=== PATIENT | male | born 1950 | race Caucasian/White ===

== ENCOUNTER 2017-11-16 21:04 | Inpatient (IN) | payer OTHER, SELFPAY ==
[2017-11-16] VITALS (8 sets, daily range): BP systolic 172–222; BP diastolic 93–111; PULSE 51–92; RESP 15–19; TEMP 35.8–36.4; O2SAT 95–97; BMI 50.1
--- NOTE | 2017-11-16 21:12 | RAD_ITS ---
STUDY: X-RAY CHEST REASON FOR EXAM: Male, 66 years old. Cough TECHNIQUE: Single frontal view COMPARISON: None. FINDINGS: The lungs are not fully expanded. There is no demonstrated pleural abnormality. Cardiomegaly. Normal mediastinum and deandre. Normal visualized pulmonary arteries. Normal visualized aortic arch and descending thoracic aorta. Normal visualized thoracic spine. Normal visualized ribs, clavicles, and shoulders. There is no demonstrated abnormality of the visualized soft tissue structures of the upper abdomen. RAD/Chest 1 View IMPRESSION: Cardiomegaly. Electronically Signed: Jagdish Benito DO at 22:34 EDT Tel [phone], Service support ,
--- NOTE | 2017-11-16 21:12 | EKG12_ITS ---
Test Reason : NEURO Blood Pressure : / mmHG Vent. Rate : 054 BPM Atrial Rate : 054 BPM P-R Int : 176 ms QRS Dur : 098 ms QT Int : 424 ms P-R-T Axes : 083 -37 -12 degrees QTc Int : 402 ms Sinus bradycardia Left axis deviation Abnormal ECG Confirmed by CATRACHITO CARVAJAL ([id number]), news editor LESTER EMERSON ([id number] on 11/20/2017 1:40:43 PM Referred By: MR Confirmed By:CATRACHITO CARVAJAL
--- NOTE | 2017-11-16 21:12 | CT_ITS ---
STUDY: CT BRAIN WITHOUT CONTRAST REASON FOR EXAM: Male, 66 years old. Right-sided facial droop with numbness RADIATION DOSAGE (If Supplied By Facility): CTDIvol = ( 44.99 ) mGy, DLP = ( 796.11 ) mGycm TECHNIQUE: Transaxial CT imaging of the brain was performed without administration of intravenous contrast material. Individualized dose optimization techniques were used for this CT. COMPARISON: Previous report of 07/05/2010 FINDINGS: Normal soft tissue structures. Normal calvarium. There is mild cerebral atrophy with widening of the extra-axial spaces and ventricular dilatation. There are areas of decreased attenuation within the white matter tracts of the supratentorial brain, consistent with microvascular disease changes. Normal basal ganglia and thalami. Normal brainstem. There is mild cerebellar atrophy. There is no intracranial hemorrhage. There are no findings of an acute ischemic infarction. There is a polypoid defect of the posterolateral left maxillary sinus consistent with a mucoid retention cyst. CT/Brain/Head without Contrast IMPRESSION: Chronic involutional changes of the brain. Small polypoid defect of the posterior left maxillary sinus consistent with a mucoid retention cyst. If acute infarct is clinically suspected, MRI may be helpful for further evaluation at this time. Electronically Signed: Jeffry Conti MD at 22:34 EDT , Service support ,
[2017-11-16 21:16] LABS: Bedside Glucose 118 mg/dL (70-110)
[2017-11-16 21:41] LABS: Absolute Lymphocyte Count 2.22 X10^3/ul (0.83-4.51); Absolute Neutrophil Count 3.6 X10^3/uL (2.0-7.7); Basophil# 0.01 X10^3/uL; Basophil% 0.1 % (0-1); Eosinophil# 0.36 X10^3/uL; Eosinophils% 5.3 % (0-5); Hematocrit 43.5 % (40-54); Hemoglobin 14.6 g/dl (13.0-16.5); Lymphocyte # 2.22 X10^3/ul (4.0); Lymphocyte % 32.6 % (19-41); Mean Corp Hgb Conc 33.6 g/gl (32-36); Mean Corpuscular Hgb 29.6 pg (27.0-32.0); Mean Corpuscular Volume 88.2 fL (80-94); Mean Platelet Vol. 11.1 fl (6.2-12.0); Monocyte# 0.62 X10^3/uL; Monocyte% 9.1 % (0-10); Neutrophil % 52.8 % (47-70); Platelet Count 133 K/mm3 (150-450); RBC Distribution Width CV 13.5 % (11.6-14.6); RBC Distribution Width SD 43.7 fl (35.1-43.9); Red Blood Count 4.93 M/mm3 (4.6-6.2); White Blood Count 6.8 K/mm3 (4.4-11.0)
[2017-11-16 21:42] LABS: POSITIVE COUNT NO; POSITIVE DIFFERENTIAL NO; POSITIVE MORPHOLOGY NO
[2017-11-16 21:45] LABS: Partial Thromboplast Time 34.5 Seconds (24.1-36.2); Prothrombin Time (Protime)PT. 12.9 SECONDS (11.7-14.9)
[2017-11-16 21:48] LABS: Anion Gap 6 (5-15); BUN 23 mg/dL (7-18); BUN/Creat Ratio 15.1 RATIO (10-20); Calcium,Total 8.7 mg/dL (8.5-10.1); Chloride 105 mmol/L (98-107); Creatinine, Serum 1.52 mg/dL (0.70-1.30); EST Glomerular Filtration Rate 49 mL/min (>60); Est Glom Filt Rate - Afr Amer 59 mL/min (>60); Estimated Creatinine Clearance 48.45 ml/min; Glucose 112 mg/dL (74-106); Potassium 4.6 mmol/L (3.5-5.1); Sodium Level 141 mmol/L (136-145)
--- NOTE | 2017-11-16 21:49 | HP.PCM_ITS ---
Problem List (1) Chronic pain syndrome Status: Chronic (2) HTN (hypertension) Status: Chronic Qualifiers: Hypertension type: essential hypertension Qualified Code(s): I10 - Essential (primary) hypertension (3) GERD (gastroesophageal reflux disease) Status: Chronic Qualifiers: Esophagitis presence: esophagitis presence not specified Qualified Code(s) : K21.9 - Gastro-esophageal reflux disease without esophagitis (4) Morbid obesity Status: Chronic (5) S/P kidney transplant Status: Chronic (6) Osteoarthritis Status: Chronic Qualifiers: Osteoarthritis location: unspecified site Osteoarthritis type: unspecified Qualified Code(s): M19.90 - Unspecified osteoarthritis, unspecified site (7) End stage renal failure on dialysis Status: Chronic (8) Cirrhosis of liver Status: Chronic Qualifiers: Hepatic cirrhosis type: unspecified hepatic cirrhosis Ascites presence: unspecified Qualified Code(s): K74.60 - Unspecified cirrhosis of liver (9) Chronic nonalcoholic liver disease Status: Chronic (10) Obstructive sleep apnea Status: Chronic (11) Anemia Status: Chronic Qualifiers: Anemia type: due to chronic kidney disease (12) S/P liver transplant Status: Chronic (13) TIA (transient ischemic attack) Status: Acute Qualifiers: Transient cerebral ischemia type: unspecified Qualified Code(s): G45.9 - Transient cerebral ischemic attack, unspecified (14) Hypertensive emergency Status: Acute History of Present Illness Date of Admission: 11/16/17 Chief Complaint: R sided paresthesias, Facial Droop, transient The patient is a 66 y/o M w/ PMHx: Hx Dooley's Palsy, Morbid Obesity, HTN, HLD, OA , ESRD prior on HD s/p Renal Transplant, NALD w/ Cirrhosis s/p Liver Transplant , PAUL, AOCD who presents to the [facility] ED on 11/16/17 with history of onset right sided facial droop, slurred speech and associated R facial paresthesias as well as RUE paresthesias, witnessed and confirmed per spouse, lasted 20-30 minutes and resolved. He notes that he has had similar episodes of R sided, both upper and lower extremity paresthesias prior to this as well that were transient. The patient and family note that he was supposed to have renal artery stenting but was unable to tolerate the procedure. He has been only following with [facility] he notes and family interested in local option as well given ongoing HTN. He notes he has been having SBP 200-210 frequently toward the evening time and upon awakening but following his AM BP regimen it will transiently improve. In the ED work-up included T 96.4, HR 50s, BP 222/111-->193 /111, RR 15, 96% on RA, unremarkable CBC, normal coags, BMP w/ BUN/Cr 23/1.52, glucose 112, trop < 0.02, EKG with SB, CXR unremarkable, CT head with small polypoid defect posterior L maxillary sinus consistent with mucoid retention cyst. In the ED patient administered hydralazine in the ED prior to admission. Past Medical History Past Medical History (Chronic Problems): Chronic Problems Chronic pain syndrome (Chronic) HTN (hypertension) (Chronic) GERD (gastroesophageal reflux disease) (Chronic) Morbid obesity (Chronic) S/P kidney transplant (Chronic) S/P liver transplant (Chronic) Osteoarthritis (Chronic) Obesity (Chronic) Hyponatremia (Chronic) Hypokalemia (Chronic) Hydronephrosis (Chronic) End stage renal failure on dialysis (Chronic) Cirrhosis of liver (Chronic) Chronic nonalcoholic liver disease (Chronic) Obstructive sleep apnea (Chronic) Hepatic encephalopathy (Chronic) Anasarca (Chronic) Superficial thrombophlebitis (Chronic) Partial small bowel obstruction (Chronic) Anemia (Chronic) Allergies morphine Allergy (Intermediate, Verified 12/02/16 13:22) Unknown DID NOT WORK, GOT WORSE metformin Allergy (Verified 12/02/16 13:22) Other pregabalin [From Lyrica] Allergy (Verified 12/02/16 13:22) Other TREMORS Home Medications: Ambulatory Orders Medication Instructions Recorded Amlodipine [Norvasc] 5 mg PO DAILY 01/14/15 Carvedilol [Coreg] 25 mg PO BID 01/14/15 Docusate 100 mg PO PRN PRN 01/14/15 Losartan Potassium [Cozaar] 25 mg PO BID 01/14/15 Magnesium Oxide [Mag-Ox 400] 1,600 mg PO DAILY 01/14/15 Mycophenolate Mofetil [Cellcept] 1,000 mg PO BID 01/14/15 Pantoprazole Granules [Protonix 40 mg PO DAILY 01/14/15 Granules] Prednisolone 5 mg PO DAILY 01/14/15 Tacrolimus [Astagraf Xl] 1 mg PO BID 01/14/15 Zafirlukast [Accolate] 20 mg PO BID PRN 01/14/15 Fluticasone/Salmeterol [Advair 1 puff INHALATION PRN PRN 11/16/17 250/50 Mcg Diskus] Hydrocodone Bitartrate [Zohydro ER] 5 mg PO PRN PRN 11/16/17 Hydromorphone HCl [Exalgo] 16 mg PO DAILY 11/16/17 Sulfamethoxazole/Trimethoprim 1 each PO QWEEK 11/16/17 [Sulfamethoxazole-Tmp Ds Tablet] Surgical History: - - Renal and Liver Transplant, L TKR, R TKR, L wrist carpal tunnel release, Hernia repair with mesh, Cholecystectomy. Psychiatric History: No pertinent psych hx Lives: Spouse/ Significant Other Smoking Status: Never smoker Tobacco Use: Non-smoker Alcohol: None Drugs: None - *Family History Maternal History Items: No pertinent history Paternal History Items: No pertinent history Review of Systems Constitutional: Reports: Malaise, Fatigue. Denies: Chills, Fever, Weight Change HEENT: Reports: - - Facial Droop. Denies: Head Aches, Sinus Congestion, Sinus Drainage Cardiovascular: Denies: Chest Pain, Palpitations Respiratory: Denies: Cough, Shortness of breath at rest, Sputum production Gastrointestinal: Denies: Abdominal Pain, Nausea, Vomiting Genitourinary: Denies: Dysuria Musculoskeletal: Denies: Joint Pain, Joint Tenderness Skin: Denies: Rash, Wounds Neurological: Reports: Slurred speech, Numbness, Tingling. Denies: Focal weakness Psychiatric: Denies: Anxiety, Depression, Homicidal Ideations, Suicidal Ideations Hematologic/ Lymphatic: Denies: Easy Bruising, Easy Bleeding VTE Information - Inpt Only VTE Present on Admission: No VTE Mechan Device Prophylaxis: SCD's VTE Pharm Prophylaxis ordered?: Yes Patient Problems: Active and Suspected Problems TIA (transient ischemic attack) (Acute) Hypertensive emergency (Acute) Subjective: Laying in the ED bed, NAD, remains completely resolved R sided paresthesias/ facial droop/slurred speech. Objective: Physical Examination: General: awake, alert, oriented x 3 and cooperative, seated upright in the ED bed in no apparent distress. Skin: normal color, turgor, no icterus, cyanosis. HEENT: AT/NC, EOMI, PERRLA, MMM, no carotid bruits or JVD noted. Lungs: CTA bilaterally, moderate effort, mild decrease BL bases, no rales, ronchi or wheezing. Heart: Bradycardic with regular rhythm; no gallop, rub audible. Abdomen: soft, morbidly obese, NTTP, ND, normal BS, unable to assess HSM secondary to habitus. Extremities: no cyanosis, clubbing, or edema. Neurological: patient awake, alert, oriented x 3; cognitive function intact; pupils equally reactive to light and accomodation; cranial nerves II-XII grossly normal, moving all 4 extremities, no focal deficits, strength moderately globally decreased secondary to habitus, lack of abdominal musculature following transplant surgeries, sensation intact, facial droop resolved, FTN, HTS appropriate, negative babinski BL. Psychiatric: affect appears normal, no acute evidence of depressive or anxiety feelings. - Physical Exam Vital Signs Temp Pulse Resp BP Pulse Ox 96.4 F L 92 19 H 185/111 H 97 11/16/17 21:04 11/16/17 21:24 11/16/17 21:24 11/16/17 21:24 11/16/17 21:24 Oxygen Delivery Method Room Air Weight: 339 lb 4.662 oz Body Mass Index (BMI) 50.1 Finger Stick Blood Glucose 118 Laboratory Tests Past 24 Hrs 11/16/17 11/16/17 11/16/17 21:15 21:15 21:15 WBC 6.8 RBC 4.93 Hgb 14.6 Hct 43.5 MCV 88.2 MCH 29.6 MCHC 33.6 RDW 13.5 RDW Differential 43.7 Plt Count 133 L MPV 11.1 Immature Gran % (Auto) 0.100 Neut % (Auto) 52.8 Lymph % (Auto) 32.6 [place] % (Auto) 9.1 Eos % (Auto) 5.3 H Baso % (Auto) 0.1 Absolute Neuts (auto) 3.6 Absolute Lymphs (auto) 2.22 Total Counted Not Reportable PT 12.9 INR 1.0 APTT 34.5 Sodium 141 Potassium 4.6 Chloride 105 Carbon Dioxide 30.0 Anion Gap 6 BUN 23 H Creatinine 1.52 H Estim Creat Clear Calc 48.45 Est GFR (MDRD) Af Amer 59 L Est GFR (MDRD) Non-Af 49 L BUN/Creatinine Ratio 15.1 Glucose 112 H Calcium 8.7 Troponin I < 0.02 POC Glucose 11/16/17 21:09 POC Glucose 118 H Assessment/Plan Active and Suspected Problems TIA (transient ischemic attack) (Acute) Hypertensive emergency (Acute) The patient is a 66 y/o M w/ PMHx: Hx Dooley's Palsy, Morbid Obesity, HTN, HLD, OA , ESRD prior on HD s/p Renal Transplant, NALD w/ Cirrhosis s/p Liver Transplant , PAUL, AOCD who presents to the [facility] ED on 11/16/17 with history of onset right sided facial droop, slurred speech and associated R facial paresthesias as well as RUE paresthesias, witnessed and confirmed per spouse, lasted 20-30 minutes and resolved. He notes that he has had similar episodes of R sided, both upper and lower extremity paresthesias prior to this as well that were transient. (1) Right sided facial droop, slurred speech and associated R facial paresthesias as well as RUE paresthesias secondary to TIA: High risk for CVA given uncontrolled HTN disease. In the ED work-up included CBC unremarkable, BMP w/ BUN/Cr 23/1.52, CT Head w/ no acute process, CXR w/ no acute findings, cardiomegaly. Patient was administered hydralazine in the ED. Will admit to PCU , will obtain MRI Brain, MRA Head and Neck, ECHO, PT/OT/Speech/Nutrition evaluation per protocol. Will consult Neurology for evaluation given complicated presentation w/ hypertensive emergency. Will increase home regimen, has not had PM regimen with PRN hydralazine, maintain on asa and add plavix pending Neurology assessment especially given ? renal artery stenosis, statin w / AM FLP, fall precautions. Mag, TSH pending. (2) Hypertensive Emergency w/ Suspected Renal Artery Stenosis: Ongoing hypertension, uncontrolled, likely secondary to renal artery stenosis with failed stent placement per discussion with patient, given hydralazine in the ED , has not had PM regimen, will increase home regimen w/ norvasc, coreg, losartan , PRN hydralazine. Will obtain Renal Artery US to further assess status of stenosis. As noted above, will maintain on asa, plavix. Will consult Dr. Kelly, Nephrology, secondary to ongoing issues with blood pressure and eagerness to have local parachutist/combatant diver qualified. (3) ESRD prior on HD s/p Renal Transplant, NALD w/ Cirrhosis s/p Liver Transplant: Admission BUN/Cr 23/1.52, unclear current baseline fx, will trend, maintain on home regimen CellCept, prednisone, tacrolimus, prophylactic Bactrim. (4) Chronic Pain Syndrome: Maintain on home chronic pain regimen, noted prior visits with Dr. Beckman. (5) AOCD: Admission Hgb 14.6, stable, repeat CBC in AM. (6) Morbid Obesity: Weight loss and lifestyle changes encouraged, nutrition consulted. (7) GERD: PPI. (8) PAUL: CPAP q HS. (9) DVT Prophylaxis: SCDs, heparin. Code Visit Inpatient E&M: 91496 Init Hosp L3
--- NOTE | 2017-11-16 22:04 | NURSING ---
PT STATED THAT AT 0820 HE WAS HAVING A FACIAL DROOP, RIGHT SIDED WEAKNESS OF HIS ARM AND LEG BUT THAT RESOLVED UPON ARRIVAL.
--- NOTE | 2017-11-16 22:14 | ED.VISSUMM ---
- ER Visit Summary Date of Service: 11/16/17 Chief Complaint: Right-sided facial droop numbness and weakness History of Present Illness: The patient is a 66 M presenting for evaluation secondary to right-sided facial droop numbness and weakness. At 820 this evening the patient had a sudden onset of drooping of the right side of his face, numbness to the right face and right leg, and some slurred speech. This lasted about 30 minutes and then spontaneously resolved. Patient denies any recent illnesses. Patient does have a history of Dooley's palsy in the past, but states that this does not feel similar. Patient has an underlying history of hypertension and a liver and kidney transplant. Patient denies any prior history of stroke. Physical Examination: Vital signs are within normal limits except for initial blood pressure 211/111, repeat blood pressure 185/111, patient is afebrile. General: Patient is well-nourished well-developed and in no acute distress. Head: Normocephalic, atraumatic Eyes: Pupils equal round and reactive bilaterally, extra occular motion intact bialterally ENT: Moist mucous membranes Neck: Supple, no lymphadenopathy, no JVD, no meningismus CVS: Minimal bradycardia with a 2 out of 6 systolic murmur noted, no murmurs, rubs or gallops, radial pulses 2+ bilaterally Resp: Respirations nondistressed, lung sounds clear bilaterally Abdomen: Soft, nontender, nondistended, no palpable masses, normal bowel sounds Back: Nontender Extremities: Nontender, atraumatic, active full range of motion, no peripheral edema Skin: warm, no rashes, no petechia Neuro: Alert and oriented x 4, CN 2-12 intact, no lateralizing neurological defecits, NIH stroke scale is 0 Psyc: Normal affect Test Results: CBC unremarkable, chemistry shows BUN 23 creatinine 1.52, normal coagulation studies and troponin. EKG shows a sinus rate of [address] segments normal T waves and some left axis deviation noted. CT brain shows chronic changes Emergency Department Course and Treatment: Patient presented with symptomatology of a rather clear-cut TIA. Stroke workup is noted as above. Patient was given hydralazine for treatment of blood pressure. This point patient's ABCD 2 score is 5 and is relatively high risk for converting into a stroke I do believe that he requires admission. Patient will be admitted for further workup. Disposition: Admission Impression: 1. TIA 2. Hypertensive emergency This note was generated with [employer] dictation software. It may contain incorrect words, spelling, and punctuation that were not noted in review of the chart prior to signing ED Disposition - Plan for ED Patient: Chief Complaint: Neuro S/Sx Referrals: Shanelle Luz DO [Primary Care Provider] -
--- NOTE | 2017-11-16 22:17 | ED.DCSUM_ITS ---
- ER Visit Summary Date of Service: 11/16/17 Chief Complaint: Right-sided facial droop numbness and weakness History of Present Illness: The patient is a 66 M presenting for evaluation secondary to right-sided facial droop numbness and weakness. At 820 this evening the patient had a sudden onset of drooping of the right side of his face , numbness to the right face and right leg, and some slurred speech. This lasted about 30 minutes and then spontaneously resolved. Patient denies any recent illnesses. Patient does have a history of Dooley's palsy in the past, but states that this does not feel similar. Patient has an underlying history of hypertension and a liver and kidney transplant. Patient denies any prior history of stroke. Physical Examination: Vital signs are within normal limits except for initial blood pressure 211/111, repeat blood pressure 185/111, patient is afebrile. General: Patient is well-nourished well-developed and in no acute distress. Head: Normocephalic, atraumatic Eyes: Pupils equal round and reactive bilaterally, extra occular motion intact bialterally ENT: Moist mucous membranes Neck: Supple, no lymphadenopathy, no JVD, no meningismus CVS: Minimal bradycardia with a 2 out of 6 systolic murmur noted, no murmurs, rubs or gallops, radial pulses 2+ bilaterally Resp: Respirations nondistressed, lung sounds clear bilaterally Abdomen: Soft, nontender, nondistended, no palpable masses, normal bowel sounds Back: Nontender Extremities: Nontender, atraumatic, active full range of motion, no peripheral edema Skin: warm, no rashes, no petechia Neuro: Alert and oriented x 4, CN 2-12 intact, no lateralizing neurological defecits, NIH stroke scale is 0 Psyc: Normal affect Test Results: CBC unremarkable, chemistry shows BUN 23 creatinine 1.52, normal coagulation studies and troponin. EKG shows a sinus rate of [address] segments normal T waves and some left axis deviation noted. CT brain shows chronic changes Emergency Department Course and Treatment: Patient presented with symptomatology of a rather clear-cut TIA. Stroke workup is noted as above. Patient was given hydralazine for treatment of blood pressure. This point patient's ABCD 2 score is 5 and is relatively high risk for converting into a stroke I do believe that he requires admission. Patient will be admitted for further workup. Disposition: Admission Impression: 1. TIA 2. Hypertensive emergency This note was generated with [employer] dictation software. It may contain incorrect words, spelling, and punctuation that were not noted in review of the chart prior to signing ED Disposition - Plan for ED Patient: Chief Complaint: Neuro S/Sx Referrals: Shanelle Luz DO [Primary Care Provider] -
--- NOTE | 2017-11-16 22:24 | NURSING ---
PT STATED TO ME AND DOCTOR YOLIS THAT HIS BLOOD PRESSURE NORMALLY RUNS IN THE 200/100'S. IS SUPPOSE TO FOLLOW UP WITH A SPECIALIST.
--- NOTE | 2017-11-16 22:33 | NURSING ---
NOT GIVING TRANDATE RIGHT NOW BECAUSE OF PULSE, BELOW 60.
[2017-11-16] MEDS: hydrALAZINE 20 MG/ML Vial 10 MG IV (23:15)
--- NOTE | 2017-11-16 23:57 | ECHOD_ITS ---
Reason For Study: TIA/CVA Procedure This was a 2D Doppler, Color Flow transthoracic echocardiogram. The study was technically difficult. Exam performed portable in patient room. Left Ventricle Normal size and thickness. The estimated ejection fraction is 75 %. Stage 1 diastolic dysfunction. No regional wall motion abnormalities noted. Right Ventricle Normal size and thickness. Normal systolic function. Atria Normal left atrium. Normal right atrium. Normal atrial septum. Bubble contrast study negative for right to left interatrial shunt. Mitral Valve The mitral valve is structurally normal. No prolapse or stenosis seen. Tricuspid Valve Normal tricuspid valve. Unable to estimate RV systolic pressure/pulmonary artery pressure due to technically difficult study. Aortic Valve Trisinus/trileaflet aortic valve. Mild diffuse aortic valve thickening. Mild aortic stenosis. Pulmonic Valve Normal pulmonic valve. Great Vessels Normal aortic root. Normal arch. Normal inferior vena cava. Inferior vena cava collapse with sniff. Pericardium/Pleural No pericardial effusion. Medication Performed a rapid injection of agitated mix of 9 cc saline and 1cc air to assess for atrial septal defect. MMode/2D Measurements & Calculations LVIDd: 4.7 cm IVSd: 1.7 cm LVOT diam: 2.1 cm LVIDs: 3.2 cm LVPWd: 1.5 cm LVOT area: 3.5 cm2 RVDd: 2.9 cm FS: 31.5 % Ao root diam: 3.4 cm LAV(MOD-bp): 60.3 ml LA A4 area: 21.2 cm2 LA dimension: 4.9 cm LAV(MOD-bp) Indexed: 23.4 ml/m2 LAV(MOD-sp2): 66.7 ml LAV(MOD-sp4): 52.4 ml RA A4 area: 15.6 cm2 Doppler Measurements & Calculations MV E max femi: 56.2 cm/sec Lat Peak E' Femi: 7.9 cm/sec Med Peak E' Femi: 6.3 cm/sec MV A max femi: 96.3 cm/sec E/E' lat: 7.1 E/E' med: 9.0 MV E/A: 0.58 Ao V2 max: 240.5 cm/sec LV V1 max: 146.5 cm/sec SV(LVOT): 114.7 ml Ao max P.1 mmHg LV V1 max P.6 mmHg Ao V2 mean: 162.1 cm/sec LV V1 mean P.9 mmHg Ao mean P.8 mmHg LV V1 mean: 107.3 cm/sec Ao V2 VTI: 44.1 cm LV V1 VTI: 32.8 cm BENJA(I,D): 2.6 cm2 BENJA(V,D): 2.1 cm2 PA V2 max: 142.5 cm/sec Interpretation Summary The estimated ejection fraction is 75 %. Stage 1 diastolic dysfunction. Bubble contrast study negative for right to left interatrial shunt. Unable to estimate RV systolic pressure/pulmonary artery pressure due to technically difficult study. Mild aortic stenosis. The study was technically difficult. There is no comparison study available. Ordering Physician: Patria Damon Referring Physician: Shanelle Luz Performed By: Amberly Perla RDCS, [facility]
[2017-11-17] VITALS (34 sets, daily range): BP systolic 125–241; BP diastolic 76–138; PULSE 56–95; RESP 17–22; TEMP 36.6–37.2; O2SAT 92–97; BMI 47.9
[2017-11-17 00:32] LABS: Magnesium 1.8 mg/dL (1.6-2.6); Thyroid Stim Hormone (TSH) 2.75 uIU/mL (0.358-3.74)
[2017-11-17] MEDS: hydrALAZINE 20 MG/ML Vial 10 MG IV (00:34)
[2017-11-17] MEDS: HYDROmorphone 0.5 MG/0.5 ML SYRINGE IV ×4 (00:35→16:21)
[2017-11-17] MEDS: Carvedilol 25 MG Tablet PO ×2 (00:35→22:04)
[2017-11-17] MEDS: Clopidogrel Bisulfate 75 MG Tablet PO (00:35)
[2017-11-17] MEDS: Losartan Potassium 50 MG Tablet PO ×2 (00:35→22:04)
[2017-11-17] MEDS: amLODIPine 10 MG Tablet PO (00:35)
[2017-11-17] MEDS: 0.9% NaCl Peripheral Flush Adult/Peds IV ×8 (00:35→12:43)
[2017-11-17] MEDS: Ondansetron 4 MG/2 ML Vial IV ×2 (01:59→17:03)
[2017-11-17] MEDS: oxyCODONE 5 MG Tablet PO ×2 (05:38→22:10)
[2017-11-17] MEDS: Nystatin Powder 15gm Bottle 1 APPLIC TOPICAL ×3 (05:38→22:04)
[2017-11-17 05:46] LABS: Hematocrit 41.9 % (40-54); Hemoglobin 13.8 g/dl (13.0-16.5); Mean Corp Hgb Conc 32.9 g/gl (32-36); Mean Platelet Vol. 10.6 fl (6.2-12.0); Platelet Count 122 K/mm3 (150-450); RBC Distribution Width CV 13.6 % (11.6-14.6); RBC Distribution Width SD 44.3 fl (35.1-43.9); Red Blood Count 4.76 M/mm3 (4.6-6.2); Scan Indicated on CBC? Y/N NO; White Blood Count 6.6 K/mm3 (4.4-11.0)
[2017-11-17 05:59] LABS: Anion Gap 8 (5-15); BUN 23 mg/dL (7-18); BUN/Creat Ratio 15.5 RATIO (10-20); Calcium,Total 8.6 mg/dL (8.5-10.1); Chloride 106 mmol/L (98-107); Cholesterol 173 mg/dL (200); Creatinine, Serum 1.48 mg/dL (0.70-1.30); EST Glomerular Filtration Rate 51 mL/min (>60); Est Glom Filt Rate - Afr Amer 61 mL/min (>60); Estimated Creatinine Clearance 49.76 ml/min; Glucose 147 mg/dL (74-106); High Density Lipoprotein 31 mg/dL; Sodium Level 141 mmol/L (136-145); Triglycerides 211 mg/dL; Very Low Density Lipoprotein 42 mg/dL (5-40)
--- NOTE | 2017-11-17 07:25 | MRI_ITS ---
STUDY: MRI BRAIN WITHOUT CONTRAST REASON FOR EXAM: Male, 66 years old. Dizziness and vomiting TECHNIQUE: Standardized multiplanar fat and water weighted pulse sequences were obtained. COMPARISON: CT the brain on November 17, 2017 FINDINGS: Moderate atrophy and advanced periventricular white matter ischemic changes without mass effect or restricted diffusion. Vertebrobasilar dolichoectasia consistent with systemic hypertension Normal bilateral basal ganglia. Normal thalami. There is no extra-axial fluid accumulation. Normal flow voids within the major intracranial circulation suggesting patency by spin echo criteria. Normal sella turcica, pituitary gland, infundibular stalk, optic chiasm and hypothalamus. Normal tectal plate and pineal gland. Normal midbrain, sharee and medulla. Normal cerebellum. Normal basal cisterns. Normal bilateral temporal bones. Normal bilateral internal auditory canals. No demonstrated orbital abnormality, within the constraints of a routine brain study. Mucous retention cyst is noted in left maxillary sinus in association with mild mucosal thickening of the bilateral ethmoid and sphenoid sinuses Normal calvarium and skull base. Normal visualized soft tissue structures. Normal visualized upper cervical spine. MRI/Brain without Contrast IMPRESSION: Moderate atrophy and advanced periventricular white matter ischemic changes but no evidence for acute infarct. Electronically Signed: Tyrese Forte MD at 22:42 EDT , Service support ,
--- NOTE | 2017-11-17 07:25 | MRI_ITS ---
STUDY: MRA OF THE HEAD WITHOUT CONTRAST REASON FOR EXAM: Male, 66 years old. Dizziness TECHNIQUE: 3-D [id number] (TOF) imaging was performed with MIPs. The study was performed unenhanced. COMPARISON: None. FINDINGS: Normal bilateral petrous carotid arteries. Normal right cavernous carotid artery with a normal supraclinoid bifurcation. Normal left cavernous carotid artery with a normal supraclinoid bifurcation. Normal right A1 segments of the anterior cerebral artery. Normal left A1 segments of the anterior cerebral artery. Anterior communicating artery not visualized consistent with normal development old variant. Normal bilateral A2 segments of the anterior cerebral arteries. Normal right M1 and M2 segments of the middle cerebral arteries, with a normal M1 bifurcation. Normal left M1 and M2 segments of the middle cerebral arteries, with a normal M1 bifurcation. Normal right posterior communicating artery (PCOM). Normal left posterior communicating artery (PCOM). Normal bilateral vertebral arteries. Normal basilar artery with a normal basilar bifurcation. The visualized bilateral superior cerebellar (SCA) arteries are normal. Normal bilateral P1, P2 and visualized P3 segments of the posterior cerebral arteries. There is no demonstrated aneurysm of the [place] of [place]. There is no major vessel occlusion or hemodynamically significant stenosis. There is no demonstrated abnormality of the visualized brain. MRI/MRA Head ONLY without Contrast IMPRESSION: Normal MRA of the head Electronically Signed: Tyrese Forte MD at 22:43 EDT , Service support ,
[2017-11-17] MEDS: Metoclopramide 10 MG/2 ML Vial 5 MG IV (09:33)
--- NOTE | 2017-11-17 10:01 | CASEMGMT ---
Per Yolanda, PCU charge hand, pt requiring transfer and Dr. Lovell would like to verify that [facility] is in-network. According to [facility] network website, the [facility] is an in-network tertiary facility. Yolanda, charge hand, aware at this time. Jaime LOPEZ CM
--- NOTE | 2017-11-17 10:44 | PCM.PROGNOTE ---
Patient Problems: Active and Suspected Problems TIA (transient ischemic attack) (Acute) Hypertensive emergency (Acute) Subjective: Patient is a 66-year-old male with a past medical history of renal transplant, liver transplant for NEWELL, chronic pain syndrome, hypertension, GERD, morbid obesity, osteoarthritis, obstructive sleep apnea, renal artery stenosis and Dooley's palsy who presented to the ED on 11/16/17 with complaint of right facial droop and slurred speech. He also described right side she will paresthesias and right upper extremity paresthesia. Symptoms lasted approximately 20-30 minutes and then resolved. Vital signs at presentation to the emergency room were temp 90 six-point, pulse rate 59, blood pressure 222/111, respiratory rate 15 and he was 95-97% saturated on room air. CBC was remarkable for a low platelet count of 133,000 ad review of prior labs shows that he has had thrombocytopenia transiently in the past. The electrolytes were within normal limits and the BUN was 23 with a creatinine of 1.52. 1.52 is within his baseline. Troponin was less than 0.02. CT brain showed chronic involutional changes with a small polypoid defect of the posterior left maxillary sinus consistent with mucoid retention cyst. There were no acute findings. He was admitted to a monitored bed on PCU with a diagnosis of hypertensive emergency associated with TIA. He was given hydralazine in the emergency room and p.o. meds were restarted. He was then started on a nitroglycerin infusion and following that point of severe headache and had nausea and vomiting. Nitroglycerin drip has been discontinued. Denies any history of gastroparesis. He was seen at [facility] and scheduled for a renal artery stent however he was unable to tolerate the procedure because the interventionalist had difficulty due to his pannus and he requested that the procedure be aborted. Current blood pressure is 170/108 and this is elevated due to pain and nausea/anxiety now. Heart rate is 61 and he is afebrile. All lab was personally reviewed. Creatinine is 1.48 today. Platelets are 122,000. LDL is 100 and the HDL is 31. TSH is within normal limits. Blood sugar is 147 but a hemoglobin A1c in February 2017 was 5.8%. - Physical Exam General: Alert, Oriented x3, Cooperative, - - Appears to be having pain and he is nauseated and feels as though he is going to throw up again. Has had Zofran and Reglan and nausea persists. HEENT: Atraumatic, PERRLA, EOMI, Normocephalic Oral: No Gingival or Mucosal Lesions/ Ulcerations, Dry Mucosa Neck: Supple, Trachea Midline, - - He has a very short thick neck and it is not possible to evaluate for JVD Lungs: Clear to auscultation Cardiovascular: Regular rate, Regular Rhythm, Normal S1, Normal S2, No murmurs, No rub noted, No Gallop Abdomen: Bowel Sounds Present, Soft, Non Tender, Obese Extremities: No clubbing, No cyanosis, No edema, No Calf Tenderness, Peripheral Pulses Normal, - - he has hyperpigmentation of the LE's, primarily on the R, likely due to chronic venous insufficiency Skin: No rashes, No breakdown Musculoskeletal: No Muscle Wasting Neurological: Cranial nerves II-XII grossly intact, Neuro grossly intact Psych/Mental Status: Normal Affect, Appropriate Vital Signs Temp Pulse Resp BP Pulse Ox 98.2 F 61 18 170/108 H 94 11/17/17 09:34 11/17/17 09:34 11/17/17 09:34 11/17/17 09:34 11/17/17 09:34 Oxygen Delivery Method Room Air Weight: 324 lb 8.327 oz Body Mass Index (BMI) 47.9 Intake and Output for Last 24 Hours 11/15/17 11/16/17 11/17/17 23:59 23:59 23:59 Intake Total 0 / 0 Output Total 350 / 350 Balance 0 / 0 -350 / -350 Laboratory Tests Past 24 Hrs 11/17/17 11/17/17 11/17/17 01:45 05:30 05:30 WBC 6.6 RBC 4.76 Hgb 13.8 Hct 41.9 MCV 88.0 MCH 29.0 MCHC 32.9 RDW 13.6 RDW Differential 44.3 H Plt Count 122 L MPV 10.6 Sodium 141 Potassium 4.0 Chloride 106 Carbon Dioxide 27.0 Anion Gap 8 BUN 23 H Creatinine 1.48 H Estim Creat Clear Calc 49.76 Est GFR (MDRD) Af Amer 61 Est GFR (MDRD) Non-Af 51 L BUN/Creatinine Ratio 15.5 Glucose 147 H Calcium 8.6 Troponin I < 0.02 Triglycerides 211 H Cholesterol 173 LDL Cholesterol 100 VLDL Cholesterol 42 H HDL Cholesterol 31 L 11/17/17 05:30 WBC RBC Hgb Hct MCV MCH MCHC RDW RDW Differential Plt Count MPV Sodium Potassium Chloride Carbon Dioxide Anion Gap BUN Creatinine Estim Creat Clear Calc Est GFR (MDRD) Af Amer Est GFR (MDRD) Non-Af BUN/Creatinine Ratio Glucose Calcium Troponin I < 0.02 Triglycerides Cholesterol LDL Cholesterol VLDL Cholesterol HDL Cholesterol Assessment/Plan Active and Suspected Problems TIA (transient ischemic attack) (Acute) Hypertensive emergency (Acute) Impressions 1. Hypertensive emergency with TIA 2. Renal artery stenosis (of the transplanted kidney) - aborted attempt at stent - due to too much gas to visualize he artery.....this is generally an OP procedure 3. N/V/cephalgia -possibly related to overnight nitroglycerin infusion. Mucous membranes are dry and I suspect he has intravascular volume depletion and this is contributing to the PICKARD 4. Chronic renal failure-stage III, with history of renal transplant. 5. History of NEWELL with liver transplant. 6. Morbid obesity 7. Osteoarthritis 8. Chronic pain syndrome 9. GERD 10. dehydration 11. HLD - controlled 12. thrombocytopenia NS fluid bolus and then 0.45% at 100. Try Phenergan for nausea IV antihypertensives until the N/V resolves then add Hydralazine 25 mg TID Recheck a liver panel in the AM Increase hydralazine to 20 mg IV every 4 hours as needed systolic greater than 150 or diastolic greater than 90 discussed possible transfer with pt and . Explained that a renal artery stent is usually an OP procedure and would likely not occur over the weekend. they would prefer to stay at [facility] and we will get control of the BP. If can not control adequately with oral medications and PRN IV antihypertensives will transfer to the ICU for a nicardipine infusion. Would like to get control of the cephalgia, nausea/vomiting so that we can give oral medications. Code Visit Inpatient E&M: 10182 Subs Hosp L3
--- NOTE | 2017-11-17 10:55 | PN_ITS ---
Patient Problems: Active and Suspected Problems TIA (transient ischemic attack) (Acute) Hypertensive emergency (Acute) Subjective: Patient is a 66-year-old male with a past medical history of renal transplant, liver transplant for NEWELL, chronic pain syndrome, hypertension, GERD, morbid obesity, osteoarthritis, obstructive sleep apnea, renal artery stenosis and Dooley 's palsy who presented to the ED on 11/16/17 with complaint of right facial droop and slurred speech. He also described right side she will paresthesias and right upper extremity paresthesia. Symptoms lasted approximately 20-30 minutes and then resolved. Vital signs at presentation to the emergency room were temp 90 six-point, pulse rate 59, blood pressure 222/111, respiratory rate 15 and he was 95-97% saturated on room air. CBC was remarkable for a low platelet count of 133,000 ad review of prior labs shows that he has had thrombocytopenia transiently in the past. The electrolytes were within normal limits and the BUN was 23 with a creatinine of 1.52. 1.52 is within his baseline. Troponin was less than 0.02. CT brain showed chronic involutional changes with a small polypoid defect of the posterior left maxillary sinus consistent with mucoid retention cyst. There were no acute findings. He was admitted to a monitored bed on PCU with a diagnosis of hypertensive emergency associated with TIA. He was given hydralazine in the emergency room and p.o. meds were restarted. He was then started on a nitroglycerin infusion and following that point of severe headache and had nausea and vomiting. Nitroglycerin drip has been discontinued. Denies any history of gastroparesis. He was seen at [facility] and scheduled for a renal artery stent however he was unable to tolerate the procedure because the interventionalist had difficulty due to his pannus and he requested that the procedure be aborted. Current blood pressure is 170/108 and this is elevated due to pain and nausea/ anxiety now. Heart rate is 61 and he is afebrile. All lab was personally reviewed. Creatinine is 1.48 today. Platelets are 122, 000. LDL is 100 and the HDL is 31. TSH is within normal limits. Blood sugar is 147 but a hemoglobin A1c in February 2017 was 5.8%. - Physical Exam General: Alert, Oriented x3, Cooperative, - - Appears to be having pain and he is nauseated and feels as though he is going to throw up again. Has had Zofran and Reglan and nausea persists. HEENT: Atraumatic, PERRLA, EOMI, Normocephalic Oral: No Gingival or Mucosal Lesions/ Ulcerations, Dry Mucosa Neck: Supple, Trachea Midline, - - He has a very short thick neck and it is not possible to evaluate for JVD Lungs: Clear to auscultation Cardiovascular: Regular rate, Regular Rhythm, Normal S1, Normal S2, No murmurs, No rub noted, No Gallop Abdomen: Bowel Sounds Present, Soft, Non Tender, Obese Extremities: No clubbing, No cyanosis, No edema, No Calf Tenderness, Peripheral Pulses Normal, - - he has hyperpigmentation of the LE's, primarily on the R, likely due to chronic venous insufficiency Skin: No rashes, No breakdown Musculoskeletal: No Muscle Wasting Neurological: Cranial nerves II-XII grossly intact, Neuro grossly intact Psych/Mental Status: Normal Affect, Appropriate Vital Signs Temp Pulse Resp BP Pulse Ox 98.2 F 61 18 170/108 H 94 11/17/17 09:34 11/17/17 09:34 11/17/17 09:34 11/17/17 09:34 11/17/17 09:34 Oxygen Delivery Method Room Air Weight: 324 lb 8.327 oz Body Mass Index (BMI) 47.9 Intake and Output for Last 24 Hours 11/15/17 11/16/17 11/17/17 23:59 23:59 23:59 Intake Total 0 / 0 Output Total 350 / 350 Balance 0 / 0 -350 / -350 Laboratory Tests Past 24 Hrs 11/17/17 11/17/17 11/17/17 01:45 05:30 05:30 WBC 6.6 RBC 4.76 Hgb 13.8 Hct 41.9 MCV 88.0 MCH 29.0 MCHC 32.9 RDW 13.6 RDW Differential 44.3 H Plt Count 122 L MPV 10.6 Sodium 141 Potassium 4.0 Chloride 106 Carbon Dioxide 27.0 Anion Gap 8 BUN 23 H Creatinine 1.48 H Estim Creat Clear Calc 49.76 Est GFR (MDRD) Af Amer 61 Est GFR (MDRD) Non-Af 51 L BUN/Creatinine Ratio 15.5 Glucose 147 H Calcium 8.6 Troponin I < 0.02 Triglycerides 211 H Cholesterol 173 LDL Cholesterol 100 VLDL Cholesterol 42 H HDL Cholesterol 31 L 11/17/17 05:30 WBC RBC Hgb Hct MCV MCH MCHC RDW RDW Differential Plt Count MPV Sodium Potassium Chloride Carbon Dioxide Anion Gap BUN Creatinine Estim Creat Clear Calc Est GFR (MDRD) Af Amer Est GFR (MDRD) Non-Af BUN/Creatinine Ratio Glucose Calcium Troponin I < 0.02 Triglycerides Cholesterol LDL Cholesterol VLDL Cholesterol HDL Cholesterol Assessment/Plan Active and Suspected Problems TIA (transient ischemic attack) (Acute) Hypertensive emergency (Acute) Impressions 1. Hypertensive emergency with TIA 2. Renal artery stenosis (of the transplanted kidney) - aborted attempt at stent - due to too much gas to visualize he artery.....this is generally an OP procedure 3. N/V/cephalgia -possibly related to overnight nitroglycerin infusion. Mucous membranes are dry and I suspect he has intravascular volume depletion and this is contributing to the PICKARD 4. Chronic renal failure-stage III, with history of renal transplant. 5. History of NEWELL with liver transplant. 6. Morbid obesity 7. Osteoarthritis 8. Chronic pain syndrome 9. GERD 10. dehydration 11. HLD - controlled 12. thrombocytopenia NS fluid bolus and then 0.45% at 100. Try Phenergan for nausea IV antihypertensives until the N/V resolves then add Hydralazine 25 mg TID Recheck a liver panel in the AM Increase hydralazine to 20 mg IV every 4 hours as needed systolic greater than 150 or diastolic greater than 90 discussed possible transfer with pt and . Explained that a renal artery stent is usually an OP procedure and would likely not occur over the weekend. they would prefer to stay at [facility] and we will get control of the BP. If can not control adequately with oral medications and PRN IV antihypertensives will transfer to the ICU for a nicardipine infusion. Would like to get control of the cephalgia, nausea/vomiting so that we can give oral medications. Code Visit Inpatient E&M: 04494 Subs Hosp L3
[2017-11-17] MEDS: hydrALAZINE 20 MG/ML Vial IV ×2 (11:00→16:15)
[2017-11-17] MEDS: 0.9% Normal Saline 1,000 ML 999 ML IV (11:18)
--- NOTE | 2017-11-17 12:09 | CT_ITS ---
STUDY: CT BRAIN WITHOUT CONTRAST REASON FOR EXAM: Male, 66 years old. Headaches. Hypertensive emergency. RADIATION DOSAGE (If Supplied By Facility): CTDIvol = ( 44.99 ) mGy, DLP = ( 829.85 ) mGycm TECHNIQUE: Transaxial CT imaging of the brain was performed without administration of intravenous contrast material. Individualized dose optimization techniques were used for this CT. COMPARISON: Comparison is made with prior examination dated November 16, 2017. FINDINGS: Normal soft tissue structures. Normal calvarium. There is mild cerebral atrophy with widening of the extra-axial spaces and ventricular dilatation. There are areas of decreased attenuation within the white matter tracts of the supratentorial brain, consistent with microvascular disease changes. Normal basal ganglia and thalami. Normal brainstem. There is mild cerebellar atrophy. There is no intracranial hemorrhage. There are no findings of an acute ischemic infarction. Atherosclerotic calcification of the vertebral arteries and cavernous portions of the internal carotid arteries bilaterally. Stable left maxillary sinus polyp or retention cyst. CT/Brain/Head without Contrast IMPRESSION: Chronic involutional changes of the brain. Electronically Signed: Cliff Priest MD at 13:56 EDT Tel [phone], Service support ,
--- NOTE | 2017-11-17 12:26 | RAD_ITS ---
STUDY: X-RAY - ABDOMEN/PELVIS REASON FOR EXAM: Male, 66 years old. Nausea vomiting and diarrhea TECHNIQUE: AP supine and decubitus views of the abdomen and pelvis. COMPARISON: Prior report of 15 October 2009 FINDINGS: Normal visualized lung bases. There is an unremarkable bowel gas pattern. There is no demonstrated free abdominal air. The visualized liver, spleen and kidneys are grossly normal in size and morphology. Surgical clips are seen in the right upper quadrant of the abdomen, right pelvic region, and right inguinal area. There are diffuse degenerative changes of the visualized lumbar spine. RAD/Abd Inc Decub and/or Erect IMPRESSION: There is no evidence of ileus, obstruction, or free intraperitoneal air. Electronically Signed: Jeffry Conti MD at 16:04 EDT , Service support ,
[2017-11-17] MEDS: Ondansetron 4 MG/2 ML Vial 8 MG IV (12:38)
--- NOTE | 2017-11-17 13:11 | PCM.CONS.GEN ---
Problem List (1) TIA (transient ischemic attack) Status: Acute Qualifiers: Transient cerebral ischemia type: unspecified Qualified Code(s): G45.9 - Transient cerebral ischemic attack, unspecified Reason for Consult Date of Consultation: 11/17/17 Reason for Consultation: TIA History of Present Illness: The patient is a 66 year old CM with PMH HTN, HLD, ESRD was on HD, S/P renal transplant, s/p liver transplant for NEWELL on Tacrolimus and cellcept, OA, PAUL, morbid obesity admitted with right sided numbness, facial droop and slurred speech and found to have uncontrolled HTN. History is obtained from medical records, patient and his . Per he had some numbness in the right arm about 2 days ago which later resolved, he did not seek any medical attention for the same, then yesterday (11/16/17) he again had right sided numbness and per she noticed facial droop and per documentation also had some slurred speech, that resolved in about 20-30 minutes per documentation and he was brought to the hospital, found to have SBP>200s at admission. His ABCD2 score was 5 on admission. Patient was on ASA at home, has been started on dual AP since admission. Per he had attempted renal artery stenting in 2017 at [facility] [place] but could not tolerate the same. He lives with his , denies any frequent falls, does not use cane or walker to ambulate, does not need any assistance for his ADLs, does drive without any issues. He has been having generalized PICKARD for the past 2 weeks, without photophobia or phonophobia. Denies any new onset focal motor weakness, sensory loss, visual disturbances or speech disturbances. [] Past Medical History Past Medical History (Chronic Problems): Chronic Problems Chronic pain syndrome (Chronic) HTN (hypertension) (Chronic) GERD (gastroesophageal reflux disease) (Chronic) Morbid obesity (Chronic) S/P kidney transplant (Chronic) S/P liver transplant (Chronic) Osteoarthritis (Chronic) Obesity (Chronic) Hyponatremia (Chronic) Hypokalemia (Chronic) Hydronephrosis (Chronic) End stage renal failure on dialysis (Chronic) Cirrhosis of liver (Chronic) Chronic nonalcoholic liver disease (Chronic) Obstructive sleep apnea (Chronic) Hepatic encephalopathy (Chronic) Anasarca (Chronic) Superficial thrombophlebitis (Chronic) Partial small bowel obstruction (Chronic) Anemia (Chronic) Allergies morphine Allergy (Intermediate, Verified 12/02/16 13:22) Unknown DID NOT WORK, GOT WORSE metformin Allergy (Verified 12/02/16 13:22) Other pregabalin [From Lyrica] Allergy (Verified 12/02/16 13:22) Other TREMORS Home Medications: Ambulatory Orders Medication Instructions Recorded Amlodipine [Norvasc] 5 mg PO DAILY 01/14/15 Carvedilol [Coreg] 25 mg PO BID 01/14/15 Docusate 100 mg PO PRN PRN 01/14/15 Losartan Potassium [Cozaar] 75 mg PO BID 01/14/15 Magnesium Oxide [Mag-Ox 400] 1,600 mg PO DAILY 01/14/15 Mycophenolate Mofetil [Cellcept] 500 mg PO BID 01/14/15 Pantoprazole Granules [Protonix 40 mg PO DAILY 01/14/15 Granules] Prednisolone 5 mg PO DAILY 01/14/15 Tacrolimus [Astagraf Xl] 1 mg PO BID 01/14/15 Zafirlukast [Accolate] 20 mg PO BID PRN 01/14/15 Hydrocodone Bitartrate [Zohydro ER] 5 mg PO BID PRN PRN 11/16/17 Sulfamethoxazole/Trimethoprim 1 each PO QWEEK 11/16/17 [Sulfamethoxazole-Tmp Ds Tablet] Surgical History: - - Renal and Liver Transplant, L TKR, R TKR, L wrist carpal tunnel release, Hernia repair with mesh, Cholecystectomy. Psychiatric History: No pertinent psych hx Lives: Spouse/ Significant Other Smoking Status: Never smoker Tobacco Use: Non-smoker Alcohol: None Drugs: None - *Family History Maternal History Items: No pertinent history Paternal History Items: No pertinent history Review of Systems Constitutional: Reports: - - complete ROS negative as documented in HPI Patient Problems: Active and Suspected Problems TIA (transient ischemic attack) (Acute) Hypertensive emergency (Acute) - Physical Exam General: - - awake HEENT: Normocephalic Neck: Supple Lungs: Clear to auscultation Cardiovascular: Regular rate Abdomen: Bowel Sounds Present Extremities: No clubbing Skin: No rashes Musculoskeletal: No Tenderness to Palpation of Joints or Extremities Neurological: - - consious, awake, CN 2-12 grossly intact, Power 5/5 all 4 extremities, no sensory loss, no cerebellar signs, Reflexes + B/L B/S/T/K/A, plantars B/L flexors, gait deferred, NIHSS 0 at present. Vital Signs Temp Pulse Resp BP Pulse Ox 98.2 F 79 18 181/92 H 94 11/17/17 09:34 11/17/17 11:11 11/17/17 09:34 11/17/17 12:39 11/17/17 09:34 Oxygen Delivery Method Room Air Weight: 147.2 kg Body Mass Index (BMI) 47.9 Intake and Output for Last 24 Hours 11/15/17 11/16/17 11/17/17 23:59 23:59 23:59 Intake Total 0 / 0 Output Total 350 / 350 Balance 0 / 0 -350 / -350 Laboratory Tests Past 24 Hrs 11/17/17 11/17/17 11/17/17 01:45 05:30 05:30 WBC 6.6 RBC 4.76 Hgb 13.8 Hct 41.9 MCV 88.0 MCH 29.0 MCHC 32.9 RDW 13.6 RDW Differential 44.3 H Plt Count 122 L MPV 10.6 Sodium 141 Potassium 4.0 Chloride 106 Carbon Dioxide 27.0 Anion Gap 8 BUN 23 H Creatinine 1.48 H Estim Creat Clear Calc 49.76 Est GFR (MDRD) Af Amer 61 Est GFR (MDRD) Non-Af 51 L BUN/Creatinine Ratio 15.5 Glucose 147 H Calcium 8.6 Troponin I < 0.02 Triglycerides 211 H Cholesterol 173 LDL Cholesterol 100 VLDL Cholesterol 42 H HDL Cholesterol 31 L 11/17/17 05:30 WBC RBC Hgb Hct MCV MCH MCHC RDW RDW Differential Plt Count MPV Sodium Potassium Chloride Carbon Dioxide Anion Gap BUN Creatinine Estim Creat Clear Calc Est GFR (MDRD) Af Amer Est GFR (MDRD) Non-Af BUN/Creatinine Ratio Glucose Calcium Troponin I < 0.02 Triglycerides Cholesterol LDL Cholesterol VLDL Cholesterol HDL Cholesterol Assessment/Plan Active and Suspected Problems TIA (transient ischemic attack) (Acute) Hypertensive emergency (Acute) The patient is a 66 year old CM with PMH HTN, HLD, ESRD was on HD, S/P renal transplant, s/p liver transplant for NEWELL on Tacrolimus and cellcept, OA, PAUL, morbid obesity admitted with right sided numbness, facial droop and slurred speech and found to have uncontrolled HTN. History is obtained from medical records, patient and his . Per he had some numbness in the right arm about 2 days ago which later resolved, he did not seek any medical attention for the same, then yesterday (11/16/17) he again had right sided numbness and per she noticed facial droop and per documentation also had some slurred speech, that resolved in about 20-30 minutes per documentation and he was brought to the hospital, found to have SBP>200s at admission. His ABCD2 score was 5 on admission. Patient was on ASA at home, has been started on dual AP since admission. Per he had attempted renal artery stenting in 2017 at [facility] [place] but could not tolerate the same. He lives with his , denies any frequent falls, does not use cane or walker to ambulate, does not need any assistance for his ADLs, does drive without any issues. He has been having generalized PICKARD for the past 2 weeks, without photophobia or phonophobia. Denies any new onset focal motor weakness, sensory loss, visual disturbances or speech disturbances. Impression TIA Hypertensive emergency R/O PRES Plan -Recommend MRI brain w/o contrast to r/o stroke and PRES (since the BP is so high and patient is also on Tacrolimus and CellCept) -Recommend MRA head/neck -Recommend increasing ASA to 325 mg once daily. At present patient's BP is very high, going up to SBP 241 mmHg, would avoid dual AP given the increased hemorrhagic risk with such high BP. Per patient his BP usually runs very high even at home and does go into the 200s systolic BP per patient. Will defer better control of HTN to the primary team -Nephrology consult -Recommend Lipitor 40 mg PO q hs -LDL-100, recommend Hba1c -Recommend TTE -Check ESR -Better Bp control after vessel imaging is obtained and hemodynamically significant stenosis/occlusion is ruled out, permissive HTN till then but treat if SBP > 200 mmHg. -GI/DVT prophylaxis -PT/OT -Fall precautions -Follow up with Neurology as outpatient in 2-3 weeks. -Please call with questions if any -Thank you for allowing us to participate in patient's care and management I spent 60 minutes taking history, doing physical examination, reviewing medical records, coordinating care and counseling the patient. Code Visit Inpatient E&M: 62429 Init Hosp L3
[2017-11-17] MEDS: Mycophenolate Mofetil 250 MG Capsule 1000 MG PO ×2 (14:00→22:03)
[2017-11-17] MEDS: Tacrolimus Anhydrous 1 MG Capsule PO ×2 (14:01→22:04)
[2017-11-17] MEDS: 0.45% Normal Saline 1,000 ML 100 ML IV (14:04)
--- NOTE | 2017-11-17 14:05 | PCM.CONS.R ---
Consultation - Renal 11/17/17 PCP/ Referring MD: Requesting physician: Hollie Lovell Primary care physician: Shanelle Luz Reason for Consultation:: Renal/liver transplant, hypertensive emergency - History of Present Illness History of Present Illness: The patient is a 66 y/o obese M w/ PAUL, hx ESRD and liver failure due to NEWELL requiring hemodialysis, paracentesis in the past s/p cadaver kidney and liver transplant in July 2012 at [facility] presents with intractable headache with TIA symptoms and hypertensive emergency with SBP 200's/100's on admit. Currently he is having intractable nausea and vomiting. He has not received his immunosuppressive medications last night or this morning. His states that he had right facial droop with slurred speech with right arm and leg numbness prior to admission. He admits to thumping in his ears with tinnitus. Denied any visual changes. Denied falls. He had vertigo couple weeks ago. His symptoms have resolved. CT Head did not show acute changes, no intracranial bleed. He has a history of renal artery stenosis in 2017 was unable to tolerate the procedure due to poor control of his pain at [facility] therefore was aborted. There has been no follow-up for this. He he has been on amlodipine and losartan at home for hypertension managed by his PCP. He has monthly routine labs done for the [facility] transplant department with his medications managed over the phone by the transplant department with Dr. Small. 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 Baseline creatinine appears to be at 1.2-1.3 and 2015. His is not sure what his renal function has been lately. Creatinine was 1.5 on admit down to 1.48 today. Currently he is receiving IV fluids. Currently blood pressure still running high in the 170-180 systolic. Upon review of [facility] records, his last FK level was 6.6 on 10/31/17. Creatinine had been around 1.2-1.3 since January 2017. Creatinine had been up to 1.55 on October 04 but returned back down to 1.39 on October 31. There was concern from [facility] transplant department about his poorly controlled blood pressures and has suggested repeat evaluation for renal artery stenosis with stenting. However patient was upset about this recommendation. - Allergies Allergies: Allergies morphine Allergy (Intermediate, Verified 12/02/16 13:22) Unknown DID NOT WORK, GOT WORSE metformin Allergy (Verified 12/02/16 13:22) Other pregabalin [From Lyrica] Allergy (Verified 12/02/16 13:22) Other TREMORS - Current Medications Current Medications: Current Medications Acetaminophen (Tylenol) 650 mg PO Q6H PRN PRN PRN Reason: Non-cardiac pain (mod-severe) Al Hydroxide/Mg Hydroxide (Mylanta Ii) 30 ml PO Q6H PRN PRN PRN Reason: Gastric burning Albuterol Sulfate (Ventolin Aerosols) 2.5 mg INHALATION Q2H PRN PRN PRN Reason: dyspnea, wheezing Albuterol/Ipratropium (Duoneb) 3 ml INHALATION Q6HWA.RT [facility] Last Admin: 11/17/17 13:20 Dose: Not Given Amlodipine Besylate (Norvasc) 10 mg PO DAILY [facility] Last Admin: 11/17/17 00:35 Dose: 10 mg Aspirin (Aspirin, Baby) 81 mg PO DAILY@0800 [facility] Carvedilol (Coreg) 25 mg PO BID [facility] Last Admin: 11/17/17 00:35 Dose: 25 mg Clopidogrel Bisulfate (Plavix) 75 mg PO DAILY [facility] Last Admin: 11/17/17 00:35 Dose: 75 mg Docusate Sodium (Colace) 100 mg PO DAILY PRN PRN PRN Reason: CONSTIPATION Heparin Sodium (Porcine) (Heparin Na) 5,000 unit SC BID [facility] Hydralazine HCl (Apresoline) 25 mg PO TID [facility] Hydralazine HCl (Apresoline Iv) 20 mg IV Q4H PRN PRN PRN Reason: SYS>150 DIAST>90 Hydromorphone HCl (Dilaudid Iv) 0.5 mg IV Q4H PRN PRN PRN Reason: SEVERE PAIN (6-10/10) Last Admin: 11/17/17 10:48 Dose: 0.5 mg Sodium Chloride () 1,000 mls @ 100 mls/hr IV .Q10H [facility] Last Admin: 11/17/17 14:04 Dose: 100 mls/hr Losartan Potassium (Cozaar) 50 mg PO BID [facility] Last Admin: 11/17/17 00:35 Dose: 50 mg Magnesium Hydroxide (Milk Of Magnesia) 30 ml PO DAILY PRN PRN Reason: Constipation Magnesium Oxide (Mag-Ox 400) 1,600 mg PO DAILY [facility] Montelukast Sodium (Singulair) 10 mg PO QHS PRN PRN PRN Reason: ASTHMA Mycophenolate Mofetil (Cellcept) 1,000 mg PO BID [facility] Last Admin: 11/17/17 14:00 Dose: 1,000 mg Nystatin (Mycostatin Powder) 1 applic TOPICAL TID ALTAF PRN Reason: Protocol Last Admin: 11/17/17 05:38 Dose: 1 applicatio Ondansetron HCl (Zofran) 4 mg IV Q8H PRN PRN PRN Reason: NAUSEA Last Admin: 11/17/17 01:59 Dose: 4 mg Oxycodone HCl (Oxyir) 5 - 10 mg PO Q4H PRN PRN PRN Reason: SEVERE PAIN (6-10/10) Last Admin: 11/17/17 05:38 Dose: 5 mg Pantoprazole Sodium (Protonix) 40 mg PO DAILY [facility] Prednisolone Sodium Phosphate (Pediapred) 5 mg PO DAILY [facility] Psyllium Hydrophilic Mucilloid (Metamucil) 1 packet PO DAILY PRN PRN PRN Reason: CONSTIPATION Sodium Chloride () 5 - 30 ml IV UD PRN PRN Reason: SALINE FLUSH Last Admin: 11/17/17 12:43 Dose: 10 ml Tacrolimus (Prograf) 1 mg PO BID [facility] Last Admin: 11/17/17 14:01 Dose: 1 mg Trimethoprim/Sulfamethoxazole (Bactrim Ds) 1 tablet PO QWEEK [facility] - Past Medical History Past Medical History (Chronic Problems): Chronic Problems Chronic pain syndrome (Chronic) HTN (hypertension) (Chronic) GERD (gastroesophageal reflux disease) (Chronic) Morbid obesity (Chronic) S/P kidney transplant (Chronic) S/P liver transplant (Chronic) Osteoarthritis (Chronic) Obesity (Chronic) Hyponatremia (Chronic) Hypokalemia (Chronic) Hydronephrosis (Chronic) End stage renal failure on dialysis (Chronic) Cirrhosis of liver (Chronic) Chronic nonalcoholic liver disease (Chronic) Obstructive sleep apnea (Chronic) Hepatic encephalopathy (Chronic) Anasarca (Chronic) Superficial thrombophlebitis (Chronic) Partial small bowel obstruction (Chronic) Anemia (Chronic) - Past Surgical History Surgical History: - - Renal and Liver Transplant, L TKR, R TKR, L wrist carpal tunnel release, Hernia repair with mesh, Cholecystectomy. - Social History Marital Status: Smoking Status: Never smoker Alcohol: None Drugs: None - Family History Maternal Family History: Family History (Last Updated 11/17/17 @ 14:24 by Maria Luisa Kelly DO) Other PGM diabetes History Items: No pertinent history Paternal Family History: Family History (Last Updated 11/17/17 @ 14:24 by Maria Luisa Kelly DO) Other PGM diabetes History Items: Heart Disease, Hypertension Review of Systems Constitutional: Denies: Anorexia, Chills, Fever, Weakness, Fatigue Eyes: Reports: Blurred vision HEENT: Reports: Head Aches, - - tinnitus, - - facial droop Cardiovascular: Denies: Chest Pain, Edema, Syncope Respiratory: Denies: Cough, Shortness of Breath Gastrointestinal: Reports: Nausea, Vomiting, - - liver tx. Denies: Abdominal Pain, Diarrhea Genitourinary: Reports: - - kidney tx. Denies: Dysuria Musculoskeletal: Reports: Back Pain - chronic. Denies: Arm Pain Skin: Reports: -. Denies: Rash Neurological: Reports: Blurred vision, Slurred speech, Headaches, Numbness - rt sided, - - rt facial droop. Denies: Balance problems, Double vision, Tremor, Seizures Hematologic/ Lymphatic: Denies: Anemia Patient Problems: Active and Suspected Problems TIA (transient ischemic attack) (Acute) Hypertensive emergency (Acute) - Physical Exam General: Alert, Oriented x3, - - in discomfort from intractable nausea, vomiting HEENT: PERRLA, EOMI Oral: Moist Mucosa Neck: Supple Lungs: Clear to auscultation, Diminished Cardiovascular: Regular rate Abdomen: Bowel Sounds Present, Soft, Non Tender, Non-Distended, Obese Extremities: Edema Skin: - - hyperpigmentation skin discoloration from venous stasis, chronic edema Musculoskeletal: No Muscle Wasting Lymphatic: No Cervical, Supraclavicular, or Inguinal Adenopathy Neurological: - - no residual s/s Psych/Mental Status: Agitated, - - drowsy Vital Signs Temp Pulse Resp BP Pulse Ox 98.2 F 79 18 181/92 H 94 11/17/17 09:34 11/17/17 11:11 11/17/17 09:34 11/17/17 12:39 11/17/17 09:34 Oxygen Delivery Method Room Air Weight: 147.2 kg Body Mass Index (BMI) 47.9 Intake and Output for Last 24 Hours 11/15/17 11/16/17 11/17/17 23:59 23:59 23:59 Intake Total 0 / 0 Output Total 350 / 350 Balance 0 / 0 -350 / -350 Laboratory Tests Past 24 Hrs 11/17/17 11/17/17 11/17/17 01:45 05:30 05:30 WBC 6.6 RBC 4.76 Hgb 13.8 Hct 41.9 MCV 88.0 MCH 29.0 MCHC 32.9 RDW 13.6 RDW Differential 44.3 H Plt Count 122 L MPV 10.6 Sodium 141 Potassium 4.0 Chloride 106 Carbon Dioxide 27.0 Anion Gap 8 BUN 23 H Creatinine 1.48 H Estim Creat Clear Calc 49.76 Est GFR (MDRD) Af Amer 61 Est GFR (MDRD) Non-Af 51 L BUN/Creatinine Ratio 15.5 Glucose 147 H Calcium 8.6 Troponin I < 0.02 Triglycerides 211 H Cholesterol 173 LDL Cholesterol 100 VLDL Cholesterol 42 H HDL Cholesterol 31 L 11/17/17 05:30 WBC RBC Hgb Hct MCV MCH MCHC RDW RDW Differential Plt Count MPV Sodium Potassium Chloride Carbon Dioxide Anion Gap BUN Creatinine Estim Creat Clear Calc Est GFR (MDRD) Af Amer Est GFR (MDRD) Non-Af BUN/Creatinine Ratio Glucose Calcium Troponin I < 0.02 Triglycerides Cholesterol LDL Cholesterol VLDL Cholesterol HDL Cholesterol Clinical Impression(s) from Imaging Studies Brain CT 11/16/17 21:12 IMPRESSION: Chronic involutional changes of the brain. Small polypoid defect of the posterior left maxillary sinus consistent with a mucoid retention cyst. If acute infarct is clinically suspected, MRI may be helpful for further evaluation at this time. Electronically Signed: Jeffry Conti MD at 22:34 EDT , Service support , Chest X-Ray 11/16/17 21:12 IMPRESSION: Cardiomegaly. Electronically Signed: Jagdish Benito DO at 22:34 EDT Tel [phone], Service support , Brain CT 11/17/17 12:09 IMPRESSION: Chronic involutional changes of the brain. Electronically Signed: Cliff Priest MD at 13:56 EDT Tel [phone], Service support , Assessment/Plan Active and Suspected Problems TIA (transient ischemic attack) (Acute) Hypertensive emergency (Acute) 1. CKD stage 3. History of kidney failure and liver failure from NEWELL s/p cadaveric kidney and liver transplant in July 2012 at [facility]. Currently on CellCept and tacrolimus. Last FK level 6.6 in October 2017. Creatinine baseline appears to be at 1.2-1.3. Creatinine was 1.5 on admission improved down to 1.48 with IV fluids. He has not received his immunosuppressive therapy since last night. He has intractable nausea and vomiting. We may need to place an NG to provide the medication down the NG versus IV therapy if nausea, vomiting persists. Will give iv solumedrol if unable to maintain with oral medications. 2. Hypertensive emergency with TIA symptoms. Neurology consulted. Consider Cardene drip for refractory hypertension. Agree with iv hydralazine, consider iv labetalol or clonidine patch if needed. Patient intolerant to nitro drip causing severe headache. COntinues to have intractable nausea, vomiting. Attempt SBP to 160-180. 3. Intractable nausea, vomiting. Continue with ivf. 4. Hx renal artery stenosis in transplanted kidney on duplex in November 2016 at [facility] s/p failed procedure due to pt inability to hold still for the procedure. Will need to consider renal artery stenting at a later time when his BP is better controlled to avoid potential bleeding complications. 5. Morbid obesity with PAUL DW primary care team, nursing staff, [facility] transplant dept
--- NOTE | 2017-11-17 14:23 | CON.PCM_ITS ---
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 Currently he is having intractable nausea and vomiting. He has not received his immunosuppressive medications last night or this morning. His states that he had right facial droop with slurred speech with right arm and leg numbness prior to admission. He admits to thumping in his ears with tinnitus. Denied any visual changes. Denied falls. He had vertigo couple weeks ago. His symptoms have resolved. CT Head did not show acute changes, no intracranial bleed. He has a history of renal artery stenosis in 2017 was unable to tolerate the procedure due to poor control of his pain at [facility] therefore was aborted. There has been no follow-up for this. He he has been on amlodipine and losartan at home for hypertension managed by his PCP. He has monthly routine labs done for the [facility] transplant department with his medications managed over the phone by the transplant department with Dr. Small. He does not have a agent broker in [facility] that he follows with since his transplant. Baseline creatinine appears to be at 1.2-1.3 and 2015. His is not sure what his renal function has been lately. Creatinine was 1.5 on admit down to 1.48 today. Currently he is receiving IV fluids. Currently blood pressure still running high in the 170- 180 systolic. Upon review of [facility] records, his last FK level was 6.6 on 10/31/17. Creatinine had been around 1.2-1.3 since January 2017. Creatinine had been up to 1.55 on October 04 but returned back down to 1.39 on October 31. There was concern from [facility] transplant department about his poorly controlled blood pressures and has suggested repeat evaluation for renal artery stenosis with stenting. However patient was upset about this recommendation. - Allergies Allergies: Allergies morphine Allergy (Intermediate, Verified 12/02/16 13:22) Unknown DID NOT WORK, GOT WORSE metformin Allergy (Verified 12/02/16 13:22) Other pregabalin [From Lyrica] Allergy (Verified 12/02/16 13:22) Other TREMORS - Current Medications Current Medications: Current Medications Acetaminophen (Tylenol) 650 mg PO Q6H PRN PRN PRN Reason: Non-cardiac pain (mod-severe) Al Hydroxide/Mg Hydroxide (Mylanta Ii) 30 ml PO Q6H PRN PRN PRN Reason: Gastric burning Albuterol Sulfate (Ventolin Aerosols) 2.5 mg INHALATION Q2H PRN PRN PRN Reason: dyspnea, wheezing Albuterol/Ipratropium (Duoneb) 3 ml INHALATION Q6HWA.RT [facility] Last Admin: 11/17/17 13:20 Dose: Not Given Amlodipine Besylate (Norvasc) 10 mg PO DAILY [facility] Last Admin: 11/17/17 00:35 Dose: 10 mg Aspirin (Aspirin, Baby) 81 mg PO DAILY@0800 [facility] Carvedilol (Coreg) 25 mg PO BID [facility] Last Admin: 11/17/17 00:35 Dose: 25 mg Clopidogrel Bisulfate (Plavix) 75 mg PO DAILY [facility] Last Admin: 11/17/17 00:35 Dose: 75 mg Docusate Sodium (Colace) 100 mg PO DAILY PRN PRN PRN Reason: CONSTIPATION Heparin Sodium (Porcine) (Heparin Na) 5,000 unit SC BID [facility] Hydralazine HCl (Apresoline) 25 mg PO TID [facility] Hydralazine HCl (Apresoline Iv) 20 mg IV Q4H PRN PRN PRN Reason: SYS>150 DIAST>90 Hydromorphone HCl (Dilaudid Iv) 0.5 mg IV Q4H PRN PRN PRN Reason: SEVERE PAIN (6-10/10) Last Admin: 11/17/17 10:48 Dose: 0.5 mg Sodium Chloride () 1,000 mls @ 100 mls/hr IV .Q10H [facility] Last Admin: 11/17/17 14:04 Dose: 100 mls/hr Losartan Potassium (Cozaar) 50 mg PO BID [facility] Last Admin: 11/17/17 00:35 Dose: 50 mg Magnesium Hydroxide (Milk Of Magnesia) 30 ml PO DAILY PRN PRN Reason: Constipation Magnesium Oxide (Mag-Ox 400) 1,600 mg PO DAILY [facility] Montelukast Sodium (Singulair) 10 mg PO QHS PRN PRN PRN Reason: ASTHMA Mycophenolate Mofetil (Cellcept) 1,000 mg PO BID [facility] Last Admin: 11/17/17 14:00 Dose: 1,000 mg Nystatin (Mycostatin Powder) 1 applic TOPICAL TID ALTAF PRN Reason: Protocol Last Admin: 11/17/17 05:38 Dose: 1 applicatio Ondansetron HCl (Zofran) 4 mg IV Q8H PRN PRN PRN Reason: NAUSEA Last Admin: 11/17/17 01:59 Dose: 4 mg Oxycodone HCl (Oxyir) 5 - 10 mg PO Q4H PRN PRN PRN Reason: SEVERE PAIN (6-10/10) Last Admin: 11/17/17 05:38 Dose: 5 mg Pantoprazole Sodium (Protonix) 40 mg PO DAILY [facility] Prednisolone Sodium Phosphate (Pediapred) 5 mg PO DAILY [facility] Psyllium Hydrophilic Mucilloid (Metamucil) 1 packet PO DAILY PRN PRN PRN Reason: CONSTIPATION Sodium Chloride () 5 - 30 ml IV UD PRN PRN Reason: SALINE FLUSH Last Admin: 11/17/17 12:43 Dose: 10 ml Tacrolimus (Prograf) 1 mg PO BID [facility] Last Admin: 11/17/17 14:01 Dose: 1 mg Trimethoprim/Sulfamethoxazole (Bactrim Ds) 1 tablet PO QWEEK [facility] - Past Medical History Past Medical History (Chronic Problems): Chronic Problems Chronic pain syndrome (Chronic) HTN (hypertension) (Chronic) GERD (gastroesophageal reflux disease) (Chronic) Morbid obesity (Chronic) S/P kidney transplant (Chronic) S/P liver transplant (Chronic) Osteoarthritis (Chronic) Obesity (Chronic) Hyponatremia (Chronic) Hypokalemia (Chronic) Hydronephrosis (Chronic) End stage renal failure on dialysis (Chronic) Cirrhosis of liver (Chronic) Chronic nonalcoholic liver disease (Chronic) Obstructive sleep apnea (Chronic) Hepatic encephalopathy (Chronic) Anasarca (Chronic) Superficial thrombophlebitis (Chronic) Partial small bowel obstruction (Chronic) Anemia (Chronic) - Past Surgical History Surgical History: - - Renal and Liver Transplant, L TKR, R TKR, L wrist carpal tunnel release, Hernia repair with mesh, Cholecystectomy. - Social History Marital Status: Smoking Status: Never smoker Alcohol: None Drugs: None - Family History Maternal Family History: Family History (Last Updated 11/17/17 @ 14:24 by Maria Luisa Kelly DO) Other PGM diabetes History Items: No pertinent history Paternal Family History: Family History (Last Updated 11/17/17 @ 14:24 by Maria Luisa Kelly DO) Other PGM diabetes History Items: Heart Disease, Hypertension Review of Systems Constitutional: Denies: Anorexia, Chills, Fever, Weakness, Fatigue Eyes: Reports: Blurred vision HEENT: Reports: Head Aches, - - tinnitus, - - facial droop Cardiovascular: Denies: Chest Pain, Edema, Syncope Respiratory: Denies: Cough, Shortness of Breath Gastrointestinal: Reports: Nausea, Vomiting, - - liver tx. Denies: Abdominal Pain, Diarrhea Genitourinary: Reports: - - kidney tx. Denies: Dysuria Musculoskeletal: Reports: Back Pain - chronic. Denies: Arm Pain Skin: Reports: -. Denies: Rash Neurological: Reports: Blurred vision, Slurred speech, Headaches, Numbness - rt sided, - - rt facial droop. Denies: Balance problems, Double vision, Tremor, Seizures Hematologic/ Lymphatic: Denies: Anemia Patient Problems: Active and Suspected Problems TIA (transient ischemic attack) (Acute) Hypertensive emergency (Acute) - Physical Exam General: Alert, Oriented x3, - - in discomfort from intractable nausea, vomiting HEENT: PERRLA, EOMI Oral: Moist Mucosa Neck: Supple Lungs: Clear to auscultation, Diminished Cardiovascular: Regular rate Abdomen: Bowel Sounds Present, Soft, Non Tender, Non-Distended, Obese Extremities: Edema Skin: - - hyperpigmentation skin discoloration from venous stasis, chronic edema Musculoskeletal: No Muscle Wasting Lymphatic: No Cervical, Supraclavicular, or Inguinal Adenopathy Neurological: - - no residual s/s Psych/Mental Status: Agitated, - - drowsy Vital Signs Temp Pulse Resp BP Pulse Ox 98.2 F 79 18 181/92 H 94 11/17/17 09:34 11/17/17 11:11 11/17/17 09:34 11/17/17 12:39 11/17/17 09:34 Oxygen Delivery Method Room Air Weight: 147.2 kg Body Mass Index (BMI) 47.9 Intake and Output for Last 24 Hours 11/15/17 11/16/17 11/17/17 23:59 23:59 23:59 Intake Total 0 / 0 Output Total 350 / 350 Balance 0 / 0 -350 / -350 Laboratory Tests Past 24 Hrs 11/17/17 11/17/17 11/17/17 01:45 05:30 05:30 WBC 6.6 RBC 4.76 Hgb 13.8 Hct 41.9 MCV 88.0 MCH 29.0 MCHC 32.9 RDW 13.6 RDW Differential 44.3 H Plt Count 122 L MPV 10.6 Sodium 141 Potassium 4.0 Chloride 106 Carbon Dioxide 27.0 Anion Gap 8 BUN 23 H Creatinine 1.48 H Estim Creat Clear Calc 49.76 Est GFR (MDRD) Af Amer 61 Est GFR (MDRD) Non-Af 51 L BUN/Creatinine Ratio 15.5 Glucose 147 H Calcium 8.6 Troponin I < 0.02 Triglycerides 211 H Cholesterol 173 LDL Cholesterol 100 VLDL Cholesterol 42 H HDL Cholesterol 31 L 11/17/17 05:30 WBC RBC Hgb Hct MCV MCH MCHC RDW RDW Differential Plt Count MPV Sodium Potassium Chloride Carbon Dioxide Anion Gap BUN Creatinine Estim Creat Clear Calc Est GFR (MDRD) Af Amer Est GFR (MDRD) Non-Af BUN/Creatinine Ratio Glucose Calcium Troponin I < 0.02 Triglycerides Cholesterol LDL Cholesterol VLDL Cholesterol HDL Cholesterol Clinical Impression(s) from Imaging Studies Brain CT 11/16/17 21:12 IMPRESSION: Chronic involutional changes of the brain. Small polypoid defect of the posterior left maxillary sinus consistent with a mucoid retention cyst. If acute infarct is clinically suspected, MRI may be helpful for further evaluation at this time. Electronically Signed: Jeffry Conti MD at 22:34 EDT , Service support , Chest X-Ray 11/16/17 21:12 IMPRESSION: Cardiomegaly. Electronically Signed: Jagdish Benito DO at 22:34 EDT Tel [phone], Service support , Brain CT 11/17/17 12:09 IMPRESSION: Chronic involutional changes of the brain. Electronically Signed: Cliff Priest MD at 13:56 EDT Tel [phone], Service support , Assessment/Plan Active and Suspected Problems TIA (transient ischemic attack) (Acute) Hypertensive emergency (Acute) 1. CKD stage 3. History of kidney failure and liver failure from NEWELL s/p cadaveric kidney and liver transplant in July 2012 at [facility]. Currently on CellCept and tacrolimus. Last FK level 6.6 in October 2017. Creatinine baseline appears to be at 1.2-1.3. Creatinine was 1.5 on admission improved down to 1.48 with IV fluids. He has not received his immunosuppressive therapy since last night. He has intractable nausea and vomiting. We may need to place an NG to provide the medication down the NG versus IV therapy if nausea, vomiting persists. Will give iv solumedrol if unable to maintain with oral medications. 2. Hypertensive emergency with TIA symptoms. Neurology consulted. Consider Cardene drip for refractory hypertension. Agree with iv hydralazine, consider iv labetalol or clonidine patch if needed. Patient intolerant to nitro drip causing severe headache. COntinues to have intractable nausea, vomiting. Attempt SBP to 160-180. 3. Intractable nausea, vomiting. Continue with ivf. 4. Hx renal artery stenosis in transplanted kidney on duplex in November 2016 at [facility] s/p failed procedure due to pt inability to hold still for the procedure. Will need to consider renal artery stenting at a later time when his BP is better controlled to avoid potential bleeding complications. 5. Morbid obesity with PAUL DW primary care team, nursing staff, [facility] transplant dept
--- NOTE | 2017-11-17 16:41 | CASEMGMT ---
Face to Face with patient for initial transition planning/care coordination assessment. JESSICA BREWER introduced self and role at [facility], voices understanding and consents to assessment at this time. Pt is sleeping in bed in no distress at this time. answers all questions at this time. Care providers, pharmacy, and demographics verified. See attached link. Pt voices no further concerns/needs at this time. Advised pt to ask for CM if any further questions/concerns/needs arise, voices understanding. PLAN: TBD SStdanni LOPEZ CM
[2017-11-17] MEDS: Pantoprazole Sodium 40 MG Tablet PO (22:04)
[2017-11-17] MEDS: hydrALAZINE 25 MG Tablet PO (22:05)
[2017-11-18] VITALS (21 sets, daily range): BP systolic 145–177; BP diastolic 70–105; PULSE 62–83; RESP 16–18; TEMP 36.1–37.7; O2SAT 91–98; BMI 47.9
[2017-11-18] MEDS: 0.45% Normal Saline 1,000 ML 100 ML IV (04:17)
[2017-11-18] MEDS: hydrALAZINE 25 MG Tablet PO ×2 (05:50→22:14)
[2017-11-18] MEDS: Nystatin Powder 15gm Bottle 1 APPLIC TOPICAL ×3 (05:55→22:17)
[2017-11-18 06:53] LABS: Albumin, Serum 2.7 g/dL (3.2-5.0); BUN 18 mg/dL (7-18); BUN/Creat Ratio 15.4 RATIO (10-20); Calcium,Total 6.8 mg/dL (8.5-10.1); Chloride 101 mmol/L (98-107); Creatinine, Serum 1.17 mg/dL (0.70-1.30); EST Glomerular Filtration Rate 66 mL/min (>60); Est Glom Filt Rate - Afr Amer 80 mL/min (>60); Estimated Creatinine Clearance 62.95 ml/min; Glucose 120 mg/dL (74-106); Phosphorus 2.9 mg/dL (2.5-4.9); Potassium 3.5 mmol/L (3.5-5.1); Sodium Level 130 mmol/L (136-145)
[2017-11-18] MEDS: oxyCODONE 5 MG Tablet PO (07:06)
--- NOTE | 2017-11-18 09:35 | PCM.PROGNOTE ---
Patient Problems: Active and Suspected Problems TIA (transient ischemic attack) (Acute) Hypertensive emergency (Acute) Subjective: TMAX: Afebrile since admission Vital signs: Blood pressures are labile. Blood pressure at 10 PM was 201/107 but this morning at 07 100 was 151/86. Fluid balance: +613 since admission. Urine output: Urine output on 11/17/2017 was 925 cc an overnight he had an additional 225. Weight: No weight today. Weight on 11/17/2018 was 324 pounds and 8.3 ounces. All radiologic testing was reviewed: MRI of the brain showed white matter changes and involutional changes but no acute infarct, MRA was negative. KUB showed no evidence of ileus, obstruction or free intraperitoneal air. All labs were personally reviewed: Sodium today is down to 130 and the BUN is 18 with a creatinine of 1.17. Calcium is 6.8 and the albumin is 2.7 so the corrected serum calcium is 7.84 which is low. Phosphorus is normal at 2.9. Telemetry: Normal sinus rhythm/sinus bradycardia-especially when sleeping, no significant ectopy and no cardiac dysrhythmia. Objective: N/V finally stopped at about 1400 yesterday after Dilaudid discontinued and he was made NPO except meds but he took OxyIR on an empty stomach this AM and he had an emesis. He tells me the last time he had a sleep study was 10 years ago. He has BiPAP at home. He used to weigh in excess of 360 pounds but then lost weight down to 199 pounds and now his weight is back up to over 324 pounds. He thinks his BiPAP settings are 11/7. I suspect these settings are not adequate and likely need to be higher. He will need a repeat PSG following DC.......the headaches in the AM I suspect are due to CO2 retention while sleeping. No abdominal pain today and denies CP or SOB. - Physical Exam General: Alert, Oriented x3, Cooperative, No apparent distress HEENT: PERRLA, EOMI Oral: Moist Mucosa Lungs: Clear to auscultation - anterior and lateral Cardiovascular: Regular Rhythm, Normal S1, Normal S2, No rub noted, No Gallop, - - He gets fairly bradycardic when sleeping. Abdomen: Bowel Sounds Present, Soft, Non Tender, Non-Distended Extremities: No clubbing, No cyanosis, No edema Skin: No rashes, No breakdown Musculoskeletal: No Muscle Wasting Neurological: Cranial nerves II-XII grossly intact, Neuro grossly intact Psych/Mental Status: Normal Affect, Appropriate Vital Signs Temp Pulse Resp BP Pulse Ox 98.9 F 64 16 151/86 H 95 11/18/17 07:00 11/18/17 07:00 11/18/17 07:00 11/18/17 07:00 11/18/17 09:06 Oxygen Flow Rate (L/min) 2 Oxygen Delivery Method Room Air Weight: 324 lb 8.327 oz Body Mass Index (BMI) 47.9 Intake and Output for Last 24 Hours 11/16/17 11/17/17 11/18/17 23:59 23:59 23:59 Intake Total 0 / 0 1510 / 1510 953 / 953 Output Total 1625 / 1625 225 / 225 Balance 0 / 0 -115 / -115 728 / 728 Laboratory Tests Past 24 Hrs 11/18/17 06:10 Sodium 130 L Potassium 3.5 Chloride 101 Carbon Dioxide 21.0 BUN 18 Creatinine 1.17 Estim Creat Clear Calc 62.95 Est GFR (MDRD) Af Amer 80 Est GFR (MDRD) Non-Af 66 BUN/Creatinine Ratio 15.4 Glucose 120 H Calcium 6.8 L Phosphorus 2.9 Albumin 2.7 L Medical Necessity - Tobacco Use Smoking Status: Never smoker Tobacco Use: Non-smoker Assessment/Plan Active and Suspected Problems TIA (transient ischemic attack) (Acute) Hypertensive emergency (Acute) Impressions 1. Hypertensive emergency with TIA 2. Renal artery stenosis (of the transplanted kidney) - aborted attempt at stent - due to too much gas to visualize the artery.....this is generally an OP procedure. can be rescheduled at [facility] following DC from [facility] 3. N/V/cephalgia -possibly related to overnight nitroglycerin infusion, but it persists and seems to be related to narcotics. May also be related to AM cephalgia which I suspect is due to CO2 retention at night from Inadequate BIPAP pressures. Mucous membranes are dry and I suspect he has intravascular volume depletion and this is contributing to the PICKARD also. 4. Chronic renal failure-stage III, with history of renal transplant. Creatinine has improved with hydration and improved blood pressure control and today is 1.17 with a BUN of 18. 5. History of NEWELL with liver transplant. 6. Morbid obesity 7. Osteoarthritis 8. Chronic pain syndrome 9. GERD 10. dehydration 11. HLD - controlled 12. thrombocytopenia 13. Hyponatremia 14. Hypocalcemia with a normal phosphorus Change the IV fluid to NS Continue IVF's until he is able to start a diet and maintain good hydration DC Narcotics and if no N/V will start clears at noon Adjust the antihypertensives with goal BP of less than 140/85 for now recheck the lab in the AM LDL is 100 and will need to tweak the statins. Follow up in the pulmonary office within 2 weeks post DC to get PFT's and a PSG ordered Supplement the calcium check Vitamin D levels If the BP's remain increased throughout the day will increase the Hydralazine to [address] Kelly's and Dr. Lyles's input. Follow up at [facility] post DC for another attempt at the transplanted kidney Renal A stenosis -consider Mylicon TID for 48 hours prior to the scheduled procedure and a low residue diet. Code Visit Inpatient E&M: 70621 Subs Hosp L2
[2017-11-18] MEDS: 0.9% Normal Saline 1,000 ML 125 ML IV ×2 (09:50→21:00)
--- NOTE | 2017-11-18 10:00 | NURSING ---
Patient offered flu vaccine. Patient declines at this time and states Let's wait until I feel better. Patient complains of headache with nausea.
[2017-11-18] MEDS: hydrALAZINE 20 MG/ML Vial IV ×2 (10:43→18:07)
--- NOTE | 2017-11-18 10:44 | PCM.PN.REN ---
Patient Problems: Active and Suspected Problems TIA (transient ischemic attack) (Acute) Hypertensive emergency (Acute) Subjective: Renal function improved with IV fluids. Maintaining on oral immunosuppressive therapy. Blood pressure control improved. Still with headaches with nausea. No further vomiting since yesterday. - Physical Exam General: Alert, Oriented x3, Cooperative, - - Nauseous Lungs: Clear to auscultation Cardiovascular: Regular rate Abdomen: Bowel Sounds Present, Soft, Non Tender, Non-Distended, Hypoactive Bowel Sounds, Obese Extremities: Edema - Mild bilateral lower extremities, Peripheral Pulses Normal Skin: No rashes Musculoskeletal: No Muscle Wasting Neurological: Cranial nerves II-XII grossly intact Psych/Mental Status: Normal Affect, Appropriate, Alert and oriented to time, place, person, mood and affect Vital Signs Temp Pulse Resp BP Pulse Ox 98.4 F 63 18 159/104 H 95 11/18/17 09:37 11/18/17 09:37 11/18/17 09:37 11/18/17 09:37 11/18/17 09:37 Oxygen Flow Rate (L/min) 2 Oxygen Delivery Method Nasal Cannula Weight: 147.2 kg Body Mass Index (BMI) 47.9 Intake and Output for Last 24 Hours 11/16/17 11/17/17 11/18/17 23:59 23:59 23:59 Intake Total 0 / 0 1510 / 1510 953 / 953 Output Total 1625 / 1625 225 / 225 Balance 0 / 0 -115 / -115 728 / 728 Laboratory Tests Past 24 Hrs 11/18/17 06:10 Sodium 130 L Potassium 3.5 Chloride 101 Carbon Dioxide 21.0 BUN 18 Creatinine 1.17 Estim Creat Clear Calc 62.95 Est GFR (MDRD) Af Amer 80 Est GFR (MDRD) Non-Af 66 BUN/Creatinine Ratio 15.4 Glucose 120 H Calcium 6.8 L Phosphorus 2.9 Albumin 2.7 L Medical Necessity - Tobacco Use Smoking Status: Never smoker Tobacco Use: Non-smoker Assessment/Plan Active and Suspected Problems TIA (transient ischemic attack) (Acute) Hypertensive emergency (Acute) 1. CKD stage 3 with renal function at baseline creatinine 1.17 today. History of kidney failure and liver failure from NEWELL s/p cadaveric kidney and liver transplant in July 2012 at [facility]. Continue po CellCept and tacrolimus. Last FK level 6.6 in October 2017. 2. Hypertensive emergency with TIA symptoms. BP better controlled on oral therapy. 3. Intractable nausea, vomiting. Continue with ivf. 4. Hx renal artery stenosis in transplanted kidney on duplex in November 2016 at [facility] s/p failed procedure due to pt inability to hold still for the procedure. Will need to consider renal artery stent when medically stable 5. Morbid obesity with APUL 6. Hyponatremia. Will stop hypotonic saline. DW primary care team
--- NOTE | 2017-11-18 10:47 | PN.RENAL_ITS ---
Patient Problems: Active and Suspected Problems TIA (transient ischemic attack) (Acute) Hypertensive emergency (Acute) Subjective: Renal function improved with IV fluids. Maintaining on oral immunosuppressive therapy. Blood pressure control improved. Still with headaches with nausea. No further vomiting since yesterday. - Physical Exam General: Alert, Oriented x3, Cooperative, - - Nauseous Lungs: Clear to auscultation Cardiovascular: Regular rate Abdomen: Bowel Sounds Present, Soft, Non Tender, Non-Distended, Hypoactive Bowel Sounds, Obese Extremities: Edema - Mild bilateral lower extremities, Peripheral Pulses Normal Skin: No rashes Musculoskeletal: No Muscle Wasting Neurological: Cranial nerves II-XII grossly intact Psych/Mental Status: Normal Affect, Appropriate, Alert and oriented to time, place, person, mood and affect Vital Signs Temp Pulse Resp BP Pulse Ox 98.4 F 63 18 159/104 H 95 11/18/17 09:37 11/18/17 09:37 11/18/17 09:37 11/18/17 09:37 11/18/17 09:37 Oxygen Flow Rate (L/min) 2 Oxygen Delivery Method Nasal Cannula Weight: 147.2 kg Body Mass Index (BMI) 47.9 Intake and Output for Last 24 Hours 11/16/17 11/17/17 11/18/17 23:59 23:59 23:59 Intake Total 0 / 0 1510 / 1510 953 / 953 Output Total 1625 / 1625 225 / 225 Balance 0 / 0 -115 / -115 728 / 728 Laboratory Tests Past 24 Hrs 11/18/17 06:10 Sodium 130 L Potassium 3.5 Chloride 101 Carbon Dioxide 21.0 BUN 18 Creatinine 1.17 Estim Creat Clear Calc 62.95 Est GFR (MDRD) Af Amer 80 Est GFR (MDRD) Non-Af 66 BUN/Creatinine Ratio 15.4 Glucose 120 H Calcium 6.8 L Phosphorus 2.9 Albumin 2.7 L Medical Necessity - Tobacco Use Smoking Status: Never smoker Tobacco Use: Non-smoker Assessment/Plan Active and Suspected Problems TIA (transient ischemic attack) (Acute) Hypertensive emergency (Acute) 1. CKD stage 3 with renal function at baseline creatinine 1.17 today. History of kidney failure and liver failure from NEWELL s/p cadaveric kidney and liver transplant in July 2012 at [facility]. Continue po CellCept and tacrolimus. Last FK level 6.6 in October 2017. 2. Hypertensive emergency with TIA symptoms. BP better controlled on oral therapy. 3. Intractable nausea, vomiting. Continue with ivf. 4. Hx renal artery stenosis in transplanted kidney on duplex in November 2016 at [facility] s/p failed procedure due to pt inability to hold still for the procedure. Will need to consider renal artery stent when medically stable 5. Morbid obesity with PAUL 6. Hyponatremia. Will stop hypotonic saline. DW primary care team
--- NOTE | 2017-11-18 11:03 | BH.SGPN.T2 ---
Pt. complains of Headache and nausea. Hydralazine IV given; pt. Family in pt. room while he is resting with eyes closed; no further needs requested. Primary RN notified. SN Raquel
--- NOTE | 2017-11-18 11:38 | BH.SGPN.T2 ---
Pt. still complaining of nausea and headache, primary care RN called pharmacy for Zofran, no further needs requested. SN Raquel
--- NOTE | 2017-11-18 14:01 | CPS ---
Patient refusing respiratory interventions.
[2017-11-18 14:17] LABS: Hemoglobin A1c 5.9 % (4.2-6.3)
[2017-11-18 14:33] LABS: Albumin, Serum 3.7 g/dL (3.2-5.0); BUN 22 mg/dL (7-18); BUN/Creat Ratio 15.6 RATIO (10-20); Calcium,Total 8.4 mg/dL (8.5-10.1); Chloride 106 mmol/L (98-107); Creatinine, Serum 1.41 mg/dL (0.70-1.30); EST Glomerular Filtration Rate 54 mL/min (>60); Est Glom Filt Rate - Afr Amer 65 mL/min (>60); Estimated Creatinine Clearance 52.23 ml/min; Glucose 148 mg/dL (74-106); Potassium 4.3 mmol/L (3.5-5.1); Sodium Level 140 mmol/L (136-145)
[2017-11-18] MEDS: Acetaminophen 325 MG Tablet 650 MG PO (14:56)
[2017-11-18] MEDS: Tacrolimus Anhydrous 1 MG Capsule PO ×2 (14:57→22:16)
[2017-11-18] MEDS: Mycophenolate Mofetil 250 MG Capsule 1000 MG PO ×2 (14:58→22:15)
[2017-11-18] MEDS: Calcium (Elemental) 500 MG Tablet PO (18:00)
--- NOTE | 2017-11-18 18:23 | NURSING ---
Patient left hand edematous immediately after receiving IV Hydralazine. Patient denies pain to same. NO redness noted. Updated Dr. Lovell of same. No new orders.
[2017-11-18] MEDS: 0.9% NaCl Peripheral Flush Adult/Peds IV (19:40)
[2017-11-18] MEDS: Losartan Potassium 50 MG Tablet PO (22:15)
[2017-11-18] MEDS: Carvedilol 25 MG Tablet PO (22:16)
[2017-11-19] VITALS (18 sets, daily range): BP systolic 144–187; BP diastolic 87–101; PULSE 64–95; RESP 16–18; TEMP 36.8–37.7; O2SAT 94–96; BMI 47.9
[2017-11-19] MEDS: 0.9% Normal Saline 1,000 ML 125 ML IV ×3 (04:04→21:39)
[2017-11-19] MEDS: Labetalol 100 MG/20 ML Vial 20 MG IV (04:06)
[2017-11-19 05:58] LABS: Hematocrit 40.6 % (40-54); Hemoglobin 13.8 g/dl (13.0-16.5); Mean Corpuscular Hgb 29.9 pg (27.0-32.0); Mean Corpuscular Volume 88.1 fL (80-94); Mean Platelet Vol. 11.1 fl (6.2-12.0); Platelet Count 142 K/mm3 (150-450); RBC Distribution Width CV 13.4 % (11.6-14.6); Red Blood Count 4.61 M/mm3 (4.6-6.2); White Blood Count 7.8 K/mm3 (4.4-11.0)
[2017-11-19 06:00] LABS: Scan Indicated on CBC? Y/N NO
[2017-11-19] MEDS: hydrALAZINE 25 MG Tablet PO ×2 (06:00→10:11)
[2017-11-19 06:10] LABS: ALB/GLOB Ratio 1.2 RATIO (0.9-2.4); AST(SGOT) 37 U/L (15-37); Alanine Aminotransfer ALT/SGPT 124 U/L (16-61); Albumin, Serum 3.2 g/dL (3.2-5.0); Alkaline Phosphatase 56 U/L (45-117); Anion Gap 8 (5-15); BUN 20 mg/dL (7-18); BUN/Creat Ratio 14.6 RATIO (10-20); Calcium,Total 8.5 mg/dL (8.5-10.1); Chloride 105 mmol/L (98-107); Creatinine, Serum 1.37 mg/dL (0.70-1.30); EST Glomerular Filtration Rate 55 mL/min (>60); Est Glom Filt Rate - Afr Amer 67 mL/min (>60); Estimated Creatinine Clearance 53.76 ml/min; Globulin 2.7 g/dL (2.2-4.2); Glucose 137 mg/dL (74-106); Potassium 4.2 mmol/L (3.5-5.1); Protein, Total 5.9 g/dL (6.4-8.2); Sodium Level 137 mmol/L (136-145)
[2017-11-19] MEDS: hydrALAZINE 20 MG/ML Vial IV (07:00)
[2017-11-19 07:25] LABS: Allen Test POS; Base Excess -3 mmol/L (-2 to +2); Bicarbonate 22.2 mmol/L (22-26); Blood Gas Specimen Type ART; PO2 69 mmHG (75-100); SITE R Brachial; SO2 94 % (95-99); Time Given 715; Total Carbon Dioxide 23 mmol/L; pCO2 36.2 mmHg (35-45)
[2017-11-19] MEDS: Aspirin 81 MG TAB.CHEW PO (10:12)
[2017-11-19] MEDS: amLODIPine 10 MG Tablet PO (10:12)
[2017-11-19] MEDS: Calcium (Elemental) 500 MG Tablet PO ×2 (10:12→17:34)
[2017-11-19] MEDS: Magnesium Oxide 400 MG Tablet 1600 MG PO (10:13)
[2017-11-19] MEDS: Mycophenolate Mofetil 250 MG Capsule 1000 MG PO ×2 (10:13→21:38)
[2017-11-19] MEDS: Tacrolimus Anhydrous 1 MG Capsule PO ×2 (10:14→21:38)
[2017-11-19] MEDS: Acetaminophen 325 MG Tablet 650 MG PO (10:15)
[2017-11-19] MEDS: Carvedilol 25 MG Tablet PO ×2 (12:19→21:38)
[2017-11-19] MEDS: Losartan Potassium 50 MG Tablet PO ×2 (12:19→21:38)
[2017-11-19 13:26] LABS: 24HR UR TOTAL VOLUME 1350 ml; Calcium Urine pH Range 1; Urine Calcium (Random) 7.7 (Not Estab.)
[2017-11-19] MEDS: hydrALAZINE 25 MG Tablet 50 MG PO ×2 (14:57→21:38)
[2017-11-19] MEDS: Nystatin Powder 15gm Bottle 1 APPLIC TOPICAL (15:12)
--- NOTE | 2017-11-19 22:44 | PCM.PROGNOTE ---
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 CTB showed no acute findings. MRI showed no CVA. MRA of the head showed no significant areas of stenosis. MRA of the neck was not done because his back hurt. BP at admission was 222/111. He has renal artery stenosis and had an aborted attempt at placement of a renal artery stent at the [facility] main campus....he had pain and so the procedure was halted. He did not call to reschedule. Developed N/V/PICKARD after admission......vomiting occurs after narcotics. He is admitted for BP control. He is tolerating oral antihypertensives today...BP is coming down. No CP and co SOB. Follows no diet at home and does not exercise. He was down to 199 at one time but has not been able to control his intake and his weight at admission was 324. - Physical Exam General: Alert, Oriented x3, Cooperative, No apparent distress HEENT: Atraumatic, PERRLA, EOMI Oral: Moist Mucosa Neck: Supple, - - thick short neck Lungs: Clear to auscultation, No rhonchi, No wheeze, No rales, Diminished Cardiovascular: Regular rate, Regular Rhythm, Normal S1, Normal S2, No rub noted, No Gallop, - - distant heart sounds Abdomen: Soft, Non Tender, Non-Distended, Obese Extremities: No cyanosis, No edema, No Calf Tenderness, Peripheral Pulses Normal Neurological: Cranial nerves II-XII grossly intact, Neuro grossly intact Psych/Mental Status: Normal Affect, Appropriate Vital Signs Temp Pulse Resp BP Pulse Ox 98.3 F 75 16 174/89 H 96 11/19/17 21:04 11/19/17 21:38 11/19/17 21:04 11/19/17 21:04 11/19/17 21:04 Oxygen Flow Rate (L/min) 2 Oxygen Delivery Method Room Air Weight: 324 lb 8.327 oz Body Mass Index (BMI) 47.9 Intake and Output for Last 24 Hours 03/16/18 03/17/18 03/18/18 23:59 23:59 23:59 Intake Total 1510 / 1510 2187.7 / 2187.7 2560 / 2560 Output Total 1625 / 1625 1245 / 1245 1720 / 1720 Balance -115 / -115 942.7 / 942.7 840 / 840 Laboratory Tests Past 24 Hrs 11/19/17 11/19/17 11/19/17 05:40 05:40 07:19 WBC 7.8 RBC 4.61 Hgb 13.8 Hct 40.6 MCV 88.1 MCH 29.9 MCHC 34.0 RDW 13.4 RDW Differential 43.0 Plt Count 142 L MPV 11.1 Specimen Type ART Sample Site R Brachial pH 7.40 Bicarbonate Actual 22.2 POC Total CO2 23 Base Excess -3 L O2 Saturation 94 L ABG pCO2 36.2 ABG pO2 69 L Zeke Test POS O2 Delivery Device Bi / C PAP Blood Gas Notified Whom [facility] MD Blood Gas Notified Time 715 Sodium 137 Potassium 4.2 Chloride 105 Carbon Dioxide 24.0 Anion Gap 8 BUN 20 H Creatinine 1.37 H Estim Creat Clear Calc 53.76 Est GFR (MDRD) Af Amer 67 Est GFR (MDRD) Non-Af 55 L BUN/Creatinine Ratio 14.6 Glucose 137 H Calcium 8.5 Total Bilirubin 1.30 H AST 37 ALT 124 H Alkaline Phosphatase 56 Total Protein 5.9 L Albumin 3.2 Globulin 2.7 Albumin/Globulin Ratio 1.2 Urine pH Urine Collection Time Urine Total Volume Urine Calcium Ur Calcium 24 Hr 11/19/17 12:00 WBC RBC Hgb Hct MCV MCH MCHC RDW RDW Differential Plt Count MPV Specimen Type Sample Site pH Bicarbonate Actual POC Total CO2 Base Excess O2 Saturation ABG pCO2 ABG pO2 Ezke Test O2 Delivery Device Blood Gas Notified Whom Blood Gas Notified Time Sodium Potassium Chloride Carbon Dioxide Anion Gap BUN Creatinine Estim Creat Clear Calc Est GFR (MDRD) Af Amer Est GFR (MDRD) Non-Af BUN/Creatinine Ratio Glucose Calcium Total Bilirubin AST ALT Alkaline Phosphatase Total Protein Albumin Globulin Albumin/Globulin Ratio Urine pH 1 Urine Collection Time 24.0 Urine Total Volume 1350 Urine Calcium 7.7 Ur Calcium 24 Hr 104.0 Medical Necessity - Tobacco Use Smoking Status: Never smoker Tobacco Use: Non-smoker Assessment/Plan Active and Suspected Problems TIA (transient ischemic attack) (Acute) Hypertensive emergency (Acute) Impressions 1. Hypertensive emergency with TIA - MRI negtive and no significant stenosis on the MRA of the head 2. Renal artery stenosis (of the transplanted kidney) - aborted attempt at stent - due to pt having back and abdominal pain and he stopped the procedure and then never followed up to reschedule....this is generally an OP procedure. Can be rescheduled at [facility] following DC from [facility] 3. N/V/cephalgia - suspect due to narcotics and possible gastroenteritis.....The PICKARD is chronic and I suspect is related to inadequate pressures on the BIPAP machine and sleep deprivation 4. Chronic renal failure-stage III, with history of renal transplant. Creatinine has improved with hydration and improved blood pressure control and today is 1.17 with a BUN of 18. 5. History of NEWELL with liver transplant. 6. Morbid obesity 7. Osteoarthritis 8. Chronic pain syndrome 9. GERD 10. dehydration 11. HLD - controlled 12. thrombocytopenia 13. Hyponatremia 14. Hypocalcemia with a normal phosphorus Increased the hydralazine to 50 mg TID this AM. Continue the Coreg 25 BID, Cozaar 50 mg BID and the norvasc 10 mg daily. BP was still high at HS so added Hytrin 2 mg at HS. discussed the part that untreated sleep apnea plays in depression, chronic pain, restless leg, HTn etc. I also explained that addictions are common. He is willing to try Effexor to help with chronic pain, depression and assistance with weight control. will start at a very low dose and not increase until the BP is adequately controlled. His family was in the room when we discussed this. I also recommended he consider follow up with the office service coordinator's in the [facility] program. DC when the BP is adequately controlled and have him follow up with a [facility] for a renal artery stent and with Dr. Kelly. Code Visit Inpatient E&M: 30693 Subs Hosp L2
--- NOTE | 2017-11-19 22:54 | PN_ITS ---
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 CTB showed no acute findings. MRI showed no CVA. MRA of the head showed no significant areas of stenosis. MRA of the neck was not done because his back hurt. BP at admission was 222/111. He has renal artery stenosis and had an aborted attempt at placement of a renal artery stent at the [facility] main campus....he had pain and so the procedure was halted. He did not call to reschedule. Developed N/V/PICKARD after admission......vomiting occurs after narcotics. He is admitted for BP control. He is tolerating oral antihypertensives today...BP is coming down. No CP and co SOB. Follows no diet at home and does not exercise. He was down to 199 at one time but has not been able to control his intake and his weight at admission was 324. - Physical Exam General: Alert, Oriented x3, Cooperative, No apparent distress HEENT: Atraumatic, PERRLA, EOMI Oral: Moist Mucosa Neck: Supple, - - thick short neck Lungs: Clear to auscultation, No rhonchi, No wheeze, No rales, Diminished Cardiovascular: Regular rate, Regular Rhythm, Normal S1, Normal S2, No rub noted , No Gallop, - - distant heart sounds Abdomen: Soft, Non Tender, Non-Distended, Obese Extremities: No cyanosis, No edema, No Calf Tenderness, Peripheral Pulses Normal Neurological: Cranial nerves II-XII grossly intact, Neuro grossly intact Psych/Mental Status: Normal Affect, Appropriate Vital Signs Temp Pulse Resp BP Pulse Ox 98.3 F 75 16 174/89 H 96 11/19/17 21:04 11/19/17 21:38 11/19/17 21:04 11/19/17 21:04 11/19/17 21:04 Oxygen Flow Rate (L/min) 2 Oxygen Delivery Method Room Air Weight: 324 lb 8.327 oz Body Mass Index (BMI) 47.9 Intake and Output for Last 24 Hours 03/16/18 03/17/18 03/18/18 23:59 23:59 23:59 Intake Total 1510 / 1510 2187.7 / 2187.7 2560 / 2560 Output Total 1625 / 1625 1245 / 1245 1720 / 1720 Balance -115 / -115 942.7 / 942.7 840 / 840 Laboratory Tests Past 24 Hrs 11/19/17 11/19/17 11/19/17 05:40 05:40 07:19 WBC 7.8 RBC 4.61 Hgb 13.8 Hct 40.6 MCV 88.1 MCH 29.9 MCHC 34.0 RDW 13.4 RDW Differential 43.0 Plt Count 142 L MPV 11.1 Specimen Type ART Sample Site R Brachial pH 7.40 Bicarbonate Actual 22.2 POC Total CO2 23 Base Excess -3 L O2 Saturation 94 L ABG pCO2 36.2 ABG pO2 69 L Zeke Test POS O2 Delivery Device Bi / C PAP Blood Gas Notified Whom [facility] MD Blood Gas Notified Time 715 Sodium 137 Potassium 4.2 Chloride 105 Carbon Dioxide 24.0 Anion Gap 8 BUN 20 H Creatinine 1.37 H Estim Creat Clear Calc 53.76 Est GFR (MDRD) Af Amer 67 Est GFR (MDRD) Non-Af 55 L BUN/Creatinine Ratio 14.6 Glucose 137 H Calcium 8.5 Total Bilirubin 1.30 H AST 37 ALT 124 H Alkaline Phosphatase 56 Total Protein 5.9 L Albumin 3.2 Globulin 2.7 Albumin/Globulin Ratio 1.2 Urine pH Urine Collection Time Urine Total Volume Urine Calcium Ur Calcium 24 Hr 11/19/17 12:00 WBC RBC Hgb Hct MCV MCH MCHC RDW RDW Differential Plt Count MPV Specimen Type Sample Site pH Bicarbonate Actual POC Total CO2 Base Excess O2 Saturation ABG pCO2 ABG pO2 Zeke Test O2 Delivery Device Blood Gas Notified Whom Blood Gas Notified Time Sodium Potassium Chloride Carbon Dioxide Anion Gap BUN Creatinine Estim Creat Clear Calc Est GFR (MDRD) Af Amer Est GFR (MDRD) Non-Af BUN/Creatinine Ratio Glucose Calcium Total Bilirubin AST ALT Alkaline Phosphatase Total Protein Albumin Globulin Albumin/Globulin Ratio Urine pH 1 Urine Collection Time 24.0 Urine Total Volume 1350 Urine Calcium 7.7 Ur Calcium 24 Hr 104.0 Medical Necessity - Tobacco Use Smoking Status: Never smoker Tobacco Use: Non-smoker Assessment/Plan Active and Suspected Problems TIA (transient ischemic attack) (Acute) Hypertensive emergency (Acute) Impressions 1. Hypertensive emergency with TIA - MRI negtive and no significant stenosis on the MRA of the head 2. Renal artery stenosis (of the transplanted kidney) - aborted attempt at stent - due to pt having back and abdominal pain and he stopped the procedure and then never followed up to reschedule....this is generally an OP procedure. Can be rescheduled at [facility] following DC from [facility] 3. N/V/cephalgia - suspect due to narcotics and possible gastroenteritis.....The PICKARD is chronic and I suspect is related to inadequate pressures on the BIPAP machine and sleep deprivation 4. Chronic renal failure-stage III, with history of renal transplant. Creatinine has improved with hydration and improved blood pressure control and today is 1.17 with a BUN of 18. 5. History of NEWELL with liver transplant. 6. Morbid obesity 7. Osteoarthritis 8. Chronic pain syndrome 9. GERD 10. dehydration 11. HLD - controlled 12. thrombocytopenia 13. Hyponatremia 14. Hypocalcemia with a normal phosphorus Increased the hydralazine to 50 mg TID this AM. Continue the Coreg 25 BID, Cozaar 50 mg BID and the norvasc 10 mg daily. BP was still high at HS so added Hytrin 2 mg at HS. discussed the part that untreated sleep apnea plays in depression, chronic pain , restless leg, HTn etc. I also explained that addictions are common. He is willing to try Effexor to help with chronic pain, depression and assistance with weight control. will start at a very low dose and not increase until the BP is adequately controlled. His family was in the room when we discussed this. I also recommended he consider follow up with the staffing program manager's in the [facility]. DC when the BP is adequately controlled and have him follow up with a [facility] for a renal artery stent and with Dr. Kelly. Code Visit Inpatient E&M: [id number] Subs Hosp L2
[2017-11-19] MEDS: Doxazosin 1 MG Tablet 2 MG PO (23:04)
[2017-11-19] MEDS: 0.9% Normal Saline 1,000 ML 60 ML IV (23:05)
[2017-11-20] VITALS (19 sets, daily range): BP systolic 159–192; BP diastolic 84–103; PULSE 60–68; RESP 16–22; TEMP 36.8–37.6; O2SAT 91–95; BMI 47.9
[2017-11-20] MEDS: hydrALAZINE 20 MG/ML Vial IV ×2 (03:01→12:18)
[2017-11-20] MEDS: Acetaminophen 325 MG Tablet 650 MG PO ×3 (03:45→15:55)
[2017-11-20 06:00] LABS: Hematocrit 40.5 % (40-54); Hemoglobin 13.8 g/dl (13.0-16.5); Mean Corp Hgb Conc 34.1 g/gl (32-36); Mean Corpuscular Hgb 29.8 pg (27.0-32.0); Mean Corpuscular Volume 87.5 fL (80-94); Mean Platelet Vol. 10.6 fl (6.2-12.0); Platelet Count 133 K/mm3 (150-450); RBC Distribution Width CV 13.5 % (11.6-14.6); RBC Distribution Width SD 42.3 fl (35.1-43.9); Red Blood Count 4.63 M/mm3 (4.6-6.2); White Blood Count 6.7 K/mm3 (4.4-11.0)
[2017-11-20 06:04] LABS: Scan Indicated on CBC? Y/N NO
[2017-11-20] MEDS: Nystatin Powder 15gm Bottle 1 APPLIC TOPICAL ×3 (06:31→22:03)
[2017-11-20] MEDS: hydrALAZINE 25 MG Tablet 50 MG PO (06:32)
[2017-11-20 06:39] LABS: BUN 17 mg/dL (7-18); Creatinine, Serum 1.29 mg/dL (0.70-1.30); Glucose 141 mg/dL (74-106)
[2017-11-20 06:40] LABS: ALB/GLOB Ratio 1.3 RATIO (0.9-2.4); AST(SGOT) 51 U/L (15-37); Alanine Aminotransfer ALT/SGPT 123 U/L (16-61); Albumin, Serum 3.3 g/dL (3.2-5.0); Alkaline Phosphatase 51 U/L (45-117); Anion Gap 9 (5-15); BUN/Creat Ratio 13.2 RATIO (10-20); Calcium,Total 8.8 mg/dL (8.5-10.1); Chloride 106 mmol/L (98-107); EST Glomerular Filtration Rate 59 mL/min (>60); Est Glom Filt Rate - Afr Amer 72 mL/min (>60); Estimated Creatinine Clearance 57.09 ml/min; Globulin 2.5 g/dL (2.2-4.2); Potassium 3.8 mmol/L (3.5-5.1); Protein, Total 5.8 g/dL (6.4-8.2); Sodium Level 140 mmol/L (136-145)
[2017-11-20] MEDS: 0.9% Normal Saline 1,000 ML 60 ML IV (08:09)
[2017-11-20] MEDS: Calcium (Elemental) 500 MG Tablet PO ×2 (08:10→16:00)
[2017-11-20] MEDS: Aspirin 81 MG TAB.CHEW PO (08:10)
[2017-11-20] MEDS: Mycophenolate Mofetil 250 MG Capsule 1000 MG PO (09:32)
[2017-11-20] MEDS: Magnesium Oxide 400 MG Tablet 1600 MG PO (09:32)
[2017-11-20] MEDS: Losartan Potassium 50 MG Tablet PO ×2 (09:32→21:51)
[2017-11-20] MEDS: Venlafaxine XR 75 MG Capsule PO (09:32)
[2017-11-20] MEDS: amLODIPine 10 MG Tablet PO (09:32)
[2017-11-20] MEDS: Carvedilol 25 MG Tablet PO ×2 (09:32→21:50)
[2017-11-20] MEDS: Tacrolimus Anhydrous 1 MG Capsule PO ×2 (09:32→21:53)
[2017-11-20 09:57] LABS: Vitamin D,25 Hydroxy 12.9 ng/mL (29.95-100.01)
[2017-11-20 10:06] LABS: PTHIN 135.8 pg/mL (18.4-80.1)
[2017-11-20] MEDS: Albuterol 2.5 MG/3 ML VIAL.NEB. INHALATION ×2 (11:24→20:35)
--- NOTE | 2017-11-20 11:50 | PCM.PN.REN ---
Patient Problems: Active and Suspected Problems TIA (transient ischemic attack) (Acute) Hypertensive emergency (Acute) Subjective: Complains of a headache and nausea after drinking OJ this morning. BP labile 140-180 systolic. 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 Had mildly elevated ALT at [facility]. Hx fatty liver. Not on statins. - Physical Exam General: Alert, Oriented x3, Cooperative, No apparent distress Neck: Supple Lungs: Clear to auscultation Cardiovascular: Regular rate Abdomen: Bowel Sounds Present, Soft, Non Tender, Non-Distended, Obese Extremities: No edema Skin: No rashes Musculoskeletal: No Muscle Wasting Neurological: Cranial nerves II-XII grossly intact Psych/Mental Status: Normal Affect, Alert and oriented to time, place, person, mood and affect Vital Signs Temp Pulse Resp BP Pulse Ox 98.2 F 68 16 177/92 H 91 11/20/17 07:37 11/20/17 11:24 11/20/17 11:24 11/20/17 07:37 11/20/17 08:30 Oxygen Flow Rate (L/min) 2 Oxygen Delivery Method Room Air Weight: 147.4 kg Body Mass Index (BMI) 47.9 Intake and Output for Last 24 Hours 11/18/17 11/19/17 11/20/17 23:59 23:59 23:59 Intake Total 2187.7 / 2187.7 3361 / 3361 544 / 544 Output Total 1245 / 1245 2470 / 2470 775 / 775 Balance 942.7 / 942.7 891 / 891 -231 / -231 Laboratory Tests Past 24 Hrs 11/18/17 11/18/17 11/19/17 13:50 13:50 12:00 WBC RBC Hgb Hct MCV MCH MCHC RDW RDW Differential Plt Count MPV Sodium Potassium Chloride Carbon Dioxide Anion Gap BUN Creatinine Estim Creat Clear Calc Est GFR (MDRD) Af Amer Est GFR (MDRD) Non-Af BUN/Creatinine Ratio Glucose Calcium Total Bilirubin AST ALT Alkaline Phosphatase Total Protein Albumin Globulin Albumin/Globulin Ratio Vitamin D 25-Hydroxy 12.9 L PTH Intact 135.8 H Urine pH 1 Urine Collection Time 24.0 Urine Total Volume 1350 Urine Calcium 7.7 Ur Calcium 24 Hr 104.0 11/20/17 11/20/17 05:45 05:45 WBC 6.7 RBC 4.63 Hgb 13.8 Hct 40.5 MCV 87.5 MCH 29.8 MCHC 34.1 RDW 13.5 RDW Differential 42.3 Plt Count 133 L MPV 10.6 Sodium 140 Potassium 3.8 Chloride 106 Carbon Dioxide 25.0 Anion Gap 9 BUN 17 Creatinine 1.29 Estim Creat Clear Calc 57.09 Est GFR (MDRD) Af Amer 72 Est GFR (MDRD) Non-Af 59 L BUN/Creatinine Ratio 13.2 Glucose 141 H Calcium 8.8 Total Bilirubin 1.10 H AST 51 H ALT 123 H Alkaline Phosphatase 51 Total Protein 5.8 L Albumin 3.3 Globulin 2.5 Albumin/Globulin Ratio 1.3 Vitamin D 25-Hydroxy PTH Intact Urine pH Urine Collection Time Urine Total Volume Urine Calcium Ur Calcium 24 Hr Medical Necessity - Tobacco Use Smoking Status: Never smoker Tobacco Use: Non-smoker Assessment/Plan Active and Suspected Problems TIA (transient ischemic attack) (Acute) Hypertensive emergency (Acute) 1. CKD stage 3 with renal function at baseline creatinine 2. kidney failure and liver failure from NEWELL with incidental HCC s/p cadaveric kidney and liver transplant in July 2012 at [facility]. tbili/ALT mildly elevated with hx fatty liver. Currently not on statin. Continue po CellCept and tacrolimus. Last FK level 6.6 in October 2017. 3. TIA will need carotid US 4. Hypertensive emergency. BP remains labile.Adjust medications 5. Intractable nausea, vomiting. Improved. 6. Hx renal artery stenosis in transplanted kidney on duplex in November 2016 at [facility] s/p failed procedure due to pain. Will need to reevaulate as outpt for renal artery stent at [facility] 7. Morbid obesity with PAUL on CPAP 8. Hyponatremia resolved. DW primary care team
--- NOTE | 2017-11-20 11:57 | PN.RENAL_ITS ---
Patient Problems: Active and Suspected Problems TIA (transient ischemic attack) (Acute) Hypertensive emergency (Acute) Subjective: Complains of a headache and nausea after drinking OJ this morning. BP labile 140 -180 systolic. 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 Had mildly elevated ALT at [facility]. Hx fatty liver. Not on statins. - Physical Exam General: Alert, Oriented x3, Cooperative, No apparent distress Neck: Supple Lungs: Clear to auscultation Cardiovascular: Regular rate Abdomen: Bowel Sounds Present, Soft, Non Tender, Non-Distended, Obese Extremities: No edema Skin: No rashes Musculoskeletal: No Muscle Wasting Neurological: Cranial nerves II-XII grossly intact Psych/Mental Status: Normal Affect, Alert and oriented to time, place, person, mood and affect Vital Signs Temp Pulse Resp BP Pulse Ox 98.2 F 68 16 177/92 H 91 11/20/17 07:37 11/20/17 11:24 11/20/17 11:24 11/20/17 07:37 11/20/17 08:30 Oxygen Flow Rate (L/min) 2 Oxygen Delivery Method Room Air Weight: 147.4 kg Body Mass Index (BMI) 47.9 Intake and Output for Last 24 Hours 11/18/17 11/19/17 11/20/17 23:59 23:59 23:59 Intake Total 2187.7 / 2187.7 3361 / 3361 544 / 544 Output Total 1245 / 1245 2470 / 2470 775 / 775 Balance 942.7 / 942.7 891 / 891 -231 / -231 Laboratory Tests Past 24 Hrs 11/18/17 11/18/17 11/19/17 13:50 13:50 12:00 WBC RBC Hgb Hct MCV MCH MCHC RDW RDW Differential Plt Count MPV Sodium Potassium Chloride Carbon Dioxide Anion Gap BUN Creatinine Estim Creat Clear Calc Est GFR (MDRD) Af Amer Est GFR (MDRD) Non-Af BUN/Creatinine Ratio Glucose Calcium Total Bilirubin AST ALT Alkaline Phosphatase Total Protein Albumin Globulin Albumin/Globulin Ratio Vitamin D 25-Hydroxy 12.9 L PTH Intact 135.8 H Urine pH 1 Urine Collection Time 24.0 Urine Total Volume 1350 Urine Calcium 7.7 Ur Calcium 24 Hr 104.0 11/20/17 11/20/17 05:45 05:45 WBC 6.7 RBC 4.63 Hgb 13.8 Hct 40.5 MCV 87.5 MCH 29.8 MCHC 34.1 RDW 13.5 RDW Differential 42.3 Plt Count 133 L MPV 10.6 Sodium 140 Potassium 3.8 Chloride 106 Carbon Dioxide 25.0 Anion Gap 9 BUN 17 Creatinine 1.29 Estim Creat Clear Calc 57.09 Est GFR (MDRD) Af Amer 72 Est GFR (MDRD) Non-Af 59 L BUN/Creatinine Ratio 13.2 Glucose 141 H Calcium 8.8 Total Bilirubin 1.10 H AST 51 H ALT 123 H Alkaline Phosphatase 51 Total Protein 5.8 L Albumin 3.3 Globulin 2.5 Albumin/Globulin Ratio 1.3 Vitamin D 25-Hydroxy PTH Intact Urine pH Urine Collection Time Urine Total Volume Urine Calcium Ur Calcium 24 Hr Medical Necessity - Tobacco Use Smoking Status: Never smoker Tobacco Use: Non-smoker Assessment/Plan Active and Suspected Problems TIA (transient ischemic attack) (Acute) Hypertensive emergency (Acute) 1. CKD stage 3 with renal function at baseline creatinine 2. kidney failure and liver failure from NEWELL with incidental HCC s/p cadaveric kidney and liver transplant in July 2012 at [facility]. tbili/ALT mildly elevated with hx fatty liver. Currently not on statin. Continue po CellCept and tacrolimus. Last FK level 6.6 in October 2017. 3. TIA will need carotid US 4. Hypertensive emergency. BP remains labile.Adjust medications 5. Intractable nausea, vomiting. Improved. 6. Hx renal artery stenosis in transplanted kidney on duplex in November 2016 at [facility] s/p failed procedure due to pain. Will need to reevaulate as outpt for renal artery stent at [facility] 7. Morbid obesity with PAUL on CPAP 8. Hyponatremia resolved. DW primary care team
--- NOTE | 2017-11-20 16:51 | PCM.PN.HOSP ---
Patient Problems: Active and Suspected Problems TIA (transient ischemic attack) (Acute) Hypertensive emergency (Acute) Subjective: Patient was seen and examined. He complains of headaches and nausea with hydralazine. Blood pressures are not controlled. Objective: Physical Exam General: Alert, Oriented x3, Cooperative, No apparent distress, hard of hearing, obese Neck: Supple Lungs: Clear to auscultation Cardiovascular: Regular rate Abdomen: Bowel Sounds Present, Soft, Non Tender, Non-Distended, Obese Extremities: No edema Skin: No rashes Musculoskeletal: No Muscle Wasting Neurological: Cranial nerves II-XII grossly intact Psych/Mental Status: Normal Affect, Alert and oriented to time, place, person, mood and affect Vitals/I&O's: Vital Signs Temp Pulse Resp BP Pulse Ox 98.9 F 61 22 H 164/84 H 95 11/20/17 14:58 11/20/17 15:07 11/20/17 14:58 11/20/17 14:58 11/20/17 14:58 Oxygen Flow Rate (L/min) 2 Oxygen Delivery Method Room Air Weight: 147.4 kg Body Mass Index (BMI) 47.9 Intake and Output for Last 24 Hours 11/18/17 11/19/17 11/20/17 23:59 23:59 23:59 Intake Total 2187.7 / 2187.7 3361 / 3361 1249 / 1249 Output Total 1245 / 1245 2470 / 2470 1175 / 1175 Balance 942.7 / 942.7 891 / 891 74 / 74 Laboratory Results 11/18/17 13:50: Vitamin D 25-Hydroxy 12.9 L 11/18/17 13:50: PTH Intact 135.8 H 11/20/17 05:45: WBC 6.7, RBC 4.63, Hgb 13.8, Hct 40.5, MCV 87.5, MCH 29.8, MCHC 34.1, RDW 13.5, RDW Differential 42.3, Plt Count 133 L, MPV 10.6 11/20/17 05:45: Sodium 140, Potassium 3.8, Chloride 106, Carbon Dioxide 25.0, Anion Gap 9, BUN 17, Creatinine 1.29, Estim Creat Clear Calc 57.09, Est GFR (MDRD) Af Amer 72, Est GFR (MDRD) Non-Af 59 L, BUN/Creatinine Ratio 13.2, Glucose 141 H, Calcium 8.8, Total Bilirubin 1.10 H, AST 51 H, ALT 123 H, Alkaline Phosphatase 51, Total Protein 5.8 L, Albumin 3.3, Globulin 2.5, Albumin/Globulin Ratio 1.3 Current Medications Acetaminophen (Tylenol) 650 mg PO Q6H PRN PRN PRN Reason: Non-cardiac pain (mod-severe) Last Admin: 11/20/17 15:55 Dose: 650 mg Al Hydroxide/Mg Hydroxide (Mylanta Ii) 30 ml PO Q6H PRN PRN PRN Reason: Gastric burning Albuterol Sulfate (Ventolin Aerosols) 2.5 mg INHALATION Q2H PRN PRN PRN Reason: dyspnea, wheezing Last Admin: 11/20/17 11:24 Dose: 2.5 mg Amlodipine Besylate (Norvasc) 10 mg PO DAILY [facility] Last Admin: 11/20/17 09:32 Dose: 10 mg Aspirin (Aspirin, Baby) 81 mg PO DAILY@0800 [facility] Last Admin: 11/20/17 08:10 Dose: 81 mg Calcium Carbonate ([facility]-Gabino 500) [facility] Last Admin: 11/20/17 16:00 Dose: 500 mg Carvedilol (Coreg) 25 mg PO BID [facility] Last Admin: 11/20/17 09:32 Dose: 25 mg Docusate Sodium (Colace) 100 mg PO DAILY PRN PRN PRN Reason: CONSTIPATION Doxazosin Mesylate (Cardura) 4 mg PO QHS [facility] Heparin Sodium (Porcine) (Heparin Na) 5,000 unit SC BID [facility] Last Admin: 11/20/17 09:40 Dose: 5,000 units Hydralazine HCl (Apresoline Iv) 20 mg IV Q4H PRN PRN PRN Reason: SYS>150 DIAST>90 Last Admin: 11/20/17 12:18 Dose: 20 mg Ondansetron HCl 8 mg/ Sodium (Chloride) 54 mls @ 216 mls/hr IV Q6H PRN PRN Reason: NAUSEA Last Admin: 11/18/17 12:51 Dose: 216 mls/hr Pantoprazole Sodium 40 mg/ (Sodium Chloride) 110 mls @ 330 mls/hr IV Q12 [facility] Last Admin: 11/20/17 09:32 Dose: 330 mls/hr Labetalol HCl (Trandate) 20 mg IV Q4H PRN PRN PRN Reason: sys>150 BAIRD>85 Last Admin: 11/19/17 04:06 Dose: 20 mg Losartan Potassium (Cozaar) 50 mg PO BID [facility] Last Admin: 11/20/17 09:32 Dose: 50 mg Magnesium Hydroxide (Milk Of Magnesia) 30 ml PO DAILY PRN PRN Reason: Constipation Magnesium Oxide (Mag-Ox 400) 1,600 mg PO DAILY [facility] Last Admin: 11/20/17 09:32 Dose: 1,600 mg Montelukast Sodium (Singulair) 10 mg PO QHS PRN PRN PRN Reason: ASTHMA Mycophenolate Mofetil (Cellcept) 500 mg PO BID [facility] Nystatin (Mycostatin Powder) 1 applic TOPICAL TID [facility] PRN Reason: Protocol Last Admin: 11/20/17 14:38 Dose: 1 applicatio Oxycodone HCl (Oxyir) 5 - 10 mg PO Q4H PRN PRN PRN Reason: SEVERE PAIN (6-10/10) Last Admin: 11/18/17 07:06 Dose: 10 mg Prednisolone Sodium Phosphate (Pediapred) [facility] Last Admin: 11/20/17 08:10 Dose: 5 mg Psyllium Hydrophilic Mucilloid (Metamucil) 1 packet PO DAILY PRN PRN PRN Reason: CONSTIPATION Sodium Chloride () 5 - 30 ml IV UD PRN PRN Reason: SALINE FLUSH Last Admin: 11/18/17 19:40 Dose: 5 ml Tacrolimus (Prograf) 1 mg PO BID [facility] Last Admin: 11/20/17 09:32 Dose: 1 mg Trimethoprim/Sulfamethoxazole (Bactrim Ds) 1 tablet PO QWEEK [facility] Medical Necessity - Tobacco Use Smoking Status: Never smoker Tobacco Use: Non-smoker Assessment/Plan Active and Suspected Problems TIA (transient ischemic attack) (Acute) Hypertensive emergency (Acute) 66y/o male with multiple co-morbidities admitted on 09/08/2017 with right-sided paresthesia, facial droop secondary to TIA. Patient has history of renal artery stenosis, and blood pressure has been difficult to control in the hospital. 1. Accelerated hypertension/hypertensive emergency, BP is not controlled, dismayed to medication, patient says he has headaches with hydralazine, would increase to Zosyn to 4 mg nightly, 2 with the other BP medications and continue to monitor his blood pressure 2. Renal artery stenosis(of the transplanted kidney), neurology consulted, needs to follow-up in the outpatient 3. Nausea, vomiting, headaches likely related to blood pressure, will treat symptomatically and monitor 4. CKD stage 3, s/p renal transplant, creatinine looks stable, nephrology following 5. NEWELL status post liver transplant 6. Morbid obesity 7. Rest of multiple comorbidities are all stable 8. DVT PPx - Heparin SC Code Visit Inpatient E&M: 61967 Subs Hosp L2
--- NOTE | 2017-11-20 16:54 | PN_ITS ---
Patient Problems: Active and Suspected Problems TIA (transient ischemic attack) (Acute) Hypertensive emergency (Acute) Subjective: Patient was seen and examined. He complains of headaches and nausea with hydralazine. Blood pressures are not controlled. Objective: Physical Exam General: Alert, Oriented x3, Cooperative, No apparent distress, hard of hearing , obese Neck: Supple Lungs: Clear to auscultation Cardiovascular: Regular rate Abdomen: Bowel Sounds Present, Soft, Non Tender, Non-Distended, Obese Extremities: No edema Skin: No rashes Musculoskeletal: No Muscle Wasting Neurological: Cranial nerves II-XII grossly intact Psych/Mental Status: Normal Affect, Alert and oriented to time, place, person, mood and affect Vitals/I&O's: Vital Signs Temp Pulse Resp BP Pulse Ox 98.9 F 61 22 H 164/84 H 95 11/20/17 14:58 11/20/17 15:07 11/20/17 14:58 11/20/17 14:58 11/20/17 14:58 Oxygen Flow Rate (L/min) 2 Oxygen Delivery Method Room Air Weight: 147.4 kg Body Mass Index (BMI) 47.9 Intake and Output for Last 24 Hours 11/18/17 11/19/17 11/20/17 23:59 23:59 23:59 Intake Total 2187.7 / 2187.7 3361 / 3361 1249 / 1249 Output Total 1245 / 1245 2470 / 2470 1175 / 1175 Balance 942.7 / 942.7 891 / 891 74 / 74 Laboratory Results 11/18/17 13:50: Vitamin D 25-Hydroxy 12.9 L 11/18/17 13:50: PTH Intact 135.8 H 11/20/17 05:45: WBC 6.7, RBC 4.63, Hgb 13.8, Hct 40.5, MCV 87.5, MCH 29.8, MCHC 34.1, RDW 13.5, RDW Differential 42.3, Plt Count 133 L, MPV 10.6 11/20/17 05:45: Sodium 140, Potassium 3.8, Chloride 106, Carbon Dioxide 25.0, Anion Gap 9, BUN 17, Creatinine 1.29, Estim Creat Clear Calc 57.09, Est GFR ( MDRD) Af Amer 72, Est GFR (MDRD) Non-Af 59 L, BUN/Creatinine Ratio 13.2, Glucose 141 H, Calcium 8.8, Total Bilirubin 1.10 H, AST 51 H, ALT 123 H, Alkaline Phosphatase 51, Total Protein 5.8 L, Albumin 3.3, Globulin 2.5, Albumin /Globulin Ratio 1.3 Current Medications Acetaminophen (Tylenol) 650 mg PO Q6H PRN PRN PRN Reason: Non-cardiac pain (mod-severe) Last Admin: 11/20/17 15:55 Dose: 650 mg Al Hydroxide/Mg Hydroxide (Mylanta Ii) 30 ml PO Q6H PRN PRN PRN Reason: Gastric burning Albuterol Sulfate (Ventolin Aerosols) 2.5 mg INHALATION Q2H PRN PRN PRN Reason: dyspnea, wheezing Last Admin: 11/20/17 11:24 Dose: 2.5 mg Amlodipine Besylate (Norvasc) 10 mg PO DAILY [facility] Last Admin: 11/20/17 09:32 Dose: 10 mg Aspirin (Aspirin, Baby) 81 mg PO DAILY@0800 [facility] Last Admin: 11/20/17 08:10 Dose: 81 mg [facility] ([facility]Gabino 500) [facility] Last Admin: 11/20/17 16:00 Dose: 500 mg Carvedilol (Coreg) 25 mg PO BID [facility] Last Admin: 11/20/17 09:32 Dose: 25 mg Docusate Sodium (Colace) 100 mg PO DAILY PRN PRN PRN Reason: CONSTIPATION Doxazosin Mesylate (Cardura) 4 mg PO QHS [facility] Heparin Sodium (Porcine) (Heparin Na) 5,000 unit SC BID [facility] Last Admin: 11/20/17 09:40 Dose: 5,000 units Hydralazine HCl (Apresoline Iv) 20 mg IV Q4H PRN PRN PRN Reason: SYS>150 DIAST>90 Last Admin: 11/20/17 12:18 Dose: 20 mg Ondansetron HCl 8 mg/ Sodium (Chloride) 54 mls @ 216 mls/hr IV Q6H PRN PRN Reason: NAUSEA Last Admin: 11/18/17 12:51 Dose: 216 mls/hr Pantoprazole Sodium 40 mg/ (Sodium Chloride) 110 mls @ 330 mls/hr IV Q12 [facility] Last Admin: 11/20/17 09:32 Dose: 330 mls/hr Labetalol HCl (Trandate) 20 mg IV Q4H PRN PRN PRN Reason: sys>150 BAIRD>85 Last Admin: 11/19/17 04:06 Dose: 20 mg Losartan Potassium (Cozaar) 50 mg PO BID [facility] Last Admin: 11/20/17 09:32 Dose: 50 mg Magnesium Hydroxide (Milk Of Magnesia) 30 ml PO DAILY PRN PRN Reason: Constipation Magnesium Oxide (Mag-Ox 400) 1,600 mg PO DAILY [facility] Last Admin: 11/20/17 09:32 Dose: 1,600 mg Montelukast Sodium (Singulair) 10 mg PO QHS PRN PRN PRN Reason: ASTHMA Mycophenolate Mofetil (Cellcept) 500 mg PO BID [facility] Nystatin (Mycostatin Powder) 1 applic TOPICAL TID [facility] PRN Reason: Protocol Last Admin: 11/20/17 14:38 Dose: 1 applicatio Oxycodone HCl (Oxyir) 5 - 10 mg PO Q4H PRN PRN PRN Reason: SEVERE PAIN (6-10/10) Last Admin: 11/18/17 07:06 Dose: 10 mg Prednisolone Sodium Phosph[facility] ([facility]red) [facility] Last Admin: 11/20/17 08:10 Dose: 5 mg Psyllium Hydrophilic Mucilloid (Metamucil) 1 packet PO DAILY PRN PRN PRN Reason: CONSTIPATION Sodium Chloride () 5 - 30 ml IV UD PRN PRN Reason: SALINE FLUSH Last Admin: 11/18/17 19:40 Dose: 5 ml Tacrolimus (Prograf) 1 mg PO BID [facility] Last Admin: 11/20/17 09:32 Dose: 1 mg Trimethoprim/Sulfamethoxazole (Bactrim Ds) 1 tablet PO QWEEK [facility] Medical Necessity - Tobacco Use Smoking Status: Never smoker Tobacco Use: Non-smoker Assessment/Plan Active and Suspected Problems TIA (transient ischemic attack) (Acute) Hypertensive emergency (Acute) 66y/o male with multiple co-morbidities admitted on 09/08/2017 with right-sided paresthesia, facial droop secondary to TIA. Patient has history of renal artery stenosis, and blood pressure has been difficult to control in the hospital. 1. Accelerated hypertension/hypertensive emergency, BP is not controlled, dismayed to medication, patient says he has headaches with hydralazine, would increase to Zosyn to 4 mg nightly, 2 with the other BP medications and continue to monitor his blood pressure 2. Renal artery stenosis(of the transplanted kidney), neurology consulted, needs to follow-up in the outpatient 3. Nausea, vomiting, headaches likely related to blood pressure, will treat symptomatically and monitor 4. CKD stage 3, s/p renal transplant, creatinine looks stable, nephrology following 5. NEWELL status post liver transplant 6. Morbid obesity 7. Rest of multiple comorbidities are all stable 8. DVT PPx - Heparin SC Code Visit Inpatient E&M: 58242 Subs Hosp L2
[2017-11-20] MEDS: Doxazosin 4 MG Tablet PO (21:50)
[2017-11-21] VITALS (8 sets, daily range): BP systolic 151–181; BP diastolic 83–97; PULSE 58–62; RESP 16–20; TEMP 36.6–37.5; O2SAT 92–96; BMI 47.9
[2017-11-21] MEDS: Nystatin Powder 15gm Bottle 1 APPLIC TOPICAL ×2 (05:46→13:20)
[2017-11-21] MEDS: Losartan Potassium 50 MG Tablet PO (05:57)
[2017-11-21] MEDS: amLODIPine 10 MG Tablet PO (05:57)
[2017-11-21] MEDS: 0.9% NaCl Peripheral Flush Adult/Peds IV ×2 (05:59→09:08)
[2017-11-21] MEDS: Mycophenolate Mofetil 250 MG Capsule 500 MG PO (09:06)
[2017-11-21] MEDS: Aspirin 81 MG TAB.CHEW PO (09:06)
[2017-11-21] MEDS: Calcium (Elemental) 500 MG Tablet PO (09:06)
[2017-11-21] MEDS: Tacrolimus Anhydrous 1 MG Capsule PO (09:06)
[2017-11-21] MEDS: Magnesium Oxide 400 MG Tablet 1600 MG PO (09:07)
[2017-11-21] MEDS: Carvedilol 25 MG Tablet PO (09:07)
--- NOTE | 2017-11-21 09:42 | PCM.DC ---
- Discharge Diagnoses Current Active Problems: Current Active and Chronic Problems Chronic pain syndrome (Chronic) HTN (hypertension) (Chronic) GERD (gastroesophageal reflux disease) (Chronic) Morbid obesity (Chronic) S/P kidney transplant (Chronic) S/P liver transplant (Chronic) TIA (transient ischemic attack) (Acute) Hypertensive emergency (Acute) Reason(s) for Visit for Discharge Instructions: Right paresthesias, facial droop You will use the following diet at home:: Cardiac, Renal (restricted protein/sodium) Your food should be the consistency of: Regular Your liquids should be the consistency of: Regular/Thin Discharge Activity: Return to Normal Activity Additional Instructions: Please take note of all your current medications. Be careful not to mixold prescriptions with the new prescription. Stick to the current blood pressure regimen. Take your blood pressure every day and keep a log of it. 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 You are strongly advised to follow-up with the [facility] for further evaluation and surgery of your renal artery stenosis. Allergies/Adverse Reactions: Allergies morphine Allergy (Intermediate, Verified 12/02/16 13:22) Unknown DID NOT WORK, GOT WORSE metformin Allergy (Verified 12/02/16 13:22) Other pregabalin [From Lyrica] Allergy (Verified 12/02/16 13:22) Other TREMORS Medications to take at Discharge Carvedilol [Coreg (Beta Gee)] 25 mg PO BID 01/14/15 Docusate 100 mg PO PRN PRN 01/14/15 Magnesium Oxide [Mag-Ox 400] 1,600 mg PO DAILY 01/14/15 Mycophenolate Mofetil [Cellcept] 500 mg PO BID 01/14/15 Pantoprazole Granules [Protonix Granules for Suspension] 40 mg PO DAILY 01/14/15 Prednisolone 5 mg PO DAILY 01/14/15 Tacrolimus [Astagraf Xl] 1 mg PO BID 01/14/15 Zafirlukast [Accolate] 20 mg PO BID PRN 01/14/15 Hydrocodone Bitartrate [Zohydro ER] 5 mg PO BID PRN PRN 11/16/17 Sulfamethoxazole/Trimethoprim [Sulfamethoxazole-Tmp Ds Tablet] 1 each PO QWEEK 11/16/17 Amlodipine [Norvasc] 10 mg PO DAILY #30 tab 11/21/17 Aspirin [Aspirin, Baby] 81 mg PO DAILY@0800 #30 tab.chew 11/21/17 Calcium (Elemental) [Os-Gabino 500] 500 mg PO BIDCM #60 tab 11/21/17 Doxazosin Mesylate [Cardura] 4 mg PO QHS #30 tab 11/21/17 Losartan Potassium [Cozaar] 50 mg PO BID #60 tab 11/21/17 The following prescriptions were given: Amlodipine [Norvasc] 10 mg PO DAILY #30 tab Aspirin [Aspirin, Baby] 81 mg PO DAILY@0800 #30 tab.chew Doxazosin Mesylate [Cardura] 4 mg PO QHS #30 tab Calcium (Elemental) [Os-Gabino 500] 500 mg PO BIDCM #60 tab Losartan Potassium [Cozaar] 50 mg PO BID #60 tab Orders to be completed after discharge: Basic Metabolic Profile (BMP) Time Frame: 1 Week, Location: Laboratory Primary Care Physician: Shanelle Luz DO [Primary Care Provider] - Please follow up with your Primary Care Physician in: within 2 weeks Please Follow Up With: Maria Luisa Kelly DO When: within 2 weeks with BP readings and repeat labs When: Follow-up with the vascular team in [facility] Proposed Discharge Date: 11/21/17
--- NOTE | 2017-11-21 09:48 | DS.PCM_ITS ---
Discharge Date and Diagnosis Date of Admission: 11/16/17 Date of Discharge: 11/21/17 - Primary Discharge Diagnosis Active and Suspected Problems TIA (transient ischemic attack) (Acute) Hypertensive emergency (Acute) - Secondary Discharge Diagnosis Chronic Problems Chronic pain syndrome (Chronic) HTN (hypertension) (Chronic) GERD (gastroesophageal reflux disease) (Chronic) Morbid obesity (Chronic) S/P kidney transplant (Chronic) S/P liver transplant (Chronic) Osteoarthritis (Chronic) Obesity (Chronic) Hyponatremia (Chronic) Hypokalemia (Chronic) Hydronephrosis (Chronic) End stage renal failure on dialysis (Chronic) Cirrhosis of liver (Chronic) Chronic nonalcoholic liver disease (Chronic) Obstructive sleep apnea (Chronic) Hepatic encephalopathy (Chronic) Anasarca (Chronic) Superficial thrombophlebitis (Chronic) Partial small bowel obstruction (Chronic) Anemia (Chronic) Hospital Course and Treatment Imaging Results: Clinical Impression(s) from Imaging Studies Brain CT 11/16/17 21:12 IMPRESSION: Chronic involutional changes of the brain. Small polypoid defect of the posterior left maxillary sinus consistent with a mucoid retention cyst. If acute infarct is clinically suspected, MRI may be helpful for further evaluation at this time. Electronically Signed: Jeffry Conti MD at 22:34 EDT , Service support , Chest X-Ray 11/16/17 21:12 IMPRESSION: Cardiomegaly. Electronically Signed: Jagdish Benito DO at 22:34 EDT Tel [phone], Service support , Brain MRI 11/17/17 07:25 IMPRESSION: Moderate atrophy and advanced periventricular white matter ischemic changes but no evidence for acute infarct. Electronically Signed: Tyrese Forte MD at 22:42 EDT , Service support , Head MRA 11/17/17 07:25 IMPRESSION: Normal MRA of the head Electronically Signed: Tyrese Forte MD at 22:43 EDT , Service support , Brain CT 11/17/17 12:09 IMPRESSION: Chronic involutional changes of the brain. Electronically Signed: Cliff Priest MD at 13:56 EDT Tel [phone], Service support , Abdomen X-Ray 11/17/17 12:26 IMPRESSION: There is no evidence of ileus, obstruction, or free intraperitoneal air. Electronically Signed: Jeffry Conti MD at 16:04 EDT , Service support , Nephrology Operations: None Procedures: None Summary of Care Provided: 66y/o male with multiple co-morbidities admitted on 09/08/2017 with right-sided paresthesia, facial droop secondary to TIA. Patient has history of renal artery stenosis, and blood pressure has been difficult to control in the hospital. 1. Right sided paresthesia and facial droop secondary to TIA. MRI of brain, MRA of the head and neck was negative for acute stroke, 2D echo was significant for stage I diastolic dysfunction, neurology consulted, patient will follow-up in the outpatient. 2. Accelerated hypertension/hypertensive emergency, BP was difficult to control , lots of medication changes were made, BP was 151/80 on the day of discharge. New scripts were written. 3. Renal artery stenosis(of the transplanted kidney), nephrology consulted, will follow-up in the outpatient 4. Nausea, vomiting, headaches likely related to blood pressure, resolved 5. CKD stage 3, s/p renal transplant, creatinine was stable in this admission and nephrology was following. Will see in outpatient in 2 weeks 6. NEWELL status post liver transplant, on mycophenolate and tacrolimus 7. Morbid obesity 8. Rest of multiple comorbidities were all stable Discharge Diet: Low fat/ Low Cholesterol, 1800 Calorie Control Diet, 2000 mg Sodium Diet Discharge Activity: Return to Normal Activity Home Medications: Medications to take at Discharge Carvedilol [Coreg (Beta Gee)] 25 mg PO BID 01/14/15 Docusate 100 mg PO PRN PRN 01/14/15 Magnesium Oxide [Mag-Ox 400] 1,600 mg PO DAILY 01/14/15 Mycophenolate Mofetil [Cellcept] 500 mg PO BID 01/14/15 Pantoprazole Granules [Protonix Granules for Suspension] 40 mg PO DAILY Prednisolone 5 mg PO DAILY 01/14/15 Tacrolimus [Astagraf Xl] 1 mg PO BID 01/14/15 Zafirlukast [Accolate] 20 mg PO BID PRN 01/14/15 Hydrocodone Bitartrate [Zohydro ER] 5 mg PO BID PRN PRN 11/16/17 Sulfamethoxazole/Trimethoprim [Sulfamethoxazole-Tmp Ds Tablet] 1 each PO QWEEK 11/16/17 Amlodipine [Norvasc] 10 mg PO DAILY #30 tab 11/21/17 Aspirin [Aspirin, Baby] 81 mg PO DAILY@0800 #30 tab.chew 11/21/17 Calcium (Elemental) [Os-Gabino 500] 500 mg PO BIDCM #60 tab 11/21/17 Doxazosin Mesylate [Cardura] 4 mg PO QHS #30 tab 11/21/17 Losartan Potassium [Cozaar] 50 mg PO BID #60 tab 11/21/17 Following Prescrptions Were Given to Patient: Amlodipine [Norvasc] 10 mg PO DAILY #30 tab Aspirin [Aspirin, Baby] 81 mg PO DAILY@0800 #30 tab.chew Doxazosin Mesylate [Cardura] 4 mg PO QHS #30 tab Calcium (Elemental) [Os-Gabino 500] 500 mg PO BIDCM #60 tab Losartan Potassium [Cozaar] 50 mg PO BID #60 tab Primary Care Physician: Shanelle Luz DO [Primary Care Provider] - Please follow up with your Primary Care Physician in: within 2 weeks Please Follow Up With: Maria Luisa Kelly DO When: within 2 weeks with BP readings and repeat labs When: Follow-up with the vascular team in [facility] Patient Instructions: Doxazosin Mesylate Oral tablet, Amlodipine Besylate Oral tablet, Losartan Potassium Oral tablet Disposition: Home Minutes spent on discharge:: 25 Patient Condition:: Stable Medical Necessity - Tobacco Use Smoking Status: Never smoker Tobacco Use: Non-smoker Meaningful Use Info Meaningful Use Diagnoses (Choose all that apply): None applicable Code Visit Inpatient E&M: 13300 Disch Hosp
--- NOTE | 2017-11-21 09:48 | DCINST_ITS ---
- Discharge Diagnoses Current Active Problems: Current Active and Chronic Problems Chronic pain syndrome (Chronic) HTN (hypertension) (Chronic) GERD (gastroesophageal reflux disease) (Chronic) Morbid obesity (Chronic) S/P kidney transplant (Chronic) S/P liver transplant (Chronic) TIA (transient ischemic attack) (Acute) Hypertensive emergency (Acute) Reason(s) for Visit for Discharge Instructions: Right paresthesias, facial droop You will use the following diet at home:: Cardiac, Renal (restricted protein/ sodium) Your food should be the consistency of: Regular Your liquids should be the consistency of: Regular/Thin Discharge Activity: Return to Normal Activity Additional Instructions: Please take note of all your current medications. Be careful not to mixold prescriptions with the new prescription. Stick to the current blood pressure regimen. Take your blood pressure every day and keep a log of it. 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 You are strongly advised to follow-up with the [facility] for further evaluation and surgery of your renal artery stenosis. Allergies/Adverse Reactions: Allergies morphine Allergy (Intermediate, Verified 12/02/16 13:22) Unknown DID NOT WORK, GOT WORSE metformin Allergy (Verified 12/02/16 13:22) Other pregabalin [From Lyrica] Allergy (Verified 12/02/16 13:22) Other TREMORS Medications to take at Discharge Carvedilol [Coreg (Beta Gee)] 25 mg PO BID 01/14/15 Docusate 100 mg PO PRN PRN 01/14/15 Magnesium Oxide [Mag-Ox 400] 1,600 mg PO DAILY 01/14/15 Mycophenolate Mofetil [Cellcept] 500 mg PO BID 01/14/15 Pantoprazole Granules [Protonix Granules for Suspension] 40 mg PO DAILY Prednisolone 5 mg PO DAILY 01/14/15 Tacrolimus [Astagraf Xl] 1 mg PO BID 01/14/15 Zafirlukast [Accolate] 20 mg PO BID PRN 01/14/15 Hydrocodone Bitartrate [Zohydro ER] 5 mg PO BID PRN PRN 11/16/17 Sulfamethoxazole/Trimethoprim [Sulfamethoxazole-Tmp Ds Tablet] 1 each PO QWEEK 11/16/17 Amlodipine [Norvasc] 10 mg PO DAILY #30 tab 11/21/17 Aspirin [Aspirin, Baby] 81 mg PO DAILY@0800 #30 tab.chew 11/21/17 Calcium (Elemental) [Os-Gabino 500] 500 mg PO BIDCM #60 tab 11/21/17 Doxazosin Mesylate [Cardura] 4 mg PO QHS #30 tab 11/21/17 Losartan Potassium [Cozaar] 50 mg PO BID #60 tab 11/21/17 The following prescriptions were given: Amlodipine [Norvasc] 10 mg PO DAILY #30 tab Aspirin [Aspirin, Baby] 81 mg PO DAILY@0800 #30 tab.chew Doxazosin Mesylate [Cardura] 4 mg PO QHS #30 tab Calcium (Elemental) [Os-Gabino 500] 500 mg PO BIDCM #60 tab Losartan Potassium [Cozaar] 50 mg PO BID #60 tab Orders to be completed after discharge: Basic Metabolic Profile (BMP) Time Frame: 1 Week, Location: Laboratory Primary Care Physician: Shanelle Luz DO [Primary Care Provider] - Please follow up with your Primary Care Physician in: within 2 weeks Please Follow Up With: Maria Luisa Kelly DO When: within 2 weeks with BP readings and repeat labs When: Follow-up with the vascular team in [facility] Proposed Discharge Date: 11/21/17
--- NOTE | 2017-11-21 10:06 | CASEMGMT ---
this RN CM to room to f/u with pt prior to discharge to make sure that he has no further concerns/needs at this time. Pt states no concerns at this time. Pt states that he is determined to have renal artery stent surgery soon. Pt states no further questions at this time. SStaten JESSICA BREWER
--- NOTE | 2017-11-21 15:53 | PN.RENAL_ITS ---
Subjective: Headaches resolved after hydralazine was discontinued. Renal function stable. Blood pressure currently stable. Home with follow-up with me in the office along with [facility] transplant department. I reviewed all his blood pressure medications with him and went over his home medications as well. - Physical Exam General: Alert, Oriented x3, Cooperative, No apparent distress Lungs: Clear to auscultation Cardiovascular: Regular rate Abdomen: Bowel Sounds Present, Soft, Obese Extremities: No edema Vital Signs Temp Pulse Resp BP Pulse Ox 97.8 F 62 16 151/83 H 96 11/21/17 11:01 11/21/17 11:14 11/21/17 11:01 11/21/17 11:01 11/21/17 11:01 Oxygen Flow Rate (L/min) 2 Oxygen Delivery Method Room Air Weight: 147.6 kg Body Mass Index (BMI) 47.9 Intake and Output for Last 24 Hours 11/19/17 11/20/17 11/21/17 23:59 23:59 23:59 Intake Total 3361 / 3361 1631 / 1631 779 / 779 Output Total 2470 / 2470 1625 / 1625 500 / 500 Balance 891 / 891 6 / 6 279 / 279 Microbiology Past 72 Hours 11/20/17 17:05 Influenza Types A,B Direct FA (POONAM) - Final Mucosa - Nose Medical Necessity - Tobacco Use Smoking Status: Never smoker Tobacco Use: Non-smoker Assessment/Plan 1. CKD stage 3 with renal function at baseline creatinine 2. 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 tbili/ALT mildly elevated with hx fatty liver. Follow-up with kidney liver transplant department at [facility]. Currently not on statin. Continue po CellCept and tacrolimus. Last FK level 6.6 in October 2017. 3. TIA follow-up with neurology 4. Hypertensive emergency. BP remains labile.Adjust medications as outpatient as needed. 5. Intractable nausea, vomiting resolved. 6. Hx renal artery stenosis in transplanted kidney on duplex in November 2016 at [facility] s/p failed procedure due to pain. Will need to reevaulate as outpt for renal artery stent at [facility] primary care team
[2017-11-22 14:33] LABS: Vitamin D 1,25-Dihydroxy 30.1 pg/mL (19.9-79.3)
== END 2017-11-21 15:16 | disposition home or self-care (01) | DRG 69 ==
LOC: ED 21:52 → PCU 23:12
PROVIDERS: Internal Medicine; Internal Medicine Nephrology; Admitting Provider Family Medicine; Emergency Provider Emergency Medicine; Family Provider Internal Medicine; PCP Internal Medicine; Visit Provider Internal Medicine
DX: G45.9 Transient cerebral ischemic attack, unspecified (principal); D69.6 Thrombocytopenia, unspecified; Z94.4 Liver transplant status; E66.01 Morbid (severe) obesity due to excess calories; I70.1 Atherosclerosis of renal artery; Z68.42 Body mass index [BMI] 45.0-49.9, adult; E86.0 Dehydration; Z94.0 Kidney transplant status; I16.1 Hypertensive emergency; N18.3 Chronic kidney disease, stage 3 (moderate); Z23 Encounter for immunization; Z79.899 Other long term (current) drug therapy; E78.5 Hyperlipidemia, unspecified; G47.33 Obstructive sleep apnea (adult) (pediatric); G89.4 Chronic pain syndrome; K21.9 Gastro-esophageal reflux disease without esophagitis; I12.9 Hypertensive chronic kidney disease with stage 1 through stage 4 chronic kidney disease, or unspecified chronic kidney disease
CPT/HCPCS: 36415; 36600; 70450; 70544; 70551; 71045; 74019; 80048; 80053; 80061; 80069; 82306; 82340; 82652; 82803; 82962; 83036; 83735; 83970; 84443; 84484; 85025; 85027; 85610; 85730; 87804; 92526; 92610; 93005; 93306; 94640; 94762; 97116; 97162; 97165; 97802; 99285; J7030; J7040; Q9957; 90686; A4216; J0610; J2405; J3490

== ENCOUNTER 2017-12-08 12:59 | Outpatient (RCR) | payer OTHER, SELFPAY ==
--- NOTE | 2017-12-08 13:34 | HP.PTEVAL_ITS ---
Patient's Visit Information TOM GALLAGHER is a 67 year old M referred to Physical Therapy by Danelle Jean-Baptiste NP.MCIESA with a diagnosis of vertigo. Date of Evaluation: 12/08/17 Physical Therapist: Robert Ornelas DPT, OC - Visit Plan Frequency: 1x/Week Duration: 2-4 Weeks Plan: Weekly x 2-4 for positional testing as needed. Ensure full recovery. - Subjective Subjective: has had dizzyness x 4 weeks. 2 weeks diagnosed with stroke due to droopy face and R arm felt funny. Treated at ER with meds and face and arm were better but dizzyness persists. Dizzyness lasts a few seconds with changing positions or rolling in bed or sitting up. Sometimes with bending over. No falls, no AD needed. Feels steady. Otherwise feels normal. - Objective Walks I and transfers I without evidence of imbalance. - R hallpike. + L hallpike treated with L Heather and then much better test but still positive and treated again. C/S aROM wFL and without pain. Needed assist to sit straight up from supine durign testing. - Goals Goal 1:: abolish dizzyness in bed and sitting up. Goal Time Frame: 2-4 Weeks - Rehabilitation Potential Physical Therapy Diagnosis: BPPV L posterior canal Rehabilitation Potential: Fair - Anticipated Interventions Patient/Client Instruction: Educate patient on: Condition, Plan of Care For the Purpose of:: To increase tolerance to activity/condition/position, To improve safety Comment: positional and vestibular as needed. For the Purpose of:: To increase tolerance to activity/condition/position Thank you for the opportunity to evaluate your patient. For Medicare and Medicare HMO plans, please review the plan of care and approve it. It will need to be FAXED BACK to us at [phone] for Medicare purposes. Please let me know if there are questions or concerns regarding this plan of care. Physician Signature: Date:
--- NOTE | 2018-01-02 13:47 | HP.PT.NRP ---
HP - Discharge Summary (1) - Patient Information TOM GALLAGHER was seen in my office for initial evaluation on 12/08/17. The following Plan of Care was established for this patient: Initial Frequency: 1x/Week Initial Duration: 2-4 Weeks - Anticipated Interventions Patient/Client Instruction: Educate patient on: Condition, Plan of Care For the Purpose of:: To increase tolerance to activity/condition/position, To improve safety For the Purpose of:: To increase tolerance to activity/condition/position This patient was last seen in our office 12/08/17. Pertinent comments regarding their Physical therapy will appear below: Treated one time with Positional and cancelled f/u visit as his problem was gone. At this point, it has been over a month adn I will discontinue. At this point I will be discontinuing this patient from physical therapy. I would be happy to see this patient again in the future if found appropriate by the physician. Thank you! Robert Ornelas, DPT, OC
== END 2017-12-08 19:00 | disposition home or self-care (01) ==
LOC: PT 12:59
PROVIDERS: Family Provider Internal Medicine; PCP Internal Medicine; Visit Provider Nurse Practitioner
DX: R42 Dizziness and giddiness (principal)
CPT/HCPCS: 97162

== ENCOUNTER → 2017-12-28 11:49 | Outpatient (CLI) | payer OTHER, SELFPAY ==
[2017-12-28 12:40] LABS: Amphetamine Urine VISTA NEGATIVE (<1000 ng/mL); Barbiturate Urine VISTA NEGATIVE (< 200 ng/mL); Benzodiazepine Urine VISTA NEGATIVE (< 200 ng/mL); Cocaine Urine VISTA NEGATIVE (< 300 ng/mL); Ecstacy Urine VISTA NEGATIVE (< 500 ng/mL); Methadone Urine VISTA NEGATIVE (< 300 ng/mL); PCP Urine VISTA NEGATIVE (< 25 ng/mL); THC Urine VISTA NEGATIVE (< 50 ng/mL); Vista UDS pH Range 5
== END ==
PROVIDERS: Family Provider Internal Medicine; PCP Internal Medicine; Visit Provider Anesthesiology Pain Medicine
DX: F11.20 Opioid dependence, uncomplicated (principal)
CPT/HCPCS: 80307

== ENCOUNTER 2018-06-17 20:06 | Emergency (ER) | payer OTHER, SELFPAY ==
[2018-06-17 20:08] VITALS: BP 115/90; PULSE 58; RESP 18; TEMP 36.3; O2SAT 97; BMI 49.1
--- NOTE | 2018-06-17 21:27 | EKG12_ITS ---
Test Reason : WEAKNESS Blood Pressure : / mmHG Vent. Rate : 052 BPM Atrial Rate : 052 BPM P-R Int : 164 ms QRS Dur : 092 ms QT Int : 414 ms P-R-T Axes : 092 -33 -01 degrees QTc Int : 385 ms Sinus bradycardia Left axis deviation Abnormal ECG Confirmed by ELADIA RUSSELL, CELESTE ([id number]), photograph editor LESTER EMERSON ([id number]) on 06/21/2018 10:16:36 AM Referred By: KAYLYN Confirmed By:CELESTE MONTILLA MD
--- NOTE | 2018-06-17 21:50 | RAD_ITS ---
STUDY: X-RAY - PELVIS AND RIGHT HIP REASON FOR EXAM: Male, 67 years old. Hip pain. TECHNIQUE: Radiological exam, hip, unilateral, with pelvis when performed; 2 or 3 views. COMPARISON: None. FINDINGS: There is a non-specific bowel gas pattern. There are atherosclerotic vascular calcifications of the pelvic arteries. Normal bilateral iliac wings, sacroiliac joints and visualized sacrum. Normal bilateral superior and inferior pubic rami. Normal pubic symphysis. Normal bilateral ischial tuberosities. Normal visualized femoral head. Normal acetabulum. Normal hip joint. RAD/HIP, UNI W/ Pelvis 2-3 Views IMPRESSION: Normal x-ray examination of the pelvis and hip. Electronically Signed: Max Mcintosh MD at 22:09 EDT , Service support ,
[2018-06-17 21:59] LABS: Absolute Lymphocyte Count 1.76 X10^3/ul (0.83-4.51); Absolute Neutrophil Count 5.6 X10^3/uL (2.0-7.7); Basophil# 0.01 X10^3/uL; Basophil% 0.1 % (0-1); Eosinophils% 1.2 % (0-5); Hematocrit 41.1 % (40-54); Hemoglobin 13.4 g/dl (13.0-16.5); Lymphocyte # 1.76 X10^3/ul (4.0); Lymphocyte % 21.7 % (19-41); Mean Corp Hgb Conc 32.6 g/gl (32-36); Mean Corpuscular Hgb 29.1 pg (27.0-32.0); Mean Corpuscular Volume 89.3 fL (80-94); Monocyte# 0.65 X10^3/uL; Neutrophil # 5.59 X10^3/uL (2.7-7.7); Neutrophil % 68.9 % (47-70); Platelet Count 133 K/mm3 (150-450); RBC Distribution Width CV 13.9 % (11.6-14.6); RBC Distribution Width SD 45.3 fl (35.1-43.9); White Blood Count 8.1 K/mm3 (4.4-11.0)
[2018-06-17 22:00] LABS: POSITIVE COUNT NO; POSITIVE DIFFERENTIAL NO; POSITIVE MORPHOLOGY NO
[2018-06-17 22:14] VITALS: BP 156/97; PULSE 61; RESP 14; O2SAT 95
[2018-06-17 22:15] LABS: ALB/GLOB Ratio 1.3 RATIO (0.9-2.4); AST(SGOT) 25 U/L (15-37); Alanine Aminotransfer ALT/SGPT 95 U/L (16-61); Albumin, Serum 3.7 g/dL (3.2-5.0); Alkaline Phosphatase 83 U/L (45-117); Anion Gap 6 (5-15); BUN 32 mg/dL (7-18); BUN/Creat Ratio 21.2 RATIO (10-20); Calcium,Total 8.8 mg/dL (8.5-10.1); Chloride 111 mmol/L (98-107); Creatinine, Serum 1.51 mg/dL (0.70-1.30); EST Glomerular Filtration Rate 49 mL/min (>60); Est Glom Filt Rate - Afr Amer 60 mL/min (>60); Estimated Creatinine Clearance 46.56 ml/min; Globulin 2.9 g/dL (2.2-4.2); Glucose 173 mg/dL (74-106); Potassium 4.4 mmol/L (3.5-5.1); Protein, Total 6.6 g/dL (6.4-8.2); Sodium Level 143 mmol/L (136-145)
[2018-06-17] MEDS: 0.9% Normal Saline 1,000 ML 150 ML IV (22:15)
[2018-06-17 23:05] LABS: Mucous, Urine 0 SEEN /hpf (<or=2+)
[2018-06-17 23:06] LABS: Color, Urine Yellow (Yellow); Glucose, Dipstick Normal (Normal); Ketone-Dipstick Negative (Negative); Leukocyte Esterase-Dipstick 500 /ul (Negative); Nitrite-Dipstick Negative (Negative); Occult Blood-Urine 25 /ul (Negative); Protein-Dipstick 100 mg/dl (Negative); Specific Gravity, Urine 1.025 (1.002-1.030); Urine Bilirubin Dipstick Negative (Negative); Urine Clarity Sl. Cloudy (Clear); Urine Urobilinogen Normal (Normal)
[2018-06-17 23:14] LABS: Amorphous Sediment 1+ URATE; Bacteria RARE /hpf (None Seen); Red Blood Cells-Urine 0-5 SEEN /hpf (0-5); Squamous Epithelial Cells - UA 0-5 SEEN /hpf (0-5); White Blood Cells >100 SEEN /hpf (0-5)
--- NOTE | 2018-06-17 23:31 | ED.VISSUMM ---
- ER Visit Summary Date of Service: 06/17/18 Chief Complaint: [Right hip pain] History of Present Illness: The patient is a 67 M [presents the emergency department complaint right hip pain over the last 3 days. Patient states that ever since he started going to physical therapy he is developed worsening pain in that right hip. Patient has a history of chronic back and hip pain and sees Dr. Beckman for pain management. Patient is scheduled to be seen again in pain management in 4 days. Patient also complains of a skin hurting all over. He has had some intermittent swelling in his legs. Patient denies any falls or recent injury. Patient able to bear some weight but has significant pain with standing and walking. He has had no fevers. He denies urinary symptoms. He does state that he gets urinary tract infections about every 3 months or so.] Patient has history of liver transplant and kidney transplant 6 years ago. Physical Examination: [HEENT-PERRLA, EOMI. Cranial nerves II through XII grossly intact. TMs clear. Mucous membranes moist. No adenopathy. Cardiovascular-regular rate and rhythm without murmur or ectopy Lungs-clear to auscultation, chest wall stable without crepitus or subcu emphysema Abdomen-normoactive bowel sounds, soft, nontender, no rebound or rigidity, no peritoneal signs. Back exam-patient has some mild tenderness over both SI joints. No significant tenderness over the thoracic or lumbar spine. No erythema or warmth noted to the back. Extremities-intact ?4, normal range of motion, normal pulses, atraumatic]. Right hip-there is no erythema or warmth noted. Patient has no pain with range of motion of the hip or logrolling. He is neurovascular intact distally. Test Results: [EKG obtained on arrival shows sinus rhythm with a ventricular rate of 52 bpm with no acute ST segment changes. CBC with differential showed a white count of 8.1, hemoglobin 13, hematocrit 41, platelets 133. Chemistries unremarkable. BUN was 32 and creatinine 1.51. LFTs showed a slightly elevated ALT of 95 which patient has chronic elevation in this. Troponin was less than 0.015. Urinalysis showed 500 leukocyte esterase and greater than 100 WBCs as well as rare bacteria. X-rays of the right hip were read as normal.] Emergency Department Course and Treatment: [Patient was given Rocephin 1 g IV.] She did not want anything for pain here and states he does not have much pain unless he is trying to stand and bear weight. Treatment Plan: [I discussed options of admitting patient for pain control and IV antibiotics as well as possible valuation by orthopedics and pain management. Patient would prefer not to be admitted at this point and would prefer to go home. Patient states that he gets urinary tract infections about every 3 months and [employer] typically works for him.] Patient feels that he will be able to get around with his walker. Disposition: [Discharged home in stable condition] Impression: [Urinary tract infection Generalized weakness Right hip pain-etiology uncertain] This note was generated with [employer] dictation software. It may contain incorrect words, spelling, and punctuation that were not noted in review of the chart prior to signing ED Disposition - Plan for ED Patient: Chief Complaint: Weakness Referrals: Shanelle Luz DO [Primary Care Provider] -
--- NOTE | 2018-06-17 23:35 | ED.DEP ---
ED Disposition - Plan for ED Patient: Chief Complaint: Weakness Instructions: ED Weakness UKO, ED UTI Cystitis Male Prescriptions: Ciprofloxacin [Cipro] 500 mg PO BID #20 tab Referrals: Shanelle Luz DO [Primary Care Provider] - 3-5 Days
[2018-06-18] MEDS: Ceftriaxone 1 GM/50 ML BAG IV (00:03)
[2018-06-18 00:15] VITALS: BP 162/114; PULSE 64; RESP 18
[2018-06-18 00:55] VITALS: RESP 18
== END 2018-06-18 00:58 | disposition home or self-care (01) ==
LOC: ED 21:30
PROVIDERS: Emergency Provider Emergency Medicine; Family Provider Internal Medicine; PCP Internal Medicine
DX: M25.551 Pain in right hip (principal); N39.0 Urinary tract infection, site not specified; R53.1 Weakness; Z94.4 Liver transplant status; Z94.0 Kidney transplant status; I10 Essential (primary) hypertension; Z86.73 Personal history of transient ischemic attack (TIA), and cerebral infarction without residual deficits; J45.909 Unspecified asthma, uncomplicated
CPT/HCPCS: 73502; 80053; 81001; 84484; 85025; 87086; 93005; 96361; 96365; 99284; J7030; A4216

== ENCOUNTER 2018-06-24 21:39 | Observation (INO) | payer OTHER, SELFPAY ==
[2018-06-24] VITALS (8 sets, daily range): BP systolic 165–210; BP diastolic 92–106; PULSE 49–56; RESP 16–20; TEMP 36.6; O2SAT 94–100; BMI 49.1
--- NOTE | 2018-06-24 21:58 | EKG12_ITS ---
Test Reason : CP Blood Pressure : / mmHG Vent. Rate : 051 BPM Atrial Rate : 051 BPM P-R Int : 182 ms QRS Dur : 102 ms QT Int : 438 ms P-R-T Axes : 067 -27 015 degrees QTc Int : 403 ms Sinus bradycardia Leftward axis Confirmed by ELADIA RUSSELL, CELESTE ([id number]), editor newspaper ROGELIO JONES ([id number]) on 06/26/2018 11:26:21 AM Referred By: SHERRY Confirmed By:CELESTE MONTILLA MD
[2018-06-24] MEDS: Aspirin 81 MG TAB.CHEW 324 MG PO (22:06)
[2018-06-24] MEDS: HYDROmorphone 0.5 MG/0.5 ML SYRINGE IV (22:08)
[2018-06-24] MEDS: Ondansetron 4 MG/2 ML Vial IV (22:08)
--- NOTE | 2018-06-24 22:12 | RAD_ITS ---
STUDY: X-RAY CHEST REASON FOR EXAM: Male, 67 years old. Chest pain TECHNIQUE: 1 view COMPARISON: November 16, 2017 FINDINGS: The lungs are clear and expanded. There is no demonstrated pleural abnormality. Mild cardiomegaly. Normal mediastinum and deandre. Normal visualized pulmonary arteries. Normal visualized aortic arch and descending thoracic aorta. Normal visualized thoracic spine. Normal visualized ribs, clavicles, and shoulders. There is no demonstrated abnormality of the visualized soft tissue structures of the upper abdomen. RAD/Chest 1 View (Portable) IMPRESSION: Mild cardiomegaly. No acute findings in the lungs Electronically Signed: Kevin Gonsalez MD at 22:27 EDT Tel , Service support ,
[2018-06-24 22:28] LABS: Absolute Neutrophil Count 4.6 X10^3/uL (2.0-7.7); Basophil# 0.01 X10^3/uL; Basophil% 0.1 % (0-1); Eosinophil# 0.11 X10^3/uL; Eosinophils% 1.5 % (0-5); Hematocrit 40.1 % (40-54); Hemoglobin 13.6 g/dl (13.0-16.5); Lymphocyte % 26.4 % (19-41); Mean Corp Hgb Conc 33.9 g/gl (32-36); Mean Corpuscular Hgb 29.6 pg (27.0-32.0); Mean Corpuscular Volume 87.2 fL (80-94); Mean Platelet Vol. 10.2 fl (6.2-12.0); Monocyte# 0.56 X10^3/uL; Monocyte% 7.8 % (0-10); Neutrophil # 4.61 X10^3/uL (2.7-7.7); Neutrophil % 64.1 % (47-70); POSITIVE COUNT NO; POSITIVE DIFFERENTIAL NO; POSITIVE MORPHOLOGY NO; Platelet Count 124 K/mm3 (150-450); RBC Distribution Width CV 13.4 % (11.6-14.6); RBC Distribution Width SD 42.6 fl (35.1-43.9); White Blood Count 7.2 K/mm3 (4.4-11.0)
[2018-06-24 22:44] LABS: Anion Gap 6 (5-15); BUN 28 mg/dL (7-18); BUN/Creat Ratio 18.5 RATIO (10-20); Calcium,Total 8.8 mg/dL (8.5-10.1); Chloride 108 mmol/L (98-107); Creatinine, Serum 1.51 mg/dL (0.70-1.30); EST Glomerular Filtration Rate 49 mL/min (>60); Est Glom Filt Rate - Afr Amer 60 mL/min (>60); Estimated Creatinine Clearance 46.56 ml/min; Glucose 152 mg/dL (74-106); Potassium 4.1 mmol/L (3.5-5.1); Sodium Level 142 mmol/L (136-145)
--- NOTE | 2018-06-24 23:05 | ED.VISSUMM ---
- ER Visit Summary Date of Service: 06/24/18 Chief Complaint: Chest and back pain History of Present Illness: The patient is a 67 M with chest pressure and pain between his shoulder blades is been progressive all day. It is unchanged with movement, activity, food, etc. He has a history of prior kidney and liver transplants. He denies coronary disease. He had a stress test prior to his surgery 6 years ago that was normal. He does have a history of hypertension secondary to renal artery stenosis. He did have stents placed, but continues to have difficulty with hypertension. Physical Examination: Blood pressure is 202/106, temperature 97.8, heart rate 52, respiratory rate 20, pulse ox 94% on room air. Patient's lying supine in the bed. He is in no acute distress. Head neck examination unremarkable. Heart is bradycardic and regular. Lung sounds are clear. Abdomen is soft nontender. Lower external examination reveals 2+ bilateral symmetric edema. He has strong distal pulses throughout. Test Results: Portable chest x-ray reveals mild cardiomegaly. No acute lung findings. EKG is sinus bradycardia at [address] change. CBC was normal white count. Platelet count is 124,000. Chemistry studies significant for BUN 28 creatinine 1.51. This is consistent with his prior renal function. Troponin is less than 0.015. Emergency Department Course and Treatment: Patient was given aspirin along with sublingual nitro on arrival and 0.5 mg of Dilaudid. His chest pain resolved after 1 sublingual nitro and the dose of Dilaudid. Blood pressures have steadily decreased throughout his ED stay. These include: 182/97, 166/98, 145/88. Test results are discussed with patient and at bedside. He will be admitted for further treatment and evaluation. Treatment Plan: [] Disposition: Admit Impression: 1. Chest pain 2. Hypertension, improved This note was generated with [employer] dictation software. It may contain incorrect words, spelling, and punctuation that were not noted in review of the chart prior to signing ED Disposition - Plan for ED Patient: Chief Complaint: Chest Pain Referrals: Shanelle Luz DO [Primary Care Provider] -
[2018-06-24] MEDS: Nitroglycerin Oint 1 INCH PACKET TRANSDERM. (23:39)
--- NOTE | 2018-06-24 23:41 | HP.PCM_ITS ---
Problem List (1) Hypertensive emergency Status: Acute (2) Chest pain Status: Acute History of Present Illness Date of Admission: 06/24/18 Chief Complaint: Chest pain The patient is a 67 year old M with a significant history of hypertension; GERD; liver and kidney transplants; TIA who presented with a 3-day history of chest pain. His chest pain is across his entire chest and occasionally he has some pinpoint pain in the right side of his chest. His chest pain radiates to his back. His chest pain is constant with no aggravating factors. Dilaudid given at the emergency department helped with his pain. Patient is allergic to morphine. Patient reports reports a one-week history of losing feelings in his feet and in his arms. At emergency department he was found to be in sinus bradycardia. His creatinine is 1.5 and it is baseline. Patient had a stress test many years ago; and also too he had had a stress test before his transplant. Past Medical History Past Medical History (Chronic Problems): Chronic Problems (Last Reviewed 06/25/18 @ 00:46 by Donald Vargas MD) Chronic pain syndrome (Chronic) HTN (hypertension) (Chronic) GERD (gastroesophageal reflux disease) (Chronic) Morbid obesity (Chronic) S/P kidney transplant (Chronic) S/P liver transplant (Chronic) Osteoarthritis (Chronic) Obesity (Chronic) Hyponatremia (Chronic) Hypokalemia (Chronic) Hydronephrosis (Chronic) End stage renal failure on dialysis (Chronic) Cirrhosis of liver (Chronic) Chronic nonalcoholic liver disease (Chronic) Obstructive sleep apnea (Chronic) Hepatic encephalopathy (Chronic) Anasarca (Chronic) Superficial thrombophlebitis (Chronic) Partial small bowel obstruction (Chronic) Anemia (Chronic) Medical History: Medical History (Last Reviewed 06/25/18 @ 00:46 by Donald Vargas MD) Chronic pain syndrome (Chronic) G89.4 HTN (hypertension) (Chronic) I10 GERD (gastroesophageal reflux disease) (Chronic) K21.9 Morbid obesity (Chronic) E66.01 TIA (transient ischemic attack) (Acute) G45.9 Hypertensive emergency (Acute) I16.1 Osteoarthritis (Chronic) Obesity (Chronic) E66.9 Hyponatremia (Chronic) E87.1 Hypokalemia (Chronic) E87.6 Hydronephrosis (Chronic) N13.30 End stage renal failure on dialysis (Chronic) N18.6, Z99.2 Cirrhosis of liver (Chronic) K74.60 Chronic nonalcoholic liver disease (Chronic) K76.9 Obstructive sleep apnea (Chronic) G47.33 Hepatic encephalopathy (Chronic) K72.90 Anasarca (Chronic) R60.1 Superficial thrombophlebitis (Chronic) I80.9 Partial small bowel obstruction (Chronic) Anemia (Chronic) D64.9 Allergies morphine Allergy (Intermediate, Verified 06/24/18 21:42) Unknown DID NOT WORK, GOT WORSE metformin Allergy (Verified 06/24/18 21:42) Other pregabalin [From Lyrica] Allergy (Verified 06/24/18 21:42) Other TREMORS Home Medications: Ambulatory Orders Medication Instructions Recorded Carvedilol [Coreg (Beta Gee)] 25 mg PO BID 01/14/15 Docusate 100 mg PO PRN PRN 01/14/15 Magnesium Oxide [Mag-Ox 400] 400 mg PO DAILY 01/14/15 Mycophenolate Mofetil [Cellcept] 500 mg PO BID 01/14/15 Pantoprazole Granules [Protonix 40 mg PO DAILY 01/14/15 Granules for Suspension] Tacrolimus [Astagraf Xl] 2 mg PO DAILY 01/14/15 Zafirlukast [Accolate] 20 mg PO PRN PRN 01/14/15 Sulfamethoxazole/Trimethoprim 1 tab PO 11/16/17 [Sulfamethoxazole-Tmp Ds Tablet] Amlodipine [Norvasc] 10 mg PO DAILY #30 tab 11/21/17 Doxazosin Mesylate [Cardura] 4 mg PO QHS #30 tab 11/21/17 Losartan Potassium [Cozaar] 50 mg PO BID #60 tab 11/21/17 Aspirin 325 mg PO DAILY@0800 #30 tab 11/23/17 Ciprofloxacin [Cipro] 500 mg PO BID #20 tab 06/17/18 Clopidogrel Bisulfate [Plavix] 75 mg PO DAILY 06/17/18 Oxycodone [Oxyir] 5 mg PO Q12H PRN PRN 06/25/18 Prednisone 5 mg PO QHS 06/25/18 Tacrolimus [Astagraf Xl] 1 mg PO QHS 06/25/18 Surgical History: Surgical History (Last Reviewed 06/25/18 @ 00:46 by Donald Vargas MD) S/P kidney transplant (Chronic) Z94.0 S/P liver transplant (Chronic) Z94.4 Surgical History: - - Renal and Liver Transplant, L TKR, R TKR, L wrist carpal tunnel release, Hernia repair with mesh, Cholecystectomy. Lives: Spouse/ Significant Other Smoking Status: Never smoker - *Family History Maternal Family History: Family History (Last Reviewed 06/25/18 @ 00:46 by Donald Vargas MD) Other PGM diabetes History Items: No pertinent history Paternal Family History: Family History (Last Reviewed 06/25/18 @ 00:46 by Donald Vargas MD) Other PGM diabetes History Items: Heart Disease, Hypertension Review of Systems Constitutional: Denies: Chills, Fever, Weight Change HEENT: Denies: Head Aches, Sinus Congestion, Sinus Drainage Cardiovascular: Reports: Chest Pain. Denies: Palpitations Respiratory: Denies: Cough, Shortness of breath at rest, Sputum production Gastrointestinal: Reports: Nausea. Denies: Abdominal Pain, Vomiting Genitourinary: Denies: Dysuria Musculoskeletal: Reports: - - Right hip pain( follows-up with pain management). Denies: Joint Pain, Joint Tenderness Skin: Denies: Rash, Wounds Neurological: Denies: Numbness, Tingling, Focal weakness Psychiatric: Denies: Anxiety, Depression, Homicidal Ideations, Suicidal Ideations Hematologic/ Lymphatic: Denies: Easy Bruising, Easy Bleeding VTE Information - Inpt Only VTE Present on Admission: No VTE Mechan Device Prophylaxis: None VTE Pharm Prophylaxis ordered?: Yes Patient Problems: Active and Suspected Problems (Last Reviewed 06/25/18 @ 00:46 by Donald Vargas MD) Chest pain (Acute) - Physical Exam General: Alert, Oriented x3, Cooperative HEENT: Atraumatic, PERRLA, EOMI, Normocephalic Neck: Supple, No JVD, Negative Carotid Bruits Lungs: Clear to auscultation, Normal air movement Cardiovascular: Regular rate, No murmurs, Bradycardic Abdomen: Bowel Sounds Present, Soft, Non Tender Extremities: No edema, Capillary Refill Less than 3 Seconds Skin: No rashes, No breakdown Musculoskeletal: No Tenderness to Palpation of Joints or Extremities Neurological: Cranial nerves II-XII grossly intact Psych/Mental Status: Normal Affect, Appropriate Vital Signs Temp Pulse Resp BP Pulse Ox 97.8 F 49 L 16 165/92 H 96 06/24/18 21:42 06/24/18 23:36 06/24/18 22:23 06/24/18 23:36 06/24/18 22:23 Oxygen Delivery Method Room Air Weight: 146.51 kg Body Mass Index (BMI) 49.1 Finger Stick Blood Glucose 118 Laboratory Tests Past 24 Hrs 06/24/18 06/24/18 22:20 22:20 WBC 7.2 RBC 4.60 Hgb 13.6 Hct 40.1 MCV 87.2 MCH 29.6 MCHC 33.9 RDW 13.4 RDW Differential 42.6 Plt Count 124 L MPV 10.2 Immature Gran % (Auto) 0.100 Neut % (Auto) 64.1 Lymph % (Auto) 26.4 [place] % (Auto) 7.8 Eos % (Auto) 1.5 Baso % (Auto) 0.1 Absolute Neuts (auto) 4.6 Absolute Lymphs (auto) 1.90 Total Counted Not Reportable Sodium 142 Potassium 4.1 Chloride 108 H Carbon Dioxide 28.0 Anion Gap 6 BUN 28 H Creatinine 1.51 H Estim Creat Clear Calc 46.56 Est GFR (MDRD) Af Amer 60 Est GFR (MDRD) Non-Af 49 L BUN/Creatinine Ratio 18.5 Glucose 152 H Calcium 8.8 Troponin I < 0.015 Assessment/Plan All Active Problems (Last Reviewed 06/25/18 @ 00:46 by Donald Vargas MD) Chest pain (Acute) TIA (transient ischemic attack) (Acute) Hypertensive emergency (Acute) The patient is a 67 year old M with a significant history of hypertension; GERD; liver and kidney transplants; TIA who presented with a 3-day history of chest pain. Chest pain Chest pain admissions admit to a monitored bed on PCU CXR independently reviewed confirms no acute cardiopulmonary disease. EKG independently reviewed confirms sinus bradycardia Home aspirin 325 mg continued Home Plavix continued SL NTG 0.4 mg prn as needed for chest pain Initial troponin was negative. serial cardiac enzymes Stat EKG as needed for chest pain Stress test in the AM if the cardiac enzymes are negative Etiology of his chest pain could be cardiac origin or from hypertensive emergency. Hypertensive emergency Admission systolic blood pressure was in the 200s and his diastolic blood pressure was in the 100s. Although he could have coronary disease leading to chest pain; his hypertensive emergency could also be causing his chest pain. Received nitroglycerin at emergency department Amlodipine and losartan continued Hydralazine as needed. Because of bradycardia in the low 50s to upper 40s home carvedilol was held Trend blood pressure and titrate blood pressure medication. Bradycardia Sinus bradycardia on EKG Beta-gee held as above Urinary tract infection Patient reported that outpatient he was prescribed 14 days of Cipro for UTI. He has already taken 10 days of his Cipro. Because of his history of kidney transplant we will continue his Cipro as prescribed History of transplant Tacrolimus and CellCept was continued. Bactrim DS likely for prevention of PCP continued. Obstructive sleep apnea Home CPAP continued DVT prophylaxis Subcutaneous heparin ordered. Code Visit OBSV E&M: 21083 Initial observation care L3
[2018-06-25] VITALS (16 sets, daily range): BP systolic 150–223; BP diastolic 75–113; PULSE 47–55; RESP 14–18; TEMP 36.4–37.2; O2SAT 94–97; BMI 48.7; BMI 48.8
--- NOTE | 2018-06-25 00:51 | EKG12_ITS ---
Test Reason : CP Blood Pressure : / mmHG Vent. Rate : 053 BPM Atrial Rate : 053 BPM P-R Int : 180 ms QRS Dur : 100 ms QT Int : 432 ms P-R-T Axes : 041 -33 022 degrees QTc Int : 405 ms Sinus bradycardia Left axis deviation Abnormal ECG Confirmed by ELADIA RUSSELL, CELESTE ([id number]), order editor LESTER EMERSON ([id number]) on 06/27/2018 1:40:37 PM Referred By: FAYE Confirmed By:CELESTE MONTILLA MD
[2018-06-25] MEDS: Atorvastatin Calcium 80 MG Tablet PO (01:54)
[2018-06-25] MEDS: oxyCODONE 5 MG Tablet PO (03:56)
[2018-06-25 05:40] LABS: Absolute Lymphocyte Count 1.62 X10^3/ul (0.83-4.51); Absolute Neutrophil Count 3.9 X10^3/uL (2.0-7.7); Eosinophil# 0.06 X10^3/uL; Hematocrit 38.4 % (40-54); Lymphocyte # 1.62 X10^3/ul (4.0); Mean Corp Hgb Conc 33.9 g/gl (32-36); Mean Corpuscular Hgb 29.6 pg (27.0-32.0); Mean Corpuscular Volume 87.5 fL (80-94); Mean Platelet Vol. 10.8 fl (6.2-12.0); Monocyte# 0.39 X10^3/uL; Monocyte% 6.5 % (0-10); Neutrophil % 65.2 % (47-70); Platelet Count 127 K/mm3 (150-450); RBC Distribution Width CV 13.1 % (11.6-14.6); Red Blood Count 4.39 M/mm3 (4.6-6.2)
[2018-06-25 05:54] LABS: Prothrombin Time (Protime)PT. 13.4 SECONDS (11.7-14.9)
--- NOTE | 2018-06-25 05:55 | EKG12_ITS ---
Test Reason : AM EKG Blood Pressure : / mmHG Vent. Rate : 053 BPM Atrial Rate : 053 BPM P-R Int : 186 ms QRS Dur : 096 ms QT Int : 420 ms P-R-T Axes : 057 -27 -23 degrees QTc Int : 394 ms Sinus bradycardia Abnormal ECG Confirmed by ELADIA RUSSELL, CELESTE ([id number]), fashion editor LESTER EMERSON ([id number]) on 06/27/2018 1:46:01 PM Referred By: MARIAN Confirmed By:CELESTE MONTILLA MD
[2018-06-25] MEDS: Aspirin 325 MG Tablet PO (06:12)
[2018-06-25] MEDS: Losartan Potassium 50 MG Tablet PO (06:12)
[2018-06-25 06:15] LABS: Anion Gap 8 (5-15); BUN 28 mg/dL (7-18); Calcium,Total 9.3 mg/dL (8.5-10.1); Chloride 107 mmol/L (98-107); Cholesterol 165 mg/dL (200); EST Glomerular Filtration Rate 54 mL/min (>60); Est Glom Filt Rate - Afr Amer 65 mL/min (>60); Estimated Creatinine Clearance 50.21 ml/min; Glucose 147 mg/dL (74-106); High Density Lipoprotein 34 mg/dL; Potassium 4.3 mmol/L (3.5-5.1); Sodium Level 142 mmol/L (136-145); Triglycerides 98 mg/dL; Very Low Density Lipoprotein 20 mg/dL (5-40)
[2018-06-25 06:20] LABS: POSITIVE COUNT NO; POSITIVE DIFFERENTIAL NO; POSITIVE MORPHOLOGY NO
[2018-06-25] MEDS: Clopidogrel Bisulfate 75 MG Tablet PO (06:37)
[2018-06-25] MEDS: 0.9% NaCl Peripheral Flush Adult/Peds IV ×6 (06:38→17:01)
[2018-06-25] MEDS: HYDROmorphone 1 MG/ML Syringe IV ×4 (06:39→16:57)
[2018-06-25] MEDS: hydrALAZINE 20 MG/ML Vial 10 MG IV ×2 (06:54→11:02)
--- NOTE | 2018-06-25 07:41 | NURSING ---
Around 06:00, pt c/o 03/13 CP. STAT EGK taken. VS taken. Pt given 1 mg IV Dilaudid. Pt also given 10 mg Hydralazine d/t bp being 223 Systolic. MD notified of elevated BP and CP.
--- NOTE | 2018-06-25 07:43 | NURSING ---
Dom from stress lab notified that pt Nitro paste not taken off until around 0030. Stress lab staff notified that pt has Hydralazine this AM.
[2018-06-25] MEDS: amLODIPine 10 MG Tablet PO (09:00)
--- NOTE | 2018-06-25 10:10 | STRESSREP ---
Stress Test Report Date: 06/25/2018 Procedure: Pharmacologic stress nuclear imaging study Indications: Chest pain Consent: Per the patient Procedure: The patient underwent pharmacologic (Regadenoson) evaluation with a peak heart rate of 77 beats per minute (50 predicted maximal heart rate) and a peak blood pressure of 230/100 mmHg. The baseline ECG demonstrated on his bradycardia. The peak pharmacologic ECG demonstrated no obvious ECG changes. There were no cardiac dysrhythmias pretest, during pharmacologic infusion, or recovery. The patient noted chest discomfort during recovery at which time his blood pressure was elevated at 230/100 mmHg which improved status post medical management with the patient's antihypertensive therapy and nitroglycerin sublingual x2. The examination was discontinued secondary to completion of protocol. Impression: 1. Pharmacologic (Regadenoson) evaluation 2. Peak pharmacologic ECG with no obvious ECG changes. 3. There were no cardiac dysrhythmias pretest, during pharmacologic infusion, or recovery. 4. Nuclear images pending Myocardial perfusion imaging study: Technique: The patient was injected with 14.9 millicuries of technetium 99m Cardiolite and subsequently rest SPECT Cardiolite nuclear imaging was obtained in the horizontal long, vertical long, and short axis views. The patient underwent pharmacologic (Regadenoson) evaluation with a peak heart rate of 77 beats per minute (50 % percent predicted maximal heart rate) and a peak blood pressure of 230/100 mmHg. The patient was injected with 44.8 millicuries of technetium 99m Cardiolite and subsequently stress SPECT Cardiolite nuclear imaging was obtained in the horizontal long, vertical long, and short axis views. A gated Cardiolite study at peak stress was obtained. Interpretation: Rest and stress SPECT Cardiolite nuclear imaging status post realignment, normalization, and attenuation correction demonstrate a small area of subtle diminished tracer uptake near the apical segments without significant change between rest and stress. There is end systolic thickening and brightening. The gated Cardiolite study demonstrates myocardial thickening and inward wall motion. The reported LVEF is 53 %. Impression: 1. Rest and stress SPECT Cardiolite nuclear imaging demonstrate a small area of subtle diminished tracer uptake near the apical segments without significant change between rest and stress appearing compatible with physiologic apical thinning with no myocardial perfusion changes considered diagnostic for associated stress-induced myocardial ischemia. 2. The gated Cardiolite study reports an LVEF of 53 %. This note was generated with thesixtyone software. It may contain incorrect words, spelling, and punctuation that were not noted in checking the note before signing.
--- NOTE | 2018-06-25 10:13 | STRESSREP_ITS ---
Stress Test Report Date: 06/25/2018 Procedure: Pharmacologic stress nuclear imaging study Indications: Chest pain Consent: Per the patient Procedure: The patient underwent pharmacologic (Regadenoson) evaluation with a peak heart rate of 77 beats per minute (50 predicted maximal heart rate) and a peak blood pressure of 230/100 mmHg. The baseline ECG demonstrated on his bradycardia. The peak pharmacologic ECG demonstrated no obvious ECG changes. There were no cardiac dysrhythmias pretest, during pharmacologic infusion, or recovery. The patient noted chest discomfort during recovery at which time his blood pressure was elevated at 230/100 mmHg which improved status post medical management with the patient's antihypertensive therapy and nitroglycerin sublingual x2. The examination was discontinued secondary to completion of protocol. Impression: 1. Pharmacologic (Regadenoson) evaluation 2. Peak pharmacologic ECG with no obvious ECG changes. 3. There were no cardiac dysrhythmias pretest, during pharmacologic infusion, or recovery. 4. Nuclear images pending Myocardial perfusion imaging study: Technique: The patient was injected with 14.9 millicuries of technetium 99m Cardiolite and subsequently rest SPECT Cardiolite nuclear imaging was obtained in the horizontal long, vertical long, and short axis views. The patient underwent pharmacologic (Regadenoson) evaluation with a peak heart rate of 77 beats per minute (50 % percent predicted maximal heart rate) and a peak blood pressure of 230/100 mmHg. The patient was injected with 44.8 millicuries of technetium 99m Cardiolite and subsequently stress SPECT Cardiolite nuclear imaging was obtained in the horizontal long, vertical long, and short axis views. A gated Cardiolite study at peak stress was obtained. Interpretation: Rest and stress SPECT Cardiolite nuclear imaging status post realignment, normalization, and attenuation correction demonstrate a small area of subtle diminished tracer uptake near the apical segments without significant change between rest and stress. There is end systolic thickening and brightening. The gated Cardiolite study demonstrates myocardial thickening and inward wall motion. The reported LVEF is 53 %. Impression: 1. Rest and stress SPECT Cardiolite nuclear imaging demonstrate a small area of subtle diminished tracer uptake near the apical segments without significant change between rest and stress appearing compatible with physiologic apical thinning with no myocardial perfusion changes considered diagnostic for associ ated stress-induced myocardial ischemia. 2. The gated Cardiolite study reports an LVEF of 53 %. This note was generated with Dragon dictation software. It may contain incorrect words, spelling, and punctuation that were not noted in checking the note before signing.
[2018-06-25] MEDS: Magnesium Oxide 400 MG Tablet PO (10:37)
[2018-06-25] MEDS: Mycophenolate Mofetil 250 MG Capsule 500 MG PO (10:37)
[2018-06-25] MEDS: Ciprofloxacin 500 MG Tablet PO (10:38)
[2018-06-25] MEDS: Tacrolimus Anhydrous 1 MG Capsule 2 MG PO (10:38)
[2018-06-25] MEDS: Pantoprazole Sodium 40 MG Tablet PO (10:40)
[2018-06-25] MEDS: Smz/Tmp Ds Tablet 1 TABLET PO (10:40)
[2018-06-25] MEDS: Nitroglycerin Oint 1 INCH PACKET TRANSDERM. (11:07)
[2018-06-25 11:39] LABS: Hemoglobin A1c 6.2 % (4.2-6.3)
--- NOTE | 2018-06-25 11:48 | DCINST_ITS ---
- Discharge Diagnoses Current Active Problems: Current Active and Chronic Problems (Last Reviewed 06/25/18 @ 00:46 by Donald Vargas MD) Chest pain (Acute) You will use the following diet at home:: No restrictions Your food should be the consistency of: Regular Your liquids should be the consistency of: Regular/Thin Discharge Activity: Return to Normal Activity Weight Bearing Status: Full weight bearing Allergies/Adverse Reactions: Allergies morphine Allergy (Intermediate, Verified 06/24/18 21:42) Unknown DID NOT WORK, GOT WORSE metformin Allergy (Verified 06/24/18 21:42) Other pregabalin [From Lyrica] Allergy (Verified 06/24/18 21:42) Other TREMORS Medications to take at Discharge Carvedilol [Coreg (Beta Gee)] 25 mg PO BID 01/14/15 Docusate 100 mg PO PRN PRN 01/14/15 Magnesium Oxide [Mag-Ox 400] 400 mg PO DAILY 01/14/15 Mycophenolate Mofetil [Cellcept] 500 mg PO BID 01/14/15 Pantoprazole Granules [Protonix Granules for Suspension] 40 mg PO DAILY 01/14/15 Tacrolimus [Astagraf Xl] 2 mg PO DAILY 01/14/15 Zafirlukast [Accolate] 20 mg PO PRN PRN 01/14/15 Sulfamethoxazole/Trimethoprim [Sulfamethoxazole-Tmp Ds Tablet] 1 tab PO 11/16/17 Amlodipine [Norvasc] 10 mg PO DAILY #30 tab 11/21/17 Doxazosin Mesylate [Cardura] 4 mg PO QHS #30 tab 11/21/17 Losartan Potassium [Cozaar] 50 mg PO BID #60 tab 11/21/17 Aspirin 325 mg PO DAILY@0800 #30 tab 11/23/17 Ciprofloxacin [Cipro] 500 mg PO BID #20 tab 06/17/18 Clopidogrel Bisulfate [Plavix] 75 mg PO DAILY 06/17/18 Oxycodone [Oxyir] 5 mg PO Q12H PRN PRN 06/25/18 Prednisone 5 mg PO QHS 06/25/18 Tacrolimus [Astagraf Xl] 1 mg PO QHS 06/25/18 Primary Care Physician: Shanelle Luz DO [Primary Care Provider] - Please follow up with your Primary Care Physician in: in 2 weeks Test Results: Test results from this visit will be discussed in further detail at your follow- up appointment, if applicable.
--- NOTE | 2018-06-25 12:44 | CT_ITS ---
STUDY: CT CHEST WITHOUT CONTRAST REASON FOR EXAM: Male, 67 years old. Chest pain RADIATION DOSAGE (If Supplied By Facility): CTDIvol = ( 20.72 ) mGy, DLP = ( 623.02 ) mGycm TECHNIQUE: Transaxial imaging was performed without the administration of intravenous contrast material. Coronal and sagittal 2-D MPR Individualized dose optimization techniques were used for this CT. COMPARISON: None x-ray chest 06/24/2018, 11/16/2017, CT chest 11/22/2017. FINDINGS: Supraclavicular: No acute process. Thoracic body wall soft tissues: No acute process. Upper abdomen: Limited evaluation, no acute process. Osseous structures: No acute process. There are prominent degenerative changes of the glenohumeral joints bilaterally. There is mild kyphoscoliosis with mild multilevel thoracic disc degeneration without thoracic stenosis. There are prominent disc degenerative features of the low cervical spine incompletely characterized at the apex of the field of view. Mediastinum: Normal esophagus. There is no mediastinal or hilar mass or lymphadenopathy. Aorta: Aneurysmal ectasia of the ascending aorta and proximal arch up to 4.25 cm with minimal arch atherosclerosis. There are mild calcifications of the aortic valve leaflets and of the aortic valve annulus. Pulmonary arteries: Nondilated. Heart: Borderline cardiomegaly without pericardial effusion. There are extensive three-vessel coronary calcifications and there appear to be multiple stents in place. Correlate stent history. Lungs: Clear bilateral lungs with no significant chronic interstitial changes. Unremarkable airways. CT/Chest without Contrast IMPRESSION: Coronary atherosclerosis. Correlate cardiac history. Mild aneurysmal ectasia of the ascending aorta and proximal arch 4.25 cm. Mild calcifications of the aortic valve. No other acute cardiopulmonary process is evident. Electronically Signed: Wil Abreu, at 14:03 EDT Tel , Service support ,
[2018-06-25] MEDS: Montelukast 10 MG Tablet PO (13:09)
--- NOTE | 2018-06-25 16:47 | DCINST_ITS ---
- Discharge Diagnoses Current Active Problems: Current Active and Chronic Problems (Last Updated 06/25/18 @ 14:33 by Sami Ledezma DO) Chest pain (Acute) You will use the following diet at home:: No restrictions Your food should be the consistency of: Regular Your liquids should be the consistency of: Regular/Thin Discharge Activity: Return to Normal Activity Weight Bearing Status: Full weight bearing Allergies/Adverse Reactions: Allergies morphine Allergy (Intermediate, Verified 06/24/18 21:42) Unknown DID NOT WORK, GOT WORSE metformin Allergy (Verified 06/24/18 21:42) Other pregabalin [From Lyrica] Allergy (Verified 06/24/18 21:42) Other TREMORS Medications to take at Discharge Carvedilol [Coreg (Beta Gee)] 25 mg PO BID 01/14/15 Docusate 100 mg PO PRN PRN 01/14/15 Magnesium Oxide [Mag-Ox 400] 400 mg PO DAILY 01/14/15 Mycophenolate Mofetil [Cellcept] 500 mg PO BID 01/14/15 Pantoprazole Granules [Protonix Granules for Suspension] 40 mg PO DAILY 01/14/15 Tacrolimus [Astagraf Xl] 2 mg PO DAILY 01/14/15 Zafirlukast [Accolate] 20 mg PO PRN PRN 01/14/15 Sulfamethoxazole/Trimethoprim [Sulfamethoxazole-Tmp Ds Tablet] 1 tab PO 11/16/17 Amlodipine [Norvasc] 10 mg PO DAILY #30 tab 11/21/17 Doxazosin Mesylate [Cardura] 4 mg PO QHS #30 tab 11/21/17 Losartan Potassium [Cozaar] 50 mg PO BID #60 tab 11/21/17 Aspirin 325 mg PO DAILY@0800 #30 tab 11/23/17 Ciprofloxacin [Cipro] 500 mg PO BID #20 tab 06/17/18 Clopidogrel Bisulfate [Plavix] 75 mg PO DAILY 06/17/18 Oxycodone [Oxyir] 5 mg PO Q12H PRN PRN 06/25/18 Prednisone 5 mg PO QHS 06/25/18 Tacrolimus [Astagraf Xl] 1 mg PO QHS 06/25/18 hydrALAZINE [Apresoline] 50 mg PO TID #90 tablet 06/25/18 The following prescriptions were given: hydrALAZINE [Apresoline] 50 mg PO TID #90 tablet Primary Care Physician: Shanelle Luz DO [Primary Care Provider] - Please follow up with your Primary Care Physician in: in 2 weeks Test Results: Test results from this visit will be discussed in further detail at your follow- up appointment, if applicable. Please Follow Up With: Shanelle Luz DO
[2018-06-25] MEDS: Ondansetron 4 MG/2 ML Vial IV (16:50)
--- NOTE | 2018-06-27 17:49 | DS.PCM_ITS ---
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 #3 hypertensive urgency #4 cystitis-present on admission and treated as an outpatient #5 chronic kidney disease stage III - Secondary Discharge Diagnosis Chronic Problems (Last Updated 06/25/18 @ 14:33 by Sami Ledezma DO) Chronic pain syndrome (Chronic) HTN (hypertension) (Chronic) GERD (gastroesophageal reflux disease) (Chronic) Morbid obesity (Chronic) S/P kidney transplant (Chronic) S/P liver transplant (Chronic) Osteoarthritis (Chronic) Obesity (Chronic) Hyponatremia (Chronic) Hypokalemia (Chronic) Hydronephrosis (Chronic) Cirrhosis of liver (Chronic) Chronic nonalcoholic liver disease (Chronic) Obstructive sleep apnea (Chronic) Hepatic encephalopathy (Chronic) Anasarca (Chronic) Superficial thrombophlebitis (Chronic) Partial small bowel obstruction (Chronic) Anemia (Chronic) Hospital Course and Treatment Operations: herniorrhaphy Procedures: Nuclear stress test Summary of Care Provided: The patient is a 67 year old M in in the emergency room at [facility] with chief complaint of chest pain which he described as a pressure- like sensation. Workup in the emergency room showed his blood pressure to be elevated at 202/106, chest x-ray revealed mild cardiomegaly but no acute findings, EKG showed a sinus bradycardia at [address] changes, CBC was within normal limits, chemistry studies showed a creatinine of 1.51 and BUN of 28. Troponin was normal. Patient was given sublingual nitro and IV Dilaudid, patient's chest pain was relieved. Repeat blood pressure was lower at 182/97, patient was placed into observation status on PCU and monitored on telemetry, patient's cardiac enzymes were cycled and they remain normal. Patient underwent a nuclear stress test that was negative for reversible ischemia. 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 Patient was advised to follow-up with his family physician regarding further CTs to monitor the size of this aneurysm. On 06/25/18, patient was seen and examined and felt to be in stable condition for discharge home. Further note: It was not felt by this examiner that the patient had hypertensive emergency-only hypertensive urgency. Patient was placed on Apresoline in addition to continuing his other medications as an outpatient. Physical exam: On examination he appeared in good health and spirits. Vital signs as documented. Skin warm and dry and without overt rashes. Neck without JVD. Lungs clear. Heart exam notable for regular rhythm, normal sounds and absence of murmurs, rubs or gallops. Abdomen unremarkable and without evidence of organomegaly, masses, or abdominal aortic enlargement. Extremities nonedematous. Neuro: Cranial nerves II through XII are grossly intact, no focal motor deficits were noted, sensation was noted to pinprick and light touch. Psych: Patient was alert and oriented x3 and appropriate, he did not appear anxious or depressed. - Physical Exam Vital Signs Temp Pulse Resp BP Pulse Ox 98.0 F 53 L 17 150/84 H 96 06/25/18 16:44 06/25/18 16:44 06/25/18 16:44 06/25/18 16:44 06/25/18 16:44 Oxygen Flow Rate (L/min) 2 Oxygen Delivery Method Room Air Weight: 145.5 kg Body Mass Index (BMI) 48.7 Finger Stick Blood Glucose 118 Intake and Output for Last 24 Hours 06/25/18 06/26/18 06/27/18 23:59 23:59 23:59 Intake Total 645 / 645 Output Total 400 / 400 Balance 245 / 245 Discharge Activity: Return to Normal Activity Weight Bearing Status: Full weight bearing Home Medications: Medications to take at Discharge Carvedilol [Coreg (Beta Gee)] 25 mg PO BID 01/14/15 Docusate 100 mg PO PRN PRN 01/14/15 Magnesium Oxide [Mag-Ox 400] 400 mg PO DAILY 01/14/15 Mycophenolate Mofetil [Cellcept] 500 mg PO BID 01/14/15 Pantoprazole Granules [Protonix Granules for Suspension] 40 mg PO DAILY 01/14/15 Tacrolimus [Astagraf Xl] 2 mg PO DAILY 01/14/15 Zafirlukast [Accolate] 20 mg PO PRN PRN 01/14/15 Sulfamethoxazole/Trimethoprim [Sulfamethoxazole-Tmp Ds Tablet] 1 tab PO 03/15/18 Amlodipine [Norvasc] 10 mg PO DAILY #30 tab 11/21/17 Doxazosin Mesylate [Cardura] 4 mg PO QHS #30 tab 11/21/17 Losartan Potassium [Cozaar] 50 mg PO BID #60 tab 11/21/17 Aspirin 325 mg PO DAILY@0800 #30 tab 11/23/17 Ciprofloxacin [Cipro] 500 mg PO BID #20 tab 06/17/18 Clopidogrel Bisulfate [Plavix] 75 mg PO DAILY 06/17/18 Oxycodone [Oxyir] 5 mg PO Q12H PRN PRN 06/25/18 Prednisone 5 mg PO QHS 06/25/18 Tacrolimus [Astagraf Xl] 1 mg PO QHS 06/25/18 hydrALAZINE [Apresoline] 50 mg PO TID #90 tablet 06/25/18 Following Prescrptions Were Given to Patient: hydrALAZINE [Apresoline] 50 mg PO TID #90 tablet Primary Care Physician: Shanelle Luz DO [Primary Care Provider] - Please follow up with your Primary Care Physician in: in 2 weeks Please Follow Up With: Shanelle Luz DO Disposition: Home Minutes spent on discharge:: 32 Patient Condition:: Stable Medical Necessity - Tobacco Use Smoking Status: Never smoker Tobacco Use: Non-smoker Meaningful Use Info Meaningful Use Diagnoses (Choose all that apply): None applicable Code Visit OBSV E&M: 42752 Observation care discharge
== END 2018-06-25 11:47 | disposition home or self-care (01) ==
LOC: ED 22:05 → PCU 06-25 00:09
PROVIDERS: Admitting Provider Hospitalist; Emergency Provider Emergency Medicine; Family Provider Internal Medicine; PCP Internal Medicine; Visit Provider Internal Medicine
DX: R07.89 Other chest pain (principal); I16.1 Hypertensive emergency; K21.9 Gastro-esophageal reflux disease without esophagitis; G89.4 Chronic pain syndrome; E66.01 Morbid (severe) obesity due to excess calories; M19.90 Unspecified osteoarthritis, unspecified site; I12.0 Hypertensive chronic kidney disease with stage 5 chronic kidney disease or end stage renal disease; N18.6 End stage renal disease; Z86.73 Personal history of transient ischemic attack (TIA), and cerebral infarction without residual deficits; Z79.899 Other long term (current) drug therapy; Z79.82 Long term (current) use of aspirin; Z79.02 Long term (current) use of antithrombotics/antiplatelets; Z68.42 Body mass index [BMI] 45.0-49.9, adult; Z71.3 Dietary counseling and surveillance; Z94.0 Kidney transplant status; Z94.4 Liver transplant status; Z99.2 Dependence on renal dialysis; G47.33 Obstructive sleep apnea (adult) (pediatric); R00.1 Bradycardia, unspecified; N30.90 Cystitis, unspecified without hematuria; I71.2 Thoracic aortic aneurysm, without rupture
CPT/HCPCS: 36415; 71045; 71250; 78452; 80048; 80061; 83036; 84484; 85025; 85610; 85730; 93005; 93017; 96374; 96375; 96376; 97162; 97165; 97802; 99218; 99283; A9500; A4216; G0378; J2405; J2785

== ENCOUNTER → 2018-10-03 13:24 | Outpatient (CLI) | payer OTHER, SELFPAY ==
--- NOTE | 2018-10-03 13:00 | MRI_ITS ---
STUDY: MRI LUMBAR SPINE WITHOUT CONTRAST REASON FOR EXAM: Male, 67 years old. Low back pain and bilateral hip pain TECHNIQUE: Standardized fat and water weighted pulse sequences were obtained in the sagittal and axial planes. COMPARISON: March 16, 2016 FINDINGS: T12-L1: Normal endplates. Normal disc height, hydration and morphology. Normal bilateral facet joints. Normal central canal and bilateral lateral recesses. Normal bilateral intervertebral neural foramina. Normal lumbar lordosis. There is a dextroscoliosis of the lumbar spine. Normal conus medullaris that terminates at the L1 level. L1-2: Normal endplates. Normal disc height, hydration and morphology. Normal bilateral facet joints. Normal central canal and bilateral lateral recesses. Normal bilateral intervertebral neural foramina. L2-3: Normal endplates. Normal disc height, hydration and morphology. Hypertrophic bilateral facet joints. Normal central canal and bilateral lateral recesses. Narrowed bilateral intervertebral neural foramina. L3-4: Moderate broad-based posterior disc marginal osteophyte and hypertrophic facet disease causes moderately severe narrowing of the central and lateral spinal canal. The central thecal sac measures 7 mm in the midline. L4-5: Moderate central posterior disc marginal osteophyte and severe narrowing of the neural foramina bilaterally due to hypertrophic facet disease. Central thecal sac patent. L5-S1: Normal endplates. Normal disc height, hydration and morphology. Normal bilateral facet joints. Normal central canal and bilateral lateral recesses. Normal bilateral intervertebral neural foramina. Normal visualized sacral ala. Normal visualized paraspinous soft tissue structures. MRI/Spine Lumbar (Routine) IMPRESSION: Spinal stenosis at L3-4 and L4-5 as above unchanged Electronically Signed: Britton Waddell MD at 16:14 EST , Service support ,
== END ==
PROVIDERS: Family Provider Internal Medicine; PCP Internal Medicine; Referring Provider Anesthesiology Pain Medicine; Visit Provider Anesthesiology Pain Medicine
DX: M54.9 Dorsalgia, unspecified (principal); M79.606 Pain in leg, unspecified
CPT/HCPCS: 72148

== ENCOUNTER → 2018-10-17 10:10 | Outpatient (CLI) | payer OTHER, SELFPAY ==
[2018-06-25 00:54] VITALS: BMI 48.7
[2018-10-17 11:42] LABS: Amphetamine Urine VISTA NEGATIVE (<1000 ng/mL); Barbiturate Urine VISTA NEGATIVE (< 200 ng/mL); Benzodiazepine Urine VISTA NEGATIVE (< 200 ng/mL); Cocaine Urine VISTA NEGATIVE (< 300 ng/mL); Ecstacy Urine VISTA NEGATIVE (< 500 ng/mL); Methadone Urine VISTA NEGATIVE (< 300 ng/mL); PCP Urine VISTA NEGATIVE (< 25 ng/mL); THC Urine VISTA NEGATIVE (< 50 ng/mL); Vista UDS pH Range 5
== END ==
PROVIDERS: Family Provider Internal Medicine; PCP Internal Medicine; Referring Provider Anesthesiology Pain Medicine; Visit Provider Anesthesiology Pain Medicine
DX: F11.20 Opioid dependence, uncomplicated (principal)
CPT/HCPCS: 80307

== ENCOUNTER 2018-11-23 17:24 | Emergency (ER) | payer OTHER, SELFPAY ==
[2018-11-23 17:25] VITALS: BP 155/93; PULSE 63; RESP 22; TEMP 37.2; O2SAT 95; BMI 47.3
--- NOTE | 2018-11-23 18:11 | EKG12_ITS ---
Test Reason : GEN ILL Blood Pressure : / mmHG Vent. Rate : 058 BPM Atrial Rate : 058 BPM P-R Int : 184 ms QRS Dur : 102 ms QT Int : 446 ms P-R-T Axes : 073 -38 -02 degrees QTc Int : 437 ms Sinus bradycardia Left axis deviation Abnormal ECG Confirmed by KATHERINE RUSSELL, SHAUN ([id number]), editor in chief newspaper RACHELE FRANZ ([id number]) on 11/26/2018 11:16:06 AM Referred By: Mason Beckman Confirmed By:SHAUN MURPHY MD
--- NOTE | 2018-11-23 19:05 | RAD_ITS ---
STUDY: X-RAY CHEST REASON FOR EXAM: Male, 67 years old. Short of breath. TECHNIQUE: Frontal and lateral views of the chest. COMPARISON: Chest x-ray 06/24/2018, CT scan 06/25/2018. FINDINGS: The lungs are clear and expanded. There is no demonstrated pleural abnormality. Normal size heart. Normal mediastinum and deandre. Normal visualized pulmonary arteries. There is atherosclerotic tortuosity and ectasia of the aortic arch and descending thoracic aorta, stable. There are diffuse degenerative changes of the visualized thoracic spine. There is degenerative osteoarthritis of the bilateral shoulders. There is no demonstrated abnormality of the visualized soft tissue structures of the upper abdomen. RAD/Chest PA and Lateral IMPRESSION: No change or acute chest disease. Electronically Signed: Max Mcintosh MD at 20:06 EDT , Service support ,
[2018-11-23 20:03] LABS: ALB/GLOB Ratio 1.3 RATIO (0.9-2.4); AST(SGOT) 103 U/L (15-37); Alanine Aminotransfer ALT/SGPT 161 U/L (16-61); Albumin, Serum 3.5 g/dL (3.2-5.0); Alkaline Phosphatase 72 U/L (45-117); Anion Gap 8 (5-15); BUN 15 mg/dL (7-18); BUN/Creat Ratio 9.1 RATIO (10-20); Calcium,Total 8.7 mg/dL (8.5-10.1); Chloride 110 mmol/L (98-107); Creatinine, Serum 1.64 mg/dL (0.70-1.30); EST Glomerular Filtration Rate 45 mL/min (>60); Est Glom Filt Rate - Afr Amer 54 mL/min (>60); Estimated Creatinine Clearance 45.75 ml/min; Globulin 2.7 g/dL (2.2-4.2); Glucose 136 mg/dL (74-106); Protein, Total 6.2 g/dL (6.4-8.2); Sodium Level 139 mmol/L (136-145)
[2018-11-23 20:53] VITALS: BP 178/85; PULSE 63; RESP 15; O2SAT 94
[2018-11-23 20:57] LABS: Absolute Lymphocyte Count 1.94 X10^3/ul (0.83-4.51); Absolute Neutrophil Count 3.1 X10^3/uL (2.0-7.7); Basophil# 0.01 X10^3/uL; Basophil% 0.2 % (0-1); Eosinophil# 0.28 X10^3/uL; Eosinophils% 4.7 % (0-5); Hematocrit 40.3 % (40-54); Hemoglobin 13.3 g/dl (13.0-16.5); Lymphocyte # 1.94 X10^3/ul (4.0); Lymphocyte % 32.8 % (19-41); Mean Corpuscular Hgb 29.2 pg (27.0-32.0); Mean Corpuscular Volume 88.6 fL (80-94); Mean Platelet Vol. 11.3 fl (6.2-12.0); Monocyte# 0.55 X10^3/uL; Monocyte% 9.3 % (0-10); Neutrophil # 3.12 X10^3/uL (2.7-7.7); Neutrophil % 52.8 % (47-70); Platelet Count 134 K/mm3 (150-450); RBC Distribution Width CV 13.3 % (11.6-14.6); Red Blood Count 4.55 M/mm3 (4.6-6.2); White Blood Count 5.9 K/mm3 (4.4-11.0)
[2018-11-23 21:01] LABS: POSITIVE COUNT NO; POSITIVE DIFFERENTIAL NO; POSITIVE MORPHOLOGY NO
--- NOTE | 2018-11-23 22:03 | ED.DCSUM_ITS ---
- ER Visit Summary Date of Service: 11/23/18 Chief Complaint: Nausea, vomiting, and dizziness History of Present Illness: The patient is a 67 M who presents with nausea, vomiting, dizziness that has been getting worse over the past few days. Patient admits to some wheezing. Patient states he was recently diagnosed with a urinary tract infection. Patient states he has not been taking his antibiotic as prescribed. Patient states he was told to take his antibiotic in between his doses of his transplant medications. Patient states he is having difficulty remembering to take his antibiotic at those times. Patient states he did fall earlier today after tripping on carpet. Patient denies any head injury or loss of consciousness with the fall. Physical Examination: Vital signs are stable. Patient is afebrile. Patient is in no acute distress. Oral mucosa is pink and moist. Neck is supple. Trachea is midline. There is no JVD noted. Heart was regular rate and rhythm. Lungs are clear and equal bilateral. Abdomen is soft. Bowel sounds are normal. There is no tenderness. Cranial nerves II through XII are intact. There are no focal motor or sensory deficits noted. Extremities are intact. There is no pitting edema of the lower extremities bilaterally. There is no calf tenderness. Test Results: PA and lateral chest x-ray does not show any acute cardiopulmonary process. EKG showed normal sinus rhythm with a rate of 58. There are no acute ST or T wave changes. CBC was normal. Comprehensive metabolic profile showed a slightly elevated creatinine of 1.64. This is chronic for the patient. Troponin was 0.031. Emergency Department Course and Treatment: Patient felt better on reevaluation. Patient wants to go home. Patient was instructed to set alarms to take his antibiotic between the doses of his transplant medications. Patient and his understood and were agreeable with the plan. All questions were answered. Disposition: Discharge home Impression: Urinary tract infection This note was generated with [employer] dictation software. It may contain incorrect words, spelling, and punctuation that were not noted in review of the chart prior to signing ED Disposition - Plan for ED Patient: Disposition: Home or Assisted Living Diagnosis: Urinary tract infection, General weakness Instructions: ED UTI Cystitis Male Referrals: Shanelle Luz DO [Primary Care Provider] - 5-7 Days
== END 2018-11-23 23:45 | disposition home or self-care (01) ==
PROVIDERS: Emergency Provider Emergency Medicine; Family Provider Internal Medicine; PCP Internal Medicine
DX: N39.0 Urinary tract infection, site not specified (principal); E66.9 Obesity, unspecified; Z94.0 Kidney transplant status; Z94.4 Liver transplant status
CPT/HCPCS: 71046; 80053; 84484; 85025; 93005; 99283; A4216

== ENCOUNTER 2018-11-27 13:30 | Outpatient (RCR) | payer OTHER, SELFPAY ==
--- NOTE | 2018-06-06 14:15 | HP.PTEVAL ---
Patient's Visit Information TOM GALLAGHER is a 67 year old M referred to Physical Therapy by Mason Beckman with a diagnosis of SI joint pain. Date of Evaluation: 06/06/18 Physical Therapist: Claude Valle PT, - Visit Plan Frequency: 2-3x /Week Duration: 4-6 Weeks Plan: Postural edu, core stab ex's, LE strengthening, nustep, and HEP - Subjective Subjective: Pt reports a chronic Hx of LBP for over 6 years. Pt reports he had organ replacements and had to lye in a hospital bed for 77 days. Pt reports pain ever since. Pt notes he has had PT and pain management over that time, and believes this will just always be an on going fight. Pt reports he has been gaining weight for a while, even though he is not eating anything. Pt reports he is limited a lot with ADL's and IADL's secondary to his LBP. Pt reports no T or N in LE's, but does note an occasional hypersensitivity on lateral R foot. Pt has sleep diff secondary to pain. 0/10 at rest, 8/10 at worst (walking) - Pain SI joint pain Pain Intensity (Out of 10): 0 Pain Intensity Range: 8 - Objective Neuro: B LE sensation is WNL to light touch with exception of R S1 dermatone which is hyposensitive. ROM: Pt is severely limited in all planes due to pain. MMT: B LE's 5/5 throughout. Gait: Pt was able to ambulate 300' until having to rest secondary to pain in hips - Goals Goal 1:: Decrease LBP x 50% to aid with sleep Goal Time Frame: 4-6 Weeks Goal 2:: Increase core stability x 1 grade to allow pt to be able to ambulate further without pain Goal Time Frame: 4-6 Weeks Goal 3:: Pt will be able to ambulate greater than 700' until being limited from pain Goal Time Frame: 4-6 Weeks Goal 4:: I with HEP Goal Time Frame: 4-6 Weeks - Rehabilitation Potential Physical Therapy Diagnosis: Pt has generalized LBP, intolerance for prolonged gait, and limited sleep secondary to deg changes in his L/S Rehabilitation Potential: Good - Anticipated Interventions Patient/Client Instruction: Educate patient on: Condition, Plan of Care For the Purpose of:: To improve self management Therapeutic Exercise to Include: Strength training, Endurance training, Body mechanics, Postural training, Gait and locomotor training, Dynamic Lumbar Stabilization For the Purpose of:: To decrease pain, To increase ROM, To improve muscle performance and motor function Thermo therapy (hot pack): Yes For the Purpose of:: To decrease pain Thank you for the opportunity to evaluate your patient. For Medicare and Medicare HMO plans, please review the plan of care and approve it. It will need to be FAXED BACK to us at [phone] for Medicare purposes. Please let me know if there are questions or concerns regarding this plan of care. Physician Signature: Date:
--- NOTE | 2018-10-30 14:28 | HP.PTREVAL ---
Mason Beckman MD, It has been my pleasure to treat TOM GALLAGHER over the last 10 visits for SI joint pain. Please see the progress note below for an update on the physical therapy plan of care! Subjective: Pt is really sore this date Objective/Function: LBP is currently rated at 4/10. core stability relatively unchanged at this time. Pt is able to ambulate 260 feet until feeling pain and needing to rest. Pt is progressing but needs further skilled PT to decrease pain and increase core stability Plan Plan: Attempt to get 12 more visits approved at this time Goals Goal 1:: Decrease LBP x 50% to aid with sleep Goal Time Frame: 4-6 Weeks Goal Progress: Progressing Goal 2:: Increase core stability x 1 grade to allow pt to be able to ambulate further without pain Goal Time Frame: 4-6 Weeks Goal Progress: Progressing Goal 3:: Pt will be able to ambulate greater than 700' until being limited from pain Goal Time Frame: 4-6 Weeks Goal Progress: Progressing Goal 4:: I with HEP Goal Time Frame: 4-6 Weeks Goal Progress: Progressing Anticipated Interventions Patient/Client Instruction: Educate patient on: Condition, Plan of Care For the Purpose of:: To improve self management Therapeutic Exercise to Include: Strength training, Endurance training, Body mechanics, Postural training, Gait and locomotor training, Dynamic Lumbar Stabilization For the Purpose of:: To decrease pain, To increase ROM, To improve muscle performance and motor function Thermo therapy (hot pack): Yes For the Purpose of:: To decrease pain Please do not hesitate to contact me at [phone] by phone or if you have questions or concerns regarding this new plan of care! Sincerely, Claude Valle, PT, ATC
--- NOTE | 2018-12-07 09:04 | HP.PT.NRP ---
HP - Discharge Summary (1) - Patient Information TOM GALLAGHER was seen in my office for initial evaluation on 06/06/18. The following Plan of Care was established for this patient: Initial Frequency: 2-3x /Week Initial Duration: 4-6 Weeks - Anticipated Interventions Patient/Client Instruction: Educate patient on: Condition, Plan of Care For the Purpose of:: To improve self management Therapeutic Exercise to Include: Strength training, Endurance training, Body mechanics, Postural training, Gait and locomotor training, Dynamic Lumbar Stabilization For the Purpose of:: To decrease pain, To increase ROM, To improve muscle performance and motor function Thermo therapy (hot pack): Yes For the Purpose of:: To decrease pain This patient was last seen in our office . Pertinent comments regarding their Physical therapy will appear below: Care is being tranferred to a new V#. At this point I will be discontinuing this patient from physical therapy. I would be happy to see this patient again in the future if found appropriate by the physician. Thank you! Claude Valle, PT, ATC
== END 2018-11-27 19:00 | disposition home or self-care (01) ==
LOC: PT 13:30
PROVIDERS: Family Provider Internal Medicine; PCP Internal Medicine; Referring Provider Anesthesiology Pain Medicine; Visit Provider Anesthesiology Pain Medicine
DX: M54.9 Dorsalgia, unspecified (principal); M53.3 Sacrococcygeal disorders, not elsewhere classified
CPT/HCPCS: 97110; 97162; 97530

== ENCOUNTER 2019-02-13 10:30 | Outpatient (RCR) | payer OTHER, SELFPAY ==
--- NOTE | 2019-01-23 15:07 | HP.PTREVAL ---
Mason Beckman MD, It has been my pleasure to treat TOM GALLAGHER over the last 22 visits for SI Joint pain. Please see the progress note below for an update on the physical therapy plan of care! Subjective: I am really sore today Objective/Function: LBP still at 6/10 and is limiting. Pt is able to ambulate 340 feet until needing to sit down and rest. Pt is still very limited with sleep and ADL's secondary to pain Plan Plan: attempt to get 10 more visits to aid with decreasing pain and increasing core strength Goals Goal 1:: Decrease LBP x 50% to aid with sleep Goal Time Frame: 4-6 Weeks Goal Progress: Progressing Goal 2:: Increase core stability x 1 grade to aid with increasing pt's tolerance for ambulation Goal Time Frame: 4-6 Weeks Goal Progress: Progressing Goal 3:: Pt will be able to ambulate greater than 700' until being limited from pain Goal Time Frame: 4-6 Weeks Goal Progress: Progressing Goal 4:: I with HEP Goal Time Frame: 4-6 Weeks Anticipated Interventions Patient/Client Instruction: Educate patient on: Condition, Plan of Care For the Purpose of:: To improve self management Therapeutic Exercise to Include: Strength training, Body mechanics, Postural training, Flexibilty training, Gait and locomotor training, Dynamic Lumbar Stabilization For the Purpose of:: To decrease pain, To improve muscle performance and motor function, To improve ability to perform ADL's Thermo therapy (hot pack): Yes For the Purpose of:: To decrease pain Please do not hesitate to contact me at [phone] by phone or if you have questions or concerns regarding this new plan of care! Sincerely, Claude Valle, PT, ATC
--- NOTE | 2019-05-28 11:47 | HP.PT.NRP ---
HP - Discharge Summary (1) - Patient Information TOM GALLAGHER was seen in my office for initial evaluation on . The following Plan of Care was established for this patient: - Anticipated Interventions Patient/Client Instruction: Educate patient on: Condition, Plan of Care For the Purpose of:: To improve self management Therapeutic Exercise to Include: Strength training, Body mechanics, Postural training, Flexibilty training, Gait and locomotor training, Dynamic Lumbar Stabilization For the Purpose of:: To decrease pain, To improve muscle performance and motor function, To improve ability to perform ADL's Thermo therapy (hot pack): Yes For the Purpose of:: To decrease pain This patient was last seen in our office . Pertinent comments regarding their Physical therapy will appear below: Pt was last treated on the date of 02/13/19 for his LBP. Pt has not returned throughtodays date and is therefore discontinued at this time. At this point I will be discontinuing this patient from physical therapy. I would be happy to see this patient again in the future if found appropriate by the physician. Thank you! Claude Valle, PT, ATC
== END 2019-02-13 19:00 | disposition home or self-care (01) ==
LOC: PT 10:30
PROVIDERS: Family Provider Internal Medicine; PCP Internal Medicine; Visit Provider Anesthesiology Pain Medicine
DX: M54.9 Dorsalgia, unspecified (principal); M53.3 Sacrococcygeal disorders, not elsewhere classified
CPT/HCPCS: 97110; 97530

== ENCOUNTER 2019-02-25 13:03 | Outpatient (RCR) | payer OTHER, SELFPAY ==
[2019-01-15 10:52] VITALS: BMI 46.5
== END 2019-03-03 23:59 ==
LOC: NS 13:03
PROVIDERS: Family Provider Internal Medicine; PCP Internal Medicine; Visit Provider Internal Medicine
DX: E66.01 Morbid (severe) obesity due to excess calories (principal); Z68.42 Body mass index [BMI] 45.0-49.9, adult; R94.5 Abnormal results of liver function studies; Z71.3 Dietary counseling and surveillance
CPT/HCPCS: 97803

== ENCOUNTER 2019-03-25 09:30 | Outpatient (RCR) | payer OTHER, SELFPAY ==
[2019-01-15 10:52] VITALS: BMI 46.5
== END 2019-04-03 23:59 ==
LOC: NS 09:30
PROVIDERS: Family Provider Internal Medicine; PCP Internal Medicine; Visit Provider Internal Medicine
DX: E66.01 Morbid (severe) obesity due to excess calories (principal); Z68.42 Body mass index [BMI] 45.0-49.9, adult; R94.5 Abnormal results of liver function studies; E11.9 Type 2 diabetes mellitus without complications; Z71.3 Dietary counseling and surveillance
CPT/HCPCS: 97803

== ENCOUNTER 2019-04-23 13:00 | Outpatient (RCR) | payer OTHER, SELFPAY ==
[2019-01-15 10:52] VITALS: BMI 46.5
== END 2019-05-04 23:59 ==
LOC: NS 13:00
PROVIDERS: Family Provider Internal Medicine; PCP Internal Medicine; Visit Provider Internal Medicine
DX: E66.01 Morbid (severe) obesity due to excess calories (principal); Z68.42 Body mass index [BMI] 45.0-49.9, adult; R94.5 Abnormal results of liver function studies; E11.9 Type 2 diabetes mellitus without complications; Z71.3 Dietary counseling and surveillance
CPT/HCPCS: 97803

== ENCOUNTER → 2019-05-15 14:24 | Outpatient (CLI) | payer OTHER, SELFPAY ==
[2019-01-15 10:52] VITALS: BMI 46.5
--- NOTE | 2019-05-15 14:52 | RAD_ITS ---
STUDY: X-RAY - PELVIS AND RIGHT HIP REASON FOR EXAM: Male, 68 years old. Right hip pain TECHNIQUE: 4 views of the pelvis and hip. COMPARISON: None. FINDINGS: There is a non-specific bowel gas pattern. Normal visualized soft tissue structures. There are degenerative changes of the lower lumbar spine. There are vascular calcifications. Multiple surgical clips which are likely vascular. There is bilateral acetabular spurring right greater than left. The joint spaces preserved. There are no acute fractures. The bone mineralization is preserved.. RAD/HIP, UNI W/ Pelvis 2-3 Views IMPRESSION: Degenerative changes both hips right greater than left Significant spondylosis lower lumbar spine Multiple surgical clips which are likely vascular Electronically Signed: Og Vickers, at 8:10 EDT Tel , Service support ,
== END ==
PROVIDERS: Family Provider Internal Medicine; PCP Internal Medicine; Referring Provider Anesthesiology Pain Medicine; Visit Provider Anesthesiology Pain Medicine
DX: M25.551 Pain in right hip (principal)
CPT/HCPCS: 73502

== ENCOUNTER → 2019-06-20 11:07 | Outpatient (CLI) | payer OTHER, SELFPAY ==
[2019-01-15 10:52] VITALS: BMI 46.5
--- NOTE | 2019-06-20 11:21 | MRI_ITS ---
STUDY: MRI LUMBAR SPINE WITHOUT CONTRAST REASON FOR EXAM: Male, 68 years old. Back pain radiating to the hips. TECHNIQUE: Standardized fat and water weighted pulse sequences were obtained in the sagittal and axial planes. COMPARISON: 10/03/2018. FINDINGS: Lumbar lordosis preserved. Levoscoliosis. Conus medullaris terminates normally at the T12-L1 level. No acute fracture, dislocation or osseous destruction. Paraspinal muscle atrophy. Normal aorta. Nonvisualized right kidney. Low-lying left kidney. T12-L1: Normal endplates. Normal disc height, hydration and morphology. Normal bilateral facet joints. Normal central canal and bilateral lateral recesses. Normal bilateral intervertebral neural foramina. L1-2: Normal endplates. Disc desiccation. Normal bilateral facet joints. Normal central canal and bilateral lateral recesses. Normal bilateral intervertebral neural foramina. L2-3: Normal endplates. Disc bulge, additional left foraminal tiny protrusion (sagittal image 5 and axial image 19) without central canal narrowing. Facet joint arthrosis. Normal central canal and bilateral lateral recesses. Left neural foraminal narrowing with impingement. L3-4: Moderate endplate spondylosis. Disc bulge with tiny central cranial extrusion (sagittal image 10 series 2) with moderate/severe central canal narrowing. Facet joint arthrosis. Bilateral lateral recess narrowing with impingement. Bilateral neural foraminal narrowing with nerve root contact. L4-5: Normal endplates. Disc bulge, prominent centrally, with mild central canal narrowing. Facet joint arthrosis. Mild lateral recess narrowing without impingement. Right neural foraminal narrowing with impingement. L5-S1: Normal endplates. Minimal disc desiccation. Facet joint arthrosis. Normal central canal and bilateral lateral recesses. Normal bilateral intervertebral neural foramina. Right unilateral nondisplaced pars defect. MRI/Spine Lumbar (Routine) IMPRESSION: Multilevel intervertebral disc disease with central canal narrowing most severe at L3-4 Multilevel neuroforaminal narrowing with impingement of the left L2, bilateral L3 and right L4 nerve roots Bilateral lateral recess narrowing at L3-4 with impingement of the bilateral descending L4 nerve roots Levoscoliosis with osteoarthritis predominating at L3-4 L5 right unilateral pars defect without spondylolisthesis Electronically Signed: Robert Javier DO at 8:55 EDT Tel , Service support ,
== END ==
PROVIDERS: Family Provider Internal Medicine; PCP Internal Medicine; Referring Provider Anesthesiology Pain Medicine; Visit Provider Anesthesiology Pain Medicine
DX: M54.9 Dorsalgia, unspecified (principal); M79.606 Pain in leg, unspecified
CPT/HCPCS: 72148

== ENCOUNTER 2019-09-24 11:00 | Outpatient (RCR) | payer OTHER, SELFPAY ==
[2019-01-15 10:52] VITALS: BMI 46.5
== END 2019-09-24 23:59 | disposition home or self-care (01) ==
LOC: NS 11:00
PROVIDERS: Family Provider Internal Medicine; PCP Internal Medicine; Visit Provider Internal Medicine
DX: Z71.3 Dietary counseling and surveillance (principal); E66.01 Morbid (severe) obesity due to excess calories; Z68.42 Body mass index [BMI] 45.0-49.9, adult; R94.5 Abnormal results of liver function studies; E11.9 Type 2 diabetes mellitus without complications
CPT/HCPCS: 97803

== ENCOUNTER 2019-11-07 12:00 | Outpatient (RCR) | payer OTHER, SELFPAY ==
[2019-09-18 08:36] VITALS: BMI 49.1
--- NOTE | 2019-10-15 11:01 | HP.PTEVAL_ITS ---
Patient's Visit Information TOM GALLAGHER is a 68 year old M referred to Physical Therapy by Dr. Mason Beckman MD with a diagnosis of LBP. Date of Evaluation: 10/15/19 Physical Therapist: Robert Ornelas, LEONORAT, OCS, CSCS - Visit Plan Frequency: 2x /Week Duration: 4-6 Weeks Plan: 2x/week for 4-6 weeks for pool based ex to work to I. Focus on LB ROM, HS adn glut and quad stretching and core adn LE /postural strength/calorie burning - Subjective Findings: Liver kidney transplant 8 yrs ago and back /butt has hurt since. Currently it is butt pain deep in there. Can't climb steps. Can't get in camper and that is frustrating. Couldn't help son flip house. this is really limiting his life. Says leg doesn't hurt. Flash of pain into leg now and then. Taking oxycodone and took 3 this morning. Has had numerous treatments in therapy and injections. Won't do injections again for three months. Has not seen ortho for back. Shot in SI helps when he is really bad. Pain is 3/10 walking, lifting box on porch is 9/10. Sitting is 3/10 Better with ant pelvic tilt. Lying flat on back is painfree. Sleep is OK with pill 6 hours. Basic ADLS are getting done at home, socks on really hurts. Cook and clean done by . Does very little throughout day except phone and computer adn TV, can sit in swivel chair at computer up tall and needs to move around. - Pain butt pain. Pain Intensity (Out of 10): 3 Pain Intensity Range: 3, 10 - Objective Walks slow and steady with wide MIMI, short steps adn labored to stand. I gait and chair transfers. Good balance. Transfer table I. L/S multi segmental aROM ext min limtiations with increased pain, flexion min limitations, SB min limitations. Tender to palpation in gluts max and trochanter area max B. Flexibility: HS -30 90/90 test adn painful, quads mod tight, gastroc mod tight to 0 DF. Sensation WNL to gross light touch LE. reflexes 0/3 B patella and achilles. - slump and - SLR test. ROM hip limited by tightness and painful to push into tissue stretch posterior tissue. - Goals Goal 1:: Walk and transfer without evidence of increased pain Goal Time Frame: 4-6 Weeks Goal 2:: Patient feel 50% better in LBP to 4/10 at worst adn manageable Goal Time Frame: 4-6 Weeks Goal 3:: Pt I in appropriate water ex to minimize future problems(willing to workout at [facility]) Goal Time Frame: 4-6 Weeks Goal 4:: <40% disability LEFS. Goal Time Frame: 4-6 Weeks - Rehabilitation Potential Physical Therapy Diagnosis: LBP, likely degenerative in nature, [id number]. Rehabilitation Potential: Fair - Anticipated Interventions Patient/Client Instruction: Educate patient on: Condition, Plan of Care For the Purpose of:: To decrease pain, To increase ROM, To increase tolerance to activity/condition/position, To improve gait and locomotor functions Therapeutic Exercise to Include: Strength training, Postural training, Flexibilty training, Gait and locomotor training, In an aquatic setting, Passive ROM, Active ROM, Dynamic Lumbar Stabilization For the Purpose of:: To decrease pain, To improve muscle performance and motor function, To increase tolerance to activity/condition/position, To improve ability of physical actions for home/community/work/leisure Thank you for the opportunity to evaluate your patient. For Medicare and Medicare HMO plans, please review the plan of care and approve it. It will need to be FAXED BACK to us at [phone] for Medicare purposes. For Medicare only, by signing this I certify the plan of care. Please let me know if there are questions or concerns regarding this plan of care. Physician Signature: Date:
--- NOTE | 2019-12-26 11:54 | HP.PT.NRP ---
TOM GALLAGHER was seen in my office for initial evaluation on 10/15/19. The following Plan of Care was established for this patient: Initial Frequency: 2x /Week Initial Duration: 4-6 Weeks Patient/Client Instruction: Educate patient on: Condition, Plan of Care For the Purpose of:: To decrease pain, To increase ROM, To increase tolerance to activity/condition/position, To improve gait and locomotor functions Therapeutic Exercise to Include: Strength training, Postural training, Flexibilty training, Gait and locomotor training, In an aquatic setting, Passive ROM, Active ROM, Dynamic Lumbar Stabilization For the Purpose of:: To decrease pain, To improve muscle performance and motor function, To increase tolerance to activity/condition/position, To improve ability of physical actions for home/community/work/leisure This patient was last seen in our office 11/07/19. Pertinent comments regarding their Physical therapy will appear below: Pt seen 7 visits of aquatic plan. Cancelled the last two due to leg hurting and said he would call to reschedule as needed. at this point, it has been over 6 weeks and I will discontinue due to nonattendance. At this point I will be discontinuing this patient from physical therapy. I would be happy to see this patient again in the future if found appropriate by the physician. Thank you! Robert Ornelas, DPT, OCS, CSCS
== END 2019-11-07 19:00 | disposition home or self-care (01) ==
LOC: PT 12:00
PROVIDERS: PCP Internal Medicine; Referring Provider Anesthesiology Pain Medicine; Visit Provider Anesthesiology Pain Medicine
DX: M54.9 Dorsalgia, unspecified (principal); M79.606 Pain in leg, unspecified
CPT/HCPCS: 97113; 97162

== ENCOUNTER → 2020-03-04 18:16 | Outpatient (CLI) | payer OTHER, SELFPAY ==
[2019-12-20 11:04] VITALS: BMI 48.9
[2020-03-04 19:27] LABS: Amphetamine Urine VISTA NEGATIVE (<1000 ng/mL); Barbiturate Urine VISTA NEGATIVE (< 200 ng/mL); Benzodiazepine Urine VISTA NEGATIVE (< 200 ng/mL); Cocaine Urine VISTA NEGATIVE (< 300 ng/mL); Ecstacy Urine VISTA NEGATIVE (< 500 ng/mL); Methadone Urine VISTA NEGATIVE (< 300 ng/mL); PCP Urine VISTA NEGATIVE (< 25 ng/mL); THC Urine VISTA NEGATIVE (< 50 ng/mL); Vista UDS pH Range 5
== END ==
PROVIDERS: PCP Internal Medicine; Visit Provider Anesthesiology Pain Medicine
DX: F11.20 Opioid dependence, uncomplicated (principal)
CPT/HCPCS: 80307

== ENCOUNTER 2020-03-29 12:55 | Inpatient (IN) | payer OTHER, MEDICARE, SELFPAY ==
[2019-12-20 11:04] VITALS: BMI 48.9
[2020-03-29] VITALS (11 sets, daily range): BP systolic 125–245; BP diastolic 74–126; PULSE 52–75; RESP 13–18; TEMP 36.7–36.9; O2SAT 95–99; BMI 45.9; BMI 44.7
--- NOTE | 2020-03-29 13:11 | EKG12_ITS ---
Test Reason : CP Blood Pressure : / mmHG Vent. Rate : 053 BPM Atrial Rate : 053 BPM P-R Int : 196 ms QRS Dur : 102 ms QT Int : 422 ms P-R-T Axes : 082 -40 -33 degrees QTc Int : 395 ms Sinus bradycardia Left axis deviation ST & T wave abnormality, consider inferior ischemia Abnormal ECG Confirmed by KATHERINE RUSSELL, SHAUN ([id number]), commercial production editor LESTER EMERSON ([id number] on 03/30/2020 1:17:48 PM Referred By: WINSOME Confirmed By:SHAUN MURPHY MD
--- NOTE | 2020-03-29 13:17 | ED.VIS.CHEST ---
History of Present Illness Informant: Patient, Spouse/S.O., EMS Onset: Today Activity at onset: Rest Timing: Continuous Quality: Tightness Location: Substernal Current Severity: Moderate Maximum Severity: Severe Worsened By: Nothing Relieved By: Nothing Associated Symptoms: Negative for: Nausea, Vomiting, Diaphoresis, Dyspnea, Cough, Fever, Lightheadedness, Acid Reflux, Palpitations Narrative: 69-year-old male history of liver and kidney transplant in 2011 presents to the emergency department with chest pain. He states he was sitting in his chair 1 hour prior to arrival and began to have chest pain. It is a tightness in the center of his chest. It is constant. He states nothing makes it better or worse. It does not radiate. He is not lightheaded or dizzy. Denies nausea vomiting or diaphoresis. Denies abdominal pain or back pain. Denies vomiting. Denies diarrhea. Denies recent travel or surgery. Denies history of DVT or PE. He is not anticoagulated. No history of coronary disease. Last stress test and echocardiogram was 2 years ago. Had his losartan increased from 50 to 100 mg about 3 months ago. Prior Similar Symptoms: No Recent Illness/Hospitalization: No CVD Risk Factors: Hypertension, Hypercholesterolemia. Negative for: Diabetes, Family History 1' </=55, Smoking PE Risk Factors: Negative for: Recent Travel/Surgery, Recenet Immobilization, Prior DVT or PE, Cancer, OCP + Smoking + >/=35 <Ryan Francois - Last Filed: 03/29/20 17:51> <Kev May - Last Filed: 03/31/20 13:30> Chief Complaint: Chest Pain Past Medical History Prior records reviewed: Yes Past Medical History: - - Hypertension, hyperlipidemia, liver and kidney transplant Surgical History: - - Renal and Liver Transplant, L TKR, R TKR, L wrist carpal tunnel release, Hernia repair with mesh, Cholecystectomy. Lives: With Family Smoking Status: Never smoker Alcohol: None Drugs: None - Family History Maternal Family History: Family History (Last Reviewed 03/29/20 @ 17:[address] Savi Sarmiento MD) Other PGM diabetes Family History: Reports: No pertinent history Paternal Family History: Family History (Last Reviewed 03/29/20 @ 17:[address] Savi Sarmiento MD) Other PGM diabetes Family History: Reports: Heart Disease, Hypertension <Ryan Francois - Last Filed: 03/29/20 17:51> - Family History Maternal Family History: Family History (Last Reviewed 03/29/20 @ 17:[address] Savi Sarmiento MD) Other PGM diabetes Paternal Family History: Family History (Last Reviewed 03/29/20 @ 17:[address] Savi Sarmiento MD) Other PGM diabetes <May,Kve - Last Filed: 03/31/20 13:30> - Allergies and Home Meds Allergies/Adverse Reactions: Allergies morphine Allergy (Intermediate, Verified 11/23/18 17:30) Unknown DID NOT WORK, GOT WORSE metformin Allergy (Verified 11/23/18 17:30) Other pregabalin [From Lyrica] Allergy (Verified 11/23/18 17:30) Other TREMORS Review of Systems All systems negative except as indicated General: Denies: Chills, Fever, Sweats Eyes: Denies: Visual changes - bilaterally, Blurred Vision - bilaterally, Diplopia ENT: Denies: Rhinorrhea, Sore throat Cardiovascular: Reports: Chest pain. Denies: Palpitations, Heart racing Respiratory: Denies: Dyspnea, Cough, Dyspnea on exertion Gastrointestinal: Denies: Abdominal pain, Nausea, Vomiting, Diarrhea, Melena, Hematochezia Genitourinary: Denies: Dysuria, Hematuria, Frequency Musculoskeletal: Denies: Back pain, Swelling, Extremity Pain Skin: Denies: Rash, Wounds Neurological: Denies: Headache, Weakness, Numbness <Ryan Francois - Last Filed: 03/29/20 17:51> Physical Exam Vital Signs/Narrative: Vital Signs Temp Pulse Resp BP Pulse Ox 03/29/20 12:56 98.5 F 52 L 13 245/126 H 99 Inital Vital Signs reviewed: Yes General: Well nourished, Well developed, No Acute Distress Head: Normocephalic, Atraumatic Eyes: Perrl, EOMI ENT: Moist mucous membranes, No rhinorrhea Neck: Supple, Nontender Cardiovascular: Regular rate, Regular rhythm, No murmurs Respiratory: No distress, CTA bilaterally, Chest nontender Abdomen: Soft, Nontender, Nondistended, Normal bowel sounds Back: Nontender, Normal Inspection Extremities: Nontender, No edema Skin: Normal color, No rash Neurological: Alert, Oriented x3, Cranial nerves II-XII grossly intact, Normal Strength, Normal Sensation Psychological: Normal affect, Normal Mood <Ryan Francois - Last Filed: 03/29/20 17:51> Diagnostic/Tx/Re-eval Chest X-Ray - ED: 1 View, Read by ED Physician, Read by Radiologist, No Acute Disease Impressions Chest X-Ray 03/29/20 13:53 IMPRESSION: No acute thoracic pathology. Electronically Signed: Michael Machado, at 15:06 EDT Tel , Service support , 03/29/20 13:53 Chest 1 View (Portable) [RAD] Stat Laboratory Results 03/29/20 03/29/20 03/29/20 13:35 13:35 16:10 WBC 6.5 RBC 4.67 Hgb 13.8 Hct 41.5 MCV 88.9 MCH 29.6 MCHC 33.3 RDW Std Deviation 43.6 RDW Coeff of Leonie 13.8 Plt Count 135 L MPV 10.3 Immature Gran % (Auto) 0.500 Neut % (Auto) 52.3 Lymph % (Auto) 36.4 Greenlee % (Auto) 7.4 Eos % (Auto) 3.2 Baso % (Auto) 0.2 Absolute Neuts (auto) 3.4 Absolute Lymphs (auto) 2.36 Nucleated RBC % 0 Sodium 143 Potassium 3.8 Chloride 111 H Carbon Dioxide 27.0 Anion Gap 5 BUN 24 H Creatinine 1.57 H Estim Creat Clear Calc 46.50 Est GFR (MDRD) Af Amer 57 L Est GFR (MDRD) Non-Af 47 L BUN/Creatinine Ratio 15.3 Glucose 147 H Calcium 8.8 Troponin I 0.091 H 0.647 H* - Rhythm Strip Rhythm Strip: Sinus Rhythm Rate: 52 Ectopy: None - EKG Initial EKG Interpretation: Sinus Rhythm, No Acute Injury Pattern Prior: Unchanged Follow-up EKG Interpretation: Sinus Rhythm, No Acute Injury Pattern Prior: Unchanged Treatment: Aspirin, Morphine Repeat Eval: Pain Free RUPERT Risk: Age >/= 65, >/= 3RF, ASA within 7 days, Elevated Enzymes Score: 4 - Medical Decision Making Patient had been given aspirin by squad therefore none given on arrival. He was chest pain-free on arrival. EKG was sinus rhythm without signs of acute ischemic change and unchanged from previous EKG. Blood pressure was substantially elevated on arrival he does have a history of poorly controlled blood pressure he states he did take his blood pressure medications this morning however due to his blood pressure we did give him a dose of 10 mg of IV hydralazine. Patient's laboratory work-up including CBC BMP unremarkable. Troponin was 0.091. Chest x-ray was unremarkable. Repeat exam blood pressure is improved to 155/82. Patient is chest pain-free. Repeat troponin resulted at 0.6, elevated from his initial at 0.09. Repeat EKG was unchanged no signs of ischemia. He remains chest pain-free however he will require admission for further treatment and evaluation. Spoke with the hospitalist who requested I speak with cardiology. Awaiting return call <Ryan Francois - Last Filed: 03/29/20 17:51> - Medical Decision Making An independent history and physical examination was performed by me. Patient presents with midsternal chest tightness that started 1 hour prior to presentation. Patient states he was sitting. He denies any alleviating or exacerbating factors. He does have risk factors for coronary artery disease. EKG, chest x-ray and appropriate blood work was obtained. EKG does not reveal acute ischemic changes. First troponin is elevated at 0.09 which is indeterminate. 3-hour troponin was obtained and is abnormal at 0.6. Patient did receive aspirin prior to arrival. Patient at the time of disposition was pain-free. Case will be discussed with star route mail driver and admitted to hospitalist Vital signs noted. HEENT exam is unremarkable. Lungs are clear to auscultation. Heart is regular murmur, gallop or rub. Abdomen is soft and nontender. There is no asymmetry, swelling, discoloration, leg vein distention, palpable cords or tenderness along the distribution of the deep venous system. Neuro exam is nonfocal. Critical care time (excluding procedures): Discussing w/Patient &/or Family/Slot Manager - Included time of documentation of history and physical, supervision of PA, interpretation of lab results and discussion with hospitalist and star route mail driver for admission. <MayKev - Last Filed: 03/31/20 13:30> ED Disposition <Ryan Francois - Last Filed: 03/29/20 17:51> <Kev May - Last Filed: 03/31/20 13:30> - Plan for ED Patient: Disposition: Acute Care Hospital [facility] Diagnosis: Chest pain, Elevated troponin, Essential (primary) hypertension, Kidney transplant recipient, Liver transplant recipient, History of CVA (cerebrovascular accident), Acute coronary syndrome with high troponin
[2020-03-29 13:43] LABS: Absolute Lymphocyte Count 2.36 X10^3/uL (0.83-4.51); Absolute Neutrophil Count 3.4 X10^3/uL (2.0-7.7); Basophil# 0.01 X10^3/uL; Basophil% 0.2 % (0-1); Eosinophil# 0.21 X10^3/uL; Eosinophils% 3.2 % (0-5); Hematocrit 41.5 % (40-54); Hemoglobin 13.8 g/dL (13.0-16.5); Lymphocyte # 2.36 X10^3/ul (4.0); Lymphocyte % 36.4 % (19-41); Mean Corp Hgb Conc 33.3 g/dL (32-36); Mean Corpuscular Hgb 29.6 pg (27.0-32.0); Mean Corpuscular Volume 88.9 fL (80-94); Mean Platelet Vol. 10.3 fl (6.2-12.0); Monocyte# 0.48 X10^3/uL; Monocyte% 7.4 % (0-10); NRBC Flagged by Analyzer 0 % (0-5); Neutrophil % 52.3 % (47-70); Platelet Count 135 K/mm3 (150-450); RBC Distribution Width CV 13.8 % (11.6-14.6); RBC Distribution Width SD 43.6 fl (35.1-43.9); Red Blood Count 4.67 M/mm3 (4.6-6.2); White Blood Count 6.5 K/mm3 (4.4-11.0)
--- NOTE | 2020-03-29 13:53 | RAD_ITS ---
STUDY: X-RAY CHEST REASON FOR EXAM: Male, 69 years old. Chest pain TECHNIQUE: Frontal view of the chest COMPARISON: 11/23/2018 FINDINGS: The lungs are clear. There are no pleural effusions. There is no pneumothorax. The heart is stable in size. The visualized osseous structures are within normal limits. RAD/Chest 1 View (Portable) IMPRESSION: No acute thoracic pathology. Electronically Signed: Michael Machado, at 15:06 EDT Tel , Service support ,
[2020-03-29 13:59] LABS: BUN 24 mg/dL (7-18); Creatinine, Serum 1.57 mg/dL (0.70-1.30); EST Glomerular Filtration Rate 47 mL/min (>60); Glucose 147 mg/dL (74-106)
[2020-03-29 14:00] LABS: Anion Gap 5 (5-15); BUN/Creat Ratio 15.3 RATIO (10-20); Calcium,Total 8.8 mg/dL (8.5-10.1); Chloride 111 mmol/L (98-107); Est Glom Filt Rate - Afr Amer 57 mL/min (>60); Potassium 3.8 mmol/L (3.5-5.1); Sodium Level 143 mmol/L (136-145)
--- NOTE | 2020-03-29 14:06 | EKG12_ITS ---
Test Reason : REPEAT EKG Blood Pressure : / mmHG Vent. Rate : 058 BPM Atrial Rate : 058 BPM P-R Int : 176 ms QRS Dur : 106 ms QT Int : 426 ms P-R-T Axes : 081 -45 -64 degrees QTc Int : 418 ms Sinus bradycardia Pulmonary disease pattern Left anterior fascicular block ST & T wave abnormality, consider lateral ischemia Abnormal ECG Confirmed by SHAUN MURPHY MD ([id number]), non linear editor LESTER EMERSON ([id number]) on 03/30/2020 1:19:10 PM Referred By: KRISH Confirmed By:SHAUN MURPHY MD
[2020-03-29] MEDS: hydrALAZINE 20 MG/ML Vial 10 MG IV (14:17)
[2020-03-29] MEDS: Ondansetron 4 MG/2 ML Vial IM (14:18)
--- NOTE | 2020-03-29 17:06 | NURSING ---
DR CHAVEZ FOR DR RAMIREZ
--- NOTE | 2020-03-29 17:27 | PCM.HP.STD ---
Problem List (1) Hypertensive emergency Status: Acute (2) Acute [id number] myocardial infarction Status: Acute (3) Left renal artery stenosis Status: Chronic Comment: Left renal artery stents x 2 2014 (4) Essential (primary) hypertension Status: Chronic (5) History of CVA (cerebrovascular accident) Status: Chronic (6) Liver transplant recipient Status: Chronic (7) Kidney transplant recipient Status: Chronic Comment: left History of Present Illness Date of Admission: 03/29/20 Chief Complaint: Chest pain. The patient is a 69 year old M with past medical history as mentioned above presented to the emergency room because of chest pain. Patient stated that around 1130 this morning, he was sitting on his chair watching TV, started having chest pain, retrosternal chest pain, described as squeezing pain, 6 out of 10 in severity, constant, not radiating, no associated symptoms and without aggravating or relieving factors. After he arrived to the emergency department and he was given IV hydralazine for elevated blood pressure, his chest pain started to ease up. In the emergency department, initial blood pressure was highly elevated, it was 245/126, he was bradycardic, heart rate has been in the high 50s, other vital signs are stable. His routine blood work was remarkable for BUN of 24, creatinine is 1.57 which are chronic. His EKG revealed sinus bradycardia, normal VT interval, normal QRS, normal QTC, no acute ischemic changes. First troponin was 0.091. Second troponin was 0.647. Chest x-ray showed no acute findings. According to patient's , he does have hypertension and his blood pressure is usually high. He is being admitted for hypertensive emergency with acute non-ST elevation [place]. Past Medical History Past Medical History (Chronic Problems): Chronic Problems (Last Updated 03/29/20 @ 17:[address] Savi Sarmiento MD) Left renal artery stenosis (Chronic) Left renal artery stents x 2 2014 Essential (primary) hypertension (Chronic) History of CVA (cerebrovascular accident) (Chronic 11/2017) Liver transplant recipient (Chronic 07/13/12) Kidney transplant recipient (Chronic 07/13/12) left Medical History: Medical History (Last Updated 03/29/20 @ 17:[address] Savi Sarmiento MD) Left renal artery stenosis (Chronic) I70.1 Left renal artery stents x 2 2014 Essential (primary) hypertension (Chronic) I10 History of CVA (cerebrovascular accident) (Chronic) Onset Date: 11/2017 Z86.73 Anasarca R60.1 Anemia D64.9 Asthma J45.909 Chronic nonalcoholic liver disease K76.9 Chronic pain syndrome G89.4 Cirrhosis of liver K74.60 GERD (gastroesophageal reflux disease) K21.9 Morbid obesity E66.01 Obesity E66.9 Obstructive sleep apnea G47.33 Osteoarthritis Renal calculi N20.0 Segmental and somatic dysfunction of lumbar region M99.03 Superficial thrombophlebitis I80.9 Hydronephrosis N13.30 TIA (transient ischemic attack) G45.9 End stage renal failure on dialysis N18.6, Z99.2 Allergies morphine Allergy (Intermediate, Verified 11/23/18 17:30) Unknown DID NOT WORK, GOT WORSE metformin Allergy (Verified 11/23/18 17:30) Other pregabalin [From Lyrica] Allergy (Verified 11/23/18 17:30) Other TREMORS Home Medications: Ambulatory Orders Medication Instructions Recorded Losartan Potassium [Cozaar] 50 mg PO BID #60 tab 11/21/17 Tacrolimus [Astagraf Xl] 1 mg PO QHS 06/25/18 hydrochlorothiazide 12.5 mg capsule 12.5 mg PO DAILY 09/16/19 allopurinol 300 mg tablet 300 mg PO DAILY 09/18/19 carvedilol 12.5 mg tablet 12.5 mg PO BID #180 tab 09/18/19 carvedilol 25 mg tablet 25 mg PO BID #180 tab 09/18/19 doxazosin 4 mg tablet 4 mg PO BID tab 12/20/19 mycophenolate mofetil 250 mg 500 mg PO BID 12/20/19 capsule pantoprazole 40 mg tablet,delayed 40 mg PO DAILY 12/20/19 release tacrolimus 1 mg capsule,extended 2 mg PO DAILY 12/20/19 release 24 hr Oxybutynin Chloride [Oxybutynin 10 mg PO DAILY 03/29/20 Chloride ER] Oxycodone Myristate [Xtampza ER] 13.5 mg PO BID 03/29/20 Prednisone 5 mg PO DAILY 03/29/20 Prednisone 10 mg PO DAILY 03/29/20 Sulfamethoxazole/Trimethoprim 1 ea PO DAILY 03/29/20 [Sulfamethoxazole-Tmp Ss Tablet] hydrALAZINE [Apresoline] 50 mg PO TID 03/29/20 Surgical History: Surgical History (Last Updated 03/29/20 @ 17:[address] Savi Sarmiento MD) Liver transplant recipient (Chronic) Onset Date: 07/13/12 Z94.4 Kidney transplant recipient (Chronic) Onset Date: 07/13/12 Z94.0 left History of knee replacement Z96.659 History of stent insertion of renal artery Onset Date: 2014 Z98.890 Surgical History: - - Renal and Liver Transplant, L TKR, R TKR, L wrist carpal tunnel release, Hernia repair with mesh, Cholecystectomy. Psychiatric History: No pertinent psych hx Lives: Spouse/ Significant Other Smoking Status: Never smoker Alcohol: None Drugs: None - *Family History Maternal Family History: Family History (Last Reviewed 03/29/20 @ 17:[address] Savi Sarmiento MD) Other PGM diabetes Paternal Family History: Family History (Last Reviewed 03/29/20 @ 17:[address] Savi aSrmiento MD) Other PGM diabetes History Items: Heart Disease, Hypertension Review of Systems Constitutional: Denies: Anorexia, Chills, Fever, Weakness Eyes: Denies: Blurred vision, Double vision, Drainage, Redness HEENT: Denies: Difficulty Hearing, Ear Pain, Eye Pain, Nasal Congestion, Sore Throat Cardiovascular: Reports: Chest Pain, Chest Pressure. Denies: Heaviness, Light Headedness, Palpitations, Syncope Respiratory: Denies: Cough, Pleuritic Pain, Shortness of Breath, Sputum production, Wheezing Gastrointestinal: Denies: Abdominal Pain, Constipation, Diarrhea, Nausea, Vomiting Genitourinary: Denies: Dysuria, Frequency, Hematuria Musculoskeletal: Denies: Arm Pain, Back Pain, Foot Pain Skin: Denies: Dryness, Rash Neurological: Reports: Headaches. Denies: Balance problems, Double vision, Change in Speech, Incoordination, Numbness Psychiatric: Denies: Anxiety, Depression Endocrine: Denies: Change in Body Habitus, Polydipsia, Polyuria VTE Information - Inpt Only VTE Present on Admission: No VTE Mechan Device Prophylaxis: None VTE Pharm Prophylaxis ordered?: Yes Patient Problems: Active and Suspected Problems (Last Updated 03/29/20 @ 17:[address] Savi Sarmiento MD) Hypertensive emergency (Acute) Acute dtj-WG-hkybjmyak myocardial infarction (Acute) - Physical Exam Vitals/I&O's: Vital Signs Temp Pulse Resp BP Pulse Ox 98.5 F 57 L 15 155/82 H 96 03/29/20 12:56 03/29/20 16:15 03/29/20 16:15 03/29/20 16:15 03/29/20 16:15 Oxygen Flow Rate (L/min) 2 Oxygen Delivery Method Nasal Cannula Weight: 320 lb Body Mass Index (BMI) 45.9 Finger Stick Blood Glucose 118 General: Alert, Oriented x3, Cooperative, No apparent distress HEENT: Atraumatic, PERRLA, EOMI, Normocephalic Oral: Moist Mucosa, No Gingival or Mucosal Lesions/ Ulcerations Neck: Supple, No JVD, Negative Carotid Bruits, Trachea Midline, Thyroid Normal Size and Texture Lungs: Clear to auscultation, Normal air movement, No rhonchi, No wheeze, No rales, Diminished Cardiovascular: Regular rate, Regular Rhythm, Normal S1, Normal S2, PMI Normal, Bradycardic Abdomen: Bowel Sounds Present, Soft, Non Tender, Non-Distended, No Hepato-splenomegaly, Obese Extremities: No clubbing, No cyanosis, No edema Skin: No rashes, No breakdown Lymphatic: No Cervical, Supraclavicular, or Inguinal Adenopathy Neurological: Cranial nerves II-XII grossly intact, Motor Exam 5/5 strength throughout Psych/Mental Status: Normal Affect, Appropriate, Alert and oriented to time, place, person, mood and affect Laboratory Results 03/29/20 13:35: WBC 6.5, RBC 4.67, Hgb 13.8, Hct 41.5, MCV 88.9, MCH 29.6, MCHC 33.3, RDW Std Deviation 43.6, RDW Coeff of Leonie 13.8, Plt Count 135 L, MPV 10.3, Immature Gran % (Auto) 0.500, Neut % (Auto) 52.3, Lymph % (Auto) 36.4, Andrew % (Auto) 7.4, Eos % (Auto) 3.2, Baso % (Auto) 0.2, Absolute Neuts (auto) 3.4, Absolute Lymphs (auto) 2.36, Nucleated RBC % 0 03/29/20 13:35: Sodium 143, Potassium 3.8, Chloride 111 H, Carbon Dioxide 27.0, Anion Gap 5, BUN 24 H, Creatinine 1.57 H, Estim Creat Clear Calc 46.50, Est GFR (MDRD) Af Amer 57 L, Est GFR (MDRD) Non-Af 47 L, BUN/Creatinine Ratio 15.3, Glucose 147 H, Calcium 8.8, Troponin I 0.091 H 03/29/20 16:10: Troponin I 0.647 H* Clinical Impression(s) from Imaging Studies Chest X-Ray 03/29/20 13:53 IMPRESSION: No acute thoracic pathology. Electronically Signed: Michael Dicksonjebirina, at 15:06 EDT Tel , Service support , Assessment/Plan All Active Problems (Last Updated 03/29/20 @ 17:[address] Savi Sarmiento MD) Hypertensive emergency (Acute) Acute uve-YZ-xmtrncdbl myocardial infarction (Acute) This is a 69 years old male patient presented to the emergency room because of chest pain, found to have highly elevated blood pressure as well as elevated troponin consistent with hypertensive emergency leading to acute non-ST elevation [place] and he is being admitted for evaluation and treatment. #1 hypertensive emergency: Initial blood pressure was 245/126, received IV hydralazine x2, blood pressure is down to 170s to 180s. According to patient's , his blood pressure is usually elevated. He does have endorgan damage which is the acute non-STEMI. No evidence of other organ damage. Plan: Admit to PCU, cardiac monitoring, serial cardiac enzymes, IV adenosine PRN, 2D echocardiogram, continue Coreg, doxazosin, HCTZ, losartan, repeat CBC and BMP tomorrow morning. #2 acute non-ST elevation [place]: EKG reviewed, apart from sinus bradycardia, no acute segment changes. Troponin is elevated. Chest pain improved after blood pressure is coming down. Case discussed with cardiology, plan for 2D echocardiogram. We will avoid going straight for cardiac catheterization unless it is really indicated because of history of kidney transplant. Plan: Cardiac monitoring, serial cardiac enzymes, 2D echocardiogram, cardiology consult, continue Coreg, losartan, IV morphine PRN, gentle IV fluids for hydration. #3 ESRD status post renal transplant: Kidney function stable, potassium is normal. Plan to continue mycophenolate, prednisone and tacrolimus. 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 #5 hypertension: Blood pressure is high elevated, plan as above. #6 chronic pain syndrome: Continue oxycodone twice daily. #7 GERD: Continue Protonix. #8 DVT prophylaxis: Subcu heparin. This note was generated with [employer] dictation software. It may contain incorrect words, spelling, and punctuation that were not noted in checking the note before signing. Inpatient E&M: 15779 Init Hosp L3
--- NOTE | 2020-03-29 17:45 | NURSING ---
PCU [facility] HYPERTENSIVE EMERGENCY, NON STEMI
[2020-03-29] MEDS: Morphine 4 MG/ML Syringe IV (17:47)
--- NOTE | 2020-03-29 17:52 | NURSING ---
PCU CP, ELEVATED TROP ASHELFAH
[2020-03-29 19:18] LABS: International Normalized Ratio 0.9
[2020-03-29] MEDS: 0.9% Normal Saline 1,000 ML 75 ML IV (20:13)
[2020-03-29] MEDS: 0.9% Saline Lock 10 ML Syringe IV (20:14)
[2020-03-29 22:12] LABS: Partial Thromboplast Time 41.9 Seconds (24.1-36.2)
--- NOTE | 2020-03-29 22:14 | PCM.DC.SUM ---
Discharge Date and Diagnosis - Problem List Patient Problems: Active and Suspected Problems (Last Updated 03/29/20 @ 17:[address] Savi aSrmiento MD) Chest pain (Acute) Elevated troponin (Acute) Essential (primary) hypertension (Acute) Kidney transplant recipient (Acute) Liver transplant recipient (Acute) History of CVA (cerebrovascular accident) (Acute) Hypertensive emergency (Acute) Acute rnr-RY-guziqdqex myocardial infarction (Acute) Date of Admission: 03/29/20 Date of Discharge: 03/29/20 - Primary Discharge Diagnosis Acute Problems: Active Problems (Last Updated 03/29/20 @ 17:[address] Savi Sarmiento MD) Chest pain (Acute) Elevated troponin (Acute) Essential (primary) hypertension (Acute) History of Kidney transplant recipient History of Liver transplant recipient History of CVA (cerebrovascular accident) Hypertensive emergency (Acute) Acute mkt-XW-druwssxlq myocardial infarction (Acute) - Secondary Discharge Diagnosis Chronic Problems: Chronic Problems (Last Updated 03/29/20 @ 17:[address] Savi Sarmiento MD) Left renal artery stenosis (Chronic) Left renal artery stents x 2 2014 Essential (primary) hypertension (Chronic) History of CVA (cerebrovascular accident) (Chronic 11/2017) Liver transplant recipient (Chronic 07/13/12) Kidney transplant recipient (Chronic 07/13/12) left Hospital Course and Treatment Imaging Results: 03/29/20 13:53 Chest 1 View (Portable) [RAD] Stat 03/29/20 18:19 Echo Complete [ECHO] Urgent Operations: herniorrhaphy Summary of Care Provided: The patient is a 69 year old M with a significant history of liver and kidney transplant who reported to emergency department with substernal chest pain. Patient was also found to have extremely elevated blood pressure. His troponin initially was 0.091. It increased to 0.647 and then to 3.260. His blood pressure on presentation was severely elevated at 245/126. Patient was diagnosed with hypertensive emergency and non-ST elevation MT. His blood pressure was controlled with IV hydralazine. Home blood pressure medications were ordered. Cardiology was consulted. Per cardiology recommendation patient was given aspirin 324 mg x 1. He was given Plavix 300 mg p.o. x1 and heparin bolus and drip was started. Because patient is a kidney and transplant patient from [facility] cardiology recommended that patient be transferred to [facility] for possible heart cath. These were discussed with patient. Initially he was not agreeable. However later patient became became agreeable. The transfer line was contacted and patient will be transferred. Patient Problems: Active and Suspected Problems (Last Updated 03/29/20 @ 17:[address] Savi Sarmiento MD) Chest pain (Acute) Elevated troponin (Acute) Essential (primary) hypertension (Acute) Kidney transplant recipient (Acute) Liver transplant recipient (Acute) History of CVA (cerebrovascular accident) (Acute) Hypertensive emergency (Acute) Acute ztd-BG-itpwuttmf myocardial infarction (Acute) - Physical Exam Vitals/I&O's: Vital Signs Temp Pulse Resp BP Pulse Ox 98.3 F 57 L 15 146/80 H 95 03/29/20 18:58 03/29/20 20:29 03/29/20 18:58 03/29/20 20:29 03/29/20 18:58 Oxygen Flow Rate (L/min) 2 Oxygen Delivery Method Nasal Cannula Weight: 141.4 kg Body Mass Index (BMI) 44.7 Finger Stick Blood Glucose 118 Intake and Output for Last 24 Hours 03/27/20 03/28/20 03/29/20 23:59 23:59 23:59 Intake Total 7.5 / 7.5 Balance 7.5 / 7.5 General: Alert, Oriented x3, Cooperative HEENT: Atraumatic, PERRLA, EOMI, Normocephalic Neck: Supple, No Nuchal Rigidity, Trachea Midline Lungs: Clear to auscultation, Normal air movement, No rhonchi, No wheeze, No rales Cardiovascular: Regular Rhythm, Normal S1, Normal S2, No murmurs, Bradycardic Abdomen: Bowel Sounds Present, Soft, Obese, - Extremities: No edema, Capillary Refill Less than 3 Seconds Skin: No rashes, No breakdown Musculoskeletal: No Tenderness to Palpation of Joints or Extremities Neurological: Cranial nerves II-XII grossly intact Psych/Mental Status: Normal Affect, Appropriate Laboratory Results 03/29/20 13:35: WBC 6.5, RBC 4.67, Hgb 13.8, Hct 41.5, MCV 88.9, MCH 29.6, MCHC 33.3, RDW Std Deviation 43.6, RDW Coeff of Leonie 13.8, Plt Count 135 L, MPV 10.3, Immature Gran % (Auto) 0.500, Neut % (Auto) 52.3, Lymph % (Auto) 36.4, [place] % (Auto) 7.4, Eos % (Auto) 3.2, Baso % (Auto) 0.2, Absolute Neuts (auto) 3.4, Absolute Lymphs (auto) 2.36, Nucleated RBC % 0 03/29/20 13:35: Sodium 143, Potassium 3.8, Chloride 111 H, Carbon Dioxide 27.0, Anion Gap 5, BUN 24 H, Creatinine 1.57 H, Estim Creat Clear Calc 46.50, Est GFR (MDRD) Af Amer 57 L, Est GFR (MDRD) Non-Af 47 L, BUN/Creatinine Ratio 15.3, Glucose 147 H, Calcium 8.8, Troponin I 0.091 H 03/29/20 16:10: Troponin I 0.647 H* 03/29/20 18:45: PT 12.0, INR 0.9 03/29/20 18:45: Troponin I 3.260 H* 03/29/20 18:45: APTT 41.9 H Current Medications Acetaminophen (Tylenol) 650 mg PO Q6H PRN PRN PRN Reason: Pain Score 1-10/Temp > 100.7 F Allopurinol (Zyloprim) 300 mg PO DAILYCM [facility] Carvedilol (Coreg) 37.5 mg PO BIDCM [facility] Doxazosin Mesylate (Cardura) 4 mg PO BID [facility] Heparin Sodium (Porcine) (Heparin Na) 0 unit IV UD PRN; Protocol PRN Reason: DOSAGE ADJUSTMENT Hydralazine HCl (Apresoline) 50 mg PO TID [facility] Hydralazine HCl (Apresoline Iv) 10 mg IV Q4H PRN PRN PRN Reason: for SBP>160 Hydrochlorothiazide () 12.5 mg PO DAILY [facility] Sodium Chloride () 1,000 mls @ 75 mls/hr IV .[id number] [facility] Last Infusion: 03/29/20 20:19 Dose: 75 mls/hr Documented by: Heparin Sodium/Dextrose () 25,000 units in 250 mls @ 18 mls/hr IV .[id number] [facility]; Protocol Losartan Potassium (Cozaar) 50 mg PO BID [facility] Mycophenolate Mofetil (Cellcept) 500 mg PO BID [facility] Ondansetron HCl (Zofran) 4 mg IV Q8H PRN PRN PRN Reason: NAUSEA/VOMITING Oxycodone HCl (Oxycontin) 15 mg PO BID [facility] Pantoprazole Sodium (Protonix) 40 mg PO DAILY [facility] () [facility] Senna/Docusate Sodium (Senokot-S, Rebecca-Colace) 2 tablet PO BID PRN PRN PRN Reason: Constipation Sodium Chloride () 10 - 40 ml IV UD PRN PRN Reason: SALINE FLUSH Last Admin: 03/29/20 20:14 Dose: 10 ml Documented by: Tacrolimus (Prograf) 1 mg PO QHS [facility] Tacrolimus (Prograf) 2 mg PO DAILY [facility] Tolterodine Tartrate (Detrol La) 2 mg PO DAILY [facility] Trimethoprim/Sulfamethoxazole (Bactrim Ds) 0.5 tablet PO [id number] [facility] Zolpidem Tartrate (Ambien (Generic)) 5 mg PO QHS PRN PRN PRN Reason: INSOMNIA Discharge Diet: 1800 Calorie Control Diet Home Medications: Medications to take at Discharge Losartan Potassium [Cozaar] 50 mg PO BID #60 tab 11/21/17 allopurinol 300 mg tablet 300 mg PO QHS 09/18/19 carvedilol 12.5 mg tablet 12.5 mg PO BID #180 tab 09/18/19 carvedilol 25 mg tablet 25 mg PO BID #180 tab 09/18/19 doxazosin 4 mg tablet 4 mg PO BID tab 12/20/19 mycophenolate mofetil 250 mg capsule 500 mg PO BID 12/20/19 pantoprazole 40 mg tablet,delayed release 40 mg PO DAILY 12/20/19 tacrolimus 1 mg capsule,extended release 24 hr 1 mg PO DAILY 12/20/19 Albuterol Aerosols [Ventolin Aerosols] 2.5 mg INHALATION Q6H PRN PRN 03/29/20 Oxybutynin Chloride [Oxybutynin Chloride ER] 10 mg PO DAILY 03/29/20 Oxycodone [Oxyir] 10 mg PO Q6H PRN PRN 03/29/20 Prednisone 5 mg PO DAILY 03/29/20 Sulfamethoxazole/Trimethoprim [Sulfamethoxazole-Tmp Ss Tablet] 1 ea PO DAILY 07/26/20 Primary Care Physician: Shanelle Luz DO [Primary Care Provider] - Patient Instructions: ED Chest Pain NonCardiac Disposition: Acute care Hospital Minutes spent on discharge:: 35 Patient Condition:: Stable Medical Necessity - Tobacco Use Smoking Status: Never smoker Meaningful Use Info Meaningful Use Diagnoses (Choose all that apply): AMI - AMI/Post PCI/Angioplasty Aspirin given w/in 24hrs of arrival?: Yes ASA at discharge?: Yes Antiplatelet Therapy at Discharge:: Yes Statins at discharge?: No Reason statins not ordered:: Allergy - Liver transplant patient Kash/ARB at discharge?: Yes Beta Gee at discharge?: Yes Done w/ Acute MT measure.: Yes - CHF KASH/ARB ordered at discharge?: Yes Inpatient E&M: 88433 Disch Hosp - Same day discharge
--- NOTE | 2020-03-29 23:16 | NURSING ---
Lydia called from [facility], patient has been accepted to [facility], waiting on bed availability.
[2020-03-29] MEDS: Heparin Injection (Vial) 5,000 UNIT/ML VIAL 11000 UNIT IV (23:18)
[2020-03-29] MEDS: HEPARIN/D5w 25,000 UNITS 25,000 UNITS/250 ML IV.SOLN. 18 UNITS IV (23:23)
[2020-03-29] MEDS: Albuterol 2.5 MG/3 ML VIAL.NEB. INHALATION (23:25)
[2020-03-29] MEDS: Aspirin 81 MG TAB.CHEW 324 MG PO (23:31)
[2020-03-29] MEDS: Clopidogrel Bisulfate 300 MG Tablet PO (23:31)
[2020-03-29] MEDS: hydrALAZINE 50 MG Tablet PO (23:59)
[2020-03-29] MEDS: Doxazosin 4 MG Tablet PO (23:59)
[2020-03-30] MEDS: Losartan Potassium 50 MG Tablet PO
[2020-03-30] MEDS: Mycophenolate Mofetil 250 MG Capsule 500 MG PO
[2020-03-30] MEDS: Tacrolimus Anhydrous 1 MG Capsule PO (00:01)
[2020-03-30] MEDS: oxyCODONE CR 15 MG Tablet PO (00:05)
[2020-03-30] MEDS: 0.9% Saline Lock 10 ML Syringe IV ×2 (02:27→03:19)
--- NOTE | 2020-03-30 03:32 | NURSING ---
0305 IV site occluded. DC/d IV left AC. [facility] restarted IV in Right AC.
== END 2020-03-30 03:20 | disposition short-term general hospital (02) | DRG 280 ==
LOC: ED 17:36 → PCU 18:08
PROVIDERS: Internal Medicine Cardiovascular Disease; Admitting Provider Hospitalist; Emergency Provider Physician Assistant Medical; PCP Internal Medicine; Visit Provider Hospitalist
DX: I16.1 Hypertensive emergency (principal); I21.4 Non-ST elevation (NSTEMI) myocardial infarction; N18.6 End stage renal disease; Z94.0 Kidney transplant status; Z94.4 Liver transplant status; I13.2 Hypertensive heart and chronic kidney disease with heart failure and with stage 5 chronic kidney disease, or end stage renal disease; I70.1 Atherosclerosis of renal artery; Z86.73 Personal history of transient ischemic attack (TIA), and cerebral infarction without residual deficits; Z83.3 Family history of diabetes mellitus; E78.5 Hyperlipidemia, unspecified; G89.4 Chronic pain syndrome; K21.9 Gastro-esophageal reflux disease without esophagitis; Z82.49 Family history of ischemic heart disease and other diseases of the circulatory system; Z86.72 Personal history of thrombophlebitis; Z87.442 Personal history of urinary calculi; Z99.2 Dependence on renal dialysis; E78.00 Pure hypercholesterolemia, unspecified; K74.60 Unspecified cirrhosis of liver
CPT/HCPCS: 36415; 71045; 80048; 84484; 85025; 85610; 85730; 93005; 99285; J7030; A4216

== ENCOUNTER → 2020-04-29 13:15 | Outpatient (CLI) | payer OTHER, SELFPAY ==
[2020-04-15 16:11] VITALS: BMI 44.7
--- NOTE | 2020-04-29 13:25 | PCM.CR.HP2 ---
CR - History & Physical - General Arrival date:: 04/29/20 Arrival time:: 13:28 Date of Referral:: 04/15/20 Date of CR Evaluation:: 04/29/20 Referring Physician: Dr. Felipe Schroeder Primary Diagnosis: Acute WI with 12 months - History of Present Cardiac Event Onset Date: Enter Onset Date of cardiac illnesses in Comment field below Acute Myocardial Infarction within 12 months:: Yes - 03/30/2020 - Medications Home Medications: Ambulatory Orders Medication Instructions Recorded Losartan Potassium [Cozaar] 50 mg PO BID #60 tab 11/21/17 allopurinol 300 mg tablet 300 mg PO QHS 09/18/19 carvedilol 25 mg tablet 25 mg PO BID #180 tab 09/18/19 pantoprazole 40 mg tablet,delayed 40 mg PO DAILY 12/20/19 release Oxybutynin Chloride [Oxybutynin 10 mg PO DAILY 03/29/20 Chloride ER] Prednisone 5 mg PO DAILY 03/29/20 aspirin 81 mg tablet,delayed 81 mg PO DAILY 04/15/20 release carvedilol 12.5 mg tablet 12.5 mg PO BID #180 tab 04/15/20 doxazosin 4 mg tablet 4 mg PO QHS tab 04/15/20 hydrochlorothiazide 12.5 mg tablet 12.5 mg PO DAILY 04/15/20 mycophenolate mofetil 500 mg tablet 500 mg PO BID 04/15/20 polysaccharide iron complex 150 mg 150 mg PO DAILY 04/15/20 iron capsule sulfamethoxazole 400 2 tab PO .M/W/F twice daily PRN 04/15/20 mg-trimethoprim 80 mg tablet tab tacrolimus 1 mg capsule,extended 1 mg PO BID cap 04/15/20 release 24 hr zafirlukast 20 mg tablet 20 mg PO Q12H 04/15/20 atorvastatin 40 mg tablet 40 mg PO QHS #90 tab 04/23/20 clopidogrel 75 mg tablet 75 mg PO DAILY #90 tab 04/23/20 nifedipine 90 mg tablet,extended 90 mg PO DAILY #90 tab 04/23/20 release 24 hr - Allergies Allergies/Adverse Reactions: Allergies morphine Allergy (Intermediate, Verified 11/23/18 17:30) Unknown DID NOT WORK, GOT WORSE metformin Allergy (Verified 11/23/18 17:30) Other pregabalin [From Lyrica] Allergy (Verified 03/22/19 17:30) Other TREMORS - Sleep Disorder Evaluation Hx of Sleep Apnea: Yes Do you snore loudly (louder than talking or can be heard through closed doors)?: Yes - uses machine Do you often feel tired/ fatigued/ sleepy during daytime?: Yes Has anyone observed you stop breathing during sleep?: Yes History of Hypertension (for STOP score): Yes STOP Results: Positive Advanced Directives - Advanced Directives 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 Living Will: Yes Advance Directives Information Provided: Yes Advance Directives on File: Yes DNR Order?:: No Past Medical History - Covid-19 Screening Fever: No Unexplained muscle aches: No Current respiratory symptoms: No Upper respiratory infections symptoms: No Gastro-intestinal symptoms: No Vxz-Uior-Npshxm symptoms: No Has tested positive for COVID-19 in last 30 days: No Had contact w/person w/symptoms or Covid-19 (+) last 14 days: No Has High Risk Exposures ID'd by Health dept/Inf Control team: No 65 years or older:: Yes Lives in Assisted Living facility:: No Has a chronic lung disease or moderate to severe asthma:: No Has a serious heart condition:: Yes Immunocompromised:: Yes Severely obese (Body Mass Index of 40 or higher):: Yes Diabetic:: No Has chronic kidney disease undergoing dialysis:: Yes Has liver disease:: Yes - Past Medical Illness Medical History: Past Medical History (Last Updated 04/18/20 @ 21:55 by Britni Leon) History of non-ST elevation myocardial infarction (NSTEMI) (Resolved) Onset Date: 03/30/20 I25.2 Essential (primary) hypertension (Chronic) I10 History of CVA (cerebrovascular accident) (Chronic) Z86.73 Acute cya-DN-mdvcmrgsi myocardial infarction (Resolved) I21.4 Left renal artery stenosis (Chronic) I70.1 Left renal artery stents x 2 2014 Essential (primary) hypertension (Chronic) I10 History of CVA (cerebrovascular accident) (Chronic) Onset Date: 11/2017 Z86.73 Anasarca R60.1 Anemia D64.9 Asthma J45.909 Chronic nonalcoholic liver disease K76.9 Chronic pain syndrome G89.4 Cirrhosis of liver K74.60 GERD (gastroesophageal reflux disease) K21.9 Morbid obesity E66.01 Obesity E66.9 Obstructive sleep apnea G47.33 Osteoarthritis Renal calculi N20.0 Segmental and somatic dysfunction of lumbar region M99.03 Superficial thrombophlebitis I80.9 Acute coronary syndrome with high troponin (Resolved) I24.9 Chest pain (Resolved) R07.9 Elevated troponin (Resolved) R79.89 Hydronephrosis N13.30 Hypertensive emergency (Resolved) I16.1 TIA (transient ischemic attack) G45.9 End stage renal failure on dialysis N18.6, Z99.2 - Past Surgical History Surgical History: Past Surgical History (Last Updated 04/18/20 @ 21:55 by Britni Leon) Kidney transplant recipient (Chronic) Z94.0 Liver transplant recipient (Chronic) Z94.4 Liver transplant recipient (Chronic) Onset Date: 07/13/12 Z94.4 Kidney transplant recipient (Chronic) Onset Date: 07/13/12 Z94.0 left History of knee replacement Z96.659 History of left heart catheterization Onset Date: 04/03/20 Z98.890 History of stent insertion of renal artery Onset Date: 2014 Z98.890 Surgical History: - - Renal and Liver Transplant, L TKR, R TKR, L wrist carpal tunnel release, Hernia repair with mesh, Cholecystectomy. - Family History Summary Family History: Family History (Last Reviewed 04/15/20 @ 16:[address] Felipe Schroeder MD) Other PGM diabetes Social History - Smoking History Smoking Status: Never smoker Hx Tobacco Use: No Hx Smoking Exposure: No - Alcohol Use Alcohol Usage: No - Substance Abuse Hx Substance Use: No - Occupation Occupation (List type of work in comments):: Retired - Hobbies, Recreation, Social Activities Hobbies: None Social Environment - Status Marital Status: - Current Living Arrangements Living Environment:: Spouse - Children How many children do you have?: 2 Do any of your children live nearby?: Yes - Safety Do you feel safe in your surroundings?: Yes - Assistance Do you need any assistance at home?: none Review of Systems - Review of Systems Hints: Right click = Denies (Slash). Left click = Reports ([place]) Review of Present Symptoms: Reports: Shortness of Breath with Exertion, Fatigue, Appetite - Normal, Appetite - Special Diet, Sleep - Normal. Denies: Shortness of Breath at Rest, PVD, Operative Discomfort, Angina, Wound Healing, Dizziness/Lightheadedness, Heart Arrhythmia/Irregularities, Sexual Changes - Pain Is Patient Pain Free?: No Pain Location: lower extremity - hips Pain Level: 06/13 Risk Factor Assessment - Chief Complaint Chief Complaint: AMI within 12 months - Vital Signs Pulse Ox: 96 Blood Pressure: 120/84 - Pulse Pulse Rate: 68 Pulse Rhythm: Regular - Obesity Height: 5 ft 9 in Weight:: 143.789 kg Weight in Pounds: 317.0 lbs Body Mass Index (BMI): 46.7 Nutritional Referral for Obesity: No - Physical Inactivity Physical Inactivity: None - Risk Stratification Risk Guidelines: Moderate Risk: Risk Factor for Smoking, Risk Factor for Dyslipidemia, Risk Factor for Diabetes, Risk Factor for Depression, Highest Risk: Risk Factor for Obesity, Risk Factor for Hypertension, Risk Factor for Sedentary Lifestyle - For Smoking Smoking Risk Guidelines: Smoking Low Risk: None or quit greater than 6 months ago. Smoking Moderate Risk: Smoker or quit 6 months or less ago. Smoking High Risk: Smoker - For Dyslipidemia Dyslipidemia Risk Guidelines: Low Risk: Moderate Risk: High Risk: 15-25% fat 25.1-29% fat >/= 30% fat. <7% sat fat 7-9% sat fat >9% sat fat. <150 mg chol 150-299 mg chol >/= 300 mg chol. LDL <100 LDL 100-129 LDL >/= 130. Chol/HDL ratio <5.0 Chol/HDL ratio 5.0-6.0 Chol/HDL ratio >6.0. Triglycerides <100 Triglycerides 100-149 Triglycerides >/= 150 - For Diabetes Mellitus Diabetes Risk Guidelines: Diabetes Low Risk: HgA1c <6.5% and/or FBG <120. Diabetes Moderate Risk: HgA1c 6.6-7.9% and/or FBG 120-180. Diabetes High Risk: HgA1c >/= 8% and/or FBG >180 - For Obesity/Overweight Obesity/Overweight Risk Guidelines: Obesity Low Risk: BMI <25.0. Obesity Moderate Risk: BMI 25-29.9. Obesity High Risk: BMI >/= 30.0 - For Hypertension Hypertension Risk Guidelines: Hypertension Low Risk: Systolic <120 and Diastolic <80. Hypertension Moderate Risk: Systolic 120-139 and Diastolic 80-89. Hypertension High Risk: Systolic >/= 140 and Diastolic >/= 90 - For Sedentary Lifestyle Sedentary Lifestyle Risk Guidelines: Sedentary Lifestyle Low Risk: >/= 1,500 kcal/week. Sedentary Lifestyle Moderate Risk: 700-1,499 kcal/week. Sedentary Lifestyle High Risk: < 700 kcal/week - For Depression Depression Risk Guidelines: Depression Low Risk: Not clinically depressed. Depression Moderate Risk: Mildly depressed. Depression High Risk: Clinically depressed - Family History Family History: Family History (Last Reviewed 04/15/20 @ 16:[address] Felipe Schroeder MD) Other PGM diabetes Motivation - Motivation to Participate On a scale of 1 to 10, how prepared are you to commit to attending program?: 8 What do you see as barriers to successfully being able to complete the program?: hip pain What do you see as the benefits of succesfully completing the program? In other words, what do you hope to get out of participating in the program?: improved health Are there issues you are dealing with that will interfere with completing the program?: none Do you have a spouse or signficant other, family or friends who will help support you to complete the program?: spouse
--- NOTE | 2020-04-29 13:27 | CR.ITP_ITS ---
Diagnosis - General Information Admitting Diagnosis: Acute LA within 12 months Personal Learning Style:: Audio/Visual Gave educational material for:: Treating Heart Disease, Emotions & Heart Disease, Stress Management & Relaxation, Sleep Disorders & Heart Disease, How Th e Heart Works, What it means to have Heart Disease, How Coronary Artery Disease is Diagnosed, Heart Procedures, What Heart Medications Do, Risk Factors & Modifications, Living an Active Life, Nutrition - Education/Goals Cardiac Rehabilitation Goals: 1. Maintain the individual as the primary focus of care. 2. To improve the patient's quality of life. 3. Identification of cardiac risk factors and provide cardiac risk factor management. 4. Enhance the psychosocial status of the patient. 5. Reconditioning enough to allow the patient to resume customary activities. 6. Control symptoms of cardiac disease Personal Goals: Initial Assessment: Improve energy level, Participate in home exercise program Scale for measuring improvement of personal goals: Enter appropriate number in Comments. 2 = Unchanged. 3 = Slightly Better. 4 = Moderate Improvement. 5 = Met my Goal - Diagnosis & Disease Process Outcomes/Goals: Pt IDs own risk factors & lifestyle modifications by Session 10, Verbalizes symptoms of angina & response by session 3., Pt independently manages, Other Additional Outcomes/Goals: Plan/Interventions: Assist Pt to ID & engage in lifestyle modification to reduce CVD risk, Instruct on individual risk factors, Review symptoms of angina & emergency actions, Review secondary diagnosis & identify educational needs., Other see comment 30 day Reassessments:: Not Met 30 day Reassessments:: Not Met 30 day Reassessments:: Not Met 30 day Reassessments:: Not Met Final Reassessments:: Not Met - Safety Referral to Physical Therapy: No Referral to [facility] Case Management: No Fall Risk Assessed:: Yes Assistive Devices:: None Exercise - Initial Assessment - Visit Date of Eval: 04/29/20 - initial eval Mets: Pre-: >5 METS for 30 minutes by discharge - Physician Prescribed Exercise Modalities: Treadmill, Rower, Airdyne, NuStep, SciFit Frequency: 2x/week for 18 weeks [36 sessions] Intensity: 60-80% of age predicted maximum heart rate reserve Target Heart Rate:: 99-129 Resting Blood Pressure: 120/84 Nutrition - Initial Assessment - Program Goals Nutrition Program Goals: LDL <100 optimal. 100 - 129 Near optimal. 130 - 159 Borderline High. 160 - 189 High. Total Cholesterol <200 desirable. 200 - 239 Borderline High. >/= 240 High. HDL < 40 Low >/=60 High. Triglycerides <150 desirable. <199 optimal. VlDL 5 - 40. HgbA1C <7%. BMI <25 Patient has diagnosis of Hyperlipidemia (ICD E78)?: Yes - Visit Date of Assessment:: 04/29/20 - initial eval - Cholesterol/Lipids Determine presence & major risk factors that modify LDL goal: Hypertension or hypertensive medication Outcomes/Goals: Pt IDs own risk factors & lifestyle modifications by Session 10, Verbalizes symptoms of angina & response by session 3., Pt independently manages, Other Additional Outcomes/Goals: Intervention/Plan: Advocate for lipid panel cholesterol medication if applicable, Instruct on personal lipid levels & lipid goals/NCEP guidelines, Instruct on cholesterol, Other additional plan/int Referral to dietitian:: No - pt declines - Diabetes (Other Core Measures) Diabetes Type: Not Applicable - Weight Mgt (Other Care) Height: 5 ft 9 in Weight:: 143.789 kg BMI: 46.7 Diagnosis High BMI/Morbid Obesity BMI> 35% ICD-10 Z68: Yes Outcomes/Goals: Pt sets, maintains & shows weight loss goal & trend during rehab, Other additional outcomes/goals Intervention/Plan: Instruct on ideal BMI & set weight loss goal w/patient, Assist pt to ID & incorporate diet changes for weight loss by S9, Refer to Structured Weight Loss program as appropriate, Encourage goal of using 250- 300dcal per session for weight loss, Other additional plan/interventions - Healthy Eating Habits Will attend diet classes:: Yes Outcomes/Goals:: Consume diet rich in vegs,fruits,whole grain/high fiber,fish,lean meat, Limit sat/trans fats,cholesterol & added salts & sugars, Other additional outcome/goals: - Education Gave educational materials for:: Signs & symptoms of hypoglycemia, Signs & symptoms of hyperglycemia, Healthy eating Medical - Initial Assessment - Visit Date of Eval: 04/29/20 - initial eval - Medication Compliance Preventative Medication(s):: Aspirin, Statin/lipid, Beta eldon H/O mental health issues: depression, anxiety, or addiction?: No Doesn?t believe in the benefits of treatment?: No Believes medications are unnecessary or harmful?: No Has a concern about medication side effects?: No Expresses concern over the cost of medications?: No Outcomes/Goals: Verbalizes medications,desired effect & common side effects @ DC, Pt self-reports following medication regimen, Keeps card in wallet w/medications listed by DC, Other additional outcome/goals: Interventions/plans: Instruct on medication effects & side effects, Review medication list w/patient every two weeks, Instruct importance of taking meds as ordered & assist problem solving, Other additional - Tobacco Use Tobacco Use: Non-smoker - Hypertension Hypertension Diagnosis:: Hypertension ICD-10 I10 Resting Blood Pressure:: 120/84 [place] [employer] Hypertension Guidelines: [place] [employer] Hypertension Guidelines. Normal BP Less than 120/80. Elevated BP 120/80. Hypertension Stage 1: BP 130-139/80-89. Hypertesnion Stage 2: BP 140 or higher/90 or higher. Hypertension Crisis: BP higher than 180/120 Outcomes/Goals: Able to verbalize/achieve optimal blood pressure <130/80, Incorporates diet changes & exercise for blood pressure control by DC, Other additional outcomes/goals Interventions/plan: Instruct on optimal blood pressure, hypertension & medications, Instruct on effects of sodium, alcohol, stress, exercise &hypertension, Other additional plan/interventions - Tobacco Cessation Referral Smoking Cessation Referral:: No Individual Education/Counseling:: No Education Schedule Given:: Yes Psychosocial - Initial Assess - VIsit Date of Eval: 04/29/20 - initial eval - Target Goals Target Goals: Assess presence or absence of depression. Using a valid screening tool, maximizes coping skills. Positive support system - Psychosocial Test Tool Used:: Juliano[employer] Stir QOL Cardiac, PHQ-9 Questionnaire phq-9 Severity: Severity. 1-4 Minimal Depression. 5-9 Mild Depression. 10-14 Moderate Depression. 15-19 Moderately Sever Depression. 20-27 Severe Depression. Rule: - Referral to Behavioral Health PS - Interventions: Yes Referral to Behavioral Health if PHQ-9 score >9:, Yes Referral to Physician if PHQ-9 if score is 5-9:, Yes Attend Stress Management Classes, No Referral to [facility] - Outcomes/Goals: See list Psychosocial Outcomes/Goals:: ID's personal stressors & 2 strategies to manage stress by discharge, Other Additional outcome/goals: - Intervention/Plan: See List Interventions/Plan:: Assess stressors,coping strategies & signs of derpression on admission, Instruct/assist pt to develop coping & personal stress Mgt strategies, Refer to Behavioral Health if appropriate, Refer to Physician if appropriate, Instruct patient to recognize signs & symptoms of depression, Instruct patient to recog, Other additional plan/intervention Patient Health Questionnaire Initial Assessment 1. Little interest or pleasure in doing things: Not at all 2. Feeling down, depressed, or hopeless: Not at all 3. Trouble falling or staying asleep, or sleeping too much: Several days 4. Feeling tired or having little energy: Not at all 5. Poor appetite or overeating: Not at all 6. Feeling bad about yourself -- or that you are a failure or have let yourself or your family down: Not at all 7. Trouble concentrating on things, such as reading the newspaper or watching television: Several days 8. Moving or speaking so slowly that other people could have noticed. Or the opposite - being so fidgety or restless that you have been moving around a lot more than usual: Several days 9. Thoughts that you would be better off , or of hurting yourself in some way: Not at all How difficult have these problems made it for you to do your work, take care of things at home, or get along with other people?: Not difficult at all Total Score: 3 DARLING-Q SV Test - Statements CAD is a disease of the arteries in the heart: False Examples of risk factors for heart disease: I Don't Know Angina is chest pain or discomfort: I Don't Know The benefits of resistance training include: True Eating more meat and dairy products: I Don't Know Anti-platelet medications such as aspirin are important: I Don't Know The only effective way to manage stress: False An exercise warm-up slowly increases heart rate: I Don't Know Prepared, processed foods usually have high sodium: True Depression is common after a heart attack: True The statin medications lower cholesterol: True To control blood pressure, lower the amount of sodium: True If someone gets chest discomfort during walking: False Transfats are partially hydrogenated vegetable oils: True Sleep apnea that is not treated increases the risk: I Don't Know To control cholesterol, one should become a vegetarian: False Someone knows if he/she is exercising at the right level: I Don't Know Diabetes cannot be prevented with exercise & health eating: I Don't Know Stress is a large risk for heart attack: True A diet that can help lower blood pressure is rich in: True - Total Score Total Correct Responses: 12 Self-Efficacy Initial Assessment We would like to know how confident you are in doing certain activities. Please select your confidence level for:: Select your confidence level for the following using the scale 1-10 where 1 is not at all confident and 10 is totally confident. Your score is the average of all 6 responses. Fatigue: How confident are you that you can keep the fatigue caused by your disease from interfering with the things you want to do? Select Number: 3 Physical Discomfort or Pain: How confident are you that you can keep the physical discomfort or pain of your disease from interfering with the things you want to do? Select Number: 5 Emotional Distress: How confident are you that you can keep the emotional distress caused by your disease from interfering with the things you want to do? Select Number: 5 Other Symptoms or Health Problems: How confident are you that you can keep other symptoms or health problems from interfering with the things you want to do? Select Number: 5 Different Tasks and Activities: How confident are you that you can do the different tasks and activities needed to manage your health condition so as to reduce your need to see a doctor? Select Number: 5 Medication: How confident are you that you can do things other than just taking medication to reduce how much your illness affects your everyday life? Select Number: 4 Total Score:: 4 Nutrition Survey - Nutrition Survey Instructions Scoring Instructions: Scoring is as follows: Yes = 1 points. No = 0 point. Patient score that is >/=12 is considered to be at potential nutritional risk and could benefit from a referral to a registered dietitian. - Nutrition Survey Initial Have you lost >10 lbs over the past 2 months without trying?: No Are you following a special diet at home for diabetes, low fat, or low salt?: Yes Are you interested in meeting with a dietitian for help understanding your diet?: No Do you eat less than 3 meals a day?: Yes Do you eat fatty meats (li, sausage, ribs, etc), fried foods, desserts, large amounts of salad dressings, margarine, butter, or cheese most days?: Yes Do you have food allergies? [Enter types in comment field]: No Do you eat in restaurants more than 3 times a week?: No Do you season food with salt, seasoning salt, or garlic salt?: No Do you used canned, boxed, frozen meals, or soups, seasoning packets?: No Total Score:: 3
[2020-04-29 14:33] VITALS: BP 120/84; PULSE 68; O2SAT 96; BMI 46.7
[2020-04-29 14:42] VITALS: BP 120/84; BMI 46.7
== END ==
PROVIDERS: PCP Internal Medicine; Referring Provider Internal Medicine Cardiovascular Disease; Visit Provider Internal Medicine Cardiovascular Disease
DX: I25.2 Old myocardial infarction (principal)

== ENCOUNTER 2020-05-04 11:14 | Outpatient (RCR) | payer OTHER, SELFPAY ==
[2020-04-29 14:33] VITALS: BMI 46.7
== END 2020-05-04 23:59 ==
LOC: CR 11:14
PROVIDERS: PCP Internal Medicine; Referring Provider Internal Medicine Cardiovascular Disease; Visit Provider Internal Medicine Cardiovascular Disease
DX: I25.10 Atherosclerotic heart disease of native coronary artery without angina pectoris (principal); I24.9 Acute ischemic heart disease, unspecified; I25.2 Old myocardial infarction; I10 Essential (primary) hypertension; Z94.0 Kidney transplant status; Z94.4 Liver transplant status
CPT/HCPCS: 93798

== ENCOUNTER 2020-06-01 11:30 | Outpatient (RCR) | payer OTHER, SELFPAY ==
[2020-04-29 14:33] VITALS: BMI 46.7
[2020-04-29 14:42] VITALS: BMI 46.7
--- NOTE | 2020-05-29 06:56 | PCM.CR.ITP ---
Exercise - 30-day Assessment - Visit Date of Sandrine: 05/29/20 Session #:: 5 - Patient has missed 4 of his scheduled sessions to date. Comments:: Patient does not demonstrate willingness to participate. 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 - Physician Prescribed Exercise Modalities: NuStep Frequency: 2x/week for 18 weeks [36 sessions] Intensity: 60-80% of age predicted maximum heart rate reserve Current METSs:: 2 unchanged Target Heart Rate:: 99-129 Current RPE:: 14 unable to achieve METs Maximum Excercise HR:: 71 Resting Blood Pressure: 148/82 - uncontrolled with medication Maximum Exercise Blood Pressure: 160/84 EKG Type: SB to sinus rhythm with atrial triplet - Outcomes & Goals Goals:: Verbalizes understanding of THR, RPE & goal METS by session 6, Documents in home exercise log/reports 30 min aerobic 5 day/wk by DC, Demonstrates accurate pulse taking by DC - Intervention & Plan Exercise Program Goals: Instruct on personal THR & RPE, Instruct on MET level & personal MET goal, Show patient to take own pulse /validate performance until accurate, Instruct on home exercise - 30-day Reassessments 30 day Reassessments:: Not Met - Physical Activity Home Exercise Physical Activity - Home Exercise: Safe Exercise, Warm-up, Self-monitoring, Cool-Down, Home Exercise > 30 min Daily, Sitting Time <3 hours/daily - Outcomes & Goals Outcomes/Goals: Demonstrates correct Warm-up/exercise Cool-Down (S3) if = 2.5 METs, Verbalizes symptoms of exercise intolerance by Session 3 (S3), Demonstrate safe equipment use (S3) & follows exercise prescrition (6) - Intervention & Plan Plan/Intervention: Instruct warm-up & cool-down if exercising at > 2 METs, Instruct on symptoms of exercise intolerance & actions to take, Instruct & monitor on saf, Assess intial functional capacity & safety risk - 30-day Reassessments 30 day Reassessments:: Not Met Nutrition - 30-Day Assessment - Program Goals Nutrition Program Goals: LDL <100 optimal. 100 - 129 Near optimal. 130 - 159 Borderline High. 160 - 189 High. Total Cholesterol <200 desirable. 200 - 239 Borderline High. >/= 240 High. HDL < 40 Low >/=60 High. Triglycerides <150 desirable. <199 optimal. VlDL 5 - 40. HgbA1C <7%. BMI <25 Patient has diagnosis of Hyperlipidemia (ICD E78)?: Yes - Visit Date of Assessment:: 05/29/20 Session #:: 5 - no updated labs - Cholesterol/Lipids Determine presence & major risk factors that modify LDL goal: Hypertension or hypertensive medication, Age men > 45 years; women >/= 55 years Outcomes/Goals: Pt IDs own risk factors & lifestyle modifications by Session 10, Verbalizes symptoms of angina & response by session 3., Pt independently manages Intervention/Plan: Instruct on personal lipid levels & lipid goals/NCEP guidelines, Instruct on cholesterol Referral to dietitian:: Yes 30-day Reassessments:: Not Met - Has not seen nutritional services - Diabetes (Other Core Measures) Diabetes Type: Not Applicable - Weight Mgt (Other Care) Not Applicable: No Height: 5 ft 9 in Weight:: 317 lb BMI: 46.7 Diagnosis Overweight/Obesity BMI> 30% ICD-10 E66: Yes Diagnosis High BMI/Morbid Obesity BMI> 35% ICD-10 Z68: Yes Outcomes/Goals: Pt sets, maintains & shows weight loss goal & trend during rehab Intervention/Plan: Instruct on ideal BMI & set weight loss goal w/patient, Assist pt to ID & incorporate diet changes for weight loss by S9, Refer to Structured Weight Loss program as appropriate, Encourage goal of using 250-300dcal per session for weight loss 30 day Reassessments:: Not Met - Healthy Eating Habits Will attend diet classes:: Yes Outcomes/Goals:: Consume diet rich in vegs,fruits,whole grain/high fiber,fish,lean meat, Limit sat/trans fats,cholesterol & added salts & sugars Intervention/Plan:: Assess current eating habits 30-day Reassessments:: Not Met - Education Gave educational materials for:: Healthy eating Medical- 30-Day Assessment - Visit Date of Eval: 05/29/20 Session #:: 5 - Medication Compliance Preventative Medication(s):: Aspirin, Clopidogrel/P2Y12 inhibit, Statin/lipid, Beta eldon H/O mental health issues: depression, anxiety, or addiction?: No Doesn?t believe in the benefits of treatment?: No Believes medications are unnecessary or harmful?: No Has a concern about medication side effects?: No Expresses concern over the cost of medications?: No Outcomes/Goals: Verbalizes medications,desired effect & common side effects @ DC, Pt self-reports following medication regimen, Keeps card in wallet w/medications listed by DC Interventions/plans: Instruct on medication effects & side effects, Review medication list w/patient every two weeks, Instruct importance of taking meds as ordered & assist problem solving 30-day Reassessments:: Progressing - Tobacco Use Tobacco Use: Non-smoker - Hypertension Hypertension Diagnosis:: Hypertension ICD-10 I10 Resting Blood Pressure:: 148/82 - uncontrolled on medications [place] [employer] Hypertension Guidelines: [place] [employer] Hypertension Guidelines. Normal BP Less than 120/80. Elevated BP 120/80. Hypertension Stage 1: BP 130-139/80-89. Hypertesnion Stage 2: BP 140 or higher/90 or higher. Hypertension Crisis: BP higher than 180/120 Peak Exercise Blood Pressure:: 160/84 Outcomes/Goals: Able to verbalize/achieve optimal blood pressure <130/80, Incorporates diet changes & exercise for blood pressure control by DC Interventions/plan: Instruct on optimal blood pressure, hypertension & medications, Instruct on effects of sodium, alcohol, stress, exercise &hypertension 30 day Reassessments:: Progressing - Tobacco Cessation Referral Smoking Cessation Referral:: No Individual Education/Counseling:: No Education Schedule Given:: Yes Psychosocial - 30-Day Assess - VIsit Date of Eval: 05/29/20 Session #:: 5 Not Applicable: Yes History of previous Mental disease:: No - Target Goals Target Goals: Assess presence or absence of depression. Using a valid screening tool, maximizes coping skills. Positive support system - Psychosocial Test Tool Used:: PHQ-9 Questionnaire phq-9 Severity: Severity. 1-4 Minimal Depression. 5-9 Mild Depression. 10-14 Moderate Depression. 15-19 Moderately Sever Depression. 20-27 Severe Depression. Rule: - Referral to Behavioral Health PS - Interventions: Yes Attend Stress Management Classes, No Referral to Behavioral Health if PHQ-9 score >9:, No Referral to [facility], No Referral to Physician if PHQ-9 if score is 5-9: - Outcomes/Goals: See list Psychosocial Outcomes/Goals:: ID's personal stressors & 2 strategies to manage stress by discharge - Intervention/Plan: See List Interventions/Plan:: Assess stressors,coping strategies & signs of derpression on admission, Instruct/assist pt to develop coping & personal stress Mgt strategies, Instruct patient to recognize signs & symptoms of depression, Instruct patient to recog - 30-day Reassessments: 30 day Reassessments:: Progressing Patient Health Questionnaire 30-Day Re-eval Assessment 1. Little interest or pleasure in doing things: Not at all 2. Feeling down, depressed, or hopeless: Not at all 3. Trouble falling or staying asleep, or sleeping too much: Several days 4. Feeling tired or having little energy: Not at all 5. Poor appetite or overeating: Not at all 6. Feeling bad about yourself -- or that you are a failure or have let yourself or your family down: Not at all 7. Trouble concentrating on things, such as reading the newspaper or watching television: Several days 8. Moving or speaking so slowly that other people could have noticed. Or the opposite - being so fidgety or restless that you have been moving around a lot more than usual: Several days 9. Thoughts that you would be better off , or of hurting yourself in some way: Not at all How difficult have these problems made it for you to do your work, take care of things at home, or get along with other people?: Not difficult at all Total Score: 3 Self-Efficacy 30-Day Re-eval Assessment We would like to know how confident you are in doing certain activities. Please select your confidence level for:: Select your confidence level for the following using the scale 1-10 where 1 is not at all confident and 10 is totally confident. Your score is the average of all 6 responses. Fatigue: How confident are you that you can keep the fatigue caused by your disease from interfering with the things you want to do? Select Number: 3 Physical Discomfort or Pain: How confident are you that you can keep the physical discomfort or pain of your disease from interfering with the things you want to do? Select Number: 5 Emotional Distress: How confident are you that you can keep the emotional distress caused by your disease from interfering with the things you want to do? Select Number: 5 Other Symptoms or Health Problems: How confident are you that you can keep other symptoms or health problems from interfering with the things you want to do? Select Number: 5 Different Tasks and Activities: How confident are you that you can do the different tasks and activities needed to manage your health condition so as to reduce your need to see a doctor? Select Number: 5 Medication: How confident are you that you can do things other than just taking medication to reduce how much your illness affects your everyday life? Select Number: 4 Total Score:: 4
[2020-05-29 07:06] VITALS: BP 148/82; BP 160/84; BMI 46.7
== END 2020-06-03 23:59 ==
LOC: CR 11:30
PROVIDERS: PCP Internal Medicine; Referring Provider Internal Medicine Cardiovascular Disease; Visit Provider Internal Medicine Cardiovascular Disease
DX: I25.10 Atherosclerotic heart disease of native coronary artery without angina pectoris (principal); I10 Essential (primary) hypertension; I25.2 Old myocardial infarction; I24.9 Acute ischemic heart disease, unspecified; Z94.4 Liver transplant status; Z94.0 Kidney transplant status
CPT/HCPCS: 93798

== ENCOUNTER 2020-07-03 11:30 | Outpatient (RCR) | payer OTHER, SELFPAY ==
[2020-04-29 14:33] VITALS: BMI 46.7
[2020-05-29 07:06] VITALS: BMI 46.7
[2020-06-04 00:40] VITALS: BP 148/82; BP 160/84
--- NOTE | 2020-06-26 13:02 | PCM.CR.ITP ---
Exercise - 60-day Assessment - Visit Date of Eval: 06/26/20 Session #:: 14 - 2 times/week - Physician Prescribed Exercise Modalities: NuStep Frequency: 2x/week for 18 weeks [36 sessions] Intensity: 60-80% of age predicted maximum heart rate reserve Current METSs:: 2.0 unchanged; patient states cannot do more Target Heart Rate:: 99-129 Current RPE:: 12-13 Maximum Excercise HR:: 67 Resting Blood Pressure: 128/80 Maximum Exercise Blood Pressure: 130/70 EKG Type: SB to NSR with rare atrial triplets - Outcomes & Goals Goals:: Verbalizes understanding of THR, RPE & goal METS by session 6, Documents in home exercise log/reports 30 min aerobic 5 day/wk by DC, Demonstrates accurate pulse taking by DC - Intervention & Plan Exercise Program Goals: Instruct on personal THR & RPE, Instruct on MET level & personal MET goal, Show patient to take own pulse /validate performance until accurate, Instruct on home exercise - 30-day Reassessments 30 day Reassessments:: Not Met - Physical Activity Home Exercise Physical Activity - Home Exercise: Safe Exercise, Warm-up, Self-monitoring, Cool-Down, Home Exercise > 30 min Daily, Sitting Time <3 hours/daily - Outcomes & Goals Outcomes/Goals: Demonstrates correct Warm-up/exercise Cool-Down (S3) if = 2.5 METs, Verbalizes symptoms of exercise intolerance by Session 3 (S3), Demonstrate safe equipment use (S3) & follows exercise prescrition (6) - Intervention & Plan Plan/Intervention: Instruct warm-up & cool-down if exercising at > 2 METs, Instruct on symptoms of exercise intolerance & actions to take, Instruct & monitor on saf, Assess intial functional capacity & safety risk - 30-day Reassessments 30 day Reassessments:: Not Met Nutrition - 60-Day Assessment - Program Goals Nutrition Program Goals: LDL <100 optimal. 100 - 129 Near optimal. 130 - 159 Borderline High. 160 - 189 High. Total Cholesterol <200 desirable. 200 - 239 Borderline High. >/= 240 High. HDL < 40 Low >/=60 High. Triglycerides <150 desirable. <199 optimal. VlDL 5 - 40. HgbA1C <7%. BMI <25 Patient has diagnosis of Hyperlipidemia (ICD E78)?: Yes - Visit Date of Assessment:: 06/26/20 Session #:: 14 - 2 times/week - Cholesterol/Lipids Determine presence & major risk factors that modify LDL goal: Hypertension or hypertensive medication, Age men > 45 years; women >/= 55 years Outcomes/Goals: Pt IDs own risk factors & lifestyle modifications by Session 10, Verbalizes symptoms of angina & response by session 3., Pt independently manages Intervention/Plan: Instruct on personal lipid levels & lipid goals/NCEP guidelines, Instruct on cholesterol Referral to dietitian:: Yes - Diabetes (Other Core Measures) Diabetes Type: Not Applicable - Weight Mgt (Other Care) Not Applicable: No Height: 5 ft 9 in Weight:: 317 lb BMI: 46.7 Diagnosis Overweight/Obesity BMI> 30% ICD-10 E66: Yes Diagnosis High BMI/Morbid Obesity BMI> 35% ICD-10 Z68: Yes Outcomes/Goals: Pt sets, maintains & shows weight loss goal & trend during rehab Intervention/Plan: Instruct on ideal BMI & set weight loss goal w/patient, Assist pt to ID & incorporate diet changes for weight loss by S9, Refer to Structured Weight Loss program as appropriate, Encourage goal of using 250-300dcal per session for weight loss 30 day Reassessments:: Not Met - Healthy Eating Habits Will attend diet classes:: Yes Outcomes/Goals:: Consume diet rich in vegs,fruits,whole grain/high fiber,fish,lean meat, Limit sat/trans fats,cholesterol & added salts & sugars Intervention/Plan:: Assess current eating habits 30-day Reassessments:: Progressing - Education Gave educational materials for:: Healthy eating Medical- 60-Day Assessment - Visit Date of Eval: 06/26/20 Session #:: 14 - Medication Compliance Preventative Medication(s):: Aspirin, Clopidogrel/P2Y12 inhibit, Statin/lipid, Beta eldon H/O mental health issues: depression, anxiety, or addiction?: Yes Doesn?t believe in the benefits of treatment?: No Believes medications are unnecessary or harmful?: No Has a concern about medication side effects?: No Expresses concern over the cost of medications?: No Outcomes/Goals: Verbalizes medications,desired effect & common side effects @ DC, Pt self-reports following medication regimen, Keeps card in wallet w/medications listed by DC Interventions/plans: Instruct on medication effects & side effects, Review medication list w/patient every two weeks, Instruct importance of taking meds as ordered & assist problem solving 30-day Reassessments:: Progressing - Tobacco Use Tobacco Use: Non-smoker - Hypertension Hypertension Diagnosis:: Hypertension ICD-10 I10 Resting Blood Pressure:: 128/80 [place] [employer] Hypertension Guidelines: [place] [employer] Hypertension Guidelines. Normal BP Less than 120/80. Elevated BP 120/80. Hypertension Stage 1: BP 130-139/80-89. Hypertesnion Stage 2: BP 140 or higher/90 or higher. Hypertension Crisis: BP higher than 180/120 Peak Exercise Blood Pressure:: 130/70 Outcomes/Goals: Able to verbalize/achieve optimal blood pressure <130/80, Incorporates diet changes & exercise for blood pressure control by DC Interventions/plan: Instruct on optimal blood pressure, hypertension & medications, Instruct on effects of sodium, alcohol, stress, exercise &hypertension 30 day Reassessments:: Progressing - Tobacco Cessation Referral Smoking Cessation Referral:: No Individual Education/Counseling:: No Education Schedule Given:: Yes Psychosocial - 60-Day Assess - VIsit Date of Eval: 06/26/20 Session #:: 14 Not Applicable: No History of Emotional Disorders: Anxious, Depression - Target Goals Target Goals: Assess presence or absence of depression. Using a valid screening tool, maximizes coping skills. Positive support system - Psychosocial Test Tool Used:: PHQ-9 Questionnaire phq-9 Severity: Severity. 1-4 Minimal Depression. 5-9 Mild Depression. 10-14 Moderate Depression. 15-19 Moderately Sever Depression. 20-27 Severe Depression. Rule: - Referral to Behavioral Health PS - Interventions: Yes Attend Stress Management Classes, No Referral to Behavioral Health if PHQ-9 score >9:, No Referral to [facility], No Referral to Physician if PHQ-9 if score is 5-9: - Outcomes/Goals: See list Psychosocial Outcomes/Goals:: ID's personal stressors & 2 strategies to manage stress by discharge - Intervention/Plan: See List Interventions/Plan:: Assess stressors,coping strategies & signs of derpression on admission, Instruct/assist pt to develop coping & personal stress Mgt strategies, Instruct patient to recognize signs & symptoms of depression, Instruct patient to recog - 30-day Reassessments: 30 day Reassessments:: Progressing Patient Health Questionnaire 60-Day Re-eval Assessment 1. Little interest or pleasure in doing things: Not at all 2. Feeling down, depressed, or hopeless: Not at all 3. Trouble falling or staying asleep, or sleeping too much: Several days 4. Feeling tired or having little energy: Not at all 5. Poor appetite or overeating: Not at all 6. Feeling bad about yourself -- or that you are a failure or have let yourself or your family down: Not at all 7. Trouble concentrating on things, such as reading the newspaper or watching television: Several days 8. Moving or speaking so slowly that other people could have noticed. Or the opposite - being so fidgety or restless that you have been moving around a lot more than usual: Several days 9. Thoughts that you would be better off , or of hurting yourself in some way: Not at all How difficult have these problems made it for you to do your work, take care of things at home, or get along with other people?: Not difficult at all Total Score: 3 Self-Efficacy 60-Day Re-eval Assessment We would like to know how confident you are in doing certain activities. Please select your confidence level for:: Select your confidence level for the following using the scale 1-10 where 1 is not at all confident and 10 is totally confident. Your score is the average of all 6 responses. Fatigue: How confident are you that you can keep the fatigue caused by your disease from interfering with the things you want to do? Select Number: 5 Physical Discomfort or Pain: How confident are you that you can keep the physical discomfort or pain of your disease from interfering with the things you want to do? Select Number: 5 Emotional Distress: How confident are you that you can keep the emotional distress caused by your disease from interfering with the things you want to do? Select Number: 5 Other Symptoms or Health Problems: How confident are you that you can keep other symptoms or health problems from interfering with the things you want to do? Select Number: 5 Different Tasks and Activities: How confident are you that you can do the different tasks and activities needed to manage your health condition so as to reduce your need to see a doctor? Select Number: 5 Medication: How confident are you that you can do things other than just taking medication to reduce how much your illness affects your everyday life? Select Number: 5 Total Score:: 5
[2020-06-26 13:11] VITALS: BP 128/80; BP 130/70; BMI 46.7
== END 2020-07-04 23:59 ==
LOC: CR 11:30
PROVIDERS: PCP Internal Medicine; Referring Provider Internal Medicine Cardiovascular Disease; Visit Provider Internal Medicine Cardiovascular Disease
DX: I25.10 Atherosclerotic heart disease of native coronary artery without angina pectoris (principal); I10 Essential (primary) hypertension; I25.2 Old myocardial infarction; I24.9 Acute ischemic heart disease, unspecified; Z94.4 Liver transplant status; Z94.0 Kidney transplant status
CPT/HCPCS: 93798

== ENCOUNTER 2020-08-03 11:30 | Outpatient (RCR) | payer OTHER, SELFPAY ==
[2020-04-29 14:33] VITALS: BMI 46.7
[2020-06-26 13:11] VITALS: BMI 46.7
[2020-07-05 00:26] VITALS: BP 128/80; BP 130/70
--- NOTE | 2020-07-29 07:26 | CR.ITP_ITS ---
Exercise - 60-day Assessment - Visit Date of Eval: 07/29/20 Session #:: 21 - Physician Prescribed Exercise Modalities: NuStep Frequency: 3x/week for 12 weeks [36 sessions] Intensity: 60-80% of age predicted maximum heart rate reserve Current METSs:: 2.0 unchanged; patient barely performs at exercise levels. Target Heart Rate:: 99-129 Current RPE:: 13 Maximum Excercise HR:: 72 Resting Blood Pressure: 118/62 Maximum Exercise Blood Pressure: 120/46 EKG Type: NSR without ectopy. Current Physical Activity or Exercising minutes: Patient does no home exercise - Outcomes & Goals Goals:: Verbalizes understanding of THR, RPE & goal METS by session 6, Documents in home exercise log/reports 30 min aerobic 5 day/wk by DC, Demonstrates accurate pulse taking by DC - Intervention & Plan Exercise Program Goals: Instruct on personal THR & RPE, Instruct on MET level & personal MET goal, Show patient to take own pulse /validate performance until accurate, Instruct on home exercise - 30-day Reassessments 30 day Reassessments:: Not Met - Physical Activity Home Exercise Physical Activity - Home Exercise: Safe Exercise, Warm-up, Self-monitoring, Cool-Down, Home Exercise > 30 min Daily, Sitting Time <3 hours/daily - Outcomes & Goals Outcomes/Goals: Demonstrates correct Warm-up/exercise Cool-Down (S3) if = 2.5 METs, Verbalizes symptoms of exercise intolerance by Session 3 (S3), Demonstrate safe equipment use (S3) & follows exercise prescrition (6) - Intervention & Plan Plan/Intervention: Instruct warm-up & cool-down if exercising at > 2 METs, Instruct on symptoms of exercise intolerance & actions to take, Instruct & monitor on saf, Assess intial functional capacity & safety risk - 30-day Reassessments 30 day Reassessments:: Not Met - Patient demonstrates poor motivation to exercise. He has frequentlt stated he is only doing CR to passify his and Dr. Schroeder, because if he doesn't she will just complain to Dr. Schroeder. Nutrition - 60-Day Assessment - Program Goals Nutrition Program Goals: LDL <100 optimal. 100 - 129 Near optimal. 130 - 159 Borderline High. 160 - 189 High. Total Cholesterol <200 desirable. 200 - 239 Borderline High. >/= 240 High. HDL < 40 Low >/=60 High. Triglycerides <150 desirable. <199 optimal. VlDL 5 - 40. HgbA1C <7%. BMI <25 Patient has diagnosis of Hyperlipidemia (ICD E78)?: Yes - Visit Date of Assessment:: 07/29/20 Session #:: 21 - Cholesterol/Lipids Determine presence & major risk factors that modify LDL goal: Hypertension or hypertensive medication, Family history of premature CHD in Male < 55 years: female <65 yearsFa Outcomes/Goals: Pt IDs own risk factors & lifestyle modifications by Session 10, Verbalizes symptoms of angina & response by session 3., Pt independently manages Intervention/Plan: Advocate for lipid panel cholesterol medication if applicable, Instruct on personal lipid levels & lipid goals/NCEP guidelines, In struct on cholesterol Referral to dietitian:: No 30-day Reassessments:: Not Met - Diabetes (Other Core Measures) Diabetes Type: Not Applicable - Weight Mgt (Other Care) Not Applicable: No Height: 5 ft 9 in Weight:: 317 lb BMI: 46.7 Diagnosis Overweight/Obesity BMI> 30% ICD-10 E66: Yes Diagnosis High BMI/Morbid Obesity BMI> 35% ICD-10 Z68: Yes Outcomes/Goals: Pt sets, maintains & shows weight loss goal & trend during rehab Intervention/Plan: Instruct on ideal BMI & set weight loss goal w/patient, Assist pt to ID & incorporate diet changes for weight loss by S9, Encourage goal of using 250-300dcal per session for weight loss 30 day Reassessments:: Not Met - Healthy Eating Habits Will attend diet classes:: No 30-day Reassessments:: Not Met Medical- 60-Day Assessment - Visit Date of Eval: 07/29/20 Session #:: 21 - Medication Compliance Preventative Medication(s):: Aspirin, Clopidogrel/P2Y12 inhibit, Statin/lipid, Beta eldon H/O mental health issues: depression, anxiety, or addiction?: No Doesn?t believe in the benefits of treatment?: No Believes medications are unnecessary or harmful?: No Has a concern about medication side effects?: No Expresses concern over the cost of medications?: No Outcomes/Goals: Verbalizes medications,desired effect & common side effects @ DC, Pt self-reports following medication regimen, Keeps card in wallet w/medications listed by DC Interventions/plans: Instruct on medication effects & side effects, Review medication list w/patient every two weeks, Instruct importance of taking meds as ordered & assist problem solving 30-day Reassessments:: Progressing - Tobacco Use Tobacco Use: Non-smoker - Hypertension Hypertension Diagnosis:: Hypertension ICD-10 I10 Resting Blood Pressure:: 118/62 [place] [employer] Hypertension Guidelines: [place] [employer] Hypertension Guidelines. Normal BP Less than 120/80. Elevated BP 120/80. Hypertension Stage 1: BP 130-139/80-89. Hypertesnion Stage 2: BP 140 or higher/90 or higher. Hypertension Crisis: BP higher than 180/120 Peak Exercise Blood Pressure:: 120/46 Outcomes/Goals: Able to verbalize/achieve optimal blood pressure <130/80, Incorporates diet changes & exercise for blood pressure control by DC Interventions/plan: Instruct on optimal blood pressure, hypertension & medications, Instruct on effects of sodium, alcohol, stress, exercise &hypertension 30 day Reassessments:: Met - Tobacco Cessation Referral Smoking Cessation Referral:: No Individual Education/Counseling:: No Education Schedule Given:: Yes Psychosocial - 60-Day Assess - VIsit Date of Eval: 07/29/20 Session #:: 21 Not Applicable: No History of previous Mental disease:: Yes History of Emotional Disorders: Anxious, Depression Self-reported stressors: Medical/Health, Recent Illness - Target Goals Target Goals: Assess presence or absence of depression. Using a valid screening tool, maximizes coping skills. Positive support system - Psychosocial Test Tool Used:: PHQ-9 Questionnaire phq-9 Severity: Severity. 1-4 Minimal Depression. 5-9 Mild Depression. 10-14 Moderate Depression. 15-19 Moderately Sever Depression. 20-27 Severe Depression. Rule: - Referral to Behavioral Health PS - Interventions: Yes Attend Stress Management Classes, No Referral to Behavioral Health if PHQ-9 score >9:, No Referral to [facility], No Referral to Physician if PHQ-9 if score is 5-9: - Outcomes/Goals: See list Psychosocial Outcomes/Goals:: ID's personal stressors & 2 strategies to manage stress by discharge - Intervention/Plan: See List Interventions/Plan:: Assess stressors,coping strategies & signs of derpression on admission, Instruct/assist pt to develop coping & personal stress Mgt strategies, Instruct patient to recognize signs & symptoms of depression, Instruct patient to recog Patient Health Questionnaire 60-Day Re-eval Assessment 1. Little interest or pleasure in doing things: Not at all 2. Feeling down, depressed, or hopeless: Not at all 3. Trouble falling or staying asleep, or sleeping too much: Several days 4. Feeling tired or having little energy: Not at all 5. Poor appetite or overeating: Not at all 6. Feeling bad about yourself -- or that you are a failure or have let yourself or your family down: Not at all 7. Trouble concentrating on things, such as reading the newspaper or watching television: Several days 8. Moving or speaking so slowly that other people could have noticed. Or the opposite - being so fidgety or restless that you have been moving around a lot more than usual: Several days 9. Thoughts that you would be better off , or of hurting yourself in some way: Several days Total Score: 4 Self-Efficacy 60-Day Re-eval Assessment We would like to know how confident you are in doing certain activities. Please select your confidence level for:: Select your confidence level for the following using the scale 1-10 where 1 is not at all confident and 10 is totally confident. Your score is the average of all 6 responses. Fatigue: How confident are you that you can keep the fatigue caused by your disease from interfering with the things you want to do? Select Number: 3 Physical Discomfort or Pain: How confident are you that you can keep the physical discomfort or pain of your disease from interfering with the things you want to do? Select Number: 5 Emotional Distress: How confident are you that you can keep the emotional distress caused by your disease from interfering with the things you want to do? Select Number: 5 Other Symptoms or Health Problems: How confident are you that you can keep other symptoms or health problems from interfering with the things you want to do? Select Number: 5 Different Tasks and Activities: How confident are you that you can do the different tasks and activities needed to manage your health condition so as to reduce your need to see a doctor? Select Number: 4 Medication: How confident are you that you can do things other than just taking medication to reduce how much your illness affects your everyday life? Select Number: 4 Total Score:: 4
[2020-07-29 07:35] VITALS: BP 118/62; BP 120/46; BMI 46.7
== END 2020-08-03 23:59 ==
LOC: CR 11:30
PROVIDERS: PCP Internal Medicine; Referring Provider Internal Medicine Cardiovascular Disease; Visit Provider Internal Medicine Cardiovascular Disease
DX: I25.10 Atherosclerotic heart disease of native coronary artery without angina pectoris (principal); I10 Essential (primary) hypertension; I25.2 Old myocardial infarction; I24.9 Acute ischemic heart disease, unspecified; Z94.4 Liver transplant status; Z94.0 Kidney transplant status
CPT/HCPCS: 93798

== ENCOUNTER 2020-08-24 11:30 | Outpatient (RCR) | payer OTHER, SELFPAY ==
[2020-07-17 07:55] VITALS: BMI 46.7
[2020-07-29 07:35] VITALS: BMI 46.7
[2020-08-04 00:25] VITALS: BP 118/62; BP 120/46
== END 2020-09-03 23:59 ==
LOC: CR 11:30
PROVIDERS: PCP Internal Medicine; Referring Provider Internal Medicine Cardiovascular Disease; Visit Provider Internal Medicine Cardiovascular Disease
DX: I25.10 Atherosclerotic heart disease of native coronary artery without angina pectoris (principal); I10 Essential (primary) hypertension; I25.2 Old myocardial infarction; I24.9 Acute ischemic heart disease, unspecified; Z94.4 Liver transplant status; Z94.0 Kidney transplant status
CPT/HCPCS: 93798

== ENCOUNTER 2020-11-05 12:29 | Outpatient (RCR) | payer MEDICARE, OTHER, SELFPAY ==
[2020-07-17 07:55] VITALS: BMI 46.7
[2020-07-29 07:35] VITALS: BMI 46.7
[2020-11-05] MEDS: COVID-19 VACC, MRNA(PFIZER)/PF 30 MCG/0.3 ML SYRINGE IM (15:55)
[2020-11-26] MEDS: COVID-19 VACC, MRNA(PFIZER)/PF 30 MCG/0.3 ML SYRINGE IM (10:55)
== END 2021-02-09 23:59 ==
LOC: IMMUN 12:29
PROVIDERS: PCP Internal Medicine; Visit Provider Family Medicine
DX: Z23 Encounter for immunization (principal)
CPT/HCPCS: 0001A; 0002A; 91300

== ENCOUNTER → 2021-02-25 14:34 | Outpatient (CLI) | payer MEDICARE, OTHER, SELFPAY ==
[2020-07-17 07:55] VITALS: BMI 46.7
[2020-07-29 07:35] VITALS: BMI 46.7
--- NOTE | 2021-02-25 14:37 | RAD_ITS ---
STUDY: X-RAY - PELVIS AND BILATERAL HIPS REASON FOR EXAM: Male, 70 years old. HIP PAIN TECHNIQUE: AP view of the pelvis.? 2 views of the right hip, and 2 views of the left hip were obtained. COMPARISON: None. FINDINGS: There is a non-specific bowel gas pattern. Normal visualized soft tissue structures. Normal bilateral iliac wings, sacroiliac joints and visualized sacrum. Normal bilateral superior and inferior pubic rami. Normal pubic symphysis. Normal bilateral ischial tuberosities. Normal visualized right femoral head. Normal right acetabulum. Normal right hip joint multiple surgical clips superimposing the right iliac bone as well as the medial aspect of the right side. Normal visualized left femoral head. Normal left acetabulum. Normal left hip joint. RAD/Hips B/L min 2 views w/ Pelvis IMPRESSION: Normal x-ray examination of the pelvis and bilateral hips. Electronically Signed: Scottabigail Radha, at 14:49 EDT Tel , Service support ,
== END ==
PROVIDERS: PCP Internal Medicine; Referring Provider Anesthesiology Pain Medicine; Visit Provider Anesthesiology Pain Medicine
DX: M25.551 Pain in right hip (principal); M25.552 Pain in left hip
CPT/HCPCS: 73521

== ENCOUNTER 2021-06-13 20:39 | Inpatient (IN) | payer MEDICARE, OTHER, SELFPAY ==
[2020-07-29 07:35] VITALS: BMI 46.7
[2021-06-13] VITALS (17 sets, daily range): BP systolic 126–169; BP diastolic 77–107; PULSE 58–69; RESP 12–21; TEMP 36.8–36.9; O2SAT 94–947; BMI 48.6; BMI 46.7
--- NOTE | 2021-06-13 20:40 | CT_ITS ---
EXAMINATION : Head CT w/out contrast HISTORY : Neuro deficit, acute, stroke suspected COMPARISON : 11/17/2017. TECHNIQUE : Multiple contiguous axial images were obtained from the skull base to the vertex without intravenous contrast. A radiation dose optimization technique was used for this scan. FINDINGS : There is no evidence for acute intracranial hemorrhage, mass effect, or midline shift. There is no extra-axial fluid collection. There are periventricular white matter changes consistent with chronic microvascular ischemic disease. There is sulcal widening and ventricular enlargement consistent with cerebral atrophy. There is normal killian-white differentiation, without CT evidence of acute ischemia or infarct. The skull base and calvarium are unremarkable. The orbits are unremarkable. The paranasal sinuses are clear. The mastoid air cells are well-aerated. The soft tissues are unremarkable. CT/STROKE Brain/Head without Cont IMPRESSION: No acute intracranial abnormality. Chronic involutional and ischemic changes of the brain. Electronically Signed: Herbert Michaud MD at 20:59 EDT Tel , Service support ,
--- NOTE | 2021-06-13 20:42 | EKG12_ITS ---
Test Reason : STROKETEAM Blood Pressure : / mmHG Vent. Rate : 064 BPM Atrial Rate : 064 BPM P-R Int : 168 ms QRS Dur : 102 ms QT Int : 444 ms P-R-T Axes : 094 -43 017 degrees QTc Int : 458 ms Normal sinus rhythm Left axis deviation Abnormal ECG Confirmed by KATHERINE RUSSELL, SHAUN ([id number]), film or videotape editor RACHELE FRANZ ([id number]) on 06/14/2021 1:03:19 PM Referred By: YARITZA Confirmed By:SHAUN MURPHY MD
--- NOTE | 2021-06-13 20:42 | RAD_ITS ---
HISTORY: Neuro deficit, acute, stroke suspected EXAMINATION/TECHNIQUE: XR Chest 1 View: Portable AP upright chest x-ray COMPARISON: 03/29/20 FINDINGS: LINES/DEVICES: None. LUNGS: No consolidation, edema or effusion. No pneumothorax. MEDIASTINUM AND CARDIOVASCULAR STRUCTURES: Stable cardiomegaly. Central airways and mediastinal contour are unremarkable. BONES AND SOFT TISSUES: No acute bony abnormalities. RAD/Chest 1 View IMPRESSION: Cardiomegaly without radiographic evidence of acute cardiopulmonary disease. at 0000 Reported and signed by: Hever Whitaker MD Electronically Signed: Hever Whitaker MD at 23:59 EDT Tel , Service support ,
--- NOTE | 2021-06-13 20:43 | CT_ITS ---
We are attempting to reach an attending provider to discuss findings. An addendum with communication details will be sent when the communication is complete. HISTORY: Neuro deficit, acute, stroke suspected TECHNIQUE: Routine carotid CT angiogram protocol was performed without and with IV contrast. In addition, images were obtained of the [place]. Nascet criteria using the distal ICAs for comparison were used for evaluation of stenoses. 3D reconstructions were reviewed. A radiation dose optimization technique was used for this scan. IV Contrast dosage and agent: 100mL [id number] COMPARISON: None FINDINGS: --NECK: AORTIC ARCH AND BRANCHES: Normal anatomy, patent. RIGHT CCA: No occlusion, significant stenosis or dissection. RIGHT ICA: No occlusion, significant stenosis or dissection. LEFT CCA: No occlusion, significant stenosis or dissection. LEFT ICA: No occlusion, significant stenosis or dissection. RIGHT VERTEBRAL ARTERY: No occlusion, significant stenosis or dissection. LEFT VERTEBRAL ARTERY: No occlusion, significant stenosis or dissection. NECK SOFT TISSUES: Unremarkable. LUNG APICES: Clear. BONES: Degenerative changes. --HEAD: --Anterior circulation: ICAs: No significant stenosis at the intracranial/visualized segments. ACAs: No significant stenosis at the visualized segments. ACOM: Present. MCAs: No significant stenosis at the visualized segments. --Posterior circulation: PCOMs: Patent. child development instructor: No significant stenosis at the visualized segments. BASILAR ARTERY: No significant stenosis. VERTEBRAL ARTERIES: No significant stenosis at the intradural/visualized segments. No evidence of intracranial aneurysm or vascular malformation. CT/STROKE CTA Head AND Neck W/Con IMPRESSION: No significant major vessel vaso-occlusive disease in the head or neck. Individualized dose optimization techniques were used for this CT. at 2120 Reported and signed by: Hever Whitaker MD Electronically Signed: Hever Whitaker MD at 21:18 EDT Tel , Service support ,
[2021-06-13 21:00] LABS: Absolute Lymphocyte Count 2.51 X10^3/uL (0.83-4.51); Absolute Neutrophil Count 4.3 X10^3/uL (2.0-7.7); Basophil# 0.01 X10^3/uL; Basophil% 0.1 % (0-1); Eosinophil# 0.27 X10^3/uL; Eosinophils% 3.5 % (0-5); Hematocrit 41.7 % (40-54); Lymphocyte # 2.51 X10^3/ul (0.83-4.51); Lymphocyte % 32.3 % (19-41); Mean Corp Hgb Conc 33.6 g/dL (32-36); Mean Corpuscular Hgb 30.4 pg (27.0-32.0); Mean Corpuscular Volume 90.5 fL (80-94); Mean Platelet Vol. 9.9 fl (6.2-12.0); Monocyte# 0.63 X10^3/uL; Monocyte% 8.1 % (0-10); NRBC Flagged by Analyzer 0 % (0-5); Neutrophil # 4.33 X10^3/uL (2.7-7.7); Neutrophil % 55.7 % (47-70); Platelet Count 147 K/mm3 (150-450); RBC Distribution Width CV 13.2 % (11.6-14.6); RBC Distribution Width SD 43.4 fl (35.1-43.9); Red Blood Count 4.61 M/mm3 (4.6-6.2); White Blood Count 7.8 K/mm3 (4.4-11.0)
[2021-06-13 21:10] LABS: International Normalized Ratio 1.1; Partial Thromboplast Time 35.1 Seconds (24.1-36.2); Prothrombin Time (Protime)PT. 13.1 SECONDS (11.7-14.9)
--- NOTE | 2021-06-13 21:17 | ED.VIS.STROK ---
HPI History of Present Illness Chief Complaint: Neuro S/Sx Informant: patient, spouse/S.O. and EMS Onset/Context/Timing Onset: Hours Context: Sudden Onset Timing: Continuous Quality and Location: Positive for Right Facial Droop and Expressive Aphasia Current Severity: Moderate Maximum Severity: Moderate Worsened by: Nothing Relieved by: Nothing Associated Symptoms Associated Symptoms: Negative for Headache, Nausea, Vomiting and Chest Pain Narrative Narrative: Patient is a 70-year-old male who was talking with his when he abruptly was not able to speak. Onset was 1999. Paramedics states that he had a facial droop after he was placed into the ambulance. Upon arrival his facial droop is resolved. He does have an expressive aphasia. Is unable to read the sentences nor recognize images on the card. He denies headache, he denies visual ocular auditory symptoms. He denies trouble with swallowing. He denies cardiac respiratory symptoms. He is having difficulty expressing himself. Prior similar symptoms: No Recent Illness/Hospitalization: No PFSH [facility] Medical History Acute coronary syndrome with high troponin Anasarca Anemia Asthma Chronic nonalcoholic liver disease Chronic pain syndrome Cirrhosis of liver Elevated troponin End stage renal failure on dialysis Essential (primary) hypertension GERD (gastroesophageal reflux disease) History of CVA (cerebrovascular accident) (11/2017) History of non-ST elevation myocardial infarction (NSTEMI) (03/30/20) Hydronephrosis Hypertensive emergency Left renal artery stenosis Morbid obesity Obesity Obstructive sleep apnea Osteoarthritis Renal calculi Segmental and somatic dysfunction of lumbar region Superficial thrombophlebitis TIA (transient ischemic attack) Home Medications allopurinol 300 mg tablet 300 mg PO QHS 09/18/19 [History Last Taken 03/28/20 22:00] pantoprazole 40 mg tablet,delayed release 40 mg PO DAILY 12/20/19 [History Last Taken 03/29/20 08:00] oxybutynin chloride 10 mg PO DAILY 03/29/20 [History Last Taken 03/29/20 08:00] prednisone 5 mg PO DAILY 03/29/20 [History Last Taken Unknown] aspirin 81 mg tablet,delayed release 81 mg PO DAILY 04/15/20 [History Last Taken Unknown] mycophenolate mofetil 500 mg tablet 500 mg PO BID 04/15/20 [History Last Taken Unknown] tacrolimus 1 mg capsule,extended release 24 hr 1 mg PO BID cap 04/15/20 [History Last Taken Unknown] zafirlukast 20 mg tablet 20 mg PO Q12H 04/15/20 [History Last Taken Unknown] sulfamethoxazole 400 mg-trimethoprim 80 mg tablet 2 tab PO MOWEFR tab 07/17/20 [History Last Taken Unknown] carvedilol 12.5 mg tablet 12.5 mg PO BID #180 tab 09/01/20 [Rx Last Taken Unknown] carvedilol 25 mg tablet 25 mg PO BID #180 tab 09/01/20 [Rx Last Taken Unknown] nifedipine 90 mg tablet,extended release 24 hr 90 mg PO DAILY #90 tab 12/02/20 [Rx Last Taken Unknown] clopidogrel 75 mg tablet 75 mg PO DAILY #90 tab 01/13/21 [Rx Last Taken Unknown] atorvastatin 40 mg tablet 40 mg PO QHS #90 tab 03/01/21 [Rx Last Taken Unknown] doxazosin 4 mg PO QHS 06/13/21 [History Last Taken Unknown] losartan 50 mg PO BID 06/13/21 [History Last Taken Unknown] Allergy/AdvReac Type Severity Reaction Status Date / Time morphine Allergy Intermediate Unknown Verified 06/11/21 12:29 metformin Allergy Other Verified 06/11/21 12:29 pregabalin [From Lyrica] Allergy Other Verified 06/11/21 12:29 Family History Other PGM diabetes Surgical History History of knee replacement History of left heart catheterization (04/03/20) History of stent insertion of renal artery (2014) Kidney transplant recipient (07/13/12) Liver transplant recipient (07/13/12) Social History household members: spouse Smoking Status: Never smoker second hand exposure: No alcohol intake: never substance use type: does not use caffeine: Yes frequency: 3-4 times per week ROS ROS ED Review of Systems ROS Unobtainable: due to mental status Constitutional Constitutional ED: Reports fever(s) EXAM Physical Exam Const Vital Signs: 06/13/21 20:40 06/13/21 20:44 06/13/21 21:03 Temperature 98.4 F 98.4 F Temperature Source Temporal Temporal Pulse Rate 69 69 64 Respiratory Rate 20 H 17 Blood Pressure 151/77 H 151/77 H 151/77 H Blood Pressure Mean 101 101 101 Pulse Ox 94 95 97 Oxygen Delivery Method Room Air Room Air Room Air 06/13/21 21:10 06/13/21 21:17 06/13/21 21:20 Temperature Temperature Source Pulse Rate 62 Respiratory Rate 12 Blood Pressure 169/81 H 169/81 H Blood Pressure Mean 110 Pulse Ox 97 95 Oxygen Delivery Method Room Air Room Air Positive well nourished, well developed and obese General Appearance ED: well developed and NAD Nutritional Appearance: obese HEENT Reports TM's clear and moist mucous membranes atraumatic Tympanic Membrane ED: Yes TM's clear Eyes PERRL and EOMs intact bilaterally General Eye ED: Negative for pale conjunctiva or scleral icterus Neck no lymphadenopathy, supple and no JVD Chest Wall inspection of chest normal Resp normal respiratory effort and clear to auscultation bilaterally Cardio no murmurs Rate: regular rate Rhythm: regular rhythm Heart Sounds: S1 normal and S2 normal GI normal to inspection, nondistended, normoactive bowel sounds, soft to palpation and non-tender Back/Spine no CVA tenderness Extremity normal to inspection General Extremety ED: Yes edema; Negative for deformity or tenderness General Extremity: edema; Negative for deformity Neuro oriented x3 and CN's II-XII intact bilaterally Ya Coma Scale: document GCS findings Spontaneous Obeys Commands Oriented 15 Sensorium / Orientation: alert Motor Exam: strength 5/5 throughout Psych mental status grossly normal Skin Lesions: no lesions Rashes: no rashes STROKE Vital Signs/Narrative: Vital Signs Temp Pulse Resp BP Pulse Ox 06/13/21 21:20 62 12 169/81 H 95 06/13/21 21:17 169/81 H 06/13/21 21:10 97 06/13/21 21:03 64 17 151/77 H 97 06/13/21 20:44 98.4 F 69 151/77 H 95 06/13/21 20:40 98.4 F 69 20 H 151/77 H 94 NIHSS Initial: 1a Level of Consciousness: 0 1b LOC Questions (Score 2 if aphasic/stupor): 0 1c LOC Commands (Only score 1st attempt): 0 2 Best Gaze (If aphasic, use reflexive mvmts.): 0 3 Visual: 0 4 Facial Palsy: 0 5 Motor Arm Right (UN = amputation/fusion): 0 5 Motor Arm Left: 0 6 Motor Leg Right: 0 6 Motor Leg Left: 0 7 Limb ataxia (Only + if out of proportion): 0 8 Sensory (Aphasia/stupor=0 or 1, coma=2): 2 9 Best Language: 0 10 Dysarthria (mute, coma=2, intubated=UN): 0 11 Extinction and Inattention (only scored if +): 0 Total Score: 2 MDM MDM MDM Narrative Medical decision making narrative: Patient presents with expressive aphasia due to stroke. Patient was taken immediately to the CT scanner and a CT and CTA of the head neck were obtained. Per radiology no abnormality on the head CT with out contrast and radiologist informed that the CT of the head neck were negative. Dr. Tucker from [facility] examined patient. He requested that the platelet count returned prior to giving TPA since he is a liver and renal recipient. Also because he is on immunosuppressive agents which may cause thrombocytopenia. Since his platelet count is greater 100,000 he was given TPA. Patient's was involved in decision making. She was informed that there is statistically 6% chance of intracranial bleed. Since he presented within 1 hour of the onset of his symptoms that lowers the possibility but does not eliminate it. After explaining risk benefits and giving her opportunity to answer questions which were answered and input by neurologist she consented for TPA. tPA was started. Lab Data Labs: Laboratory Results - last 24 hr 06/13/21 06/13/21 06/13/21 20:49 20:49 20:49 WBC 7.8 RBC 4.61 Hgb 14.0 Hct 41.7 MCV 90.5 MCH 30.4 MCHC 33.6 RDW Std Deviation 43.4 RDW Coeff of Leonie 13.2 Plt Count 147 L MPV 9.9 Immature Gran % (Auto) 0.300 Neut % (Auto) 55.7 Lymph % (Auto) 32.3 [place] % (Auto) 8.1 Eos % (Auto) 3.5 Baso % (Auto) 0.1 Absolute Neuts (auto) 4.3 Absolute Lymphs (auto) 2.51 Nucleated RBC % 0 PT 13.1 INR 1.1 APTT 35.1 Sodium 142 Potassium 4.1 Chloride 108 H Carbon Dioxide 28.0 Anion Gap 6 BUN 29 H Creatinine 1.62 H Estim Creat Clear Calc 43.04 Est GFR (MDRD) Af Amer 55 L Est GFR (MDRD) Non-Af 45 L BUN/Creatinine Ratio 17.9 Glucose 150 H Calcium 9.1 Troponin I High Sens 24 Radiography Diagnostic Testing: Clinical Impression(s) from Imaging Studies Brain CT 06/13/21 20:40 IMPRESSION: No acute intracranial abnormality. Chronic involutional and ischemic changes of the brain. Electronically Signed: Herbert Michaud MD at 20:59 EDT Tel , Service support , ADDENDUM: 06/13/212111 IMPRESSION: No acute intracranial abnormality. Chronic involutional and ischemic changes of the brain. N.B. : The above Results were Read Back by Herbert Michaud MD to Dr. Lalo MD, and understanding confirmed on 06/13/2021 21:05:24 (ET). Electronically Signed: Herbert Michaud MD at 20:59 EDT Tel , Service support , Head/Neck CTA 06/13/21 20:43 IMPRESSION: No significant major vessel vaso-occlusive disease in the head or neck. Individualized dose optimization techniques were used for this CT. at 2120 Reported and signed by: Hever Whitaker MD Electronically Signed: Hever Whitaker MD at 21:18 EDT Tel , Service support , ADDENDUM: 06/13/212128 IMPRESSION: No significant major vessel vaso-occlusive disease in the head or neck. Individualized dose optimization techniques were used for this CT. at 2120 Reported and signed by: Hever Whitaker MD N.B. : The above Results were Read Back by Hever Whitaker MD to Dr. Lalo MD, and understanding confirmed on 06/13/2021 21:22:03 (ET). Electronically Signed: Hever Whitaker MD at 21:18 EDT Tel , Service support , EKG Initial EKG: Attestation: I personally reviewed and interpreted this EKG as follows: Interpretation: Sinus Rhythm (Normal sinus rhythm ventricular rate 64. MT interval is 168 ms. Cures duration under 2 ms. QT duration 444 ms. [place] to the left. There is no acute ischemic changes noted.) Stroke Documentation Questions Stroke Team Activated: Yes Reviewed Inclusion/Exclusion criteria: Yes Was Patient considered for Endovascular Intervention?: No IV Alteplase (t-PA) Administered: Yes No contraindications for IV Alteplase (t-PA) administration.: Yes Alteplase (t-PA) risks, benefits, alternative discussed: Yes Not given: Patient refusal: No Critical Care Time Critical Care Time: Yes Critical care time (excluding procedures): 30-74 minutes (31 minutes), Including time spent: (History, physical, documentation, review of prior records, review of laboratory studies, discussion with radiology for unenhanced scan, CTA of the head neck, discussion with neurologist), Discussing w/Patient &/or Family/Bag Presser (Discussion with regarding risk benefits of TPA), Discussing w/Consultants (Neurologist at [facility] and radiologist from [facility]) and Arranging Admission or Transfer (Hospitalist for admission to ICU status post administration of TPA for expressive aphasia) Discharge Plan Dx/Rx/DC Orders Clinical Impression: Expressive aphasia Disposition Disposition: Acute Care Hospital [facility]
--- NOTE | 2021-06-13 21:21 | ED.RN ---
delay in administration of TPA due to discussion with neurology and ED doctor over resolving symptoms recently. At this benefits out way risks with discussion with . TPA to be given
[2021-06-13 21:22] LABS: Anion Gap 6 (5-15); BUN 29 mg/dL (7-18); BUN/Creat Ratio 17.9 RATIO (10-20); Calcium,Total 9.1 mg/dL (8.5-10.1); Chloride 108 mmol/L (98-107); Creatinine, Serum 1.62 mg/dL (0.70-1.30); EST Glomerular Filtration Rate 45 mL/min (>60); Est Glom Filt Rate - Afr Amer 55 mL/min (>60); Estimated Creatinine Clearance 43.04 ml/min; Glucose 150 mg/dL (74-106); Potassium 4.1 mmol/L (3.5-5.1); Sodium Level 142 mmol/L (136-145); Troponin-I HS 24 pg/mL (3.0-78.0)
--- NOTE | 2021-06-13 21:43 | HP.PCM.HOS_ITS ---
HPI - General General Date of Admission: 06/13/21 HPI Narrative TOM GALLAGHER, is a 70 M with a significant history of kidney and liver transplant who presents to the emergency department with expressive aphasia. Patient symptoms started about 40 minutes before presentation. Also reportedly patient had facial droop. Patient received TPA at the emergency department. At the emergency department patient was evaluated by telemetry neurologist who did not notice any facial droop but noticed some mild expressive aphasia and dysarthria. [facility] Medical History Acute coronary syndrome with high troponin Anasarca Anemia Asthma Chronic nonalcoholic liver disease Chronic pain syndrome Cirrhosis of liver Elevated troponin End stage renal failure on dialysis Essential (primary) hypertension GERD (gastroesophageal reflux disease) History of CVA (cerebrovascular accident) (11/2017) History of non-ST elevation myocardial infarction (NSTEMI) (03/30/20) Hydronephrosis Hypertensive emergency Left renal artery stenosis Morbid obesity Obesity Obstructive sleep apnea Osteoarthritis Renal calculi Segmental and somatic dysfunction of lumbar region Superficial thrombophlebitis TIA (transient ischemic attack) Home Medications allopurinol 300 mg tablet 300 mg PO QHS 09/18/19 [History Last Taken 03/28/20 22:00] pantoprazole 40 mg tablet,delayed release 40 mg PO DAILY 12/20/19 [History Last Taken 03/29/20 08:00] oxybutynin chloride 10 mg PO DAILY 03/29/20 [History Last Taken 03/29/20 08:00] prednisone 5 mg PO DAILY 03/29/20 [History Last Taken Unknown] aspirin 81 mg tablet,delayed release 81 mg PO DAILY 04/15/20 [History Last Taken Unknown] mycophenolate mofetil 500 mg tablet 500 mg PO BID 04/15/20 [History Last Taken Unknown] tacrolimus 1 mg capsule,extended release 24 hr 1 mg PO BID cap 04/15/20 [History Last Taken Unknown] zafirlukast 20 mg tablet 20 mg PO Q12H 04/15/20 [History Last Taken Unknown] sulfamethoxazole 400 mg-trimethoprim 80 mg tablet 2 tab PO MOWEFR tab 07/17/20 [History Last Taken Unknown] carvedilol 12.5 mg tablet 12.5 mg PO BID #180 tab 09/01/20 [Rx Last Taken Unknown] carvedilol 25 mg tablet 25 mg PO BID #180 tab 09/01/20 [Rx Last Taken Unknown] nifedipine 90 mg tablet,extended release 24 hr 90 mg PO DAILY #90 tab 12/02/20 [Rx Last Taken Unknown] clopidogrel 75 mg tablet 75 mg PO DAILY #90 tab 01/13/21 [Rx Last Taken Unknown] atorvastatin 40 mg tablet 40 mg PO QHS #90 tab 03/01/21 [Rx Last Taken Unknown] doxazosin 4 mg PO QHS 06/13/21 [History Last Taken Unknown] losartan 50 mg PO BID 06/13/21 [History Last Taken Unknown] Allergy/AdvReac Type Severity Reaction Status Date / Time morphine Allergy Intermediate Unknown Verified 06/11/21 12:29 metformin Allergy Other Verified 06/11/21 12:29 pregabalin [From Lyrica] Allergy Other Verified 06/11/21 12:29 Family History Other PGM diabetes Surgical History History of knee replacement History of left heart catheterization (04/03/20) History of stent insertion of renal artery (2014) Kidney transplant recipient (07/13/12) Liver transplant recipient (07/13/12) Social History household members: spouse Smoking Status: Never smoker second hand exposure: No alcohol intake: never substance use type: does not use caffeine: Yes frequency: 3-4 times per week ROS ROS Narrative Constitutional: Denies fever, chills, fatigue, anorexia and change in weight Eyes: Denies blurry vision, change in eye color, change in vision, discharge from eye(s), double vision, erythema, eye pain, loss of vision or other HEENT: Denies abnormal hearing, dysphagia, ear pain, epistaxis, headache(s), hearing loss, nasal congestion, nasal discharge, post nasal drip, sinus pressure, sore throat or other Cardiovascular: Denies chest pain or palpitations. Denies dyspnea on exertion, orthopnea and paroxysmal nocturnal dyspnea Respiratory/Chest: Denies cough, excessive phlegm production, shortness of breath with exertion and wheezing Gastrointestinal: Denies abdominal pain, coffee ground emesis, constipation, diarrhea, dyspepsia, hematemesis, hematochezia, loose stools, melena, nausea, v omiting or other Genitourinary: Denies burning urination, difficulty urinating, dysuria, hematuria, nocturia, urinary frequency, urinary hesitancy, urinary incontinence, urinary urgency or other Musculoskeletal: Denies arthralgias, back pain, joint pain, joint stiffness, joint swelling, myalgias, neck pain or other Neurologic: Reports facial droop and speech changes. Reports chronic focal weak ness of the right lower extremity. Denies syncope, tingling, tremor(s) or other Psychiatric: Denies anxiety, depression, homicidal ideation, suicidal ideation or other Endocrinology: Denies change in body appearance, cold intolerance, excessive sweating, heat intolerance, polydipsia, polyuria or other Hematologic/Lymphatic: Denies anemia, easy bleeding, easy bruising, lymphadenopathy or other Integumentary: Denies rashes Allergic/Immunologic: Denies rhinitis, hives, eczema, asthma or other Vital Signs Vital Signs Vital Signs: 06/13/21 20:40 06/13/21 20:44 06/13/21 21:03 Temperature 98.4 F 98.4 F Temperature Source Temporal Temporal Pulse Rate 69 69 64 Respiratory Rate 20 H 17 Blood Pressure 151/77 H 151/77 H 151/77 H Blood Pressure Mean 101 101 101 Pulse Ox 94 95 97 Oxygen Delivery Method Room Air Room Air Room Air 06/13/21 21:10 06/13/21 21:17 06/13/21 21:20 Temperature Temperature Source Pulse Rate 62 Respiratory Rate 12 Blood Pressure 169/81 H 169/81 H Blood Pressure Mean 110 Pulse Ox 97 95 Oxygen Delivery Method Room Air Room Air Weight Weight: 149.6 kg Body Mass Index (BMI) 48.6 Physical Exam Narrative Physical exam: General: Well-nourished, well-developed. Head: Normocephalic, atraumatic, no tenderness Eyes: PERRLA, EOMI ENT, no trauma, moist mucous membranes, no rhinorrhea Neck: Nontender, full range of motion, no spinal tenderness, deformities, step- off CVS: Regular rate and rhythm. S1-S2 present. No murmur, gallop or rub. Respiratory : clear to auscultation bilaterally, chest wall nontender, no wheezing Abdomen: Soft, nontender, nondistended, normal bowel sounds, no masses : Deferred Back: Nontender, no CVA tenderness, no midline spinal tenderness, deformities, step-offs Extremities: Nontender full range of motion, no trauma Skin: Normal color, no trauma, abrasions Neuro: Alert, oriented, cranial nerves II through XII grossly intact. No dysmetria. No dysarthria. No aphasia. Strength 5 out of 5 throughout. No hyperreflexia throughout. Psychiatry: Normal mood. Normal affect. Not depressed. Not anxious. Results Lab / Micro Data Result Diagrams: 06/13/21 20:49 06/13/21 20:49 Labs: Laboratory Results - last 24 hr 06/13/21 20:49: WBC 7.8, RBC 4.61, Hgb 14.0, Hct 41.7, MCV 90.5, MCH 30.4, MCHC 33.6, RDW Std Deviation 43.4, RDW Coeff of Leonie 13.2, Plt Count 147 L, MPV 9.9, Immature Gran % (Auto) 0.300, Neut % (Auto) 55.7, Lymph % (Auto) 32.3, [place] % (Auto) 8.1, Eos % (Auto) 3.5, Baso % (Auto) 0.1, Absolute Neuts (auto) 4.3, Absolute Lymphs (auto) 2.51, Nucleated RBC % 0 06/13/21 20:49: PT 13.1, INR 1.1, APTT 35.1 06/13/21 20:49: Sodium 142, Potassium 4.1, Chloride 108 H, Carbon Dioxide 28.0, Anion Gap 6, BUN 29 H, Creatinine 1.62 H, Estim Creat Clear Calc 43.04, Est GFR (MDRD) Af Amer 55 L, Est GFR (MDRD) Non-Af 45 L, BUN/Creatinine Ratio 17.9, Glucose 150 H, Calcium 9.1, Troponin I High Sens [address] 06/13/21 20:40 IMPRESSION: No acute intracranial abnormality. Chronic involutional and ischemic changes of the brain. Electronically Signed: Herbert Michaud MD at 20:59 EDT Tel , Service support , ADDENDUM: 06/13/212111 IMPRESSION: No acute intracranial abnormality. Chronic involutional and ischemic changes of the brain. N.B. : The above Results were Read Back by Herbert Michaud MD to Dr. Lalo MD, and understanding confirmed on 06/13/2021 21:05:24 (ET). Electronically Signed: Herbert Michaud MD at 20:59 EDT Tel , Service support , Head/Neck CTA 06/13/21 20:43 IMPRESSION: No significant major vessel vaso-occlusive disease in the head or neck. Individualized dose optimization techniques were used for this CT. at 2120 Reported and signed by: Hever Whitaker MD Electronically Signed: Hever Whitaker MD at 21:18 EDT Tel , Service support , ADDENDUM: 06/13/212128 IMPRESSION: No significant major vessel vaso-occlusive disease in the head or neck. Individualized dose optimization techniques were used for this CT. at 2120 Reported and signed by: Hever Whitaker MD N.B. : The above Results were Read Back by Hever Whitaker MD to Dr. Lalo MD, and understanding confirmed on 06/13/2021 21:22:03 (ET). Electronically Signed: Hever Whitaker MD at 21:18 EDT Tel , Service support , Assessment & Plan Assessment/Plan (1) CVA (cerebral vascular accident): QUALIFIERS: CVA mechanism: unspecified Qualified Code(s): I63.9 - Cerebral infarction, unspecified (2) Morbid obesity: PLAN: CVA Serial NINDS NIH Scale ordered Impression of head CT by radiology is as above.: Upon my personal head CT image: I agree with radiologist interpretation Impression of head and neck CTA by radiology as above. Lipid profile and A1c ordered. Physical therapy, occupational therapy and speech therapy to work with patient. N.p.o. until bedside swallow eval. Hold aspirin and Plavix in the setting of patient receiving TPA. High intensity statin continued Permissive hypertension. Control blood pressure with labetalol for blood pre ssure parameters per TPA protocol. 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 Echocardiogram ordered. BMI: 48.7 kilograms per meter square. Complicates care. Lifestyle modification recommended. History of renal transplant: Mycophenolate; tacrolimus; prednisone and Bactrim DS continued. DVT prophylaxis: Not indicated since patient has received TPA. Charges/Coding Visit Charges Inpatient E&M: 65573 Init Hosp L3
--- NOTE | 2021-06-13 22:33 | NURSING ---
called report to Allie Cueva in ICU at [id number]
--- NOTE | 2021-06-13 23:18 | ECHOCS_ITS ---
Reason For Study: CVA Procedure This was a 2D Doppler, Color Flow transthoracic echocardiogram. Technically difficult study due to patients body habitus. Patient unable to lay on left side. Contrast injection performed. Bubble study deferred due to previous Negative result. Exam performed portable in ICU/CCU. Left Ventricle Normal LV size. Mild concentric left ventricular hypertrophy. Left ventricular systolic function is normal. The estimated ejection fraction is 60 %. Stage 1 diastolic dysfunction. No regional wall motion abnormalities noted. Right Ventricle Normal RV size. Normal systolic function. Pulmonic Valve The pulmonic valve is not well visualized. Great Vessels Normal aortic root. Pericardium/Pleural Thickened pericardium. Medication Diluted definity 4ml given slow IV push to enhance endocardial definition. MMode/2D Measurements & Calculations LVIDd: 4.6 cm IVSd: 1.2 cm LVIDs: 2.4 cm LVPWd: 1.3 cm FS: 48.4 % Time Measurements MV dec time: 0.47 sec Doppler Measurements & Calculations MV E max femi: 61.7 cm/sec Lat Peak E' Femi: 5.6 cm/sec Med Peak E' Femi: 5.6 cm/sec MV A max femi: 126.1 cm/sec E/E' lat: 11.1 E/E' med: 11.0 MV E/A: 0.49 MV V2 max: 120.4 cm/sec MV P1/2t max femi: 76.1 cm/sec Ao V2 max: 178.2 cm/sec MV max P.8 mmHg MV P1/2t: 88.5 msec Ao max P.7 mmHg MV V2 mean: 58.3 cm/sec MV dec slope: 251.9 cm/sec2 MV mean P.6 mmHg MVA(P1/2t): 2.5 cm2 MV V2 VTI: 30.6 cm LV V1 max: 135.6 cm/sec PA V2 max: 141.6 cm/sec LV V1 max P.4 mmHg ECHO/Echo Complete W/ Contrast Interpretation Summary Normal LV size. Left ventricular systolic function is normal. The estimated ejection fraction is 60 %. Mild concentric left ventricular hypertrophy. Stage 1 diastolic dysfunction. Contrast injection was performed. Ordering Physician: Donald Vargas Referring Physician: Shanelle Luz M.D. Performed By: Alexander Duran RCS
[2021-06-14] VITALS (52 sets, daily range): BP systolic 102–198; BP diastolic 62–119; PULSE 56–80; RESP 16–28; TEMP 36.6–37.1; O2SAT 91–96; BMI 46.7
[2021-06-14] MEDS: Tacrolimus Anhydrous 1 MG Capsule PO ×3 (01:10→21:11)
[2021-06-14] MEDS: Atorvastatin Calcium 40 MG Tablet PO ×2 (01:10→21:11)
[2021-06-14] MEDS: Mycophenolate Mofetil 250 MG Capsule 500 MG PO ×3 (01:10→21:11)
[2021-06-14] MEDS: predniSONE 5 MG Tablet PO ×2 (01:10→10:59)
[2021-06-14] MEDS: Tolterodine Tartrate 2 MG CAP.SA PO ×2 (01:11→10:52)
[2021-06-14] MEDS: Allopurinol 300 MG Tablet PO ×2 (01:11→21:11)
[2021-06-14] MEDS: Labetalol (Prefilled) 20 MG/4 ML IV (02:52)
[2021-06-14] MEDS: Nicardipine HCl-0.9% Sod Chlor 20 MG/200 ML IV.SOLN 50 MG IV (03:28)
[2021-06-14 05:44] LABS: Absolute Lymphocyte Count 1.86 X10^3/uL (0.83-4.51); Absolute Neutrophil Count 4.4 X10^3/uL (2.0-7.7); Eosinophil# 0.17 X10^3/uL; Eosinophils% 2.5 % (0-5); Hematocrit 39.3 % (40-54); Lymphocyte # 1.86 X10^3/ul (0.83-4.51); Lymphocyte % 27.2 % (19-41); Mean Corp Hgb Conc 33.1 g/dL (32-36); Mean Corpuscular Hgb 29.9 pg (27.0-32.0); Mean Corpuscular Volume 90.3 fL (80-94); Mean Platelet Vol. 10.5 fl (6.2-12.0); Monocyte# 0.42 X10^3/uL; Monocyte% 6.1 % (0-10); NRBC Flagged by Analyzer 0 % (0-5); Neutrophil # 4.36 X10^3/uL (2.7-7.7); Neutrophil % 63.9 % (47-70); Platelet Count 153 K/mm3 (150-450); RBC Distribution Width SD 42.5 fl (35.1-43.9); Red Blood Count 4.35 M/mm3 (4.6-6.2); White Blood Count 6.8 K/mm3 (4.4-11.0)
[2021-06-14 06:13] LABS: Anion Gap 6 (5-15); BUN 23 mg/dL (7-18); BUN/Creat Ratio 16.4 RATIO (10-20); Calcium,Total 8.6 mg/dL (8.5-10.1); Chloride 111 mmol/L (98-107); Cholesterol 113 mg/dL (200); EST Glomerular Filtration Rate 53 mL/min (>60); Est Glom Filt Rate - Afr Amer 65 mL/min (>60); Estimated Creatinine Clearance 51.42 ml/min; Glucose 172 mg/dL (74-106); High Density Lipoprotein 31 mg/dL; Sodium Level 142 mmol/L (136-145); Triglycerides 170 mg/dL; Very Low Density Lipoprotein 34 mg/dL (5-40)
--- NOTE | 2021-06-14 06:48 | CON.PCM.CC_ITS ---
Assessment & Plan Assessment/Plan (1) CVA (cerebral vascular accident): QUALIFIERS: CVA mechanism: unspecified Qualified Code(s): I63.9 - Cerebral infarction, unspecified (2) Morbid obesity: (3) Liver transplant recipient: (4) Kidney transplant recipient: PLAN: RECOMMENDATIONS: 1. Await swallow evaluation 2. Reinitiate baseline antihypertensive medications if passes swallow 3. Wean Cardene as tolerated 4. Continue with post TPA protocol 5. Potentially sign off if able to discontinue Cardene IMPRESSIONS: 1. Acute CVA status post TPA Patient has responded well to therapy. There does not appear to be any bleeding complications noted. Patient should continue with the post TPA protocol. Patient did have significant hypertension, but is on multiple blood pressure medications at baseline. Patient was initiated on Cardene with good response. Patient does need to be evaluated by speech, but hopefully multiple baseline antihypertensives can be reinitiated. 2. Accelerated hypertension Clinical suspicion for elevated blood pressure secondary to lack of baseline medications. Patient does take multiple antihypertensives at baseline. Once patient is evaluated by speech therapy, will reinitiate and see if Cardene can be discontinued. Permissive hypertension is appropriate. 3. Morbid obesity/history of kidney and liver transplant/PAUL/osteoarthritis/asthma/lower extremity edema Complicates care, management, recovery and prognosis. Transplant medication should be continued. Patient does have some lower extremity VERNON, but would not recommend Lasix at this time as patient recently had significant contrast associated with CVA work-up. Continue with baseline PAUL settings, but this may need to be reevaluated in the future with a compliance report given his CVA. HPI Consult Data Date of Consult: 06/14/21 HPI Narrative HPI Narrative: TOM GALLAGHER is a 70 M, with past medical history listed below, who presents to [facility] on 06/13/2021 secondary to sudden onset of right facial droop and expressive aphasia. Patient reportedly was at home in his usual level of health and then abruptly had an inability to speak at approximately 8 PM. Paramedics had noticed a facial droop, but this had been resolved by time the patient arrived to the ER. Patient did not report any prodromal fever, chills, nausea or vomiting. No hypoglycemic episodes have been reported. Patient does have a history of transplant, but reportedly was compliant with his medications. On arrival to the ER, patient did have expressive aphasia. Patient did not have any headache or problems with swallowing. Patient's NIH assessment was noted to be 2. The patient was slightly hypertensive at 151/77, but saturating well on room air. Initial evaluation with CT of the head was unremarkable and a CTA did not show a large thromboembolic occlusion. Teleneurology was consulted and TPA was recommended after platelets came back at greater than 100,000. Patient received TPA at approximately 9:17 PM and then transferred to the intensive care unit. Since being in the intensive care unit, patient has had to be placed on a Cardene drip secondary to hypertension. Patient still has some mild expressive aphasia, but NIH is gone from a peak of 3 to as low as 1. Patient is reporting a burning sensation in bilateral arms that he states is not new. This is not exacerbated by palpation. Patient is not reporting any focal weakness or numbness elsewhere. Review of systems otherwise negative from a constitutional, HEENT, respiratory, cardiovascular, GI, genitourinary, musculoskeletal, skin, neurologic, psychiatric and hematologic system unless stated above. [facility] Medical History Acute coronary syndrome with high troponin Anasarca Anemia Asthma Chronic nonalcoholic liver disease Chronic pain syndrome Cirrhosis of liver Elevated troponin End stage renal failure on dialysis Essential (primary) hypertension GERD (gastroesophageal reflux disease) History of CVA (cerebrovascular accident) (11/2017) History of non-ST elevation myocardial infarction (NSTEMI) (03/30/20) Hydronephrosis Hypertensive emergency Left renal artery stenosis Morbid obesity Obesity Obstructive sleep apnea Osteoarthritis Renal calculi Segmental and somatic dysfunction of lumbar region Superficial thrombophlebitis TIA (transient ischemic attack) Home Medications allopurinol 300 mg tablet 300 mg PO QHS 09/18/19 [History Last Taken 03/28/20 22:00] pantoprazole 40 mg tablet,delayed release 40 mg PO DAILY 12/20/19 [History Last Taken 03/29/20 08:00] oxybutynin chloride 10 mg PO DAILY 03/29/20 [History Last Taken 03/29/20 08:00] prednisone 5 mg PO DAILY 03/29/20 [History Last Taken Unknown] aspirin 81 mg tablet,delayed release 81 mg PO DAILY 04/15/20 [History Last Taken Unknown] mycophenolate mofetil 500 mg tablet 500 mg PO BID 04/15/20 [History Last Taken Unknown] tacrolimus 1 mg capsule,extended release 24 hr 1 mg PO BID cap 04/15/20 [History Last Taken Unknown] zafirlukast 20 mg tablet 20 mg PO Q12H 04/15/20 [History Last Taken Unknown] sulfamethoxazole 400 mg-trimethoprim 80 mg tablet 2 tab PO MOWEFR tab 07/17/20 [History Last Taken Unknown] carvedilol 12.5 mg tablet 12.5 mg PO BID #180 tab 09/01/20 [Rx Last Taken Unknown] carvedilol 25 mg tablet 25 mg PO BID #180 tab 09/01/20 [Rx Last Taken Unknown] nifedipine 90 mg tablet,extended release 24 hr 90 mg PO DAILY #90 tab 12/02/20 [Rx Last Taken Unknown] clopidogrel 75 mg tablet 75 mg PO DAILY #90 tab 01/13/21 [Rx Last Taken Unknown] atorvastatin 40 mg tablet 40 mg PO QHS #90 tab 03/01/21 [Rx Last Taken Unknown] doxazosin 4 mg PO QHS 06/13/21 [History Last Taken Unknown] losartan 50 mg PO BID 06/13/21 [History Last Taken Unknown] Allergy/AdvReac Type Severity Reaction Status Date / Time morphine Allergy Intermediate Unknown Verified 06/11/21 12:29 metformin Allergy Other Verified 06/11/21 12:29 pregabalin [From Lyrica] Allergy Other Verified 06/11/21 12:29 Family History Other PGM diabetes Surgical History History of knee replacement History of left heart catheterization (04/03/20) History of stent insertion of renal artery (2014) Kidney transplant recipient (07/13/12) Liver transplant recipient (07/13/12) Social History household members: spouse Smoking Status: Never smoker second hand exposure: No alcohol intake: never substance use type: does not use caffeine: Yes frequency: 3-4 times per week ROS ROS Narrative See HPI Physical Exam Const alert, oriented x3 and no apparent distress General Appearance: cooperative and well developed Nutritional Appearance: morbidly obese HEENT normocephalic, head/scalp atraumatic and moist oral mucous membranes Eyes PERRL and EOMs intact bilaterally Eyes Narrative: Glasses in place. Neck full ROM, no lymphadenopathy and no meningeal signs General: trachea midline Carotids: Negative for bruit Chest inspection of chest normal Chest: symmetrical chest wall rise; Negative for crepitus Resp normal respiratory effort and no use of accessory muscles Effort and Inspection: able to speak in complete sentences Auscultation: diminished lung sounds; Negative for rales, rhonchi or wheezes Percussion: Negative for dullness Cardio regular rate, regular rhythm, S1 normal heart sound, S2 normal heart sound, no murmurs, no rub and no gallops Cardio Narrative: Normal sinus rhythm noted on telemetry GI normal to inspection, nondistended, normoactive bowel sounds no CVA tenderness Extremity General Extremity: edema bilateral (2+) lower extremity; Negative for clubbing or cyanosis Skin no rashes or lesions noted Neuro oriented x3, CN's II-XII intact bilaterally and moves all extremities Neuro Narrative: Mild expressive aphasia noted with difficulty with word finding. Psych cooperative and affect normal Lab / Micro Data Result Diagrams: 06/14/21 05:30 06/14/21 05:30 Labs: Laboratory Results - last 24 hr 06/13/21 20:49: WBC 7.8, RBC 4.61, Hgb 14.0, Hct 41.7, MCV 90.5, MCH 30.4, MCHC 33.6, RDW Std Deviation 43.4, RDW Coeff of Leonie 13.2, Plt Count 147 L, MPV 9.9, Immature Gran % (Auto) 0.300, Neut % (Auto) 55.7, Lymph % (Auto) 32.3, [place] % (Auto) 8.1, Eos % (Auto) 3.5, Baso % (Auto) 0.1, Absolute Neuts (auto) 4.3, Absolute Lymphs (auto) 2.51, Nucleated RBC % 0 06/13/21 20:49: PT 13.1, INR 1.1, APTT 35.1 06/13/21 20:49: Sodium 142, Potassium 4.1, Chloride 108 H, Carbon Dioxide 28.0, Anion Gap 6, BUN 29 H, Creatinine 1.62 H, Estim Creat Clear Calc 43.04, Est GFR (MDRD) Af Amer 55 L, Est GFR (MDRD) Non-Af 45 L, BUN/Creatinine Ratio 17.9, Glucose 150 H, Calcium 9.1, Troponin I High Sens 24 06/14/21 05:30: WBC 6.8, RBC 4.35 L, Hgb 13.0, Hct 39.3 L, MCV 90.3, MCH 29.9, MCHC 33.1, RDW Std Deviation 42.5, RDW Coeff of Leonie 13.0, Plt Count 153, MPV 10.5, Immature Gran % (Auto) 0.300, Neut % (Auto) 63.9, Lymph % (Auto) 27.2, [place] % (Auto) 6.1, Eos % (Auto) 2.5, Baso % (Auto) 0.0, Absolute Neuts (auto) 4.4, Absolute Lymphs (auto) 1.86, Nucleated RBC % 0 06/14/21 05:30: Sodium 142, Potassium 4.0, Chloride 111 H, Carbon Dioxide 25.0, Anion Gap 6, BUN 23 H, Creatinine 1.40 H, Estim Creat Clear Calc 51.42, Est GFR (MDRD) Af Amer 65, Est GFR (MDRD) Non-Af 53 L, BUN/Creatinine Ratio 16.4, G lucose 172 H, Calcium 8.6, Triglycerides 170, Cholesterol 113, LDL Cholesterol 48, VLDL Cholesterol 34, HDL Cholesterol 31 L Radiology Impression Brain CT 06/13/21 20:40 IMPRESSION: No acute intracranial abnormality. Chronic involutional and ischemic changes of the brain. Electronically Signed: Herbert Michaud MD at 20:59 EDT Tel , Service support , ADDENDUM: 06/13/212111 IMPRESSION: No acute intracranial abnormality. Chronic involutional and ischemic changes of the brain. N.B. : The above Results were Read Back by Herbert Michaud MD to Dr. Lalo MD, and understanding confirmed on 06/13/2021 21:05:24 (ET). Electronically Signed: Herbert Michaud MD at 20:59 EDT Tel , Service support , Chest X-Ray 06/13/21 20:42 IMPRESSION: Cardiomegaly without radiographic evidence of acute cardiopulmonary disease. at 0000 Reported and signed by: Hever Whitaker MD Electronically Signed: Hever Whitaker MD at 23:59 EDT Tel , Service support , Head/Neck CTA 06/13/21 20:43 IMPRESSION: No significant major vessel vaso-occlusive disease in the head or neck. Individualized dose optimization techniques were used for this CT. at 2120 Reported and signed by: Hever Whitaker MD Electronically Signed: Hever Whitaker MD at 21:18 EDT Tel , Service support , ADDENDUM: 06/13/212128 IMPRESSION: No significant major vessel vaso-occlusive disease in the head or neck. Individualized dose optimization techniques were used for this CT. at 2120 Reported and signed by: Hever Whitaker MD N.B. : The above Results were Read Back by Hever Whitaker MD to Dr. Lalo MD, and understanding confirmed on 06/13/2021 21:22:03 (ET). Electronically Signed: Hever Whitaker MD at 21:18 EDT Tel , Service support , Charges/Coding Visit Charges Inpatient E&M: 26359 Init Hosp L3
[2021-06-14] MEDS: Nicardipine HCl-0.9% Sod Chlor 20 MG/200 ML IV.SOLN 25 MG IV (07:04)
[2021-06-14 08:04] LABS: Hemoglobin A1c 6.1 % (3.8-5.6)
--- NOTE | 2021-06-14 09:40 | PN.HOSP_ITS ---
Subjective Subjective Received TPA last night, says that he is back to his baseline. States that he has tried multiple times to lose weight and he is just unable to Objective Data Objective Data Vital Signs: Vital Signs Temp Pulse Resp BP Pulse Ox 98.6 F 70 20 H 102/62 93 06/14/21 08:00 06/14/21 09:00 06/14/21 09:00 06/14/21 09:00 06/14/21 09:00 Oxygen Delivery Method Room Air Weight: 324 lb 15.382 oz Body Mass Index (BMI) 46.7 Intake & Output: Intake and Output for Last 24 Hours 06/13/21 06/14/21 06/15/21 03:59 03:59 03:59 Intake Total 195.17 / 207.67 145.42 / 145.42 Output Total 900 / 900 225 / 225 Balance -704.83 / -692.33 -79.58 / -79.58 Lab / Micro Data Result Diagrams: 06/14/21 05:30 06/14/21 05:30 Labs: Laboratory Results - last 24 hr 06/13/21 20:49: WBC 7.8, RBC 4.61, Hgb 14.0, Hct 41.7, MCV 90.5, MCH 30.4, MCHC 33.6, RDW Std Deviation 43.4, RDW Coeff of Leonie 13.2, Plt Count 147 L, MPV 9.9, Immature Gran % (Auto) 0.300, Neut % (Auto) 55.7, Lymph % (Auto) 32.3, [place] % (Auto) 8.1, Eos % (Auto) 3.5, Baso % (Auto) 0.1, Absolute Neuts (auto) 4.3, Absolute Lymphs (auto) 2.51, Nucleated RBC % 0 06/13/21 20:49: PT 13.1, INR 1.1, APTT 35.1 06/13/21 20:49: Sodium 142, Potassium 4.1, Chloride 108 H, Carbon Dioxide 28.0, Anion Gap 6, BUN 29 H, Creatinine 1.62 H, Estim Creat Clear Calc 43.04, Est GFR (MDRD) Af Amer 55 L, Est GFR (MDRD) Non-Af 45 L, BUN/Creatinine Ratio 17.9, Glucose 150 H, Calcium 9.1, Troponin I High Sens 24 06/14/21 05:30: WBC 6.8, RBC 4.35 L, Hgb 13.0, Hct 39.3 L, MCV 90.3, MCH 29.9, MCHC 33.1, RDW Std Deviation 42.5, RDW Coeff of Leonie 13.0, Plt Count 153, MPV 10.5, Immature Gran % (Auto) 0.300, Neut % (Auto) 63.9, Lymph % (Auto) 27.2, [place] % (Auto) 6.1, Eos % (Auto) 2.5, Baso % (Auto) 0.0, Absolute Neuts (auto) 4.4, Absolute Lymphs (auto) 1.86, Nucleated RBC % 0 06/14/21 05:30: Sodium 142, Potassium 4.0, Chloride 111 H, Carbon Dioxide 25.0, Anion Gap 6, BUN 23 H, Creatinine 1.40 H, Estim Creat Clear Calc 51.42, Est GFR (MDRD) Af Amer 65, Est GFR (MDRD) Non-Af 53 L, BUN/Creatinine Ratio 16.4, Glucose 172 H, Calcium 8.6, Triglycerides 170, Cholesterol 113, LDL Cholesterol 48, VLDL Cholesterol 34, HDL Cholesterol 31 L 06/14/21 05:30: Hemoglobin A1c 6.1 H Radiography Diagnostic Testing: Radiology Impression Brain CT 06/13/21 20:40 IMPRESSION: No acute intracranial abnormality. Chronic involutional and ischemic changes of the brain. Electronically Signed: Herbert Michaud MD at 20:59 EDT Tel , Service support , ADDENDUM: 06/13/212111 IMPRESSION: No acute intracranial abnormality. Chronic involutional and ischemic changes of the brain. N.B. : The above Results were Read Back by Herbert Michaud MD to Dr. Lalo MD, and understanding confirmed on 06/13/2021 21:05:24 (ET). Electronically Signed: Herbert Michaud MD at 20:59 EDT Tel , Service support , Chest X-Ray 06/13/21 20:42 IMPRESSION: Cardiomegaly without radiographic evidence of acute cardiopulmonary disease. at 0000 Reported and signed by: Hever Whitaker MD Electronically Signed: Hever Whitaker MD at 23:59 EDT Tel , Service support , Head/Neck CTA 06/13/21 20:43 IMPRESSION: No significant major vessel vaso-occlusive disease in the head or neck. Individualized dose optimization techniques were used for this CT. at 2120 Reported and signed by: Hever Whitaker MD Electronically Signed: Hever Whitaker MD at 21:18 EDT Tel , Service support , ADDENDUM: 06/13/212128 IMPRESSION: No significant major vessel vaso-occlusive disease in the head or neck. Individualized dose optimization techniques were used for this CT. at 2120 Reported and signed by: Hever Whitaker MD N.B. : The above Results were Read Back by Hever Whitaker MD to Dr. Lalo MD, and understanding confirmed on 06/13/2021 21:22:03 (ET). Electronically Signed: Hever Whitaker MD at 21:18 EDT Tel , Service support , Physical Exam Const alert, oriented x3 and no apparent distress General Appearance: cooperative HEENT normocephalic and moist oral mucous membranes Eyes PERRL, EOMs intact bilaterally and conjunctivae normal Neck supple and no JVD Resp normal respiratory effort, no retractions, no use of accessory muscles and clear to auscultation bilaterally Auscultation: Negative for crackles, rales, rhonchi or wheezes Cardio regular rate, regular rhythm, S1 normal heart sound, S2 normal heart sound and no murmurs GI soft to palpation, non-tender and non-distended; Negative for hepatosplenomegaly Extremity no clubbing, cyanosis or edema Skin no rashes or lesions noted Neuro no focal motor deficits and no sensory deficits noted Psych affect normal Appearance: appropriate Assessment & Plan Assessment/Plan (1) CVA (cerebral vascular accident): QUALIFIERS: CVA mechanism: unspecified Qualified Code(s): I63.9 - Cerebral infarction, unspecified (2) Morbid obesity: PLAN: 1. CVA/morbid obesity -Was found to have aphasia on admission and was given TPA -States that he has had resolution of the symptoms -MRI this evening, CTA of the head and neck was unremarkable -Currently on Cardene drip with goal of permissive hypertension, once he passes a swallow study can restart his home blood pressure medication -Echo is pending -Continue with statin, and will restart his aspirin and Plavix on discharge -BMI of 48.7, he states that somebody told him that he was on a starvation diet I discussed with him that if he was on a starvation diet he would not be 324 pounds. Did have a discussion with him on lifestyle modifications including exercise and diet -PT/OT/speech 2. History of a renal transplant -Once he passes his speech therapy, can restart his home mycophenolate, tacrolimus, prednisone, Bactrim DS DVT: Status post TPA Charges/Coding Visit Charges Inpatient E&M: 47342 Subs Hosp L2
[2021-06-14] MEDS: Smz/Tmp Ds Tablet 0.5 TABLET PO (10:51)
[2021-06-14] MEDS: Pantoprazole Sodium 40 MG Tablet PO (10:53)
[2021-06-14] MEDS: Carvedilol 12.5 MG Tablet PO ×2 (11:00→21:11)
[2021-06-14] MEDS: Carvedilol 25 MG Tablet PO ×2 (11:00→21:11)
[2021-06-14] MEDS: 0.9% Saline Lock 10 ML Syringe IV ×3 (11:12→23:36)
--- NOTE | 2021-06-14 12:57 | CASEMGMT ---
Social Work Assessment Referral Source: CM Reason for Referral: Discharge Planning, PHQ 9 due to positive CVA PCP: Dr. Luz Preferred Pharmacy: [facility] Insurance: Medicare Living Will/HPOA: Serina reports is HPOA and forms on chart. Living Arrangements: Home with , son, [id number], and 2 grandchildren Prior Level of Functioning: Independent, uses walker as needed DME: walker Assessment: Met with patient in room. Introduced role and reason for referral. Patient reports lives home with , son, [id number] and grandchildren as son is in process of building a home. Patient reports is normally independent at home, still drives. Patient reports uses a walker as needed for assistance with ambulation. PHQ 9 completed with patient. Patient scored 0. Patient gave permission for this worker to call to confirm discharge plan. Call to patient?s Serina. Inquired about patient?s baseline for cognition. reports normally memory is ?fairly good.? reports patient is hard of hearing and since transplant has had some ?brain fog.? reports plan for discharge is home. Plan: Home with family Nino Li MSW, [employer]
[2021-06-14] MEDS: NIFEdipine 90 MG Tablet PO (18:05)
--- NOTE | 2021-06-14 18:55 | CT_ITS ---
STUDY: CT BRAIN WITHOUT CONTRAST REASON FOR EXAM: Male, 70 years old. 24 POST TPA RADIATION DOSAGE (If Supplied By Facility): CTDIvol = ( 44.99 ) mGy, DLP = ( 829.85 ) mGycm TECHNIQUE: Transaxial CT imaging of the brain was performed without administration of intravenous contrast material. Individualized dose optimization techniques were used for this CT. COMPARISON: 06/13/2021. FINDINGS: Normal soft tissue structures. Normal calvarium. Calcification of cavernous carotid and vertebral arteries Atrophy and advanced periventricular white matter ischemic changes.. Normal basal ganglia and thalami. Normal brainstem. Normal cerebellum. There is no intracranial hemorrhage. There are no findings of an acute ischemic infarction. Mucosal thickening in the maxillary ethmoid and sphenoid sinuses CT/Brain/Head without Contrast IMPRESSION: Atrophy and advanced periventricular white matter ischemic change. No evidence for acute bleed. Electronically Signed: Tyrese Forte MD at 19:35 EDT , Service support ,
[2021-06-14] MEDS: hydrALAZINE 20 MG/ML Vial 10 MG IV (20:13)
[2021-06-14] MEDS: Losartan Potassium 50 MG Tablet PO (21:11)
[2021-06-14] MEDS: Montelukast 10 MG Tablet PO (21:11)
[2021-06-14] MEDS: Nystatin Powder 15gm Bottle 1 APPLIC TOPICAL (21:11)
[2021-06-14] MEDS: Doxazosin 4 MG Tablet PO (21:11)
[2021-06-14] MEDS: Ondansetron 4 MG/2 ML Vial IV (23:36)
[2021-06-15] VITALS (10 sets, daily range): BP systolic 163–185; BP diastolic 87–106; PULSE 71–82; RESP 18; TEMP 37.2–37.6; O2SAT 92–94; BMI 46.7
[2021-06-15] MEDS: hydrALAZINE 20 MG/ML Vial 10 MG IV (00:39)
[2021-06-15] MEDS: 0.9% Saline Lock 10 ML Syringe IV (00:40)
[2021-06-15] MEDS: oxyCODONE 5 MG Tablet PO (07:37)
[2021-06-15] MEDS: Ondansetron 4 MG/2 ML Vial IV (07:37)
[2021-06-15] MEDS: predniSONE 5 MG Tablet PO (07:38)
[2021-06-15] MEDS: Acetaminophen 325 MG Tablet 650 MG PO (07:56)
--- NOTE | 2021-06-15 09:00 | MRI_ITS ---
STUDY: MRI BRAIN WITHOUT CONTRAST REASON FOR EXAM: Male, 70 years old. CVA --had TPA @ 2105 06/13/21, confusion TECHNIQUE: Standardized multiplanar fat and water weighted pulse sequences were obtained. COMPARISON: 06/14/2021 CT of the head FINDINGS: There is mild cerebral atrophy with widening of the extra-axial spaces and ventricular dilatation. There are multiple confluent white matter hyperintensities, distributed throughout the deep white matter tracts of the cerebral hemispheres, consistent with severe chronic white matter ischemic changes. Normal bilateral basal ganglia. Normal thalami. There is no extra-axial fluid accumulation. Normal sella turcica, pituitary gland, infundibular stalk, optic chiasm and hypothalamus. Normal tectal plate and pineal gland. Normal midbrain, sharee and medulla. Normal cerebellum. Normal basal cisterns. MRI/Brain without Contrast IMPRESSION: No acute intracranial abnormality. Severe chronic microvascular ischemic changes. Electronically Signed: Elton Dixon MD at 11:55 EDT Tel , Service support ,
[2021-06-15] MEDS: Mycophenolate Mofetil 250 MG Capsule 500 MG PO (09:18)
[2021-06-15] MEDS: NIFEdipine 90 MG Tablet PO (09:18)
[2021-06-15] MEDS: Nystatin Powder 15gm Bottle 1 APPLIC TOPICAL (09:18)
[2021-06-15] MEDS: Losartan Potassium 50 MG Tablet PO (09:19)
[2021-06-15] MEDS: Tolterodine Tartrate 2 MG CAP.SA PO (09:19)
[2021-06-15] MEDS: Carvedilol 25 MG Tablet PO (09:19)
[2021-06-15] MEDS: Carvedilol 12.5 MG Tablet PO (09:19)
[2021-06-15] MEDS: Tacrolimus Anhydrous 1 MG Capsule PO (09:19)
[2021-06-15] MEDS: Pantoprazole Sodium 40 MG Tablet PO (09:19)
[2021-06-15] MEDS: Clopidogrel Bisulfate 75 MG Tablet PO (09:21)
--- NOTE | 2021-06-15 11:11 | RAD_ITS ---
STUDY: X-RAY CHEST REASON FOR EXAM: Male, 70 years old. Fever after emesis TECHNIQUE: Single AP portable view of the chest. COMPARISON: Comparison is made with prior study 06/13/2021. FINDINGS: Stable mild increased markings in the right upper lobe. There is no demonstrated pleural abnormality. There is mild cardiac enlargement. Normal mediastinum and deandre. Normal visualized pulmonary arteries. There is atherosclerotic tortuosity of the aortic arch and descending thoracic aorta. Normal visualized thoracic spine. Normal visualized ribs, clavicles, and shoulders. I suspect a hiatal hernia. RAD/Chest 1 View (Portable) IMPRESSION: Stable mild increased markings in the right upper lobe suggestive of atelectasis. Electronically Signed: Cliff Priest MD at 12:37 EDT , Service support ,
--- NOTE | 2021-06-15 12:52 | PCM.DC ---
Discharge Instructions Diet Discharge Diet: Low fat / Low cholesterol and 2000 Calorie Control Diet Activity Discharge Activity: Return to Normal Activity Dressing / Incision Call your doctor if you observe: Fever of 101 or Higher, Shortness of breath, Dizziness, Fainting spells, Swelling in the ankles, Chest pain and Increased palpitations (irregular heartbeat) Follow Up Care Test Results: Test results from this visit will be discussed in further detail at your follow-up appointment, if applicable. Discharge Plan Admission Admit Date/Time: 06/13/21 21:30 Attending Provider: Alvarado Chávez Primary Care Provider: Shanelle Luz Consulting Providers: Ezio Chambers Instructions Additional Instructions / Restrictions: MRI was negative for stroke, Discharge Orders/Prescriptions Prescriptions: Continued allopurinol 300 mg tablet 300 mg PO QHS RF: 0 pantoprazole [Protonix] 40 mg tablet,delayed release (DR/EC) 40 mg PO DAILY RF: 0 aspirin [Adult Low Dose Aspirin] 81 mg tablet,delayed release (DR/EC) 81 mg PO DAILY RF: 0 mycophenolate mofetil [CellCept] 500 mg tablet 500 mg PO BID RF: 0 zafirlukast [Accolate] 20 mg tablet 20 mg PO Q12H RF: 0 tacrolimus 1 mg capsule,extended release 24hr 1 mg PO BID RF: 0 oxybutynin chloride 10 MG tablet extended release 24hr 10 mg PO DAILY RF: 0 prednisone 5 MG tablet 5 mg PO DAILY RF: 0 sulfamethoxazole-trimethoprim 400-80 mg tablet 2 tab PO MOWEFR RF: 0 losartan 50 mg tablet 50 mg PO BID RF: 0 doxazosin 8 mg tablet 4 mg PO QHS RF: 0 oxycodone 5 mg Tablet 5 mg PO TID PRN (Reason: Pain) RF: 0 carvedilol [Coreg] 25 mg tablet 25 mg PO BID Qty: 180 RF: 3 carvedilol [Coreg] 12.5 mg tablet 12.5 mg PO BID Qty: 180 RF: 3 nifedipine [Procardia XL] 90 mg tablet extended release 24hr 90 mg PO DAILY Qty: 90 RF: 3 clopidogrel 75 mg tablet 75 mg PO DAILY Qty: 90 RF: 3 atorvastatin 40 mg tablet 40 mg PO QHS Qty: 90 RF: 3 Referrals / Follow Up: Shanelle Luz DO [Primary Care Provider] - Within 1 Week [place] MD [NON-STAFF] - Within 1 Month Disposition Disposition (needs filled in before D/C Order can be placed): Home, Self Care
--- NOTE | 2021-06-15 13:56 | PCM.DC.SUM ---
Providers Date of Admission: 06/13/21 Primary Care Physician: Dr. Shanelle Luz DO Consultations 06/13/21 23:18 Consult: [employer] Professor / Pulmonary Medicine Routine Consulting Provider: Ezio Chambers Reason for Consult: stroke for alteplase EMERGENT Consult: No MD Notified: Yes Date Notified: 06/13/21 Time Notified: 21:34 Method of Notification: Text Reason For Visit: CVA Diagnosis Discharge Diagnosis (1) CVA (cerebral vascular accident): Status: Acute Code(s): I63.9 - Cerebral infarction, unspecified Qualifiers: CVA mechanism: unspecified Qualified Code(s): I63.9 - Cerebral infarction, unspecified (2) Morbid obesity: Status: Acute Code(s): E66.01 - Morbid (severe) obesity due to excess calories Medications at Discharge Home Medications allopurinol 300 mg tablet 300 mg PO QHS 09/18/19 pantoprazole 40 mg tablet,delayed release 40 mg PO DAILY 12/20/19 oxybutynin chloride 10 mg PO DAILY 03/29/20 prednisone 5 mg PO DAILY 03/29/20 aspirin 81 mg tablet,delayed release 81 mg PO DAILY 04/15/20 mycophenolate mofetil 500 mg tablet 500 mg PO BID 04/15/20 tacrolimus 1 mg capsule,extended release 24 hr 1 mg PO BID cap 04/15/20 zafirlukast 20 mg tablet 20 mg PO Q12H 04/15/20 sulfamethoxazole 400 mg-trimethoprim 80 mg tablet 2 tab PO MOWEFR tab 07/17/20 carvedilol 12.5 mg tablet 12.5 mg PO BID #180 tab 09/01/20 carvedilol 25 mg tablet 25 mg PO BID #180 tab 09/01/20 nifedipine 90 mg tablet,extended release 24 hr 90 mg PO DAILY #90 tab 12/02/20 clopidogrel 75 mg tablet 75 mg PO DAILY #90 tab 01/13/21 atorvastatin 40 mg tablet 40 mg PO QHS #90 tab 03/01/21 doxazosin 4 mg PO QHS 06/13/21 losartan 50 mg PO BID 06/13/21 oxycodone 5 mg PO TID PRN 06/14/21 Hospital Course Operations None Procedures 2-D Echocardiogram Summary of Care Provided Minutes Spent on Discharge: 37 Hospital Course: Per HPI: TOM ELLIOTT, is a 70 M with a significant history of kidney and liver transplant who presents to the emergency department with expressive aphasia. Patient symptoms started about 40 minutes before presentation. Also reportedly patient had facial droop. Patient received TPA at the emergency department. At the emergency department patient was evaluated by telemetry neurologist who did not notice any facial droop but noticed some mild expressive aphasia and dysarthria. Hospital Course: 1. CVA/morbid obesity/HTN/VYH-11-jobn-old male presented to the hospital with expressive aphasia. The case was discussed with [facility] neurology and the decision to give him TPA was made. He has completely recovered from any aphasia and has no further issues, other than hypertension and had been on a Cardene drip and then ultimately transition to his home blood pressure medications. Repeat CT scan did not demonstrate a head bleed and MRI this morning was also negative for stroke. He is okay with resuming all of his home medications including antiplatelets at this time. Overnight he did have an episode of emesis though he says he feels fine and he thinks that it is likely due to lack of p.o. intake. He did spike a little bit of a temperature so chest x-ray was obtained which showed right upper lobe atelectasis with no signs of pneumonia or pneumonitis. I discussed with him the plan for discharge today he expressed understanding of the risk associated with home and would like to go home today. I do recommend he follow-up with his PCP in 3 to 5 days and neurology as an outpatient for further monitoring. I also discussed with him the issue with his morbid obesity with a BMI of 46 in relation to strokes as well as his other medical disorders. He states that he is unable to lose weight and nothing he is ever done was able to make him lose weight. He states that he was told that he already is on a starvation diet despite being over 300 pounds. I did discuss with him that he should be evaluated as an outpatient with a dietitian for further recommendations on weight loss as well as a diet that he would be able to be consistent with. Otherwise his home blood pressure medications were continued as was his cholesterol medications. 2. History of both the renal and liver transplant, BPH are chronic medical conditions which complicate his care. His home medications were continued were appropriate. Physical Exam Const alert, oriented x3 and no apparent distress General Appearance: cooperative HEENT normocephalic and moist oral mucous membranes Eyes PERRL, EOMs intact bilaterally and conjunctivae normal Neck supple and no JVD Resp normal respiratory effort, no retractions, no use of accessory muscles and clear to auscultation bilaterally Auscultation: Negative for crackles, rales, rhonchi or wheezes Cardio regular rate, regular rhythm, S1 normal heart sound, S2 normal heart sound and no murmurs GI soft to palpation, non-tender and non-distended; Negative for hepatosplenomegaly Inspection: central obesity Extremity no clubbing, cyanosis or edema Skin no rashes or lesions noted Neuro no focal motor deficits and no sensory deficits noted Psych affect normal Appearance: appropriate Weight / BMI Weight Weight: 320 lb 12.361 oz Body Mass Index (BMI) 46.7 ABG / Lab / Microbiology Data Result Diagrams: 06/14/21 05:30 06/14/21 05:30 Radiography Diagnostic Testing: Radiology Impression Brain CT 06/14/21 18:55 IMPRESSION: Atrophy and advanced periventricular white matter ischemic change. No evidence for acute bleed. Electronically Signed: Tom Forte MD at 19:35 EDT , Service support , Brain MRI 06/15/21 09:00 IMPRESSION: No acute intracranial abnormality. Severe chronic microvascular ischemic changes. Electronically Signed: Elton Dixon MD at 11:55 EDT Tel , Service support , Chest X-Ray 06/15/21 11:11 IMPRESSION: Stable mild increased markings in the right upper lobe suggestive of atelectasis. Electronically Signed: Cliff Priest MD at 12:37 EDT , Service support , D/C Instructions Discharge Diet: Low fat / Low cholesterol and 2000 Calorie Control Diet Call your doctor if you observe: Fever of 101 or Higher, Shortness of breath, Dizziness, Fainting spells, Swelling in the ankles, Chest pain and Increased palpitations (irregular heartbeat) Meaningful Use Info Meaningful Use Diagnoses (Choose all that apply): None applicable Discharge Plan Admission Admit Date/Time: 06/13/21 21:30 Attending Provider: Alvarado Chávez Primary Care Provider: Shanelle Luz Consulting Providers: Ezio Chambers Instructions Additional Instructions / Restrictions: MRI was negative for stroke, Discharge Orders/Prescriptions Prescriptions: Continued allopurinol 300 mg tablet 300 mg PO QHS RF: 0 pantoprazole [Protonix] 40 mg tablet,delayed release (DR/EC) 40 mg PO DAILY RF: 0 aspirin [Adult Low Dose Aspirin] 81 mg tablet,delayed release (DR/EC) 81 mg PO DAILY RF: 0 mycophenolate mofetil [CellCept] 500 mg tablet 500 mg PO BID RF: 0 zafirlukast [Accolate] 20 mg tablet 20 mg PO Q12H RF: 0 tacrolimus 1 mg capsule,extended release 24hr 1 mg PO BID RF: 0 oxybutynin chloride 10 MG tablet extended release 24hr 10 mg PO DAILY RF: 0 prednisone 5 MG tablet 5 mg PO DAILY RF: 0 sulfamethoxazole-trimethoprim 400-80 mg tablet 2 tab PO MOWEFR RF: 0 losartan 50 mg tablet 50 mg PO BID RF: 0 doxazosin 8 mg tablet 4 mg PO QHS RF: 0 oxycodone 5 mg Tablet 5 mg PO TID PRN (Reason: Pain) RF: 0 carvedilol [Coreg] 25 mg tablet 25 mg PO BID Qty: 180 RF: 3 carvedilol [Coreg] 12.5 mg tablet 12.5 mg PO BID Qty: 180 RF: 3 nifedipine [Procardia XL] 90 mg tablet extended release 24hr 90 mg PO DAILY Qty: 90 RF: 3 clopidogrel 75 mg tablet 75 mg PO DAILY Qty: 90 RF: 3 atorvastatin 40 mg tablet 40 mg PO QHS Qty: 90 RF: 3 Referrals / Follow Up: Shanelle Luz DO [Primary Care Provider] - Within 1 Week [place] MD [NON-STAFF] - Within 1 Month Disposition Disposition (needs filled in before D/C Order can be placed): Home, Self Care Charges/Coding Visit Charges Inpatient E&M: 70198 Disch Hosp
--- NOTE | 2021-06-15 14:38 | PHA.DC.MR ---
Pharmacy Service has performed discharge medication reconciliation for this patient. The patient's discharge medication list was reviewed for discrepancies and discrepancies were resolved. Home Medications allopurinol 300 mg tablet 300 mg PO QHS 09/18/19 pantoprazole 40 mg tablet,delayed release 40 mg PO DAILY 12/20/19 oxybutynin chloride 10 mg PO DAILY 03/29/20 prednisone 5 mg PO DAILY 03/29/20 aspirin 81 mg tablet,delayed release 81 mg PO DAILY 04/15/20 mycophenolate mofetil 500 mg tablet 500 mg PO BID 04/15/20 tacrolimus 1 mg capsule,extended release 24 hr 1 mg PO BID cap 04/15/20 zafirlukast 20 mg tablet 20 mg PO Q12H 04/15/20 sulfamethoxazole 400 mg-trimethoprim 80 mg tablet 2 tab PO MOWEFR tab 07/17/20 carvedilol 12.5 mg tablet 12.5 mg PO BID #180 tab 09/01/20 carvedilol 25 mg tablet 25 mg PO BID #180 tab 09/01/20 nifedipine 90 mg tablet,extended release 24 hr 90 mg PO DAILY #90 tab 12/02/20 clopidogrel 75 mg tablet 75 mg PO DAILY #90 tab 01/13/21 atorvastatin 40 mg tablet 40 mg PO QHS #90 tab 03/01/21 doxazosin 4 mg PO QHS 06/13/21 losartan 50 mg PO BID 06/13/21 oxycodone 5 mg PO TID PRN 06/14/21
--- NOTE | 2021-06-15 15:37 | CASEMGMT ---
This RN CM to room and pt declines need for any further therapy at discharge. Pt aware to call PCP once home if he decides he needs further therapy. Pt has a WW at home and plans to use for now. Pt voices no further questions/concerns/needs. SStaten JESSICA CM
--- NOTE | 2021-06-16 15:33 | CASEMGMT ---
JESSICA BREWER Discharge F/U Phone Call LACE: 10 Strata: 3 Discharge date: 06/15/21 Call date: 06/16/21 Call time: [id number] Admission dx: CVA Pt states has been doing 'really well' since discharge. Pt states no questions regarding d/c instructions/medications. Pt states has appt's set up for f/u and states plans to keep. Pt states no suggestions for [facility] and states 'everyone was courteous.' Pt voices no further questions/concerns/needs. SStaten JESSICA BREWER
== END 2021-06-15 16:27 | disposition home or self-care (01) | DRG 61 ==
LOC: ED 21:29 → ICU 21:43 → PCU 06-15 09:42
PROVIDERS: Admitting Provider Hospitalist; Emergency Provider Emergency Medicine; PCP Internal Medicine; Visit Provider Family Medicine
DX: I63.9 Cerebral infarction, unspecified (principal); N18.6 End stage renal disease; J98.11 Atelectasis; Z68.42 Body mass index [BMI] 45.0-49.9, adult; Z94.0 Kidney transplant status; Z94.4 Liver transplant status; I12.0 Hypertensive chronic kidney disease with stage 5 chronic kidney disease or end stage renal disease; E66.01 Morbid (severe) obesity due to excess calories; R47.01 Aphasia; E78.5 Hyperlipidemia, unspecified; N40.0 Benign prostatic hyperplasia without lower urinary tract symptoms; Z23 Encounter for immunization; I25.2 Old myocardial infarction; G47.33 Obstructive sleep apnea (adult) (pediatric); D64.9 Anemia, unspecified; G89.4 Chronic pain syndrome; J45.909 Unspecified asthma, uncomplicated; K21.9 Gastro-esophageal reflux disease without esophagitis; Z83.3 Family history of diabetes mellitus; Z86.73 Personal history of transient ischemic attack (TIA), and cerebral infarction without residual deficits; Z88.5 Allergy status to narcotic agent; Z88.8 Allergy status to other drugs, medicaments and biological substances; Z99.2 Dependence on renal dialysis; R29.810 Facial weakness
CPT/HCPCS: 70450; 70496; 70498; 70551; 71045; 80048; 80061; 83036; 84484; 85025; 85610; 85730; 92523; 92610; 93005; 93306; 97162; 97166; 97802; 99285; G0008; J2997; Q9957; Q9967; 90686; A4216; C8929; J2405; J3490

== ENCOUNTER → 2021-08-30 15:00 | Outpatient (CLI) | payer MEDICARE, OTHER, SELFPAY ==
[2020-07-29 07:35] VITALS: BMI 46.7
== END ==
PROVIDERS: PCP Internal Medicine; Visit Provider Nurse Practitioner
DX: R09.89 Other specified symptoms and signs involving the circulatory and respiratory systems (principal)
CPT/HCPCS: 87633

== ENCOUNTER 2021-10-01 10:57 | Inpatient (IN) | payer MEDICARE, OTHER, SELFPAY ==
[2020-07-29 07:35] VITALS: BMI 46.7
[2021-10-01] VITALS (12 sets, daily range): BP systolic 161–204; BP diastolic 90–109; PULSE 61–73; RESP 16–23; TEMP 36.4–37.8; O2SAT 94–98; BMI 47.9; BMI 45.9
--- NOTE | 2021-10-01 11:12 | EKG12_ITS ---
Test Reason : FEVERS Blood Pressure : / mmHG Vent. Rate : 064 BPM Atrial Rate : 064 BPM P-R Int : 188 ms QRS Dur : 104 ms QT Int : 416 ms P-R-T Axes : 108 -50 062 degrees QTc Int : 429 ms Normal sinus rhythm Left anterior fascicular block Abnormal ECG Confirmed by KATHERINE RUSSELL, SHAUN ([id number]), acquisition editor RACHELE FRANZ ([id number]) on 10/04/2021 10:47:08 AM Referred By: DANYN Confirmed By:SHAUN MURPHY MD
--- NOTE | 2021-10-01 11:12 | CT_ITS ---
STUDY: CT BRAIN WITHOUT CONTRAST REASON FOR EXAM: Male, 70 years old. Confusion RADIATION DOSAGE (If Supplied By Facility): CTDIvol = ( 47.06 ) mGy, DLP = ( 1921.82 ) mGycm TECHNIQUE: Transaxial CT imaging of the brain was performed without administration of intravenous contrast material. Individualized dose optimization techniques were used for this CT. COMPARISON: Comparison is made with prior study dated 06/14/2021. FINDINGS: Normal soft tissue structures. Normal calvarium. There is mild cerebral atrophy with widening of the extra-axial spaces and ventricular dilatation. There are areas of decreased attenuation within the white matter tracts of the supratentorial brain, consistent with microvascular disease changes. Normal basal ganglia and thalami. Normal brainstem. There is mild cerebellar atrophy. There is no intracranial hemorrhage. There are no findings of an acute ischemic infarction. Atherosclerotic calcification of the cavernous portions of the internal carotid arteries as well as the vertebral arteries bilaterally. Minimal mucosal thickening of the posterior aspect of the left maxillary sinus. CT/Brain/Head without Contrast IMPRESSION: Chronic involutional changes of the brain. Electronically Signed: Cliff Priest MD at 13:52 EST ,
--- NOTE | 2021-10-01 11:30 | EDS_ITS ---
HPI History of Present Illness Chief Complaint: Fever Narrative Narrative: History and physical is mildly limited to patient condition. According to his , patient has been confused and has had lethargy and problems concentrating since yesterday. She states that he laid in bed most of the day because he was lethargic. The day before everything was fine. Today when he woke up at 9:00 in the morning he was more confused. He is having problems finding his words. He denies any paresthesias or headache. His states that he is a liver and kidney transplant and this reminds her of when he had Zhang prior to his transplant, and his ammonia was high. She denies that he had any fever, although he has one here in the emergency department. No other symptoms. She states that the confusion is new. He has a history of CVA but does not remember what blood thinner he takes. She presents him because of the increased confusion and lethargy. [facility] Medical History Acute coronary syndrome with high troponin Anasarca Anemia Asthma Chronic nonalcoholic liver disease Chronic pain syndrome Cirrhosis of liver CVA (cerebral vascular accident) Elevated troponin End stage renal failure on dialysis Essential (primary) hypertension GERD (gastroesophageal reflux disease) History of CVA (cerebrovascular accident) (11/2017) History of non-ST elevation myocardial infarction (NSTEMI) (03/30/20) Hydronephrosis Hypertensive emergency Left renal artery stenosis Morbid obesity Obesity Obstructive sleep apnea Osteoarthritis Renal calculi Segmental and somatic dysfunction of lumbar region Superficial thrombophlebitis TIA (transient ischemic attack) Home Medications allopurinol 300 mg tablet 300 mg PO QHS 09/18/19 [History Last Taken 03/28/20 22:00] pantoprazole 40 mg tablet,delayed release 40 mg PO DAILY 12/20/19 [History Last Taken 03/29/20 08:00] oxybutynin chloride 10 mg PO DAILY 03/29/20 [History Last Taken 03/29/20 08:00] prednisone 5 mg PO DAILY 03/29/20 [History Last Taken Unknown] aspirin 81 mg tablet,delayed release 81 mg PO DAILY 04/15/20 [History Last Taken Unknown] mycophenolate mofetil 500 mg tablet 500 mg PO BID 04/15/20 [History Last Taken Unknown] tacrolimus 1 mg capsule,extended release 24 hr 1 mg PO BID cap 04/15/20 [History Last Taken Unknown] zafirlukast 20 mg tablet 20 mg PO Q12H 04/15/20 [History Last Taken Unknown] sulfamethoxazole 400 mg-trimethoprim 80 mg tablet 2 tab PO MOWEFR tab 07/17/20 [History Last Taken Unknown] clopidogrel 75 mg tablet 75 mg PO DAILY #90 tab 01/13/21 [Rx Last Taken Unknown] atorvastatin 40 mg tablet 40 mg PO QHS #90 tab 03/01/21 [Rx Last Taken Unknown] losartan 50 mg PO BID 06/13/21 [History Last Taken Unknown] oxycodone 5 mg PO TID PRN 06/14/21 [History Last Taken Unknown] doxazosin 8 mg tablet 8 mg PO QHS #90 tab 06/30/21 [Rx Last Taken Unknown] carvedilol 12.5 mg tablet 12.5 mg PO BID #180 tab 07/28/21 [Rx Last Taken Un known] carvedilol 25 mg tablet 25 mg PO BID #180 tab 07/28/21 [Rx Last Taken Unknown] nifedipine 90 mg tablet,extended release 24 hr 90 mg PO DAILY #90 tab 09/13/21 [Rx Last Taken Unknown] Allergy/AdvReac Type Severity Reaction Status Date / Time morphine Allergy Intermediate Unknown Verified 06/11/21 12:29 metformin Allergy Other Verified 06/11/21 12:29 pregabalin [From Lyrica] Allergy Other Verified 06/11/21 12:29 Family History Other PGM diabetes Surgical History History of knee replacement History of left heart catheterization (04/03/20) History of stent insertion of renal artery (2014) Kidney transplant recipient (07/13/12) Liver transplant recipient (07/13/12) Social History household members: spouse Smoking Status: Never smoker second hand exposure: No alcohol intake: never substance use type: does not use caffeine: Yes frequency: 3-4 times per week ROS ROS ED Review of Systems ROS Unobtainable: due to encephalopathy and due to mental status EXAM Physical Exam Narrative Exam Narrative: Elevated temperature of 100 vital signs noted. HEENT: Normocephalic. Atraumatic. PERRL, EOMI. Neck soft and supple. No point tenderness or step off. Cardiovascular: Regular rate and rhythm. No murmurs, rubs, or gallops appreciated. Respiratory: No tachypnea. Lungs clear to auscultation bilaterally. Gastrointestinal: Abdomen soft, obese, nontender, with normoactive bowel sounds. No rebound or guarding. Neurological: Awake. Alert. Nonfocal, nonlateralizing. Confused. Unable to state year or month. Skin: No rash. Normal color. No pallor. Musculoskeletal: No pedal edema. Full range of motion extremities. Const Vital Signs: 10/01/21 10:58 10/01/21 11:01 10/01/21 11:12 Temperature 100.0 F H 100.0 F H Temperature Source Oral Oral Pulse Rate 67 61 63 Respiratory Rate 18 19 H 22 H Respiratory Effort Respiratory Pattern Blood Pressure 191/96 H 191/96 H 178/97 H Blood Pressure Mean 127 127 124 Pulse Ox 98 95 94 Oxygen Delivery Method Room Air Room Air Room Air 10/01/21 11:59 10/01/21 12:35 10/01/21 12:36 Temperature 98.1 F Temperature Source Oral Pulse Rate 65 65 Respiratory Rate 20 H 17 Respiratory Effort Normal Respiratory Pattern Normal Blood Pressure 184/104 H 184/104 H Blood Pressure Mean 130 130 Pulse Ox 94 94 Oxygen Delivery Method Room Air Room Air 10/01/21 13:12 Temperature 97.7 F L Temperature Source Oral Pulse Rate 69 Respiratory Rate 17 Respiratory Effort Respiratory Pattern Blood Pressure 175/90 H Blood Pressure Mean 118 Pulse Ox 96 Oxygen Delivery Method Room Air MDM MDM MDM Narrative Medical decision making narrative: Sepsis work-up was pursued here. I will obtain a CT of his brain along with chest x-ray and urinalysis and basic laboratory work including lactic acid. He will be given Tylenol once CT of the brain returns. I will also check an ammonia level. Patient's laboratory work shows normal white count of 6.8, hemoglobin stable at 13.4, normal platelet count of 156. Coagulation studies are negative. His CMP shows chloride slightly elevated at 113, BUN of 23 with a creatinine of 1.37, however he has a chronic kidney injury and appears to be at his baseline. Glucose appropriately elevated at 133 with a normal anion gap of 5. His LFTs are grossly unremarkable with an AST of 12, and ALT low at 28 with alk phos of 85. I do not feel that he is having liver transplant rejection. He has normal coagulation studies also. His ammonia level is normal. Lactic acid is also normal at 0.7. His urinalysis does show 25-50 WBCs with 10-25 RBCs. Cultures are pending. He was started on Rocephin. CT the brain shows no acute process, but chronic involutional changes, and his chest x-ray shows no evidence of pneumonia. At this point in time, given his elevated temperature, although it came down on its own, he was administered Tylenol orally. His blood pressure is still elevated so he is administered hydralazine 10 mg intravenously. Initially I discussed patient with Dr. Hammonds. Given his history of transplant, both liver and renal albeit remote, he wanted the patient transferred initially to [facility] where he had received his transplant. I was able to discuss the patient with the medicine service, Dr. Mixon. She stated that there are no available beds, and additionally the patient would not be on a transplant service at the [facility]. In discussion with his , she does not want him to go to [facility] either, and is comfortable with the patient being admitted here. I rediscussed the patient with Dr. Hammonds for admission. He is in stable condition. Lab Data Attestation: I reviewed the patient's lab results. Labs: Laboratory Results - last 24 hr 10/01/21 10/01/21 10/01/21 11:05 11:05 11:05 WBC 6.8 RBC 4.47 L Hgb 13.4 Hct 39.8 L MCV 89.0 MCH 30.0 MCHC 33.7 RDW Std Deviation 46.1 H RDW Coeff of Leonie 14.1 Plt Count 156 MPV 10.7 Immature Gran % (Auto) 0.300 Neut % (Auto) 57.2 Lymph % (Auto) 31.8 [place] % (Auto) 8.6 Eos % (Auto) 2.0 Baso % (Auto) 0.1 Absolute Neuts (auto) 3.9 Absolute Lymphs (auto) 2.17 Nucleated RBC % 0 PT 12.6 INR 1.0 APTT 32.6 Sodium 143 Potassium 3.7 Chloride 113 H Carbon Dioxide 25.0 Anion Gap 5 BUN 23 H Creatinine 1.37 H Estim Creat Clear Calc 50.89 Est GFR (MDRD) Af Amer 66 Est GFR (MDRD) Non-Af 55 L BUN/Creatinine Ratio 16.8 Glucose 133 H Lactic Acid Calcium 8.8 Total Bilirubin 0.60 AST 12 L ALT 28 Alkaline Phosphatase 85 Ammonia Total Creatine Kinase 91 Total Protein 6.2 L Albumin 3.3 Globulin 2.9 Albumin/Globulin Ratio 1.1 Urine Color Urine Clarity Urine pH Ur Specific [place] Urine Protein Urine Glucose (UA) Urine Ketones Urine Occult Blood Urine Nitrite Urine Bilirubin Urine Urobilinogen Ur Leukocyte Esterase Urine RBC Urine WBC Ur Squamous Epith Cells Urine Bacteria Urine Mucus 10/01/21 10/01/21 10/01/21 11:05 11:27 12:20 WBC RBC Hgb Hct MCV MCH MCHC RDW Std Deviation RDW Coeff of Leonie Plt Count MPV Immature Gran % (Auto) Neut % (Auto) Lymph % (Auto) [place] % (Auto) Eos % (Auto) Baso % (Auto) Absolute Neuts (auto) Absolute Lymphs (auto) Nucleated RBC % PT INR APTT Sodium Potassium Chloride Carbon Dioxide Anion Gap BUN Creatinine Estim Creat Clear Calc Est GFR (MDRD) Af Amer Est GFR (MDRD) Non-Af BUN/Creatinine Ratio Glucose Lactic Acid 0.7 Calcium Total Bilirubin AST ALT Alkaline Phosphatase Ammonia 15.0 Total Creatine Kinase Total Protein Albumin Globulin Albumin/Globulin Ratio Urine Color Yellow Urine Clarity Sl. Cloudy Urine pH 5.0 Ur Specific [place] 1.020 Urine Protein 100 H Urine Glucose (UA) Normal Urine Ketones Negative Urine Occult Blood 150 H Urine Nitrite Negative Urine Bilirubin Negative Urine Urobilinogen Normal Ur Leukocyte Esterase 500 H Urine RBC 10-25 SEEN Urine WBC 25-50 SEEN Ur Squamous Epith Cells 0-5 SEEN Urine Bacteria 1+ Urine Mucus 0 SEEN Radiography Diagnostic Testing: Clinical Impression(s) from Imaging Studies Brain CT 10/01/21 11:12 IMPRESSION: Chronic involutional changes of the brain. Electronically Signed: Cliff Priest MD at 13:52 EST , Chest X-Ray 10/01/21 12:02 IMPRESSION: Stable examination. No acute abnormality is seen. Electronically Signed: Cliff Priest MD at 12:24 EST , Discharge Plan Dx/Rx/DC Orders Clinical Impression: Encephalopathy, UTI (urinary tract infection), Altered mental status Disposition Disposition: Acute Care Hospital [facility]
[2021-10-01 11:37] LABS: Absolute Lymphocyte Count 2.17 X10^3/uL (0.83-4.51); Absolute Neutrophil Count 3.9 X10^3/uL (2.0-7.7); Basophil# 0.01 X10^3/uL; Basophil% 0.1 % (0-1); Eosinophil# 0.14 X10^3/uL; Hematocrit 39.8 % (40-54); Hemoglobin 13.4 g/dL (13.0-16.5); Lymphocyte # 2.17 X10^3/ul (0.83-4.51); Lymphocyte % 31.8 % (19-41); Mean Corp Hgb Conc 33.7 g/dL (32-36); Mean Platelet Vol. 10.7 fl (6.2-12.0); Monocyte# 0.59 X10^3/uL; Monocyte% 8.6 % (0-10); NRBC Flagged by Analyzer 0 % (0-5); Neutrophil % 57.2 % (47-70); Platelet Count 156 K/mm3 (150-450); RBC Distribution Width CV 14.1 % (11.6-14.6); RBC Distribution Width SD 46.1 fl (35.1-43.9); Red Blood Count 4.47 M/mm3 (4.6-6.2); White Blood Count 6.8 K/mm3 (4.4-11.0)
[2021-10-01 11:43] LABS: Prothrombin Time (Protime)PT. 12.6 SECONDS (11.7-14.9)
[2021-10-01 11:44] LABS: Partial Thromboplast Time 32.6 Seconds (24.1-36.2)
[2021-10-01 11:51] LABS: ALB/GLOB Ratio 1.1 RATIO (0.9-2.4); AST(SGOT) 12 U/L (15-37); Alanine Aminotransfer ALT/SGPT 28 U/L (16-61); Albumin, Serum 3.3 g/dL (3.2-5.0); Alkaline Phosphatase 85 U/L (45-117); Anion Gap 5 (5-15); BUN 23 mg/dL (7-18); BUN/Creat Ratio 16.8 RATIO (10-20); CPK Total, Creatine Kinase 91 U/L (39-308); Calcium,Total 8.8 mg/dL (8.5-10.1); Chloride 113 mmol/L (98-107); Creatinine, Serum 1.37 mg/dL (0.70-1.30); EST Glomerular Filtration Rate 55 mL/min (>60); Est Glom Filt Rate - Afr Amer 66 mL/min (>60); Estimated Creatinine Clearance 50.89 ml/min; Globulin 2.9 g/dL (2.2-4.2); Glucose 133 mg/dL (74-106); Lactic Acid 0.7 mmol/L (0.4-1.9); Potassium 3.7 mmol/L (3.5-5.1); Protein, Total 6.2 g/dL (6.4-8.2); Sodium Level 143 mmol/L (136-145)
--- NOTE | 2021-10-01 12:02 | RAD_ITS ---
STUDY: X-RAY CHEST REASON FOR EXAM: Male, 70 years old. Fever TECHNIQUE: Single AP portable view of the chest. COMPARISON: Comparison is made with prior study dated 09/07/2021. FINDINGS: EKG electrodes are seen. Stable minimal linear scarring in the right upper lobe. There is no demonstrated pleural abnormality. Normal size heart. Normal mediastinum and deandre. Normal visualized pulmonary arteries. There is atherosclerotic calcification of the aortic arch with tortuosity. Normal visualized thoracic spine. There is degenerative osteoarthritis of the bilateral shoulders. There is no demonstrated abnormality of the visualized soft tissue structures of the upper abdomen. RAD/Chest 1 View (Portable) IMPRESSION: Stable examination. No acute abnormality is seen. Electronically Signed: Cliff Priest MD at 12:24 EST ,
[2021-10-01 12:32] LABS: Mucous, Urine 0 SEEN /hpf (<or=2+)
[2021-10-01 12:33] LABS: Color, Urine Yellow (Yellow); Glucose, Dipstick Normal (Normal); Ketone-Dipstick Negative (Negative); Leukocyte Esterase-Dipstick 500 /ul (Negative); Nitrite-Dipstick Negative (Negative); Occult Blood-Urine 150 /ul (Negative); Protein-Dipstick 100 mg/dl (Negative); Urine Bilirubin Dipstick Negative (Negative); Urine Clarity Sl. Cloudy (Clear); Urine Urobilinogen Normal (Normal)
[2021-10-01 12:39] LABS: Red Blood Cells-Urine 10-25 SEEN /hpf (0-5)
[2021-10-01 12:40] LABS: Bacteria 1+ /hpf (None Seen); Squamous Epithelial Cells - UA 0-5 SEEN /hpf (0-5); White Blood Cells 25-50 SEEN /hpf (0-5)
[2021-10-01] MEDS: hydrALAZINE 20 MG/ML Vial 10 MG IV ×2 (12:49→23:05)
[2021-10-01] MEDS: Acetaminophen 325 MG Tablet 650 MG PO (12:49)
--- NOTE | 2021-10-01 13:06 | NURSING ---
DR BATEMAN FOR DR LANGSTON
--- NOTE | 2021-10-01 13:17 | NURSING ---
MADE FIRST PHONE CALL TO [facility] MAIN TRANSFER LINE. TALKED TO THOMAS. FAXED FACESHEET
--- NOTE | 2021-10-01 13:43 | NURSING ---
DR MARTA LANGSTON
--- NOTE | 2021-10-01 14:03 | NURSING ---
DR BATEMAN FOR DR LANGSTON
--- NOTE | 2021-10-01 14:04 | HP.PCM.HOS_ITS ---
HPI - General General Date of Admission: 10/01/21 HPI Narrative TOM GALLAGHER, is a 70 M with multiple comorbidities status post liver and kidney transplant Was brought to the ER for confusion that started today. SHEENT was normal around 1 AM. He had felt feverish. Patient also complained of burning micturition for couple days cannot tell me exact duration. Patient is morbidly obese and does not move much. Patient is accompanied with the and history mainly taken from patient's . Patient is disoriented. Low-grade temperature 100 Fahrenheit. UA shows mild pyuria but nitrite negative. BUN and creatinine on baseline, creatinine 1.37. Chest x-ray does not show acute abnormality. CT head no acute change. Twelve- lead EKG normal sinus rhythm 64 bpm, LAFB, LAD similar to the previous EKG of June 2021. ER physician talked to [facility] for transfer and information regarding immunosuppressant medications but they do not have bed. They are advised to call back after 24 hours. [facility] Medical History Acute coronary syndrome with high troponin Anasarca Anemia Asthma Chronic nonalcoholic liver disease Chronic pain syndrome Cirrhosis of liver CVA (cerebral vascular accident) Elevated troponin End stage renal failure on dialysis Essential (primary) hypertension GERD (gastroesophageal reflux disease) History of CVA (cerebrovascular accident) (11/2017) History of non-ST elevation myocardial infarction (NSTEMI) (03/30/20) Hydronephrosis Hypertensive emergency Left renal artery stenosis Morbid obesity Obesity Obstructive sleep apnea Osteoarthritis Renal calculi Segmental and somatic dysfunction of lumbar region Superficial thrombophlebitis TIA (transient ischemic attack) Home Medications allopurinol 300 mg tablet 300 mg PO QHS 09/18/19 [History Last Taken 03/28/20 22:00] pantoprazole 40 mg tablet,delayed release 40 mg PO DAILY 12/20/19 [History Last Taken 03/29/20 08:00] oxybutynin chloride 10 mg PO DAILY 03/29/20 [History Last Taken 03/29/20 08:00] prednisone 5 mg PO DAILY 03/29/20 [History Last Taken Unknown] aspirin 81 mg tablet,delayed release 81 mg PO DAILY 04/15/20 [History Last Taken Unknown] mycophenolate mofetil 500 mg tablet 500 mg PO BID 04/15/20 [History Last Taken Unknown] tacrolimus 1 mg capsule,extended release 24 hr 1 mg PO BID cap 04/15/20 [History Last Taken Unknown] zafirlukast 20 mg tablet 20 mg PO Q12H 04/15/20 [History Last Taken Unknown] sulfamethoxazole 400 mg-trimethoprim 80 mg tablet 2 tab PO MOWEFR tab 07/17/20 [History Last Taken Unknown] clopidogrel 75 mg tablet 75 mg PO DAILY #90 tab 01/13/21 [Rx Last Taken Unknown] atorvastatin 40 mg tablet 40 mg PO QHS #90 tab 03/01/21 [Rx Last Taken Unknown] losartan 50 mg PO BID 06/13/21 [History Last Taken Unknown] oxycodone 5 mg PO TID PRN 06/14/21 [History Last Taken Unknown] doxazosin 8 mg tablet 8 mg PO QHS #90 tab 06/30/21 [Rx Last Taken Unknown] carvedilol 12.5 mg tablet 12.5 mg PO BID #180 tab 07/28/21 [Rx Last Taken Unknown] carvedilol 25 mg tablet 25 mg PO BID #180 tab 07/28/21 [Rx Last Taken Unknown] nifedipine 90 mg tablet,extended release 24 hr 90 mg PO DAILY #90 tab 09/13/21 [Rx Last Taken Unknown] Allergy/AdvReac Type Severity Reaction Status Date / Time morphine Allergy Intermediate Unknown Verified 06/11/21 12:29 metformin Allergy Other Verified 06/11/21 12:29 pregabalin [From Lyrica] Allergy Other Verified 06/11/21 12:29 Family History Other PGM diabetes Surgical History History of knee replacement History of left heart catheterization (04/03/20) History of stent insertion of renal artery (2014) Kidney transplant recipient (07/13/12) Liver transplant recipient (07/13/12) Social History household members: spouse Smoking Status: Never smoker second hand exposure: No alcohol intake: never substance use type: does not use caffeine: Yes frequency: 3-4 times per week ROS ROS Narrative In general patient is obese. Generalized pain which is chronic. Does not walk or ambulate much. Denies chest pain or shortness of breath. No abdominal pain. Mild nausea but no vomiting. No diarrhea. Rest 14 system ROS unobtainable because of encephalopathy. Review of Systems ROS Unobtainable: due to encephalopathy and due to mental status Vital Signs Vital Signs Vital Signs: 10/01/21 10:58 10/01/21 11:01 10/01/21 11:12 Temperature 100.0 F H 100.0 F H Temperature Source Oral Oral Pulse Rate 67 61 63 Respiratory Rate 18 19 H 22 H Respiratory Effort Respiratory Pattern Blood Pressure 191/96 H 191/96 H 178/97 H Blood Pressure Mean 127 127 124 Pulse Ox 98 95 94 Oxygen Delivery Method Room Air Room Air Room Air 10/01/21 11:59 10/01/21 12:35 10/01/21 12:36 Temperature 98.1 F Temperature Source Oral Pulse Rate 65 65 Respiratory Rate 20 H 17 Respiratory Effort Normal Respiratory Pattern Normal Blood Pressure 184/104 H 184/104 H Blood Pressure Mean 130 130 Pulse Ox 94 94 Oxygen Delivery Method Room Air Room Air 10/01/21 13:12 Temperature 97.7 F L Temperature Source Oral Pulse Rate 69 Respiratory Rate 17 Respiratory Effort Respiratory Pattern Blood Pressure 175/90 H Blood Pressure Mean 118 Pulse Ox 96 Oxygen Delivery Method Room Air Weight Weight: 324 lb 8.327 oz Body Mass Index (BMI) 47.9 Physical Exam Narrative General: Confused, disoriented x3, morbid obese BMI 47.9 kg/m? HEENT: Atraumatic, PERRLA, EOMI, Normocephalic Oral: Oral mucosa dry. No Gingival or Mucosal Lesions/ Ulcerations Neck: Supple, No JVD, Negative Carotid Bruits Lungs: Air entry diminished in bilateral lung bases. No crepitation/rhonchi Cardiovascular: Sinus rhythm, Normal S1, Normal S2, No murmurs Abdomen: Bowel Sounds Present, Soft, Non Tender, Non-Distended : No suprapubic tenderness. No scrotal or penile urethra tenderness no renal angle tenderness. Extremities: Bilateral leg pitting, 2+ edema, Capillary Refill Less than 3 Seconds Skin: Bilateral groin erythematous rash Musculoskeletal: No Tenderness to Palpation of Joints or Extremities Neurological: Complete neuro exam unobtainable. In general cranial nerves intact. DTR 2+/4, nonfocal exam Psych/Mental Status: Confused, disoriented Results Lab / Micro Data Result Diagrams: 10/01/21 11:05 10/01/21 11:05 Labs: Laboratory Results - last 24 hr 10/01/21 11:05: WBC 6.8, RBC 4.47 L, Hgb 13.4, Hct 39.8 L, MCV 89.0, MCH 30.0, MCHC 33.7, RDW Std Deviation 46.1 H, RDW Coeff of Leonie 14.1, Plt Count 156, MPV 10.7, Immature Gran % (Auto) 0.300, Neut % (Auto) 57.2, Lymph % (Auto) 31.8, [place] % (Auto) 8.6, Eos % (Auto) 2.0, Baso % (Auto) 0.1, Absolute Neuts (auto) 3.9, Absolute Lymphs (auto) 2.17, Nucleated RBC % 0 10/01/21 11:05: PT 12.6, INR 1.0, APTT 32.6 10/01/21 11:05: Sodium 143, Potassium 3.7, Chloride 113 H, Carbon Dioxide 25.0, Anion Gap 5, BUN 23 H, Creatinine 1.37 H, Estim Creat Clear Calc 50.89, Est GFR (MDRD) Af Amer 66, Est GFR (MDRD) Non-Af 55 L, BUN/Creatinine Ratio 16.8, Glucose 133 H, Calcium 8.8, Total Bilirubin 0.60, AST 12 L, ALT 28, Alkaline Phosphatase 85, Total Creatine Kinase 91, Total Protein 6.2 L, Albumin 3.3, G lobulin 2.9, Albumin/Globulin Ratio 1.1 10/01/21 11:05: Lactic Acid 0.7 10/01/21 11:27: Ammonia 15.0 10/01/21 12:20: Urine Color Yellow, Urine Clarity Sl. Cloudy, Urine pH 5.0, Ur Specific [place] 1.020, Urine Protein 100 H, Urine Glucose (UA) Normal, Urine Ketones Negative, Urine Occult Blood 150 H, Urine Nitrite Negative, Urine Bilirubin Negative, Urine Urobilinogen Normal, Ur Leukocyte Esterase 500 H, Urine RBC 10-25 SEEN, Urine WBC 25-50 SEEN, Ur Squamous Epith Cells 0-5 SEEN, Urine Bacteria 1+, Urine Mucus 0 SEEN Radiology Impression Brain CT 10/01/21 11:12 IMPRESSION: Chronic involutional changes of the brain. Electronically Signed: Cliff Priest MD at 13:52 EST , Chest X-Ray 10/01/21 12:02 IMPRESSION: Stable examination. No acute abnormality is seen. Electronically Signed: Cliff Priest MD at 12:24 EST , Assessment & Plan Assessment/Plan (1) Encephalopathy: (2) UTI (urinary tract infection): QUALIFIERS: Urinary tract infection type: acute cystitis Hematuria presence: without hematuria Qualified Code(s): N30.00 - Acute cystitis without hematuria PLAN: 1. Acute encephalopathy probably due to UTI but other possibilities includes medications interactions/polypharmacy or metabolic: Patient is being admitted in [facility] with telemetry. Try to treat the underlying disorder. Monitor labs. Patient is on multiple immunosuppressant medications especially tacrolimus which can cause encephalopathy but unfortunately tacrolimus serum level is a send out and he generally takes about 5 to 7 days for result to come back. ER physician talked to [facility] and they do not have bed but they accepted the patient and advised to call after 24 hours. 2. Complicated UTI/cystitis: Patient has dysuria. Started on ceftriaxone. Follow urine culture and blood culture. Monitor bladder scan for urinary retention. Lactic acid normal. No leukocytosis. No tachycardia. 3. Hypertension: Blood pressure is high probably because of wrong cuff size as I saw cuff in the left forearm. 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 NEWELL elated cirrhosis and end-stage renal disease status post liver and kidney transplant: Serum magnesium and phosphorus ordered. Normal potassium. Creatinine on baseline. [place] direct marketing manager is consulted to manage immunosuppression medications 6. Obstructive sleep apnea, chronic Degenerative joint arthritis and lower extremity edema: CPAP at night. PT and OT ordered. 7. History of non-STEMI/Chronic HFpEF: Patient had echo in June 2020 for work-up of his stroke. EF 60%. Mild concentric LVH. Stage I diastolic dysfunction. T prophylaxis, high risk Due to morbid obesity.Lovenox 40 mils subcu twice daily. Bilateral SCD Microbiology Past 72 Hours 10/01/21 13:50 Nasal Secretion SARS-CoV-2 Antigen (Rapid) - Final Laboratory Results 10/01/21 11:05: WBC 6.8, RBC 4.47 L, Hgb 13.4, Hct 39.8 L, MCV 89.0, MCH 30.0, MCHC 33.7, RDW Std Deviation 46.1 H, RDW Coeff of Leonie 14.1, Plt Count 156, MPV 10.7, Immature Gran % (Auto) 0.300, Neut % (Auto) 57.2, Lymph % (Auto) 31.8, [place] % (Auto) 8.6, Eos % (Auto) 2.0, Baso % (Auto) 0.1, Absolute Neuts (auto) 3.9, Absolute Lymphs (auto) 2.17, Nucleated RBC % 0 10/01/21 11:05: PT 12.6, INR 1.0, APTT 32.6 10/01/21 11:05: Sodium 143, Potassium 3.7, Chloride 113 H, Carbon Dioxide 25.0, Anion Gap 5, BUN 23 H, Creatinine 1.37 H, Estim Creat Clear Calc 50.89, Est GFR (MDRD) Af Amer 66, Est GFR (MDRD) Non-Af 55 L, BUN/Creatinine Ratio 16.8, Glucose 133 H, Calcium 8.8, Total Bilirubin 0.60, AST 12 L, ALT 28, Alkaline Phosphatase 85, Total Creatine Kinase 91, Total Protein 6.2 L, Albumin 3.3, Globulin 2.9, Albumin/Globulin Ratio 1.1 10/01/21 11:05: Lactic Acid 0.7 10/01/21 11:15: Phosphorus Pending, Magnesium Pending 10/01/21 11:27: Ammonia 15.0 10/01/21 12:20: Urine Color Yellow, Urine Clarity Sl. Cloudy, Urine pH 5.0, Ur Specific [place] 1.020, Urine Protein 100 H, Urine Glucose (UA) Normal, Urine Ketones Negative, Urine Occult Blood 150 H, Urine Nitrite Negative, Urine Bilirubin Negative, Urine Urobilinogen Normal, Ur Leukocyte Esterase 500 H, Urine RBC 10-25 SEEN, Urine WBC 25-50 SEEN, Ur Squamous Epith Cells 0-5 SEEN, Urine Bacteria 1+, Urine Mucus 0 SEEN Charges/Coding Visit Charges Inpatient E&M: 94124 Init Hosp L3 Procedures Hospitalists Procedures: 09379 Advncd Care Plan 30 Min
--- NOTE | 2021-10-01 14:12 | NURSING ---
DR BATEMAN IN ER
--- NOTE | 2021-10-01 14:17 | NURSING ---
[facility]
--- NOTE | 2021-10-01 14:30 | CASEMGMT ---
JESSICA CM to room to meet with patient for initial transition planning/care coordination assessment. RN CM introduced self and role at [facility]. Patient's Serina present at bedside. Patient is alert but confused and all history obtained from . Care providers, pharmacy, and demographics verified/updated at this time. PCP: Shanelle Luz Specialists: [facility]- cardiology, F liver and kidney transplant teams Preferred Pharmacy: [facility] Insurance: Medicare A/B & [employer] Prescription Benefit: yes Living Will/HPOA: Patient's reports patient has living will and HPOA. Patient's made aware these forms are not on file at [facility] and may be brought in to be scanned into record. LNOK: Living Arrangements: Patient lives with in one story house with three steps and a handrail to enter. Patient's reports patient typically ambulates independently without the use of an assistive device and independent with ADLs prior to two days ago. also states patient is not very active at baseline and is noticeably losing muscle strength, becoming more weak. Smoking/ETOH: Never smoker, denies ETOH use Transportation: Patient drives self and available for transportation needs. Denies transportation concerns. DME/HHC/SNF: Patient has a walk-in shower, bedside commode, raised toilet seat, grab bars, walker and BiPAP (no oxygen bled in) at home. History of dialysis prior to liver and kidney transplant surgery in July 2012. Previous HHC through [facility] and previous SNF stay at [facility] inpatient rehab unit. Patient's states she is unable to care for patient at home in current condition with inability to walk. Patient's discusses plan to return home with HHC if improved prior to discharge or possible SNF placement if appropriate. CM to follow for any discharge planning/needs. Patient's voices no concerns/needs at this time. Advised patient's to ask for CM if any questions/concerns/needs arise. Voices understanding. Plan: home with HHC vs SNF, pending further evaluation/treatment
--- NOTE | 2021-10-01 15:08 | PCS.PANDOC ---
PANDEMIC DOCUMENTATION INITIATED: Date: 04/19/2021 Time: 190
[2021-10-01 15:16] LABS: Magnesium 1.9 mg/dL (1.6-2.6)
[2021-10-01] MEDS: 0.45% Normal Saline 1,000 ML 75 ML IV (16:30)
--- NOTE | 2021-10-01 16:33 | CON.PCM.RE_ITS ---
Assessment & Plan Assessment/Plan (1) Chronic kidney disease, stage 3a: (2) Kidney transplant recipient: PLAN: Baseline creatinine is around 1.3, current creatinine values are close to baseline. He is on 3 drug regimen for immunosuppression including tacrolimus, CellCept, prednisone. Clinically does not look septic. Continue all 3 medications for now. Ceftriaxone for urinary tract infection. No graft site tenderness. Discussed with hospitalist. (3) Immunosuppression: HPI Consult Data Date of Consult: 10/01/21 HPI Narrative HPI Narrative: TOM GALLAGHER, is a 70 M who presents to the hospital with altered mental status. Nephrology consulted in view of transplant status. He has known history of liver and kidney transplant done at [facility]. Baseline creatinine is around 1.3. 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 He was recently admitted here in June. Apparently found to have altered mental status and brought in. Work-up showed urine analysis consistent with UTI. Currently on ceftriaxone. Chest x-ray is negative. Covid negative. Denies any urinary complaints. [facility] Medical History Acute coronary syndrome with high troponin Anasarca Anemia Asthma Chronic nonalcoholic liver disease Chronic pain syndrome Cirrhosis of liver CVA (cerebral vascular accident) Elevated troponin End stage renal failure on dialysis Essential (primary) hypertension GERD (gastroesophageal reflux disease) History of CVA (cerebrovascular accident) (11/2017) History of non-ST elevation myocardial infarction (NSTEMI) (03/30/20) Hydronephrosis Hypertensive emergency Left renal artery stenosis Morbid obesity Obesity Obstructive sleep apnea Osteoarthritis Renal calculi Segmental and somatic dysfunction of lumbar region Superficial thrombophlebitis TIA (transient ischemic attack) Home Medications allopurinol 300 mg tablet 300 mg PO QHS 09/18/19 [History Last Taken 09/30/21] pantoprazole 40 mg tablet,delayed release 40 mg PO DAILY 12/20/19 [History Last Taken 10/01/21] oxybutynin chloride 10 mg PO DAILY 03/29/20 [History Last Taken 10/01/21] prednisone 5 mg PO DAILY 03/29/20 [History Last Taken 10/01/21] aspirin 81 mg tablet,delayed release 81 mg PO DAILY 04/15/20 [History Last Taken 10/01/21] mycophenolate mofetil 500 mg tablet 500 mg PO BID 04/15/20 [History Last Taken 10/01/21] tacrolimus 1 mg capsule,extended release 24 hr 1 mg PO BID cap 04/15/20 [History Last Taken 10/01/21] zafirlukast 20 mg tablet 20 mg PO Q12H 04/15/20 [History Last Taken 10/01/21] sulfamethoxazole 400 mg-trimethoprim 80 mg tablet 2 tab PO MOWEFR tab 07/17/20 [History Last Taken 10/01/21] losartan 50 mg PO BID 06/13/21 [History Last Taken 10/01/21] doxazosin 8 mg tablet 8 mg PO QHS #90 tab 06/30/21 [Rx Last Taken 09/30/21] atorvastatin 40 mg PO QHS 10/01/21 [History Last Taken 09/30/21] carvedilol [Coreg] 12.5 mg PO BID 10/01/21 [History Last Taken 10/01/21] carvedilol [Coreg] 25 mg PO BID 10/01/21 [History Last Taken 10/01/21] clopidogrel 75 mg PO DAILY 10/01/21 [History Last Taken 10/01/21] nifedipine [Procardia XL] 90 mg PO DAILY 10/01/21 [History Last Taken 10/01/21] oxycodone 5 mg PO TID 10/01/21 [History Last Taken 10/01/21] Allergy/AdvReac Type Severity Reaction Status Date / Time morphine Allergy Intermediate Unknown Verified 06/11/21 12:29 metformin Allergy Other Verified 06/11/21 12:29 pregabalin [From Lyrica] Allergy Other Verified 06/11/21 12:29 Family History Other PGM diabetes Surgical History History of knee replacement History of left heart catheterization (04/03/20) History of stent insertion of renal artery (2014) Kidney transplant recipient (07/13/12) Liver transplant recipient (07/13/12) Social History household members: spouse Smoking Status: Never smoker second hand exposure: No alcohol intake: never substance use type: does not use caffeine: Yes frequency: 3-4 times per week ROS ROS Narrative Negative except history Physical Exam Narrative Alert awake no obvious distress no pallor no icterus no JVD s1s2 no murmurs lungs clear abdomen soft no organomegaly no edema no cyanosis Lab / Micro Data Result Diagrams: 10/01/21 11:05 10/01/21 11:05 Labs: Laboratory Results - last 24 hr 10/01/21 11:05: WBC 6.8, RBC 4.47 L, Hgb 13.4, Hct 39.8 L, MCV 89.0, MCH 30.0, MCHC 33.7, RDW Std Deviation 46.1 H, RDW Coeff of Leonie 14.1, Plt Count 156, MPV 10.7, Immature Gran % (Auto) 0.300, Neut % (Auto) 57.2, Lymph % (Auto) 31.8, [place] % (Auto) 8.6, Eos % (Auto) 2.0, Baso % (Auto) 0.1, Absolute Neuts (auto) 3.9, Absolute Lymphs (auto) 2.17, Nucleated RBC % 0 10/01/21 11:05: PT 12.6, INR 1.0, APTT 32.6 10/01/21 11:05: Sodium 143, Potassium 3.7, Chloride 113 H, Carbon Dioxide 25.0, Anion Gap 5, BUN 23 H, Creatinine 1.37 H, Estim Creat Clear Calc 50.89, Est GFR (MDRD) Af Amer 66, Est GFR (MDRD) Non-Af 55 L, BUN/Creatinine Ratio 16.8, Gluco se 133 H, Calcium 8.8, Total Bilirubin 0.60, AST 12 L, ALT 28, Alkaline Phosphatase 85, Total Creatine Kinase 91, Total Protein 6.2 L, Albumin 3.3, Globulin 2.9, Albumin/Globulin Ratio 1.1 10/01/21 11:05: Lactic Acid 0.7 10/01/21 11:15: Phosphorus 3.0, Magnesium 1.9 10/01/21 11:27: Ammonia 15.0 10/01/21 12:20: Urine Color Yellow, Urine Clarity Sl. Cloudy, Urine pH 5.0, Ur Specific [place] 1.020, Urine Protein 100 H, Urine Glucose (UA) Normal, Urine Ketones Negative, Urine Occult Blood 150 H, Urine Nitrite Negative, Urine Bilirubin Negative, Urine Urobilinogen Normal, Ur Leukocyte Esterase 500 H, Urine RBC 10-25 SEEN, Urine WBC 25-50 SEEN, Ur Squamous Epith Cells 0-5 SEEN, U rine Bacteria 1+, Urine Mucus 0 SEEN Micro: Microbiology 10/01/21 13:50 Nasal Secretion SARS-CoV-2 Antigen (Rapid) - Final Radiology Impression Brain CT 10/01/21 11:12 IMPRESSION: Chronic involutional changes of the brain. Electronically Signed: Cliff Priest MD at 13:52 EST , Chest X-Ray 10/01/21 12:02 IMPRESSION: Stable examination. No acute abnormality is seen. Electronically Signed: Cliff Priest MD at 12:24 EST ,
[2021-10-01] MEDS: 0.9% Saline Lock 10 ML Syringe IV (20:43)
[2021-10-01] MEDS: proCHLORPERazine 10 MG/2 ML Vial 5 MG IV (20:43)
[2021-10-01] MEDS: Menthol/Lanolin/Calamine/Znox 113 GM Tube 1 APPLIC TOPICAL (21:13)
[2021-10-01] MEDS: Nystatin Powder 15gm Bottle 1 APPLIC TOPICAL (21:13)
[2021-10-01] MEDS: Doxazosin 4 MG Tablet 8 MG PO (21:20)
[2021-10-01] MEDS: Montelukast 10 MG Tablet PO (21:20)
[2021-10-01] MEDS: oxyCODONE 5 MG Tablet PO (21:20)
[2021-10-01] MEDS: Enoxaparin 40 MG/0.4 ML Syringe SC (21:20)
[2021-10-01] MEDS: Losartan Potassium 50 MG Tablet PO (21:20)
[2021-10-01] MEDS: Carvedilol 25 MG Tablet PO (21:20)
[2021-10-01] MEDS: Tacrolimus Anhydrous 1 MG Capsule PO (21:20)
[2021-10-01] MEDS: Mycophenolate Mofetil 250 MG Capsule 500 MG PO (21:20)
[2021-10-01] MEDS: Allopurinol 300 MG Tablet PO (21:20)
[2021-10-01] MEDS: Atorvastatin Calcium 40 MG Tablet PO (21:20)
[2021-10-01] MEDS: Carvedilol 12.5 MG Tablet PO (21:21)
[2021-10-02 03:50] VITALS: BP 172/118; PULSE 81
[2021-10-02] MEDS: hydrALAZINE 20 MG/ML Vial 10 MG IV (03:50)
[2021-10-02] MEDS: proCHLORPERazine 10 MG/2 ML Vial 5 MG IV (05:20)
[2021-10-02] MEDS: oxyCODONE 5 MG Tablet PO ×3 (06:00→22:00)
[2021-10-02] MEDS: Aspirin E.C. 81 MG Tablet PO (08:00)
[2021-10-02] MEDS: predniSONE 5 MG Tablet PO (08:00)
[2021-10-02] MEDS: 0.9% Saline Lock 10 ML Syringe IV (09:00)
[2021-10-02] MEDS: Carvedilol 25 MG Tablet PO ×2 (10:00→22:00)
[2021-10-02] MEDS: Nystatin Powder 15gm Bottle 1 APPLIC TOPICAL ×2 (10:00→22:00)
[2021-10-02] MEDS: Clopidogrel Bisulfate 75 MG Tablet PO (10:00)
[2021-10-02] MEDS: Tacrolimus Anhydrous 1 MG Capsule PO ×2 (10:00→22:00)
[2021-10-02] MEDS: Carvedilol 12.5 MG Tablet PO ×2 (10:00→22:00)
[2021-10-02] MEDS: Pantoprazole Sodium 40 MG Tablet PO (10:00)
[2021-10-02] MEDS: Mycophenolate Mofetil 250 MG Capsule 500 MG PO ×2 (10:00→22:00)
[2021-10-02] MEDS: Losartan Potassium 50 MG Tablet PO ×2 (10:00→22:00)
[2021-10-02] MEDS: Tolterodine Tartrate 4 MG CAP.SA PO (10:00)
[2021-10-02] MEDS: Menthol/Lanolin/Calamine/Znox 113 GM Tube 1 APPLIC TOPICAL ×2 (10:00→22:00)
[2021-10-02] MEDS: NIFEdipine 90 MG Tablet PO (10:00)
--- NOTE | 2021-10-02 17:11 | PN_ITS ---
DATE OF SERVICE 10/02/2021 SUBJECTIVE Follow-up for confusion, encephalopathy, Newell cirrhosis status post liver and kidney transplant. Patient also had loose watery bowel movement. Yesterday vomited couple times but could not be verified by the nursing staff. OBJECTIVE General: Confused, disoriented x3, patient does not remember time, person, situation and place. Does not remember the name of president. Morbid obese BMI 47.9 kg/m? HEENT: Atraumatic, PERRLA, EOMI, Normocephalic Oral: Oral mucosa moist. Deep oropharyngeal structures crowded and could not be clearly delineated. Neck: Supple, No JVD, Negative Carotid Bruits Lungs: Air entry diminished in bilateral lung bases. No crepitation/rhonchi Cardiovascular: Sinus rhythm, Normal S1, Normal S2, No murmurs Abdomen: Bowel Sounds Present, Soft, Non Tender, Non-Distended. Had liquid bowel movement. No obvious blood : No suprapubic tenderness. No scrotal or penile urethra tenderness no renal angle tenderness. Extremities: Bilateral leg pitting, 2+ edema, Capillary Refill Less than 3 Seconds Skin: Bilateral groin erythematous rash Musculoskeletal: No Tenderness to Palpation of Joints or Extremities Neurological: Complete neuro exam unobtainable. Cranial nerves 2 through 12 intact. nonfocal exam Psych/Mental Status: Confused, disoriented ASSESSMENT/PLAN 1. Acute encephalopathy probably due to UTI but other possibilities includes medications interactions/polypharmacy or metabolic: Patient is being admitted in [facility] with telemetry. Try to treat the underlying disorder. Monitor labs. Patient is on multiple immunosuppressant medications especially tacrolimus which can cause encephalopathy but unfortunately tacrolimus serum level is a send out and he generally takes about 5 to 7 days for result to come back. ER physician talked to [facility] and they do not have bed but they accepted the patient and advised to call after 24 hours. 10/02: Discussed with the patient nursing staff. Patient is still confused and disoriented. CBC reviewed. CMP mag and phosphorus ordered now and daily a.m. Labs were ordered yesterday but not done. 2. Complicated UTI/cystitis: Patient has dysuria. Started on ceftriaxone. Follow urine culture and blood culture. Monitor bladder scan for urinary retention. Lactic acid normal. No leukocytosis. No tachycardia. 10/02: Urine culture pending. Continue antibiotic. Afebrile 3. Hypertension: Blood pressure is high probably because of wrong cuff size as I saw cuff in the left forearm. Resume patient's blood pressure medications 10/02: Blood pressure is elevated 159/109. 4 recent CVA with aphasia status post TPA in June 2021: Patient had complete evaluation of symptoms 5. NEWELL elated cirrhosis and end-stage renal disease status post liver and kidney transplant: Normal potassium. Creatinine on baseline. [facility] generation engineer is consulted to manage immunosuppression medications. 10/02: Discussed with the generation engineer. Continue suppressing medications. Discussed with the nursing staff. If the bed is available patient can be transferred to [facility] 6. Obstructive sleep apnea, chronic Degenerative joint arthritis and lower extremity edema: CPAP at night. Continue PT and OT. 7. History of non-STEMI/Chronic HFpEF: Patient had echo in June 2020 for work-up of his stroke. EF 60%. Mild concentric LVH. Stage I diastolic dysfunction. 5. VTE prophylaxis, high risk Due to morbid obesity.Lovenox 40 mils subcu twice daily. Bilateral SCD. Discontinue if platelet count drops less than 50,000 or hemoglobin less than 8 g%. Living will/advanced directive/end of life care: Full code I again saw the patient 4:45 PM on 09/2921. Patient looked better and can answer it is day or nighttime. He looked that he understands the question. I talked to the patient's Ms. Smalls given the clinical update. Labs reviewed. K3.5 and 1 dose of potassium given. Discussed with the nursing staff. His further raise the concern of poor functional status and not ambulatory at home therefore had a desire for evaluation for SNF placement if needed. Will discuss with case management. Billing charge: [id number]
[2021-10-02] MEDS: Potassium Chloride Oral Tablet 20 MEQ 40 MEQ PO (17:30)
[2021-10-02 19:02] LABS: ALB/GLOB Ratio 1.1 RATIO (0.9-2.4); AST(SGOT) 12 U/L (15-37); Alanine Aminotransfer ALT/SGPT 26 U/L (16-61); Albumin, Serum 3.3 g/dL (3.2-5.0); Alkaline Phosphatase 81 U/L (45-117); Anion Gap 8 (5-15); BUN 18 mg/dL (7-18); BUN/Creat Ratio 15.8 RATIO (10-20); Chloride 112 mmol/L (98-107); Creatinine, Serum 1.14 mg/dL (0.70-1.30); EST Glomerular Filtration Rate 68 mL/min (>60); Est Glom Filt Rate - Afr Amer 82 mL/min (>60); Estimated Creatinine Clearance 61.16 ml/min; Globulin 2.9 g/dL (2.2-4.2); Glucose 156 mg/dL (74-106); Potassium 3.5 mmol/L (3.5-5.1); Protein, Total 6.2 g/dL (6.4-8.2); Sodium Level 142 mmol/L (136-145)
[2021-10-02 20:30] VITALS: BP 140/90; PULSE 88; RESP 18; TEMP 36.6; O2SAT 94
[2021-10-02] MEDS: Allopurinol 300 MG Tablet PO (22:00)
[2021-10-02] MEDS: Atorvastatin Calcium 40 MG Tablet PO (22:00)
[2021-10-02] MEDS: Enoxaparin 40 MG/0.4 ML Syringe SC (22:00)
[2021-10-02] MEDS: Doxazosin 4 MG Tablet 8 MG PO (22:00)
[2021-10-02] MEDS: Montelukast 10 MG Tablet PO (22:00)
[2021-10-02 22:06] LABS: Absolute Lymphocyte Count 1.83 X10^3/uL (0.83-4.51); Absolute Neutrophil Count 4.2 X10^3/uL (2.0-7.7); Basophil# 0.01 X10^3/uL; Basophil% 0.2 % (0-1); Eosinophil# 0.12 X10^3/uL; Eosinophils% 1.8 % (0-5); Hematocrit 43.8 % (40-54); Hemoglobin 14.8 g/dL (13.0-16.5); Lymphocyte # 1.83 X10^3/ul (0.83-4.51); Lymphocyte % 27.5 % (19-41); Mean Corp Hgb Conc 33.8 g/dL (32-36); Mean Corpuscular Hgb 29.7 pg (27.0-32.0); Mean Corpuscular Volume 87.8 fL (80-94); Mean Platelet Vol. 10.9 fl (6.2-12.0); Monocyte# 0.48 X10^3/uL; Monocyte% 7.2 % (0-10); NRBC Flagged by Analyzer 0 % (0-5); Neutrophil # 4.18 X10^3/uL (2.7-7.7); Neutrophil % 62.7 % (47-70); Platelet Count 137 K/mm3 (150-450); RBC Distribution Width CV 14.1 % (11.6-14.6); RBC Distribution Width SD 45.2 fl (35.1-43.9); Red Blood Count 4.99 M/mm3 (4.6-6.2); White Blood Count 6.7 K/mm3 (4.4-11.0)
[2021-10-03] VITALS (8 sets, daily range): BP systolic 139–156; BP diastolic 79–98; PULSE 70–97; RESP 18–20; TEMP 36.4–37; O2SAT 91–96
[2021-10-03 01:09] LABS: Magnesium 1.9 mg/dL (1.6-2.6); Phosphorus 2.7 mg/dL (2.5-4.9)
[2021-10-03] MEDS: oxyCODONE 5 MG Tablet PO ×3 (06:04→21:04)
[2021-10-03 06:21] LABS: Absolute Lymphocyte Count 2.39 X10^3/uL (0.83-4.51); Absolute Neutrophil Count 3.4 X10^3/uL (2.0-7.7); Basophil# 0.02 X10^3/uL; Basophil% 0.3 % (0-1); Eosinophil# 0.15 X10^3/uL; Eosinophils% 2.3 % (0-5); Hemoglobin 12.8 g/dL (13.0-16.5); Lymphocyte # 2.39 X10^3/ul (0.83-4.51); Lymphocyte % 36.2 % (19-41); Mean Corpuscular Hgb 28.8 pg (27.0-32.0); Mean Corpuscular Volume 89.9 fL (80-94); Mean Platelet Vol. 10.7 fl (6.2-12.0); Monocyte# 0.59 X10^3/uL; Monocyte% 8.9 % (0-10); NRBC Flagged by Analyzer 0 % (0-5); Neutrophil # 3.43 X10^3/uL (2.7-7.7); Neutrophil % 51.8 % (47-70); Platelet Count 156 K/mm3 (150-450); RBC Distribution Width CV 14.4 % (11.6-14.6); RBC Distribution Width SD 46.9 fl (35.1-43.9); Red Blood Count 4.45 M/mm3 (4.6-6.2); White Blood Count 6.6 K/mm3 (4.4-11.0)
[2021-10-03 07:12] LABS: ALB/GLOB Ratio 1.1 RATIO (0.9-2.4); AST(SGOT) 14 U/L (15-37); Alanine Aminotransfer ALT/SGPT 26 U/L (16-61); Albumin, Serum 3.2 g/dL (3.2-5.0); Alkaline Phosphatase 77 U/L (45-117); Anion Gap 7 (5-15); BUN 24 mg/dL (7-18); BUN/Creat Ratio 12.2 RATIO (10-20); Calcium,Total 8.8 mg/dL (8.5-10.1); Chloride 112 mmol/L (98-107); Creatinine, Serum 1.97 mg/dL (0.70-1.30); EST Glomerular Filtration Rate 36 mL/min (>60); Est Glom Filt Rate - Afr Amer 44 mL/min (>60); Estimated Creatinine Clearance 35.39 ml/min; Globulin 2.8 g/dL (2.2-4.2); Glucose 145 mg/dL (74-106); Magnesium 1.9 mg/dL (1.6-2.6); Phosphorus 3.2 mg/dL (2.5-4.9); Potassium 3.9 mmol/L (3.5-5.1); Sodium Level 141 mmol/L (136-145)
--- NOTE | 2021-10-03 08:55 | PN.HOSP_ITS ---
Subjective Subjective Patient is more awake and alert but is still confused to time place and person. He is able to tell the difference between day and night. BUN/creatinine is elevated, 24/1.97 with estimated creatinine clearance 35 mill per minute. Baseline about 1.3 mg/dL Objective Data Objective Data Vital Signs: Vital Signs Temp Pulse Resp BP Pulse Ox 98.1 F 77 20 H 144/90 H 91 10/03/21 08:42 10/03/21 08:42 10/03/21 08:42 10/03/21 08:42 10/03/21 08:42 Oxygen Delivery Method Room Air Weight: 313 lb Body Mass Index (BMI) 45.9 Intake & Output: Intake and Output for Last 24 Hours 10/01/21 10/02/21 10/03/21 23:59 23:59 23:59 Intake Total 50 / 50 Balance 50 / 50 Lab / Micro Data Result Diagrams: 10/03/21 05:30 10/03/21 05:30 Labs: Laboratory Results - last 24 hr 10/02/21 05:15: WBC 6.7, RBC 4.99, Hgb 14.8, Hct 43.8, MCV 87.8, MCH 29.7, MCHC 33.8, RDW Std Deviation 45.2 H, RDW Coeff of Leonie 14.1, Plt Count 137 L, MPV 10.9, Immature Gran % (Auto) 0.600, Neut % (Auto) 62.7, Lymph % (Auto) 27.5, Teller % (Auto) 7.2, Eos % (Auto) 1.8, Baso % (Auto) 0.2, Absolute Neuts (auto) 4.2, Absolute Lymphs (auto) 1.83, Nucleated RBC % 0 10/02/21 05:15: Sodium 142, Potassium 3.5, Chloride 112 H, Carbon Dioxide 22.0, Anion Gap 8, BUN 18, Creatinine 1.14, Estim Creat Clear Calc 61.16, Est GFR (MDRD) Af Amer 82, Est GFR (MDRD) Non-Af 68, BUN/Creatinine Ratio 15.8, Glucose 156 H, Calcium 9.0, Phosphorus 2.7, Magnesium 1.9, Total Bilirubin 0.80, AST 12 L, ALT 26, Alkaline Phosphatase 81, Total Protein 6.2 L, Albumin 3.3, Globulin 2.9, Albumin/Globulin Ratio 1.1 10/03/21 05:30: WBC 6.6, RBC 4.45 L, Hgb 12.8 L, Hct 40.0, MCV 89.9, MCH 28.8, MCHC 32.0 D, RDW Std Deviation 46.9 H, RDW Coeff of Leonie 14.4, Plt Count 156, MPV 10.7, Immature Gran % (Auto) 0.500, Neut % (Auto) 51.8, Lymph % (Auto) 36.2, Teller % (Auto) 8.9, Eos % (Auto) 2.3, Baso % (Auto) 0.3, Absolute Neuts (auto) 3.4, Absolute Lymphs (auto) 2.39, Nucleated RBC % 0 10/03/21 05:30: Sodium 141, Potassium 3.9, Chloride 112 H, Carbon Dioxide 22.0, Anion Gap 7, BUN 24 H, Creatinine 1.97 H, Estim Creat Clear Calc 35.39, Est GFR (MDRD) Af Amer 44 L, Est GFR (MDRD) Non-Af 36 L, BUN/Creatinine Ratio 12.2, Glucose 145 H, Calcium 8.8, Phosphorus 3.2, Magnesium 1.9, Total Bilirubin 0.70, AST 14 L, ALT 26, Alkaline Phosphatase 77, Total Protein 6.0 L, Albumin 3.2, Globulin 2.8, Albumin/Globulin Ratio 1.1 Micro: Microbiology 10/01/21 11:05 Blood Culture (Wb) - Anticubital Right Blood Culture - Preliminary No growth in 48 hours. 10/01/21 11:15 Blood Culture (Wb) - Anticubital Left Blood Culture - Preliminary No growth in 48 hours. 10/01/21 12:20 Urine, Clean Catch Urine Culture - Preliminary GNR lactose pool installer Gram negative faheem 10/01/21 13:50 Nasal Secretion SARS-CoV-2 Antigen (Rapid) - Final Physical Exam Narrative General: Confused, disoriented x3, morbid obese BMI 47.9 kg/m? HEENT: Atraumatic, PERRLA, EOMI, Normocephalic Oral: Oral mucosa dry. No Gingival or Mucosal Lesions/ Ulcerations Neck: Supple, No JVD, Negative Carotid Bruits Lungs: Air entry diminished in bilateral lung bases. No crepitation/rhonchi Cardiovascular: Sinus rhythm, Normal S1, Normal S2, No murmurs Abdomen: Bowel Sounds Present, Soft, Non Tender, Non-Distended : No suprapubic tenderness. No scrotal or penile urethra tenderness no renal angle tenderness. Extremities: Bilateral leg pitting, 2+ edema, Capillary Refill Less than 3 Seconds Skin: Bilateral groin erythematous rash Musculoskeletal: No Tenderness to Palpation of Joints or Extremities Neurological: Complete neuro exam unobtainable. In general cranial nerves intact. DTR 2+/4, nonfocal exam Psych/Mental Status: Confused, disoriented Assessment & Plan Assessment/Plan (1) Encephalopathy: (2) UTI (urinary tract infection): QUALIFIERS: Hematuria presence: without hematuria Urinary tract infection type: acute cystitis Qualified Code(s): N30.00 - Acute cystitis without hematuria PLAN: . Acute encephalopathy probably due to UTI but other possibilities includes medications interactions/polypharmacy or metabolic: Patient is being admitted in [facility] with telemetry. Try to treat the underlying disorder. Monitor labs. Patient is on multiple immunosuppressant medications especially tacrolimus which can cause encephalopathy but unfortunately tacrolimus serum level is a send out and he generally takes about 5 to 7 days for result to come back. ER physician talked to [facility] and they do not have bed but they accepted the patient and advised to call after 24 hours. 10/02: Discussed with the patient nursing staff. Patient is still confused and disoriented. CBC reviewed. Labs were reviewed. Potassium 3.51 dose of K?Dur 40 M EQ was given 10/03: Patient has DNI definition but still confused and cannot tell his name, place, age, month and the year. On 10/02 after discussion with she prefers going to rehab patient is not very ambulatory at home. 2. Complicated UTI/cystitis: Patient has dysuria. Started on ceftriaxone. Follow urine culture and blood culture. Monitor bladder scan for urinary retention. Lactic acid normal. No leukocytosis. No tachycardia. 10/03: urine culture shows gram-negative faheem lactose pool installer [phone] patient had dysuria therefore we will treat it. Continue ceftriaxone. Afebrile 3. Hypertension: Blood pressure is high probably because of wrong cuff size as I saw cuff in the left forearm. Resume patient's blood pressure medications 10/02: Blood pressure is elevated 159/109. 10/03: BP is better controlled. 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 NEWELL elated cirrhosis and end-stage renal disease status post liver and kidney transplant: Normal potassium. Creatinine on baseline. [place] biomedical service engineer is consulted to manage immunosuppression medications. 10/02: Discussed with the biomedical service engineer. Continue suppressing medications. Discussed with the nursing staff. If the bed is available patient can be transferred to [facility] main 10/03: [facility] was called but nonverbal. Patient's preferred to stay here. 6. Acute kidney injury on CKD 3 AAA status post kidney transplant: I think his DANA is most probably prerenal. Normal saline 100 mL/h for 1 L ordered. Hold today tacrolimus. Losartan and Motrin as needed discontinued. Allopurinol dose adjusted to 100 mg nightly daily. Mycophenolate continued. Medical Services Coordinator on board and discussed with with him. Prograf serum level is a send out test, received on 10/02 is still pending. 6. Obstructive sleep apnea, chronic Degenerative joint arthritis and lower extremity edema: CPAP at night. Continue PT and OT. 7. History of non-STEMI/Chronic HFpEF: Patient had echo in June 2020 for work-up of his stroke. EF 60%. Mild concentric LVH. Stage I diastolic dysfunction. 5. VTE prophylaxis, high risk Due to morbid obesity.Lovenox 40 mils subcu twice daily. Bilateral SCD. Discontinue if platelet count drops less than 50,000 or hemoglobin less than 8 g%. Living will/advanced directive/end of life care: Full code Total time of the visit including total time spent in counseling or coordination of care, (more than 50% of the total time, spent in obtaining medical informat ion from nurses and other ancillary care providers,explaining to the patient about labs, imaging, diagnosis and management), discussion with consultants, adjustment of immunosuppression medications with complex comorbidity of kidney and liver transplant, review of labs and imaging is 40 minutes. Charges/Coding Visit Charges Inpatient E&M: 13673 Subs Hosp L3
[2021-10-03] MEDS: Carvedilol 25 MG Tablet PO ×2 (11:03→21:04)
[2021-10-03] MEDS: Clopidogrel Bisulfate 75 MG Tablet PO (11:04)
[2021-10-03] MEDS: Aspirin E.C. 81 MG Tablet PO (11:04)
[2021-10-03] MEDS: predniSONE 5 MG Tablet PO (11:04)
[2021-10-03] MEDS: Pantoprazole Sodium 40 MG Tablet PO (11:04)
[2021-10-03] MEDS: Tolterodine Tartrate 4 MG CAP.SA PO (11:05)
[2021-10-03] MEDS: Mycophenolate Mofetil 250 MG Capsule 500 MG PO ×2 (11:05→21:04)
[2021-10-03] MEDS: NIFEdipine 90 MG Tablet PO (11:05)
[2021-10-03] MEDS: Nystatin Powder 15gm Bottle 1 APPLIC TOPICAL ×2 (11:06→21:06)
[2021-10-03] MEDS: 0.9% Normal Saline 1,000 ML 100 ML IV (11:07)
[2021-10-03] MEDS: Menthol/Lanolin/Calamine/Znox 113 GM Tube 1 APPLIC TOPICAL ×2 (11:07→21:06)
[2021-10-03] MEDS: Ceftriaxone 1 GM/50 mL Premix Q24 IV (11:07)
[2021-10-03] MEDS: 0.9% Saline Lock 10 ML Syringe IV ×2 (11:07→21:07)
[2021-10-03] MEDS: Carvedilol 12.5 MG Tablet PO ×2 (11:08→21:04)
--- NOTE | 2021-10-03 18:18 | NURSING ---
spoke w/ Willam from [facility] RE: bed for transfer-after this nurse speaking with dr canchola, Willam was informed that we are still wanting bed for transfer at this time and was agreeable to that
[2021-10-03] MEDS: Enoxaparin 40 MG/0.4 ML Syringe SC (21:04)
[2021-10-03] MEDS: Doxazosin 4 MG Tablet 8 MG PO (21:04)
[2021-10-03] MEDS: Montelukast 10 MG Tablet PO (21:04)
[2021-10-03] MEDS: Tacrolimus Anhydrous 1 MG Capsule PO (21:04)
[2021-10-03] MEDS: Atorvastatin Calcium 40 MG Tablet PO (21:04)
[2021-10-03] MEDS: Allopurinol 100 MG Tablet PO (21:06)
--- NOTE | 2021-10-04 00:19 | NURSING ---
spoke w/ [facility] transfer, made aware pt still needs bed. states they don't have bed yet but will call again for update.
[2021-10-04 02:15] VITALS: BP 133/87; PULSE 71; RESP 18; TEMP 37.1; O2SAT 93
[2021-10-04] MEDS: oxyCODONE 5 MG Tablet PO ×3 (06:33→21:31)
[2021-10-04 06:48] LABS: ALB/GLOB Ratio 0.8 RATIO (0.9-2.4); AST(SGOT) 14 U/L (15-37); Alanine Aminotransfer ALT/SGPT 26 U/L (16-61); Albumin, Serum 2.7 g/dL (3.2-5.0); Alkaline Phosphatase 72 U/L (45-117); Anion Gap 6 (5-15); BUN 27 mg/dL (7-18); Calcium,Total 8.3 mg/dL (8.5-10.1); Chloride 114 mmol/L (98-107); Creatinine, Serum 1.69 mg/dL (0.70-1.30); EST Glomerular Filtration Rate 43 mL/min (>60); Est Glom Filt Rate - Afr Amer 52 mL/min (>60); Estimated Creatinine Clearance 41.25 ml/min; Globulin 3.2 g/dL (2.2-4.2); Glucose 128 mg/dL (74-106); Magnesium 1.9 mg/dL (1.6-2.6); Phosphorus 3.6 mg/dL (2.5-4.9); Potassium 3.8 mmol/L (3.5-5.1); Protein, Total 5.9 g/dL (6.4-8.2); Sodium Level 139 mmol/L (136-145)
[2021-10-04 06:55] LABS: Absolute Lymphocyte Count 2.17 X10^3/uL (0.83-4.51); Absolute Neutrophil Count 3.3 X10^3/uL (2.0-7.7); Basophil# 0.02 X10^3/uL; Basophil% 0.3 % (0-1); Eosinophil# 0.22 X10^3/uL; Eosinophils% 3.5 % (0-5); Hematocrit 38.4 % (40-54); Hemoglobin 12.1 g/dL (13.0-16.5); Lymphocyte # 2.17 X10^3/ul (0.83-4.51); Lymphocyte % 34.6 % (19-41); Mean Corp Hgb Conc 31.5 g/dL (32-36); Mean Corpuscular Hgb 28.8 pg (27.0-32.0); Mean Corpuscular Volume 91.4 fL (80-94); Mean Platelet Vol. 10.5 fl (6.2-12.0); Monocyte# 0.53 X10^3/uL; Monocyte% 8.4 % (0-10); NRBC Flagged by Analyzer 0 % (0-5); Neutrophil # 3.32 X10^3/uL (2.7-7.7); Neutrophil % 52.9 % (47-70); Platelet Count 147 K/mm3 (150-450); RBC Distribution Width CV 14.1 % (11.6-14.6); RBC Distribution Width SD 47.3 fl (35.1-43.9); White Blood Count 6.3 K/mm3 (4.4-11.0)
[2021-10-04 08:08] VITALS: BP 145/84; PULSE 67; RESP 18; TEMP 36.9; O2SAT 93
[2021-10-04 08:23] VITALS: O2SAT 93
--- NOTE | 2021-10-04 08:37 | CASEMGMT ---
Social Work Note Per horticultural farmworker questions, pt has not completed HCPOA/LW and declined additional information. Per RN CM assessment, pt's stated pt has HCPOA and LW and aware they are not on file at [facility]. Toya Mg COAL TRAMMER, SHEETMETAL WORKER
[2021-10-04] MEDS: Tolterodine Tartrate 4 MG CAP.SA PO (09:12)
[2021-10-04] MEDS: Carvedilol 12.5 MG Tablet PO ×2 (09:12→21:29)
[2021-10-04] MEDS: predniSONE 5 MG Tablet PO (09:12)
[2021-10-04] MEDS: Carvedilol 25 MG Tablet PO ×2 (09:12→21:29)
[2021-10-04] MEDS: Clopidogrel Bisulfate 75 MG Tablet PO (09:12)
[2021-10-04] MEDS: NIFEdipine 90 MG Tablet PO (09:12)
[2021-10-04] MEDS: Pantoprazole Sodium 40 MG Tablet PO (09:12)
[2021-10-04] MEDS: Smz/Tmp Ds Tablet 1 TABLET PO (09:12)
[2021-10-04] MEDS: Mycophenolate Mofetil 250 MG Capsule 500 MG PO ×2 (09:12→21:28)
[2021-10-04] MEDS: Tacrolimus Anhydrous 1 MG Capsule PO ×2 (09:12→21:29)
[2021-10-04] MEDS: Aspirin E.C. 81 MG Tablet PO (09:13)
[2021-10-04] MEDS: Menthol/Lanolin/Calamine/Znox 113 GM Tube 1 APPLIC TOPICAL ×2 (09:13→21:28)
[2021-10-04] MEDS: Nystatin Powder 15gm Bottle 1 APPLIC TOPICAL ×2 (09:13→21:28)
[2021-10-04] MEDS: Ceftriaxone 1 GM/50 mL Premix Q24 IV (09:31)
[2021-10-04] MEDS: 0.9% Saline Lock 10 ML Syringe IV ×3 (09:31→15:49)
[2021-10-04 14:06] VITALS: BP 141/88; PULSE 70; RESP 18; TEMP 36.8; O2SAT 95
--- NOTE | 2021-10-04 14:11 | PCM.PN.HOSP ---
Subjective Subjective Feels well. Wants to go home. Objective Data Objective Data Vital Signs: Vital Signs Temp Pulse Resp BP Pulse Ox 36.8 C 70 18 141/88 H 95 10/04/21 14:06 10/04/21 14:06 10/04/21 14:06 10/04/21 14:06 10/04/21 14:06 Oxygen Delivery Method Room Air Weight: 142.7 kg Body Mass Index (BMI) 45.9 Intake & Output: Intake and Output for Last 24 Hours 10/02/21 10/03/21 10/04/21 23:59 23:59 23:59 Intake Total 1050 / 1050 1050.00 / 1050.00 250 / 250 Output Total 250 / 250 200 / 200 Balance 1050 / 1050 800.00 / 800.00 50 / 50 Lab / Micro Data Result Diagrams: 10/04/21 06:50 10/04/21 05:29 Labs: Laboratory Results - last 24 hr 10/04/21 05:29: Sodium 139, Potassium 3.8, Chloride 114 H, Carbon Dioxide 19.0 L, Anion Gap 6, BUN 27 H, Creatinine 1.69 H, Estim Creat Clear Calc 41.25, Est GFR (MDRD) Af Amer 52 L, Est GFR (MDRD) Non-Af 43 L, BUN/Creatinine Ratio 16.0, Glucose 128 H, Calcium 8.3 L, Phosphorus 3.6, Magnesium 1.9, Total Bilirubin 0.60, AST 14 L, ALT 26, Alkaline Phosphatase 72, Total Protein 5.9 L, Albumin 2.7 L, Globulin 3.2, Albumin/Globulin Ratio 0.8 L 10/04/21 06:50: WBC 6.3, RBC 4.20 L, Hgb 12.1 L, Hct 38.4 L, MCV 91.4, MCH 28.8, MCHC 31.5 L, RDW Std Deviation 47.3 H, RDW Coeff of Leonie 14.1, Plt Count 147 L, MPV 10.5, Immature Gran % (Auto) 0.300, Neut % (Auto) 52.9, Lymph % (Auto) 34.6, Barry % (Auto) 8.4, Eos % (Auto) 3.5, Baso % (Auto) 0.3, Absolute Neuts (auto) 3.3, Absolute Lymphs (auto) 2.17, Nucleated RBC % 0 Micro: Microbiology 10/01/21 12:20 Urine, Clean Catch Urine Culture - Final Citrobacter freundii Pseudomonas aeroginosa 10/01/21 11:05 Blood Culture (Wb) - Anticubital Right Blood Culture - Preliminary No growth in 48 hours. 10/01/21 11:15 Blood Culture (Wb) - Anticubital Left Blood Culture - Preliminary No growth in 48 hours. 10/01/21 13:50 Nasal Secretion SARS-CoV-2 Antigen (Rapid) - Final Physical Exam Const alert Constitutional Narrative: alert to self only. Eyes PERRL Resp normal respiratory effort, no retractions, no use of accessory muscles and clear to auscultation bilaterally Cardio regular rate, regular rhythm, S1 normal heart sound and S2 normal heart sound GI normal to inspection, nondistended, normoactive bowel sounds, soft to palpation, non-tender and non-distended Assessment & Plan Assessment/Plan (1) Encephalopathy: (2) UTI (urinary tract infection): QUALIFIERS: Urinary tract infection type: acute cystitis Hematuria presence: without hematuria Qualified Code(s): N30.00 - Acute cystitis without hematuria PLAN: 1. Acute encephalopathy ongoing probably due to UTI but other possibilities includes medications interactions/polypharmacy or metabolic: Try to treat the underlying disorder. Monitor labs. Patient is on multiple immunosuppressant medications especially tacrolimus which can cause encephalopathy but unfortunately tacrolimus serum level is a send out and he generally takes about 5 to 7 days for result to come back. ER physician talked to [facility] and they do not have bed but they accepted the patient and advised to call after 24 hours. 10/02: Discussed with the patient nursing staff. Patient is still confused and disoriented. CBC reviewed. Labs were reviewed. Potassium 3.51 dose of K?Dur 40 M EQ was given 10/03: Patient has DNI definition but still confused and cannot tell his name, place, age, month and the year. On 10/02 after discussion with she prefers going to rehab patient is not very ambulatory at home. 2. Complicated UTI/cystitis: due to Citrobacter and pseudomonas Patient has dysuria. Started on ceftriaxone. Follow urine culture and blood culture. Monitor bladder scan for urinary retention. Lactic acid normal. No leukocytosis. No tachycardia. 10/03: urine culture shows gram-negative faheem lactose dietitian teacher [phone] patient had dysuria therefore we will treat it. Continue ceftriaxone. Afebrile 10/04: change to LVQ 3. DANA improving 4. Hypertension: Blood pressure is high probably because of wrong cuff size as I saw cuff in the left forearm. Resume patient's blood pressure medications 10/02: Blood pressure is elevated 159/109. 10/03: BP is better controlled. 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 NEWELL elated cirrhosis and end-stage renal disease status post liver and kidney transplant: Normal potassium. Creatinine on baseline. [place] aviation operations specialist is consulted to manage immunosuppression medications. 10/02: Discussed with the aviation operations specialist. Continue suppressing medications. Discussed with the nursing staff. If the bed is available patient can be transferred to [facility] 10/03: [facility] was called but nonverbal. Patient's preferred to stay here. 6. Obstructive sleep apnea, chronic Degenerative joint arthritis and lower extremity edema: CPAP at night. Continue PT and OT. 7. History of non-STEMI/Chronic HFpEF: Patient had echo in June 2020 for work-up of his stroke. EF 60%. Mild concentric LVH. Stage I diastolic dysfunction. 5. VTE prophylaxis, high risk Due to morbid obesity.Lovenox 40 mils subcu twice daily. Bilateral SCD. Discontinue if platelet count drops less than 50,000 or hemoglobin less than 8 g%. Living will/advanced directive/end of life care: Full code Charges/Coding Visit Charges Inpatient E&M: 60010 Subs Hosp L2
--- NOTE | 2021-10-04 15:22 | PN.RENAL_ITS ---
Subjective Subjective no new complaints Objective Data Objective Data Vital Signs: Vital Signs Temp Pulse Resp BP Pulse Ox 98.2 F 70 18 141/88 H 95 10/04/21 14:06 10/04/21 14:06 10/04/21 14:06 10/04/21 14:06 10/04/21 14:06 Oxygen Delivery Method Room Air Weight: 142.7 kg Body Mass Index (BMI) 45.9 Intake & Output: Intake and Output for Last 24 Hours 10/02/21 10/03/21 10/04/21 23:59 23:59 23:59 Intake Total 1050 / 1050 1050.00 / 1050.00 250 / 250 Output Total 250 / 250 200 / 200 Balance 1050 / 1050 800.00 / 800.00 50 / 50 Lab / Micro Data Result Diagrams: 10/04/21 06:50 10/04/21 05:29 Labs: Laboratory Results - last 24 hr 10/04/21 05:29: Sodium 139, Potassium 3.8, Chloride 114 H, Carbon Dioxide 19.0 L , Anion Gap 6, BUN 27 H, Creatinine 1.69 H, Estim Creat Clear Calc 41.25, Est GFR (MDRD) Af Amer 52 L, Est GFR (MDRD) Non-Af 43 L, BUN/Creatinine Ratio 16.0, Glucose 128 H, Calcium 8.3 L, Phosphorus 3.6, Magnesium 1.9, Total Bilirubin 0.60, AST 14 L, ALT 26, Alkaline Phosphatase 72, Total Protein 5.9 L, Albumin 2.7 L, Globulin 3.2, Albumin/Globulin Ratio 0.8 L 10/04/21 06:50: WBC 6.3, RBC 4.20 L, Hgb 12.1 L, Hct 38.4 L, MCV 91.4, MCH 28.8, MCHC 31.5 L, RDW Std Deviation 47.3 H, RDW Coeff of Leonie 14.1, Plt Count 147 L, MPV 10.5, Immature Gran % (Auto) 0.300, Neut % (Auto) 52.9, Lymph % (Auto) 34.6, [place] % (Auto) 8.4, Eos % (Auto) 3.5, Baso % (Auto) 0.3, Absolute Neuts (auto) 3.3, Absolute Lymphs (auto) 2.17, Nucleated RBC % 0 Micro: Microbiology 10/01/21 12:20 Urine, Clean Catch Urine Culture - Final Citrobacter freundii Pseudomonas aeroginosa 10/01/21 11:05 Blood Culture (Wb) - Anticubital Right Blood Culture - Preliminary No growth in 48 hours. 10/01/21 11:15 Blood Culture (Wb) - Anticubital Left Blood Culture - Prel iminary No growth in 48 hours. 10/01/21 13:50 Nasal Secretion SARS-CoV-2 Antigen (Rapid) - Final Physical Exam Narrative Alert awake oriented x 3 no obvious distress no pallor no icterus no JVD s1s2 no murmurs lungs clear abdomen soft no organomegaly no edema no cyanosis Assessment & Plan Assessment/Plan (1) Chronic kidney disease, stage 3a: (2) Kidney transplant recipient: PLAN: Baseline creatinine is around 1.3. He is on 3 drug regimen for immunosuppression including tacrolimus, CellCept, prednisone. Clinically does not look septic. Continue all 3 medications for now. No graft site t enderness. urine culture with citrobacter and pseudomonas. abx as per primary. cr is better. change in cr yesterday was likely hemodynamic. post void bladder scan is ok. (3) Immunosuppression:
[2021-10-04] MEDS: levoFLOXacin IV 500 MG/100 ML BAG 100 MG IV (15:49)
[2021-10-04 20:30] VITALS: BP 168/89; PULSE 68; RESP 18; TEMP 36.4; O2SAT 95
[2021-10-04] MEDS: Enoxaparin 40 MG/0.4 ML Syringe SC (21:28)
[2021-10-04] MEDS: Atorvastatin Calcium 40 MG Tablet PO (21:28)
[2021-10-04] MEDS: Allopurinol 100 MG Tablet PO (21:28)
[2021-10-04] MEDS: Montelukast 10 MG Tablet PO (21:29)
[2021-10-04] MEDS: Doxazosin 4 MG Tablet 8 MG PO (21:29)
[2021-10-05 03:03] VITALS: BP 159/99; PULSE 66; RESP 18; TEMP 36.4; O2SAT 95
[2021-10-05 05:49] LABS: Absolute Lymphocyte Count 2.03 X10^3/uL (0.83-4.51); Absolute Neutrophil Count 3.8 X10^3/uL (2.0-7.7); Basophil# 0.01 X10^3/uL; Basophil% 0.2 % (0-1); Eosinophil# 0.21 X10^3/uL; Eosinophils% 3.2 % (0-5); Hematocrit 36.9 % (40-54); Hemoglobin 12.7 g/dL (13.0-16.5); Lymphocyte # 2.03 X10^3/ul (0.83-4.51); Lymphocyte % 30.7 % (19-41); Mean Corp Hgb Conc 34.4 g/dL (32-36); Mean Corpuscular Hgb 29.9 pg (27.0-32.0); Mean Corpuscular Volume 86.8 fL (80-94); Mean Platelet Vol. 10.7 fl (6.2-12.0); Monocyte# 0.52 X10^3/uL; Monocyte% 7.9 % (0-10); NRBC Flagged by Analyzer 0 % (0-5); Neutrophil # 3.81 X10^3/uL (2.7-7.7); Neutrophil % 57.5 % (47-70); Platelet Count 144 K/mm3 (150-450); RBC Distribution Width SD 44.5 fl (35.1-43.9); Red Blood Count 4.25 M/mm3 (4.6-6.2); White Blood Count 6.6 K/mm3 (4.4-11.0)
[2021-10-05] MEDS: oxyCODONE 5 MG Tablet PO ×3 (06:38→20:23)
[2021-10-05 06:42] LABS: AST(SGOT) 15 U/L (15-37); Alanine Aminotransfer ALT/SGPT 28 U/L (16-61); Albumin, Serum 3.1 g/dL (3.2-5.0); Alkaline Phosphatase 73 U/L (45-117); Anion Gap 4 (5-15); BUN 31 mg/dL (7-18); Calcium,Total 8.5 mg/dL (8.5-10.1); Chloride 112 mmol/L (98-107); Creatinine, Serum 1.94 mg/dL (0.70-1.30); EST Glomerular Filtration Rate 37 mL/min (>60); Est Glom Filt Rate - Afr Amer 44 mL/min (>60); Estimated Creatinine Clearance 35.94 ml/min; Globulin 3.1 g/dL (2.2-4.2); Glucose 137 mg/dL (74-106); Phosphorus 3.5 mg/dL (2.5-4.9); Protein, Total 6.2 g/dL (6.4-8.2); Sodium Level 140 mmol/L (136-145)
[2021-10-05] MEDS: predniSONE 5 MG Tablet PO (08:34)
[2021-10-05] MEDS: Aspirin E.C. 81 MG Tablet PO (08:35)
[2021-10-05 09:00] VITALS: BP 118/74; PULSE 74; RESP 18; TEMP 37.1; O2SAT 94
[2021-10-05] MEDS: Pantoprazole Sodium 40 MG Tablet PO ×2 (09:58→20:24)
[2021-10-05] MEDS: NIFEdipine 90 MG Tablet PO (09:58)
[2021-10-05] MEDS: Tacrolimus Anhydrous 1 MG Capsule PO ×2 (09:58→20:25)
[2021-10-05] MEDS: Tolterodine Tartrate 4 MG CAP.SA PO (09:59)
[2021-10-05] MEDS: Clopidogrel Bisulfate 75 MG Tablet PO (09:59)
[2021-10-05] MEDS: Carvedilol 12.5 MG Tablet PO ×2 (09:59→20:24)
[2021-10-05] MEDS: Menthol/Lanolin/Calamine/Znox 113 GM Tube 1 APPLIC TOPICAL ×2 (10:00→20:23)
[2021-10-05] MEDS: Carvedilol 25 MG Tablet PO ×2 (10:01→20:24)
[2021-10-05] MEDS: Mycophenolate Mofetil 250 MG Capsule 500 MG PO ×2 (10:01→20:24)
[2021-10-05] MEDS: Nystatin Powder 15gm Bottle 1 APPLIC TOPICAL ×2 (10:01→20:23)
--- NOTE | 2021-10-05 10:12 | CASEMGMT ---
Social Work Note SW in to speak with pt to continue discussion of discharge plans. Pt is much more awake and engages appropriately in conversation. SW discussed Home vs SNF. Pt states he is not sure, states he hasn't really thought about it. Pt states he would like to see how he does with PT/OT today and then make determination. Patient was provided a list of SNF providers including quality and resource use data and consistent with the patient?s preferred geographic region, medical needs, and insurance network. SW to speak with pt again once pt works with PT/OT today. Plan: [employer] FILTER CHANGING TECHNICIAN, JOB COMPOSITOR
--- NOTE | 2021-10-05 11:39 | PN.RENAL_ITS ---
Subjective Subjective no new complaints Objective Data Objective Data Vital Signs: Vital Signs Temp Pulse Resp BP Pulse Ox 98.7 F 74 18 118/74 94 10/05/21 09:00 10/05/21 09:00 10/05/21 09:00 10/05/21 09:00 10/05/21 09:00 Oxygen Delivery Method Room Air Weight: 143.4 kg Body Mass Index (BMI) 45.9 Intake & Output: Intake and Output for Last 24 Hours 10/03/21 10/04/21 10/05/21 23:59 23:59 23:59 Intake Total 1050.00 / 1050.00 989.5 / 989.5 Output Total 250 / 250 425 / 425 Balance 800.00 / 800.00 564.5 / 564.5 Lab / Micro Data Result Diagrams: 10/05/21 05:13 10/05/21 05:13 Labs: Laboratory Results - last 24 hr 10/05/21 05:13: Sodium 140, Potassium 4.0, Chloride 112 H, Carbon Dioxide 24.0, Anion Gap 4 L, BUN 31 H, Creatinine 1.94 H, Estim Creat Clear Calc 35.94, Est GFR (MDRD) Af Amer 44 L, Est GFR (MDRD) Non-Af 37 L, BUN/Creatinine Ratio 16.0, Glucose 137 H, Calcium 8.5, Phosphorus 3.5, Magnesium 2.0, Total Bilirubin 0.60, AST 15, ALT 28, Alkaline Phosphatase 73, Total Protein 6.2 L, Albumin 3.1 L, Globulin 3.1, Albumin/Globulin Ratio 1.0 10/05/21 05:13: WBC 6.6, RBC 4.25 L, Hgb 12.7 L, Hct 36.9 L, MCV 86.8 D, MCH 29.9, MCHC 34.4 D, RDW Std Deviation 44.5 H, RDW Coeff of Leonie 14.0, Plt Count 144 L, MPV 10.7, Immature Gran % (Auto) 0.500, Neut % (Auto) 57.5, Lymph % (Auto) 30.7, [place] % (Auto) 7.9, Eos % (Auto) 3.2, Baso % (Auto) 0.2, Absolute Neuts (auto) 3.8, Absolute Lymphs (auto) 2.03, Nucleated RBC % 0 Micro: Microbiology 01/28/22 12:20 Urine, Clean Catch Urine Culture - Final Citrobacter freundii Pseudomonas aeroginosa 10/01/21 11:05 Blood Culture (Wb) - Anticubital Right Blood Culture - P reliminary No growth in 48 hours. 10/01/21 11:15 Blood Culture (Wb) - Anticubital Left Blood Culture - Preliminary No growth in 48 hours. 10/01/21 13:50 Nasal Secretion SARS-CoV-2 Antigen (Rapid) - Final Physical Exam Narrative Alert awake oriented x 3 no obvious distress no pallor no icterus no JVD s1s2 no murmurs lungs clear abdomen soft no organomegaly no edema no cyanosis Assessment & Plan Assessment/Plan (1) Chronic kidney disease, stage 3a: (2) Kidney transplant recipient: PLAN: Baseline creatinine is around 1.3. He is on 3 drug regimen for immunosuppression including tacrolimus, CellCept, prednisone. Clinically does not look septic. Continue all 3 medications for now. No graft site tenderness. urine culture with citrobacter and pseudomonas. abx as per primary. post void bladder scan is ok. Other than antibiotics, no other medication changes. No diarrhea. Tacrolimus level has been sent on and is still pending. Creatinine changes are likely hemodynamic changes. Continue home dose of medications for now. (3) Immunosuppression:
--- NOTE | 2021-10-05 12:48 | CASEMGMT ---
Social Work Note SW reviewed PT/OT. With OT, pt still max/mod assist of 1 and walked 2 feet. SW in to speak with pt. SW spoke with pt about recommendation of SNF. Pt states I need to speak to my about it. SW asked pt if he has tried to call her. Pt states he tried to call her this morning but was unable to reach her. Pt states he wants to know if his is coming in today. SW informed pt that this worker can call his and pt gave this worker permission to call his . SW placed a call to pt's Serina and spoke with her about discharge plans. SW reviewed PT/OT with her. Serina states pt needs to go to SNF. Serina asked about [facility]. SW informed Serina that TCU has no beds available. Serina states to try [facility] next and gave this worker permission to call all SNF in [place] to inquire about bed availability and who would be able to accept pt. Serina also states she is not able to come in today as she has a cold. SW back in to speak with pt. SW informed pt that this worker spoke with Serina. Serina reporting that she has a cold so she is not able to come in to see pt today. SW informed pt that Serina mentioned [facility] but they have no beds available. Serina also mentioned [facility]. Pt states I need to discuss this with her. SW informed pt that he is medically ready for discharge, SNF needs to be confirmed sooner than later. Pt states he will call his today. SW informed pt that this worker will come back this afternoon to continue discussion of SNF placement. Pt states understanding. SW to follow up with pt once he speaks to his about SNF placement. Plan: SNF pending acceptance Toya Mg SUPERVISOR COMPONENT ASSEMBLER, BIOMATERIALS ENGINEER
[2021-10-05 12:53] VITALS: BP 145/79; PULSE 62; RESP 20; TEMP 36.8; O2SAT 96
--- NOTE | 2021-10-05 13:49 | PN.HOSP_ITS ---
Subjective Subjective More alert, but still confused. Objective Data Objective Data Vital Signs: Vital Signs Temp Pulse Resp BP Pulse Ox 36.8 C 62 20 H 145/79 H 96 10/05/21 12:53 10/05/21 12:53 10/05/21 12:53 10/05/21 12:53 10/05/21 12:53 Oxygen Delivery Method Room Air Weight: 143.4 kg Body Mass Index (BMI) 45.9 Intake & Output: Intake and Output for Last 24 Hours 10/03/21 10/04/21 10/05/21 23:59 23:59 23:59 Intake Total 1050.00 / 1050.00 989.5 / 989.5 Output Total 250 / 250 425 / 425 Balance 800.00 / 800.00 564.5 / 564.5 Lab / Micro Data Result Diagrams: 10/05/21 05:13 10/05/21 05:13 Labs: Laboratory Results - last 24 hr 10/05/21 05:13: Sodium 140, Potassium 4.0, Chloride 112 H, Carbon Dioxide 24.0, Anion Gap 4 L, BUN 31 H, Creatinine 1.94 H, Estim Creat Clear Calc 35.94, Est GFR (MDRD) Af Amer 44 L, Est GFR (MDRD) Non-Af 37 L, BUN/Creatinine Ratio 16.0, Glucose 137 H, Calcium 8.5, Phosphorus 3.5, Magnesium 2.0, Total Bilirubin 0.60, AST 15, ALT 28, Alkaline Phosphatase 73, Total Protein 6.2 L, Albumin 3.1 L, Loly bulin 3.1, Albumin/Globulin Ratio 1.0 10/05/21 05:13: WBC 6.6, RBC 4.25 L, Hgb 12.7 L, Hct 36.9 L, MCV 86.8 D, MCH 29.9, MCHC 34.4 D, RDW Std Deviation 44.5 H, RDW Coeff of Leonie 14.0, Plt Count 144 L, MPV 10.7, Immature Gran % (Auto) 0.500, Neut % (Auto) 57.5, Lymph % (Auto) 30.7, [place] % (Auto) 7.9, Eos % (Auto) 3.2, Baso % (Auto) 0.2, Absolute Neuts (auto) 3.8, Absolute Lymphs (auto) 2.03, Nucleated RBC % 0 Micro: Microbiology 10/01/21 12:20 Urine, Clean Catch Urine Culture - Final Citrobacter freundii Pseudomonas aeroginosa 10/01/21 11:05 Blood Culture (Wb) - Anticubital Right Blood Culture - Preliminary No growth in 48 hours. 10/01/21 11:15 Blood Culture (Wb) - Anticubital Left Blood Culture - Preliminary No growth in 48 hours. 10/01/21 13:50 Nasal Secretion SARS-CoV-2 Antigen (Rapid) - Final Physical Exam Const Constitutional Narrative: oriented to place, does not know date, nor season (his answer was fall) Resp normal respiratory effort, no retractions, no use of accessory muscles and clear to auscultation bilaterally Cardio regular rate, regular rhythm, S1 normal heart sound and S2 normal heart sound GI normal to inspection, nondistended, normoactive bowel sounds, soft to palpation, non-tender and non-distended Extremity normal to inspection Assessment & Plan Assessment/Plan (1) Encephalopathy: (2) UTI (urinary tract infection): QUALIFIERS: Urinary tract infection type: acute cystitis Hematuria presence: without hematuria Qualified Code(s): N30.00 - Acute cystitis without hematuria PLAN: 1. Acute encephalopathy ongoing probably due to UTI but other possibilities includes medications interactions/polypharmacy or metabolic: Try to treat the underlying disorder. Monitor labs. Patient is on multiple immunosuppressant medications especially tacrolimus which can cause encepha lopathy but unfortunately tacrolimus serum level is a send out and he generally takes about 5 to 7 days for result to come back. ER physician talked to [facility] and they do not have bed but they accepted the patient and advised to call after 24 hours. 10/02: Discussed with the patient nursing staff. Patient is still confused and disoriented. CBC reviewed. Labs were reviewed. Potassium 3.51 dose of K?Dur 40 M EQ was given 10/03: Patient has DNI definition but still confused and cannot tell his name, place, age, month and the year. On 10/02 after discussion with she prefers going to rehab patient is not very ambulatory at home. 10/05: improved 2. Complicated UTI/cystitis: due to Citrobacter and pseudomonas Patient has dysuria. Started on ceftriaxone. Follow urine culture and blood culture. Monitor bladder scan for urinary retention. Lactic acid normal. No leukocytosis. No tachycardia. 10/03: urine culture shows gram-negative faheem lactose heat curer [phone] patient had dysuria therefore we will treat it. Continue ceftriaxone. Afebrile 10/04: change to LVQ 3. DANA improving 4. Hypertension: Blood pressure is high probably because of wrong cuff size as I saw cuff in the left forearm. Resume patient's blood pressure medications 10/02: Blood pressure is elevated 159/109. 10/03: BP is better controlled. 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 NEWELL elated cirrhosis and end-stage renal disease status post liver and kidney transplant: Normal potassium. Creatinine on baseline. [place] chief media officer is consulted to manage immunosuppression medications. 10/02: Discussed with the chief media officer. Continue suppressing medications. Discussed with the nursing staff. If the bed is available patient can be transferred to [facility] 10/03: [facility] was called but nonverbal. Patient's preferred to stay here. 6. Obstructive sleep apnea, chronic Degenerative joint arthritis and lower extremity edema: CPAP at night. Continue PT and OT. 7. History of non-STEMI/Chronic HFpEF: Patient had echo in June 2020 for work-up of his stroke. EF 60%. Mild concentric LVH. Stage I diastolic dysfunction. 5. VTE prophylaxis, high risk Due to morbid obesity.Lovenox 40 mils subcu twice daily. Bilateral SCD. Discontinue if platelet count drops less than 50,000 or hemoglobin less than 8 g%. 6. Disposition: to SNF pending approval. Living will/advanced directive/end of life care: Full code Charges/Coding Visit Charges Inpatient E&M: 16715 Subs Hosp L2
[2021-10-05] MEDS: Senna/Docusate Sodium 1 Tablet 2 TABLET PO ×2 (14:06→20:23)
[2021-10-05 15:00] VITALS: RESP 18
--- NOTE | 2021-10-05 15:37 | CASEMGMT ---
Social Work Note SW back in to speak with pt. Pt soundly sleeping, woke up when this worker said pt's name. Pt appeared somewhat more confused. SW specifically asked pt which snf he and his talked about and pt states [facility]. Pt then states but they have no beds. SW informed pt that [facility] TCU has no beds, this worker will need to check with [facility] to determine if they have beds or not. Pt agreeable to referral being sent to [facility]. DENISA placed a call to Sunitha at [facility] and updated her on referral. SW faxed referral to [facility]. Plan: SNF pending acceptance and pre-cert Toya Mg GREETING CARD EDITOR, NEWS REPORTER
[2021-10-05 20:05] VITALS: BP 142/87; PULSE 72; RESP 18; TEMP 36.6; O2SAT 93
[2021-10-05] MEDS: Doxazosin 4 MG Tablet 8 MG PO (20:23)
[2021-10-05] MEDS: Montelukast 10 MG Tablet PO (20:24)
[2021-10-05] MEDS: Atorvastatin Calcium 40 MG Tablet PO (20:24)
[2021-10-05] MEDS: Allopurinol 100 MG Tablet PO (20:24)
[2021-10-06 02:25] VITALS: BP 175/87; PULSE 64; RESP 18; TEMP 37.3; O2SAT 92
[2021-10-06 02:32] VITALS: BP 175/87; PULSE 64
[2021-10-06] MEDS: hydrALAZINE 20 MG/ML Vial 10 MG IV (02:32)
[2021-10-06 03:47] VITALS: BP 154/87
[2021-10-06] MEDS: oxyCODONE 5 MG Tablet PO ×2 (05:29→14:35)
[2021-10-06 06:51] LABS: ALB/GLOB Ratio 1.1 RATIO (0.9-2.4); AST(SGOT) 16 U/L (15-37); Alanine Aminotransfer ALT/SGPT 26 U/L (16-61); Albumin, Serum 3.1 g/dL (3.2-5.0); Alkaline Phosphatase 78 U/L (45-117); Anion Gap 6 (5-15); BUN 31 mg/dL (7-18); BUN/Creat Ratio 20.5 RATIO (10-20); Calcium,Total 8.6 mg/dL (8.5-10.1); Chloride 111 mmol/L (98-107); Creatinine, Serum 1.51 mg/dL (0.70-1.30); EST Glomerular Filtration Rate 49 mL/min (>60); Est Glom Filt Rate - Afr Amer 59 mL/min (>60); Estimated Creatinine Clearance 46.17 ml/min; Globulin 2.9 g/dL (2.2-4.2); Glucose 121 mg/dL (74-106); Potassium 3.8 mmol/L (3.5-5.1); Sodium Level 140 mmol/L (136-145)
[2021-10-06 07:54] VITALS: BP 145/90; PULSE 65; RESP 18; TEMP 36.8; O2SAT 94
[2021-10-06 08:10] VITALS: O2SAT 93
--- NOTE | 2021-10-06 09:15 | PCM.PN.REN ---
Subjective Subjective no new events Objective Data Objective Data Vital Signs: Vital Signs Temp Pulse Resp BP Pulse Ox 98.2 F 65 18 145/90 H 94 10/06/21 07:54 10/06/21 07:54 10/06/21 07:54 10/06/21 07:54 10/06/21 07:54 Oxygen Delivery Method Room Air Weight: 144.1 kg Body Mass Index (BMI) 45.9 Intake & Output: Intake and Output for Last 24 Hours 10/04/21 10/05/21 10/06/21 23:59 23:59 23:59 Intake Total 989.5 / 989.5 950 / 950 Output Total 425 / 425 425 / 425 250 / 250 Balance 564.5 / 564.5 525 / 525 -250 / -250 Lab / Micro Data Result Diagrams: 10/05/21 05:13 10/06/21 05:20 Labs: Laboratory Results - last 24 hr 10/06/21 05:20: Sodium 140, Potassium 3.8, Chloride 111 H, Carbon Dioxide 23.0, Anion Gap 6, BUN 31 H, Creatinine 1.51 H, Estim Creat Clear Calc 46.17, Est GFR (MDRD) Af Amer 59 L, Est GFR (MDRD) Non-Af 49 L, BUN/Creatinine Ratio 20.5 H, Glucose 121 H, Calcium 8.6, Total Bilirubin 0.60, AST 16, ALT 26, Alkaline Phosphatase 78, Total Protein 6.0 L, Albumin 3.1 L, Globulin 2.9, Albumin/Globulin Ratio 1.1 Micro: Microbiology 10/01/21 12:20 Urine, Clean Catch Urine Culture - Final Citrobacter freundii Pseudomonas aeroginosa 10/01/21 11:05 Blood Culture (Wb) - Anticubital Right Blood Culture - Preliminary No growth in 48 hours. 10/01/21 11:15 Blood Culture (Wb) - Anticubital Left Blood Culture - Preliminary No growth in 48 hours. 10/01/21 13:50 Nasal Secretion SARS-CoV-2 Antigen (Rapid) - Final Physical Exam Narrative Alert awake oriented x 3 no obvious distress no pallor no icterus no JVD s1s2 no murmurs lungs clear abdomen soft no organomegaly no edema no cyanosis Assessment & Plan Assessment/Plan (1) Chronic kidney disease, stage 3a: (2) Kidney transplant recipient: PLAN: Baseline creatinine is around 1.3. He is on 3 drug regimen for immunosuppression including tacrolimus, CellCept, prednisone. Clinically does not look septic. Continue all 3 medications for now. No graft site tenderness. urine culture with citrobacter and pseudomonas. abx as per primary. post void bladder scan is ok. Other than antibiotics, no other medication changes. No diarrhea. Tacrolimus level has been sent on and is still pending. Creatinine changes are likely hemodynamic changes. Continue home dose of medications for now. (3) Immunosuppression:
[2021-10-06] MEDS: Clopidogrel Bisulfate 75 MG Tablet PO (09:19)
[2021-10-06] MEDS: predniSONE 5 MG Tablet PO (09:19)
[2021-10-06] MEDS: NIFEdipine 90 MG Tablet PO (09:19)
[2021-10-06] MEDS: Mycophenolate Mofetil 250 MG Capsule 500 MG PO (09:20)
[2021-10-06] MEDS: Carvedilol 25 MG Tablet PO (09:20)
[2021-10-06] MEDS: Carvedilol 12.5 MG Tablet PO (09:20)
[2021-10-06] MEDS: Tacrolimus Anhydrous 1 MG Capsule PO (09:21)
[2021-10-06] MEDS: Tolterodine Tartrate 4 MG CAP.SA PO (09:21)
[2021-10-06] MEDS: Aspirin E.C. 81 MG Tablet PO (09:23)
[2021-10-06] MEDS: Nystatin Powder 15gm Bottle 1 APPLIC TOPICAL (09:23)
[2021-10-06] MEDS: Smz/Tmp Ds Tablet 1 TABLET PO (09:23)
[2021-10-06] MEDS: Menthol/Lanolin/Calamine/Znox 113 GM Tube 1 APPLIC TOPICAL (09:24)
[2021-10-06] MEDS: Pantoprazole Sodium 40 MG Tablet PO (09:26)
[2021-10-06] MEDS: levoFLOXacin IV 500 MG/100 ML BAG 100 MG IV (09:36)
--- NOTE | 2021-10-06 09:36 | CASEMGMT ---
Social Work Note SW placed a call to Sunitha at [facility] regarding referral. [facility] is able to accept pt today, will need another COVID test. Plan: [facility] skilled today Toya Mg MSW, DERMATOLOGIST
--- NOTE | 2021-10-06 11:58 | PCM.TXEXTCAR ---
Diet 10/01/21 15:07 Diet: Cardiac - Heart Healthy Food consistency:: Regular Liquid Consistency:: Regular/Thin Is pt able to select menu?: No Problem/Diagnosis (1) Chronic kidney disease, stage 3a: Status: Chronic (2) Kidney transplant recipient: Status: Acute (3) Immunosuppression: Status: Acute Allergies/Procedures Done in Hospital Allergies morphine Allergy (Intermediate, Verified 06/11/21 12:29) Unknown DID NOT WORK, GOT WORSE metformin Allergy (Verified 06/11/21 12:29) Other pregabalin [From Lyrica] Allergy (Verified 06/11/21 12:29) Other TREMORS Type of Care/Length of Stay Estimated LOS: Convalescent Care Less Than 30 days Type of Care Needed: Skilled Rehab Potential: Fair Prognosis: Fair Additional Orders/Day of Discharge Day of Discharge: 10/06/21 Dietary and Speech Recommendations Dietitian Recommendations/Changes: continue cardiac diet as tolerated; consider adding 120mL ensure enlive w/ medpass if PO intake continues to be poor Discharge Plan Admission Admit Date/Time: 10/01/21 14:27 Primary Reason for Your Visit: encephalopathy, UTI Attending Provider: Robert Ortega Primary Care Provider: Shanelle Luz Consulting Providers: Helen Mcadams Discharge Orders/Prescriptions Prescriptions: New allopurinol 100 mg Tablet 100 mg PO QHS Qty: 0 RF: 0 oxycodone 5 mg Tablet 5 mg PO TID PRN (Reason: pain) 3 Days Qty: 12 RF: 0 levofloxacin 500 mg tablet 500 mg PO Q48H Qty: 2 RF: 0 Continued pantoprazole [Protonix] 40 mg tablet,delayed release (DR/EC) 40 mg PO DAILY RF: 0 aspirin [Adult Low Dose Aspirin] 81 mg tablet,delayed release (DR/EC) 81 mg PO DAILY RF: 0 mycophenolate mofetil [CellCept] 500 mg tablet 500 mg PO BID RF: 0 zafirlukast [Accolate] 20 mg tablet 20 mg PO Q12H RF: 0 tacrolimus 1 mg capsule,extended release 24hr 1 mg PO BID RF: 0 oxybutynin chloride 10 MG tablet extended release 24hr 10 mg PO DAILY RF: 0 prednisone 5 MG tablet 5 mg PO DAILY RF: 0 sulfamethoxazole-trimethoprim 400-80 mg tablet 2 tab PO MOWEFR RF: 0 atorvastatin 40 mg tablet 40 mg PO QHS RF: 0 carvedilol [Coreg] 25 mg tablet 25 mg PO BID RF: 0 carvedilol [Coreg] 12.5 mg tablet 12.5 mg PO BID RF: 0 clopidogrel 75 mg tablet 75 mg PO DAILY RF: 0 nifedipine [Procardia XL] 90 mg tablet extended release 24hr 90 mg PO DAILY RF: 0 doxazosin 8 mg tablet 8 mg PO QHS Qty: 90 RF: 3 Discontinued allopurinol 300 mg tablet 300 mg PO QHS RF: 0 losartan 50 mg tablet 50 mg PO BID RF: 0 oxycodone 5 mg tablet 5 mg PO TID RF: 0 Referrals / Follow Up: Helen Mcadams MD [STAFF PHYSICIAN] - Within 1 Month Shanelle Luz DO [Primary Care Provider] - Within 2 Weeks Disposition Disposition (needs filled in before D/C Order can be placed): Residential Facility
--- NOTE | 2021-10-06 12:09 | PCM.DC.SUM ---
Providers Date of Admission: 10/01/21 Primary Care Physician: Dr. Shanelle Luz, Consultations 10/01/21 15:07 Consult: Nephrology Routine Consulting Provider: Helen Mcadams Reason for Consult: CKD, ESLD S/P liver and kidney transplant EMERGENT Consult: No MD Notified: Yes Date Notified: 10/01/21 Time Notified: 14:34 Method of Notification: Text Reason For Visit: ENCEPHALOPATHY Diagnosis Discharge Diagnosis (1) Chronic kidney disease, stage 3a: Status: Chronic Code(s): N18.31 - Chronic kidney disease, stage 3a (2) Kidney transplant recipient: Status: Acute Code(s): Z94.0 - Kidney transplant status (3) Immunosuppression: Status: Acute Code(s): D84.9 - Immunodeficiency, unspecified Medications at Discharge Home Medications pantoprazole 40 mg tablet,delayed release 40 mg PO DAILY 12/20/19 oxybutynin chloride 10 mg PO DAILY 03/29/20 prednisone 5 mg PO DAILY 03/29/20 aspirin 81 mg tablet,delayed release 81 mg PO DAILY 04/15/20 mycophenolate mofetil 500 mg tablet 500 mg PO BID 04/15/20 tacrolimus 1 mg capsule,extended release 24 hr 1 mg PO BID cap 04/15/20 zafirlukast 20 mg tablet 20 mg PO Q12H 04/15/20 sulfamethoxazole 400 mg-trimethoprim 80 mg tablet 2 tab PO MOWEFR tab 07/17/20 doxazosin 8 mg tablet 8 mg PO QHS #90 tab 06/30/21 atorvastatin 40 mg PO QHS 10/01/21 carvedilol [Coreg] 12.5 mg PO BID 10/01/21 carvedilol [Coreg] 25 mg PO BID 10/01/21 clopidogrel 75 mg PO DAILY 10/01/21 nifedipine [Procardia XL] 90 mg PO DAILY 10/01/21 allopurinol 100 mg PO QHS #0 tab 10/06/21 levofloxacin 500 mg PO Q48H #2 tab 10/06/21 oxycodone 5 mg PO TID PRN 3 Days #12 tab 10/06/21 Hospital Course Operations None Procedures None Summary of Care Provided Minutes Spent on Discharge: 35 Hospital Course: This 70-year-old male presents with confusion. Patient was found to have a UTI due to Citrobacter as well as Pseudomonas. Patient treated with the levofloxacin and overall is improved. Patient is weak and will be discharged to residential facility in stable condition. He did have some acute kidney injury but that that did improve and was seen by nephrology. Physical Exam Const alert Cardio regular rate, regular rhythm, S1 normal heart sound and S2 normal heart sound GI normal to inspection, nondistended, normoactive bowel sounds, soft to palpation and non-tender Extremity normal to inspection and full ROM Neuro Sensorium / Orientation: awake and alert Weight / BMI Weight Weight: 144.1 kg Body Mass Index (BMI) 45.9 ABG / Lab / Microbiology Data Result Diagrams: 10/05/21 05:13 10/06/21 05:20 Laboratory: Laboratory Results - last 24 hr 10/06/21 05:20: Sodium 140, Potassium 3.8, Chloride 111 H, Carbon Dioxide 23.0, Anion Gap 6, BUN 31 H, Creatinine 1.51 H, Estim Creat Clear Calc 46.17, Est GFR (MDRD) Af Amer 59 L, Est GFR (MDRD) Non-Af 49 L, BUN/Creatinine Ratio 20.5 H, Glucose 121 H, Calcium 8.6, Total Bilirubin 0.60, AST 16, ALT 26, Alkaline Phosphatase 78, Total Protein 6.0 L, Albumin 3.1 L, Globulin 2.9, Albumin/Globulin Ratio 1.1 Microbiology: Microbiology 10/01/21 12:20 Urine, Clean Catch Urine Culture - Final Citrobacter freundii Pseudomonas aeroginosa 10/01/21 11:05 Blood Culture (Wb) - Anticubital Right Blood Culture - Preliminary No growth in 48 hours. 10/01/21 11:15 Blood Culture (Wb) - Anticubital Left Blood Culture - Preliminary No growth in 48 hours. 10/01/21 13:50 Nasal Secretion SARS-CoV-2 Antigen (Rapid) - Final D/C Instructions Discharge Diet: Renal Diet Meaningful Use Info Meaningful Use Diagnoses (Choose all that apply): None applicable Discharge Plan Admission Admit Date/Time: 10/01/21 14:27 Primary Reason for Your Visit: encephalopathy, UTI Attending Provider: Robert Ortega Primary Care Provider: Shanelle Luz Consulting Providers: Helen Mcadams Discharge Orders/Prescriptions Prescriptions: New allopurinol 100 mg Tablet 100 mg PO QHS Qty: 0 RF: 0 oxycodone 5 mg Tablet 5 mg PO TID PRN (Reason: pain) 3 Days Qty: 12 RF: 0 levofloxacin 500 mg tablet 500 mg PO Q48H Qty: 2 RF: 0 Continued pantoprazole [Protonix] 40 mg tablet,delayed release (DR/EC) 40 mg PO DAILY RF: 0 aspirin [Adult Low Dose Aspirin] 81 mg tablet,delayed release (DR/EC) 81 mg PO DAILY RF: 0 mycophenolate mofetil [CellCept] 500 mg tablet 500 mg PO BID RF: 0 zafirlukast [Accolate] 20 mg tablet 20 mg PO Q12H RF: 0 tacrolimus 1 mg capsule,extended release 24hr 1 mg PO BID RF: 0 oxybutynin chloride 10 MG tablet extended release 24hr 10 mg PO DAILY RF: 0 prednisone 5 MG tablet 5 mg PO DAILY RF: 0 sulfamethoxazole-trimethoprim 400-80 mg tablet 2 tab PO MOWEFR RF: 0 atorvastatin 40 mg tablet 40 mg PO QHS RF: 0 carvedilol [Coreg] 25 mg tablet 25 mg PO BID RF: 0 carvedilol [Coreg] 12.5 mg tablet 12.5 mg PO BID RF: 0 clopidogrel 75 mg tablet 75 mg PO DAILY RF: 0 nifedipine [Procardia XL] 90 mg tablet extended release 24hr 90 mg PO DAILY RF: 0 doxazosin 8 mg tablet 8 mg PO QHS Qty: 90 RF: 3 Discontinued allopurinol 300 mg tablet 300 mg PO QHS RF: 0 losartan 50 mg tablet 50 mg PO BID RF: 0 oxycodone 5 mg tablet 5 mg PO TID RF: 0 Referrals / Follow Up: Helen Mcadams MD [STAFF PHYSICIAN] - Within 1 Month Shanelle Luz DO [Primary Care Provider] - Within 2 Weeks Disposition Disposition (needs filled in before D/C Order can be placed): [facility] Facility Charges/Coding Visit Charges Inpatient E&M: 40524 Disch Hosp
[2021-10-06 14:49] VITALS: BP 145/84; PULSE 64; RESP 18; TEMP 36.7; O2SAT 96
--- NOTE | 2021-10-06 15:52 | CASEMGMT ---
Social Work Note DENISA faxed completed discharge paperwork to [facility] including transfer to extended care facility, signed medication list, any scripts, COVID test/Tool, and Convalescent 7000. Original in SNF folder and copy on pt's chart. DENISA completed convalescent 7000 in [facility]. Original in SNF Folder and copy on pt's chart. DENISA spoke with RN, pt to transport via wheelchair van. DENISA accessed trip assist and arranged transportation via wide wheelchair van for 4:30pm. Transportation form completed and placed on SNF folder and copy on pt's chart. DENISA updated RN on transportation time. DENISA placed a call to Sunitha at [facility] and left message updating her on transportation time. DENISA placed a call to pt's Serina and updated her on acceptance to [facility], discharge to [facility] and transportation time. Serina states understanding. SW in to speak with pt. SW updated pt on discharge to [facility] and transportation time. Pt states understanding. Plan: [facility] skilled today with Physician's transporting pt via wheelchair van at 4:30pm Toya Mg MSW, COILED TUBING OPERATOR
--- NOTE | 2021-10-06 15:58 | NURSING ---
Called report to nurse Briseno at [facility] [phone].
[2021-10-09 17:18] LABS: Tacrolimus (FK506) 6.4 ng/mL (2.0-20.0)
== END 2021-10-06 16:59 | disposition skilled nursing facility (03) | DRG 689 ==
LOC: ED 14:11 → MS3 15:42
PROVIDERS: Admitting Provider Internal Medicine; Emergency Provider Emergency Medicine; PCP Internal Medicine
DX: N30.01 Acute cystitis with hematuria (principal); N18.6 End stage renal disease; G93.40 Encephalopathy, unspecified; D84.9 Immunodeficiency, unspecified; N17.9 Acute kidney failure, unspecified; I13.2 Hypertensive heart and chronic kidney disease with heart failure and with stage 5 chronic kidney disease, or end stage renal disease; I50.32 Chronic diastolic (congestive) heart failure; Z68.42 Body mass index [BMI] 45.0-49.9, adult; Z94.4 Liver transplant status; Z94.0 Kidney transplant status; K75.81 Nonalcoholic steatohepatitis (NASH); E66.01 Morbid (severe) obesity due to excess calories; N18.31 Chronic kidney disease, stage 3a; M19.90 Unspecified osteoarthritis, unspecified site; G47.33 Obstructive sleep apnea (adult) (pediatric); B96.5 Pseudomonas (aeruginosa) (mallei) (pseudomallei) as the cause of diseases classified elsewhere; I25.2 Old myocardial infarction; Z51.5 Encounter for palliative care; G89.4 Chronic pain syndrome; Z79.02 Long term (current) use of antithrombotics/antiplatelets; Z79.82 Long term (current) use of aspirin; Z86.73 Personal history of transient ischemic attack (TIA), and cerebral infarction without residual deficits
CPT/HCPCS: 36415; 70450; 71045; 80053; 80197; 81001; 82140; 82550; 83605; 83735; 84100; 85025; 85610; 85730; 87040; 87077; 87086; 87088; 87186; 87426; 93005; 97110; 97162; 97166; 97530; 97535; 99251; 99285; J7030; J7050; A4216; G0463; J0696

== ENCOUNTER → 2021-10-09 | Outpatient (REF) | payer SELFPAY ==
[2020-07-29 07:35] VITALS: BMI 46.7
[2021-10-09 08:03] LABS: Absolute Lymphocyte Count 2.25 X10^3/uL (0.83-4.51); Absolute Neutrophil Count 3.6 X10^3/uL (2.0-7.7); Basophil# 0.02 X10^3/uL; Basophil% 0.3 % (0-1); Eosinophil# 0.24 X10^3/uL; Eosinophils% 3.6 % (0-5); Hematocrit 37.5 % (40-54); Hemoglobin 12.4 g/dL (13.0-16.5); Lymphocyte # 2.25 X10^3/ul (0.83-4.51); Lymphocyte % 33.5 % (19-41); Mean Corp Hgb Conc 33.1 g/dL (32-36); Mean Corpuscular Hgb 29.5 pg (27.0-32.0); Mean Corpuscular Volume 89.1 fL (80-94); Mean Platelet Vol. 10.7 fl (6.2-12.0); Monocyte# 0.58 X10^3/uL; Monocyte% 8.6 % (0-10); NRBC Flagged by Analyzer 0 % (0-5); Neutrophil % 53.7 % (47-70); Platelet Count 149 K/mm3 (150-450); RBC Distribution Width CV 13.7 % (11.6-14.6); Red Blood Count 4.21 M/mm3 (4.6-6.2); White Blood Count 6.7 K/mm3 (4.4-11.0)
[2021-10-09 08:18] LABS: Anion Gap 5 (5-15); BUN 23 mg/dL (7-18); BUN/Creat Ratio 15.9 RATIO (10-20); Calcium,Total 8.5 mg/dL (8.5-10.1); Chloride 112 mmol/L (98-107); Cholesterol 124 mg/dL (200); Creatinine, Serum 1.45 mg/dL (0.70-1.30); EST Glomerular Filtration Rate 51 mL/min (>60); Est Glom Filt Rate - Afr Amer 62 mL/min (>60); Glucose 106 mg/dL (74-106); High Density Lipoprotein 28 mg/dL; Potassium 3.5 mmol/L (3.5-5.1); Sodium Level 143 mmol/L (136-145); Triglycerides 110 mg/dL; Very Low Density Lipoprotein 22 mg/dL (5-40)
== END | disposition home or self-care (01) ==
LOC: OLS.SW500 05:00
PROVIDERS: PCP Internal Medicine; Visit Provider Internal Medicine
DX: Z94.0 Kidney transplant status (principal)
CPT/HCPCS: 36415; 80048; 80061; 80197; 85025

== ENCOUNTER 2021-10-12 05:00 | Outpatient (REF) | payer SELFPAY ==
[2020-07-29 07:35] VITALS: BMI 46.7
[2021-10-12 08:35] LABS: Absolute Lymphocyte Count 2.15 X10^3/uL (0.83-4.51); Absolute Neutrophil Count 2.8 X10^3/uL (2.0-7.7); Basophil# 0.01 X10^3/uL; Basophil% 0.2 % (0-1); Eosinophil# 0.23 X10^3/uL; Eosinophils% 4.1 % (0-5); Hematocrit 38.7 % (40-54); Lymphocyte # 2.15 X10^3/ul (0.83-4.51); Lymphocyte % 38.3 % (19-41); Mean Corp Hgb Conc 33.6 g/dL (32-36); Mean Corpuscular Volume 89.2 fL (80-94); Mean Platelet Vol. 11.2 fl (6.2-12.0); Monocyte# 0.43 X10^3/uL; Monocyte% 7.7 % (0-10); NRBC Flagged by Analyzer 0 % (0-5); Neutrophil # 2.78 X10^3/uL (2.7-7.7); Neutrophil % 49.3 % (47-70); Platelet Count 169 K/mm3 (150-450); RBC Distribution Width CV 13.8 % (11.6-14.6); RBC Distribution Width SD 44.9 fl (35.1-43.9); Red Blood Count 4.34 M/mm3 (4.6-6.2); White Blood Count 5.6 K/mm3 (4.4-11.0)
[2021-10-12 08:48] LABS: Anion Gap 7 (5-15); BUN 22 mg/dL (7-18); BUN/Creat Ratio 15.8 RATIO (10-20); Calcium,Total 8.6 mg/dL (8.5-10.1); Chloride 109 mmol/L (98-107); Creatinine, Serum 1.39 mg/dL (0.70-1.30); EST Glomerular Filtration Rate 54 mL/min (>60); Est Glom Filt Rate - Afr Amer 65 mL/min (>60); Glucose 107 mg/dL (74-106); Potassium 3.9 mmol/L (3.5-5.1); Sodium Level 143 mmol/L (136-145)
[2021-10-13 13:45] LABS: MG Sendout 1.9 mg/dL (1.6-2.3)
== END 2021-10-12 23:59 | disposition home or self-care (01) ==
LOC: OLS.SW500 05:00
PROVIDERS: PCP Internal Medicine; Visit Provider Internal Medicine
DX: Z00.00 Encounter for general adult medical examination without abnormal findings (principal)
CPT/HCPCS: 36415; 80048; 83735; 85025

== ENCOUNTER → 2021-10-19 | Outpatient (REF) | payer SELFPAY ==
[2020-07-29 07:35] VITALS: BMI 46.7
[2021-10-19 09:00] LABS: Absolute Lymphocyte Count 2.38 X10^3/uL (0.83-4.51); Absolute Neutrophil Count 4.1 X10^3/uL (2.0-7.7); Basophil# 0.02 X10^3/uL; Basophil% 0.3 % (0-1); Eosinophil# 0.21 X10^3/uL; Eosinophils% 2.9 % (0-5); Hematocrit 41.2 % (40-54); Hemoglobin 13.9 g/dL (13.0-16.5); Lymphocyte # 2.38 X10^3/ul (0.83-4.51); Lymphocyte % 32.9 % (19-41); Mean Corp Hgb Conc 33.7 g/dL (32-36); Mean Platelet Vol. 10.2 fl (6.2-12.0); Monocyte# 0.52 X10^3/uL; Monocyte% 7.2 % (0-10); NRBC Flagged by Analyzer 0 % (0-5); Neutrophil # 4.06 X10^3/uL (2.7-7.7); Neutrophil % 56.1 % (47-70); Platelet Count 167 K/mm3 (150-450); RBC Distribution Width CV 13.7 % (11.6-14.6); RBC Distribution Width SD 44.5 fl (35.1-43.9); Red Blood Count 4.63 M/mm3 (4.6-6.2); White Blood Count 7.2 K/mm3 (4.4-11.0)
[2021-10-19 09:14] LABS: Anion Gap 4 (5-15); BUN 18 mg/dL (7-18); Calcium,Total 8.9 mg/dL (8.5-10.1); Chloride 111 mmol/L (98-107); EST Glomerular Filtration Rate 64 mL/min (>60); Est Glom Filt Rate - Afr Amer 77 mL/min (>60); Glucose 112 mg/dL (74-106); Potassium 3.8 mmol/L (3.5-5.1); Sodium Level 142 mmol/L (136-145)
== END | disposition home or self-care (01) ==
LOC: OLS.SW500 05:00
PROVIDERS: PCP Internal Medicine; Visit Provider Internal Medicine
DX: I10 Essential (primary) hypertension (principal)
CPT/HCPCS: 36415; 80048; 83735; 85025

== ENCOUNTER 2022-08-12 19:00 | Emergency (ER) | payer MEDICARE, OTHER, SELFPAY ==
[2020-07-29 07:35] VITALS: BMI 46.7
[2022-08-12 19:02] VITALS: BP 138/83; PULSE 78; RESP 18; TEMP 36.6; O2SAT 94; BMI 45.9
--- NOTE | 2022-08-12 19:06 | ED.RN ---
DR. ABEL AT TRIAGE TO EVALUATE. NO STROKE TEAM AT THIS TIME.
--- NOTE | 2022-08-12 19:27 | CT_ITS ---
STUDY: CT BRAIN WITHOUT CONTRAST REASON FOR EXAM: Male, 71 years old. facial droop RADIATION DOSAGE (If Supplied By Facility): CTDIvol = ( 44.99 ) mGy, DLP = ( 812.98 ) mGycm TECHNIQUE: Transaxial CT imaging of the brain was performed without administration of intravenous contrast material. Individualized dose optimization techniques were used for this CT. COMPARISON: 10/01/2021 FINDINGS: Normal soft tissue structures. Normal calvarium. There is moderate cerebral atrophy with widening of the extra-axial spaces and ventricular dilatation. There are areas of decreased attenuation within the white matter tracts of the supratentorial brain, consistent with microvascular disease changes. Normal basal ganglia and thalami. Normal brainstem. Normal cerebellum. There is no intracranial hemorrhage. There are no findings of an acute ischemic infarction. Mucosal thickening of the left sphenoid sinus consistent with chronic sinusitis. CT/Brain/Head without Contrast IMPRESSION: Chronic involutional changes of the brain. Electronically Signed: Wil Alicea MD at 20:49 EST ,
--- NOTE | 2022-08-12 19:28 | EX.ED.DYSGE1 ---
HPI History of Present Illness Chief Complaint: Neuro S/Sx Detail of Chief Complaint: Left facial droop Informant: patient Onset/Context/Timing Onset: Hours Context: Gradual Onset Current Severity: Moderate Maximum Severity: Moderate Narrative Narrative: Patient presents with numbness and left facial droop. Patient states symptoms started several hours ago. I was asked to see the patient in triage and it was noted that he was not able to raise his left eyebrow or wrinkle his left forehead. 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 Patient does report a history of stroke, TIA, and Dooley's palsy. He denies any other neuro symptoms. He was able to eat and drink dinner without difficulty. [facility] Medical History Anemia Asthma Atherosclerotic heart disease of [place] coronary artery without angina pectoris Chronic kidney disease, stage 3a Chronic nonalcoholic liver disease Chronic pain syndrome Cirrhosis of liver End stage renal failure on dialysis Essential (primary) hypertension GERD (gastroesophageal reflux disease) History of CVA (cerebrovascular accident) (06/2021) History of non-ST elevation myocardial infarction (NSTEMI) (03/30/20) Hydronephrosis Immunosuppression Left renal artery stenosis Morbid obesity Obstructive sleep apnea Osteoarthritis Renal calculi Segmental and somatic dysfunction of lumbar region Superficial thrombophlebitis TIA (transient ischemic attack) Home Medications pantoprazole 40 mg tablet,delayed release (Protonix) 40 mg PO DAILY gerd 12/20/19 [History Last Taken 10/01/21] oxybutynin chloride 10 mg tablet,extended release 24 hr 10 mg PO DAILY bladder 03/29/20 [History Last Taken 10/01/21] prednisone 5 mg tablet 5 mg PO DAILY anti rejection 03/29/20 [History Last Taken 10/01/21] aspirin 81 mg tablet,delayed release (Adult Low Dose Aspirin) 81 mg PO DAILY HEART HEALTH 04/15/20 [History Last Taken 10/01/21] mycophenolate mofetil 500 mg tablet (CellCept) 500 mg PO BID TRANSPLANT 04/15/20 [History Last Taken 10/01/21] tacrolimus 1 mg capsule,extended release 24 hr 1 mg PO BID liver transplant 04/15/20 [History Last Taken 10/01/21] zafirlukast 20 mg tablet (Accolate) 20 mg PO Q12H BREATHING 04/15/20 [History Last Taken 10/01/21] sulfamethoxazole 400 mg-trimethoprim 80 mg tablet 2 tab PO MOWEFR preventative atb 07/17/20 [History Last Taken 10/01/21] doxazosin 8 mg tablet 8 mg PO QHS bp #90 tabs 06/30/21 [Rx Last Taken 09/30/21] carvedilol 25 mg tablet (Coreg) 25 mg PO BID HEART 10/01/21 [History Last Taken 10/01/21] nifedipine 90 mg tablet,extended release 24 hr (Procardia XL) 90 mg PO DAILY HEART 10/01/21 [History Last Taken 10/01/21] allopurinol 100 mg tablet 100 mg PO QHS #0 tabs 10/06/21 [Rx Last Taken Unknown] oxycodone 5 mg tablet 5 mg PO TID PRN pain 3 days #12 tabs 10/06/21 [Rx Last Taken Unknown] clopidogrel 75 mg tablet See Rx Instructions .Route .COMPLEX #90 TABLETS 12/21/21 [Rx Last Taken Unknown] atorvastatin 40 mg tablet 40 mg PO QHS CHOLESTEROL #90 tabs 01/26/22 [Rx Last Taken Unknown] carvedilol 12.5 mg tablet See Rx Instructions .Route .COMPLEX #180 TABLETS 08/04/22 [Rx Last Taken Unknown] acyclovir 400 mg tablet 1 tab PO 5X/DAY #50 tabs 08/12/22 [Rx Last Taken Unknown] prednisone 20 mg tablet 60 mg PO DAILY #12 tabs 08/12/22 [Rx Last Taken Unknown] Allergy/AdvReac Type Severity Reaction Status Date / Time morphine Allergy Intermediate Unknown Verified 08/12/22 19:02 metformin Allergy Other Verified 08/12/22 19:02 pregabalin [From Lyrica] Allergy Other Verified 08/12/22 19:02 Family History Other PGM diabetes Surgical History History of knee replacement History of left heart catheterization (04/03/20) History of stent insertion of renal artery (2014) Kidney transplant recipient (07/13/12) Kidney transplant recipient Liver transplant recipient (07/13/12) Social History household members: spouse Smoking Status: Never smoker second hand exposure: No alcohol intake: never substance use type: does not use caffeine: Yes frequency: 3-4 times per week ROS ROS ED Constitutional Constitutional ED: Denies chills or fever(s) Eyes Eyes: Denies change in vision or discharge from eye(s) ENT ENT ED: Denies discharge from eye(s), rhinorrhea or sore throat Cardiovascular Cardiovascular: Denies chest pain or palpitations Respiratory/Chest Respiratory/Chest: Denies cough or dyspnea Gastrointestinal Gastrointestinal: Denies abdominal pain, nausea or vomiting Genitourinary Genitourinary ED: Denies dysuria Musculoskeletal Musculoskeletal: Denies back pain or extremity pain Integumentary Denies Abrasions or rash Neurologic Neurologic: Reports weakness and other Details: Left facial droop with numbness. ; Denies headache(s) Psychiatric Psychiatric: Denies anxiety or depression Endocrine Endocrinology: Denies polydipsia or polyuria Allergic/Immunologic Allergic/Immunologic ED: Denies lip swelling or urticaria EXAM Physical Exam Const Vital Signs: 08/12/22 19:02 Temperature 97.8 F Temperature Source Temporal Pulse Rate 78 Respiratory Rate 18 Blood Pressure 138/83 H Blood Pressure Mean 101 Pulse Ox 94 Oxygen Delivery Method Room Air Positive well nourished and well developed General Appearance ED: well developed HEENT Reports normocephalic and head/scalp atraumatic Eyes PERRL and EOMs intact bilaterally Neck supple Chest Wall inspection of chest normal and palpation of chest normal Resp normal respiratory effort and clear to auscultation bilaterally Cardio regular rate and regular rhythm GI normal to inspection, nondistended, normoactive bowel sounds Palpation: soft Extremity normal to inspection Neuro oriented x3 Neuro Narrative: Left facial droop noted including forehead, maxilla, lip. Patient reports decree sensation to light touch over the maxilla and left side of his tongue. He is unable to tightly close his left eye. 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 Normal strength and sensation are noted in the extremities. Sensorium / Orientation: alert Psych mental status grossly normal Skin no rashes or lesions noted MDM MDM MDM Narrative Medical decision making narrative: Lab work obtained and patient sent for CT scan of the head. Lab Data Attestation: I reviewed the patient's lab results. Labs: Laboratory Results - last 24 hr 08/12/22 08/12/22 19:33 19:33 WBC 7.9 RBC 5.09 Hgb 14.8 Hct 45.5 MCV 89.4 MCH 29.1 MCHC 32.5 RDW Std Deviation 43.6 RDW Coeff of Leonie 13.3 Plt Count 183 MPV 9.9 Immature Gran % (Auto) 0.500 Neut % (Auto) 57.4 Lymph % (Auto) 30.7 [place] % (Auto) 8.1 Eos % (Auto) 3.0 Baso % (Auto) 0.3 Absolute Neuts (auto) 4.5 Absolute Lymphs (auto) 2.43 Nucleated RBC % 0 Sodium 141 Potassium 3.7 Chloride 107 Carbon Dioxide 28.0 Anion Gap 6 BUN 23 H Creatinine 1.43 H Estim Creat Clear Calc 49.63 Est GFR (MDRD) Af Amer 63 Est GFR (MDRD) Non-Af 52 L BUN/Creatinine Ratio 16.1 Glucose 166 H Calcium 9.2 Radiography Diagnostic Testing: Clinical Impression(s) from Imaging Studies Brain CT 08/12/22 19:27 IMPRESSION: Chronic involutional changes of the brain. Electronically Signed: Wil Alicea MD at 20:49 EST , Treatment and Re-Evaluation Narrative: CBC is unremarkable. Chemistry studies reveal BUN of 23 and creatinine 1.43. This is only slightly worsened when compared to his most recent labs, but creatinine has been higher than this in the past. Glucose is 166. CT scan of the head reveals no acute findings. I discussed with the patient I do believe his symptoms are secondary to Dooley's palsy. We discussed taping his left eye closed at night so does not dry out. He is written prednisone and acyclovir. Return instructions given. Discharge Plan Triage Chief Complaint: Neuro S/Sx ED Provider: Gia Velasquez Dx/Rx/DC Orders Clinical Impression: Dooley's palsy Instructions: ED Dooley's Palsy Prescriptions: New prednisone 20 mg tablet 60 mg PO DAILY Qty: 12 0RF acyclovir 400 mg tablet 1 tab PO 5X/DAY Qty: 50 0RF No Action pantoprazole [Protonix] 40 mg tablet,delayed release (DR/EC) 40 mg PO DAILY aspirin [Adult Low Dose Aspirin] 81 mg tablet,delayed release (DR/EC) 81 mg PO DAILY mycophenolate mofetil [CellCept] 500 mg tablet 500 mg PO BID zafirlukast [Accolate] 20 mg tablet 20 mg PO Q12H Rx Instructions: administer 1 hour before or 2 hours after food or meals tacrolimus 1 mg capsule,extended release 24hr 1 mg PO BID Label Comments: REJECTION MED oxybutynin chloride 10 MG tablet extended release 24hr 10 mg PO DAILY prednisone 5 MG tablet 5 mg PO DAILY sulfamethoxazole-trimethoprim 400-80 mg tablet 2 tab PO Rx Instructions: take one tablet po every monday, monday, monday carvedilol [Coreg] 25 mg tablet 25 mg PO BID Rx Instructions: must administer with a meal/food total 37.5 takes with 12.5 nifedipine [Procardia XL] 90 mg tablet extended release 24hr 90 mg PO DAILY allopurinol 100 mg Tablet 100 mg PO QHS Qty: 0 0RF oxycodone 5 mg Tablet 5 mg PO TID PRN (Reason: pain) 3 Days Qty: 12 0RF doxazosin 8 mg tablet 8 mg PO QHS Qty: 90 3RF clopidogrel 75 mg tablet See Rx Instructions .ROUTE .COMPLEX Qty: 90 3RF Dose Instruction: take 1 tablet by mouth once daily Rx Instructions: take 1 tablet by mouth once daily atorvastatin 40 mg tablet 40 mg PO QHS Qty: 90 3RF carvedilol 12.5 mg tablet See Rx Instructions .ROUTE .COMPLEX Qty: 180 3RF Dose Instruction: take 1 tablet by mouth twice a day WITH 25 MG TABLET TO TOTAL 37.5 MG TWICE DAILY Rx Instructions: take 1 tablet by mouth twice a day WITH 25 MG TABLET TO TOTAL 37.5 MG TWICE DAILY Primary Care Provider: Shanelle Luz Referrals: Shanelle Luz DO [Primary Care Provider] - 1 Week Disposition Disposition: Home, Self Care Discharge Date/Time: 08/12/22 22:00
[2022-08-12 19:43] VITALS: BMI 46.1
[2022-08-12 19:47] LABS: Absolute Lymphocyte Count 2.43 X10^3/uL (0.83-4.51); Absolute Neutrophil Count 4.5 X10^3/uL (2.0-7.7); Basophil# 0.02 X10^3/uL; Basophil% 0.3 % (0-1); Eosinophil# 0.24 X10^3/uL; Hematocrit 45.5 % (40-54); Hemoglobin 14.8 g/dL (13.0-16.5); Lymphocyte # 2.43 X10^3/ul (0.83-4.51); Lymphocyte % 30.7 % (19-41); Mean Corp Hgb Conc 32.5 g/dL (32-36); Mean Corpuscular Hgb 29.1 pg (27.0-32.0); Mean Corpuscular Volume 89.4 fL (80-94); Mean Platelet Vol. 9.9 fl (6.2-12.0); Monocyte# 0.64 X10^3/uL; Monocyte% 8.1 % (0-10); NRBC Flagged by Analyzer 0 % (0-5); Neutrophil # 4.54 X10^3/uL (2.7-7.7); Neutrophil % 57.4 % (47-70); Platelet Count 183 K/mm3 (150-450); RBC Distribution Width CV 13.3 % (11.6-14.6); RBC Distribution Width SD 43.6 fl (35.1-43.9); Red Blood Count 5.09 M/mm3 (4.6-6.2); White Blood Count 7.9 K/mm3 (4.4-11.0)
[2022-08-12 20:05] LABS: Anion Gap 6 (5-15); BUN 23 mg/dL (7-18); BUN/Creat Ratio 16.1 RATIO (10-20); Calcium,Total 9.2 mg/dL (8.5-10.1); Chloride 107 mmol/L (98-107); Creatinine, Serum 1.43 mg/dL (0.70-1.30); EST Glomerular Filtration Rate 52 mL/min (>60); Est Glom Filt Rate - Afr Amer 63 mL/min (>60); Estimated Creatinine Clearance 49.63 ml/min; Glucose 166 mg/dL (74-106); Potassium 3.7 mmol/L (3.5-5.1); Sodium Level 141 mmol/L (136-145)
[2022-08-12] MEDS: Acyclovir 200 MG Capsule 400 MG PO (21:54)
[2022-08-12] MEDS: predniSONE 20 MG Tablet 60 MG PO (21:54)
== END 2022-08-12 22:00 | disposition home or self-care (01) ==
PROVIDERS: Emergency Provider Emergency Medicine; PCP Internal Medicine; Visit Provider Emergency Medicine
DX: G51.0 Bell's palsy (principal); Z99.2 Dependence on renal dialysis; N18.6 End stage renal disease; I12.0 Hypertensive chronic kidney disease with stage 5 chronic kidney disease or end stage renal disease; Z86.73 Personal history of transient ischemic attack (TIA), and cerebral infarction without residual deficits; I25.10 Atherosclerotic heart disease of native coronary artery without angina pectoris; G47.33 Obstructive sleep apnea (adult) (pediatric)
CPT/HCPCS: 70450; 80048; 85025; 99284; A4216

== ENCOUNTER 2022-09-29 09:30 | Emergency (ER) | payer MEDICARE, OTHER, SELFPAY ==
[2020-07-29 07:35] VITALS: BMI 46.7
[2022-09-29 09:31] VITALS: BP 182/97; PULSE 56; RESP 20; TEMP 36.6; O2SAT 95; BMI 50.9
--- NOTE | 2022-09-29 09:54 | CT_ITS ---
STUDY: CT ABDOMEN AND PELVIS WITHOUT CONTRAST REASON FOR EXAM: Male, 71 years old. Constipation, concern for obstruction RADIATION DOSAGE (If Supplied By Facility): CTDIvol = ( 33.65 ) mGy, DLP = ( 1950.84 ) mGycm TECHNIQUE: Transaxial images were obtained from the dome of the diaphragm to the symphysis pubis without oral contrast, and without intravenous contrast. Sagittal and coronal images were reconstructed. Individualized dose optimization techniques were used for this CT. COMPARISON: Comparison is made with prior study dated 11/22/2016. FINDINGS: Patchy infiltrate versus atelectasis along the posterior aspect of the lingular segment of the left upper lobe abutting the left major fissure. Increased markings at the right lung base. This may represent either scarring and/or atelectasis. Coronary artery calcification. The patient is status post liver transplant. Fatty infiltration of the liver. Surgical clips are seen in the region of the gallbladder fossa. Normal spleen. There is diffuse atrophy of the pancreas. Normal bilateral adrenal glands. There is atrophy of the [place] kidneys. Nonobstructive calculi are seen in the lower pole calyx of the right kidney and left kidney. The largest measures 3 mm. A transplanted kidney is seen in the left lower quadrant. Normal visualized stomach. Normal small intestine. Large amount of fecal material is seen in the rectosigmoid colon. There is non-visualization of the appendix. There is diffuse atherosclerotic calcification of the abdominal aorta and its major visceral branches., without a demonstrated aneurysm. Normal inferior vena cava. Normal retroperitoneum. Distended urinary bladder. Normal abdominal wall. There are degenerative changes of the visualized lumbar spine. CT/Abdomen/Pelvis without Cont IMPRESSION: Large amount of fecal material is seen in the rectosigmoid colon. Distended urinary bladder. Extensive atherosclerotic changes of the aorta and major visceral branches. Electronically Signed: Cliff Priest MD at 11:44 EST ,
--- NOTE | 2022-09-29 09:58 | EDS_ITS ---
HPI HPI - GI History of Present Illness Chief Complaint: Constipation Informant: patient Narrative Narrative: Patient is a 71-year-old male with extensive medical history including prior liver and kidney transplant, small bowel obstruction, hypertension, history of stroke, left renal artery stenosis, CKD 3, chronic pain, coronary artery disease and morbid obesity. Patient is in pain management with Dr. Cornejo. He has not had a bowel movement in 6 days and states he is passing minimal gas. He was prescribed Relistor and is taken 4 pills of this with no results. He also been taking MiraLAX before that. He denies any associated nausea or vomiting. He has some mild lower abdominal pain a prescription for more as a pressure that can be sharp. Denies any fever or chills. Notes he has had decreased urination over the past few days and is just dribbling. No other complaints at this time. [facility] Medical History Anemia Asthma Atherosclerotic heart disease of [place] coronary artery without angina pectoris Chronic kidney disease, stage 3a Chronic nonalcoholic liver disease Chronic pain syndrome Cirrhosis of liver End stage renal failure on dialysis Essential (primary) hypertension GERD (gastroesophageal reflux disease) History of CVA (cerebrovascular accident) (06/2021) History of non-ST elevation myocardial infarction (NSTEMI) (03/30/20) Hydronephrosis Immunosuppression Left renal artery stenosis Morbid obesity Obstructive sleep apnea Osteoarthritis Renal calculi Segmental and somatic dysfunction of lumbar region Superficial thrombophlebitis TIA (transient ischemic attack) Home Medications pantoprazole 40 mg tablet,delayed release (Protonix) 40 mg PO DAILY gerd 12/20/19 [History Last Taken 10/01/21] oxybutynin chloride 10 mg tablet,extended release 24 hr 10 mg PO DAILY bladder 03/29/20 [History Last Taken 10/01/21] prednisone 5 mg tablet 5 mg PO DAILY anti rejection 03/29/20 [History Last Taken 10/01/21] aspirin 81 mg tablet,delayed release (Adult Low Dose Aspirin) 81 mg PO DAILY HEART HEALTH 04/15/20 [History Last Taken 10/01/21] mycophenolate mofetil 500 mg tablet (CellCept) 500 mg PO BID TRANSPLANT 04/15/20 [History Last Taken 10/01/21] tacrolimus 1 mg capsule,extended release 24 hr 1 mg PO BID liver transplant 04/15/20 [History Last Taken 10/01/21] zafirlukast 20 mg tablet (Accolate) 20 mg PO Q12H BREATHING 04/15/20 [History Last Taken 10/01/21] sulfamethoxazole 400 mg-trimethoprim 80 mg tablet 2 tab PO MOWEFR preventative atb 07/17/20 [History Last Taken 10/01/21] nifedipine 90 mg tablet,extended release 24 hr (Procardia XL) 90 mg PO DAILY HEART 10/01/21 [History Last Taken 10/01/21] allopurinol 100 mg tablet 100 mg PO QHS #0 tabs 10/06/21 [Rx Last Taken Unknown] oxycodone 5 mg tablet 5 mg PO TID PRN pain 3 days #12 tabs 10/06/21 [Rx Last Taken Unknown] clopidogrel 75 mg tablet See Rx Instructions .Route .COMPLEX #90 TABLETS 12/21/21 [Rx Last Taken Unknown] atorvastatin 40 mg tablet 40 mg PO QHS CHOLESTEROL #90 tabs 01/26/22 [Rx Last Taken Unknown] acyclovir 400 mg tablet 1 tab PO 5X/DAY #50 tabs 08/12/22 [Rx Last Taken Unknown] prednisone 20 mg tablet 60 mg PO DAILY #12 tabs 08/12/22 [Rx Last Taken Unknown] doxazosin 8 mg tablet 8 mg PO QHS bp #90 tabs 08/17/22 [Rx Last Taken Unknown] carvedilol 25 mg tablet (Coreg) 50 mg PO BID this is a dose increase #360 tabs 09/26/22 [Rx Last Taken Unknown] Allergy/AdvReac Type Severity Reaction Status Date / Time metformin Allergy Other Verified 09/29/22 09:34 pregabalin [From Lyrica] Allergy Other Verified 09/29/22 09:34 Family History Other PGM diabetes Surgical History History of knee replacement History of left heart catheterization (04/03/20) History of stent insertion of renal artery (2014) Kidney transplant recipient (07/13/12) Kidney transplant recipient Liver transplant recipient (07/13/12) Social History household members: spouse Smoking Status: Never smoker second hand exposure: No alcohol intake: never substance use type: does not use caffeine: Yes frequency: 3-4 times per week ROS ROS ED Constitutional Constitutional ED: Denies chills or fever(s) Cardiovascular Cardiovascular: Denies chest pain Respiratory/Chest Respiratory/Chest: Denies cough Gastrointestinal Gastrointestinal: Reports other Details: rectal pain/pressure ; Denies abdominal pain, nausea or vomiting Genitourinary Genitourinary ED: Reports other Details: difficulty urinating, decreased urination ; Denies dysuria Musculoskeletal Musculoskeletal: Reports arthralgias, back pain, myalgias and other Details: chronic Integumentary Denies rash Neurologic Neurologic: Denies headache(s) Psychiatric Psychiatric: Denies anxiety Hematologic/Lymphatic Hematologic/Lymphatic: Denies easy bleeding or easy bruising EXAM Physical Exam Const Vital Signs: 09/29/22 09:31 Temperature 97.8 F Temperature Source Temporal Pulse Rate 56 L Respiratory Rate 20 H Blood Pressure 182/97 H Blood Pressure Mean 125 Pulse Ox 95 Oxygen Delivery Method Room Air Positive well nourished, well developed and obese General Appearance ED: well developed and NAD Nutritional Appearance: obese HEENT Reports moist mucous membranes Eyes PERRL and EOMs intact bilaterally Neck supple Resp normal respiratory effort and clear to auscultation bilaterally Cardio regular rate, regular rhythm and no murmurs GI non-tender and non-distended GI Narrative: On rectal exam patient has a large amount of stool in the proximal rectum that is just beyond my reach. It is not significantly hard. Patient has a lot of pain with rectal exam and does not tolerated that well. Auscultation: hypoactive bowel sounds Palpation: soft; Negative for tender or guarding Back/Spine no CVA tenderness Neuro moves all extremities Sensorium / Orientation: alert, oriented to person, oriented to place and oriented to time Psych mental status grossly normal MDM MDM MDM Narrative Medical decision making narrative: Patient is evaluated for constipation. He has been passing minimal gas and has not had a bowel movement or passed any stool in at least 6 days. He has a history of longstanding constipation as well as small bowel obstruction has required surgical intervention for what possibly sounds like a perforated fecal impaction however patient's entirely clear. In addition he is immunosuppressed and has had a kidney and liver transplant. Because of this, I will check lab work and obtain a CT to rule out any acute surgical abnormalities including small bowel obstruction or signs of perforation. Overall however patient is q uite well-appearing with a nonsurgical abdomen. Patient is given a dose of fentanyl in the ER in addition to his regular oxycodone. CT shows a large amount of stool in the rectum but no other acute process. Attempted to disimpact him however the stool ball is little too high for me to reach. Patient is given a soapsuds enema and then has a large bowel movement and feels that he completely emptied his rectum and is feeling much better. Will be discharged home. Case is discussed with his pain management doctor, Dr. Beckman as well. Lab Data Attestation: I reviewed the patient's lab results. Labs: Laboratory Results - last 24 hr 09/29/22 09/29/22 09/29/22 10:40 10:40 11:30 WBC 8.2 RBC 4.99 Hgb 14.5 Hct 44.3 MCV 88.8 MCH 29.1 MCHC 32.7 RDW Std Deviation 44.2 H RDW Coeff of Leonie 13.7 Plt Count 150 MPV 10.3 Immature Gran % (Auto) 0.700 Neut % (Auto) 63.8 Lymph % (Auto) 27.4 [place] % (Auto) 7.0 Eos % (Auto) 0.9 Baso % (Auto) 0.2 Absolute Neuts (auto) 5.2 Absolute Lymphs (auto) 2.25 Nucleated RBC % 0 Sodium 143 Potassium 3.8 Chloride 108 H Carbon Dioxide 27.0 Anion Gap 8 BUN 24 H Creatinine 1.33 H Estim Creat Clear Calc 50.00 Est GFR (MDRD) Af Amer 68 Est GFR (MDRD) Non-Af 56 L BUN/Creatinine Ratio 18.0 Glucose 132 H Calcium 8.9 Total Bilirubin 1.10 H AST 11 L ALT 48 Alkaline Phosphatase 81 Total Protein 6.3 L Albumin 3.5 Globulin 2.8 Albumin/Globulin Ratio 1.2 Urine Color Yellow Urine Clarity Sl Cloudy Urine pH 5.0 Ur Specific [place] 1.015 Urine Protein 15 H Urine Glucose (UA) Normal Urine Ketones Negative Urine Occult Blood <50 H Urine Nitrite Negative Urine Bilirubin Negative Urine Urobilinogen Normal Ur Leukocyte Esterase 100 H Urine RBC 0-5 SEEN Urine WBC 25-50 SEEN Ur Squamous Epith Cells 0 SEEN Urine Bacteria 0 SEEN Urine Mucus 0 SEEN Radiography Diagnostic Testing: Clinical Impression(s) from Imaging Studies Abdomen/Pelvis CT 09/29/22 09:54 IMPRESSION: Large amount of fecal material is seen in the rectosigmoid colon. Distended urinary bladder. Extensive atherosclerotic changes of the aorta and major visceral branches. Electronically Signed: Cliff Priest MD at 11:44 EST , Discharge Plan Triage Chief Complaint: Constipation ED Provider: Reena Baig Dx/Rx/DC Orders Clinical Impression: Fecal impaction in rectum, Constipation due to slow transit Instructions: ED Constipation (Adult), ED Fecal Impaction, Treated Prescriptions: No Action pantoprazole [Protonix] 40 mg tablet,delayed release (DR/EC) 40 mg PO DAILY aspirin [Adult Low Dose Aspirin] 81 mg tablet,delayed release (DR/EC) 81 mg PO DAILY mycophenolate mofetil [CellCept] 500 mg tablet 500 mg PO BID zafirlukast [Accolate] 20 mg tablet 20 mg PO Q12H Rx Instructions: administer 1 hour before or 2 hours after food or meals tacrolimus 1 mg capsule,extended release 24hr 1 mg PO BID Label Comments: REJECTION MED oxybutynin chloride 10 MG tablet extended release 24hr 10 mg PO DAILY prednisone 5 MG tablet 5 mg PO DAILY sulfamethoxazole-trimethoprim 400-80 mg tablet 2 tab PO MOWEFR Rx Instructions: take one tablet po every monday, monday, monday nifedipine [Procardia XL] 90 mg tablet extended release 24hr 90 mg PO DAILY allopurinol 100 mg Tablet 100 mg PO QHS Qty: 0 0RF oxycodone 5 mg Tablet 5 mg PO TID PRN (Reason: pain) 3 Days Qty: 12 0RF prednisone 20 mg tablet 60 mg PO DAILY Qty: 12 0RF acyclovir 400 mg tablet 1 tab PO 5X/DAY Qty: 50 0RF clopidogrel 75 mg tablet See Rx Instructions .ROUTE .COMPLEX Qty: 90 3RF Dose Instruction: take 1 tablet by mouth once daily Rx Instructions: take 1 tablet by mouth once daily atorvastatin 40 mg tablet 40 mg PO QHS Qty: 90 3RF doxazosin 8 mg tablet 8 mg PO QHS Qty: 90 3RF carvedilol [Coreg] 25 mg tablet 50 mg PO BID Qty: 360 3RF Rx Instructions: must administer with a meal/food Primary Care Provider: Shanelle Luz Referrals: Shanelle Luz DO [Primary Care Provider] - Disposition Disposition: Home, Self Care Discharge Date/Time: 09/29/22 15:08
[2022-09-29 10:52] LABS: Absolute Lymphocyte Count 2.25 X10^3/uL (0.83-4.51); Absolute Neutrophil Count 5.2 X10^3/uL (2.0-7.7); Basophil# 0.02 X10^3/uL; Basophil% 0.2 % (0-1); Eosinophil# 0.07 X10^3/uL; Eosinophils% 0.9 % (0-5); Hematocrit 44.3 % (40-54); Hemoglobin 14.5 g/dL (13.0-16.5); Lymphocyte # 2.25 X10^3/ul (0.83-4.51); Lymphocyte % 27.4 % (19-41); Mean Corp Hgb Conc 32.7 g/dL (32-36); Mean Corpuscular Hgb 29.1 pg (27.0-32.0); Mean Corpuscular Volume 88.8 fL (80-94); Mean Platelet Vol. 10.3 fl (6.2-12.0); Monocyte# 0.57 X10^3/uL; NRBC Flagged by Analyzer 0 % (0-5); Neutrophil # 5.23 X10^3/uL (2.7-7.7); Neutrophil % 63.8 % (47-70); Platelet Count 150 K/mm3 (150-450); RBC Distribution Width CV 13.7 % (11.6-14.6); RBC Distribution Width SD 44.2 fl (35.1-43.9); Red Blood Count 4.99 M/mm3 (4.6-6.2); White Blood Count 8.2 K/mm3 (4.4-11.0)
[2022-09-29 11:06] LABS: ALB/GLOB Ratio 1.2 RATIO (0.9-2.4); AST(SGOT) 11 U/L (15-37); Alanine Aminotransfer ALT/SGPT 48 U/L (16-61); Albumin, Serum 3.5 g/dL (3.2-5.0); Alkaline Phosphatase 81 U/L (45-117); Anion Gap 8 (5-15); BUN 24 mg/dL (7-18); Calcium,Total 8.9 mg/dL (8.5-10.1); Chloride 108 mmol/L (98-107); Creatinine, Serum 1.33 mg/dL (0.70-1.30); EST Glomerular Filtration Rate 56 mL/min (>60); Est Glom Filt Rate - Afr Amer 68 mL/min (>60); Globulin 2.8 g/dL (2.2-4.2); Glucose 132 mg/dL (74-106); Potassium 3.8 mmol/L (3.5-5.1); Protein, Total 6.3 g/dL (6.4-8.2); Sodium Level 143 mmol/L (136-145)
[2022-09-29 11:47] LABS: Bacteria 0 SEEN /hpf (None Seen); Mucous, Urine 0 SEEN /hpf (<or=2+); Squamous Epithelial Cells - UA 0 SEEN /hpf (0-5)
[2022-09-29] MEDS: 0.9% Normal Saline 1,000 ML 1000 ML IV (11:49)
[2022-09-29 11:59] LABS: Color, Urine Yellow (Yellow); Ketone-Dipstick Negative (Negative); Specific Gravity, Urine 1.015 (1.002-1.030); Urine Bilirubin Dipstick Negative (Negative); Urine Clarity Sl Cloudy (Clear)
[2022-09-29 12:00] LABS: Leukocyte Esterase-Dipstick 100 /ul (Negative); Nitrite-Dipstick Negative (Negative); Occult Blood-Urine <50 /ul (Negative); Protein-Dipstick 15 mg/dl (Negative); Urine Urobilinogen Normal (Normal)
[2022-09-29 12:02] LABS: Glucose, Dipstick Normal (Normal)
[2022-09-29 12:03] LABS: White Blood Cells 25-50 SEEN /hpf (0-5)
[2022-09-29 12:04] LABS: Red Blood Cells-Urine 0-5 SEEN /hpf (0-5)
[2022-09-29] MEDS: fentaNYL 100 MCG/2 ML Ampul 50 MCG IV (12:47)
--- NOTE | 2022-09-29 13:36 | ED.RN ---
THIS RN IN TO ASSIST DR WITH FECAL DISIMPACTION. NO IMPROVEMENT. THIS RN ATTEMPTING SOAP SUDS ENEMA. PT NOT ABLE TO HOLD MUCH FLUID. PT CURRENTLY SITTING ON BEDSIDE COMMODE
--- NOTE | 2022-09-29 15:16 | ED.RN ---
pt had very large bowel movement. states feels like entire impaction has resolved
== END 2022-09-29 15:08 | disposition home or self-care (01) ==
PROVIDERS: Emergency Provider Emergency Medicine; PCP Internal Medicine; Visit Provider Emergency Medicine
DX: K56.41 Fecal impaction (principal); Z99.2 Dependence on renal dialysis; I12.0 Hypertensive chronic kidney disease with stage 5 chronic kidney disease or end stage renal disease; N18.6 End stage renal disease; E66.01 Morbid (severe) obesity due to excess calories; R10.30 Lower abdominal pain, unspecified; I25.10 Atherosclerotic heart disease of native coronary artery without angina pectoris; Z86.73 Personal history of transient ischemic attack (TIA), and cerebral infarction without residual deficits; G47.33 Obstructive sleep apnea (adult) (pediatric)
CPT/HCPCS: 74176; 80053; 81001; 85025; 96361; 96374; 99285; J7030; A4216

== ENCOUNTER 2022-11-02 12:39 | Inpatient (IN) | payer MEDICARE, OTHER, SELFPAY ==
[2020-07-29 07:35] VITALS: BMI 46.7
[2022-11-02] VITALS (11 sets, daily range): BP systolic 160–205; BP diastolic 91–117; PULSE 53–88; RESP 12–20; TEMP 36.3–37.1; O2SAT 93–98; BMI 49.4; BMI 44.5
--- NOTE | 2022-11-02 13:47 | EKG12_ITS ---
Test Reason : Blood Pressure : / mmHG Vent. Rate : 065 BPM Atrial Rate : 054 BPM P-R Int : 198 ms QRS Dur : 160 ms QT Int : 482 ms P-R-T Axes : 083 -62 000 degrees QTc Int : 501 ms Sinus bradycardia with Premature supraventricular complexes Right bundle branch block Left anterior fascicular block Bifascicular block Cannot rule out Inferior infarct (masked by fascicular block?) , age undetermined Abnormal ECG Confirmed by TIARA RUSSELL, ROSANGELA ([id number]), school photograph editor RACHELE FRANZ ([id number]) on 11/07/2022 9:35:21 AM Referred By: Confirmed By:CECILIA MENJIVAR MD
--- NOTE | 2022-11-02 13:47 | CT_ITS ---
STUDY: CT BRAIN WITHOUT CONTRAST REASON FOR EXAM: Male, 71 years old. High BP, confusion RADIATION DOSAGE (If Supplied By Facility): CTDIvol = ( 44.99 ) mGy, DLP = ( 863.60 ) mGycm TECHNIQUE: Transaxial CT imaging of the brain was performed without administration of intravenous contrast material. Individualized dose optimization techniques were used for this CT. COMPARISON: Comparison is made with prior study dated 08/12/2022. FINDINGS: Normal soft tissue structures. Normal calvarium. There is moderate cerebral atrophy with widening of the extra-axial spaces and ventricular dilatation. There are areas of decreased attenuation within the white matter tracts of the supratentorial brain, consistent with microvascular disease changes. Normal basal ganglia and thalami. Normal brainstem. Normal cerebellum. There is no intracranial hemorrhage. There are no findings of an acute ischemic infarction. Atherosclerotic calcification of the vertebral arteries and cavernous portions of the internal carotid arteries bilaterally. Mucosal thickening along the posterior inferior aspect of the left maxillary sinus as well as the left sphenoid sinus. CT/Brain/Head without Contrast IMPRESSION: Chronic involutional changes of the brain. Electronically Signed: Cliff Priest MD at 14:35 EST ,
--- NOTE | 2022-11-02 13:49 | EX.ED.DYSGE1 ---
HPI History of Present Illness Chief Complaint: General Illness Informant: patient and spouse/S.O. Narrative Narrative: Patient has been confused off-and-on and foggy in the brain for the past 2 to 3 days. gives most of the history because the patient states he does not remember. He complained of feeling dizzy, the patient cannot remember what kind of dizziness that felt like, yesterday he vomited. She checked his blood pressure today and it was somewhere around 170/105, he has been having issues controlling his high blood pressure lately, this past month his combination man changed his blood pressure medications a little bit, added 1 an attempt to get better control. The patient denies having any symptoms right now, he has had no chest pain or abdominal pain that he knows of, he does not feel nauseated right now and he does not have a headache right now. He denies any focal neurologic symptoms as he lies here. He has been compliant with the medications as prescribed. [facility] Medical History Anemia Asthma Atherosclerotic heart disease of [place] coronary artery without angina pectoris Chronic kidney disease, stage 3a Chronic nonalcoholic liver disease Chronic pain syndrome Cirrhosis of liver End stage renal failure on dialysis Essential (primary) hypertension GERD (gastroesophageal reflux disease) History of CVA (cerebrovascular accident) (06/2021) History of non-ST elevation myocardial infarction (NSTEMI) (03/30/20) Hydronephrosis Immunosuppression Left renal artery stenosis Morbid obesity Obstructive sleep apnea Osteoarthritis Renal calculi Segmental and somatic dysfunction of lumbar region Superficial thrombophlebitis TIA (transient ischemic attack) Home Medications pantoprazole 40 mg tablet,delayed release (Protonix) 40 mg PO DAILY gerd 12/20/19 [History Last Taken 10/01/21] oxybutynin chloride 10 mg tablet,extended release 24 hr 10 mg PO DAILY bladder 03/29/20 [History Last Taken 10/01/21] prednisone 5 mg tablet 5 mg PO DAILY anti rejection 03/29/20 [History Last Taken 10/01/21] aspirin 81 mg tablet,delayed release (Adult Low Dose Aspirin) 81 mg PO DAILY HEART HEALTH 04/15/20 [History Last Taken 10/01/21] mycophenolate mofetil 500 mg tablet (CellCept) 500 mg PO BID TRANSPLANT 08/12/20 [History Last Taken 10/01/21] tacrolimus 1 mg capsule,extended release 24 hr 1 mg PO BID liver transplant 04/15/20 [History Last Taken 10/01/21] zafirlukast 20 mg tablet (Accolate) 20 mg PO Q12H BREATHING 04/15/20 [History Last Taken 10/01/21] sulfamethoxazole 400 mg-trimethoprim 80 mg tablet 2 tab PO MOWEFR preventative atb 07/17/20 [History Last Taken 10/01/21] allopurinol 100 mg tablet 100 mg PO QHS #0 tabs 10/06/21 [Rx Last Taken Unknown] oxycodone 5 mg tablet 5 mg PO TID PRN pain 3 days #12 tabs 10/06/21 [Rx Last Taken Unknown] clopidogrel 75 mg tablet See Rx Instructions .Route .COMPLEX #90 TABLETS 12/21/21 [Rx Last Taken Unknown] atorvastatin 40 mg tablet 40 mg PO QHS CHOLESTEROL #90 tabs 01/26/22 [Rx Last Taken Unknown] acyclovir 400 mg tablet 1 tab PO 5X/DAY #50 tabs 08/12/22 [Rx Last Taken Unknown] carvedilol 25 mg tablet (Coreg) 50 mg PO BID this is a dose increase #360 tabs 09/26/22 [Rx Last Taken Unknown] spironolactone 50 mg tablet 50 mg PO DAILY #60 tabs 09/30/22 [Rx Last Taken Unknown] doxazosin 8 mg tablet 8 mg PO QAM bp #90 tabs 10/06/22 [Rx Last Taken Unknown] nifedipine 90 mg tablet,extended release 24 hr (Procardia XL) 90 mg PO DAILY HEART #90 tabs 10/10/22 [Rx Last Taken Unknown] Allergy/AdvReac Type Severity Reaction Status Date / Time metformin Allergy Other Verified 11/02/22 12:43 pregabalin [From Lyrica] Allergy Other Verified 11/02/22 12:43 Family History Other PGM diabetes Surgical History History of knee replacement History of left heart catheterization (04/03/20) History of stent insertion of renal artery (2014) Kidney transplant recipient (07/13/12) Kidney transplant recipient Liver transplant recipient (07/13/12) Social History household members: spouse Smoking Status: Never smoker second hand exposure: No alcohol intake: never substance use type: does not use caffeine: Yes frequency: 3-4 times per week ROS ROS ED Review of Systems ROS Unobtainable: other Details: Cannot remember see HPI; ROS based on patient's symptoms right now Eyes Eyes: Denies diplopia Cardiovascular Cardiovascular: Denies chest pain or racing heartbeat Respiratory/Chest Respiratory/Chest: Denies cough Gastrointestinal Gastrointestinal: Reports vomiting; Denies abdominal pain Musculoskeletal Musculoskeletal: Denies back pain or neck pain Neurologic Neurologic: Reports as per HPI and confusion; Denies headache(s), paresthesias or weakness EXAM Physical Exam Const Vital Signs: 11/02/22 12:41 11/02/22 13:12 11/02/22 13:14 Temperature 97.9 F Temperature Source Temporal Pulse Rate 53 L 57 L Respiratory Rate 20 H 12 Respiratory Effort Normal Non-Labored Blood Pressure 205/114 H 161/91 H Blood Pressure Mean 144 114 Pulse Ox 93 98 Oxygen Delivery Method Room Air Room Air 11/02/22 13:59 11/02/22 14:33 11/02/22 17:18 Temperature Temperature Source Pulse Rate 66 Respiratory Rate 20 H Respiratory Effort Blood Pressure 177/117 H 160/97 H 174/113 H Blood Pressure Mean 137 118 133 Pulse Ox 95 Oxygen Delivery Method Room Air Positive well nourished and well developed General Appearance ED: well developed and NAD HEENT Reports moist mucous membranes normocephalic and atraumatic Eyes PERRL and EOMs intact bilaterally Neck full ROM and supple Resp normal respiratory effort and clear to auscultation bilaterally Cardio regular rate, regular rhythm and no murmurs GI non-tender and non-distended Auscultation: normoactive bowel sounds Palpation: soft Back/Spine no CVA tenderness General Back: other FROM Extremity normal to inspection General Extremety ED: Negative for edema, pulses abnormal or tenderness General Extremity: Negative for edema or pulses abnormal Neuro oriented x3, CN's II-XII intact bilaterally and no sensory deficits noted Neuro Narrative: Oriented x3 but amnestic to some details and times over the last couple days. NIHSS 0. No ataxia. Sensorium / Orientation: awake and alert Motor Exam: strength 5/5 throughout Psych mental status grossly normal Skin no rashes or lesions noted and no wounds MDM MDM MDM Narrative Medical decision making narrative: Initially give the patient hydralazine 10 mg, his blood pressure came down nicely to 160 but it creep back up to around the 190s again. He did not have any new symptoms or changes, still having memory issues. I retreated his blood pressure. My main concern on his labs is his DANA with creatinine up to 1.76. His baseline is 1.2-1.3, he is a kidney transplant patient. His coordinator is Ariana at [facility], I discussed with her. She recommended hydrating him and ruling in or out a urinary infection, but does not think he needs to be transferred to the transplant center for this. I did an EKG on this patient, mostly because he was somewhat confused and not able to tell me if he was having any chest discomfort or dyspnea in the last couple days, and interestingly he has a new right bundle branch block that he did not have before. 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 I added a troponin and it is negative with a high-sensitivity level of 17. The significance of these new block/EKG changes unknown at this time. Patient also follows with Dr. Mcadams, I discussed blood pressure/medication issue with him. He agreed with admitting him, along with prn's for now. Urinalysis reviewed, does not show any evidence of infection definitively at this time, few white blood cells, no bacteria, so I am sending this for culture. Lab Data Attestation: I reviewed the patient's lab results. Labs: Laboratory Results - last 24 hr 11/02/22 11/02/22 11/02/22 13:00 13:00 16:35 WBC 8.2 RBC 5.07 Hgb 14.7 Hct 46.6 MCV 91.9 MCH 29.0 MCHC 31.5 L RDW Std Deviation 43.8 RDW Coeff of Leonie 13.0 Plt Count 165 MPV 10.9 Immature Gran % (Auto) 0.400 Neut % (Auto) 52.7 Lymph % (Auto) 35.9 [place] % (Auto) 7.3 Eos % (Auto) 3.5 Baso % (Auto) 0.2 Absolute Neuts (auto) 4.3 Absolute Lymphs (auto) 2.94 Nucleated RBC % 0 Sodium 140 Potassium 4.9 Chloride 110 H Carbon Dioxide 26.0 Anion Gap 4 L BUN 41 H Creatinine 1.76 H Est GFR (MDRD) Af Amer 49 L Est GFR (MDRD) Non-Af 41 L BUN/Creatinine Ratio 23.3 H Glucose 134 H Calcium 10.0 Troponin I High Sens 17 Urine Color Yellow Urine Clarity Clear Urine pH 5.0 Ur Specific [place] 1.010 Urine Protein 30 H Urine Glucose (UA) Normal Urine Ketones Negative Urine Occult Blood 10 H Urine Nitrite Negative Urine Bilirubin Negative Urine Urobilinogen Normal Ur Leukocyte Esterase 500 H Urine RBC 0 SEEN Urine WBC 5-10 SEEN Ur Squamous Epith Cells 0 SEEN Urine Bacteria 0 SEEN Urine Mucus 0 SEEN Radiography Diagnostic Testing: Clinical Impression(s) from Imaging Studies Brain CT 11/02/22 13:47 IMPRESSION: Chronic involutional changes of the brain. Electronically Signed: Cliff Priest MD at 14:35 EST , CT images reviewed, unremarkable. I agree with the radiologist interpretation, and I reviewed the interpretation. Rhythm Strip Rhythm Strip: Sinus Rhythm Rate: 65 Ectopy: None EKG Initial EKG: Attestation: I personally reviewed and interpreted this EKG as follows: Interpretation: Sinus Rhythm, No Acute Injury Pattern, RBBB and LAFB Discharge Plan Dx/Rx/DC Orders Clinical Impression: Hypertensive urgency, Kidney transplant recipient, DANA (acute kidney injury), Acute electrocardiogram changes, Encephalopathy acute Disposition Disposition: Acute Care [facility]
[2022-11-02] MEDS: hydrALAZINE 20 MG/ML Vial 10 MG IV ×3 (14:02→20:29)
[2022-11-02 14:14] LABS: Anion Gap 4 (5-15); BUN 41 mg/dL (7-18); BUN/Creat Ratio 23.3 RATIO (10-20); Chloride 110 mmol/L (98-107); Creatinine, Serum 1.76 mg/dL (0.70-1.30); EST Glomerular Filtration Rate 41 mL/min (>60); Est Glom Filt Rate - Afr Amer 49 mL/min (>60); Glucose 134 mg/dL (74-106); Potassium 4.9 mmol/L (3.5-5.1); Sodium Level 140 mmol/L (136-145); Troponin-I HS 17 pg/mL (3.0-78.0)
[2022-11-02 16:20] LABS: Absolute Lymphocyte Count 2.94 X10^3/uL (0.83-4.51); Absolute Neutrophil Count 4.3 X10^3/uL (2.0-7.7); Basophil# 0.02 X10^3/uL; Basophil% 0.2 % (0-1); Eosinophil# 0.29 X10^3/uL; Eosinophils% 3.5 % (0-5); Hematocrit 46.6 % (40-54); Hemoglobin 14.7 g/dL (13.0-16.5); Lymphocyte # 2.94 X10^3/ul (0.83-4.51); Lymphocyte % 35.9 % (19-41); Mean Corp Hgb Conc 31.5 g/dL (32-36); Mean Corpuscular Volume 91.9 fL (80-94); Mean Platelet Vol. 10.9 fl (6.2-12.0); Monocyte% 7.3 % (0-10); NRBC Flagged by Analyzer 0 % (0-5); Neutrophil # 4.31 X10^3/uL (2.7-7.7); Neutrophil % 52.7 % (47-70); Platelet Count 165 K/mm3 (150-450); RBC Distribution Width SD 43.8 fl (35.1-43.9); Red Blood Count 5.07 M/mm3 (4.6-6.2); White Blood Count 8.2 K/mm3 (4.4-11.0)
[2022-11-02 16:40] LABS: Bacteria 0 SEEN /hpf (None Seen); Mucous, Urine 0 SEEN /hpf (<or=2+); Red Blood Cells-Urine 0 SEEN /hpf (0-5); Squamous Epithelial Cells - UA 0 SEEN /hpf (0-5)
[2022-11-02 16:53] LABS: Color, Urine Yellow (Yellow); Glucose, Dipstick Normal (Normal); Ketone-Dipstick Negative (Negative); Leukocyte Esterase-Dipstick 500 /ul (Negative); Nitrite-Dipstick Negative (Negative); Occult Blood-Urine 10 /ul (Negative); Protein-Dipstick 30 mg/dl (Negative); Urine Bilirubin Dipstick Negative (Negative); Urine Clarity Clear (Clear); Urine Urobilinogen Normal (Normal)
[2022-11-02 16:59] LABS: White Blood Cells 5-10 SEEN /hpf (0-5)
--- NOTE | 2022-11-02 17:47 | NURSING ---
114 OBS [facility], DANA, EKG CHANGES
[2022-11-02] MEDS: Lactated Ringers 1,000 ML 100 ML IV (19:56)
[2022-11-02] MEDS: Carvedilol 25 MG Tablet 50 MG PO (20:23)
[2022-11-02] MEDS: Atorvastatin Calcium 40 MG Tablet PO (20:24)
[2022-11-02] MEDS: Tacrolimus Anhydrous 1 MG Capsule PO (20:25)
[2022-11-02] MEDS: Heparin Injection (Vial) 5,000 UNIT/ML VIAL 5000 UNIT SC (20:25)
[2022-11-02] MEDS: Allopurinol 100 MG Tablet PO (20:28)
--- NOTE | 2022-11-02 20:39 | HP.PCM.HOS_ITS ---
HPI - General General Date of Admission: 11/02/22 Date of Service: 11/02/22 Chief Complaint: Encephalopathy/confusion HPI Narrative TOM GALLAGHER, is a 71 M who presented to the emergency department at [facility] on 11/02/2022 with a chief complaint of dizziness and confusion. The gave most of his history to the emergency department physician. Unfortunately she was not in the room at the time of my evaluation and the patient was limited on his information. He he reported he was here predominantly for his blood pressure elevation. He is unable to tell me what his baseline blood pressure is however he has been markedly elevated in the emergency department. Evidently yesterday he had some dizziness and had an episode of vomiting. She checked his blood pressure today and it was found to be about 170/105. He has been having issues with hypertension lately and his cardiology recently changed his blood pressure medicines with the attempt of improving his blood pressure control control however I do not see a recent visit with cardiology here and his last appointment appears to be on 01/04/[address] Schroeder. He has had no vomiting today. He has no new onset tingling numbness or weakness. Patient reports he has been compliant with medications he has been giving. He denies any chest pain or headache. He states his bowels have been moving normally and denies any urinary complaints. He is unable to tell me when he had his renal transplant. Vital signs on presentation demonstrated temperature of 97.9, heart rate 53, blood pressure was 205/114, respiratory rate was 20 and oxygen saturations were 93% on room air. His CBC was unremarkable. His chemistry panel showed normal electrolytes. BUN was elevated at 41 and his serum creatinine was elevated at 1.76 (baseline 1.2-1.5). His blood glucose was 134. His troponin was 17. UA was unremarkable other than some small occult blood and leuk esterase with only 5-10 white cells per high-powered field and no bacteria. CT of the head showed chronic involutional changes of the brain. EKG demonstrated right bundle branch block that appears to be new and an existing left anterior fascicular block. The emergency department did give him some IV medication for blood pressure which did improve his blood pressure however he did trend back up by the time I saw him. The case was discussed with his primary selling underwriter Dr. Mcadams and they recommended admitting him and continue with as needed blood pressure medications for now. Based on his urinalysis they did send a culture however I do not feel that he likely has a UTI and no antibiotics were given. [facility] Medical History Anemia Asthma Atherosclerotic heart disease of [place] coronary artery without angina pectoris Chronic kidney disease, stage 3a Chronic nonalcoholic liver disease Chronic pain syndrome Cirrhosis of liver End stage renal failure on dialysis Essential (primary) hypertension GERD (gastroesophageal reflux disease) History of CVA (cerebrovascular accident) (06/2021) History of non-ST elevation myocardial infarction (NSTEMI) (03/30/20) Hydronephrosis Immunosuppression Left renal artery stenosis Morbid obesity Obstructive sleep apnea Osteoarthritis Renal calculi Segmental and somatic dysfunction of lumbar region Superficial thrombophlebitis TIA (transient ischemic attack) Home Medications pantoprazole 40 mg tablet,delayed release (Protonix) 40 mg PO DAILY gerd 12/20/19 [History Last Taken 10/01/21] oxybutynin chloride 10 mg tablet,extended release 24 hr 10 mg PO DAILY bladder 03/29/20 [History Last Taken 10/01/21] prednisone 5 mg tablet 5 mg PO DAILY anti rejection 03/29/20 [History Last Taken 10/01/21] aspirin 81 mg tablet,delayed release (Adult Low Dose Aspirin) 81 mg PO DAILY HEART HEALTH 04/15/20 [History Last Taken 10/01/21] tacrolimus 1 mg capsule,extended release 24 hr 1 mg PO BID liver transplant 04/15/20 [History Last Taken 10/01/21] zafirlukast 20 mg tablet (Accolate) 20 mg PO Q12H BREATHING 04/15/20 [History Last Taken 10/01/21] sulfamethoxazole 400 mg-trimethoprim 80 mg tablet 2 tab PO MOWEFR preventative atb 07/17/20 [History Last Taken 10/01/21] oxycodone 5 mg tablet 5 mg PO TID PRN pain 3 days #12 tabs 10/06/21 [Rx Last Taken Unknown] atorvastatin 40 mg tablet 40 mg PO QHS CHOLESTEROL #90 tabs 01/26/22 [Rx Last Taken 11/01/22] carvedilol 25 mg tablet (Coreg) 50 mg PO BID this is a dose increase #360 tabs 09/26/22 [Rx Last Taken 11/02/22] spironolactone 50 mg tablet 50 mg PO DAILY #60 tabs 09/30/22 [Rx Last Taken Unknown] doxazosin 8 mg tablet 8 mg PO QAM bp #90 tabs 10/06/22 [Rx Last Taken Unknown] nifedipine 90 mg tablet,extended release 24 hr (Procardia XL) 90 mg PO DAILY HEART #90 tabs 10/10/22 [Rx Last Taken Unknown] allopurinol 300 mg tablet 300 mg PO DAILY GOUT 11/02/22 [History Last Taken Unknown] clopidogrel 75 mg tablet 75 mg PO DAILY BLOOD THINNER 11/02/22 [History Last Taken Unknown] mycophenolate mofetil 250 mg capsule 500 mg PO BID 11/02/22 [History Last Taken 11/02/22] nystatin 100,000 unit/gram topical powder (Nystop) 1 applic topical BID 11/02/22 [History Last Taken Unknown] Allergy/AdvReac Type Severity Reaction Status Date / Time metformin Allergy Other Verified 11/02/22 12:43 pregabalin [From Lyrica] Allergy Other Verified 11/02/22 12:43 Family History Other PGM diabetes Surgical History History of knee replacement History of left heart catheterization (04/03/20) History of stent insertion of renal artery (2014) Kidney transplant recipient (07/13/12) Kidney transplant recipient Liver transplant recipient (07/13/12) Social History household members: spouse Smoking Status: Never smoker second hand exposure: No alcohol intake: never substance use type: does not use caffeine: Yes frequency: 3-4 times per week ROS Constitutional Constitutional: Denies anorexia, change in weight, chills, fatigue, fever(s), malaise, night sweats, weakness or other Eyes Eyes: Denies blurry vision, change in eye color, change in vision, discharge from eye(s), double vision, erythema, eye pain, loss of vision or other ENT HEENT: Denies abnormal hearing, dysphagia, ear pain, epistaxis, headache(s), hearing loss, nasal congestion, nasal discharge, post nasal drip, sinus pressure, sore throat or other Cardiovascular Cardiovascular: Denies chest pain, claudication, dyspnea on exertion, edema, lightheadedness, orthopnea, palpitations, paroxysmal nocturnal dyspnea, rapid heart rate, syncope or other Respiratory/Chest Respiratory/Chest: Denies cough, dyspnea, excessive phlegm production, hemoptysis, productive cough, shortness of breath at rest, shortness of breath with exertion, wheezing or other Gastrointestinal Gastrointestinal: Denies abdominal pain, coffee ground emesis, constipation, diarrhea, dyspepsia, hematemesis, hematochezia, loose stools, melena, nausea, vomiting or other Genitourinary Genitourinary: Denies burning urination, difficulty urinating, dysuria, hematuria, nocturia, urinary frequency, urinary hesitancy, urinary incontinence, urinary urgency or other Musculoskeletal Musculoskeletal: Denies arthralgias, back pain, joint pain, joint stiffness, joint swelling, myalgias, neck pain or other Neurologic Neurologic: Denies abnormal gait, abnormal speech, confusion, disequilibrium, dizziness, focal weakness, headache(s), numbness, paresthesias, seizure-like activity, seizures, syncope, tingling, tremor(s) or other Psychiatric Psychiatric: Denies anxiety, depression, homicidal ideation, suicidal ideation or other Endocrine Endocrinology: Denies change in body appearance, cold intolerance, excessive sweating, heat intolerance, polydipsia, polyuria or other Hematologic/Lymphatic Hematologic/Lymphatic: Denies anemia, easy bleeding, easy bruising, lymphadenopathy or other Allergic/Immunologic Allergic/Immunologic: Denies rhinitis, hives, eczemia, asthma or other Vital Signs Vital Signs Vital Signs: 11/02/22 12:41 11/02/22 13:12 11/02/22 13:14 Temperature 97.9 F Temperature Source Temporal Pulse Rate 53 L 57 L Pulse Strength Respiratory Rate 20 H 12 Respiratory Effort Normal Non-Labored Respiratory Depth Respiratory Pattern Blood Pressure 205/114 H 161/91 H Blood Pressure Mean 144 114 Blood Pressure Source Blood Pressure Position Blood Pressure Location Pulse Ox 93 98 Oxygen Delivery Method Room Air Room Air 11/02/22 13:59 11/02/22 14:33 11/02/22 17:18 Temperature Temperature Source Pulse Rate 66 Pulse Strength Respiratory Rate 20 H Respiratory Effort Respiratory Depth Respiratory Pattern Blood Pressure 177/117 H 160/97 H 174/113 H Blood Pressure Mean 137 118 133 Blood Pressure Source Blood Pressure Position Blood Pressure Location Pulse Ox 95 Oxygen Delivery Method Room Air 11/02/22 17:33 11/02/22 18:30 11/02/22 20:04 Temperature 98.7 F 98.2 F Temperature Source Temporal Oral Pulse Rate 76 76 Pulse Strength Normal (2+) Respiratory Rate 20 H 16 Respiratory Effort Respiratory Depth Respiratory Pattern Blood Pressure 174/113 H 193/106 H Blood Pressure Mean 133 135 Blood Pressure Source Monitor Blood Pressure Position Semi-Fowlers Blood Pressure Location Left Forearm Pulse Ox 95 95 Oxygen Delivery Method Room Air Room Air 11/02/22 20:05 11/02/22 20:29 Temperature Temperature Source Pulse Rate 71 Pulse Strength Respiratory Rate Respiratory Effort Normal Respiratory Depth Normal Respiratory Pattern Normal Blood Pressure 183/105 H Blood Pressure Mean Blood Pressure Source Blood Pressure Position Blood Pressure Location Pulse Ox Oxygen Delivery Method Room Air Weight Weight: 136.9 kg Body Mass Index (BMI) 44.5 Physical Exam Const alert, oriented x3, no apparent distress and well nourished Constitutional Narrative: Morbidly obese, older white male, sitting up in bed, appears comfortable, nontoxic, patient is alert and oriented x3 however tells me he was just here because of his blood pressure elevation which is not consistent with the report I got from the emergency department nor the history taken in the documentation General Appearance: cooperative HEENT normocephalic, head/scalp atraumatic and moist oral mucous membranes; Negative for hearing grossly normal bilaterally HEENT Narrative: Mallampati 3-4, dentition is fair, no thrush, mild hearing loss Eyes PERRL, EOMs intact bilaterally and conjunctivae normal Eyes Narrative: No scleral icterus Neck no lymphadenopathy, supple, no JVD and no carotid bruits Neck Narrative: Trachea midline, no thyroid enlargement Resp normal respiratory effort, no retractions, no use of accessory muscles and clear to auscultation bilaterally Auscultation: Negative for rales, rhonchi or wheezes Cardio regular rate, regular rhythm, S1 normal heart sound, S2 normal heart sound, no murmurs, no rub and no clicks; Negative for no gallops Cardio Narrative: S4 gallop present GI normal to inspection, nondistended, normoactive bowel sounds, soft to palpation and non-tender Extremity Extremity Narrative: Trace bilateral lower extremity edema that is pitting, 2+ pedal pulses, 2+ radial pulses Skin no rashes or lesions noted, no wounds, no jaundice, no petechiae and no mottling Neuro oriented x3, CN's II-XII intact bilaterally, moves all extremities and no focal motor deficits Neuro Narrative: Generalized weakness noted from debility but no focal deficits Speech: speech normal Psych affect normal Results Lab / Micro Data Result Diagrams: 11/02/22 13:00 11/02/22 13:00 Labs: Laboratory Results - last 24 hr 11/02/22 13:00: WBC 8.2, RBC 5.07, Hgb 14.7, Hct 46.6, MCV 91.9, MCH 29.0, MCHC 31.5 L, RDW Std Deviation 43.8, RDW Coeff of Leonie 13.0, Plt Count 165, MPV 10.9, Immature Gran % (Auto) 0.400, Neut % (Auto) 52.7, Lymph % (Auto) 35.9, [place] % (Auto) 7.3, Eos % (Auto) 3.5, Baso % (Auto) 0.2, Absolute Neuts (auto) 4.3, Absolute Lymphs (auto) 2.94, Nucleated RBC % 0 11/02/22 13:00: Sodium 140, Potassium 4.9, Chloride 110 H, Carbon Dioxide 26.0, Anion Gap 4 L, BUN 41 H, Creatinine 1.76 H, Est GFR (MDRD) Af Amer 49 L, Est GFR (MDRD) Non-Af 41 L, BUN/Creatinine Ratio 23.3 H, Glucose 134 H, Calcium 10.0, Troponin I High Sens 17 11/02/22 16:35: Urine Color Yellow, Urine Clarity Clear, Urine pH 5.0, Ur Specific [place] 1.010, Urine Protein 30 H, Urine Glucose (UA) Normal, Urine Ketones Negative, Urine Occult Blood 10 H, Urine Nitrite Negative, Urine Bilirubin Negative, Urine Urobilinogen Normal, Ur Leukocyte Esterase 500 H, Urine RBC 0 SEEN, Urine WBC 5-10 SEEN, Ur Squamous Epith Cells 0 SEEN, Urine Bacteria 0 SEEN, Urine Mucus 0 SEEN Rhythm Strip Rhythm Strip: Sinus Rhythm Rate: 65 Ectopy: None Radiology Impression Brain CT 11/02/22 13:47 IMPRESSION: Chronic involutional changes of the brain. Electronically Signed: Cliff Priest MD at 14:35 EST , Assessment & Plan Assessment/Plan (1) Elevated serum creatinine: (2) Hypertensive emergency: PLAN: Plan Hypertensive emergency -Patient has acute metabolic encephalopathy and serum creatinine elevation greater than his baseline -Continue home Coreg 50 mg p.o. twice daily -Continue home nifedipine 90 mg daily -Hold home Aldactone for today with hydration - consider restarting tomorrow if DANA improved -As needed hydralazine and labetalol are available for systolic pressures greate r than 160 -Consult nephrology -I am concerned that this may have something to do with his previous renal transplant -Patient with documented left renal artery stenosis unclear on the timing of this Elevated serum creatinine on CKD stage IIIb -Baseline serum creatinine appears to be between 1.2 and 1.5 -Current serum creatinine 1.76 -This does not meet criteria for DANA as it is not 0.3 above his baseline and urine output is stable -We will gently hydrate with 1 L IV fluids -Repeat lab in a.m. -If no improvement further work-up may need to be pursued -Patient does have previous renal transplant in 2011 -Consult nephrology Acute toxic/metabolic encephalopathy -May be related to his marked blood pressure elevation -CT of the head unremarkable -May need to consider MRI if mental status not improved with improvement in blood pressure -Check tacrolimus level History of kidney transplant -Continue immunosuppression -Check tacrolimus level with confusion -Continue Bactrim prophylaxis -Consult nephrology Chronic diastolic heart failure -Last echo from 06/14/2021 shows an EF of 60%, stage I diastolic dysfunction and mild concentric LVH -No acute issues -Hold Aldactone as we gently hydrate with mildly worsening renal function HTN/HPL -Hypertension medications as above -Continue atorvastatin 40 mg daily History of stroke -06/2021 -Continue -Continue aspirin Debility -PT/OT consultation PAUL -Continue nocturnal CPAP BPH -Continue doxazosin Urinary retention -Continue oxybutynin GERD -Continue Protonix Asthma -Restart Zarfirlukast on discharge DVT prophylaxis -Heparin SQ 3 times daily CODE STATUS -DNR CCA no intubation Charges/Coding Visit Charges Inpatient E&M: 02335 Init Hosp L3
[2022-11-02] MEDS: Ondansetron 4 MG/2 ML Vial IV (21:47)
[2022-11-02] MEDS: Labetalol (Prefilled) 20 MG/4 ML IV (21:47)
[2022-11-03] VITALS (7 sets, daily range): BP systolic 128–178; BP diastolic 81–111; PULSE 68–87; RESP 16–18; TEMP 36.4–37.1; O2SAT 92–99
[2022-11-03] MEDS: Ondansetron 4 MG/2 ML Vial IV (06:07)
[2022-11-03] MEDS: Heparin Injection (Vial) 5,000 UNIT/ML VIAL 5000 UNIT SC ×3 (06:07→20:57)
[2022-11-03 06:15] LABS: Absolute Lymphocyte Count 2.25 X10^3/uL (0.83-4.51); Absolute Neutrophil Count 6.1 X10^3/uL (2.0-7.7); Basophil# 0.01 X10^3/uL; Basophil% 0.1 % (0-1); Eosinophil# 0.19 X10^3/uL; Eosinophils% 2.1 % (0-5); Hematocrit 45.8 % (40-54); Hemoglobin 14.7 g/dL (13.0-16.5); Lymphocyte # 2.25 X10^3/ul (0.83-4.51); Lymphocyte % 24.6 % (19-41); Mean Corp Hgb Conc 32.1 g/dL (32-36); Mean Corpuscular Hgb 29.2 pg (27.0-32.0); Mean Corpuscular Volume 90.9 fL (80-94); Mean Platelet Vol. 10.8 fl (6.2-12.0); Monocyte# 0.57 X10^3/uL; Monocyte% 6.2 % (0-10); NRBC Flagged by Analyzer 0 % (0-5); Neutrophil # 6.08 X10^3/uL (2.7-7.7); Neutrophil % 66.7 % (47-70); Platelet Count 158 K/mm3 (150-450); RBC Distribution Width CV 13.1 % (11.6-14.6); Red Blood Count 5.04 M/mm3 (4.6-6.2); White Blood Count 9.1 K/mm3 (4.4-11.0)
[2022-11-03 07:04] LABS: Phosphorus 3.5 mg/dL (2.5-4.9)
[2022-11-03 07:09] LABS: ALB/GLOB Ratio 1.2 RATIO (0.9-2.4); AST(SGOT) 11 U/L (15-37); Alanine Aminotransfer ALT/SGPT 24 U/L (16-61); Albumin, Serum 3.4 g/dL (3.2-5.0); Alkaline Phosphatase 72 U/L (45-117); Anion Gap 9 (5-15); BUN 34 mg/dL (7-18); BUN/Creat Ratio 22.8 RATIO (10-20); Calcium,Total 9.6 mg/dL (8.5-10.1); Chloride 111 mmol/L (98-107); Creatinine, Serum 1.49 mg/dL (0.70-1.30); EST Glomerular Filtration Rate 49 mL/min (>60); Est Glom Filt Rate - Afr Amer 60 mL/min (>60); Estimated Creatinine Clearance 46.13 ml/min; Globulin 2.8 g/dL (2.2-4.2); Glucose 167 mg/dL (74-106); Magnesium 1.7 mg/dL (1.6-2.6); Protein, Total 6.2 g/dL (6.4-8.2); Sodium Level 141 mmol/L (136-145); Thyroid Stim Hormone (TSH) 1.37 uIU/mL (0.358-3.74)
[2022-11-03] MEDS: Carvedilol 25 MG Tablet 50 MG PO ×2 (09:11→16:48)
[2022-11-03] MEDS: Mycophenolate Mofetil 250 MG Capsule 500 MG PO ×2 (09:11→20:53)
[2022-11-03] MEDS: Tolterodine Tartrate 4 MG CAP.SA PO (09:11)
[2022-11-03] MEDS: Pantoprazole Sodium 40 MG Tablet PO (09:12)
[2022-11-03] MEDS: Doxazosin 4 MG Tablet 8 MG PO (09:12)
[2022-11-03] MEDS: Clopidogrel Bisulfate 75 MG Tablet PO (09:12)
[2022-11-03] MEDS: predniSONE 5 MG Tablet PO (09:12)
[2022-11-03] MEDS: NIFEdipine 90 MG Tablet PO (09:12)
[2022-11-03] MEDS: Aspirin E.C. 81 MG Tablet PO (09:12)
[2022-11-03] MEDS: Tacrolimus Anhydrous 1 MG Capsule PO ×2 (09:12→20:55)
--- NOTE | 2022-11-03 09:18 | PN.HOSP_ITS ---
Subjective Subjective No issues overnight, blood pressure still remains elevated. He is alert but his mentation is slow Objective Data Objective Data Vital Signs: Vital Signs Temp Pulse Resp BP Pulse Ox O2 Del Method 98.7 F 68 16 178/111 H 94 Room Air 11/03/22 09:10 11/03/22 09:10 11/03/22 09:10 11/03/22 09:10 11/03/22 09:10 11/03/22 09:10 Oxygen Delivery Method Room Air Weight: 301 lb 13.005 oz Body Mass Index (BMI) 44.5 Intake & Output: Intake and Output for Last 24 Hours 11/02/22 11/03/22 11/04/22 03:59 03:59 03:59 Intake Total 500 / 500 891.67 / 891.67 Output Total 600 / 600 Balance -100 / -100 891.67 / 891.67 Lab / Micro Data Result Diagrams: 11/03/22 05:49 11/03/22 05:49 Labs: Laboratory Results - last 24 hr 11/02/22 13:00: WBC 8.2, RBC 5.07, Hgb 14.7, Hct 46.6, MCV 91.9, MCH 29.0, MCHC 31.5 L, RDW Std Deviation 43.8, RDW Coeff of Leonie 13.0, Plt Count 165, MPV 10.9, Immature Gran % (Auto) 0.400, Neut % (Auto) 52.7, Lymph % (Auto) 35.9, [place] % (Auto) 7.3, Eos % (Auto) 3.5, Baso % (Auto) 0.2, Absolute Neuts (auto) 4.3, Absolute Lymphs (auto) 2.94, Nucleated RBC % 0 11/02/22 13:00: Sodium 140, Potassium 4.9, Chloride 110 H, Carbon Dioxide 26.0, Anion Gap 4 L, BUN 41 H, Creatinine 1.76 H, Est GFR (MDRD) Af Amer 49 L, Est GFR (MDRD) Non-Af 41 L, BUN/Creatinine Ratio 23.3 H, Glucose 134 H, Calcium 10.0, Troponin I High Sens 17 11/02/22 16:35: Urine Color Yellow, Urine Clarity Clear, Urine pH 5.0, Ur Specific [place] 1.010, Urine Protein 30 H, Urine Glucose (UA) Normal, Urine Ketones Negative, Urine Occult Blood 10 H, Urine Nitrite Negative, Urine Bilirubin Negative, Urine Urobilinogen Normal, Ur Leukocyte Esterase 500 H, Urine RBC 0 SEEN, Urine WBC 5-10 SEEN, Ur Squamous Epith Cells 0 SEEN, Urine Bacteria 0 SEEN, Urine Mucus 0 SEEN 11/03/22 05:49: WBC 9.1, RBC 5.04, Hgb 14.7, Hct 45.8, MCV 90.9, MCH 29.2, MCHC 32.1, RDW Std Deviation 43.0, RDW Coeff of [place]ie 13.1, Plt Count 158, MPV 10.8, Immature Gran % (Auto) 0.300, Neut % (Auto) 66.7, Lymph % (Auto) 24.6, [place] % (Auto) 6.2, Eos % (Auto) 2.1, Baso % (Auto) 0.1, Absolute Neuts (auto) 6.1, Absolute Lymphs (auto) 2.25, Nucleated RBC % 0 11/03/22 05:49: Sodium 141, Potassium 5.0, Chloride 111 H, Carbon Dioxide 21.0, Anion Gap 9, BUN 34 H, Creatinine 1.49 H, Estim Creat Clear Calc 46.13, Est GFR (MDRD) Af Amer 60, Est GFR (MDRD) Non-Af 49 L, BUN/Creatinine Ratio 22.8 H, Glucose 167 H, Calcium 9.6, Magnesium 1.7, Total Bilirubin 0.80, AST 11 L, ALT 24, Alkaline Phosphatase 72, Total Protein 6.2 L, Albumin 3.4, Globulin 2.8, Albumin/Globulin Ratio 1.2, TSH 1.37 11/03/22 05:49: Phosphorus 3.5 Radiography Diagnostic Testing: Radiology Impression Brain CT 11/02/22 13:47 IMPRESSION: Chronic involutional changes of the brain. Electronically Signed: Cliff Priest MD at 14:35 EST , Rhythm Strip Rhythm Strip: Sinus Rhythm Rate: 65 Ectopy: None Physical Exam Narrative General: Alert, Oriented x3, Cooperative, No apparent distress, slow mentation HEENT: Atraumatic, PERRLA, EOMI, Normocephalic Oral: Moist Mucosa Neck: Supple, No JVD Lungs: Clear to auscultation, Normal air movement, No rhonchi, No wheeze, No rales Cardiovascular: Regular rate, Regular Rhythm, Normal S1, Normal S2, No murmurs Abdomen: Soft, Non Tender, Non-Distended, No Hepato-splenomegaly Extremities: Trace edema, Capillary Refill Less than 3 Seconds Skin: No rashes, No breakdown Musculoskeletal: No Tenderness to Palpation of Joints or Extremities Neurological: Cranial nerves II-XII grossly intact, Motor Exam 5/5 strength throughout, Sensory exam intact to light touch and pain Psych/Mental Status: Normal Affect, Appropriate Assessment & Plan Assessment/Plan (1) Elevated serum creatinine: (2) Hypertensive emergency: PLAN: Plan 1. Hypertensive emergency with acute toxic versus metabolic encephalopathy/CKD 3B/history of kidney transplant/renal artery stenosis ? We will resume all of his home blood pressure medications ? We will give him as needed hydralazine ? We will hold his Aldactone secondary to the slight rise in his creatinine on admission ? We will consult nephrology, there is concern that this could be worsening renal artery stenosis versus issue with his transplanted kidney ? The etiology of his encephalopathy is unclear at the moment CT of the head was unremarkable, and the tacrolimus level is pending. This could be related to his blood pressure though unlikely ? Continue with PT/OT evaluation for debility and weakness 2. Hypertension, chronic diastolic CHF, hyperlipidemia, history of CVA ? Resume all of his home blood pressure medications ? Continue with the statin ? We will hold his Aldactone secondary to a slight increase in creatinine on admission ? Continue with his at 3. Urinary retention/BPH ? Continue with doxazosin and oxybutynin ? Stable 4. GERD ? Stable ? Continue with Protonix 5 PAUL/asthma ? Stable ? Continue with his nocturnal CPAP, can restart his zafirlukast on discharge DVT: Heparin Charges/Coding Visit Charges Inpatient E&M: 38148 Subs Hosp L2
[2022-11-03] MEDS: hydrALAZINE 20 MG/ML Vial 10 MG IV (10:19)
[2022-11-03] MEDS: 0.9% Saline Lock 10 ML Syringe IV (10:20)
--- NOTE | 2022-11-03 12:01 | RDU_ITS ---
Reason For Study: HTN Aorta Proximal abdominal aorta 1.60 x 1.60 cm . Proximal abdominal aorta peak systolic velocity is 65.8 cm/sec . Distal abdominal aorta 1.38 x 1.36 cm . Distal abdominal aorta peak systolic velocity is 77.1 cm/sec . . LLQ Kidney Transplant Dimension: 11.46 cm. Cortex dimension: 1.37 cm. Upper Pole Medula 21.2/6.5 PSV/EDV. Upper pole medulla EDR 0.3 . Upper pole medulla R.I. 0.69 . Upper Marcin Cortx 12.7/5.3 PSV/EDV. Upper pole cortex EDR 0.4 . Upper pole cortex R.I. 0.58 . Lower Pole medulla 26.2/9.6 PSV/EDV . Lower pole medulla EDR 0.4 . Lower pole medulla R.I. 0.63 . Lower Pole Cortex 13.9/5.9 PSV/EDV. Lower pole cortex EDR 0.4 . Lower pole cortex R.I. 0.58 . Renal artery ostium 118/28.5 RSV/EDV. Renal artery proximal 103.4/24.8 PSV/EDV. Renal artery mid 90.6/34 PSV/EDV. Renal artery distal 72.3/30.3 PSV/EDV. VL/Renal Artery Duplex Ultrasound Interpretation Summary Patent transplant renal artery with normal velocities and no evidence of stenos is. Patent transplant renal vein Kidney normal in size Ordering Physician: Alvarado Chávez Referring Physician: Shanelle Luz M.D. Performed By: Toya Ray RVT
[2022-11-03] MEDS: Chlorthalidone 50 MG Tablet 25 MG PO (13:21)
[2022-11-03] MEDS: Menthol/Lanolin/Calamine/Znox 113 GM Tube 1 APPLIC TOPICAL ×2 (13:22→20:56)
--- NOTE | 2022-11-03 13:45 | CON.PCM.RE_ITS ---
Assessment & Plan Assessment/Plan (1) Hypertensive emergency: PLAN: BP was noted to be significantly high. Preadmission medication list of reviewed. All the Actonel is temporarily on hold due to DANA. I reviewed his records from [facility]. It seems there was suspected renal artery stenosis, at the site of his renal artery anastomosis to iliac there was a kink noted with significant velocity difference across. A stent placement was attempted in 2018 and this was not successful. Initial stent deployed to dislodged distally and another stent was prematurely deployed went into gluteal artery somehow. I wonder if there is worsening of this renal artery stenosis. I will add chlorthalidone. We'll check with radiology if a Doppler can be done in the transplant. (2) DANA (acute kidney injury): PLAN: likely due to hemodynamic changes. Baseline creatinine is around 1.5. Back to baseline today (3) Kidney transplant recipient: PLAN: continue home immunosuppression for now. Platelet count is normal. CT head normal. Low suspicion for TMA. If mental status does not improve, he may need MRI to rule out PRES. he also has history of recurrent UTIs. Urine analysis does show some leukocytes. HPI Consult Data Date of Consult: 11/03/22 HPI Narrative Reason for Consultation: kidney transplantation, hypertension HPI Narrative: TOM GALLAGHER, is a 71 M who presents to the hospital with hypertensive urgency, mental status changes. Nephrology on consultation in view of kidney transplant history. He has no history of liver and kidney transplant, simultaneous back in 2011. He follows with transplant team at [facility]. Last visit was with Dr. Small. Baseline creatinine is around 1.5. Blood pressure was noted to be high. He was recently started on spironolactone. Creatinine was slightly higher yesterday, but to baseline today. Today he is still somewhat confused. 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 denies any urinary complaints. Urine analysis did show few leukocytes. [facility] Medical History Anemia Asthma Atherosclerotic heart disease of [place] coronary artery without angina pectoris Chronic kidney disease, stage 3a Chronic nonalcoholic liver disease Chronic pain syndrome Cirrhosis of liver End stage renal failure on dialysis Essential (primary) hypertension GERD (gastroesophageal reflux disease) History of CVA (cerebrovascular accident) (06/2021) History of non-ST elevation myocardial infarction (NSTEMI) (03/30/20) Hydronephrosis Immunosuppression Left renal artery stenosis Morbid obesity Obstructive sleep apnea Osteoarthritis Renal calculi Segmental and somatic dysfunction of lumbar region Superficial thrombophlebitis TIA (transient ischemic attack) Home Medications pantoprazole 40 mg tablet,delayed release (Protonix) 40 mg PO DAILY gerd 12/20/19 [History Last Taken 10/01/21] oxybutynin chloride 10 mg tablet,extended release 24 hr 10 mg PO DAILY bladder 03/29/20 [History Last Taken 10/01/21] prednisone 5 mg tablet 5 mg PO DAILY anti rejection 03/29/20 [History Last Taken 10/01/21] aspirin 81 mg tablet,delayed release (Adult Low Dose Aspirin) 81 mg PO DAILY HEART HEALTH 04/15/20 [History Last Taken 10/01/21] tacrolimus 1 mg capsule,extended release 24 hr 1 mg PO BID liver transplant 08/23 [History Last Taken 10/01/21] zafirlukast 20 mg tablet (Accolate) 20 mg PO Q12H BREATHING 04/15/20 [History Last Taken 10/01/21] sulfamethoxazole 400 mg-trimethoprim 80 mg tablet 2 tab PO MOWEFR preventative atb 07/17/20 [History Last Taken 10/01/21] oxycodone 5 mg tablet 5 mg PO TID PRN pain 3 days #12 tabs 10/06/21 [Rx Last Taken Unknown] atorvastatin 40 mg tablet 40 mg PO QHS CHOLESTEROL #90 tabs 01/26/22 [Rx Last Taken 11/01/22] carvedilol 25 mg tablet (Coreg) 50 mg PO BID this is a dose increase #360 tabs 09/26/22 [Rx Last Taken 11/02/22] spironolactone 50 mg tablet 50 mg PO DAILY #60 tabs 09/30/22 [Rx Last Taken Unknown] doxazosin 8 mg tablet 8 mg PO QAM bp #90 tabs 10/06/22 [Rx Last Taken Unknown] nifedipine 90 mg tablet,extended release 24 hr (Procardia XL) 90 mg PO DAILY HEA RT #90 tabs 10/10/22 [Rx Last Taken Unknown] allopurinol 300 mg tablet 300 mg PO DAILY GOUT 11/02/22 [History Last Taken Unknown] clopidogrel 75 mg tablet 75 mg PO DAILY BLOOD THINNER 11/02/22 [History Last Taken Unknown] mycophenolate mofetil 250 mg capsule 500 mg PO BID 11/02/22 [History Last Taken 11/02/22] nystatin 100,000 unit/gram topical powder (Nystop) 1 applic topical BID 11/02/22 [History Last Taken Unknown] Allergy/AdvReac Type Severity Reaction Status Date / Time metformin Allergy Other Verified 11/02/22 12:43 pregabalin [From Lyrica] Allergy Other Verified 11/02/22 12:43 Family History Other PGM diabetes Surgical History History of knee replacement History of left heart catheterization (04/03/20) History of stent insertion of renal artery (2014) Kidney transplant recipient (07/13/12) Kidney transplant recipient Liver transplant recipient (07/13/12) Social History household members: spouse Smoking Status: Never smoker second hand exposure: No alcohol intake: never substance use type: does not use caffeine: Yes frequency: 3-4 times per week ROS ROS Narrative negative except above Physical Exam Narrative Alert awake no obvious distress no pallor no icterus no JVD s1s2 no murmurs lungs clear abdomen soft no organomegaly no edema no cyanosis Lab / Micro Data Result Diagrams: 11/03/22 05:49 11/03/22 05:49 Labs: Laboratory Results - last 24 hr 11/02/22 13:00: WBC 8.2, RBC 5.07, Hgb 14.7, Hct 46.6, MCV 91.9, MCH 29.0, MCHC 31.5 L, RDW Std Deviation 43.8, RDW Coeff of Leonie 13.0, Plt Count 165, MPV 10.9, Immature Gran % (Auto) 0.400, Neut % (Auto) 52.7, Lymph % (Auto) 35.9, [place] % (Auto) 7.3, Eos % (Auto) 3.5, Baso % (Auto) 0.2, Absolute Neuts (auto) 4.3, Absolute Lymphs (auto) 2.94, Nucleated RBC % 0 11/02/22 13:00: Sodium 140, Potassium 4.9, Chloride 110 H, Carbon Dioxide 26.0, Anion Gap 4 L, BUN 41 H, Creatinine 1.76 H, Est GFR (MDRD) Af Amer 49 L, Est GFR (MDRD) Non-Af 41 L, BUN/Creatinine Ratio 23.3 H, Glucose 134 H, Calcium 10.0, Troponin I High Sens 17 11/02/22 16:35: Urine Color Yellow, Urine Clarity Clear, Urine pH 5.0, Ur Specific [place] 1.010, Urine Protein 30 H, Urine Glucose (UA) Normal, Urine Ketones Negative, Urine Occult Blood 10 H, Urine Nitrite Negative, Urine Bilirubin Negative, Urine Urobilinogen Normal, Ur Leukocyte Esterase 500 H, Urine RBC 0 SEEN, Urine WBC 5-10 SEEN, Ur Squamous Epith Cells 0 SEEN, Urine Bacteria 0 SEEN, Urine Mucus 0 SEEN 11/03/22 05:49: WBC 9.1, RBC 5.04, Hgb 14.7, Hct 45.8, MCV 90.9, MCH 29.2, MCHC 32.1, RDW Std Deviation 43.0, RDW Coeff of Leonie 13.1, Plt Count 158, MPV 10.8, Immature Gran % (Auto) 0.300, Neut % (Auto) 66.7, Lymph % (Auto) 24.6, [place] % (Auto) 6.2, Eos % (Auto) 2.1, Baso % (Auto) 0.1, Absolute Neuts (auto) 6.1, Absolute Lymphs (auto) 2.25, Nucleated RBC % 0 11/03/22 05:49: Sodium 141, Potassium 5.0, Chloride 111 H, Carbon Dioxide 21.0, Anion Gap 9, BUN 34 H, Creatinine 1.49 H, Estim Creat Clear Calc 46.13, Est GFR (MDRD) Af Amer 60, Est GFR (MDRD) Non-Af 49 L, BUN/Creatinine Ratio 22.8 H, Glucose 167 H, Calcium 9.6, Magnesium 1.7, Total Bilirubin 0.80, AST 11 L, ALT 24, Alkaline Phosphatase 72, Total Protein 6.2 L, Albumin 3.4, Globulin 2.8, Albumin/Globulin Ratio 1.2, TSH 1.37 11/03/22 05:49: Phosphorus 3.5 Rhythm Strip Rhythm Strip: Sinus Rhythm Rate: 65 Ectopy: None Radiology Impression Brain CT 11/02/22 13:47 IMPRESSION: Chronic involutional changes of the brain. Electronically Signed: Cliff Priest MD at 14:35 EST ,
--- NOTE | 2022-11-03 14:30 | CASEMGMT ---
RN OSMAN Face to Face with for initial transition planning/care coordination assessment as patient is confused. RN CM introduced self and role at [facility]. Patient lying in bed, at bedside. willing to participate in assessment and is able to answer all questions appropriately. Care providers, pharmacy, and demographics verified. wishes for patient to discharge home but willing for patient to go to SNF if needed, will monitor progress with therapy. prefers TCU for SNF and declined list for SNF and HHC. SW updated regarding possible TCU at discharge. states she has no further needs or concerns at this time. CM to follow for discharge planning needs that may arise. PCP: Natty Specialists: Renani, pain; [facility] Transplant team Preferred Pharmacy: [facility] Insurance: [facility] [place] Prescription Benefit: yes Living Will/HPOA: yes, Serina Mata LNOK: Living Arrangements: Patient lives with in a single story home with 4 steps and railing to enter the home. Patient is normally independent at home. Transportation: DME/HHC: Patient has built in shower chair, cane, walker, grab bars, bipap, and nebulizer at home. Patient has been to [facility] in the past. Patient has had [facility] HHC in the past. [facility] if [facility] and declined list. Disposition Plan: TBD, anticipate HHC vs SNF, will monitor progress with therapy. Toya WEBSTER, RN, CM
[2022-11-03] MEDS: Atorvastatin Calcium 40 MG Tablet PO (20:55)
[2022-11-03] MEDS: Allopurinol 100 MG Tablet PO (20:58)
[2022-11-03] MEDS: Montelukast 10 MG Tablet PO (20:59)
[2022-11-04] VITALS (7 sets, daily range): BP systolic 120–151; BP diastolic 76–96; PULSE 66–71; RESP 17–18; TEMP 36.7–37.4; O2SAT 91–94
--- NOTE | 2022-11-04 04:40 | NURSING ---
Patient removing tele leads multiple times. Education and redirection ineffective patient removing and tossing box on floor hospitalist notified.
[2022-11-04 05:07] LABS: Absolute Lymphocyte Count 2.68 X10^3/uL (0.83-4.51); Basophil# 0.01 X10^3/uL; Basophil% 0.1 % (0-1); Eosinophil# 0.13 X10^3/uL; Eosinophils% 1.4 % (0-5); Hematocrit 43.2 % (40-54); Hemoglobin 14.3 g/dL (13.0-16.5); Lymphocyte # 2.68 X10^3/ul (0.83-4.51); Lymphocyte % 28.2 % (19-41); Mean Corp Hgb Conc 33.1 g/dL (32-36); Mean Corpuscular Hgb 29.5 pg (27.0-32.0); Mean Corpuscular Volume 89.3 fL (80-94); Mean Platelet Vol. 10.4 fl (6.2-12.0); Monocyte# 0.69 X10^3/uL; Monocyte% 7.3 % (0-10); NRBC Flagged by Analyzer 0 % (0-5); Neutrophil # 5.95 X10^3/uL (2.7-7.7); Neutrophil % 62.7 % (47-70); Platelet Count 148 K/mm3 (150-450); RBC Distribution Width CV 13.2 % (11.6-14.6); RBC Distribution Width SD 42.9 fl (35.1-43.9); Red Blood Count 4.84 M/mm3 (4.6-6.2); White Blood Count 9.5 K/mm3 (4.4-11.0)
[2022-11-04 05:30] LABS: Anion Gap 8 (5-15); BUN 37 mg/dL (7-18); BUN/Creat Ratio 20.7 RATIO (10-20); Calcium,Total 9.3 mg/dL (8.5-10.1); Chloride 110 mmol/L (98-107); Creatinine, Serum 1.79 mg/dL (0.70-1.30); EST Glomerular Filtration Rate 40 mL/min (>60); Est Glom Filt Rate - Afr Amer 48 mL/min (>60); Glucose 155 mg/dL (74-106); Potassium 4.8 mmol/L (3.5-5.1); Sodium Level 138 mmol/L (136-145)
[2022-11-04] MEDS: Menthol/Lanolin/Calamine/Znox 113 GM Tube 1 APPLIC TOPICAL ×3 (05:32→21:58)
[2022-11-04] MEDS: Heparin Injection (Vial) 5,000 UNIT/ML VIAL 5000 UNIT SC ×3 (05:33→22:03)
--- NOTE | 2022-11-04 07:35 | NURSING ---
Pt refusing to put director of food and nutrition services on. Will attempt again later.
--- NOTE | 2022-11-04 11:00 | PN.HOSP_ITS ---
Subjective Subjective We will continue to monitor his blood pressure throughout the day today, it seems better controlled and his confusion seems better Objective Data Objective Data Vital Signs: Vital Signs Temp Pulse Resp BP Pulse Ox O2 Del Method 98.9 F 70 18 120/76 92 Room Air 11/04/22 09:24 11/04/22 09:24 11/04/22 09:24 11/04/22 09:24 11/04/22 09:24 11/04/22 09:29 Oxygen Delivery Method Room Air Weight: 301 lb 13.005 oz Body Mass Index (BMI) 44.5 Intake & Output: Intake and Output for Last 24 Hours 11/03/22 11/04/22 11/05/22 03:59 03:59 03:59 Intake Total 500 / 500 1371.67 / 1371.67 Output Total 600 / 600 Balance -100 / -100 1371.67 / 1371.67 Lab / Micro Data Result Diagrams: 11/04/22 04:43 11/04/22 04:43 Labs: Laboratory Results - last 24 hr 11/04/22 04:43: WBC 9.5, RBC 4.84, Hgb 14.3, Hct 43.2, MCV 89.3, MCH 29.5, MCHC 33.1, RDW Std Deviation 42.9, RDW Coeff of Leonie 13.2, Plt Count 148 L, MPV 10.4, Immature Gran % (Auto) 0.300, Neut % (Auto) 62.7, Lymph % (Auto) 28.2, [place] % (Auto) 7.3, Eos % (Auto) 1.4, Baso % (Auto) 0.1, Absolute Neuts (auto) 6.0, Absolute Lymphs (auto) 2.68, Nucleated RBC % 0 11/04/22 04:43: Sodium 138, Potassium 4.8, Chloride 110 H, Carbon Dioxide 20.0 L , Anion Gap 8, BUN 37 H, Creatinine 1.79 H, Estim Creat Clear Calc 38.40, Est GFR (MDRD) Af Amer 48 L, Est GFR (MDRD) Non-Af 40 L, BUN/Creatinine Ratio 20.7 H , Glucose 155 H, Calcium 9.3 Micro: Microbiology 11/02/22 16:25 Urine, Clean Catch Urine Culture - Final Mixed Gram Positive Organisms 11/03/22 12:10 Stool Enteric Bacteriology - Final 11/03/22 12:10 Stool C. difficile DNA Amplification - Final Rhythm Strip Rhythm Strip: Sinus Rhythm Rate: 65 Ectopy: None Physical Exam Narrative General: Alert, Oriented x3, Cooperative, No apparent distress HEENT: Atraumatic, PERRLA, EOMI, Normocephalic Oral: Moist Mucosa Neck: Supple, No JVD Lungs: Clear to auscultation, Normal air movement, No rhonchi, No wheeze, No rales Cardiovascular: Regular rate, Regular Rhythm, Normal S1, Normal S2, No murmurs Abdomen: Soft, Non Tender, Non-Distended, No Hepato-splenomegaly Extremities: Trace edema, Capillary Refill Less than 3 Seconds Skin: No rashes, No breakdown Musculoskeletal: No Tenderness to Palpation of Joints or Extremities Neurological: Cranial nerves II-XII grossly intact, Motor Exam 5/5 strength throughout, Sensory exam intact to light touch and pain Psych/Mental Status: Normal Affect, Appropriate Assessment & Plan Assessment/Plan (1) Elevated serum creatinine: (2) Hypertensive emergency: PLAN: Plan 1. Hypertensive emergency with acute toxic versus metabolic encephalopathy/CKD 3B/history of kidney transplant/renal artery stenosis ? We will resume all of his home blood pressure medications ? We will give him as needed hydralazine ? We will hold his Aldactone secondary to the slight rise in his creatinine on admission, he seems to be improving with chlorthalidone may not even need the Aldactone on discharge ? We will consult nephrology, there is concern that this could be worsening renal artery stenosis versus issue with his transplanted kidney. Renal artery duplex is pending ? His encephalopathy seems to be improved with his better blood pressure control today ? Continue with PT/OT evaluation for debility and weakness 2. Hypertension/chronic diastolic CHF/hyperlipidemia/history of CVA ? Resume all of his home blood pressure medications ? Continue with the statin ? We will hold his Aldactone secondary to a slight increase in creatinine on admission ? Nephrology started him on chlorthalidone which seems to have improved his blood pressure little. 3. Urinary retention/BPH ? Continue with doxazosin and oxybutynin ? Stable 4. GERD ? Stable ? Continue with Protonix 5 PAUL/asthma ? Stable ? Continue with his nocturnal CPAP, can restart his zafirlukast on discharge DVT: Heparin Charges/Coding Visit Charges Inpatient E&M: 19146 Subs Hosp L2
--- NOTE | 2022-11-04 13:50 | CASEMGMT ---
Patient was on TCU list, however they will not have any beds until next week. SW asked about Inpatient Rehab and they do not have any beds until next week. SW reviewed therapy's notes and they are recommending patient go somewhere for rehab. SW met with patient's as patient was sleeping. SW let her know about TCU and Rehab being full. Patient's asked SW to send a referral to [facility]. Referral sent to [facility]. Await response. Bozena Rader ANODE ADJUSTER ADRIAN
[2022-11-04] MEDS: Carvedilol 25 MG Tablet 50 MG PO (13:54)
[2022-11-04] MEDS: Pantoprazole Sodium 40 MG Tablet PO (13:54)
[2022-11-04] MEDS: Doxazosin 4 MG Tablet 8 MG PO (13:54)
[2022-11-04] MEDS: NIFEdipine 90 MG Tablet PO (13:54)
[2022-11-04] MEDS: Aspirin E.C. 81 MG Tablet PO (13:55)
[2022-11-04] MEDS: Tolterodine Tartrate 4 MG CAP.SA PO (13:55)
[2022-11-04] MEDS: Smz/Tmp Ds Tablet 1 TABLET PO (13:55)
[2022-11-04] MEDS: Mycophenolate Mofetil 250 MG Capsule 500 MG PO ×2 (13:55→22:03)
[2022-11-04] MEDS: Chlorthalidone 50 MG Tablet 25 MG PO (13:56)
[2022-11-04] MEDS: Tacrolimus Anhydrous 1 MG Capsule PO ×2 (13:56→22:04)
[2022-11-04] MEDS: Clopidogrel Bisulfate 75 MG Tablet PO (13:56)
--- NOTE | 2022-11-04 14:34 | PN.RENAL_ITS ---
Subjective Subjective no new complaaints. He was able to tell me about location. Could not tell me the reason for admission to the hospital. Could not tell the date was able to tell the month and year. Blood pressure is better. Creatinine is slightly higher, likely from blood pressure fluctuations. He is scheduled for Doppler Objective Data Objective Data Vital Signs: Vital Signs Temp Pulse Resp BP Pulse Ox O2 Del Method 98.9 F 70 18 120/76 92 Room Air 11/04/22 09:24 11/04/22 09:24 11/04/22 09:24 11/04/22 09:24 11/04/22 09:24 11/04/22 09:29 Oxygen Delivery Method Room Air Weight: 136.9 kg Body Mass Index (BMI) 44.5 Intake & Output: Intake and Output for Last 24 Hours 11/02/22 11/03/22 11/04/22 23:59 23:59 23:59 Intake Total 500 / 500 1371.67 / 1371.67 400 / 400 Output Total 600 / 600 275 / 275 Balance 500 / -100 771.67 / 771.67 125 / 125 Lab / Micro Data Result Diagrams: 11/04/22 04:43 11/04/22 04:43 Labs: Laboratory Results - last 24 hr 11/04/22 04:43: WBC 9.5, RBC 4.84, Hgb 14.3, Hct 43.2, MCV 89.3, MCH 29.5, MCHC 33.1, RDW Std Deviation 42.9, RDW Coeff of Leonie 13.2, Plt Count 148 L, MPV 10.4, Immature Gran % (Auto) 0.300, Neut % (Auto) 62.7, Lymph % (Auto) 28.2, [place] % (Auto) 7.3, Eos % (Auto) 1.4, Baso % (Auto) 0.1, Absolute Neuts (auto) 6.0, Absolute Lymphs (auto) 2.68, Nucleated RBC % 0 11/04/22 04:43: Sodium 138, Potassium 4.8, Chloride 110 H, Carbon Dioxide 20.0 L , Anion Gap 8, BUN 37 H, Creatinine 1.79 H, Estim Creat Clear Calc 38.40, Est GFR (MDRD) Af Amer 48 L, Est GFR (MDRD) Non-Af 40 L, BUN/Creatinine Ratio 20.7 H , Glucose 155 H, Calcium 9.3 Micro: Microbiology 11/02/22 16:25 Urine, Clean Catch Urine Culture - Final Mixed Gram Positive Organisms 11/03/22 12:10 Stool Enteric Bacteriology - Final 11/03/22 12:10 Stool C. difficile DNA Amplification - Final Rhythm Strip Rhythm Strip: Sinus Rhythm Rate: 65 Ectopy: None Physical Exam Narrative Alert awake no obvious distress no pallor no icterus no JVD s1s2 no murmurs lungs clear abdomen soft no organomegaly no edema no cyanosis Assessment & Plan Assessment/Plan (1) Hypertensive emergency: PLAN: BP was noted to be significantly high. Preadmission medication list of reviewed. aldactone is temporarily on hold due to DANA. I reviewed his records from [facility]. It seems there was suspected renal artery stenosis, at the site of his renal artery anastomosis to iliac there was a kink noted with significant velocity difference across. A stent placement was attempted in 2018 and this was not successful. Initial stent deployed to dislodged distally and another stent was prematurely deployed went into gluteal artery somehow. I wonder if there is worsening of this renal artery stenosis. renal Dopplers pending. I added chlorthalidone yesterday, blood pressure is better. (2) DANA (acute kidney injury): PLAN: likely due to hemodynamic changes. Baseline creatinine is around 1.5. creatinine is slightly higher. (3) Kidney transplant recipient: PLAN: continue home immunosuppression for now. Platelet count is normal. CT head normal. Low suspicion for TMA. If mental status does not improve, he may need MRI to rule out PRES. he also has history of recurrent UTIs. Urine analys is does show some leukocytes.
[2022-11-04] MEDS: predniSONE 5 MG Tablet PO (14:43)
--- NOTE | 2022-11-04 15:24 | NURSING ---
Pt still refusing telemetry monitoring. aware.
--- NOTE | 2022-11-04 15:55 | CASEMGMT ---
[facility] declined patient. SW called patient's and let her know. DENISA asked if she would like SW to leave a list of facilities in patient's room. She declined. DENISA went through some of the other [place] SNF's and she asked SW to send a referral to [facility]. DENISA sent referral to [facility] via [facility]. Bozena Rader CALL CENTER COORDINATOR ADRIAN
--- NOTE | 2022-11-04 16:27 | CASEMGMT ---
[facility] accepted patient. DENISA called patient's and let her know. 7000 started in [facility] system. Plan: d/c to [facility] [place] under skilled level of care. Green sheet on chart. Bozena CAMPBELL
[2022-11-04] MEDS: Montelukast 10 MG Tablet PO (22:04)
[2022-11-04] MEDS: Atorvastatin Calcium 40 MG Tablet PO (22:04)
[2022-11-04] MEDS: Allopurinol 100 MG Tablet PO (22:04)
[2022-11-05 04:00] VITALS: BP 144/91; PULSE 63; RESP 16; TEMP 36.6; O2SAT 92
[2022-11-05] MEDS: Menthol/Lanolin/Calamine/Znox 113 GM Tube 1 APPLIC TOPICAL ×3 (05:49→22:09)
[2022-11-05] MEDS: Heparin Injection (Vial) 5,000 UNIT/ML VIAL 5000 UNIT SC ×3 (05:50→22:11)
[2022-11-05 06:38] LABS: Absolute Lymphocyte Count 2.89 X10^3/uL (0.83-4.51); Absolute Neutrophil Count 5.2 X10^3/uL (2.0-7.7); Basophil# 0.03 X10^3/uL; Basophil% 0.3 % (0-1); Eosinophil# 0.14 X10^3/uL; Eosinophils% 1.6 % (0-5); Hematocrit 41.6 % (40-54); Hemoglobin 13.3 g/dL (13.0-16.5); Lymphocyte # 2.89 X10^3/ul (0.83-4.51); Lymphocyte % 32.3 % (19-41); Mean Corpuscular Hgb 29.2 pg (27.0-32.0); Mean Corpuscular Volume 91.2 fL (80-94); Mean Platelet Vol. 10.5 fl (6.2-12.0); Monocyte# 0.67 X10^3/uL; Monocyte% 7.5 % (0-10); NRBC Flagged by Analyzer 0 % (0-5); Neutrophil # 5.19 X10^3/uL (2.7-7.7); Neutrophil % 57.9 % (47-70); Platelet Count 146 K/mm3 (150-450); RBC Distribution Width CV 13.1 % (11.6-14.6); RBC Distribution Width SD 43.4 fl (35.1-43.9); Red Blood Count 4.56 M/mm3 (4.6-6.2)
[2022-11-05 07:20] LABS: Anion Gap 7 (5-15); BUN 42 mg/dL (7-18); BUN/Creat Ratio 17.9 RATIO (10-20); Calcium,Total 9.2 mg/dL (8.5-10.1); Chloride 108 mmol/L (98-107); Creatinine, Serum 2.34 mg/dL (0.70-1.30); EST Glomerular Filtration Rate 29 mL/min (>60); Est Glom Filt Rate - Afr Amer 36 mL/min (>60); Estimated Creatinine Clearance 29.37 ml/min; Glucose 138 mg/dL (74-106); Potassium 4.6 mmol/L (3.5-5.1); Sodium Level 137 mmol/L (136-145)
[2022-11-05 07:40] VITALS: O2SAT 96
[2022-11-05 09:37] VITALS: BP 136/78; PULSE 68; RESP 16; TEMP 36.6; O2SAT 94
[2022-11-05] MEDS: Pantoprazole Sodium 40 MG Tablet PO (09:49)
[2022-11-05] MEDS: Clopidogrel Bisulfate 75 MG Tablet PO (09:49)
[2022-11-05] MEDS: NIFEdipine 90 MG Tablet PO (09:49)
[2022-11-05] MEDS: Chlorthalidone 50 MG Tablet 25 MG PO (09:49)
[2022-11-05] MEDS: Doxazosin 4 MG Tablet 8 MG PO (09:49)
[2022-11-05] MEDS: Tolterodine Tartrate 4 MG CAP.SA PO (09:49)
[2022-11-05] MEDS: Aspirin E.C. 81 MG Tablet PO (09:50)
[2022-11-05] MEDS: Tacrolimus Anhydrous 1 MG Capsule PO ×2 (09:50→22:15)
[2022-11-05] MEDS: predniSONE 5 MG Tablet PO (09:50)
[2022-11-05] MEDS: Carvedilol 25 MG Tablet 50 MG PO ×2 (09:50→17:51)
[2022-11-05] MEDS: Mycophenolate Mofetil 250 MG Capsule 500 MG PO ×2 (09:53→22:13)
[2022-11-05] MEDS: 0.9% Normal Saline 1,000 ML 100 ML IV (10:52)
--- NOTE | 2022-11-05 11:51 | NURSING ---
Level of care changed to standard as pt is refusing to wear telemetry.
--- NOTE | 2022-11-05 12:44 | PN.HOSP_ITS ---
Subjective Subjective Seems more alert today, he was talking on the phone when I entered the room. Nursing reports that he is being odd at times, he knows the orientation questions but told the nurse that she was thin so she must be a general and then had difficulty working his phone for a few seconds Objective Data Objective Data Vital Signs: Vital Signs Temp Pulse Resp BP Pulse Ox O2 Del Method 97.9 F 68 16 136/78 H 94 Room Air 11/05/22 09:37 11/05/22 09:37 11/05/22 09:37 11/05/22 09:37 11/05/22 09:37 11/05/22 09:39 Oxygen Delivery Method Room Air Weight: 301 lb 13.005 oz Body Mass Index (BMI) 44.5 Intake & Output: Intake and Output for Last 24 Hours 11/04/22 11/05/22 11/06/22 03:59 03:59 03:59 Intake Total 1371.67 / 1371.67 960 / 960 400 / 400 Output Total 550 / 550 360 / 360 Balance 1371.67 / 1371.67 410 / 410 40 / 40 Lab / Micro Data Result Diagrams: 11/05/22 06:07 11/05/22 06:07 Labs: Laboratory Results - last 24 hr 11/05/22 06:07: WBC 9.0, RBC 4.56 L, Hgb 13.3, Hct 41.6, MCV 91.2, MCH 29.2, MCHC 32.0, RDW Std Deviation 43.4, RDW Coeff of Leonie 13.1, Plt Count 146 L, MPV 10.5, Immature Gran % (Auto) 0.400, Neut % (Auto) 57.9, Lymph % (Auto) 32.3, [place] % (Auto) 7.5, Eos % (Auto) 1.6, Baso % (Auto) 0.3, Absolute Neuts (auto) 5.2, Absolute Lymphs (auto) 2.89, Nucleated RBC % 0 11/05/22 06:07: Sodium 137, Potassium 4.6, Chloride 108 H, Carbon Dioxide 22.0, Anion Gap 7, BUN 42 H, Creatinine 2.34 H, Estim Creat Clear Calc 29.37, Est GFR (MDRD) Af Amer 36 L, Est GFR (MDRD) Non-Af 29 L, BUN/Creatinine Ratio 17.9, Glucose 138 H, Calcium 9.2 Micro: Microbiology 11/02/22 16:25 Urine, Clean Catch Urine Culture - Final Mixed Gram Positive Organisms 11/03/22 12:10 Stool Enteric Bacteriology - Final 11/03/22 12:10 Stool C. difficile DNA Amplification - Final Rhythm Strip Rhythm Strip: Sinus Rhythm Rate: 65 Ectopy: None Physical Exam Narrative General: Alert, Oriented x3, Cooperative, No apparent distress, morbidly obese HEENT: Atraumatic, PERRLA, EOMI, Normocephalic Oral: Moist Mucosa Neck: Supple, No JVD Lungs: Clear to auscultation, Normal air movement, No rhonchi, No wheeze, No rales Cardiovascular: Regular rate, Regular Rhythm, Normal S1, Normal S2, No murmurs Abdomen: Soft, Non Tender, Non-Distended, No Hepato-splenomegaly Extremities: Trace edema, Capillary Refill Less than 3 Seconds Skin: No rashes, No breakdown Musculoskeletal: No Tenderness to Palpation of Joints or Extremities Neurological: Cranial nerves II-XII grossly intact, Motor Exam 5/5 strength throughout, Sensory exam intact to light touch and pain Psych/Mental Status: Normal Affect, Appropriate Assessment & Plan Assessment/Plan (1) Elevated serum creatinine: (2) Hypertensive emergency: PLAN: Plan 1. Hypertensive emergency with acute toxic versus metabolic encephalopathy/DANA on CKD 3B/history of kidney transplant/renal artery stenosis ? We will resume all of his home blood pressure medications ? We will give him as needed hydralazine ? We will hold his Aldactone secondary to the slight rise in his creatinine on admission, also discontinue his chlorthalidone given his increasing creatinine to 2.34, will start him on some IV fluid ? Appreciate nephrology's assistance, there is concern that this could be worsening renal artery stenosis versus issue with his transplanted kidney. Renal artery duplex is pending ? His encephalopathy seems to be improved with his better blood pressure control today ? Continue with PT/OT evaluation for debility and weakness 2. Hypertension/chronic diastolic CHF/hyperlipidemia/history of CVA ? Resume all of his home blood pressure medications ? Continue with the statin ? We will hold his Aldactone secondary to a slight increase in creatinine on admission ? Nephrology started him on chlorthalidone which seems to have improved his blood pressure little. 3. Urinary retention/BPH ? Continue with doxazosin and oxybutynin ? Stable ? Given his rising creatinine will obtain a bladder scan or a postvoid residual to clarify whether or not retention is an issue for his creatinine rise. 4. GERD ? Stable ? Continue with Protonix 5 PAUL/asthma ? Stable ? Continue with his nocturnal CPAP, can restart his zafirlukast on discharge DVT: Heparin Charges/Coding Visit Charges Inpatient E&M: 36792 Subs Hosp L2
[2022-11-05 13:14] VITALS: BP 124/83; PULSE 75; RESP 16; TEMP 37.3; O2SAT 92
--- NOTE | 2022-11-05 13:23 | NURSING ---
PVR Bladder scan was 6 mL.
[2022-11-05 17:49] VITALS: BP 134/76; PULSE 68; RESP 16; TEMP 36.6; O2SAT 92
--- NOTE | 2022-11-05 20:56 | CASEMGMT ---
Social Work Note DENISA met with PCU maintenance shop clerk to inquire about expected discharge, RN reports she does not believe he will be discharged this weekend as she has no notes indicating discharge. DENISA contacted patient's and introduced herself and role as [facility] Account Development Representative. Patient's in agreement to speak to DENISA. DENISA explained patient was accepted to [facility] and their admissions staff was inquiring about the patient's appointments in [place]. Patient's reports he has follow up appointments in [place] once a year and she transports him to those appointments. DENISA explained there are no discharge orders in for patient at this time, thus SW on Monday will follow up and continue to assist with discharge planning. Patient's reports understanding and has no other questions or concerns. DENISA responded to eBtina at [facility] via [employer] that patient's reports he only goes to [place] once a year for follow up appointments. Marcelle Merchant MSW, ADRIAN
[2022-11-05] MEDS: Montelukast 10 MG Tablet PO (22:13)
[2022-11-05] MEDS: Atorvastatin Calcium 40 MG Tablet PO (22:13)
[2022-11-05] MEDS: Allopurinol 100 MG Tablet PO (22:15)
[2022-11-05 22:38] VITALS: BP 142/78; PULSE 68; RESP 16; TEMP 36.9; O2SAT 92
[2022-11-06 03:10] VITALS: BP 143/86; PULSE 72; RESP 18; TEMP 36.9; O2SAT 93
[2022-11-06] MEDS: Heparin Injection (Vial) 5,000 UNIT/ML VIAL 5000 UNIT SC ×3 (06:44→20:55)
[2022-11-06 07:20] LABS: Anion Gap 6 (5-15); BUN 40 mg/dL (7-18); BUN/Creat Ratio 20.9 RATIO (10-20); Calcium,Total 9.3 mg/dL (8.5-10.1); Chloride 109 mmol/L (98-107); Creatinine, Serum 1.91 mg/dL (0.70-1.30); EST Glomerular Filtration Rate 37 mL/min (>60); Est Glom Filt Rate - Afr Amer 45 mL/min (>60); Estimated Creatinine Clearance 35.99 ml/min; Glucose 127 mg/dL (74-106); Potassium 4.4 mmol/L (3.5-5.1); Sodium Level 138 mmol/L (136-145)
[2022-11-06 09:10] VITALS: BP 151/94; PULSE 65; RESP 16; TEMP 36.9; O2SAT 94
[2022-11-06] MEDS: Doxazosin 4 MG Tablet 8 MG PO (09:48)
[2022-11-06] MEDS: Mycophenolate Mofetil 250 MG Capsule 500 MG PO ×2 (09:48→20:55)
[2022-11-06] MEDS: Tacrolimus Anhydrous 1 MG Capsule PO ×2 (09:48→20:56)
[2022-11-06] MEDS: Aspirin E.C. 81 MG Tablet PO (09:48)
[2022-11-06] MEDS: Tolterodine Tartrate 4 MG CAP.SA PO (09:48)
[2022-11-06] MEDS: NIFEdipine 90 MG Tablet PO (09:48)
[2022-11-06] MEDS: Carvedilol 25 MG Tablet 50 MG PO ×2 (09:48→16:19)
[2022-11-06] MEDS: predniSONE 5 MG Tablet PO (09:48)
[2022-11-06] MEDS: Pantoprazole Sodium 40 MG Tablet PO (09:48)
[2022-11-06] MEDS: Clopidogrel Bisulfate 75 MG Tablet PO (09:48)
[2022-11-06] MEDS: 0.9% Saline Lock 10 ML Syringe IV (09:49)
--- NOTE | 2022-11-06 10:40 | PCM.PN.REN ---
Subjective Subjective Follow-up on hypertensive urgency, transplant status, acute kidney injury. His blood pressure is much better with most of the systolics in 140s, makes good urine, creatinine came down to 1.9 today. Admits to being noncompliant with salt restriction Objective Data Objective Data Vital Signs: Vital Signs Temp Pulse Resp BP Pulse Ox O2 Del Method 98.4 F 65 16 151/94 H 94 Room Air 11/06/22 09:10 11/06/22 09:10 11/06/22 09:10 11/06/22 09:10 11/06/22 09:10 11/06/22 09:10 Oxygen Delivery Method Room Air Weight: 136.9 kg Body Mass Index (BMI) 44.5 Intake & Output: Intake and Output for Last 24 Hours 11/04/22 11/05/22 11/06/22 23:59 23:59 23:59 Intake Total 840 / 960 1920 / 1920 Output Total 550 / 550 660 / 660 Balance 290 / 410 1260 / 1260 Lab / Micro Data Attestation: I reviewed the patient's lab results. Result Diagrams: 11/05/22 06:07 11/06/22 06:03 Labs: Laboratory Results - last 24 hr 11/06/22 06:03: Sodium 138, Potassium 4.4, Chloride 109 H, Carbon Dioxide 23.0, Anion Gap 6, BUN 40 H, Creatinine 1.91 H, Estim Creat Clear Calc 35.99, Est GFR (MDRD) Af Amer 45 L, Est GFR (MDRD) Non-Af 37 L, BUN/Creatinine Ratio 20.9 H, Glucose 127 H, Calcium 9.3 Micro: Microbiology 11/02/22 16:25 Urine, Clean Catch Urine Culture - Final Mixed Gram Positive Organisms 11/03/22 12:10 Stool Enteric Bacteriology - Final 11/03/22 12:10 Stool C. difficile DNA Amplification - Final Rhythm Strip Rhythm Strip: Sinus Rhythm Rate: 65 Ectopy: None Physical Exam Const alert, oriented x3 and no apparent distress Nutritional Appearance: obese HEENT normocephalic Head and Scalp: atraumatic Neck no lymphadenopathy Resp no use of accessory muscles Cardio regular rate GI non-tender and non-distended Auscultation: normoactive bowel sounds Skin no rashes or lesions noted Neuro Sensorium / Orientation: awake and alert Psych cooperative Assessment & Plan Assessment/Plan (1) Hypertensive emergency: PLAN: His blood pressure is definitely better, and stains stable. I would not adjust medications at this point as he is kidney function started to recover (2) Elevated serum creatinine: PLAN: Improved (3) DANA (acute kidney injury): PLAN: Due to hemodynamic changes, getting better. (4) Kidney transplant recipient: PLAN: Baseline creatinine is around 1.4-1.6. It is 1.91 today, improving
[2022-11-06] MEDS: Menthol/Lanolin/Calamine/Znox 113 GM Tube 1 APPLIC TOPICAL ×2 (14:19→20:54)
[2022-11-06 14:20] VITALS: BP 141/89; PULSE 66; RESP 16; TEMP 36.8; O2SAT 95
--- NOTE | 2022-11-06 15:33 | PCM.PN.HOSP ---
Subjective Subjective Doing well, no issues overnight, appears to be at baseline with his mentation Objective Data Objective Data Vital Signs: Vital Signs Temp Pulse Resp BP Pulse Ox O2 Del Method 98.2 F 66 16 141/89 H 95 Room Air 11/06/22 14:20 11/06/22 14:20 11/06/22 14:20 11/06/22 14:20 11/06/22 14:20 11/06/22 14:20 Oxygen Delivery Method Room Air Weight: 301 lb 13.005 oz Body Mass Index (BMI) 44.5 Intake & Output: Intake and Output for Last 24 Hours 11/05/22 11/06/22 11/07/22 03:59 03:59 03:59 Intake Total 960 / 960 1800 / 1800 410 / 410 Output Total 550 / 550 660 / 660 Balance 410 / 410 1140 / 1140 410 / 410 Lab / Micro Data Result Diagrams: 11/05/22 06:07 11/06/22 06:03 Labs: Laboratory Results - last 24 hr 11/06/22 06:03: Sodium 138, Potassium 4.4, Chloride 109 H, Carbon Dioxide 23.0, Anion Gap 6, BUN 40 H, Creatinine 1.91 H, Estim Creat Clear Calc 35.99, Est GFR (MDRD) Af Amer 45 L, Est GFR (MDRD) Non-Af 37 L, BUN/Creatinine Ratio 20.9 H, Glucose 127 H, Calcium 9.3 Micro: Microbiology 11/02/22 16:25 Urine, Clean Catch Urine Culture - Final Mixed Gram Positive Organisms 11/03/22 12:10 Stool Enteric Bacteriology - Final 11/03/22 12:10 Stool C. difficile DNA Amplification - Final Rhythm Strip Rhythm Strip: Sinus Rhythm Rate: 65 Ectopy: None Physical Exam Narrative General: Alert, Oriented x3, Cooperative, No apparent distress, morbidly obese HEENT: Atraumatic, PERRLA, EOMI, Normocephalic Oral: Moist Mucosa Neck: Supple, No JVD Lungs: Clear to auscultation, Normal air movement, No rhonchi, No wheeze, No rales Cardiovascular: Regular rate, Regular Rhythm, Normal S1, Normal S2, No murmurs Abdomen: Soft, Non Tender, Non-Distended, No Hepato-splenomegaly Extremities: Trace edema, Capillary Refill Less than 3 Seconds Skin: No rashes, No breakdown Musculoskeletal: No Tenderness to Palpation of Joints or Extremities Neurological: Cranial nerves II-XII grossly intact, Motor Exam 5/5 strength throughout, Sensory exam intact to light touch and pain Psych/Mental Status: Normal Affect, Appropriate Assessment & Plan Assessment/Plan (1) Elevated serum creatinine: (2) Hypertensive emergency: PLAN: Plan 1. Hypertensive emergency with acute toxic versus metabolic encephalopathy/DANA on CKD 3B/history of kidney transplant/renal artery stenosis ? We will resume all of his home blood pressure medications ? We will give him as needed hydralazine ? We will hold his Aldactone secondary to the slight rise in his creatinine on admission, also discontinue his chlorthalidone given his creatinine increased to 2.34 yesterday, he was started on IV fluids and this has decreased to 1.91. ? Appreciate nephrology's assistance, there is concern that this could be worsening renal artery stenosis versus issue with his transplanted kidney. Renal artery duplex is pending, will monitor his blood pressure since we have to discontinue his chlorthalidone and decide on any further medication adjustments ? His encephalopathy seems to be improved with his better blood pressure control ? Continue with PT/OT evaluation for debility and weakness 2. Hypertension/chronic diastolic CHF/hyperlipidemia/history of CVA ? Resume all of his home blood pressure medications ? Continue with the statin ? We will hold his Aldactone secondary to a slight increase in creatinine on admission ? Nephrology started him on chlorthalidone which seems to have improved his blood pressure little however it did cause a rise in his creatinine and had to be discontinued 3. Urinary retention/BPH ? Continue with doxazosin and oxybutynin ? Stable ? Bladder scan when his creatinine was elevated did not show any retention 4. GERD ? Stable ? Continue with Protonix 5 PAUL/asthma ? Stable ? Continue with his nocturnal CPAP, can restart his zafirlukast on discharge DVT: Heparin Charges/Coding Visit Charges Inpatient E&M: 60880 Subs Hosp L2
[2022-11-06 20:52] VITALS: BP 146/84; PULSE 71; RESP 18; TEMP 36.8; O2SAT 96
[2022-11-06] MEDS: Atorvastatin Calcium 40 MG Tablet PO (20:56)
[2022-11-06] MEDS: Montelukast 10 MG Tablet PO (20:56)
[2022-11-06] MEDS: Allopurinol 100 MG Tablet PO (20:56)
[2022-11-07 01:58] VITALS: BP 151/94; PULSE 69; RESP 20; TEMP 36.7; O2SAT 93
[2022-11-07 05:11] VITALS: BP 148/91; PULSE 69; RESP 20; TEMP 37.1; O2SAT 94
[2022-11-07] MEDS: Menthol/Lanolin/Calamine/Znox 113 GM Tube 1 APPLIC TOPICAL ×2 (05:14→16:10)
[2022-11-07] MEDS: Heparin Injection (Vial) 5,000 UNIT/ML VIAL 5000 UNIT SC (05:14)
[2022-11-07] MEDS: Acetaminophen 325 MG Tablet 650 MG PO (05:15)
[2022-11-07 06:00] LABS: Absolute Lymphocyte Count 2.62 X10^3/uL (0.83-4.51); Absolute Neutrophil Count 5.3 X10^3/uL (2.0-7.7); Basophil# 0.02 X10^3/uL; Basophil% 0.2 % (0-1); Eosinophil# 0.22 X10^3/uL; Eosinophils% 2.5 % (0-5); Hematocrit 41.7 % (40-54); Hemoglobin 13.5 g/dL (13.0-16.5); Lymphocyte # 2.62 X10^3/ul (0.83-4.51); Lymphocyte % 29.7 % (19-41); Mean Corp Hgb Conc 32.4 g/dL (32-36); Mean Corpuscular Volume 89.5 fL (80-94); Monocyte# 0.65 X10^3/uL; Monocyte% 7.4 % (0-10); NRBC Flagged by Analyzer 0 % (0-5); Neutrophil # 5.29 X10^3/uL (2.7-7.7); Neutrophil % 59.9 % (47-70); Platelet Count 154 K/mm3 (150-450); RBC Distribution Width CV 12.7 % (11.6-14.6); RBC Distribution Width SD 41.2 fl (35.1-43.9); Red Blood Count 4.66 M/mm3 (4.6-6.2); White Blood Count 8.8 K/mm3 (4.4-11.0)
[2022-11-07 06:37] LABS: Anion Gap 9 (5-15); BUN 39 mg/dL (7-18); BUN/Creat Ratio 23.2 RATIO (10-20); Calcium,Total 9.3 mg/dL (8.5-10.1); Chloride 109 mmol/L (98-107); Creatinine, Serum 1.68 mg/dL (0.70-1.30); EST Glomerular Filtration Rate 43 mL/min (>60); Est Glom Filt Rate - Afr Amer 52 mL/min (>60); Estimated Creatinine Clearance 40.91 ml/min; Glucose 128 mg/dL (74-106); Potassium 4.6 mmol/L (3.5-5.1); Sodium Level 139 mmol/L (136-145)
[2022-11-07] MEDS: 0.9% Saline Lock 10 ML Syringe IV (08:55)
[2022-11-07] MEDS: Doxazosin 4 MG Tablet 8 MG PO (08:56)
[2022-11-07] MEDS: Smz/Tmp Ds Tablet 1 TABLET PO (08:56)
[2022-11-07] MEDS: Carvedilol 25 MG Tablet 50 MG PO ×2 (08:56→16:09)
[2022-11-07] MEDS: Aspirin E.C. 81 MG Tablet PO (08:56)
[2022-11-07] MEDS: predniSONE 5 MG Tablet PO (08:56)
[2022-11-07] MEDS: Mycophenolate Mofetil 250 MG Capsule 500 MG PO (08:57)
[2022-11-07] MEDS: NIFEdipine 90 MG Tablet PO (08:57)
[2022-11-07] MEDS: Clopidogrel Bisulfate 75 MG Tablet PO (08:57)
[2022-11-07] MEDS: Tolterodine Tartrate 4 MG CAP.SA PO (08:57)
[2022-11-07] MEDS: Tacrolimus Anhydrous 1 MG Capsule PO (08:57)
[2022-11-07] MEDS: Pantoprazole Sodium 40 MG Tablet PO (08:58)
[2022-11-07 09:02] VITALS: BP 131/98; PULSE 82; RESP 18; TEMP 36.3; O2SAT 94
--- NOTE | 2022-11-07 12:49 | CASEMGMT ---
A bed opened up in TCU. TCU was patient's original first choice, but there were no beds. SW left a message for patient's letting her know this information. She left a message that they would like [facility] instead of [facility]. DENISA notified Betina at [place] via [facility]. Plan: [facility] Bozena CAMPBELL
[2022-11-07 13:10] VITALS: O2SAT 90
--- NOTE | 2022-11-07 13:43 | PCM.PN.REN ---
Subjective Subjective No new complaints Objective Data Objective Data Vital Signs: Vital Signs Temp Pulse Resp BP Pulse Ox O2 Del Method 97.4 F L 82 18 131/98 H 94 Room Air 11/07/22 09:02 11/07/22 09:02 11/07/22 09:02 11/07/22 09:02 11/07/22 09:02 11/07/22 09:02 Oxygen Delivery Method Room Air Weight: 136.9 kg Body Mass Index (BMI) 44.5 Intake & Output: Intake and Output for Last 24 Hours 11/05/22 11/06/22 11/07/22 23:59 23:59 23:59 Intake Total 1920 / 1920 810 / 1050 360 / 360 Output Total 660 / 660 750 / 750 Balance 1260 / 1260 810 / 400 -390 / -390 Lab / Micro Data Result Diagrams: 11/07/22 04:26 11/07/22 04:26 Labs: Laboratory Results - last 24 hr 11/07/22 04:26: WBC 8.8, RBC 4.66, Hgb 13.5, Hct 41.7, MCV 89.5, MCH 29.0, MCHC 32.4, RDW Std Deviation 41.2, RDW Coeff of Leonie 12.7, Plt Count 154, MPV 11.0, Immature Gran % (Auto) 0.300, Neut % (Auto) 59.9, Lymph % (Auto) 29.7, [place] % (Auto) 7.4, Eos % (Auto) 2.5, Baso % (Auto) 0.2, Absolute Neuts (auto) 5.3, Absolute Lymphs (auto) 2.62, Nucleated RBC % 0 11/07/22 04:26: Sodium 139, Potassium 4.6, Chloride 109 H, Carbon Dioxide 21.0, Anion Gap 9, BUN 39 H, Creatinine 1.68 H, Estim Creat Clear Calc 40.91, Est GFR (MDRD) Af Amer 52 L, Est GFR (MDRD) Non-Af 43 L, BUN/Creatinine Ratio 23.2 H, Glucose 128 H, Calcium 9.3 Micro: Microbiology 11/02/22 16:25 Urine, Clean Catch Urine Culture - Final Mixed Gram Positive Organisms 11/03/22 12:10 Stool Enteric Bacteriology - Final 11/03/22 12:10 Stool C. difficile DNA Amplification - Final Rhythm Strip Rhythm Strip: Sinus Rhythm Rate: 65 Ectopy: None Physical Exam Narrative Alert awake no obvious distress no pallor no icterus no JVD s1s2 no murmurs lungs clear abdomen soft no organomegaly no edema no cyanosis Const alert, oriented x3 and no apparent distress Nutritional Appearance: obese HEENT normocephalic Neck no lymphadenopathy Resp no use of accessory muscles Cardio regular rate GI non-tender and non-distended Auscultation: normoactive bowel sounds Skin no rashes or lesions noted Neuro Sensorium / Orientation: awake and alert Psych cooperative Assessment & Plan Assessment/Plan (1) Hypertensive emergency: PLAN: Blood pressure is better. Current medications are carvedilol 50 mg twice a day, increased from 25 mg twice a day. Alpha-eldon which was added this admission. Nifedipine 90 mg once a day which is his home medication. Prior to admission, he was on spironolactone this has been discontinued. I added chlorthalidone initially and this resulted in significant creatinine change hence this was discontinued. If further blood pressure control is needed, add hydralazine. Renal Doppler was supposed to be done but could not be done. I did send a message to Dr. Small at [facility] to see if they can coordinate this. Discussed with hospitalist. Can be discharged to rehab from a nephrology standpoint (2) Elevated serum creatinine: PLAN: Improved (3) DANA (acute kidney injury): PLAN: Due to hemodynamic changes, getting better. (4) Kidney transplant recipient: PLAN: Baseline creatinine is around 1.4-1.6. improving
[2022-11-07 15:02] VITALS: BP 143/93; PULSE 72; RESP 18; TEMP 36.9; O2SAT 95
--- NOTE | 2022-11-07 15:50 | TREXTCAR_ITS ---
Diet Diet Order/Speech Therapy: 11/04/22 12:15 Diet: Cardiac - Heart Healthy Type of Dietary Supplement:: Sharon Breakfast Is pt able to select menu?: Yes Diet Comments: 240ml chon CIB with 2% milk at breakfast daily Routine Orders/Code Status Enema Type: Fleetz Enema Frequency: Daily PRN Suppository Frequency: Daily PRN Therapies Weight Bearing: Weight bearing as tolerated Physical Therapy: Eval and Treat Occupational Therapy: Eval and Treat Problem/Diagnosis (1) Hypertensive emergency: Status: Acute Code(s): I16.1 - Hypertensive emergency (2) Elevated serum creatinine: Status: Acute Code(s): R79.89 - Other specified abnormal findings of blood chemistry (3) DANA (acute kidney injury): Status: Acute Code(s): N17.9 - Acute kidney failure, unspecified (4) Kidney transplant recipient: Status: Chronic Code(s): Z94.0 - Kidney transplant status Allergies/Procedures Done in Hospital Allergies metformin Allergy (Verified 11/02/22 12:43) Other pregabalin [From Lyrica] Allergy (Verified 11/02/22 12:43) Other TREMORS Procedures: None Type of Care/Length of Stay Estimated LOS: Convalescent Care Less Than 30 days Type of Care Needed: Skilled Rehab Potential: Fair Prognosis: Fair Additional Orders/Day of Discharge Day of Discharge: 11/07/22 Dietary and Speech Recommendations Dietitian Recommendations/Changes: Continue cardiac diet and 240ml chon carnation instant breakfast w/ breakfast meal daily. Additional ONS as needed if PO regresses with meals. Discharge Plan Admission Admit Date/Time: 11/03/22 15:14 Primary Reason for Your Visit: hypertensive urgency Attending Provider: Belen Garcia Primary Care Provider: Shanelle Luz Consulting Providers: Helen Mcadams ; Audrey Kelly ; Alvarado Chávez Discharge Orders/Prescriptions Prescriptions: Continued pantoprazole [Protonix] 40 mg tablet,delayed release (DR/EC) 40 mg PO DAILY aspirin [Adult Low Dose Aspirin] 81 mg tablet,delayed release (DR/EC) 81 mg PO DAILY zafirlukast [Accolate] 20 mg tablet 20 mg PO Q12H Rx Instructions: administer 1 hour before or 2 hours after food or meals tacrolimus 1 mg capsule,extended release 24hr 1 mg PO BID Label Comments: REJECTION MED oxybutynin chloride 10 MG tablet extended release 24hr 10 mg PO DAILY prednisone 5 MG tablet 5 mg PO DAILY sulfamethoxazole-trimethoprim 400-80 mg tablet 2 tab PO Rx Instructions: take one tablet po every monday, monday, monday oxycodone 5 mg Tablet 5 mg PO TID PRN (Reason: pain) 3 Days Qty: 12 0RF mycophenolate mofetil 250 mg capsule 500 mg PO BID Label Comments: take 2 capsules by mouth twice a day clopidogrel 75 mg tablet 75 mg PO DAILY allopurinol 300 mg tablet 300 mg PO DAILY nystatin [Nystop] 100,000 unit/gram Powder 1 applic TOPICAL BID atorvastatin 40 mg tablet 40 mg PO QHS Qty: 90 3RF carvedilol [Coreg] 25 mg tablet 50 mg PO BID Qty: 360 3RF Rx Instructions: must administer with a meal/food doxazosin 8 mg tablet 8 mg PO QAM Qty: 90 3RF nifedipine [Procardia XL] 90 mg tablet extended release 24hr 90 mg PO DAILY Qty: 90 3RF Discontinued spironolactone 50 mg tablet 50 mg PO DAILY Qty: 60 3RF Referrals / Follow Up: Helen Mcadams MD [Med Staff - Consulting] - Within 1 Week Shanelle Luz DO [Primary Care Provider] - Within 2 Weeks Disposition Disposition (needs filled in before D/C Order can be placed): [facility] Facility
--- NOTE | 2022-11-07 15:52 | PCM.DC.SUM ---
Providers Date of Admission: 11/03/22 Date of Discharge: 11/07/22 Primary Care Physician: Dr. Shanelle Luz, Consultations 11/02/22 19:13 Consult: Nephrology Routine Consulting Provider: Helen Mcadams Reason for Consult: Hypertensive emergency with history of renal transplant EMERGENT Consult: No MD Notified: Yes Date Notified: 11/03/22 Time Notified: 06:32 Method of Notification: Answering Service Reason For Visit: HYPERTENSIVE EMERGENCY Diagnosis Discharge Diagnosis (1) Hypertensive emergency: Status: Acute Code(s): I16.1 - Hypertensive emergency (2) Elevated serum creatinine: Status: Acute Code(s): R79.89 - Other specified abnormal findings of blood chemistry (3) DANA (acute kidney injury): Status: Acute Code(s): N17.9 - Acute kidney failure, unspecified (4) Kidney transplant recipient: Status: Chronic Code(s): Z94.0 - Kidney transplant status Medications at Discharge Home Medications pantoprazole 40 mg tablet,delayed release (Protonix) 40 mg PO DAILY gerd 12/20/19 oxybutynin chloride 10 mg tablet,extended release 24 hr 10 mg PO DAILY bladder 03/29/20 prednisone 5 mg tablet 5 mg PO DAILY anti rejection 03/29/20 aspirin 81 mg tablet,delayed release (Adult Low Dose Aspirin) 81 mg PO DAILY HEART HEALTH 04/15/20 tacrolimus 1 mg capsule,extended release 24 hr 1 mg PO BID liver transplant 04/15/20 zafirlukast 20 mg tablet (Accolate) 20 mg PO Q12H BREATHING 04/15/20 sulfamethoxazole 400 mg-trimethoprim 80 mg tablet 2 tab PO MOWEFR preventative atb 07/17/20 oxycodone 5 mg tablet 5 mg PO TID PRN pain 3 days #12 tabs 10/06/21 atorvastatin 40 mg tablet 40 mg PO QHS CHOLESTEROL #90 tabs 01/26/22 carvedilol 25 mg tablet (Coreg) 50 mg PO BID this is a dose increase #360 tabs 09/26/22 doxazosin 8 mg tablet 8 mg PO QAM bp #90 tabs 10/06/22 nifedipine 90 mg tablet,extended release 24 hr (Procardia XL) 90 mg PO DAILY HEART #90 tabs 10/10/22 allopurinol 300 mg tablet 300 mg PO DAILY GOUT 11/02/22 clopidogrel 75 mg tablet 75 mg PO DAILY BLOOD THINNER 11/02/22 mycophenolate mofetil 250 mg capsule 500 mg PO BID 11/02/22 nystatin 100,000 unit/gram topical powder (Nystop) 1 applic topical BID 11/02/22 Hospital Course Operations None Procedures 2-D Echocardiogram Summary of Care Provided Minutes Spent on Discharge: 50 Hospital Course: Patient is a 71-year-old male with a past medical history as outlined was admitted through the ED on 11/02/2022 with a complaint of dizziness and confusion. History was mainly given by his . He had been brought in on account of his blood pressure to be noted to be markedly elevated with associated dizziness and vomiting. When checked the blood pressure at home his blood pressure was at 170/105. He had no other focal neurological weakness. In the ED his blood pressure was 205/114. Troponin was [address] of the brain showed no acute intracranial pathology and showed chronic involutional changes. 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 His creatinine was also noted to be elevated at 1.76. He was given IV medication for his blood pressure which helped to trend downwards. He was admitted and managed for hypertensive emergency. He was continued on his Coreg and nifedipine. Aldactone was held. Nephrology was consulted. He did have a history of kidney transplant and tacrolimus level was checked which was not elevated. His kidney function gradually improved and he did much better. Hypertensive emergency also resolved. There was concern about worsening renal artery stenosis with respect to his transplanted kidney and the renal artery duplex was considered. However since kidney function improved nephrology recommended that he could go and this could be done on outpatient basis. His Aldactone was discontinued. He had chlorthalidone added on but creatinine jumped to this was also discontinued. He remained stable and was discharged home on 11/07/2022. He is to follow-up with his primary care doctor and nephrology. Patient seen and examined prior to discharge. He had no active complaints and had an uneventful night. Review of systems otherwise negative. Labs and vitals reviewed. Home medication reviewed and reconciled. Physical Exam Const alert, oriented x3, no apparent distress and well nourished Constitutional Narrative: obese General Appearance: cooperative and comfortable Orientation / Consciousness: awake Exam Limitations: no limitations HEENT normocephalic, head/scalp atraumatic and moist oral mucous membranes; Negative for hearing grossly normal bilaterally Mouth: oral and palatal mucosa normal Eyes PERRL, EOMs intact bilaterally and conjunctivae normal Eyes Narrative: No scleral icterus Neck no lymphadenopathy, supple, no JVD and no carotid bruits Neck Narrative: Trachea midline, no thyroid enlargement Resp normal respiratory effort, no retractions, no use of accessory muscles and clear to auscultation bilaterally Auscultation: Negative for rales, rhonchi or wheezes Cardio regular rate, regular rhythm, S1 normal heart sound, S2 normal heart sound, no murmurs, no rub and no clicks; Negative for no gallops Cardio Narrative: S4 gallop present GI normal to inspection, nondistended, normoactive bowel sounds, soft to palpation and non-tender Extremity Extremity Narrative: Trace bilateral lower extremity edema that is pitting, 2+ pedal pulses, 2+ radial pulses Skin no rashes or lesions noted, no wounds, no jaundice, no petechiae and no mottling Neuro oriented x3, CN's II-XII intact bilaterally, moves all extremities and no focal motor deficits Neuro Narrative: Generalized weakness noted from debility but no focal deficits Speech: speech normal Psych affect normal Weight / BMI Weight Weight: 301 lb 13.005 oz Body Mass Index (BMI) 44.5 ABG / Lab / Microbiology Data Result Diagrams: 11/07/22 04:26 11/07/22 04:26 Laboratory: Laboratory Results - last 24 hr 11/07/22 04:26: WBC 8.8, RBC 4.66, Hgb 13.5, Hct 41.7, MCV 89.5, MCH 29.0, MCHC 32.4, RDW Std Deviation 41.2, RDW Coeff of Leonie 12.7, Plt Count 154, MPV 11.0, Immature Gran % (Auto) 0.300, Neut % (Auto) 59.9, Lymph % (Auto) 29.7, [place] % (Auto) 7.4, Eos % (Auto) 2.5, Baso % (Auto) 0.2, Absolute Neuts (auto) 5.3, Absolute Lymphs (auto) 2.62, Nucleated RBC % 0 11/07/22 04:26: Sodium 139, Potassium 4.6, Chloride 109 H, Carbon Dioxide 21.0, Anion Gap 9, BUN 39 H, Creatinine 1.68 H, Estim Creat Clear Calc 40.91, Est GFR (MDRD) Af Amer 52 L, Est GFR (MDRD) Non-Af 43 L, BUN/Creatinine Ratio 23.2 H, Glucose 128 H, Calcium 9.3 Microbiology: Microbiology 11/02/22 16:25 Urine, Clean Catch Urine Culture - Final Mixed Gram Positive Organisms 11/03/22 12:10 Stool Enteric Bacteriology - Final 11/03/22 12:10 Stool C. difficile DNA Amplification - Final D/C Instructions Discharge Diet: Low fat / Low cholesterol Discharge Activity: Return to Normal Activity Weight Bearing Status: Weight bearing as tolerated Call your doctor if you observe: Fever of 101 or Higher, Shortness of breath, Dizziness, Swelling in the ankles and Chest pain Meaningful Use Info Meaningful Use Diagnoses (Choose all that apply): None applicable Discharge Plan Admission Admit Date/Time: 11/03/22 15:14 Primary Reason for Your Visit: hypertensive urgency Attending Provider: Belen Garcia Primary Care Provider: Shanelle Luz Consulting Providers: Helen Mcadams ; Audrey Kelly ; Alvarado Chávez Discharge Orders/Prescriptions Prescriptions: Continued pantoprazole [Protonix] 40 mg tablet,delayed release (DR/EC) 40 mg PO DAILY aspirin [Adult Low Dose Aspirin] 81 mg tablet,delayed release (DR/EC) 81 mg PO DAILY zafirlukast [Accolate] 20 mg tablet 20 mg PO Q12H Rx Instructions: administer 1 hour before or 2 hours after food or meals tacrolimus 1 mg capsule,extended release 24hr 1 mg PO BID Label Comments: REJECTION MED oxybutynin chloride 10 MG tablet extended release 24hr 10 mg PO DAILY prednisone 5 MG tablet 5 mg PO DAILY sulfamethoxazole-trimethoprim 400-80 mg tablet 2 tab PO MOWEFR Rx Instructions: take one tablet po every monday, monday, monday oxycodone 5 mg Tablet 5 mg PO TID PRN (Reason: pain) 3 Days Qty: 12 0RF mycophenolate mofetil 250 mg capsule 500 mg PO BID Label Comments: take 2 capsules by mouth twice a day clopidogrel 75 mg tablet 75 mg PO DAILY allopurinol 300 mg tablet 300 mg PO DAILY nystatin [Nystop] 100,000 unit/gram Powder 1 applic TOPICAL BID atorvastatin 40 mg tablet 40 mg PO QHS Qty: 90 3RF carvedilol [Coreg] 25 mg tablet 50 mg PO BID Qty: 360 3RF Rx Instructions: must administer with a meal/food doxazosin 8 mg tablet 8 mg PO QAM Qty: 90 3RF nifedipine [Procardia XL] 90 mg tablet extended release 24hr 90 mg PO DAILY Qty: 90 3RF Discontinued spironolactone 50 mg tablet 50 mg PO DAILY Qty: 60 3RF Referrals / Follow Up: Helen Mcadams MD [Med Staff - Consulting] - Within 1 Week Shanelle Luz DO [Primary Care Provider] - Within 2 Weeks Disposition Disposition (needs filled in before D/C Order can be placed): [facility] Facility Charges/Coding Visit Charges Inpatient E&M: 94643 Disch Hosp >30min
[2022-11-07 19:00] LABS: Tacrolimus (FK506) 9.5 ng/mL (2.0-20.0)
== END 2022-11-07 17:55 | disposition skilled nursing facility (03) | DRG 78 ==
LOC: ED 17:26 → PCU 11-03 02:45
PROVIDERS: Family Medicine; Admitting Provider Internal Medicine; Emergency Provider Emergency Medicine; PCP Internal Medicine; Visit Provider Student in an Organized Health Care Education/Training Program
DX: I67.4 Hypertensive encephalopathy (principal); I16.1 Hypertensive emergency; I13.0 Hypertensive heart and chronic kidney disease with heart failure and stage 1 through stage 4 chronic kidney disease, or unspecified chronic kidney disease; N17.9 Acute kidney failure, unspecified; I50.32 Chronic diastolic (congestive) heart failure; Z68.41 Body mass index [BMI] 40.0-44.9, adult; I45.2 Bifascicular block; Z94.0 Kidney transplant status; I70.1 Atherosclerosis of renal artery; N18.32 Chronic kidney disease, stage 3b; E66.01 Morbid (severe) obesity due to excess calories; E78.5 Hyperlipidemia, unspecified; K21.9 Gastro-esophageal reflux disease without esophagitis; G47.33 Obstructive sleep apnea (adult) (pediatric); J45.909 Unspecified asthma, uncomplicated; I25.10 Atherosclerotic heart disease of native coronary artery without angina pectoris; I16.0 Hypertensive urgency; G89.4 Chronic pain syndrome; Z79.82 Long term (current) use of aspirin; R53.81 Other malaise; Z86.73 Personal history of transient ischemic attack (TIA), and cerebral infarction without residual deficits; R79.89 Other specified abnormal findings of blood chemistry; N40.1 Benign prostatic hyperplasia with lower urinary tract symptoms; R33.9 Retention of urine, unspecified
CPT/HCPCS: 36415; 70450; 80048; 80053; 80197; 81001; 83735; 84100; 84443; 84484; 85025; 87086; 87088; 87426; 87493; 87506; 93005; 93975; 94668; 97110; 97162; 97166; 97530; 97535; 97802; 99285; J7030; J7120; A4216; J2405

== ENCOUNTER 2022-11-07 18:18 | Inpatient (IN) | payer MEDICARE, OTHER, SELFPAY ==
[2020-07-29 07:35] VITALS: BMI 46.7
[2022-11-07 18:25] VITALS: BP 162/97; PULSE 70; RESP 18; TEMP 36.5; O2SAT 95; BMI 42.5
--- NOTE | 2022-11-07 19:39 | HP.PCM_ITS ---
HPI - General General Date of Admission: 11/07/22 Date of Service: 11/08/22 Chief Complaint: Here for rehabilitation. HPI Narrative 11/02/2022 TOM GALLAGHER, is a 71 Male who presents to [facility] Emergency Department with generalized illness. 11/02/2022 EKG sinus bradycardia with premature supraventricular contractions, right bundle branch block, left anterior fascicular block, bifascicular block. Confused, foggy in the brain for 2-3 days. Dizzy, vomited yesterday. Blood pressure 170/105 at home, difficult to control recently. Hydralazine 10mg given, ineffective. Acute kidney injury treated with IV fluids, UA negative for infection. 11/02/2022 Admit to Hospital. History of kidney transplant, History liver transplant. Coreg 50mg bid, Nifedipine 90mg daily, Hydralazine PRN, Labetalol PRN, consult Renal for Hypertensive emergency. Gentle IV fluids, hold aldactone for dehydration. 11/03/2022 Blood pressure high, alert, but slow mentation. PT/OT for debility. CT head okay. 11/04/2022 Blood pressure better, confusion improved. Renal started chlorthalidone which [id number] blood pressure. 11/05/2022 Alert, but odd. Stop Chlorthalidone with creatinine 2.34, give IV fluids. Renal artery duplex to evaluate renal atery stenosis. PVR to rule out urinary retention. 11/06/2022 Mentation baseline. Creatinine improved to 1.91. Tacrolimus level okay. Aldactone discontinued. 11/07/2022 Admit to TCU with debility, here for rehabilitation, strengthening, prior to discharge home with . [facility] Medical History Anemia Asthma Atherosclerotic heart disease of [place] coronary artery without angina pectoris Chronic kidney disease, stage 3a Chronic nonalcoholic liver disease Chronic pain syndrome Cirrhosis of liver End stage renal failure on dialysis Essential (primary) hypertension GERD (gastroesophageal reflux disease) History of CVA (cerebrovascular accident) (06/2021) History of non-ST elevation myocardial infarction (NSTEMI) (03/30/20) Hydronephrosis Immunosuppression Left renal artery stenosis Morbid obesity Obstructive sleep apnea Osteoarthritis Renal calculi Segmental and somatic dysfunction of lumbar region Superficial thrombophlebitis TIA (transient ischemic attack) Home Medications pantoprazole 40 mg tablet,delayed release (Protonix) 40 mg PO DAILY gerd 12/20/19 [History Last Taken 10/01/21] oxybutynin chloride 10 mg tablet,extended release 24 hr 10 mg PO DAILY bladder 03/29/20 [History Last Taken 10/01/21] prednisone 5 mg tablet 5 mg PO DAILY anti rejection 03/29/20 [History Last Taken 10/01/21] aspirin 81 mg tablet,delayed release (Adult Low Dose Aspirin) 81 mg PO DAILY HEART HEALTH 04/15/20 [History Last Taken 10/01/21] tacrolimus 1 mg capsule,extended release 24 hr 1 mg PO BID liver transplant 04/15/20 [History Last Taken 10/01/21] zafirlukast 20 mg tablet (Accolate) 20 mg PO Q12H BREATHING 04/15/20 [History Last Taken 10/01/21] sulfamethoxazole 400 mg-trimethoprim 80 mg tablet 2 tab PO MOWEFR preventative atb 07/17/20 [History Last Taken 10/01/21] oxycodone 5 mg tablet 5 mg PO TID PRN pain 3 days #12 tabs 10/06/21 [Rx Last Taken Unknown] atorvastatin 40 mg tablet 40 mg PO QHS CHOLESTEROL #90 tabs 01/26/22 [Rx Last Taken 11/01/22] doxazosin 8 mg tablet 8 mg PO QAM bp #90 tabs 10/06/22 [Rx Last Taken Unknown] nifedipine 90 mg tablet,extended release 24 hr (Procardia XL) 90 mg PO DAILY HEART #90 tabs 10/10/22 [Rx Last Taken Unknown] allopurinol 300 mg tablet 300 mg PO DAILY GOUT 11/02/22 [History Last Taken Unk nown] clopidogrel 75 mg tablet 75 mg PO DAILY BLOOD THINNER 11/02/22 [History Last Taken Unknown] mycophenolate mofetil 250 mg capsule 500 mg PO BID Antirejection 11/02/22 [History Last Taken 11/02/22] nystatin 100,000 unit/gram topical powder (Nystop) 1 applic topical BID Skin 11/02/22 [History Last Taken Unknown] carvedilol 25 mg tablet (Coreg) 50 mg PO BID BP 11/07/22 [History Last Taken Unknown] Allergy/AdvReac Type Severity Reaction Status Date / Time metformin Allergy Other Verified 11/02/22 12:43 pregabalin [From Lyrica] Allergy Other Verified 11/02/22 12:43 Family History Other PGM diabetes Surgical History History of knee replacement History of left heart catheterization (04/03/20) History of stent insertion of renal artery (2014) Kidney transplant recipient (07/13/12) Kidney transplant recipient Liver transplant recipient (07/13/12) Social History household members: spouse Smoking Status: Never smoker second hand exposure: No alcohol intake: never substance use type: does not use caffeine: Yes frequency: 3-4 times per week ROS Constitutional Constitutional: Denies chills, fever(s) or weight gain ENT HEENT: Denies headache(s), nasal congestion or nasal discharge Cardiovascular Cardiovascular: Denies chest pain or palpitations Respiratory/Chest Respiratory/Chest: Denies cough, excessive phlegm production or shortness of breath with exertion Gastrointestinal Gastrointestinal: Denies abdominal pain, nausea or vomiting Genitourinary Genitourinary: Denies dysuria Musculoskeletal Musculoskeletal: Denies joint pain or joint swelling Integumentary Integumentary: Denies rash or wounds Neurologic Neurologic: Denies focal weakness, numbness or tingling Psychiatric Psychiatric: Denies anxiety, auditory hallucinations, depression, homicidal ideation or suicidal ideation Vital Signs Vital Signs Vital Signs: 11/07/22 18:25 Temperature 97.7 F L Temperature Source Temporal Pulse Rate 70 Respiratory Rate 18 Blood Pressure 162/97 H Blood Pressure Mean 118 Blood Pressure Source Monitor Blood Pressure Position Semi-Fowlers Blood Pressure Location Right Arm Pulse Ox 95 Oxygen Delivery Method Room Air Weight Weight: 134.263 kg Body Mass Index (BMI) 42.5 Physical Exam Const alert General Appearance: cooperative HEENT normocephalic Eyes PERRL and EOMs intact bilaterally Neck supple, no JVD and no carotid bruits Resp normal respiratory effort, normal air movement and clear to auscultation bilaterally Cardio regular rate and regular rhythm GI normal to inspection, nondistended, normoactive bowel sounds, non-tender and non-distended Extremity normal capillary refill General Extremity: Negative for edema Skin no rashes or lesions noted General Skin Exam: no breakdown Psych affect normal Appearance: appropriate Results Lab / Micro Data Result Diagrams: 11/08/22 05:10 11/08/22 05:10 Assessment & Plan Assessment/Plan (1) Debility: (2) Hypertensive emergency: (3) Encephalopathy acute: (4) Elevated serum creatinine: (5) DANA (acute kidney injury): (6) GERD (gastroesophageal reflux disease): (7) Overactive bladder: (8) Gout: (9) Hyperlipidemia: (10) BPH (benign prostatic hyperplasia): (11) Coronary artery disease: (12) History of liver transplant: (13) History of kidney transplant: PLAN: Plan 71 year old male with below past medical history hospitalized for acute encephalopathy secondary to hypertensive emergency, complicated by acute kidney injury, admitted to TCU with debility, here for rehabilitation, strengthening, prior to discharge home with . * Debility - PT/OT. * Pain - Tylenol 1000mg q6h prn pain (1-5), Oxycodone 5mg q4h prn pain (6-10). * Bowel - senna/colace 1 tablet bid, Dulcolax 10mg pr x 1 prn, MOM 30ml po x 1 prn. * Adult immunization - Administer pneumonia vaccine, covid19 vaccine, flu vaccine as appropriate. * DVT prophylaxis - Hold, on dual antiplatelet therapy. * Hypertension - Coreg 50mg bid, Nifedipine XL 90mg daily. * Gout - Allopurinol 300mg daily. * Coronary artery disease - Coreg 50mg bid, Plavix 75mg daily, Aspirin 81mg daily. * Hyperlipidemia - Atorvastatin 40mg qhs. * BPH - Doxazosin 8mg daily. * Asthma - Singulair 10mg daily. * Kidney transplant/Liver transplant - Mycophenolate 500mg bid, Tacrolimus 1mg bid, Prednisone 5mg daily, Bactrim DS 1 tablet MWF. * Tinea Corporis - Nystatin powder topical bid. * GERD - Pantoprazole 40mg daily. * Overactive bladder - Detrol 2mg daily.
[2022-11-07 20:00] VITALS: O2SAT 92
[2022-11-07] MEDS: Atorvastatin Calcium 40 MG Tablet PO (21:38)
[2022-11-07] MEDS: Montelukast 10 MG Tablet PO (21:38)
[2022-11-08 06:00] LABS: Absolute Lymphocyte Count 2.67 X10^3/uL (0.83-4.51); Absolute Neutrophil Count 5.5 X10^3/uL (2.0-7.7); Basophil# 0.02 X10^3/uL; Basophil% 0.2 % (0-1); Eosinophil# 0.27 X10^3/uL; Eosinophils% 2.9 % (0-5); Hematocrit 40.8 % (40-54); Hemoglobin 13.6 g/dL (13.0-16.5); Lymphocyte # 2.67 X10^3/ul (0.83-4.51); Mean Corp Hgb Conc 33.3 g/dL (32-36); Mean Corpuscular Hgb 29.2 pg (27.0-32.0); Mean Corpuscular Volume 87.7 fL (80-94); Mean Platelet Vol. 10.6 fl (6.2-12.0); Monocyte# 0.71 X10^3/uL; Monocyte% 7.7 % (0-10); NRBC Flagged by Analyzer 0 % (0-5); Neutrophil # 5.51 X10^3/uL (2.7-7.7); Neutrophil % 59.8 % (47-70); Platelet Count 153 K/mm3 (150-450); RBC Distribution Width CV 12.6 % (11.6-14.6); Red Blood Count 4.65 M/mm3 (4.6-6.2); White Blood Count 9.2 K/mm3 (4.4-11.0)
[2022-11-08] MEDS: Pantoprazole Sodium 40 MG Tablet PO (06:11)
[2022-11-08] MEDS: Tacrolimus Anhydrous 1 MG Capsule PO ×2 (06:13→18:10)
[2022-11-08] MEDS: NIFEdipine 90 MG Tablet PO (06:18)
[2022-11-08] MEDS: Mycophenolate Mofetil 250 MG Capsule 500 MG PO ×2 (06:18→18:11)
[2022-11-08] MEDS: Clopidogrel Bisulfate 75 MG Tablet PO (06:18)
[2022-11-08] MEDS: Tolterodine Tartrate 2 MG CAP.SA PO (06:19)
[2022-11-08] MEDS: Senna/Docusate Sodium 1 Tablet PO (06:19)
[2022-11-08] MEDS: Carvedilol 25 MG Tablet 50 MG PO ×2 (06:19→18:10)
[2022-11-08] MEDS: Nystatin Powder 15gm Bottle 1 APPLIC TOPICAL ×2 (06:20→18:04)
[2022-11-08] MEDS: Acetaminophen 500 MG Tablet 1000 MG PO ×3 (06:27→21:46)
[2022-11-08 06:47] LABS: Anion Gap 9 (5-15); BUN 41 mg/dL (7-18); BUN/Creat Ratio 23.6 RATIO (10-20); Calcium,Total 9.3 mg/dL (8.5-10.1); Chloride 108 mmol/L (98-107); Creatinine, Serum 1.74 mg/dL (0.70-1.30); EST Glomerular Filtration Rate 41 mL/min (>60); Est Glom Filt Rate - Afr Amer 50 mL/min (>60); Estimated Creatinine Clearance 40.79 ml/min; Glucose 125 mg/dL (74-106); Potassium 4.4 mmol/L (3.5-5.1); Sodium Level 140 mmol/L (136-145)
[2022-11-08] MEDS: Allopurinol 300 MG Tablet PO (07:42)
[2022-11-08] MEDS: predniSONE 5 MG Tablet PO (07:42)
[2022-11-08] MEDS: Aspirin E.C. 81 MG Tablet PO (07:42)
[2022-11-08] MEDS: Menthol/Lanolin/Calamine/Znox 113 GM Tube 1 APPLIC TOPICAL ×2 (10:17→18:04)
[2022-11-08] MEDS: Doxazosin 4 MG Tablet 8 MG PO (10:18)
[2022-11-08] MEDS: Tuberculin,Purif.prot.deriv. 50 TU/ML Vial 0.1 ML ID (10:19)
[2022-11-08] MEDS: oxyCODONE 5 MG Tablet PO ×2 (10:23→21:45)
[2022-11-08 10:28] VITALS: BP 136/89; PULSE 69
[2022-11-08 14:40] VITALS: BP 155/99; PULSE 69; RESP 16; TEMP 36.5; O2SAT 95
--- NOTE | 2022-11-08 15:39 | CASEMGMT ---
Social Work Met with patient to complete initial assessment. Introduced self and role. Verified contacts. Discussed code status and MOLST form. Pt confirms DNR-CCA, no intubation. Bracelet placed but order needs updated. Nursing notified. MOLST placed in Dr. choi. Educated to Medicare benefit. Encouraged pt to contact secondary insurance to ensure copay coverage. Pt's goal is to return home at [facility] with . SW to continue to follow for DC planning. Alanna Munguia, ELECTROENCEPHALOGRAPHIC TECHNICIAN SKIVER MACHINE
[2022-11-08 16:01] VITALS: BMI 42.5
--- NOTE | 2022-11-08 20:11 | CPS ---
pt has 2 l/m bleed into own machine at night
[2022-11-08] MEDS: Montelukast 10 MG Tablet PO (21:35)
[2022-11-08] MEDS: Atorvastatin Calcium 40 MG Tablet PO (21:35)
[2022-11-08 22:13] VITALS: PULSE 64; RESP 18; O2SAT 94
[2022-11-09 04:35] VITALS: BP 155/91; PULSE 60
[2022-11-09] MEDS: Tacrolimus Anhydrous 1 MG Capsule PO ×2 (04:37→17:16)
[2022-11-09] MEDS: Nystatin Powder 15gm Bottle 1 APPLIC TOPICAL ×2 (04:38→17:21)
[2022-11-09] MEDS: Menthol/Lanolin/Calamine/Znox 113 GM Tube 1 APPLIC TOPICAL ×2 (04:38→17:21)
[2022-11-09] MEDS: Mycophenolate Mofetil 250 MG Capsule 500 MG PO ×2 (04:38→17:15)
[2022-11-09] MEDS: Tolterodine Tartrate 2 MG CAP.SA PO (04:39)
[2022-11-09] MEDS: NIFEdipine 90 MG Tablet PO (04:39)
[2022-11-09] MEDS: Clopidogrel Bisulfate 75 MG Tablet PO (04:39)
[2022-11-09] MEDS: Pantoprazole Sodium 40 MG Tablet PO (04:40)
[2022-11-09] MEDS: Carvedilol 25 MG Tablet 50 MG PO ×2 (04:40→17:15)
[2022-11-09] MEDS: Senna/Docusate Sodium 1 Tablet PO ×2 (04:40→17:17)
[2022-11-09] MEDS: Acetaminophen 500 MG Tablet 1000 MG PO ×2 (04:55→21:17)
--- NOTE | 2022-11-09 07:46 | PHA.CONS_ITS ---
TCU RX Drug Regimen Review Subjective: TCU Admission. 71 YOM presented to the ER with generalized illness. Hospitalized for acute encephalopathy secondary to hypertensive emergency, complicated by acute kidney injury. Admitted to TCU with debility for strengthening and rehabilitation. Objective: Allergies metformin Allergy (Verified 11/02/22 12:43) Other pregabalin [From Lyrica] Allergy (Verified 11/02/22 12:43) Other TREMORS Current Medications Generic Name Dose Route Start Last Admin Trade Name Freq PRN Reason Stop Dose Admin Acetaminophen 1,000 mg 11/07/22 19:58 11/09/22 04:55 Acetaminophen 500 Mg Tablet PO 1,000 mg Q6H PRN PRN Administration Pain Score 1-5 Allopurinol 300 mg 11/08/22 08:00 11/08/22 07:42 Allopurinol 300 Mg Tablet PO 300 mg DAILYCM ALTAF Administration Aspirin 81 mg 11/08/22 08:00 11/08/22 07:42 Aspirin E.C. 81 Mg Tablet PO 81 mg DAILYCM ALTAF Administration Atorvastatin Calcium 40 mg 11/07/22 22:00 11/08/22 21:35 Atorvastatin Calcium 40 Mg Tablet PO 40 mg QHS ALTAF Administration Bisacodyl 10 mg 11/07/22 19:59 Bisacodyl 10 Mg Suppository RC X1 PRN CONSTIPATION Calamine/Phenol 1 applic 11/08/22 10:00 11/09/22 04:38 Menthol/Lanolin/Calamine/Znox 113 Gm Tube TOPICAL 1 applic BID ALTAF Administration Protocol Carvedilol 50 mg 11/08/22 06:00 11/09/22 04:40 Carvedilol 25 Mg Tablet PO 50 mg BID ALTAF Administration Clopidogrel Bisulfate 75 mg 11/08/22 06:00 11/09/22 04:39 Clopidogrel Bisulfate 75 Mg Tablet PO 75 mg DAILY ALTAF Administration Doxazosin Mesylate 8 mg 11/08/22 10:00 11/08/22 10:18 Doxazosin 4 Mg Tablet PO 8 mg QAM ALTAF Administration Magnesium Hydroxide 30 ml 11/07/22 19:59 Magnesium Hydroxide 30 Ml Udc PO X1 PRN Constipation Montelukast Sodium 10 mg 11/07/22 22:00 11/08/22 21:35 Montelukast 10 Mg Tablet PO 10 mg QHS ALTAF Administration Mycophenolate Mofetil 500 mg 11/08/22 06:00 11/09/22 04:38 Mycophenolate Mofetil 250 Mg Capsule PO 500 mg BID ALTAF Administration Nifedipine 90 mg 11/08/22 06:00 11/09/22 04:39 Nifedipine 90 Mg Tablet PO 90 mg DAILY ALTAF Administration Nystatin 1 applic 11/08/22 06:00 11/09/22 04:38 Nystatin Powder 15gm Bottle TOPICAL 1 applic BID ALTAF Administration Protocol Oxycodone HCl 5 mg 11/07/22 20:00 11/08/22 21:45 Oxycodone 5 Mg Tablet PO 5 mg Q4H PRN PRN Administration Pain Score 6-10 Pantoprazole Sodium 40 mg 11/08/22 06:00 11/09/22 04:40 Pantoprazole Sodium 40 Mg Tablet PO 40 mg DAILY ALTAF Administration Prednisone 5 mg 11/08/22 08:00 11/08/22 07:42 Prednisone 5 Mg Tablet PO 5 mg DAILYCM ALTAF Administration Senna/Docusate Sodium 1 tablet 11/08/22 06:00 11/09/22 04:40 Senna/Docusate Sodium 1 Tablet PO 1 tablet BID ALTAF Administration Tacrolimus 1 mg 11/08/22 06:00 11/09/22 04:37 Tacrolimus Anhydrous 1 Mg Capsule PO 1 mg BID ALTAF Administration Tolterodine Tartrate 2 mg 11/08/22 06:00 11/09/22 04:39 Tolterodine Tartrate 2 Mg Cap.Sa PO 2 mg DAILY ALTAF Administration Trimethoprim/Sulfamethoxazole 1 tablet 11/09/22 08:00 Smz/Tmp Ds Tablet PO MOWEFR [facility] Tuberculin PPD 0.1 ml 11/15/22 10:00 Tuberculin,Purif.Prot.Deriv. 50 Tu/Ml Vial ID 11/15/22 10:01 X1 ONE Problem List (Last Reviewed 11/07/22 @ 19:[address] Robbie Anne MD) History of kidney transplant (Acute) History of liver transplant (Acute) Coronary artery disease (Acute) BPH (benign prostatic hyperplasia) (Acute) Hyperlipidemia (Acute) Gout (Acute) Overactive bladder (Acute) GERD (gastroesophageal reflux disease) (Acute) Debility (Acute) Hypertensive emergency (Acute) Elevated serum creatinine (Acute) DANA (acute kidney injury) (Acute) Encephalopathy acute (Acute) Vital Signs Temp Pulse Resp BP Pulse Ox O2 Del Method 97.7 F L 60 18 155/91 H 94 Room Air 11/08/22 14:40 11/09/22 04:35 11/08/22 22:13 11/09/22 04:35 11/08/22 22:13 11/08/22 22:13 Oxygen Delivery Method Room Air Weight: 134.717 kg Body Mass Index (BMI) 42.5 Sodium 140 mmol/L (136-145) 11/08/22 05:10 Potassium 4.4 mmol/L (3.5-5.1) 11/08/22 05:10 Chloride 108 mmol/L (98-107) H 11/08/22 05:10 Carbon Dioxide 23.0 mmol/L (21.0-32.0) 11/08/22 05:10 Anion Gap 9 (5-15) 11/08/22 05:10 BUN 41 mg/dL (7-18) H 11/08/22 05:10 Creatinine 1.74 mg/dL (0.70-1.30) H 11/08/22 05:10 Est GFR (MDRD) Af Amer 50 mL/min (>60) L 11/08/22 05:10 Est GFR (MDRD) Non-Af 41 mL/min (>60) L 11/08/22 05:10 BUN/Creatinine Ratio 23.6 RATIO (10-20) H 11/08/22 05:10 Glucose 125 mg/dL (74-106) H 11/08/22 05:10 Assessment/Plan: 1. Pain: acetaminophen 1000mg PO Q6H PRN pain 1-5 and oxycodone 5mg PO Q4H PRN pain 6-10. Resident has had 4 doses of acetaminophen for pain of 4,7 in the hip/sacrum/arm/back and 2 doses of oxycodone for same pain scores. Please continue to monitor for increased pain, PRN usage, constipation and respiratory depression. Last documented bowel movement 11/04. 2. Bowel: senna/docusate 1T PO BID, bisacodyl 10mg RC x 1 PRN constipation, and MOM 30mL PO x1 PRN constipation. No PRN doses used. Please continue to monitor for constipation (last documented bowel movement 11/04) and PRN usage. 3. Kidney/Liver transplant: mycophenolate 500mg PO BID, tacrolimus 1mg PO BID, prednisone 5mg PO DAILYCM and Bactrim DS 1T PO MWF. Please continue to monitor S/S of infection (black box warning with mycophenolate and tacrolimus), GI side effects, CBC, tacrolimus levels (last 11/02/22), urinary retention, potassium (last 4.4mmol/L), rash and renal function. 4. Hypertension/CAD: carvedilol 50mg PO BID, nifedipine XL 90mg PO daily, aspirin 81mg PO DAILYCM and clopidogrel 75mg PO daily. Please continue to monitor HR (last 60), BP (last 155/91), S/S of bleeding and hemoglobin (last 13.6g/dL). 5. Hyperlipidemia: atorvastatin 40mg PO QHS. Please consider ordering a lipid panel if clinically appropriate as the last lipid panel was from 10/09/21. Thanks. Please continue to monitor LFTs (last 11/03/22) and muscle pain. 6. Gout: allopurinol 300mg PO daily. Please continue to monitor for S/S of gout and renal function. 7. GERD: pantoprazole 40mg PO daily. Please continue to monitor for S/S of GERD and diarrhea (BEERs criteria due to increased risk of C. diff infections). 8. Asthma: montelukast 10mg PO daily. Please continue to monitor for S/S of asthma. 9. Overactive bladder/BPH: doxazosin 8mg PO daily and tolterodine 2mg PO daily. Please continue to monitor S/S of overactive bladder/BPH, BP, dementia/delirium (BEERs criteria for tolerodine). Assessment/Plan for indications treated with psychotropic medications: None Medical chart and medication regimen reviewed. The following medication irregularities or issues were identified: *1. Atorvastatin 40mg PO QHS. Please consider ordering a lipid panel if clinically appropriate as the last lipid panel was from 10/09/21. Thanks. Date of Note:: 11/09/22
[2022-11-09] MEDS: Smz/Tmp Ds Tablet 1 TABLET PO (08:44)
[2022-11-09] MEDS: Aspirin E.C. 81 MG Tablet PO (08:44)
[2022-11-09] MEDS: Doxazosin 4 MG Tablet 8 MG PO (08:44)
[2022-11-09] MEDS: predniSONE 5 MG Tablet PO (08:44)
[2022-11-09] MEDS: Allopurinol 300 MG Tablet PO (08:44)
--- NOTE | 2022-11-09 12:22 | NURSING ---
Storage Consultant Note; Activity Asset: Complete Tyrese is independent in his choice of daily activities. Tyrese prefers to be called Valdemar. Valdemar's will visit daily and bring him items he may need or want. Valdemar will watch TV, use his phone and table and read the newspaper. His main goal is to find out what is wrong and get back home.
--- NOTE | 2022-11-09 13:37 | NS ---
Provided written copy of daily specials/first choice menu w/ instructions on how to order. Res dislikes pickles and fresh, whole tomatoes.
[2022-11-09 14:01] VITALS: BP 143/80; PULSE 78; RESP 20; TEMP 36.9; O2SAT 90
--- NOTE | 2022-11-09 15:10 | NURSING ---
Pt reports to therapy that he feels like he needs his asthma medication. When this nurse goes to assess patient, he reports he takes a medication at home as needed for asthma and that he can feel his chest starting to tighten up. Patient has nothing PRN for asthma at this time. Lungs are clear at this time and spo2 92% on room air. Message left for regarding any medication he may take at home for this. Awaiting call back.
--- NOTE | 2022-11-09 15:17 | NURSING ---
Serina calls back and reports pt does not take anything at home PRN for asthma at home and just gets one routine medication but was unsure the name. Informed he is taking Singulair here for asthma. feels patient is just confused which is a little scary. Reassurance provided and reassured that patient has no symptoms of difficulty breathing.
--- NOTE | 2022-11-09 15:31 | CHAPLAIN ---
Type of Pastoral Visit _x__ Initial Visit ___ Follow-up Visit ___ On-call Visit ___ General Patient Visit ___ Spiritual Assessment ___ Family Conference ___ Bereavement ___ Rapid Response ___ Code Blue ___ Other (describe below) Pastoral Care Referral From _x__ Patient ___ Family ___ Nurse ___ Physician ___ Cigar Packer And Picker ___ Field Instructor ___ Other (describe below) Sacrament/Intervention _x__ Active listening ___ Anointing ___ Protestant ___ Bereavement ___ Communion ___ Mary exploration ___ _x__ Life review _x__ Prayer ___ Reconciliation ___ Sacrament of Sick _x__ Supportive presence ___ Wedding ___ Other (describe below) Pastoral Comments introduced self and role of the neon glass blower to patient; pt responded that he normally does not need company or people to talk with; pt did give some life review revolving around his work life when asked about it; pt says he has no particular needs but that it was nice to have that offered
[2022-11-09] MEDS: oxyCODONE 5 MG Tablet PO (17:14)
--- NOTE | 2022-11-09 18:30 | NURSING ---
calls back after to talking to patient and they remembered the name of asthma medication, which was Zafirlukast. Reassurance provided that this medication is similar to what pt is receiving here. and pt feel medication at home more effective and taking dose BID and want to Dr. Navarro to be made aware. Dr. Navarro made aware with no changes. Montelukast is the interchange for Zafirlukast.
[2022-11-09 20:42] VITALS: PULSE 70; RESP 18; O2SAT 93
[2022-11-09] MEDS: Atorvastatin Calcium 40 MG Tablet PO (21:18)
[2022-11-09] MEDS: Montelukast 10 MG Tablet PO (21:18)
[2022-11-10] MEDS: Carvedilol 25 MG Tablet 50 MG PO ×2 (06:16→17:24)
[2022-11-10] MEDS: Senna/Docusate Sodium 1 Tablet PO ×2 (06:16→17:24)
[2022-11-10] MEDS: Pantoprazole Sodium 40 MG Tablet PO (06:16)
[2022-11-10] MEDS: Mycophenolate Mofetil 250 MG Capsule 500 MG PO ×2 (06:17→17:24)
[2022-11-10] MEDS: NIFEdipine 90 MG Tablet PO (06:17)
[2022-11-10] MEDS: Tacrolimus Anhydrous 1 MG Capsule PO ×2 (06:17→17:24)
[2022-11-10] MEDS: Nystatin Powder 15gm Bottle 1 APPLIC TOPICAL ×2 (06:17→17:25)
[2022-11-10] MEDS: Clopidogrel Bisulfate 75 MG Tablet PO (06:17)
[2022-11-10] MEDS: Tolterodine Tartrate 2 MG CAP.SA PO (06:17)
[2022-11-10] MEDS: Menthol/Lanolin/Calamine/Znox 113 GM Tube 1 APPLIC TOPICAL ×2 (06:18→17:25)
[2022-11-10] MEDS: oxyCODONE 5 MG Tablet PO (06:22)
[2022-11-10] MEDS: Acetaminophen 500 MG Tablet 1000 MG PO ×2 (06:23→20:58)
[2022-11-10] MEDS: predniSONE 5 MG Tablet PO (07:37)
[2022-11-10] MEDS: Aspirin E.C. 81 MG Tablet PO (07:37)
[2022-11-10] MEDS: Allopurinol 300 MG Tablet PO (07:37)
--- NOTE | 2022-11-10 08:07 | NURSING ---
Pt off unit for Dr. casiano at [facility].
[2022-11-10 08:32] VITALS: PULSE 62; O2SAT 92
[2022-11-10] MEDS: Doxazosin 4 MG Tablet 8 MG PO (09:46)
[2022-11-10 09:48] VITALS: BP 129/86; PULSE 63
[2022-11-10 14:14] VITALS: BP 150/91; PULSE 62; RESP 16; TEMP 36.1; O2SAT 95
[2022-11-10 17:30] VITALS: BP 158/94; PULSE 67
--- NOTE | 2022-11-10 18:52 | NURSING ---
Dr. Beckman called this nurse and will be up to see pt sometime next week.
[2022-11-10] MEDS: Atorvastatin Calcium 40 MG Tablet PO (20:59)
[2022-11-10] MEDS: Montelukast 10 MG Tablet PO (20:59)
[2022-11-11] MEDS: Senna/Docusate Sodium 1 Tablet PO ×2 (04:01→18:35)
[2022-11-11] MEDS: Pantoprazole Sodium 40 MG Tablet PO (04:01)
[2022-11-11] MEDS: Tacrolimus Anhydrous 1 MG Capsule PO ×2 (04:02→18:32)
[2022-11-11] MEDS: Carvedilol 25 MG Tablet 50 MG PO ×2 (04:02→18:34)
[2022-11-11] MEDS: Tolterodine Tartrate 2 MG CAP.SA PO (04:02)
[2022-11-11] MEDS: Clopidogrel Bisulfate 75 MG Tablet PO (04:02)
[2022-11-11] MEDS: NIFEdipine 90 MG Tablet PO (04:03)
[2022-11-11] MEDS: Mycophenolate Mofetil 250 MG Capsule 500 MG PO ×2 (04:03→18:32)
[2022-11-11] MEDS: Acetaminophen 500 MG Tablet 1000 MG PO ×2 (04:05→12:39)
[2022-11-11] MEDS: Menthol/Lanolin/Calamine/Znox 113 GM Tube 1 APPLIC TOPICAL ×2 (04:10→18:36)
[2022-11-11] MEDS: Nystatin Powder 15gm Bottle 1 APPLIC TOPICAL ×2 (04:11→18:33)
[2022-11-11] MEDS: Aspirin E.C. 81 MG Tablet PO (09:06)
[2022-11-11] MEDS: Allopurinol 300 MG Tablet PO (09:06)
[2022-11-11] MEDS: Doxazosin 4 MG Tablet 8 MG PO (09:06)
[2022-11-11] MEDS: predniSONE 5 MG Tablet PO (09:07)
[2022-11-11] MEDS: Smz/Tmp Ds Tablet 1 TABLET PO (09:08)
[2022-11-11] MEDS: oxyCODONE 5 MG Tablet PO (09:17)
--- NOTE | 2022-11-11 12:36 | NURSING ---
pt was sitting in chair. Finished with lunch and wants to go back to bed. My back is hurting and this chair is pinching my back This RN assisted pt back into bed. Call light in reach.
--- NOTE | 2022-11-11 13:56 | CASEMGMT ---
BIMS and PHQ9 interviews completed on this date for MDS assessment. BIMS score PHQ9 score 09/30. VANESSA Lozano
[2022-11-11 16:00] VITALS: BP 144/91; PULSE 71; RESP 16; TEMP 36.7; O2SAT 92
[2022-11-11] MEDS: Atorvastatin Calcium 40 MG Tablet PO (21:11)
[2022-11-11] MEDS: Montelukast 10 MG Tablet PO (21:11)
[2022-11-11 22:22] VITALS: PULSE 60; RESP 18; O2SAT 93
[2022-11-12] MEDS: Acetaminophen 500 MG Tablet 1000 MG PO ×2 (04:18→17:10)
[2022-11-12] MEDS: Mycophenolate Mofetil 250 MG Capsule 500 MG PO ×2 (04:19→17:12)
[2022-11-12] MEDS: Pantoprazole Sodium 40 MG Tablet PO (04:19)
[2022-11-12] MEDS: NIFEdipine 90 MG Tablet PO (04:19)
[2022-11-12] MEDS: Senna/Docusate Sodium 1 Tablet PO ×2 (04:19→17:13)
[2022-11-12] MEDS: Tolterodine Tartrate 2 MG CAP.SA PO (04:20)
[2022-11-12] MEDS: Clopidogrel Bisulfate 75 MG Tablet PO (04:20)
[2022-11-12] MEDS: Carvedilol 25 MG Tablet 50 MG PO ×2 (04:21→17:12)
[2022-11-12] MEDS: Menthol/Lanolin/Calamine/Znox 113 GM Tube 1 APPLIC TOPICAL ×2 (04:21→17:19)
[2022-11-12] MEDS: Nystatin Powder 15gm Bottle 1 APPLIC TOPICAL ×2 (04:21→17:18)
[2022-11-12] MEDS: Tacrolimus Anhydrous 1 MG Capsule PO ×2 (04:21→17:13)
[2022-11-12] MEDS: Allopurinol 300 MG Tablet PO (07:53)
[2022-11-12] MEDS: Aspirin E.C. 81 MG Tablet PO (07:54)
[2022-11-12] MEDS: predniSONE 5 MG Tablet PO (07:54)
[2022-11-12] MEDS: oxyCODONE 5 MG Tablet PO ×3 (09:06→21:51)
[2022-11-12] MEDS: Doxazosin 4 MG Tablet 8 MG PO (10:50)
[2022-11-12 16:00] VITALS: BP 131/86; PULSE 73; RESP 16; TEMP 36.8; O2SAT 94
[2022-11-12] MEDS: Atorvastatin Calcium 40 MG Tablet PO (21:50)
[2022-11-12] MEDS: Montelukast 10 MG Tablet PO (21:51)
[2022-11-13 06:55] VITALS: BP 163/92; PULSE 59
[2022-11-13] MEDS: Nystatin Powder 15gm Bottle 1 APPLIC TOPICAL ×2 (06:59→18:19)
[2022-11-13] MEDS: Acetaminophen 500 MG Tablet 1000 MG PO ×2 (07:00→17:57)
[2022-11-13] MEDS: oxyCODONE 5 MG Tablet PO ×2 (07:00→23:11)
[2022-11-13] MEDS: NIFEdipine 90 MG Tablet PO (07:01)
[2022-11-13] MEDS: Senna/Docusate Sodium 1 Tablet PO ×2 (07:01→17:54)
[2022-11-13] MEDS: Tolterodine Tartrate 2 MG CAP.SA PO (07:01)
[2022-11-13] MEDS: Pantoprazole Sodium 40 MG Tablet PO (07:01)
[2022-11-13] MEDS: Clopidogrel Bisulfate 75 MG Tablet PO (07:01)
[2022-11-13] MEDS: Tacrolimus Anhydrous 1 MG Capsule PO ×2 (07:02→17:53)
[2022-11-13] MEDS: Mycophenolate Mofetil 250 MG Capsule 500 MG PO ×2 (07:02→17:53)
[2022-11-13] MEDS: Menthol/Lanolin/Calamine/Znox 113 GM Tube 1 APPLIC TOPICAL ×2 (07:04→18:20)
[2022-11-13] MEDS: Allopurinol 300 MG Tablet PO (08:54)
[2022-11-13] MEDS: Carvedilol 25 MG Tablet 50 MG PO ×2 (08:54→17:54)
[2022-11-13] MEDS: Aspirin E.C. 81 MG Tablet PO (08:54)
[2022-11-13] MEDS: predniSONE 5 MG Tablet PO (08:54)
[2022-11-13] MEDS: Doxazosin 4 MG Tablet 8 MG PO (09:03)
[2022-11-13 16:00] VITALS: BP 153/93; PULSE 60; RESP 16; TEMP 36.8; O2SAT 92
[2022-11-13] MEDS: Montelukast 10 MG Tablet PO (23:06)
[2022-11-13] MEDS: Atorvastatin Calcium 40 MG Tablet PO (23:06)
[2022-11-14] MEDS: Mycophenolate Mofetil 250 MG Capsule 500 MG PO ×2 (06:54→17:23)
[2022-11-14] MEDS: Clopidogrel Bisulfate 75 MG Tablet PO (06:55)
[2022-11-14] MEDS: Menthol/Lanolin/Calamine/Znox 113 GM Tube 1 APPLIC TOPICAL ×2 (06:55→17:23)
[2022-11-14] MEDS: Tacrolimus Anhydrous 1 MG Capsule PO ×2 (06:55→17:24)
[2022-11-14] MEDS: Nystatin Powder 15gm Bottle 1 APPLIC TOPICAL ×2 (06:55→17:24)
[2022-11-14] MEDS: Tolterodine Tartrate 2 MG CAP.SA PO (06:56)
[2022-11-14] MEDS: NIFEdipine 90 MG Tablet PO (06:56)
[2022-11-14] MEDS: Senna/Docusate Sodium 1 Tablet PO ×2 (06:56→17:24)
[2022-11-14] MEDS: Pantoprazole Sodium 40 MG Tablet PO (06:56)
[2022-11-14 06:59] VITALS: BP 132/88; PULSE 72
[2022-11-14] MEDS: predniSONE 5 MG Tablet PO (08:03)
[2022-11-14] MEDS: Smz/Tmp Ds Tablet 1 TABLET PO (08:03)
[2022-11-14] MEDS: Allopurinol 300 MG Tablet PO (08:03)
[2022-11-14] MEDS: Aspirin E.C. 81 MG Tablet PO (08:03)
[2022-11-14] MEDS: Carvedilol 25 MG Tablet 50 MG PO ×2 (08:03→17:22)
[2022-11-14] MEDS: Acetaminophen 500 MG Tablet 1000 MG PO ×3 (08:08→23:28)
--- NOTE | 2022-11-14 09:05 | NURSING ---
Probation Counselor Note; MDS Complete
--- NOTE | 2022-11-14 09:48 | NURSING ---
Marilyn confirms okay to use Zafirlukast from home. Pharmacy to label.
[2022-11-14] MEDS: Doxazosin 4 MG Tablet 8 MG PO (13:09)
[2022-11-14 15:14] VITALS: BP 140/84; PULSE 68; RESP 18; TEMP 36.8; O2SAT 93
[2022-11-14] MEDS: oxyCODONE 5 MG Tablet PO ×2 (15:23→21:00)
[2022-11-14] MEDS: ZAFIRLUKAST 20 MG TABLET PO (17:24)
[2022-11-14] MEDS: Atorvastatin Calcium 40 MG Tablet PO (20:59)
[2022-11-15 05:40] LABS: Absolute Lymphocyte Count 2.74 X10^3/uL (0.83-4.51); Absolute Neutrophil Count 4.2 X10^3/uL (2.0-7.7); Basophil# 0.02 X10^3/uL; Basophil% 0.3 % (0-1); Eosinophils% 3.8 % (0-5); Hematocrit 37.1 % (40-54); Hemoglobin 12.5 g/dL (13.0-16.5); Lymphocyte # 2.74 X10^3/ul (0.83-4.51); Lymphocyte % 34.3 % (19-41); Mean Corp Hgb Conc 33.7 g/dL (32-36); Mean Corpuscular Hgb 29.5 pg (27.0-32.0); Mean Corpuscular Volume 87.5 fL (80-94); Mean Platelet Vol. 10.2 fl (6.2-12.0); Monocyte# 0.65 X10^3/uL; Monocyte% 8.1 % (0-10); NRBC Flagged by Analyzer 0 % (0-5); Neutrophil # 4.24 X10^3/uL (2.7-7.7); Platelet Count 180 K/mm3 (150-450); RBC Distribution Width CV 12.9 % (11.6-14.6); RBC Distribution Width SD 40.5 fl (35.1-43.9); Red Blood Count 4.24 M/mm3 (4.6-6.2)
[2022-11-15] MEDS: Menthol/Lanolin/Calamine/Znox 113 GM Tube 1 APPLIC TOPICAL ×2 (05:58→17:37)
[2022-11-15] MEDS: Tolterodine Tartrate 2 MG CAP.SA PO (05:59)
[2022-11-15] MEDS: Nystatin Powder 15gm Bottle 1 APPLIC TOPICAL ×2 (05:59→17:36)
[2022-11-15] MEDS: NIFEdipine 90 MG Tablet PO (05:59)
[2022-11-15] MEDS: Mycophenolate Mofetil 250 MG Capsule 500 MG PO ×2 (05:59→17:35)
[2022-11-15] MEDS: Clopidogrel Bisulfate 75 MG Tablet PO (05:59)
[2022-11-15] MEDS: Pantoprazole Sodium 40 MG Tablet PO (05:59)
[2022-11-15 06:00] VITALS: BP 152/90; PULSE 60
[2022-11-15 06:00] LABS: Anion Gap 8 (5-15); BUN 49 mg/dL (7-18); BUN/Creat Ratio 26.8 RATIO (10-20); Calcium,Total 9.1 mg/dL (8.5-10.1); Chloride 106 mmol/L (98-107); Creatinine, Serum 1.83 mg/dL (0.70-1.30); EST Glomerular Filtration Rate 39 mL/min (>60); Est Glom Filt Rate - Afr Amer 47 mL/min (>60); Estimated Creatinine Clearance 38.78 ml/min; Glucose 129 mg/dL (74-106); Potassium 4.1 mmol/L (3.5-5.1); Sodium Level 138 mmol/L (136-145)
[2022-11-15] MEDS: Tacrolimus Anhydrous 1 MG Capsule PO ×2 (06:00→17:36)
[2022-11-15] MEDS: Senna/Docusate Sodium 1 Tablet PO ×2 (06:00→17:36)
[2022-11-15] MEDS: ZAFIRLUKAST 20 MG TABLET PO (06:00)
[2022-11-15] MEDS: Aspirin E.C. 81 MG Tablet PO (08:16)
[2022-11-15] MEDS: predniSONE 5 MG Tablet PO (08:16)
[2022-11-15] MEDS: Carvedilol 25 MG Tablet 50 MG PO ×2 (08:16→17:36)
[2022-11-15] MEDS: Allopurinol 300 MG Tablet PO (08:17)
[2022-11-15 08:20] VITALS: BP 166/91; PULSE 61
[2022-11-15] MEDS: Acetaminophen 500 MG Tablet 1000 MG PO ×2 (10:47→21:18)
[2022-11-15] MEDS: Doxazosin 4 MG Tablet 8 MG PO (10:47)
[2022-11-15] MEDS: oxyCODONE 5 MG Tablet PO ×2 (10:48→21:18)
[2022-11-15] MEDS: Tuberculin,Purif.prot.deriv. 50 TU/ML Vial 0.1 ML ID (10:51)
[2022-11-15 14:30] VITALS: BP 141/91; PULSE 65; RESP 17; TEMP 36.1; O2SAT 94
[2022-11-15 14:31] VITALS: BMI 43.3
--- NOTE | 2022-11-15 16:38 | PN.RENAL_ITS ---
Documented by User: BEKAH Catherine 11/15/22 16:51 Subjective Subjective Following for DANA on CKD Patient is resting in bed. Denies any complaints. Reports good appetite. Denies any recent nausea, vomiting or diarrhea. at bedside. Objective Data Objective Data Vital Signs: Vital Signs Temp Pulse Resp BP Pulse Ox O2 Del Method 96.9 F L 65 17 141/91 H 94 Room Air 11/15/22 14:30 11/15/22 14:30 11/15/22 14:30 11/15/22 14:30 11/15/22 14:30 11/15/22 14:30 Oxygen Delivery Method Room Air Weight: 137.438 kg Body Mass Index (BMI) 43.3 Intake & Output: Intake and Output for Last 24 Hours 11/13/22 11/14/22 11/15/22 23:59 23:59 23:59 Intake Total 1320 / 1320 360 / 360 Balance 1320 / 1320 360 / 360 Lab / Micro Data Result Diagrams: 11/15/22 05:20 11/15/22 05:20 Labs: Laboratory Results - last 24 hr 11/15/22 05:20: WBC 8.0, RBC 4.24 L, Hgb 12.5 L, Hct 37.1 L, MCV 87.5, MCH 29.5, MCHC 33.7, RDW Std Deviation 40.5, RDW Coeff of Leonie 12.9, Plt Count 180, MPV 10.2, Immature Gran % (Auto) 0.500, Neut % (Auto) 53.0, Lymph % (Auto) 34.3, Moffat % (Auto) 8.1, Eos % (Auto) 3.8, Baso % (Auto) 0.3, Absolute Neuts (auto) 4.2, Absolute Lymphs (auto) 2.74, Nucleated RBC % 0 11/15/22 05:20: Sodium 138, Potassium 4.1, Chloride 106, Carbon Dioxide 24.0, Anion Gap 8, BUN 49 H, Creatinine 1.83 H, Estim Creat Clear Calc 38.78, Est GFR (MDRD) Af Amer 47 L, Est GFR (MDRD) Non-Af 39 L, BUN/Creatinine Ratio 26.8 H, Glucose 129 H, Calcium 9.1 Micro: Microbiology 11/11/22 06:45 Nasal Secretion SARS-CoV-2 Antigen (Rapid) - Final 11/09/22 05:00 Nasal Secretion SARS-CoV-2 Antigen (Rapid) - Final Physical Exam Narrative Alert and oriented x3, no apparent distress S1, S2, RRR lung sounds clear anteriorly and posteriorly Abdomen soft, nontender, nondistended No pitting edema noted bilateral lower legs feet or arms Assessment & Plan Assessment/Plan (1) Chronic kidney disease, stage 3a: (2) History of liver transplant: (3) History of kidney transplant: (4) Essential (primary) hypertension: PLAN: Plan -DANA on CKD secondary to hemodynamic changes. Serum creatinine peaked 2.34 mg/dL on 11/05, on 11/07 serum creatinine 1.68 mg/dL. On 11/08 serum creatinine 1.74 and today serum creatinine 1.83 mg/dL. 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 No hyperkalemia or acidemia. Patient appears near euvolemic and is nonoliguric. -Kidney/liver transplant recipient, CKD stage III with baseline creatinine ar ound 1.4 to 1.6 mg/dL. Continue current immunosuppressants (tacrolimus, CellCept and prednisone) as ordered. Reviewed these with patient and . -History of hypertension. Current blood pressures are acceptable. A.m. systolic blood pressure before meds around 160s, after meds improved to 130s - 140s. Continue antihypertensives as ordered: Doxazosin 8 mg daily, Procardia 90 mg daily, carvedilol 50 mg twice daily. During hospitalization in PCU renal doppler ordered but was not done (there was possible suspected renal artery stenosis at the site of his renal artery anastomosis to iliac there was a kink noted with significant velocity difference across.? A stent placement was attempted in 2018 and this was not successful.? Initial stent deployed to dislodged distally and another stent was prematurely deployed went into gluteal artery), message was sent to Dr. Small at [facility] Main [place] by Dr. Mcadams to coordinate this. Both patient and report they have received a message to have this done. Documented by User: Dr. Sandra Devine MD 11/15/22 17:58 Objective Data Lab / Micro Data Result Diagrams: 11/15/22 05:20 11/15/22 05:20 Assessment & Plan Assessment/Plan (1) Chronic kidney disease, stage 3a: (2) History of liver transplant: (3) History of kidney transplant: (4) Essential (primary) hypertension: PLAN: Plan -DANA on CKD secondary to hemodynamic changes. Serum creatinine peaked 2.34 mg/dL on 11/05, on 11/07 serum creatinine 1.68 mg/dL. On 11/08 serum creatinine 1.74 and today serum creatinine 1.83 mg/dL. 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 No hyperkalemia or acidemia. Patient appears near euvolemic and is nonoliguric. -Kidney/liver transplant recipient, CKD stage III with baseline creatinine around 1.4 to 1.6 mg/dL. Continue current immunosuppressants (tacrolimus, CellCept and prednisone) as ordered. Reviewed these with patient and . -History of hypertension. Current blood pressures are acceptable. A.m. systolic blood pressure before meds around 160s, after meds improved to 130s -140s. Continue antihypertensives as ordered: Doxazosin 8 mg daily, Procardia 90 mg daily, carvedilol 50 mg twice daily. During hospitalization in PCU renal doppler ordered but was not done (there was possible suspected renal artery stenosis at the site of his renal artery anastomosis to iliac there was a kink noted with significant velocity difference across.? A stent placement was attempted in 2018 and this was not successful.? Initial stent deployed to dislodged distally and another stent was prematurely deployed went into gluteal artery), message was sent to Dr. Small at [facility] by Dr. Mcadams to coordinate this. Both patient and report they have received a message to have this done. Nephrology attending addendum: Nurse practitioner's note reflects my evaluation and management decision. The patient has fluctuating serum creatinine which suggest volume changes. However, we will continue to monitor the trajectory of renal allograft function. If there is a trend towards increasing serum creatinine, I will check urinalysis and urine indices again. Continue current immunosuppression with tacrolimus, mycophenolate, and prednisone. We will also check tacrolimus level if there is a trend towards increasing serum creatinine as well. Anoop Sparrow MD
[2022-11-15 17:42] VITALS: BP 161/86; PULSE 63
[2022-11-15] MEDS: Atorvastatin Calcium 40 MG Tablet PO (21:17)
[2022-11-15 22:00] VITALS: PULSE 59; RESP 18; O2SAT 93
[2022-11-16] MEDS: Pantoprazole Sodium 40 MG Tablet PO (06:30)
[2022-11-16] MEDS: NIFEdipine 90 MG Tablet PO (06:30)
[2022-11-16] MEDS: Senna/Docusate Sodium 1 Tablet PO ×2 (06:30→17:37)
[2022-11-16] MEDS: ZAFIRLUKAST 20 MG TABLET PO (06:30)
[2022-11-16] MEDS: Clopidogrel Bisulfate 75 MG Tablet PO (06:31)
[2022-11-16] MEDS: Tacrolimus Anhydrous 1 MG Capsule PO ×2 (06:31→17:37)
[2022-11-16] MEDS: Tolterodine Tartrate 2 MG CAP.SA PO (06:31)
[2022-11-16] MEDS: Mycophenolate Mofetil 250 MG Capsule 500 MG PO ×2 (06:31→17:35)
[2022-11-16] MEDS: Nystatin Powder 15gm Bottle 1 APPLIC TOPICAL ×2 (06:34→17:39)
[2022-11-16] MEDS: Menthol/Lanolin/Calamine/Znox 113 GM Tube 1 APPLIC TOPICAL ×2 (06:36→17:40)
[2022-11-16 06:37] VITALS: BP 147/92; PULSE 61
[2022-11-16 06:43] LABS: Albumin, Serum 3.4 g/dL (3.2-5.0); BUN 48 mg/dL (7-18); BUN/Creat Ratio 29.3 RATIO (10-20); Calcium,Total 9.4 mg/dL (8.5-10.1); Chloride 108 mmol/L (98-107); Creatinine, Serum 1.64 mg/dL (0.70-1.30); EST Glomerular Filtration Rate 44 mL/min (>60); Est Glom Filt Rate - Afr Amer 54 mL/min (>60); Estimated Creatinine Clearance 43.28 ml/min; Glucose 134 mg/dL (74-106); Phosphorus 3.4 mg/dL (2.5-4.9); Potassium 4.1 mmol/L (3.5-5.1); Sodium Level 140 mmol/L (136-145)
[2022-11-16] MEDS: Acetaminophen 500 MG Tablet 1000 MG PO ×2 (07:16→21:20)
[2022-11-16] MEDS: oxyCODONE 5 MG Tablet PO (07:19)
[2022-11-16] MEDS: Smz/Tmp Ds Tablet 1 TABLET PO (08:21)
[2022-11-16] MEDS: predniSONE 5 MG Tablet PO (08:21)
[2022-11-16] MEDS: Carvedilol 25 MG Tablet 50 MG PO ×2 (08:21→17:35)
[2022-11-16] MEDS: Aspirin E.C. 81 MG Tablet PO (08:21)
[2022-11-16] MEDS: Allopurinol 300 MG Tablet PO (08:22)
[2022-11-16] MEDS: Magnesium Hydroxide 30 ML UDC PO (08:25)
[2022-11-16] MEDS: Doxazosin 4 MG Tablet 8 MG PO (09:18)
--- NOTE | 2022-11-16 10:22 | CASEMGMT ---
Addendum entered by Alanna Munguia 11/16/22 11:53: SW spoke with Krysten at [facility], who spoke with the , and requesting SN be added for assistance with medication management. SW added to the order. Plan: [facility] PT/OT/ST/SN Addendum entered by Alanna Munguia 11/16/22 11:21: stopped this worker after leaving care plan meeting and expressed concern with pt's cognition and managing his own medications. explained pt does not allow assistance from and has noticed some increasing forgetfulness, even prior to admission. SW offered for ST consult. agreed and appreciative. SW phoned Krysten at [facility] and added ST to order. Original Note: Social Work IDT met with patient and for care plan meeting. Discussed patient's progress in PT/OT/SN. Educated to Medicare benefit. Encouraged to contact secondary insurance to ensure copay coverage. Pt's goal is to return home with at [facility]. OT recommending getting adaptive equipment at home. Pt is requesting to DC home. Offered DC date 11/19. Pt and agreeable. Offered HHC vs OP. Pt and would like [facility]. No DME needs. to transport. Phoned referral to [facility] PT/OT. Plan: DC home with 11/19, [facility] PT/OT SEAN [place]
--- NOTE | 2022-11-16 11:14 | MDS.RN ---
Information for the mds was obtained from review of the clinical record, interview of resident, staff, and direct observation of resident's care.
--- NOTE | 2022-11-16 11:23 | PN.RENAL_ITS ---
Subjective Subjective Following for DANA on CKD and for management of kidney transplant patient. The patient denies chest pain, shortness of breath, nausea, vomiting, or increasing edema. He denies LUTS. Objective Data Objective Data Vital Signs: Vital Signs Temp Pulse Resp BP Pulse Ox O2 Del Method 96.9 F L 61 18 147/92 H 93 Room Air 11/15/22 14:30 11/16/22 06:37 11/15/22 22:00 11/16/22 06:37 11/15/22 22:00 11/16/22 08:42 Oxygen Delivery Method Room Air Weight: 137.438 kg Body Mass Index (BMI) 43.3 Intake & Output: Intake and Output for Last 24 Hours 11/14/22 11/15/22 11/16/22 23:59 23:59 23:59 Intake Total 1320 / 1320 600 / 600 600 / 600 Balance 1320 / 1320 600 / 600 600 / 600 Lab / Micro Data Result Diagrams: 11/15/22 05:20 11/16/22 05:26 Labs: Laboratory Results - last 24 hr 11/16/22 05:26: Sodium 140, Potassium 4.1, Chloride 108 H, Carbon Dioxide 23.0, BUN 48 H, Creatinine 1.64 H, Estim Creat Clear Calc 43.28, Est GFR (MDRD) Af Amer 54 L, Est GFR (MDRD) Non-Af 44 L, BUN/Creatinine Ratio 29.3 H, Glucose 134 H, Calcium 9.4, Phosphorus 3.4, Albumin 3.4 Micro: Microbiology 11/11/22 06:45 Nasal Secretion SARS-CoV-2 Antigen (Rapid) - Final 11/09/22 05:00 Nasal Secretion SARS-CoV-2 Antigen (Rapid) - Final Physical Exam Narrative Alert and oriented x3, no apparent distress S1, S2, RRR lung sounds clear anteriorly and posteriorly Abdomen soft, nontender, nondistended No pitting edema noted bilateral lower legs feet or arms Assessment & Plan Assessment/Plan (1) Chronic kidney disease, stage 3a: (2) History of liver transplant: (3) History of kidney transplant: (4) Essential (primary) hypertension: PLAN: Plan Impression/Plan: The patient is a 71-year-old man with past history of 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 The patient also has a history of CAD, PAUL, hypertension, asthma, hyperlipidemia and morbid obesity. Acute kidney injury on chronic kidney disease stage IIIb. Baseline serum creatinine is around 1.4-1.6 mg/dL DANA is secondary to hemodynamic changes. Serum creatinine peaked 2.34 mg/dL on 11/05/2022. There has been some increase recently in serum creatinine since 11/07/2022. On 11/07 serum creatinine was 1.68 mg/dL. On 11/08 serum creatinine was 1.74 and 1.83 mg/dL on 11/15/2022. Overall renal function has improved and is stable. Serum creatinine is down to 1.64 mg/dL today (11/16/2022). No acute indication for MANAGER CONTINUOUS IMPROVEMENT. No hyperkalemia or acidemia. Patient appears near euvolemic and is nonoliguric. s/p kidney and liver transplantation. Continue current immunosuppressants (tacrolimus, MMF, and prednisone) as ordered. Hypertension. Current blood pressures are acceptable. Systolic blood pressure before meds around 160s, after meds improved to 130s -140s. Continue antihypertensives as ordered: Doxazosin 8 mg daily, Procardia 90 mg daily, carvedilol 50 mg twice daily. During hospitalization in PCU renal doppler ordered but was not done (t here was possible suspected renal artery stenosis at the site of his renal artery anastomosis to iliac there was a kink noted with significant velocity difference across.? A stent placement was attempted in 2018 and this was not successful.? Initial stent deployed to dislodged distally and another stent was prematurely deployed went into gluteal artery), message was sent to Dr. Small at [facility] Main [place] by Dr. Mcadams to coordinate this. Both patient and report they have received a message to have this done.
[2022-11-16 15:51] VITALS: BP 152/48; PULSE 84; RESP 18; TEMP 36.5; O2SAT 93
--- NOTE | 2022-11-16 18:31 | DS.PCM_ITS ---
Providers Date of Admission: 11/07/22 Primary Care Physician: Dr. Shanelle Luz, Consultations 11/09/22 17:09 Consult: Pain Management Routine Consulting Provider: Mason Beckman Reason for Consult: Hip pain, back pain. EMERGENT Consult: No Notified: Yes Date Notified: 11/09/22 Time Notified: 17:09 Method of Notification: Answering Service 11/15/22 08:04 Consult: Nephrology Routine Consulting Provider: Sandra Devine Reason for Consult: Acute on chronic kidney failure, kidney transplant. EMERGENT Consult: No Notified: Yes Date Notified: 11/15/22 Time Notified: 08:04 Method of Notification: Answering Service Reason For Visit: HYPERTENSIVE EMERGENCY Diagnosis Discharge Diagnosis (1) Chronic kidney disease, stage 3a: Status: Chronic Code(s): N18.31 - Chronic kidney disease, stage 3a (2) History of liver transplant: Status: Acute Code(s): Z94.4 - Liver transplant status (3) History of kidney transplant: Status: Acute Code(s): Z94.0 - Kidney transplant status (4) Essential (primary) hypertension: Status: Chronic Code(s): I10 - Essential (primary) hypertension Plan 71 year old male with below past medical history hospitalized for acute encephalopathy secondary to hypertensive emergency, complicated by acute kidney injury, admitted to TCU with debility, here for rehabilitation, strengthening, prior to discharge home with . * Debility - PT/OT. * Pain - Tylenol 1000mg q6h prn pain (1-5), Oxycodone 5mg q4h prn pain (6-10). * Bowel - senna/colace 1 tablet bid, Dulcolax 10mg pr x 1 prn, MOM 30ml po x 1 prn. * Adult immunization - Administer pneumonia vaccine, covid19 vaccine, flu vaccine as appropriate. * DVT prophylaxis - Hold, on dual antiplatelet therapy. * Hypertension - Coreg 50mg bid, Nifedipine XL 90mg daily. * Gout - Allopurinol 300mg daily. * Coronary artery disease - Coreg 50mg bid, Plavix 75mg daily, Aspirin 81mg daily. * Hyperlipidemia - Atorvastatin 40mg qhs. * BPH - Doxazosin 8mg daily. * Asthma - Singulair 10mg daily. * Kidney transplant/Liver transplant - Mycophenolate 500mg bid, Tacrolimus 1mg bid, Prednisone 5mg daily, Bactrim DS 1 tablet MWF. * Tinea Corporis - Nystatin powder topical bid. * GERD - Pantoprazole 40mg daily. * Overactive bladder - Detrol 2mg daily. Medications at Discharge Home Medications pantoprazole 40 mg tablet,delayed release (Protonix) 40 mg PO DAILY gerd 12/20/19 oxybutynin chloride 10 mg tablet,extended release 24 hr 10 mg PO DAILY bladder 03/29/20 prednisone 5 mg tablet 5 mg PO DAILY anti rejection 03/29/20 aspirin 81 mg tablet,delayed release (Adult Low Dose Aspirin) 81 mg PO DAILY HEART HEALTH 04/15/20 tacrolimus 1 mg capsule,extended release 24 hr 1 mg PO BID liver transplant 04/15/20 zafirlukast 20 mg tablet (Accolate) 20 mg PO Q12H BREATHING 04/15/20 sulfamethoxazole 400 mg-trimethoprim 80 mg tablet 2 tab PO MOWEFR preventative atb 07/17/20 oxycodone 5 mg tablet 5 mg PO TID PRN pain 3 days #12 tabs 10/06/21 atorvastatin 40 mg tablet 40 mg PO QHS CHOLESTEROL #90 tabs 01/26/22 doxazosin 8 mg tablet 8 mg PO QAM bp #90 tabs 10/06/22 nifedipine 90 mg tablet,extended release 24 hr (Procardia XL) 90 mg PO DAILY HEART #90 tabs 10/10/22 allopurinol 300 mg tablet 300 mg PO DAILY GOUT 11/02/22 clopidogrel 75 mg tablet 75 mg PO DAILY BLOOD THINNER 11/02/22 mycophenolate mofetil 250 mg capsule 500 mg PO BID Antirejection 11/02/22 nystatin 100,000 unit/gram topical powder (Nystop) 1 applic topical BID Skin 11/02/22 carvedilol 25 mg tablet (Coreg) 50 mg PO BID BP 11/07/22 acetaminophen 500 mg tablet 1,000 mg PO Q6H PRN PRN Pain Score 1-5 #0 tabs 11/16/22 Hospital Course Operations None Procedures None Summary of Care Provided Minutes Spent on Discharge: 35 Hospital Course: 71 year old male with below past medical history hospitalized for acute encephalopathy secondary to hypertensive emergency, complicated by acute kidney injury, admitted to TCU with debility, here for rehabilitation, strengthening, prior to discharge home with . Discharge home with 11/19/2022, [facility] PT/OT/ST/SN. Physical Exam Const alert General Appearance: cooperative HEENT normocephalic Eyes PERRL and EOMs intact bilaterally Neck supple, no JVD and no carotid bruits Resp normal respiratory effort, normal air movement and clear to auscultation bilaterally Cardio regular rate and regular rhythm GI normal to inspection, nondistended, normoactive bowel sounds, non-tender and non-distended Extremity normal capillary refill General Extremity: Negative for edema Skin no rashes or lesions noted General Skin Exam: no breakdown Psych affect normal Appearance: appropriate Weight / BMI Weight Weight: 137.438 kg Body Mass Index (BMI) 43.3 ABG / Lab / Microbiology Data Result Diagrams: 11/15/22 05:20 11/16/22 05:26 Laboratory: Laboratory Results - last 24 hr 11/16/22 05:26: Sodium 140, Potassium 4.1, Chloride 108 H, Carbon Dioxide 23.0, BUN 48 H, Creatinine 1.64 H, Estim Creat Clear Calc 43.28, Est GFR (MDRD) Af Amer 54 L, Est GFR (MDRD) Non-Af 44 L, BUN/Creatinine Ratio 29.3 H, Glucose 134 H, Calcium 9.4, Phosphorus 3.4, Albumin 3.4 Microbiology: Microbiology 11/11/22 06:45 Nasal Secretion SARS-CoV-2 Antigen (Rapid) - Final 11/09/22 05:00 Nasal Secretion SARS-CoV-2 Antigen (Rapid) - Final D/C Instructions Discharge Diet: No restrictions Discharge Activity: Return to Normal Activity, May Shower and Use Walker Weight Bearing Status: Weight bearing as tolerated Call your doctor if you observe: Fever of 101 or Higher, Inability to urinate, Inability to have a bowel movement, Shortness of breath, Dizziness, Fainting spells, Swelling in the ankles, Chest pain and Uncontrolled pain Additional Instructions: Discharge home with 11/19/2022, [facility] PT/OT/ST/SN. Please Follow Up With: Helen Mcadams MD When: 2 weeks. Meaningful Use Info Meaningful Use Diagnoses (Choose all that apply): None applicable Discharge Plan Admission Admit Date/Time: 11/07/22 18:18 Primary Reason for Your Visit: Debility. Attending Provider: Robbie Anne Chi Primary Care Provider: Shanelle Luz Consulting Providers: Mason Beckman ; Sandra Devine Instructions Additional Instructions / Restrictions: Discharge home with 11/19/2022, [facility] PT/OT/ST/SN. Discharge Orders/Prescriptions Prescriptions: New acetaminophen 500 mg Tablet 1,000 mg PO Q6H PRN PRN (Reason: Pain Score 1-5) Qty: 0 0RF Continued pantoprazole [Protonix] 40 mg tablet,delayed release (DR/EC) 40 mg PO DAILY aspirin [Adult Low Dose Aspirin] 81 mg tablet,delayed release (DR/EC) 81 mg PO DAILY zafirlukast [Accolate] 20 mg tablet 20 mg PO Q12H Rx Instructions: administer 1 hour before or 2 hours after food or meals tacrolimus 1 mg capsule,extended release 24hr 1 mg PO BID Label Comments: REJECTION MED oxybutynin chloride 10 MG tablet extended release 24hr 10 mg PO DAILY prednisone 5 MG tablet 5 mg PO DAILY sulfamethoxazole-trimethoprim 400-80 mg tablet 2 tab PO MOWEFR Rx Instructions: take one tablet po every monday, monday, monday oxycodone 5 mg Tablet 5 mg PO TID PRN (Reason: pain) 3 Days Qty: 12 0RF mycophenolate mofetil 250 mg capsule 500 mg PO BID Label Comments: take 2 capsules by mouth twice a day clopidogrel 75 mg tablet 75 mg PO DAILY allopurinol 300 mg tablet 300 mg PO DAILY nystatin [Nystop] 100,000 unit/gram Powder 1 applic TOPICAL BID carvedilol [Coreg] 25 mg tablet 50 mg PO BID Rx Instructions: must administer with a meal/food atorvastatin 40 mg tablet 40 mg PO QHS Qty: 90 3RF doxazosin 8 mg tablet 8 mg PO QAM Qty: 90 3RF nifedipine [Procardia XL] 90 mg tablet extended release 24hr 90 mg PO DAILY Qty: 90 3RF Referrals / Follow Up: Shanelle Luz DO [Primary Care Provider] - Disposition Disposition (needs filled in before D/C Order can be placed): Home Health Service
[2022-11-16] MEDS: Atorvastatin Calcium 40 MG Tablet PO (21:21)
[2022-11-17] MEDS: Clopidogrel Bisulfate 75 MG Tablet PO (05:42)
[2022-11-17] MEDS: NIFEdipine 90 MG Tablet PO (05:42)
[2022-11-17] MEDS: Pantoprazole Sodium 40 MG Tablet PO (05:42)
[2022-11-17] MEDS: Senna/Docusate Sodium 1 Tablet PO ×2 (05:42→17:55)
[2022-11-17] MEDS: Tolterodine Tartrate 2 MG CAP.SA PO (05:43)
[2022-11-17] MEDS: Tacrolimus Anhydrous 1 MG Capsule PO ×2 (05:43→17:55)
[2022-11-17] MEDS: Mycophenolate Mofetil 250 MG Capsule 500 MG PO ×2 (05:43→17:55)
[2022-11-17] MEDS: Acetaminophen 500 MG Tablet 1000 MG PO ×3 (05:45→22:02)
[2022-11-17] MEDS: Nystatin Powder 15gm Bottle 1 APPLIC TOPICAL ×2 (05:47→20:39)
[2022-11-17] MEDS: ZAFIRLUKAST 20 MG TABLET PO (05:49)
[2022-11-17] MEDS: Menthol/Lanolin/Calamine/Znox 113 GM Tube 1 APPLIC TOPICAL ×2 (05:53→20:39)
[2022-11-17] MEDS: Bisacodyl 10 MG Suppository RC (06:52)
[2022-11-17] MEDS: Carvedilol 25 MG Tablet 50 MG PO ×2 (08:17→17:55)
[2022-11-17] MEDS: predniSONE 5 MG Tablet PO (08:17)
[2022-11-17] MEDS: Allopurinol 300 MG Tablet PO (08:17)
[2022-11-17] MEDS: Aspirin E.C. 81 MG Tablet PO (08:17)
[2022-11-17 08:20] VITALS: BP 136/79; PULSE 79
[2022-11-17] MEDS: Doxazosin 4 MG Tablet 8 MG PO (10:40)
[2022-11-17 15:03] VITALS: BP 143/88; PULSE 65; RESP 21; TEMP 36.9; O2SAT 94
[2022-11-17 18:00] VITALS: BP 158/97; PULSE 63
--- NOTE | 2022-11-17 18:41 | NURSING ---
Pt requested to have Zafirlukast increased to twice a day. Dr. Anne called and received N.O. to increase to BID. Order read back.
[2022-11-17] MEDS: Atorvastatin Calcium 40 MG Tablet PO (20:43)
[2022-11-17 21:50] VITALS: PULSE 64; RESP 18; O2SAT 95
[2022-11-18] MEDS: ZAFIRLUKAST 20 MG TABLET PO ×2 (04:57→17:34)
[2022-11-18] MEDS: Tolterodine Tartrate 2 MG CAP.SA PO (04:57)
[2022-11-18] MEDS: NIFEdipine 90 MG Tablet PO (04:57)
[2022-11-18] MEDS: Pantoprazole Sodium 40 MG Tablet PO (04:57)
[2022-11-18] MEDS: Clopidogrel Bisulfate 75 MG Tablet PO (04:57)
[2022-11-18] MEDS: Senna/Docusate Sodium 1 Tablet PO (04:58)
[2022-11-18] MEDS: Tacrolimus Anhydrous 1 MG Capsule PO ×2 (04:58→17:33)
[2022-11-18] MEDS: Menthol/Lanolin/Calamine/Znox 113 GM Tube 1 APPLIC TOPICAL ×2 (04:58→17:38)
[2022-11-18] MEDS: Mycophenolate Mofetil 250 MG Capsule 500 MG PO ×2 (04:58→17:32)
[2022-11-18] MEDS: Nystatin Powder 15gm Bottle 1 APPLIC TOPICAL ×2 (04:59→17:35)
[2022-11-18] MEDS: Acetaminophen 500 MG Tablet 1000 MG PO ×2 (07:42→21:30)
[2022-11-18] MEDS: predniSONE 5 MG Tablet PO (07:43)
[2022-11-18] MEDS: Smz/Tmp Ds Tablet 1 TABLET PO (07:43)
[2022-11-18] MEDS: Aspirin E.C. 81 MG Tablet PO (07:43)
[2022-11-18] MEDS: Carvedilol 25 MG Tablet 50 MG PO ×2 (07:43→17:32)
[2022-11-18] MEDS: Allopurinol 300 MG Tablet PO (07:43)
[2022-11-18] MEDS: Doxazosin 4 MG Tablet 8 MG PO (10:36)
--- NOTE | 2022-11-18 11:42 | PCM.PN.REN ---
Subjective Subjective Sitting in chair, denies any complaints. Objective Data Objective Data Vital Signs: Vital Signs Temp Pulse Resp BP Pulse Ox O2 Del Method 98.5 F 64 18 158/97 H 95 Room Air 11/17/22 15:03 11/17/22 21:50 11/17/22 21:50 11/17/22 18:00 11/17/22 21:50 11/18/22 09:20 Oxygen Delivery Method Room Air Weight: 137.438 kg Body Mass Index (BMI) 43.3 Intake & Output: Intake and Output for Last 24 Hours 11/16/22 11/17/22 11/18/22 23:59 23:59 23:59 Intake Total 1780 / 1780 840 / 840 480 / 480 Balance 1780 / 1780 840 / 840 480 / 480 Lab / Micro Data Result Diagrams: 11/15/22 05:20 11/16/22 05:26 Micro: Microbiology 11/11/22 06:45 Nasal Secretion SARS-CoV-2 Antigen (Rapid) - Final 11/09/22 05:00 Nasal Secretion SARS-CoV-2 Antigen (Rapid) - Final Physical Exam Narrative Alert and oriented x3, no apparent distress S1, S2, RRR lung sounds clear anteriorly and posteriorly Abdomen soft, nontender, nondistended No pitting edema noted bilateral lower legs feet or arms Assessment & Plan Assessment/Plan (1) Chronic kidney disease, stage 3a: (2) History of liver transplant: (3) History of kidney transplant: (4) Essential (primary) hypertension: PLAN: Plan Impression/Plan: The patient is a 71-year-old man with past history of 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 The patient also has a history of CAD, PAUL, hypertension, asthma, hyperlipidemia and morbid obesity. Acute kidney injury on chronic kidney disease stage IIIb. Baseline serum creatinine is around 1.4-1.6 mg/dL DANA is secondary to hemodynamic changes. Serum creatinine peaked 2.34 mg/dL on 11/05/2022. There has been some increase recently in serum creatinine since 11/07/2022. On 11/07 serum creatinine was 1.68 mg/dL. On 3/7 serum creatinine was 1.74 and 1.83 mg/dL on 11/15/2022. Overall renal function has improved and is stable; last labs from November 16 serum creatinine 1.64 mg/dL. Patient does not need daily labs per our standpoint. 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 No hyperkalemia or acidemia. Patient appears near euvolemic and is nonoliguric. s/p kidney and liver transplantation. Continue current immunosuppressants (tacrolimus, MMF, and prednisone) as ordered. Hypertension. Current blood pressures are acceptable over past 24 hours. Continue antihypertensives as ordered: Doxazosin 8 mg daily, Procardia 90 mg daily, carvedilol 50 mg twice daily. During hospitalization in PCU renal doppler ordered but was not done (there was possible suspected renal artery stenosis at the site of his renal artery anastomosis to iliac there was a kink noted with significant velocity difference across.? A stent placement was attempted in 2017 and this was not successful.? Initial stent deployed to dislodged distally and another stent was prematurely deployed went into gluteal artery), message was sent to Dr. Small at [facility] by Dr. Mcadams to coordinate this. Both patient and report they have received a message to have this done. Disposition; possible discharge to home tomorrow. Will arrange outpatient hospital follow-up in our [place] office.
--- NOTE | 2022-11-18 13:21 | CASEMGMT ---
Social Work BIMS () and PHQ-9 () completed for MDS assessment. Alanna Munguia MSW ENGINEERING SPECIALIST
--- NOTE | 2022-11-18 14:17 | NURSING ---
During rounds, note patient is seating himself down on bed. When situation assessed he report that he transferred self to bathroom from bed and back without assistance. Education provided regarding safety and calling for assistance. Pt reports understanding but that he couldn't wait and that he had episode of loose stools. Reassurance provided and request he use call light for transfers.
[2022-11-18 14:33] VITALS: BP 159/94; PULSE 65; RESP 16; TEMP 36.6; O2SAT 91
[2022-11-18] MEDS: Atorvastatin Calcium 40 MG Tablet PO (20:54)
[2022-11-19] MEDS: Mycophenolate Mofetil 250 MG Capsule 500 MG PO (05:29)
[2022-11-19] MEDS: Tacrolimus Anhydrous 1 MG Capsule PO (05:29)
[2022-11-19] MEDS: Tolterodine Tartrate 2 MG CAP.SA PO (05:33)
[2022-11-19] MEDS: Pantoprazole Sodium 40 MG Tablet PO (05:33)
[2022-11-19] MEDS: NIFEdipine 90 MG Tablet PO (05:34)
[2022-11-19] MEDS: Clopidogrel Bisulfate 75 MG Tablet PO (05:35)
[2022-11-19] MEDS: Nystatin Powder 15gm Bottle 1 APPLIC TOPICAL (05:35)
[2022-11-19] MEDS: ZAFIRLUKAST 20 MG TABLET PO (05:35)
[2022-11-19] MEDS: Menthol/Lanolin/Calamine/Znox 113 GM Tube 1 APPLIC TOPICAL (05:36)
[2022-11-19] MEDS: Acetaminophen 500 MG Tablet 1000 MG PO (05:42)
[2022-11-19] MEDS: Carvedilol 25 MG Tablet 50 MG PO (08:00)
[2022-11-19] MEDS: predniSONE 5 MG Tablet PO (08:00)
[2022-11-19] MEDS: Allopurinol 300 MG Tablet PO (08:00)
[2022-11-19] MEDS: Aspirin E.C. 81 MG Tablet PO (08:00)
[2022-11-19] MEDS: oxyCODONE 5 MG Tablet PO (08:03)
[2022-11-19 08:10] VITALS: BP 145/77; PULSE 63
[2022-11-19] MEDS: Doxazosin 4 MG Tablet 8 MG PO (09:55)
[2022-11-19 10:00] VITALS: PULSE 72; RESP 20; O2SAT 97
[2022-11-19 10:10] VITALS: BP 139/89; PULSE 72; RESP 20; TEMP 36.6; O2SAT 97
== END 2022-11-19 10:00 | disposition home health service (06) | DRG 682 ==
PROVIDERS: Internal Medicine Nephrology; Admitting Provider Family Medicine Geriatric Medicine; PCP Internal Medicine; Visit Provider Family Medicine Geriatric Medicine
DX: I12.0 Hypertensive chronic kidney disease with stage 5 chronic kidney disease or end stage renal disease (principal); N18.6 End stage renal disease; N17.9 Acute kidney failure, unspecified; Z94.4 Liver transplant status; Z68.41 Body mass index [BMI] 40.0-44.9, adult; Z94.0 Kidney transplant status; K72.90 Hepatic failure, unspecified without coma; B35.4 Tinea corporis; K75.81 Nonalcoholic steatohepatitis (NASH); E66.01 Morbid (severe) obesity due to excess calories; Z99.2 Dependence on renal dialysis; I25.10 Atherosclerotic heart disease of native coronary artery without angina pectoris; E78.5 Hyperlipidemia, unspecified; M10.9 Gout, unspecified; K21.9 Gastro-esophageal reflux disease without esophagitis; G47.33 Obstructive sleep apnea (adult) (pediatric); J45.909 Unspecified asthma, uncomplicated; G89.4 Chronic pain syndrome; N40.0 Benign prostatic hyperplasia without lower urinary tract symptoms; Z79.52 Long term (current) use of systemic steroids; N32.81 Overactive bladder; Z79.82 Long term (current) use of aspirin; Z79.899 Other long term (current) drug therapy; Z79.02 Long term (current) use of antithrombotics/antiplatelets; Z86.73 Personal history of transient ischemic attack (TIA), and cerebral infarction without residual deficits; N13.9 Obstructive and reflux uropathy, unspecified; Z79.891 Long term (current) use of opiate analgesic; N40.1 Benign prostatic hyperplasia with lower urinary tract symptoms
CPT/HCPCS: 36415; 80048; 80069; 85025; 87811; 97110; 97116; 97162; 97166; 97530; 97535

== ENCOUNTER 2022-11-26 20:29 | Inpatient (IN) | payer MEDICARE, OTHER, SELFPAY ==
[2020-07-29 07:35] VITALS: BMI 46.7
[2022-11-26 20:31] VITALS: BP 164/96; PULSE 74; RESP 24; TEMP 37.7; O2SAT 90; BMI 19.0
--- NOTE | 2022-11-26 20:49 | CT_ITS ---
INDICATION: fall EXAMINATION: CT BRAIN - CT Head or Brain W/O Contrast Injection TECHNIQUE: Multiple axial images were obtained of the head without intravenous contrast. A radiation dose optimization technique was used for this scan. IV Contrast dosage and agent: None. COMPARISON: CT head November 02, 2022. FINDINGS: BRAIN PARENCHYMA: No intra- or extra-axial hemorrhage. Symmetric normal density of the ventricles and CSF spaces. No intracranial mass or mass effect. Thompson/white matter differentiation is maintained and there is no blurring of the basal ganglia. There is no hyperdense vessel. Note of significant intimal calcifications of the cavernous carotid arteries and intracranial vertebral and basilar arteries. There are even calcification seen in the distal M1 segment of left MCA. There is significant decreased density of the periventricular white matter most commonly representing chronic small vessel ischemic changes. This is not appreciably changed compared to prior exam. Posterior fossa structures are unremarkable. CSF SPACES: There is moderate, diffuse parenchymal volume loss, likely age-related. No hydrocephalus. Basal cisterns are patent. CALVARIUM, SKULL BASE, PARANASAL SINUSES AND MASTOID AIR CELLS: Intact calvarium and skull base. No fracture or osseous lesion. Mild mucosal thickening scattered throughout the paranasal sinuses. Mastoid air cells and middle ears are clear. ORBITS: Both globes, extraocular muscles, optic nerves and retrobulbar fat appear unremarkable. ASPECTS Score for Acute Strokes: 10 CT/Brain/Head without Contrast IMPRESSION: No acute intracranial pathology. Significant calcifications involving the intracranial vessels. Chronic small vessel ischemic changes. Paranasal sinus disease without air-fluid levels, likely chronic. Electronically Signed: Cody Aranda DO at 21:50 EDT ,
--- NOTE | 2022-11-26 20:50 | EKG12_ITS ---
Test Reason : FALL Blood Pressure : / mmHG Vent. Rate : 066 BPM Atrial Rate : 066 BPM P-R Int : 194 ms QRS Dur : 160 ms QT Int : 422 ms P-R-T Axes : 055 -53 -15 degrees QTc Int : 442 ms Normal sinus rhythm Left axis deviation Right bundle branch block Abnormal ECG Confirmed by KATHERINE RUSSELL, SHAUN ([id number]), newspaper copy editor RACHELE FRANZ ([id number]) on 11/28/2022 1:33:44 PM Referred By: Confirmed By:SHAUN MURPHY MD
--- NOTE | 2022-11-26 20:54 | ED.VIS.FALL ---
HPI HPI - Fall History of Present Illness Chief Complaint: Fall Detail of Chief Complaint: Multiple falls today at home. Informant: patient, spouse/S.O. and family Occured/Mechanism Occurred: Today Mechanism/Context: Yes same level fall Usually ambulates: Without assistance Pain/Injury Pain Location: none Associated Symptoms Associated Symptoms: Positive for Weakness and Inability to ambulate; Negative for Parasthesias, Loss of function, Loss of consciousness or Amnesia Narrative Narrative: 72-year-old male past medical history of CAD, hypertension, stroke and chronic kidney disease. He has had a prior liver and kidney transplant. He is under the care of pain management for chronic pain and takes oxycodone. Several weeks ago he was admitted to the hospital for hypertension. He was transferred to the transitional care unit and got discharged about a week ago. 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 And fell 3 different times today. He denies any injuries. The last time they were unable to get him up. He did have mild nausea and vomiting today. She has been home recently with a viral syndrome. Both the and their son state that he was doing well yesterday. Prior similar symptoms: No Recent Illness/Hospitalization: Yes [facility] Medical History Anemia Asthma Atherosclerotic heart disease of [place] coronary artery without angina pectoris Chronic kidney disease, stage 3a Chronic nonalcoholic liver disease Chronic pain syndrome Cirrhosis of liver End stage renal failure on dialysis Essential (primary) hypertension GERD (gastroesophageal reflux disease) History of CVA (cerebrovascular accident) (06/2021) History of non-ST elevation myocardial infarction (NSTEMI) (03/30/20) Hydronephrosis Immunosuppression Left renal artery stenosis Morbid obesity Obstructive sleep apnea Osteoarthritis Renal calculi Segmental and somatic dysfunction of lumbar region Superficial thrombophlebitis TIA (transient ischemic attack) Home Medications pantoprazole 40 mg tablet,delayed release (Protonix) 40 mg PO DAILY gerd 12/20/19 [History Last Taken 10/01/21] oxybutynin chloride 10 mg tablet,extended release 24 hr 10 mg PO DAILY bladder 03/29/20 [History Last Taken 10/01/21] prednisone 5 mg tablet 5 mg PO DAILY anti rejection 03/29/20 [History Last Taken 10/01/21] aspirin 81 mg tablet,delayed release (Adult Low Dose Aspirin) 81 mg PO DAILY HEART HEALTH 04/15/20 [History Last Taken 10/01/21] tacrolimus 1 mg capsule,extended release 24 hr 1 mg PO BID liver transplant 04/15/20 [History Last Taken 10/01/21] zafirlukast 20 mg tablet (Accolate) 20 mg PO Q12H BREATHING 04/15/20 [History Last Taken 10/01/21] sulfamethoxazole 400 mg-trimethoprim 80 mg tablet 2 tab PO MOWEFR preventative atb 07/17/20 [History Last Taken 10/01/21] oxycodone 5 mg tablet 5 mg PO TID PRN pain 3 days #12 tabs 10/06/21 [Rx Last Taken Unknown] atorvastatin 40 mg tablet 40 mg PO QHS CHOLESTEROL #90 tabs 01/26/22 [Rx Last Taken 11/01/22] doxazosin 8 mg tablet 8 mg PO QAM bp #90 tabs 10/06/22 [Rx Last Taken Unknown] nifedipine 90 mg tablet,extended release 24 hr (Procardia XL) 90 mg PO DAILY HEART #90 tabs 10/10/22 [Rx Last Taken Unknown] allopurinol 300 mg tablet 300 mg PO DAILY GOUT 11/02/22 [History Last Taken Unknown] clopidogrel 75 mg tablet 75 mg PO DAILY BLOOD THINNER 11/02/22 [History Last Taken Unknown] mycophenolate mofetil 250 mg capsule 500 mg PO BID Antirejection 11/02/22 [History Last Taken 11/02/22] nystatin 100,000 unit/gram topical powder (Nystop) 1 applic topical BID Skin 11/02/22 [History Last Taken Unknown] carvedilol 25 mg tablet (Coreg) 50 mg PO BID BP 11/07/22 [History Last Taken Unknown] acetaminophen 500 mg tablet 1,000 mg PO Q6H PRN PRN Pain Score 1-5 #0 tabs 11/16/22 [Rx Last Taken Unknown] Allergy/AdvReac Type Severity Reaction Status Date / Time metformin Allergy Other Verified 11/26/22 20:35 pregabalin [From Lyrica] Allergy Other Verified 11/26/22 20:35 Family History (Updated 11/26/22 @ 22:[address] Patria Damon MD) Grandmother PGM diabetes Paternal GM. Surgical History History of knee replacement History of left heart catheterization (04/03/20) History of stent insertion of renal artery (2014) Kidney transplant recipient (07/13/12) Kidney transplant recipient Liver transplant recipient (07/13/12) Social History household members: spouse Smoking Status: Never smoker second hand exposure: No alcohol intake: never substance use type: does not use caffeine: Yes frequency: 3-4 times per week ROS ROS ED ROS Narrative Generalized weakness. Nausea vomiting. Multiple falls. Review of Systems ROS Unobtainable: Denies due to encephalopathy Constitutional Constitutional ED: Denies chills or fever(s) Eyes Eyes: Denies blurry vision ENT ENT ED: Denies ear pain Cardiovascular Cardiovascular: Denies chest pain Respiratory/Chest Respiratory/Chest: Denies cough Gastrointestinal Gastrointestinal: Reports nausea and vomiting; Denies abdominal pain, constipation, diarrhea or melena Genitourinary Genitourinary ED: Denies dysuria or hematuria Musculoskeletal Musculoskeletal: Denies arthralgias Integumentary Denies abscess Neurologic Neurologic: Denies headache(s) Psychiatric Psychiatric: Denies anxiety Endocrine Endocrinology: Denies polydipsia or polyphagia Hematologic/Lymphatic Hematologic/Lymphatic: Denies easy bleeding Allergic/Immunologic Allergic/Immunologic ED: Denies mouth swelling or tongue swelling EXAM Physical Exam Narrative Exam Narrative: 72-year-old male vital signs are stable. He has a temperature nine 9.8. Pulse ox 90% on room air. H EENT exam unremarkable. Moist extremities. No signs of trauma to his face or scalp. Neck nontender. Lungs clear to auscultation. Chest wall nontender. Abdomen obese soft nontender. Normal bowel sounds no peritoneal signs. He has a large bruising on his abdomen from recent Lovenox shots. Pelvic girdle intact. No shortening or rotation either hip. Hips are nontender. Normal dorsi plantarflexion of his feet. Back nontender. Spine nontender. Neurologically is awake and alert. Answering questions following commands. He is unable to sit up in bed without significant assistance from both myself and his son. At this time there is no way to be able to walk. Const Vital Signs: 11/26/22 20:31 11/26/22 22:09 Temperature 99.8 F H Temperature Source Oral Pulse Rate 74 Respiratory Rate 24 H Respiratory Effort Normal Non-Labored Respiratory Depth Normal Respiratory Pattern Normal Blood Pressure 164/96 H Blood Pressure Mean 118 Pulse Ox 90 Oxygen Delivery Method Room Air Nasal Cannula Oxygen Flow Rate (L/min) 2 Positive well nourished, well developed and obese; Negative for cachectic, contractures or unkempt General Appearance ED: well developed and NAD; Negative for unkempt, cachectic or contractures Nutritional Appearance: obese; Negative for cachectic HEENT Reports normocephalic atraumatic; Negative for trauma, contusion, hematoma or tenderness Eyes PERRL and EOMs intact bilaterally General Eye ED: Negative for pale conjunctiva or scleral icterus Neck full ROM, no lymphadenopathy and supple General: Negative for tenderness Chest Wall inspection of chest normal and palpation of chest normal Chest: Negative for other Resp normal respiratory effort, no retractions and clear to auscultation bilaterally Effort and Inspection: Negative for pain with movement Auscultation: Negative for rales, rhonchi or wheezes Cardio regular rate, regular rhythm, S1 normal heart sound, S2 normal heart sound and no murmurs Rate: Negative for bradycardia or tachycardic GI non-tender, non-distended and no masses Inspection: Negative for abdominal distention Auscultation: normoactive bowel sounds Palpation: soft; Negative for guarding Back/Spine no CVA tenderness General Back: Negative for CVA tenderness Cervical Spine: Negative for cervical spine tenderness Thoracic Spine / Upper Back: Negative for ROM limited Lumbar Spine / Lower Back: Negative for lumbar spinal tenderness or paraspinal muscle tenderness Neuro oriented x3, moves all extremities and no focal motor deficits Ya Coma Scale: document GCS findings Spontaneous Obeys Commands Oriented 15 Sensorium / Orientation: alert, oriented to person, oriented to place and oriented to time; Negative for orientation impaired or confused Motor Exam: general weakness Psych mental status grossly normal and thought process normal Appearance: Negative for unkempt Attitude: No agitated Mood & Affect: Negative for depressed, anxious or tearful Skin Skin Narrative: Abdominal wall wound bruising from recent Lovenox shots. General Skin Exam: Negative for other Lesions: no lesions Rashes: no rashes Trauma: Negative for abrasion or laceration MDM MDM MDM Narrative Medical decision making narrative: 72-year-old male seen in past medical history with low-grade fever today generalized weakness and multiple falls at home. Will undergo a septic type work-up. Given a fluid bolus. P.o. Tylenol. CAT scan of his head and chest x-ray will be obtained. At this time he is way too weak to stand or get out of bed he will need to be admitted. 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 Repeat exam at 10:06 PM. Patient doing well unchanged. He is way too weak to try to stand or get out of bed. COVID came back positive. I have already spoken to the hospitalist he will be admitted. At this time we will not start him on any antivirals or antibiotics. History & Record Review Discussion w/independent historian: Patient and Family Additional record(s) reviewed:: Prior inpatient record, Prior outpatient record, Prior ED visit and Prior labs Lab Data Attestation: I reviewed the patient's lab results. Lab results narrative: CBC unremarkable white count 6.8. H&H 12.6 39.4. Platelets are slightly low at 118,000. Patient has not prior history of anemia and mild thrombocytopenia compared to prior labs. PT, INR and PTT unremarkable. Electrolytes show a gap of 4. BUN 22 creatinine 1.45. Patient has a history of chronic renal insufficiency. Glucose 145. Liver enzymes unremarkable. COVID-positive. Influenza negative. Labs: Laboratory Results - last 24 hr 11/26/22 11/26/22 11/26/22 21:15 21:15 21:15 WBC 6.8 RBC 4.35 L Hgb 12.6 L Hct 39.4 L MCV 90.6 MCH 29.0 MCHC 32.0 RDW Std Deviation 44.9 H RDW Coeff of Leonie 13.4 Plt Count 118 L MPV 10.9 Immature Gran % (Auto) 0.300 Neut % (Auto) 58.5 Lymph % (Auto) 32.1 Hill % (Auto) 8.9 Eos % (Auto) 0.1 Baso % (Auto) 0.1 Absolute Neuts (auto) 4.0 Absolute Lymphs (auto) 2.17 Nucleated RBC % 0 PT 14.1 INR 1.1 APTT 37.2 H Sodium 141 Potassium 4.1 Chloride 111 H Carbon Dioxide 26.0 Anion Gap 4 L BUN 22 H Creatinine 1.45 H Estim Creat Clear Calc 48.25 Est GFR (MDRD) Af Amer 62 Est GFR (MDRD) Non-Af 51 L BUN/Creatinine Ratio 15.2 Glucose 145 H Calcium 8.6 Total Bilirubin 0.50 AST 15 ALT 34 Alkaline Phosphatase 69 Total Protein 6.0 L Albumin 3.2 Globulin 2.8 Albumin/Globulin Ratio 1.1 Radiography Chest X-Ray - ED: 1 View, Read by ED Physician, Heart, Mediastinum, Bony Structures and Right Infiltrate Diagnostic Testing: Clinical Impression(s) from Imaging Studies Brain CT 11/26/22 20:49 IMPRESSION: No acute intracranial pathology. Significant calcifications involving the intracranial vessels. Chronic small vessel ischemic changes. Paranasal sinus disease without air-fluid levels, likely chronic. Electronically Signed: Cody Aranda DO at 21:50 EDT , Chest X-Ray 11/26/22 21:38 IMPRESSION: 1. Suspected right lower lobe pneumonia however this may be due to large patient size and portable technique. 2. Questionable right pleural effusion. Consider PA and lateral views of the chest. Electronically Signed: Cody Aranda DO at 21:55 EDT , Chest x-ray, portable, single view, interpreted both by the radiologist myself shows a questionable right lower lobe infiltrate cannot rule out an effusion. Rhythm Strip Rhythm Strip: Sinus Rhythm Rate: 66 Ectopy: None EKG Initial EKG: Attestation: I personally reviewed and interpreted this EKG as follows: Interpretation: Sinus Rhythm and No Acute Injury Pattern Comments: Normal sinus rhythm rate of 66. Right bundle branch block. No acute signs of ME nor ischemia. Management Discussion w/another healthcare provider: Hospitalist Discharge Plan Dx/Rx/DC Orders Clinical Impression: Generalized weakness, History of liver transplant, History of renal transplant, Falls, COVID-19, Unable to ambulate, Adult failure to thrive Disposition Disposition: [facility]
[2022-11-26] MEDS: Acetaminophen 500 MG Tablet 1000 MG PO (21:10)
[2022-11-26 21:32] LABS: Absolute Lymphocyte Count 2.17 X10^3/uL (0.83-4.51); Basophil# 0.01 X10^3/uL; Basophil% 0.1 % (0-1); Eosinophil# 0.01 X10^3/uL; Eosinophils% 0.1 % (0-5); Hematocrit 39.4 % (40-54); Hemoglobin 12.6 g/dL (13.0-16.5); Lymphocyte # 2.17 X10^3/ul (0.83-4.51); Lymphocyte % 32.1 % (19-41); Mean Corpuscular Volume 90.6 fL (80-94); Mean Platelet Vol. 10.9 fl (6.2-12.0); Monocyte% 8.9 % (0-10); NRBC Flagged by Analyzer 0 % (0-5); Neutrophil # 3.96 X10^3/uL (2.7-7.7); Neutrophil % 58.5 % (47-70); Platelet Count 118 K/mm3 (150-450); RBC Distribution Width CV 13.4 % (11.6-14.6); RBC Distribution Width SD 44.9 fl (35.1-43.9); Red Blood Count 4.35 M/mm3 (4.6-6.2); White Blood Count 6.8 K/mm3 (4.4-11.0)
--- NOTE | 2022-11-26 21:38 | RAD_ITS ---
INDICATION: weakness EXAMINATION/TECHNIQUE: X-RAY - XR Chest 1 View COMPARISON: October 01, 2021 chest x-ray. Also compared with June 15, 2021 chest x-ray FINDINGS: LINES/DEVICES: None. Overlying heart monitoring wires. LUNGS: Thin linear opacity right upper lobe consistent with scarring, unchanged dating back to June 2021. Right lower lobe partial obscuration right hemidiaphragm is new and concerning for possible pneumonia. PA and lateral views would be helpful in this large patient. Questionable right pleural effusion. No nodule. No pneumothorax. MEDIASTINUM AND CARDIOVASCULAR STRUCTURES: Normal size and contour of the cardiomediastinal silhouette. No evidence of pulmonary vascular congestion. BONES AND SOFT TISSUES: No fracture or focal osseous lesion. Advanced degenerative changes bilateral glenohumeral joints and cervical spine. RAD/Chest 1 View (Portable) IMPRESSION: 1. Suspected right lower lobe pneumonia however this may be due to large patient size and portable technique. 2. Questionable right pleural effusion. Consider PA and lateral views of the chest. Electronically Signed: Cody Aranda DO at 21:55 EDT ,
[2022-11-26 21:40] LABS: International Normalized Ratio 1.1; Prothrombin Time (Protime)PT. 14.1 SECONDS (11.7-14.9)
[2022-11-26 21:41] LABS: Partial Thromboplast Time 37.2 Seconds (24.1-36.2)
[2022-11-26 21:42] VITALS: BMI 42.7
[2022-11-26 21:57] LABS: ALB/GLOB Ratio 1.1 RATIO (0.9-2.4); AST(SGOT) 15 U/L (15-37); Alanine Aminotransfer ALT/SGPT 34 U/L (16-61); Albumin, Serum 3.2 g/dL (3.2-5.0); Alkaline Phosphatase 69 U/L (45-117); Anion Gap 4 (5-15); BUN 22 mg/dL (7-18); BUN/Creat Ratio 15.2 RATIO (10-20); Calcium,Total 8.6 mg/dL (8.5-10.1); Chloride 111 mmol/L (98-107); Creatinine, Serum 1.45 mg/dL (0.70-1.30); EST Glomerular Filtration Rate 51 mL/min (>60); Est Glom Filt Rate - Afr Amer 62 mL/min (>60); Estimated Creatinine Clearance 48.25 ml/min; Globulin 2.8 g/dL (2.2-4.2); Glucose 145 mg/dL (74-106); Potassium 4.1 mmol/L (3.5-5.1); Sodium Level 141 mmol/L (136-145)
[2022-11-26 22:07] LABS: Bacteria 0 SEEN /hpf (None Seen); Mucous, Urine 0 SEEN /hpf (<or=2+); Red Blood Cells-Urine 0 SEEN /hpf (0-5); Squamous Epithelial Cells - UA 0 SEEN /hpf (0-5)
--- NOTE | 2022-11-26 22:07 | PCM.HP.STD ---
HPI - General General Date of Admission: 11/26/22 Date of Service: 11/26/22 Chief Complaint: Frequent falls, debility, recent SNF discharge. HPI Narrative The patient is a 72 y/o M w/ PMHx: Chronic anemia/AOCD, Asthma, CKD stage IIIa, Nonobstructive CAD, Morbid Obesity, Hx Dooley's Palsy, HTN, HLD, ESRD prior on HD s/p Renal Transplant, NALD w/ Cirrhosis s/p Liver Transplant, PAUL on CPAP q HS, Hx L renal artery stenosis, Hx TIA/CVA, Chronic pain syndrome, recent discharge 11/07/22 following evaluation and treatment of hypertensive emergency with dizziness and confusion as well as elevated Cr mildly above baseline with improvement of both renal fx and BP with CT head without acute findings who now re-presents to the [facility] ED on 11/26/22 with reported discharge from SNF where he had transitioned 11/16/22 now reporting increasing weakness, debility, frequent falls with inability to take care of himself safely prompting to bring him to the ED for evaluation. and family were unable to get him up after his most recent fall. He has also had reported mild nausea and emesis on day of presentation. Patient of note has recently been home with a viral syndrome of unclear specific type. He does report increased sputum secretions but no specific cough or dyspnea. His son and his daughter in law have also had a recent viral illness. Work-up in the ED included T 99.8, HR 74, RR 24, BP 164/96, 90% oxygenation on 2L NC upon ED presentation which EMS has started secondary to reported hypoxia but unclear level, CBC w/ WBC 6.8, Hgb 12.6, Plts 118 without marked shift, coags with PTT 37.2 otherwise unremarkable, CMP with chloride 111, BUN/creatinine 22/1.45, glucose 145 otherwise [place] profile not marked appearing, CXR with suspected right lower lobe pneumonia however could be secondary to patient habitus and technique with questionable concurrent right pleural effusion, CT head with no acute intracranial pathology with calcifications involving the intracranial vessels and chronic small vessel ischemic changes with paranasal sinus disease without any air-fluid levels likely chronic, blood culture pending per ED, rapid influenza and COVID antigens and lactic acid pending upon requested evaluation of patient. In the ED patient administered tylenol 1,000 mg po x 1. PFSH Medical History Anemia Asthma Atherosclerotic heart disease of [place] coronary artery without angina pectoris Chronic kidney disease, stage 3a Chronic nonalcoholic liver disease Chronic pain syndrome Cirrhosis of liver End stage renal failure on dialysis Essential (primary) hypertension GERD (gastroesophageal reflux disease) History of CVA (cerebrovascular accident) (06/2021) History of non-ST elevation myocardial infarction (NSTEMI) (03/30/20) Hydronephrosis Immunosuppression Left renal artery stenosis Morbid obesity Obstructive sleep apnea Osteoarthritis Renal calculi Segmental and somatic dysfunction of lumbar region Superficial thrombophlebitis TIA (transient ischemic attack) Home Medications pantoprazole 40 mg tablet,delayed release (Protonix) 40 mg PO DAILY gerd 12/20/19 [History Last Taken 10/01/21] oxybutynin chloride 10 mg tablet,extended release 24 hr 10 mg PO DAILY bladder 03/29/20 [History Last Taken 10/01/21] prednisone 5 mg tablet 5 mg PO DAILY anti rejection 03/29/20 [History Last Taken 10/01/21] aspirin 81 mg tablet,delayed release (Adult Low Dose Aspirin) 81 mg PO DAILY HEART HEALTH 04/15/20 [History Last Taken 10/01/21] tacrolimus 1 mg capsule,extended release 24 hr 1 mg PO BID liver transplant 04/15/20 [History Last Taken 10/01/21] zafirlukast 20 mg tablet (Accolate) 20 mg PO Q12H BREATHING 04/15/20 [History Last Taken 10/01/21] sulfamethoxazole 400 mg-trimethoprim 80 mg tablet 2 tab PO MOWEFR preventative atb 07/17/20 [History Last Taken 10/01/21] oxycodone 5 mg tablet 5 mg PO TID PRN pain 3 days #12 tabs 10/06/21 [Rx Last Taken Unknown] atorvastatin 40 mg tablet 40 mg PO QHS CHOLESTEROL #90 tabs 01/26/22 [Rx Last Taken 11/01/22] doxazosin 8 mg tablet 8 mg PO QAM bp #90 tabs 10/06/22 [Rx Last Taken Unknown] nifedipine 90 mg tablet,extended release 24 hr (Procardia XL) 90 mg PO DAILY HEART #90 tabs 10/10/22 [Rx Last Taken Unknown] allopurinol 300 mg tablet 300 mg PO DAILY GOUT 11/02/22 [History Last Taken Unknown] clopidogrel 75 mg tablet 75 mg PO DAILY BLOOD THINNER 11/02/22 [History Last Taken Unknown] mycophenolate mofetil 250 mg capsule 500 mg PO BID Antirejection 11/02/22 [History Last Taken 11/02/22] nystatin 100,000 unit/gram topical powder (Nystop) 1 applic topical BID Skin 11/02/22 [History Last Taken Unknown] carvedilol 25 mg tablet (Coreg) 50 mg PO BID BP 11/07/22 [History Last Taken Unknown] acetaminophen 500 mg tablet 1,000 mg PO Q6H PRN PRN Pain Score 1-5 #0 tabs 11/16/22 [Rx Last Taken Unknown] Allergy/AdvReac Type Severity Reaction Status Date / Time metformin Allergy Other Verified 11/26/22 20:35 pregabalin [From Lyrica] Allergy Other Verified 11/26/22 20:35 Family History (Updated 11/26/22 @ 22:[address] Patria Damon MD) Grandmother PGM diabetes Paternal GM. Father Heart disease CVA (cerebral vascular accident) Hypertension Mother Parkinson disease Surgical History History of knee replacement History of left heart catheterization (04/03/20) History of stent insertion of renal artery (2014) Kidney transplant recipient (07/13/12) Kidney transplant recipient Liver transplant recipient (07/13/12) Social History household members: spouse Smoking Status: Never smoker second hand exposure: No alcohol intake: never substance use type: does not use caffeine: Yes frequency: 3-4 times per week ROS ROS Narrative Admission Review of Systems: CONSTITUTIONAL: No weight loss, fever, chills, + weakness or fatigue. Low grade T noted in the ED. HEENT: Eyes: No visual loss, blurred vision, double vision or yellow sclerae. Ears, Nose, Throat: No hearing loss, sneezing, congestion, runny nose or sore throat. SKIN: + Chronic stasis skin changes of as well as very staged ecchymoses with recent lab draw/IV placements CARDIOVASCULAR: + Very chronic mild peripheral edema no chest pain, chest pressure or chest discomfort, palpitations, orthopnea, syncopal events. RESPIRATORY: + Increased mucus/secretions but no no shortness of breath, cough, wheezing, hemoptysis. GASTROINTESTINAL: + anorexia, No nausea, vomiting or diarrhea, abdominal pain, melena, BRBPR. GENITOURINARY: No dysuria, frequency, urgency or retention. NEUROLOGICAL: + Hx prior CVA, Recent frequent falls. No headache, dizziness, syncope, paralysis, ataxia, numbness or tingling in the extremities, focal weakness, change in bowel or bladder control, seizure. MUSCULOSKELETAL: + muscle, back pain, joint pain or stiffness. HEMATOLOGIC: + anemia, bleeding or bruising. LYMPHATICS: No enlarged nodes. No history of splenectomy. PSYCHIATRIC: No history of depression or anxiety. ENDOCRINOLOGIC: No reports of sweating, cold or heat intolerance. No polyuria or polydipsia. ALLERGIES: + history of asthma, rhinitis. Vital Signs Vital Signs Vital Signs: 11/26/22 20:31 Temperature 99.8 F H Temperature Source Oral Pulse Rate 74 Respiratory Rate 24 H Blood Pressure 164/96 H Blood Pressure Mean 118 Pulse Ox 90 Oxygen Delivery Method Room Air Weight Weight: 297 lb 9.985 oz Body Mass Index (BMI) 42.7 Physical Exam Narrative Physical Examination: General: Awake, alert, oriented x 3 and cooperative, seated upright in the ED bed, fatigued appearing Skin: Normal color, normal turgor, no icterus, no cyanosis except bilateral lower extremity venous stasis skin changes as well as very staged ecchymoses with likely from recent lab draws and IV. HEENT: AT/NC, EOMI, PERRLA, mildly dry MM, no carotid bruits or JVD noted; however, thickened neck makes evaluation difficult. Lungs: Significantly diminished, greater bases, mildly increased respiratory rate but no distress no rales, ronchi or wheezing. Heart: Regular rate and rhythm; no gallop, rub audible. Abdomen: Soft, morbidly obese, NTTP, difficult to assess distention given habitus, distant bowel sounds, unable to discern HSM secondary to morbidly obese habitus. Extremities: No cyanosis, no clubbing, see skin, very mild peripheral distal suspect chronic edema Neurological: Patient awake, alert, oriented as noted, cognitive function intact; pupils equally reactive to light and accommodation, cranial nerves grossly normal, moving all 4 extremities, strength moderately to severely global decrease secondary to acute presentation compounded by recent prolonged admission. Psychiatric: Affect appears fatigued, no acute evidence of depressive or anxiety feelings. Results Lab / Micro Data Result Diagrams: 11/26/22 21:15 11/26/22 21:15 Labs: Laboratory Results - last 24 hr 11/26/22 21:15: WBC 6.8, RBC 4.35 L, Hgb 12.6 L, Hct 39.4 L, MCV 90.6, MCH 29.0, MCHC 32.0, RDW Std Deviation 44.9 H, RDW Coeff of Leonie 13.4, Plt Count 118 L, MPV 10.9, Immature Gran % (Auto) 0.300, Neut % (Auto) 58.5, Lymph % (Auto) 32.1, [place] % (Auto) 8.9, Eos % (Auto) 0.1, Baso % (Auto) 0.1, Absolute Neuts (auto) 4.0, Absolute Lymphs (auto) 2.17, Nucleated RBC % 0 11/26/22 21:15: Sodium 141, Potassium 4.1, Chloride 111 H, Carbon Dioxide 26.0, Anion Gap 4 L, BUN 22 H, Creatinine 1.45 H, Estim Creat Clear Calc 48.25, Est GFR (MDRD) Af Amer 62, Est GFR (MDRD) Non-Af 51 L, BUN/Creatinine Ratio 15.2, Glucose 145 H, Calcium 8.6, Total Bilirubin 0.50, AST 15, ALT 34, Alkaline Phosphatase 69, Total Protein 6.0 L, Albumin 3.2, Globulin 2.8, Albumin/Globulin Ratio 1.1 11/26/22 21:15: PT 14.1, INR 1.1, APTT 37.2 H Radiology Impression Brain CT 11/26/22 20:49 IMPRESSION: No acute intracranial pathology. Significant calcifications involving the intracranial vessels. Chronic small vessel ischemic changes. Paranasal sinus disease without air-fluid levels, likely chronic. Electronically Signed: Cody Aranda DO at 21:50 EDT , Chest X-Ray 11/26/22 21:38 IMPRESSION: 1. Suspected right lower lobe pneumonia however this may be due to large patient size and portable technique. 2. Questionable right pleural effusion. Consider PA and lateral views of the chest. Electronically Signed: Cody Rosi, DO at 21:55 EDT , Assessment & Plan Assessment/Plan (1) Generalized weakness: PLAN: Plan The patient is a 72 y/o M w/ PMHx: Chronic anemia/AOCD, Asthma, CKD stage IIIa, Nonobstructive CAD, Morbid Obesity, Hx Dooley's Palsy, HTN, HLD, ESRD prior on HD s/p Renal Transplant, NALD w/ Cirrhosis s/p Liver Transplant, PAUL on CPAP q HS, Hx L renal artery stenosis, Hx TIA/CVA, Chronic pain syndrome, recent discharge 11/07/22 following evaluation and treatment of hypertensive emergency with dizziness and confusion as well as elevated Cr mildly above baseline with improvement of both renal fx and BP with CT head without acute findings who now re-presents to the [facility] ED on 11/26/22 with reported discharge from SNF where he had transitioned 11/16/22 now reporting increasing weakness, debility, frequent falls with inability to take care of himself safely prompting to bring him to the ED for evaluation with ill contact at home as well as his son and his recently being ill as well with viral syndrome over the last 1 week. #1. Frequent falls, weakness with adult failure to thrive suspected secondary to Possible right lower lobe pneumonia with recent prolonged admission, possible gram-negative/gram-positive organism (lower suspicion), possible aspiration (lower suspicion) versus Acute Viral Syndrome (high suspicion, possibly COVID) given also recently ill with acute viral syndrome (unclear organism) with associated Acute Hypoxia: Will admit to medical surgical floor, will maintain on oxygen with wean as tolerated to room air, continue ATC budesonide, PRN albuterol, maintain on IV Zosyn with MRSA screen with addition of vancomycin if positive given recent lengthy admission w/ de-escalation if results with + viral etiology, HOB, IS parameters w/ pending sputum cultures, full respiratory viral panel and if antigen negative would also obtain COVID PCR in addition to urine antigens, procalcitonin, given significant morbidly obese habitus we will also repeat PA and lateral chest x-ray in a.m to further elucidate. If COVID positive would initiate IV decadron and evaluate for remdesivir given hypoxia with EMS and need for 2L NC to currently maintain saturation 90-93%. Bld cx x 2 obtained in the ED. PT/OT/ST/case management consultation for discharge planning. #2. Thrombocytopenia, suspect related with acute infectious presentation #1: Admission Plts 118, baseline appears 140-160 primarily, last noted 11/15/22 Plts 180, repeat CBC in AM. #3. Hyperglycemia, mild: Admission glucose 145, likely stress response, will obtain hemoglobin A1c to be cautious. #4. Nonobstructive CAD: Will continue home asa, plavix, statin, BB, not on ACEI/ARB likely secondary to underlying renal disease/transplant status. #5. 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 We will continue consultation with Dr. Mcadams nephrology service for dialysis regimen. Given infectious presentation will temporarily hold cellcept and if COVID positive would hold prednisone given decadron usage with resumption once completed regimen. #6. Chronic Pain Syndrome: Patient prior on chronic pain regimen with ongoing evaluation with Dr. Beckman, on chronic oxycodone regimen. #7. AOCD/Chronic anemia: Admission Hgb 12.6, last noted Hgb 11/15/22 12.5, basleine prior 13, will continue to trend. #8. Hx CVA/TIA: Will continue home asa, plavix, statin, HTN regimen as noted. #9. Hx L renal artery stenosis: s/p renal artery stent placement, will continue home asa, plavix, statin, HTN regimen as noted. #10. Hypertension w/ recent HTN emergency, resolved: Continue home regimen including doxazosin, nifedipine, Coreg, PRN hydralazine. #11. Hyperlipidemia: We will continue patient on statin therapy. #12. Asthma: Not on chronic regimen, given acute presentation #1 we will maintain on scheduled budesonide, will have PRN albuterol, encourage HOB and IS, continue home zafirlukast regimen. #13. Gout: Will continue patient home allopurinol regimen. #14. Morbid Obesity: Weight loss and lifestyle changes encouraged. #15. GERD: We will continue home PPI. #16. PAUL: CPAP q HS. #17. DVT Prophylaxis: Heparin. #18. CODE status: Patient HCPOA is his and living will is living will is in place. Discussed CODE status at length including difference between FULL code, DNR-CCA and DNR-CC status. Following discussions about the differences in these status, requested DNR-CCA, no intubation status. Admission Evaluation Time spent evaluating chart, patient history, patient evaluation, care planning and discussion with specialists: 75 minutes. Charges/Coding Visit Charges Inpatient E&M: 61227 Init Hosp L3
[2022-11-26 22:09] LABS: Color, Urine Yellow (Yellow); Glucose, Dipstick Normal (Normal); Ketone-Dipstick Negative (Negative); Leukocyte Esterase-Dipstick 500 /ul (Negative); Nitrite-Dipstick Negative (Negative); Occult Blood-Urine 50 /ul (Negative); Protein-Dipstick 100 mg/dl (Negative); Specific Gravity, Urine 1.015 (1.002-1.030); Urine Bilirubin Dipstick Negative (Negative); Urine Clarity Clear (Clear); Urine Urobilinogen Normal (Normal)
--- NOTE | 2022-11-26 22:30 | RAD_ITS ---
INDICATION: lateral view only EXAMINATION/TECHNIQUE: X-RAY - XR Chest 1 View COMPARISON: Portable AP view of the chest from earlier the same evening. Also compared with September 07, 2021 chest x-ray. FINDINGS: LINES/DEVICES: None. LUNGS: No pleural effusion demonstrated. Limited assessment of the lungs with underpenetrated exam due to patient size and portable technique. The suspected right lower lobe airspace disease is not clearly exemplified on this exam but assessment is limited due to technique and patient size. Chronic thin linear opacity posterior right lung is unchanged 18 2 September 07, 2021. MEDIASTINUM AND CARDIOVASCULAR STRUCTURES: Normal size and contour of the cardiomediastinal silhouette. No evidence of pulmonary vascular congestion. BONES AND SOFT TISSUES: No fracture or focal osseous lesion. RAD/Chest 1 View (Portable) IMPRESSION: 1. No pleural effusion. 2. No abnormality within limits the exam; limited assessment due to large patient size and portable technique. Dedicated, nonportable, PA and lateral views of the chest would be a more appropriate exam in this large patient, if patient is able. Electronically Signed: Cody Aranda DO at 23:03 EDT ,
[2022-11-26 22:34] LABS: Lactic Acid 1.2 mmol/L (0.4-1.9)
[2022-11-26 22:37] LABS: White Blood Cells 10-25 SEEN /hpf (0-5)
[2022-11-26 22:41] VITALS: BP 131/80; PULSE 64; RESP 21; TEMP 37.3; O2SAT 93
[2022-11-26 23:05] VITALS: BP 128/69; PULSE 60; RESP 18; TEMP 37.2; O2SAT 94
[2022-11-26 23:06] VITALS: BMI 43.4
[2022-11-26 23:09] LABS: Procalcitonin 0.45 ng/mL (0.00-0.09)
[2022-11-26 23:10] LABS: D-Dimer Quantitative (DVT/PE) 1.82 FEU/ug/m (0.27-0.49)
[2022-11-26 23:14] LABS: Ferritin 396 ng/mL (26-388); LDH 188 U/L (87-241); Troponin-I HS 34 pg/mL (3.0-78.0)
[2022-11-26 23:20] LABS: BNP,B-Type NATRIURETIC PEPTIDE 156.8 pg/mL (0-100)
[2022-11-27] VITALS (8 sets, daily range): BP systolic 138–162; BP diastolic 72–85; PULSE 60–83; RESP 16–19; TEMP 36.6–37.2; O2SAT 93–96; BMI 43.2
[2022-11-27] MEDS: 0.9% Normal Saline 1,000 ML 100 ML IV ×2 (00:07→08:31)
--- NOTE | 2022-11-27 00:23 | VDLE_ITS ---
Reason For Study: Elevated D-Dimer RIGHT LEFT Rt GSV is compressible Lt GSV is compressible Rt CFV is compressible Lt CFV is compressible Rt FV is compressible Lt FV is compressible Rt PopV is compressible Lt PopV is compressible Rt T/P Trunk is compressible Lt T/P Trunk is compressible Rt PTV is compressible Lt PTV is compressible Rt PeroV is compressible. Lt PeroV is compressible Procedure This is a venous duplex using B-mode, color Incidental finding: Lt Pop A measures 1.59cm flow and spectral Doppler. x 1.64cm and is partially thrombosed. Exam performed portable in patient room. The exam was abbreviated due to the COVID 19 protocol. A preliminary report was called and/or faxed to [facility]. VL/Venous Duplex US - [place] Extrem Interpretation Summary No evidence for acute deep venous thrombosis bilateral lower extremities with p atent and compressible bilateral great saphenous veins. 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
[2022-11-27 06:28] LABS: Absolute Lymphocyte Count 2.51 X10^3/uL (0.83-4.51); Absolute Neutrophil Count 2.2 X10^3/uL (2.0-7.7); Eosinophil# 0.02 X10^3/uL; Eosinophils% 0.4 % (0-5); Hematocrit 35.7 % (40-54); Hemoglobin 11.3 g/dL (13.0-16.5); Lymphocyte # 2.51 X10^3/ul (0.83-4.51); Lymphocyte % 47.9 % (19-41); Mean Corp Hgb Conc 31.7 g/dL (32-36); Mean Corpuscular Hgb 29.3 pg (27.0-32.0); Mean Corpuscular Volume 92.5 fL (80-94); Mean Platelet Vol. 10.8 fl (6.2-12.0); Monocyte# 0.49 X10^3/uL; Monocyte% 9.4 % (0-10); NRBC Flagged by Analyzer 0 % (0-5); Neutrophil # 2.19 X10^3/uL (2.7-7.7); Neutrophil % 41.7 % (47-70); Platelet Count 101 K/mm3 (150-450); RBC Distribution Width SD 47.3 fl (35.1-43.9); Red Blood Count 3.86 M/mm3 (4.6-6.2); White Blood Count 5.2 K/mm3 (4.4-11.0)
[2022-11-27 07:04] LABS: AST(SGOT) 18 U/L (15-37); Alanine Aminotransfer ALT/SGPT 29 U/L (16-61); Albumin, Serum 2.6 g/dL (3.2-5.0); Alkaline Phosphatase 56 U/L (45-117); Anion Gap 3 (5-15); BUN 21 mg/dL (7-18); BUN/Creat Ratio 16.5 RATIO (10-20); Calcium,Total 8.1 mg/dL (8.5-10.1); Chloride 115 mmol/L (98-107); Creatinine, Serum 1.27 mg/dL (0.70-1.30); EST Glomerular Filtration Rate 59 mL/min (>60); Est Glom Filt Rate - Afr Amer 72 mL/min (>60); Estimated Creatinine Clearance 55.09 ml/min; Globulin 2.5 g/dL (2.2-4.2); Glucose 112 mg/dL (74-106); Potassium 3.9 mmol/L (3.5-5.1); Protein, Total 5.1 g/dL (6.4-8.2); Sodium Level 141 mmol/L (136-145)
[2022-11-27] MEDS: Budesonide Respules 0.5 MG/2 ML AMPUL.NEB. INHALATION ×2 (07:30→20:16)
[2022-11-27] MEDS: NIFEdipine 90 MG Tablet PO (08:31)
[2022-11-27] MEDS: Clopidogrel Bisulfate 75 MG Tablet PO (08:31)
[2022-11-27] MEDS: Carvedilol 25 MG Tablet 50 MG PO ×2 (08:31→16:12)
[2022-11-27] MEDS: Allopurinol 300 MG Tablet PO (08:31)
[2022-11-27] MEDS: Menthol/Lanolin/Calamine/Znox 113 GM Tube 1 APPLIC TOPICAL ×4 (08:32→21:24)
[2022-11-27] MEDS: Aspirin E.C. 81 MG Tablet PO (08:32)
[2022-11-27] MEDS: Nystatin Powder 15gm Bottle 1 APPLIC TOPICAL ×2 (08:32→21:26)
[2022-11-27] MEDS: dexAMETHasone 4 MG/ML Vial 6 MG IV (08:32)
[2022-11-27] MEDS: Doxazosin 4 MG Tablet 8 MG PO (08:32)
[2022-11-27] MEDS: Tolterodine Tartrate 2 MG CAP.SA PO (08:32)
[2022-11-27] MEDS: Tacrolimus Anhydrous 1 MG Capsule PO ×2 (08:33→21:26)
[2022-11-27] MEDS: Pantoprazole Sodium 40 MG Tablet PO (08:33)
[2022-11-27] MEDS: Acetaminophen 325 MG Tablet 650 MG PO ×3 (08:39→21:27)
--- NOTE | 2022-11-27 08:55 | PN.HOSP_ITS ---
Reason for Visit Reason for Visit: Diagnoses Weakness (11/26/22) Follow-up for generalized weakness, fatigue, failure to thrive, COVID-19 infection with low-grade fever with possible pneumonia Subjective Subjective Patient is very fatigued, could not ambulate.? Patient is mainly weak but denies any acute onset of cough.? Tmax 99.8 Fahrenheit.? He has generalized weakness, muscle aches and pain. Objective Data Objective Data Vital Signs: Vital Signs Temp Pulse Resp BP Pulse Ox O2 Del Method O2 Flow Rate 98.9 F 77 19 H 139/85 H 95 Nasal Cannula 2 11/27/22 02:51 11/27/22 07:25 11/27/22 07:25 11/27/22 02:51 11/27/22 08:29 11/27/22 08:29 11/27/22 08:29 FiO2 94 11/27/22 01:16 Oxygen Flow Rate (L/min) 2 Oxygen Delivery Method Nasal Cannula Weight: 302 lb 7.587 oz Body Mass Index (BMI) 43.2 Intake & Output: Intake and Output for Last 24 Hours 11/25/22 11/26/22 11/27/22 23:59 23:59 23:59 Intake Total 500 / 500 1190 / 1190 Output Total 350 / 350 Balance 500 / 500 840 / 840 Lab / Micro Data Result Diagrams: 11/27/22 06:05 11/27/22 06:05 Labs: Laboratory Results - last 24 hr 11/26/22 21:15: WBC 6.8, RBC 4.35 L, Hgb 12.6 L, Hct 39.4 L, MCV 90.6, MCH 29.0, MCHC 32.0, RDW Std Deviation 44.9 H, RDW Coeff of Leonie 13.4, Plt Count 118 L, MPV 10.9, Immature Gran % (Auto) 0.300, Neut % (Auto) 58.5, Lymph % (Auto) 32.1, [place] % (Auto) 8.9, Eos % (Auto) 0.1, Baso % (Auto) 0.1, Absolute Neuts (auto) 4.0, Absolute Lymphs (auto) 2.17, Nucleated RBC % 0 11/26/22 21:15: Sodium 141, Potassium 4.1, Chloride 111 H, Carbon Dioxide 26.0, Anion Gap 4 L, BUN 22 H, Creatinine 1.45 H, Estim Creat Clear Calc 48.25, Est GFR (MDRD) Af Amer 62, Est GFR (MDRD) Non-Af 51 L, BUN/Creatinine Ratio 15.2, Glucose 145 H, Calcium 8.6, Total Bilirubin 0.50, AST 15, ALT 34, Alkaline Phosphatase 69, Total Protein 6.0 L, Albumin 3.2, Globulin 2.8, Albumin/Globulin Ratio 1.1 11/26/22 21:15: Lactic Acid 1.2 11/26/22 21:15: PT 14.1, INR 1.1, APTT 37.2 H 11/26/22 21:15: D-Dimer Quant (PE/DVT) 1.82 H* 11/26/22 21:15: Ferritin 396 H, Lactate Dehydrogenase 188, Troponin I High Sens 34, C-React Prot Ext Range 39.20 H 11/26/22 21:15: B-Natriuretic Peptide 156.8 H 11/26/22 21:53: Urine Color Yellow, Urine Clarity Clear, Urine pH 5.0, Ur Specific [place] 1.015, Urine Protein 100 H, Urine Glucose (UA) Normal, Urine Ketones Negative, Urine Occult Blood 50 H, Urine Nitrite Negative, Urine Bilirubin Negative, Urine Urobilinogen Normal, Ur Leukocyte Esterase 500 H, Urine RBC 0 SEEN, Urine WBC 10-25 SEEN, Ur Squamous Epith Cells 0 SEEN, Urine Bacteria 0 SEEN, Urine Mucus 0 SEEN 11/26/22 22:37: Procalcitonin 0.45 H 11/27/22 00:05: COVID-19 (GUNNAR) Detected 11/27/22 06:05: WBC 5.2, RBC 3.86 L, Hgb 11.3 L, Hct 35.7 L, MCV 92.5, MCH 29.3, MCHC 31.7 L, RDW Std Deviation 47.3 H, RDW Coeff of Leonie 14.0, Plt Count 101 L, MPV 10.8, Immature Gran % (Auto) 0.600, Neut % (Auto) 41.7 L, Lymph % (Auto) 47.9 H, [place] % (Auto) 9.4, Eos % (Auto) 0.4, Baso % (Auto) 0.0, Absolute Neuts (auto) 2.2, Absolute Lymphs (auto) 2.51, Nucleated RBC % 0 11/27/22 06:05: Sodium 141, Potassium 3.9, Chloride 115 H, Carbon Dioxide 23.0, Anion Gap 3 L, BUN 21 H, Creatinine 1.27, Estim Creat Clear Calc 55.09, Est GFR (MDRD) Af Amer 72, Est GFR (MDRD) Non-Af 59 L, BUN/Creatinine Ratio 16.5, Glucose 112 H, Calcium 8.1 L, Total Bilirubin 0.40, AST 18, ALT 29, Alkaline Phosphatase 56, Total Protein 5.1 L, Albumin 2.6 L, Globulin 2.5, Albumin/Glob ulin Ratio 1.0 Micro: Microbiology 11/27/22 00:05 Mucosa - Nose Respiratory Panel (PCR) - Final 11/26/22 21:53 Urine, Clean Catch Legionella Antigen - Final 11/26/22 21:53 Urine, Clean Catch Streptococcus pneumoniae Antigen (M - Final 11/26/22 21:15 Nasal Secretion SARS-CoV-2 & FLU Antigen (Rapid) - Final SARS-CoV-2 (COVID 19) Radiography Diagnostic Testing: Radiology Impression Brain CT 11/26/22 20:49 IMPRESSION: No acute intracranial pathology. Significant calcifications involving the intracranial vessels. Chronic small vessel ischemic changes. Paranasal sinus disease without air-fluid levels, likely chronic. Electronically Signed: Cody Aranda DO at 21:50 EDT , Chest X-Ray 11/26/22 21:38 IMPRESSION: 1. Suspected right lower lobe pneumonia however this may be due to large patient size and portable technique. 2. Questionable right pleural effusion. Consider PA and lateral views of the chest. Electronically Signed: Cody Aranda DO at 21:55 EDT , Chest X-Ray 11/26/22 22:30 IMPRESSION: 1. No pleural effusion. 2. No abnormality within limits the exam; limited assessment due to large patient size and portable technique. Dedicated, nonportable, PA and lateral views of the chest would be a more appropriate exam in this large patient, if patient is able. Electronically Signed: Cody DO Rosi at 23:03 EDT , Rhythm Strip Rhythm Strip: Sinus Rhythm Rate: 66 Ectopy: None Physical Exam Narrative General: Alert, Oriented x3, Cooperative, morbid obesity BMI 43.4 kg/m? HEENT: Atraumatic, PERRLA, EOMI, Normocephalic Oral: Oral mucosa moist.? No Gingival or Mucosal Lesions/ Ulcerations Neck: Supple, No JVD, Negative Carotid Bruits Lungs:? Air entry diminished in bilateral lung bases.? No crepitation/rhonchi.? Could not be evaluated chest, posteriorly.? Pulse ox 90% on room air, 95% on 2 L of oxygen Cardiovascular: Regular rate, Regular Rhythm, Normal S1, Normal S2, No murmurs Abdomen: Bowel Sounds Present, Soft, Non Tender, Non-Distended : No renal angle tenderness.? No suprapubic tenderness. Extremities: No edema, Capillary Refill Less than 3 Seconds Skin: No rashes, No breakdown Musculoskeletal: Could not sit up/turn around on his own, cannot evaluate his back.? Generalized tenderness in the upper and lower extremity muscles.? ROM and muscle strength could not be evaluated Neurological: Cranial nerves II-XII grossly intact, DTR? 2+/4 no sensory change Psych/Mental Status: Flat affect. Assessment & Plan Assessment/Plan (1) Generalized weakness: PLAN: Plan The patient is a 72 y/o M who was brought to ED by family for multiple, 3 falls on the day of admission along with generalized weakness, inability to ambulate and chronic pain taking oxycodone. Patient does not have paresthesia loss of consciousness. The patient had prior liver and kidney transplant. #1. Frequent falls, weakness with adult failure to thrive suspected secondary to possible right lower lobe pneumonia, COVID 19 pneumonia Patient was recently discharged from TCU a week ago. There was concern of right lower lobe pneumonia. Patient afebrile, pulse ox 90% on room air nonlabored breathing. Chest x-ray individually reviewed and is limited because of morbid obesity, portable nature. Repeat PA and lateral views was done which does not s how any right pleural effusion but possible right lower lobe scarring/atelectasis. Rapid SARS-CoV-2 antigen positive but flu antigen negative. Respiratory panel negative. D-dimer was elevated and bilateral venous duplex ordered. Patient on therapeutic Lovenox. Patient does not satisfy criteria of sepsis therefore sepsis ruled out. Patient is immunocompromised therefore cannot mount inflammatory reaction/response, low-grade temperature therefore started on IV Decadron and remdesivir. ID consult requested #2. Acute on chronic thrombocytopenia probably due to viral COVID-19 infection: Patient platelet is gradually decreasing over time. Admitted with 118 K but patient platelet count was low in the past about 1 46,000 in November 2022 130,000 in 2017 #3. Hyperglycemia, mild: Admission glucose 145, likely stress response, will obtain hemoglobin A1c pending. #4. Nonobstructive CAD: l continue home asa, plavix, statin, BB, not on ACEI/ARB likely secondary to underlying renal disease/transplant status. #5. 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 Liver chemistry and kidney function reviewed. ALT AST total bilirubin normal limit. Albumin 2.6, total protein 5.1 low. BUN/creatinine 21/1.27. Creatinine clearance 55 ml/min. Continue patient's immunosuppressive medications including Tacrolimus, Bactrim DS but hold mycophenolate due to COVID-19 infection, thrombocytopenia. If infection and platelet improved can resume mycophenolate #6. Chronic Pain Syndrome: Patient prior on chronic pain regimen with ongoing evaluation with Dr. Beckman, on chronic oxycodone regimen. #7. AOCD/Chronic anemia: Admission Hgb 12.6, last noted Hgb 11/15/22 12.5, basleine prior 13, will continue to trend. #8. Hx CVA/TIA: Will continue home asa, plavix, statin, HTN regimen as noted. #9. Hx L renal artery stenosis: s/p renal artery stent placement, will continue home asa, plavix, statin, HTN regimen as noted. #10. Hypertension w/ recent HTN emergency, resolved: Continue home regimen including doxazosin, nifedipine, Coreg, PRN hydralazine. Blood pressure normal. #11. Hyperlipidemia: We will continue patient on statin therapy. #12. Asthma: Not on chronic regimen, given acute presentation #1 we will maintain on scheduled budesonide, will have PRN albuterol, encourage HOB and IS, continue home zafirlukast regimen. #13. Gout: continue patient home allopurinol regimen. #14. Morbid Obesity: Weight loss and lifestyle changes encouraged. #15. GERD: continue home PPI. #16. PAUL: CPAP q HS. #17. DVT Prophylaxis: Heparin. #18. CODE status: Patient HCPOA is his and living will is living will is in place. Discussed CODE status at length including difference between FULL code, DNR-CCA and DNR-CC status. Following discussions about the differences in these status, requested DNR-CCA, no intubation status. Total time of the visit including total time spent in counseling or coordination of care, (more than 50% of the total time, spent in obtaining medical information from nurses and other ancillary care providers,explaining to the patient about labs, imaging, diagnosis and management of active complex medical conditions), review of medical chart, dealing with complex medical problems, review of labs and imaging is 55 minutes. Charges/Coding Visit Charges Inpatient E&M: 60888 Subs Hosp L3
--- NOTE | 2022-11-27 10:04 | RAD_ITS ---
STUDY: X-RAY CHEST REASON FOR EXAM: Male, 72 years old. ? PNA TECHNIQUE: PA and lateral views of the chest. COMPARISON: 11/26/2022 FINDINGS: Poor inspiration with some bibasilar atelectasis. There is no demonstrated pleural abnormality. There is moderate cardiac enlargement. Normal mediastinum and deandre. Normal visualized pulmonary arteries. Normal visualized aortic arch and descending thoracic aorta. Normal visualized thoracic spine. Normal visualized ribs, clavicles, and shoulders. There is no demonstrated abnormality of the visualized soft tissue structures of the upper abdomen. RAD/Chest PA and Lateral IMPRESSION: Poor inspiration with some bibasilar atelectasis. Electronically Signed: Wil Alicea MD at 12:18 EDT ,
--- NOTE | 2022-11-27 11:25 | PCM.PN.HOSP ---
Reason for Visit Reason for Visit: Diagnoses Weakness (11/26/22) Follow-up for generalized weakness, fatigue, failure to thrive, COVID-19 infection with low-grade fever with possible pneumonia Subjective Subjective Patient is very fatigued, could not ambulate. Patient is mainly weak but denies any acute onset of cough. Tmax 99.8 Fahrenheit. He has generalized weakness, muscle aches and pain. Objective Data Objective Data Vital Signs: Vital Signs Temp Pulse Resp BP Pulse Ox O2 Del Method O2 Flow Rate 98.9 F 77 19 H 139/85 H 95 Room Air 2 11/27/22 02:51 11/27/22 07:25 11/27/22 07:25 11/27/22 02:51 11/27/22 08:29 11/27/22 09:38 11/27/22 08:29 FiO2 94 11/27/22 01:16 Oxygen Flow Rate (L/min) 2 Oxygen Delivery Method Room Air Weight: 302 lb 7.587 oz Body Mass Index (BMI) 43.2 Intake & Output: Intake and Output for Last 24 Hours 11/25/22 11/26/22 11/27/22 23:59 23:59 23:59 Intake Total 500 / 500 1190 / 1190 Output Total 350 / 350 Balance 500 / 500 840 / 840 Lab / Micro Data Result Diagrams: 11/27/22 06:05 11/27/22 06:05 Labs: Laboratory Results - last 24 hr 11/26/22 21:15: WBC 6.8, RBC 4.35 L, Hgb 12.6 L, Hct 39.4 L, MCV 90.6, MCH 29.0, MCHC 32.0, RDW Std Deviation 44.9 H, RDW Coeff of Leonie 13.4, Plt Count 118 L, MPV 10.9, Immature Gran % (Auto) 0.300, Neut % (Auto) 58.5, Lymph % (Auto) 32.1, [place] % (Auto) 8.9, Eos % (Auto) 0.1, Baso % (Auto) 0.1, Absolute Neuts (auto) 4.0, Absolute Lymphs (auto) 2.17, Nucleated RBC % 0 11/26/22 21:15: Sodium 141, Potassium 4.1, Chloride 111 H, Carbon Dioxide 26.0, Anion Gap 4 L, BUN 22 H, Creatinine 1.45 H, Estim Creat Clear Calc 48.25, Est GFR (MDRD) Af Amer 62, Est GFR (MDRD) Non-Af 51 L, BUN/Creatinine Ratio 15.2, Glucose 145 H, Calcium 8.6, Total Bilirubin 0.50, AST 15, ALT 34, Alkaline Phosphatase 69, Total Protein 6.0 L, Albumin 3.2, Globulin 2.8, Albumin/Globulin Ratio 1.1 11/26/22 21:15: Lactic Acid 1.2 11/26/22 21:15: PT 14.1, INR 1.1, APTT 37.2 H 11/26/22 21:15: D-Dimer Quant (PE/DVT) 1.82 H* 11/26/22 21:15: Ferritin 396 H, Lactate Dehydrogenase 188, Troponin I High Sens 34, C-React Prot Ext Range 39.20 H 11/26/22 21:15: B-Natriuretic Peptide 156.8 H 11/26/22 21:53: Urine Color Yellow, Urine Clarity Clear, Urine pH 5.0, Ur Specific [place] 1.015, Urine Protein 100 H, Urine Glucose (UA) Normal, Urine Ketones Negative, Urine Occult Blood 50 H, Urine Nitrite Negative, Urine Bilirubin Negative, Urine Urobilinogen Normal, Ur Leukocyte Esterase 500 H, Urine RBC 0 SEEN, Urine WBC 10-25 SEEN, Ur Squamous Epith Cells 0 SEEN, Urine Bacteria 0 SEEN, Urine Mucus 0 SEEN 11/26/22 22:37: Procalcitonin 0.45 H 11/27/22 00:05: COVID-19 (GUNNAR) Detected 11/27/22 06:05: WBC 5.2, RBC 3.86 L, Hgb 11.3 L, Hct 35.7 L, MCV 92.5, MCH 29.3, MCHC 31.7 L, RDW Std Deviation 47.3 H, RDW Coeff of Leonie 14.0, Plt Count 101 L, MPV 10.8, Immature Gran % (Auto) 0.600, Neut % (Auto) 41.7 L, Lymph % (Auto) 47.9 H, [place] % (Auto) 9.4, Eos % (Auto) 0.4, Baso % (Auto) 0.0, Absolute Neuts (auto) 2.2, Absolute Lymphs (auto) 2.51, Nucleated RBC % 0 11/27/22 06:05: Sodium 141, Potassium 3.9, Chloride 115 H, Carbon Dioxide 23.0, Anion Gap 3 L, BUN 21 H, Creatinine 1.27, Estim Creat Clear Calc 55.09, Est GFR (MDRD) Af Amer 72, Est GFR (MDRD) Non-Af 59 L, BUN/Creatinine Ratio 16.5, Glucose 112 H, Calcium 8.1 L, Total Bilirubin 0.40, AST 18, ALT 29, Alkaline Phosphatase 56, Total Protein 5.1 L, Albumin 2.6 L, Globulin 2.5, Albumin/Globulin Ratio 1.0 Micro: Microbiology 11/27/22 00:05 Mucosa - Nose Respiratory Panel (PCR) - Final 11/26/22 21:53 Urine, Clean Catch Legionella Antigen - Final 11/26/22 21:53 Urine, Clean Catch Streptococcus pneumoniae Antigen (M - Final 11/26/22 21:15 Nasal Secretion SARS-CoV-2 & FLU Antigen (Rapid) - Final SARS-CoV-2 (COVID 19) Radiography Diagnostic Testing: Radiology Impression Brain CT 11/26/22 20:49 IMPRESSION: No acute intracranial pathology. Significant calcifications involving the intracranial vessels. Chronic small vessel ischemic changes. Paranasal sinus disease without air-fluid levels, likely chronic. Electronically Signed: Cody Aranda DO at 21:50 EDT , Chest X-Ray 11/26/22 21:38 IMPRESSION: 1. Suspected right lower lobe pneumonia however this may be due to large patient size and portable technique. 2. Questionable right pleural effusion. Consider PA and lateral views of the chest. Electronically Signed: Cody Aranda DO at 21:55 EDT , Chest X-Ray 11/26/22 22:30 IMPRESSION: 1. No pleural effusion. 2. No abnormality within limits the exam; limited assessment due to large patient size and portable technique. Dedicated, nonportable, PA and lateral views of the chest would be a more appropriate exam in this large patient, if patient is able. Electronically Signed: Cody Aranda DO at 23:03 EDT , Rhythm Strip Rhythm Strip: Sinus Rhythm Rate: 66 Ectopy: None Physical Exam Narrative Physical exam General: Alert, Oriented x3, Cooperative, morbid obesity BMI 43.4 kg/m? HEENT: Atraumatic, PERRLA, EOMI, Normocephalic Oral: Oral mucosa moist. No Gingival or Mucosal Lesions/ Ulcerations Neck: Supple, No JVD, Negative Carotid Bruits Lungs: Air entry diminished in bilateral lung bases. No crepitation/rhonchi. Could not be evaluated chest, posteriorly. Pulse ox 90% on room air, 95% on 2 L of oxygen Cardiovascular: Regular rate, Regular Rhythm, Normal S1, Normal S2, No murmurs Abdomen: Bowel Sounds Present, Soft, Non Tender, Non-Distended : No renal angle tenderness. No suprapubic tenderness. Extremities: No edema, Capillary Refill Less than 3 Seconds Skin: No rashes, No breakdown Musculoskeletal: Could not sit up/turn around on his own, cannot evaluate his back. Generalized tenderness in the upper and lower extremity muscles. ROM and muscle strength could not be evaluated Neurological: Cranial nerves II-XII grossly intact, DTR 2+/4 no sensory change Psych/Mental Status: Flat affect.
[2022-11-27 17:59] LABS: Hemoglobin A1c 6.6 % (3.8-5.6)
[2022-11-27] MEDS: Atorvastatin Calcium 40 MG Tablet PO (21:24)
[2022-11-27] MEDS: Montelukast 10 MG Tablet PO (21:27)
[2022-11-28] VITALS (7 sets, daily range): BP systolic 145–154; BP diastolic 82–92; PULSE 55–69; RESP 17–20; TEMP 36.8–37.1; O2SAT 93–95; BMI 43.5
[2022-11-28 07:13] LABS: Absolute Lymphocyte Count 1.03 X10^3/uL (0.83-4.51); Absolute Neutrophil Count 2.6 X10^3/uL (2.0-7.7); Hematocrit 40.2 % (40-54); Lymphocyte # 1.03 X10^3/ul (0.83-4.51); Lymphocyte % 26.1 % (19-41); Mean Corp Hgb Conc 29.9 g/dL (32-36); Mean Corpuscular Hgb 29.6 pg (27.0-32.0); Mean Platelet Vol. 10.7 fl (6.2-12.0); Monocyte# 0.26 X10^3/uL; Monocyte% 6.6 % (0-10); NRBC Flagged by Analyzer 0 % (0-5); Neutrophil # 2.63 X10^3/uL (2.7-7.7); Neutrophil % 66.8 % (47-70); POSITIVE COUNT YES; Platelet Count 91 K/mm3 (150-450); Red Blood Count 4.06 M/mm3 (4.6-6.2); White Blood Count 3.9 K/mm3 (4.4-11.0)
[2022-11-28 07:31] LABS: ALB/GLOB Ratio 1.2 RATIO (0.9-2.4); AST(SGOT) 19 U/L (15-37); Alanine Aminotransfer ALT/SGPT 30 U/L (16-61); Albumin, Serum 2.9 g/dL (3.2-5.0); Alkaline Phosphatase 64 U/L (45-117); Anion Gap 6 (5-15); BUN 22 mg/dL (7-18); BUN/Creat Ratio 19.8 RATIO (10-20); Calcium,Total 8.3 mg/dL (8.5-10.1); Chloride 113 mmol/L (98-107); Creatinine, Serum 1.11 mg/dL (0.70-1.30); EST Glomerular Filtration Rate 69 mL/min (>60); Est Glom Filt Rate - Afr Amer 84 mL/min (>60); Estimated Creatinine Clearance 63.03 ml/min; Globulin 2.4 g/dL (2.2-4.2); Glucose 209 mg/dL (74-106); Potassium 4.7 mmol/L (3.5-5.1); Protein, Total 5.3 g/dL (6.4-8.2); Sodium Level 140 mmol/L (136-145)
--- NOTE | 2022-11-28 07:51 | PN.HOSP_ITS ---
Reason for Visit Reason for Visit: Diagnoses Weakness (11/26/22) Subjective Subjective [place] jittery with albuterol. Concerned about not getting his myecophenolate. Objective Data Objective Data Vital Signs: Vital Signs Temp Pulse Resp BP Pulse Ox O2 Del Method O2 Flow Rate 37.1 C 55 L 17 154/84 H 95 Room Air 2 11/28/22 03:12 11/28/22 03:12 11/28/22 03:12 11/28/22 03:12 11/28/22 03:12 11/28/22 07:34 11/28/22 03:12 FiO2 94 11/27/22 01:16 Oxygen Flow Rate (L/min) 2 Oxygen Delivery Method Room Air Weight: 137.2 kg Body Mass Index (BMI) 43.2 Intake & Output: Intake and Output for Last 24 Hours 11/26/22 11/27/22 11/28/22 23:59 23:59 23:59 Intake Total 500 / 500 1648.33 / 1898.33 600 / 600 Output Total 1350 / 1650 700 / 700 Balance 500 / 500 298.33 / 248.33 -100 / -100 Lab / Micro Data Result Diagrams: 11/28/22 06:04 11/28/22 06:04 Labs: Laboratory Results - last 24 hr 11/27/22 06:05: Hemoglobin A1c 6.6 H 11/28/22 06:04: WBC 3.9 L, RBC 4.06 L, Hgb 12.0 L, Hct 40.2, MCV 99.0 H D, MCH 29.6, MCHC 29.9 L D, RDW Std Deviation 48.0 H, RDW Coeff of Leonie 13.0, Plt Count 91 L, MPV 10.7, Immature Gran % (Auto) 0.500, Neut % (Auto) 66.8, Lymph % (Auto) 26.1, [place] % (Auto) 6.6, Eos % (Auto) 0.0, Baso % (Auto) 0.0, Absolute Neuts (auto) 2.6, Absolute Lymphs (auto) 1.03, Nucleated RBC % 0 11/28/22 06:04: Sodium 140, Potassium 4.7, Chloride 113 H, Carbon Dioxide 21.0, Anion Gap 6, BUN 22 H, Creatinine 1.11, Estim Creat Clear Calc 63.03, Est GFR (MDRD) Af Amer 84, Est GFR (MDRD) Non-Af 69, BUN/Creatinine Ratio 19.8, Glucose 209 H, Calcium 8.3 L, Total Bilirubin 0.50, AST 19, ALT 30, Alkaline Phosphatase 64, Total Protein 5.3 L, Albumin 2.9 L, Globulin 2.4, Albumin/Globulin Ratio 1.2 Micro: Microbiology 11/27/22 00:05 Mucosa - Nose Respiratory Panel (PCR) - Final 11/26/22 21:53 Urine, Clean Catch Legionella Antigen - Final 11/26/22 21:53 Urine, Clean Catch Streptococcus pneumoniae Antigen (M - Final 11/26/22 21:15 Nasal Secretion SARS-CoV-2 & FLU Antigen (Rapid) - Final SARS-CoV-2 (COVID 19) Radiography Diagnostic Testing: Radiology Impression Chest X-Ray 11/27/22 10:04 IMPRESSION: Poor inspiration with some bibasilar atelectasis. Electronically Signed: Wil Alicea MD at 12:18 EDT , Rhythm Strip Rhythm Strip: Sinus Rhythm Rate: 66 Ectopy: None Physical Exam Const alert and no apparent distress HEENT head/scalp atraumatic and moist oral mucous membranes Resp normal respiratory effort, no retractions, no use of accessory muscles and clear to auscultation bilaterally Cardio regular rate, regular rhythm, S1 normal heart sound and S2 normal heart sound GI normal to inspection, nondistended, normoactive bowel sounds, soft to palpation, non-tender and non-distended Extremity normal to inspection Skin Skin Narrative: old extensive bruising on abdomen Assessment & Plan Assessment/Plan (1) Generalized weakness: PLAN: Frequent falls, weakness with adult failure to thrive suspected secondary to possible right lower lobe pneumonia, COVID 19 pneumonia Patient was recently discharged from TCU a week ago (2) COVID-19: PLAN: Rapid SARS-CoV-2 antigen positive but flu antigen negative.? Respiratory panel negative.? D-dimer was elevated and bilateral venous duplex ordered.? Patient on therapeutic Lovenox. Patient does not satisfy criteria of sepsis therefore sepsis ruled out.? Patient is immunocompromised therefore cannot mount inflammatory reaction/response, low-grade temperature therefore started on IV Decadron and remdesivir.? ID consult requested (3) Thrombocytopenia: PLAN: Acute on chronic thrombocytopenia probably due to viral COVID-19 infection: (4) Diabetes mellitus, type 2: PLAN: a1c 6.6 exacerbated by underlying illness add SSI as pt will be on steroids PLAN: Plan Chronic stable conditions: * Nonobstructive CAD: l continue home asa, plavix, statin, BB, not on ACEI/ARB likely secondary to underlying renal disease/transplant status. 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 * Liver chemistry and kidney function reviewed.? ALT AST total bilirubin normal limit.? Albumin 2.6, total protein 5.1 low.? BUN/creatinine 21/1.27.? Creatinine clearance 55 ml/min.? Continue patient's immunosuppressive medications including Tacrolimus, Bactrim DS but hold mycophenolate due to COVID-19 infection, thrombocytopenia.? If infection and platelet improved can resume mycophenolate Chronic Pain Syndrome: Patient prior on chronic pain reg imen with ongoing evaluation with Dr. Beckman, on chronic oxycodone regimen. * AOCD/Chronic anemia: Admission Hgb 12.6, last noted Hgb 11/15/22 12.5, basleine prior 13, will continue to trend. * Hx CVA/TIA: Will continue home asa, plavix, statin, HTN regimen as noted. * Hx L renal artery stenosis: s/p renal artery stent placement, will continue home asa, plavix, statin, HTN regimen as noted. * Hypertension w/ recent HTN emergency, resolved: Continue home regimen including doxazosin, nifedipine, Coreg, PRN hydralazine.? Blood pressure normal. * Hyperlipidemia: We will continue patient on statin therapy. * Asthma: Not on chronic regimen, given acute presentation #1 we will maintain on scheduled budesonide, will have PRN albuterol, encourage HOB and IS, continue home zafirlukast regimen. * Gout:? continue patient home allopurinol regimen. * Morbid Obesity: Weight loss and lifestyle changes encouraged. * GERD: continue home PPI. * PAUL: CPAP q HS. DVT Prophylaxis: Heparin. CODE status: DNRCCA, no intubation. Charges/Coding Visit Charges Inpatient E&M: 83993 Subs Hosp L2
[2022-11-28] MEDS: Allopurinol 300 MG Tablet PO (09:46)
[2022-11-28] MEDS: NIFEdipine 90 MG Tablet PO (09:46)
[2022-11-28] MEDS: Smz/Tmp Ds Tablet 0.5 TABLET GT (09:46)
[2022-11-28] MEDS: Doxazosin 4 MG Tablet 8 MG PO (09:46)
[2022-11-28] MEDS: dexAMETHasone 4 MG Tablet 6 MG PO (09:46)
[2022-11-28] MEDS: Pantoprazole Sodium 40 MG Tablet PO (09:47)
[2022-11-28] MEDS: Clopidogrel Bisulfate 75 MG Tablet PO (09:47)
[2022-11-28] MEDS: Carvedilol 25 MG Tablet 50 MG PO ×2 (09:47→16:38)
[2022-11-28] MEDS: Aspirin E.C. 81 MG Tablet PO (09:47)
[2022-11-28] MEDS: Tacrolimus Anhydrous 1 MG Capsule PO ×2 (09:47→22:10)
[2022-11-28] MEDS: Nystatin Powder 15gm Bottle 1 APPLIC TOPICAL ×2 (09:50→22:06)
[2022-11-28] MEDS: Tolterodine Tartrate 2 MG CAP.SA PO (09:50)
[2022-11-28] MEDS: Menthol/Lanolin/Calamine/Znox 113 GM Tube 1 APPLIC TOPICAL ×4 (10:31→22:06)
[2022-11-28] MEDS: Mycophenolate Mofetil 250 MG Capsule 500 MG PO ×2 (10:31→22:10)
[2022-11-28] MEDS: oxyCODONE 5 MG Tablet PO (11:11)
[2022-11-28] MEDS: Insulin Lispro 100 UNIT/ML INSULN.PEN SC ×2 (11:12→16:36)
[2022-11-28 11:40] LABS: Bedside Glucose 225 mg/dL (74-106)
--- NOTE | 2022-11-28 14:28 | PCM.CONS.GEN ---
Assessment & Plan Assessment/Plan (1) History of liver transplant: (2) History of renal transplant: (3) COVID-19: PLAN: Severe covid with liver/kidney transplant 2011 - no h/o rejection or OI. On tacro/cellcept/pred at home with bactrim for proph. Covid booster x3. Now (+) 11/26. On dex and remdesivir, feeling better. Recommend get tested and call PCP if having symptoms. Isolate for 20 days. Cellcept was restarted this AM. Restart pred once decadron is complete. Will follow, thank you HPI Consult Data Date of Consult: 11/28/22 HPI Narrative Reason for Consultation: covid HPI Narrative: TOM GALLAGHER, is a 72 M with h/o kidney/liver transplant in 2011 at [facility], recent admit with [facility], discharged home 11/19. Came back 11/26 with several days falls, body aches, and weakness at home, associated with some cough, non productive. No sick contacts, lives with who is feeling ok. Reports covid booster x3. Admitted here, found to be covid (+), admitted on dex and remdesivir. Cellcept has been held, restarted this Am. Feeling better. No fever, no n/v/d. Full ROS performed and neg except as noted above. [facility] Medical History Anemia Asthma Atherosclerotic heart disease of [place] coronary artery without angina pectoris Chronic kidney disease, stage 3a Chronic nonalcoholic liver disease Chronic pain syndrome Cirrhosis of liver Diabetes mellitus, type 2 End stage renal failure on dialysis Essential (primary) hypertension GERD (gastroesophageal reflux disease) History of CVA (cerebrovascular accident) (06/2021) History of non-ST elevation myocardial infarction (NSTEMI) (03/30/20) Hydronephrosis Immunosuppression Left renal artery stenosis Morbid obesity Obstructive sleep apnea Osteoarthritis Renal calculi Segmental and somatic dysfunction of lumbar region Superficial thrombophlebitis TIA (transient ischemic attack) Home Medications pantoprazole 40 mg tablet,delayed release (Protonix) 40 mg PO DAILY gerd 12/20/19 [History Last Taken 10/01/21] oxybutynin chloride 10 mg tablet,extended release 24 hr 10 mg PO DAILY bladder 03/29/20 [History Last Taken 10/01/21] prednisone 5 mg tablet 5 mg PO DAILY anti rejection 03/29/20 [History Last Taken 10/01/21] aspirin 81 mg tablet,delayed release (Adult Low Dose Aspirin) 81 mg PO DAILY HEART HEALTH 04/15/20 [History Last Taken 10/01/21] tacrolimus 1 mg capsule,extended release 24 hr 1 mg PO BID liver transplant 04/15/20 [History Last Taken 10/01/21] zafirlukast 20 mg tablet (Accolate) 20 mg PO Q12H BREATHING 04/15/20 [History Last Taken 10/01/21] sulfamethoxazole 400 mg-trimethoprim 80 mg tablet 2 tab PO MOWEFR preventative atb 07/17/20 [History Last Taken 10/01/21] oxycodone 5 mg tablet 5 mg PO TID PRN pain 3 days #12 tabs 10/06/21 [Rx Last Taken Unknown] atorvastatin 40 mg tablet 40 mg PO QHS CHOLESTEROL #90 tabs 01/26/22 [Rx Last Taken 11/01/22] doxazosin 8 mg tablet 8 mg PO QAM bp #90 tabs 10/06/22 [Rx Last Taken Unknown] nifedipine 90 mg tablet,extended release 24 hr (Procardia XL) 90 mg PO DAILY HEART #90 tabs 10/10/22 [Rx Last Taken Unknown] allopurinol 300 mg tablet 300 mg PO DAILY GOUT 11/02/22 [History Last Taken Unknown] clopidogrel 75 mg tablet 75 mg PO DAILY BLOOD THINNER 11/02/22 [History Last Taken Unknown] mycophenolate mofetil 250 mg capsule 500 mg PO BID Antirejection 11/02/22 [History Last Taken 11/02/22] nystatin 100,000 unit/gram topical powder (Nystop) 1 applic topical BID Skin 11/02/22 [History Last Taken Unknown] carvedilol 25 mg tablet (Coreg) 50 mg PO BID BP 11/07/22 [History Last Taken Unknown] acetaminophen 500 mg tablet 1,000 mg PO Q6H PRN PRN Pain Score 1-5 #0 tabs 11/16/22 [Rx Last Taken Unknown] Allergy/AdvReac Type Severity Reaction Status Date / Time metformin Allergy Other Verified 11/26/22 20:35 pregabalin [From Lyrica] Allergy Other Verified 11/26/22 20:35 Family History (Updated 11/26/22 @ 22:[address] Patria Damon MD) Grandmother PGM diabetes Paternal GM. Father Heart disease CVA (cerebral vascular accident) Hypertension Mother Parkinson disease Surgical History History of knee replacement History of left heart catheterization (04/03/20) History of stent insertion of renal artery (2014) Kidney transplant recipient (07/13/12) Kidney transplant recipient Liver transplant recipient (07/13/12) Social History household members: spouse Smoking Status: Never smoker second hand exposure: No alcohol intake: never substance use type: does not use caffeine: Yes frequency: 3-4 times per week Physical Exam Const alert, oriented x3 and no apparent distress General Appearance: cooperative HEENT normocephalic and head/scalp atraumatic Eyes PERRL and EOMs intact bilaterally Neck supple and No nodes Resp normal air movement and clear to auscultation bilaterally Cardio regular rate and regular rhythm GI soft to palpation, non-tender and non-distended Extremity General Extremity: edema Skin no rashes or lesions noted Neuro CN's II-XII intact bilaterally Lab / Micro Data Attestation: I reviewed the patient's lab results. Result Diagrams: 11/28/22 06:04 11/28/22 06:04 Labs: Laboratory Results - last 24 hr 11/27/22 06:05: Hemoglobin A1c 6.6 H 11/28/22 06:04: WBC 3.9 L, RBC 4.06 L, Hgb 12.0 L, Hct 40.2, MCV 99.0 H D, MCH 29.6, MCHC 29.9 L D, RDW Std Deviation 48.0 H, RDW Coeff of Leonie 13.0, Plt Count 91 L, MPV 10.7, Immature Gran % (Auto) 0.500, Neut % (Auto) 66.8, Lymph % (Auto) 26.1, [place] % (Auto) 6.6, Eos % (Auto) 0.0, Baso % (Auto) 0.0, Absolute Neuts (auto) 2.6, Absolute Lymphs (auto) 1.03, Nucleated RBC % 0 11/28/22 06:04: Sodium 140, Potassium 4.7, Chloride 113 H, Carbon Dioxide 21.0, Anion Gap 6, BUN 22 H, Creatinine 1.11, Estim Creat Clear Calc 63.03, Est GFR (MDRD) Af Amer 84, Est GFR (MDRD) Non-Af 69, BUN/Creatinine Ratio 19.8, Glucose 209 H, Calcium 8.3 L, Total Bilirubin 0.50, AST 19, ALT 30, Alkaline Phosphatase 64, Total Protein 5.3 L, Albumin 2.9 L, Globulin 2.4, Albumin/Globulin Ratio 1.2 11/28/22 10:57: POC Glucose 225 H Rhythm Strip Rhythm Strip: Sinus Rhythm Rate: 66 Ectopy: None Radiology Impression Venous Doppler Study 11/27/22 00:23 Interpretation Summary No evidence for acute deep venous thrombosis bilateral lower extremities with patent and compressible bilateral great saphenous veins. Partially thrombosed left popliteal artery aneurysm measuring 1.59 x 1.64 cm in diameter Abbreviated COVID-19 protocol utilized Ordering Physician: Patria Damon Referring Physician: Shanelle Luz Performed By: Amberly Perla, YOLI, RVT
--- NOTE | 2022-11-28 15:05 | CASEMGMT ---
RN CM Readmission Note Previous Admission:? 11/03/22-11/07/22-PCU, 11/07/22-11/19/22- TCU Diagnosis:?HTN emergency? DC Disposition: Home with?[facility] SN, PT, OT and ST Current Admission? Current Diagnosis: Adult FTT, falls, ? pna Pt is a 72-year-old male past medical history of CAD, hypertension, stroke and chronic kidney disease. He has had a prior liver and kidney transplant. He is under the care of pain management for chronic pain and takes oxycodone. Several weeks ago he was admitted to the hospital for hypertension. He was transferred to the transitional care unit and got discharged about a week ago. Pt reports he was weak at home and fell 3x on day of admission and unable to get into bed. Pt denied injuries. Pt covid +. Pt reports he did follow up with his PCP since being in TCU. States he thinks he was taking his medications correctly. Currently pt wants to see how he does with therapy to determin dc plan. He feels he is stronger today and that he was having muscle pain that was holding him back but has now gotten better. [facility] SN was able to get out to see him prior to rehospitalization but no therapies. Therapy notes recommending SNF at this time. Updated SW. Plan: TBD, HHC vs SNF.
--- NOTE | 2022-11-28 15:25 | CASEMGMT ---
Social Work RN CM informed that therapy is recommending SNF for pt to get rehab. SW called pt , Serina to discuss. A list of SNF providers including quality and resource use data consistent with the patient?s preferred geographic region, medical needs, and insurance network was shared with pt , verbally via phone, from the [employer] Guide. Pt was informed some SNFs will not accept pt's with covid and it could limit pt options for placement. SW read off list of [facility] SNFs and that was 's preference. shared choices were [facility], then [facility] [place]. SW sent referral to [facility]. PLAN: SNF, pending acceptance and precert VANESSA Hoffman
[2022-11-28 18:40] LABS: Bedside Glucose 275 mg/dL (74-106)
[2022-11-28] MEDS: 0.9% Saline Lock 10 ML Syringe IV (22:06)
[2022-11-28] MEDS: Atorvastatin Calcium 40 MG Tablet PO (22:10)
[2022-11-28] MEDS: Montelukast 10 MG Tablet PO (22:14)
[2022-11-28 22:40] LABS: Bedside Glucose 260 mg/dL (74-106)
[2022-11-29 03:27] VITALS: BP 146/85; PULSE 60; RESP 20; TEMP 36.4; O2SAT 95
[2022-11-29 06:00] VITALS: BMI 42.5
[2022-11-29 06:24] LABS: Absolute Lymphocyte Count 1.06 X10^3/uL (0.83-4.51); Basophil# 0.01 X10^3/uL; Basophil% 0.2 % (0-1); Hematocrit 39.6 % (40-54); Hemoglobin 12.7 g/dL (13.0-16.5); Lymphocyte # 1.06 X10^3/ul (0.83-4.51); Lymphocyte % 16.6 % (19-41); Mean Corp Hgb Conc 32.1 g/dL (32-36); Mean Corpuscular Hgb 29.1 pg (27.0-32.0); Mean Corpuscular Volume 90.6 fL (80-94); Mean Platelet Vol. 10.9 fl (6.2-12.0); Monocyte# 0.31 X10^3/uL; Monocyte% 4.8 % (0-10); NRBC Flagged by Analyzer 0 % (0-5); Neutrophil % 78.1 % (47-70); Platelet Count 116 K/mm3 (150-450); RBC Distribution Width CV 13.1 % (11.6-14.6); RBC Distribution Width SD 43.1 fl (35.1-43.9); Red Blood Count 4.37 M/mm3 (4.6-6.2); White Blood Count 6.4 K/mm3 (4.4-11.0)
[2022-11-29 06:52] LABS: ALB/GLOB Ratio 1.2 RATIO (0.9-2.4); AST(SGOT) 18 U/L (15-37); Alanine Aminotransfer ALT/SGPT 33 U/L (16-61); Alkaline Phosphatase 68 U/L (45-117); Anion Gap 7 (5-15); BUN 29 mg/dL (7-18); BUN/Creat Ratio 22.7 RATIO (10-20); Calcium,Total 8.4 mg/dL (8.5-10.1); Chloride 111 mmol/L (98-107); Creatinine, Serum 1.28 mg/dL (0.70-1.30); EST Glomerular Filtration Rate 59 mL/min (>60); Est Glom Filt Rate - Afr Amer 71 mL/min (>60); Estimated Creatinine Clearance 54.65 ml/min; Globulin 2.4 g/dL (2.2-4.2); Glucose 255 mg/dL (74-106); Potassium 4.9 mmol/L (3.5-5.1); Protein, Total 5.4 g/dL (6.4-8.2); Sodium Level 140 mmol/L (136-145)
[2022-11-29] MEDS: Acetaminophen 325 MG Tablet 650 MG PO (06:59)
[2022-11-29] MEDS: Insulin Lispro 100 UNIT/ML INSULN.PEN SC ×2 (07:01→10:55)
[2022-11-29 07:26] LABS: Bedside Glucose 229 mg/dL (74-106)
--- NOTE | 2022-11-29 07:49 | PN.HOSP_ITS ---
Reason for Visit Reason for Visit: Diagnoses Thrombocytopenia, unspecified (11/26/22) Type 2 diabetes mellitus without complications (11/26/22) Weakness (11/26/22) COVID-19 (11/26/22) Kidney transplant status (11/26/22) Liver transplant status (11/26/22) Subjective Subjective Feeling stronger overall. yet to work with therapy today. Objective Data Objective Data Vital Signs: Vital Signs Temp Pulse Resp BP Pulse Ox O2 Del Method O2 Flow Rate 36.4 C L 60 20 H 146/85 H 95 CPAP 2 11/29/22 03:27 11/29/22 03:27 11/29/22 03:27 11/29/22 03:27 11/29/22 03:27 11/29/22 03:41 11/29/22 03:27 FiO2 94 11/27/22 01:16 Oxygen Flow Rate (L/min) 2 Oxygen Delivery Method CPAP Weight: 134.5 kg Body Mass Index (BMI) 42.5 Intake & Output: Intake and Output for Last 24 Hours 11/27/22 11/28/22 11/29/22 23:59 23:59 23:59 Intake Total 1648.33 / 1898.33 2190 / 2190 Output Total 1350 / 1650 1900 / 1900 350 / 350 Balance 298.33 / 248.33 290 / 290 -350 / -350 Lab / Micro Data Result Diagrams: 11/29/22 06:06 11/29/22 06:06 Labs: Laboratory Results - last 24 hr 11/28/22 10:57: POC Glucose 225 H 11/28/22 16:30: POC Glucose 275 H 11/28/22 21:56: POC Glucose 260 H 11/29/22 06:06: WBC 6.4, RBC 4.37 L, Hgb 12.7 L, Hct 39.6 L, MCV 90.6 D, MCH 29.1, MCHC 32.1 D, RDW Std Deviation 43.1, RDW Coeff of Leonie 13.1, Plt Count 116 L, MPV 10.9, Immature Gran % (Auto) 0.300, Neut % (Auto) 78.1 H, Lymph % (Auto) 16.6 L, [place] % (Auto) 4.8, Eos % (Auto) 0.0, Baso % (Auto) 0.2, Absolute Neuts (auto) 5.0, Absolute Lymphs (auto) 1.06, Nucleated RBC % 0 11/29/22 06:06: Sodium 140, Potassium 4.9, Chloride 111 H, Carbon Dioxide 22.0, Anion Gap 7, BUN 29 H, Creatinine 1.28, Estim Creat Clear Calc 54.65, Est GFR (MDRD) Af Amer 71, Est GFR (MDRD) Non-Af 59 L, BUN/Creatinine Ratio 22.7 H, Glucose 255 H, Calcium 8.4 L, Total Bilirubin 0.30, AST 18, ALT 33, Alkaline Phosphatase 68, Total Protein 5.4 L, Albumin 3.0 L, Globulin 2.4, Albumin/Globulin Ratio 1.2 11/29/22 06:58: POC Glucose 229 H Micro: Microbiology 11/27/22 00:05 Mucosa - Nose Respiratory Panel (PCR) - Final 11/26/22 21:53 Urine, Clean Catch Legionella Antigen - Final 11/26/22 21:53 Urine, Clean Catch Streptococcus pneumoniae Antigen (M - Final 11/26/22 21:15 Nasal Secretion SARS-CoV-2 & FLU Antigen (Rapid) - Final SARS-CoV-2 (COVID 19) Radiography Diagnostic Testing: Radiology Impression Venous Doppler Study 11/27/22 00:23 Interpretation Summary No evidence for acute deep venous thrombosis bilateral lower extremities with patent and compressible bilateral great saphenous veins. Partially thrombosed left popliteal artery aneurysm measuring 1.59 x 1.64 cm in diameter Abbreviated COVID-19 protocol utilized Ordering Physician: Patria Damon Referring Physician: Shanelle Luz Performed By: Amberly Perla RDCS, RVT Rhythm Strip Rhythm Strip: Sinus Rhythm Rate: 66 Ectopy: None Physical Exam Const alert and no apparent distress HEENT head/scalp atraumatic and moist oral mucous membranes Neck no lymphadenopathy Resp normal respiratory effort, no retractions, no use of accessory muscles and clear to auscultation bilaterally Cardio regular rate, regular rhythm, S1 normal heart sound and S2 normal heart sound GI normal to inspection, nondistended, normoactive bowel sounds, soft to palpation, non-tender and non-distended Extremity normal to inspection Assessment & Plan Assessment/Plan (1) Generalized weakness: PLAN: Frequent falls, weakness with adult failure to thrive suspected secondary to possible right lower lobe pneumonia, COVID 19 pneumonia Patient was recently discharged from TCU a week ago PT reeval today (2) COVID-19: PLAN: Rapid SARS-CoV-2 antigen positive but flu antigen negative.? Respiratory panel negative.? D-dimer was elevated and bilateral venous duplex ordered.? Patient on therapeutic Lovenox. Patient does not satisfy criteria of sepsis therefore sepsis ruled out.? Patient is immunocompromised therefore cannot mount inflammatory reaction/response, low-grade temperature therefore started on IV Decadron and remdesivir.? Seen by ID recommends continue dexamethasone, remdesivir. Isolate for 20 days (from the 25th) (3) Thrombocytopenia: PLAN: Acute on chronic thrombocytopenia probably due to viral COVID-19 infection: Improved (4) Diabetes mellitus, type 2: PLAN: a1c 6.6 exacerbated by underlying illness add SSI as pt will be on steroids glucose has been in the 200s-300s. Add glargine while on dexamethasone. (5) History of liver transplant: PLAN: Continue w mycophenolate and tacrolimus. Resume prednisone after dexamethasone (6) History of renal transplant: PLAN: Continue w mycophenolate and tacrolimus. Resume prednisone after dexamethasone PLAN: Plan Chronic stable conditions: * Nonobstructive CAD: l continue home asa, plavix, statin, BB, not on ACEI/ARB likely secondary to underlying renal disease/transplant status. 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 * Liver chemistry and kidney function reviewed.? ALT AST total bilirubin normal limit.? Albumin 2.6, total protein 5.1 low.? BUN/creatinine 21/1.27.? Creatinine clearance 55 ml/min.? Continue patient's immunosuppressive medications including Tacrolimus, Bactrim DS but hold mycophenolate due to COV ID-19 infection, thrombocytopenia.? If infection and platelet improved can resume mycophenolate Chronic Pain Syndrome: Patient prior on chronic pain regimen with ongoing evaluation with Dr. Beckman, on chronic oxycodone regimen. * AOCD/Chronic anemia: Admission Hgb 12.6, last noted Hgb 11/15/22 12.5, basleine prior 13, will continue to trend. * Hx CVA/TIA: Will continue home asa, plavix, statin, HTN regimen as noted. * Hx L renal artery stenosis: s/p renal artery stent placement, will continue home asa, plavix, statin, HTN regimen as noted. * Hypertension w/ recent HTN emergency, resolved: Continue home regimen including doxazosin, nifedipine, Coreg, PRN hydralazine.? Blood pressure normal. * Hyperlipidemia: We will continue patient on statin therapy. * Asthma: Not on chronic regimen, given acute presentation #1 we will maintain on scheduled budesonide, will have PRN albuterol, encourage HOB and IS, continue home zafirlukast regimen. * Gout:? continue patient home allopurinol regimen. * Morbid Obesity: Weight loss and lifestyle changes encouraged. * GERD: continue home PPI. * PAUL: CPAP q HS. DVT Prophylaxis: Heparin. CODE status: DNRCCA, no intubation. Disposition: TBD. PT reeval today. Charges/Coding Visit Charges Inpatient E&M: 11372 Subs Hosp L2
--- NOTE | 2022-11-29 09:17 | CASEMGMT ---
Addendum entered by Jody Pereira 11/29/22 09:22: SW called therapy team and spoke to Paula. Paula informed therapy would make pt a priority today to assist in finalizing the d/c plan in a timely manner. Original Note: Social Work SW in to meet with pt to discuss discharge plans. Pt preference would be to d/c home, however during conversation yesterday with pt , explained that she does not feel pt would be safe to return home with the weakness. SW and pt discussed 's concerns. Pt informed he is feeling stronger and would like a chance to work with therapy this day and see what the progress level is. SW and pt made plan to determine discharge plan based upon therapy recommendation. PLAN: [facility]
[2022-11-29 09:30] VITALS: BP 129/72; PULSE 68; RESP 18; TEMP 36.8; O2SAT 94
[2022-11-29] MEDS: Tacrolimus Anhydrous 1 MG Capsule PO (09:35)
[2022-11-29] MEDS: NIFEdipine 90 MG Tablet PO (09:35)
[2022-11-29] MEDS: Pantoprazole Sodium 40 MG Tablet PO (09:35)
[2022-11-29] MEDS: Mycophenolate Mofetil 250 MG Capsule 500 MG PO (09:35)
[2022-11-29] MEDS: dexAMETHasone 4 MG Tablet 6 MG PO (09:35)
[2022-11-29] MEDS: Doxazosin 4 MG Tablet 8 MG PO (09:35)
[2022-11-29] MEDS: Clopidogrel Bisulfate 75 MG Tablet PO (09:36)
[2022-11-29] MEDS: Tolterodine Tartrate 2 MG CAP.SA PO (09:36)
[2022-11-29] MEDS: Nystatin Powder 15gm Bottle 1 APPLIC TOPICAL (09:36)
[2022-11-29] MEDS: Aspirin E.C. 81 MG Tablet PO (09:36)
[2022-11-29] MEDS: Carvedilol 25 MG Tablet 50 MG PO (09:36)
[2022-11-29] MEDS: Allopurinol 300 MG Tablet PO (09:36)
[2022-11-29] MEDS: Menthol/Lanolin/Calamine/Znox 113 GM Tube 1 APPLIC TOPICAL ×2 (09:36→13:04)
[2022-11-29 09:55] VITALS: O2SAT 95
[2022-11-29 11:16] LABS: Bedside Glucose 307 mg/dL (74-106)
[2022-11-29] MEDS: oxyCODONE 5 MG Tablet PO (13:04)
[2022-11-29 13:31] VITALS: O2SAT 93
--- NOTE | 2022-11-29 14:29 | DCINST_ITS ---
Discharge Instructions Diet Discharge Diet: No restrictions Activity Discharge Activity: Return to Normal Activity Dressing / Incision Call your doctor if you observe: Shortness of breath Follow Up Care Test Results: Test results from this visit will be discussed in further detail at your follow- up appointment, if applicable. Discharge Plan Admission Admit Date/Time: 11/26/22 22:08 Primary Reason for Your Visit: COVID 19 Attending Provider: Robert Ortega Primary Care Provider: Shanelle Luz Consulting Providers: Patria Damon ; Og Gutierrez ; John Hammonds Instructions Additional Instructions / Restrictions: Quarantine at home until 12/15/2022. If you need to leave the house (unless going outside), wear a mask around others. Follow up with your transplant physicians per your routine. Discharge Orders/Prescriptions Prescriptions: New dexamethasone 4 mg Tablet 6 mg PO DAILYCM Qty: 8 0RF glyburide 5 mg tablet 5 mg PO DAILY Qty: 8 0RF Rx Instructions: while on dexamethasone Continued pantoprazole [Protonix] 40 mg tablet,delayed release (DR/EC) 40 mg PO DAILY aspirin [Adult Low Dose Aspirin] 81 mg tablet,delayed release (DR/EC) 81 mg PO DAILY zafirlukast [Accolate] 20 mg tablet 20 mg PO Q12H Rx Instructions: administer 1 hour before or 2 hours after food or meals tacrolimus 1 mg capsule,extended release 24hr 1 mg PO BID Label Comments: REJECTION MED oxybutynin chloride 10 MG tablet extended release 24hr 10 mg PO DAILY sulfamethoxazole-trimethoprim 400-80 mg tablet 2 tab PO MOWEFR Rx Instructions: take one tablet po every monday, monday, monday oxycodone 5 mg Tablet 5 mg PO TID PRN (Reason: pain) 3 Days Qty: 12 0RF mycophenolate mofetil 250 mg capsule 500 mg PO BID Label Comments: take 2 capsules by mouth twice a day clopidogrel 75 mg tablet 75 mg PO DAILY allopurinol 300 mg tablet 300 mg PO DAILY nystatin [Nystop] 100,000 unit/gram Powder 1 applic TOPICAL BID carvedilol [Coreg] 25 mg tablet 50 mg PO BID Rx Instructions: must administer with a meal/food acetaminophen 500 mg Tablet 1,000 mg PO Q6H PRN PRN (Reason: Pain Score 1-5) Qty: 0 0RF atorvastatin 40 mg tablet 40 mg PO QHS Qty: 90 3RF doxazosin 8 mg tablet 8 mg PO QAM Qty: 90 3RF nifedipine [Procardia XL] 90 mg tablet extended release 24hr 90 mg PO DAILY Qty: 90 3RF Held prednisone 5 MG tablet 5 mg PO DAILY Hold Instructions: Resume on 12/08/22. Referrals / Follow Up: Shanelle Luz DO [Primary Care Provider] - Within 2 Weeks Disposition Disposition (needs filled in before D/C Order can be placed): Home Health Service
--- NOTE | 2022-11-29 14:50 | DS.PCM_ITS ---
Providers Date of Admission: 11/26/22 Primary Care Physician: Dr. Shanelle Luz, Consultations 11/27/22 09:09 Consult: Infectious Disease Routine Consulting Provider: Og Gutierrez Reason for Consult: COVID 19 pneumonia EMERGENT Consult: No MD Notified: Yes Date Notified: 11/27/22 Time Notified: 09:09 Method of Notification: Text Reason For Visit: ADULT FTT, FALLS, ? PNA Diagnosis Discharge Diagnosis (1) Generalized weakness: Status: Acute Code(s): R53.1 - Weakness Plan: Frequent falls, weakness with adult failure to thrive suspected secondary to possible right lower lobe pneumonia, COVID 19 pneumonia Patient was recently discharged from TCU a week ago PT reeval today (2) COVID-19: Status: Acute Code(s): U07.1 - COVID-19 Plan: Rapid SARS-CoV-2 antigen positive but flu antigen negative.? Respiratory panel negative.? D-dimer was elevated and bilateral venous duplex ordered.? Patient on therapeutic Lovenox. Patient does not satisfy criteria of sepsis therefore sepsis ruled out.? Patient is immunocompromised therefore cannot mount inflammatory reaction/response, low-grade temperature therefore started on IV Decadron and remdesivir.? Seen by ID recommends continue dexamethasone, remdesivir. Isolate for 20 days (from the 25th) (3) Thrombocytopenia: Status: Acute Code(s): D69.6 - Thrombocytopenia, unspecified Plan: Acute on chronic thrombocytopenia probably due to viral COVID-19 infection: Improved (4) Diabetes mellitus, type 2: Status: Acute Code(s): E11.9 - Type 2 diabetes mellitus without complications Plan: a1c 6.6 exacerbated by underlying illness add SSI as pt will be on steroids glucose has been in the 200s-300s. Add glyburide while on dexamethasone. (5) History of liver transplant: Status: Acute Code(s): Z94.4 - Liver transplant status Plan: Continue w mycophenolate and tacrolimus. Resume prednisone after dexamethasone (6) History of renal transplant: Status: Acute Code(s): Z94.0 - Kidney transplant status Plan: Continue w mycophenolate and tacrolimus. Resume prednisone after dexamethasone Plan Chronic stable conditions: * Nonobstructive CAD: l continue home asa, plavix, statin, BB, not on ACEI/ARB likely secondary to underlying renal disease/transplant status. 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 * Liver chemistry and kidney function reviewed.? ALT AST total bilirubin normal limit.? Albumin 2.6, total protein 5.1 low.? BUN/creatinine 21/1.27.? Creatinine clearance 55 ml/min.? Continue patient's immunosuppressive medications including Tacrolimus, Bactrim DS but hold mycophenolate due to COVID-19 infection, thrombocytopenia.? If infection and platelet improved can resume mycophenolate Chronic Pain Syndrome: Patient prior on chronic pain regimen with ongoing evaluation with Dr. Beckman, on chronic oxycodone regimen. * AOCD/Chronic anemia: Admission Hgb 12.6, last noted Hgb 11/15/22 12.5, basleine prior 13, will continue to trend. * Hx CVA/TIA: Will continue home asa, plavix, statin, HTN regimen as noted. * Hx L renal artery stenosis: s/p renal artery stent placement, will continue home asa, plavix, statin, HTN regimen as noted. * Hypertension w/ recent HTN emergency, resolved: Continue home regimen including doxazosin, nifedipine, Coreg, PRN hydralazine.? Blood pressure normal. * Hyperlipidemia: We will continue patient on statin therapy. * Asthma: Not on chronic regimen, given acute presentation #1 we will maintain on scheduled budesonide, will have PRN albuterol, encourage HOB and IS, continue home zafirlukast regimen. * Gout:? continue patient home allopurinol regimen. * Morbid Obesity: Weight loss and lifestyle changes encouraged. * GERD: continue home PPI. * PAUL: CPAP q HS. DVT Prophylaxis: Heparin. CODE status: DNRCCA, no intubation. Disposition: Home with home health Medications at Discharge Home Medications pantoprazole 40 mg tablet,delayed release (Protonix) 40 mg PO DAILY gerd 12/20/19 oxybutynin chloride 10 mg tablet,extended release 24 hr 10 mg PO DAILY bladder 03/29/20 prednisone 5 mg tablet 5 mg PO DAILY anti rejection 03/29/20 aspirin 81 mg tablet,delayed release (Adult Low Dose Aspirin) 81 mg PO DAILY HEART HEALTH 04/15/20 tacrolimus 1 mg capsule,extended release 24 hr 1 mg PO BID liver transplant 04/15/20 zafirlukast 20 mg tablet (Accolate) 20 mg PO Q12H BREATHING 04/15/20 sulfamethoxazole 400 mg-trimethoprim 80 mg tablet 2 tab PO MOWEFR preventative atb 07/17/20 oxycodone 5 mg tablet 5 mg PO TID PRN pain 3 days #12 tabs 10/06/21 atorvastatin 40 mg tablet 40 mg PO QHS CHOLESTEROL #90 tabs 01/26/22 doxazosin 8 mg tablet 8 mg PO QAM bp #90 tabs 10/06/22 nifedipine 90 mg tablet,extended release 24 hr (Procardia XL) 90 mg PO DAILY HEART #90 tabs 10/10/22 allopurinol 300 mg tablet 300 mg PO DAILY GOUT 11/02/22 clopidogrel 75 mg tablet 75 mg PO DAILY BLOOD THINNER 11/02/22 mycophenolate mofetil 250 mg capsule 500 mg PO BID Antirejection 11/02/22 nystatin 100,000 unit/gram topical powder (Nystop) 1 applic topical BID Skin 11/02/22 carvedilol 25 mg tablet (Coreg) 50 mg PO BID BP 11/07/22 acetaminophen 500 mg tablet 1,000 mg PO Q6H PRN PRN Pain Score 1-5 #0 tabs 11/16/22 dexamethasone 4 mg tablet 6 mg PO DAILYCM #8 tabs 11/29/22 glyburide 5 mg tablet 5 mg PO DAILY #8 tabs 11/29/22 Hospital Course Operations None Procedures None Summary of Care Provided Minutes Spent on Discharge: 32 Weight / BMI Weight Weight: 134.5 kg Body Mass Index (BMI) 42.5 ABG / Lab / Microbiology Data Result Diagrams: 11/29/22 06:06 11/29/22 06:06 Laboratory: Laboratory Results - last 24 hr 11/28/22 16:30: POC Glucose 275 H 11/28/22 21:56: POC Glucose 260 H 11/29/22 06:06: WBC 6.4, RBC 4.37 L, Hgb 12.7 L, Hct 39.6 L, MCV 90.6 D, MCH 29.1, MCHC 32.1 D, RDW Std Deviation 43.1, RDW Coeff of Leonie 13.1, Plt Count 116 L, MPV 10.9, Immature Gran % (Auto) 0.300, Neut % (Auto) 78.1 H, Lymph % (Auto) 16.6 L, [place] % (Auto) 4.8, Eos % (Auto) 0.0, Baso % (Auto) 0.2, Absolute Neuts (auto) 5.0, Absolute Lymphs (auto) 1.06, Nucleated RBC % 0 11/29/22 06:06: Sodium 140, Potassium 4.9, Chloride 111 H, Carbon Dioxide 22.0, Anion Gap 7, BUN 29 H, Creatinine 1.28, Estim Creat Clear Calc 54.65, Est GFR (MDRD) Af Amer 71, Est GFR (MDRD) Non-Af 59 L, BUN/Creatinine Ratio 22.7 H, Glucose 255 H, Calcium 8.4 L, Total Bilirubin 0.30, AST 18, ALT 33, Alkaline Phosphatase 68, Total Protein 5.4 L, Albumin 3.0 L, Globulin 2.4, Albumin/Gl obulin Ratio 1.2 11/29/22 06:58: POC Glucose 229 H 11/29/22 10:54: POC Glucose 307 H Microbiology: Microbiology 11/26/22 22:00 Blood Culture (Wb) - Right Forearm Blood Culture - Preliminary No growth in 48 hours. 11/26/22 21:15 Blood Culture (Wb) - Right Forearm Blood Culture - Preliminary No growth in 48 hours. 11/27/22 00:05 Mucosa - Nose Respiratory Panel (PCR) - Final 11/26/22 21:53 Urine, Clean Catch Legionella Antigen - Final 11/26/22 21:53 Urine, Clean Catch Streptococcus pneumoniae Antigen (M - Final 11/26/22 21:15 Nasal Secretion SARS-CoV-2 & FLU Antigen (Rapid) - Final SARS-CoV-2 (COVID 19) D/C Instructions Discharge Diet: No restrictions Call your doctor if you observe: Shortness of breath Meaningful Use Info Meaningful Use Diagnoses (Choose all that apply): None applicable Discharge Plan Admission Admit Date/Time: 11/26/22 22:08 Primary Reason for Your Visit: COVID 19 Attending Provider: Robert Ortega Primary Care Provider: Shanelle Luz Consulting Providers: Patria Damon ; Og Gutierrez ; John Hammonds Instructions Additional Instructions / Restrictions: Quarantine at home until 12/15/2022. If you need to leave the house (unless going outside), wear a mask around others. Follow up with your transplant physicians per your routine. Discharge Orders/Prescriptions Prescriptions: New dexamethasone 4 mg Tablet 6 mg PO DAILYCM Qty: 8 0RF glyburide 5 mg tablet 5 mg PO DAILY Qty: 8 0RF Rx Instructions: while on dexamethasone Continued pantoprazole [Protonix] 40 mg tablet,delayed release (DR/EC) 40 mg PO DAILY aspirin [Adult Low Dose Aspirin] 81 mg tablet,delayed release (DR/EC) 81 mg PO DAILY zafirlukast [Accolate] 20 mg tablet 20 mg PO Q12H Rx Instructions: administer 1 hour before or 2 hours after food or meals tacrolimus 1 mg capsule,extended release 24hr 1 mg PO BID Label Comments: REJECTION MED oxybutynin chloride 10 MG tablet extended release 24hr 10 mg PO DAILY sulfamethoxazole-trimethoprim 400-80 mg tablet 2 tab PO MOWEFR Rx Instructions: take one tablet po every monday, monday, monday oxycodone 5 mg Tablet 5 mg PO TID PRN (Reason: pain) 3 Days Qty: 12 0RF mycophenolate mofetil 250 mg capsule 500 mg PO BID Label Comments: take 2 capsules by mouth twice a day clopidogrel 75 mg tablet 75 mg PO DAILY allopurinol 300 mg tablet 300 mg PO DAILY nystatin [Nystop] 100,000 unit/gram Powder 1 applic TOPICAL BID carvedilol [Coreg] 25 mg tablet 50 mg PO BID Rx Instructions: must administer with a meal/food acetaminophen 500 mg Tablet 1,000 mg PO Q6H PRN PRN (Reason: Pain Score 1-5) Qty: 0 0RF atorvastatin 40 mg tablet 40 mg PO QHS Qty: 90 3RF doxazosin 8 mg tablet 8 mg PO QAM Qty: 90 3RF nifedipine [Procardia XL] 90 mg tablet extended release 24hr 90 mg PO DAILY Qty: 90 3RF Held prednisone 5 MG tablet 5 mg PO DAILY Hold Instructions: Resume on 12/08/22. Referrals / Follow Up: Shanelle Luz DO [Primary Care Provider] - Within 2 Weeks Disposition Disposition (needs filled in before D/C Order can be placed): Home Health Service Charges/Coding Visit Charges Inpatient E&M: 70218 Disch Hosp >30min
--- NOTE | 2022-11-29 15:16 | CASEMGMT ---
TC to [facility], spoke with Kay, she is aware that pt will dc today.
[2022-11-29 15:21] VITALS: BP 137/79; PULSE 75; RESP 18; TEMP 36.6; O2SAT 93
[2022-11-29 15:32] VITALS: O2SAT 89; O2SAT 93
== END 2022-11-29 16:22 | disposition home health service (06) | DRG 177 ==
LOC: ED 21:40 → MS3 11-27 01:05
PROVIDERS: Internal Medicine; Admitting Provider Family Medicine; Emergency Provider Emergency Medicine; PCP Internal Medicine
DX: U07.1 COVID-19 (principal); J12.82 Pneumonia due to coronavirus disease 2019; N18.6 End stage renal disease; D84.9 Immunodeficiency, unspecified; I12.0 Hypertensive chronic kidney disease with stage 5 chronic kidney disease or end stage renal disease; Z68.41 Body mass index [BMI] 40.0-44.9, adult; Z94.4 Liver transplant status; Z94.0 Kidney transplant status; D69.6 Thrombocytopenia, unspecified; D63.1 Anemia in chronic kidney disease; K74.60 Unspecified cirrhosis of liver; E66.01 Morbid (severe) obesity due to excess calories; I70.1 Atherosclerosis of renal artery; N18.31 Chronic kidney disease, stage 3a; E11.65 Type 2 diabetes mellitus with hyperglycemia; G47.33 Obstructive sleep apnea (adult) (pediatric); K21.9 Gastro-esophageal reflux disease without esophagitis; I25.10 Atherosclerotic heart disease of native coronary artery without angina pectoris; M10.9 Gout, unspecified; E78.5 Hyperlipidemia, unspecified; R62.7 Adult failure to thrive; Z79.02 Long term (current) use of antithrombotics/antiplatelets; M62.81 Muscle weakness (generalized); N13.9 Obstructive and reflux uropathy, unspecified; Z79.82 Long term (current) use of aspirin; Z79.52 Long term (current) use of systemic steroids; G89.4 Chronic pain syndrome; R09.02 Hypoxemia; Z51.5 Encounter for palliative care; Z66 Do not resuscitate; Z86.73 Personal history of transient ischemic attack (TIA), and cerebral infarction without residual deficits
CPT/HCPCS: 36415; 70450; 71045; 71046; 80053; 81001; 82728; 82962; 83036; 83605; 83615; 83880; 84145; 84484; 85025; 85379; 85610; 85730; 86140; 87040; 87428; 87449; 87633; 87635; 92610; 93005; 93970; 94640; 94668; 97163; 97166; 97530; 99252; 99285; J7030; J7050; A4216; G0463; J0248; U0003; U0005

== ENCOUNTER → 2022-12-01 | Outpatient (CLI) | payer MEDICARE, OTHER, SELFPAY ==
[2020-07-29 07:35] VITALS: BMI 46.7
[2022-12-01 18:34] LABS: Anion Gap 6 (5-15); BUN 43 mg/dL (7-18); BUN/Creat Ratio 30.3 RATIO (10-20); Calcium,Total 9.2 mg/dL (8.5-10.1); Chloride 106 mmol/L (98-107); Creatinine, Serum 1.42 mg/dL (0.70-1.30); EST Glomerular Filtration Rate 52 mL/min (>60); Est Glom Filt Rate - Afr Amer 63 mL/min (>60); Glucose 287 mg/dL (74-106); Potassium 4.2 mmol/L (3.5-5.1); Sodium Level 136 mmol/L (136-145)
== END | disposition home or self-care (01) ==
LOC: MTLAB 15:19
PROVIDERS: PCP Internal Medicine; Referring Provider Internal Medicine Nephrology; Visit Provider Internal Medicine Nephrology
DX: N17.9 Acute kidney failure, unspecified (principal); I10 Essential (primary) hypertension
CPT/HCPCS: 36415; 80048

== ENCOUNTER 2022-12-03 05:57 | Inpatient (IN) | payer MEDICARE, OTHER, SELFPAY ==
[2020-07-29 07:35] VITALS: BMI 46.7
[2022-12-03] VITALS (16 sets, daily range): BP systolic 126–148; BP diastolic 80–84; PULSE 65–83; RESP 12–38; TEMP 36.7–38.4; O2SAT 90–96; BMI 44.1; BMI 43.1
--- NOTE | 2022-12-03 06:12 | EKG12_ITS ---
Test Reason : sob Blood Pressure : / mmHG Vent. Rate : 082 BPM Atrial Rate : 082 BPM P-R Int : 168 ms QRS Dur : 160 ms QT Int : 402 ms P-R-T Axes : 013 -62 -21 degrees QTc Int : 469 ms Sinus rhythm with Right bundle branch block Left anterior fascicular block Bifascicular block Abnormal ECG Confirmed by TIARA RUSSELL, ROSANGELA ([id number]), desk editor MARKY VARGAS ([id number]) on 12/05/2022 11:13:33 AM Referred By: Confirmed By:CECILIA MENJIVAR MD
--- NOTE | 2022-12-03 06:12 | CT_ITS ---
STUDY: CTA CHEST REASON FOR EXAM: Male, 72 years old. Hypoxia RADIATION DOSAGE (If Supplied By Facility): CTDIvol = ( 36.54 ) mGy, DLP = ( 697.27 ) mGycm TECHNIQUE: The examination was performed with the intravenous administration of IV 100mL Isovue-370. Post-processing of the angiographic images was performed, with multiplanar reformation and 3D reconstruction. Individualized dose optimization techniques were used for this CT. COMPARISON: None. FINDINGS: Evaluation is limited by patient motion and by streak artifact due to the patient''s arms being at his sides. There is patchy airspace opacity in the mid to lower lung pierre bilaterally. There are no pleural effusions. There is no pneumothorax. There is no pulmonary embolus. There is no thoracic aortic aneurysm. The contrast bolus is insufficient to exclude thoracic aortic dissection. There are atherosclerotic calcifications noted in the aorta and its branches. The heart and pericardium are within normal limits. There are coronary artery calcifications noted. There is no thoracic lymphadenopathy. Images through the upper abdomen demonstrate fatty infiltration of the liver. There are no destructive osseous lesions. CT/CTA Chest W/WO Contrast IMPRESSION: Limited study. No pulmonary embolus. No thoracic aortic aneurysm. The contrast bolus is insufficient to exclude thoracic aortic dissection. Patchy airspace opacities in the mid to lower lung pierre bilaterally, consistent with an infectious etiology. COVID Pneumonia should be excluded. Atherosclerosis and coronary artery disease. Fatty liver. Electronically Signed: Michael Machado MD at 8:53 EDT ,
[2022-12-03 06:28] LABS: Absolute Lymphocyte Count 1.32 X10^3/uL (0.83-4.51); Absolute Neutrophil Count 13.8 X10^3/uL (2.0-7.7); Basophil# 0.02 X10^3/uL; Basophil% 0.1 % (0-1); Hematocrit 38.5 % (40-54); Hemoglobin 13.1 g/dL (13.0-16.5); Lymphocyte # 1.32 X10^3/ul (0.83-4.51); Lymphocyte % 8.1 % (19-41); Mean Corpuscular Volume 85.4 fL (80-94); Mean Platelet Vol. 10.8 fl (6.2-12.0); Monocyte% 5.5 % (0-10); NRBC Flagged by Analyzer 0.3 % (0-5); Neutrophil # 13.82 X10^3/uL (2.7-7.7); Platelet Count 150 K/mm3 (150-450); RBC Distribution Width SD 39.6 fl (35.1-43.9); Red Blood Count 4.51 M/mm3 (4.6-6.2); White Blood Count 16.3 K/mm3 (4.4-11.0)
[2022-12-03 06:44] LABS: Prothrombin Time (Protime)PT. 13.4 SECONDS (11.7-14.9)
[2022-12-03] MEDS: Ipratropium/Albuterol Sulfate 3 ML AMPUL.NEB INHALATION (06:44)
[2022-12-03 06:45] LABS: Partial Thromboplast Time 25.8 Seconds (24.1-36.2)
[2022-12-03 06:50] LABS: Anion Gap 5 (5-15); BUN 37 mg/dL (7-18); BUN/Creat Ratio 27.8 RATIO (10-20); Calcium,Total 8.2 mg/dL (8.5-10.1); Chloride 107 mmol/L (98-107); Creatinine, Serum 1.33 mg/dL (0.70-1.30); EST Glomerular Filtration Rate 56 mL/min (>60); Est Glom Filt Rate - Afr Amer 68 mL/min (>60); Glucose 172 mg/dL (74-106); Magnesium 1.5 mg/dL (1.6-2.6); Potassium 3.9 mmol/L (3.5-5.1); Sodium Level 138 mmol/L (136-145); Troponin-I HS 31 pg/mL (3.0-78.0)
[2022-12-03 07:29] LABS: BNP,B-Type NATRIURETIC PEPTIDE 168.2 pg/mL (0-100)
--- NOTE | 2022-12-03 07:47 | EDS_ITS ---
HPI History of Present Illness Chief Complaint: Shortness of Breath Narrative Narrative: Patient is a 72-year-old male with past medical history of previous liver and kidney transplant as well as hyperlipidemia hypertension type 2 diabetes and recent admission to the hospital for COVID-19 and failure to thrive/generalized weakness. Patient was recently discharged home and then states he awoke this morning with increased shortness of breath. Patient reports he does not have a history of COPD or emphysema and does not need supplemental oxygen. Based on his recent diagnosis of COVID and the fact that he now has increased shortness of breath after returning home he presents for reevaluation [facility] Medical History Anemia Asthma Atherosclerotic heart disease of [place] coronary artery without angina pectoris Chronic kidney disease, stage 3a Chronic nonalcoholic liver disease Chronic pain syndrome Cirrhosis of liver Diabetes mellitus, type 2 End stage renal failure on dialysis Essential (primary) hypertension GERD (gastroesophageal reflux disease) History of CVA (cerebrovascular accident) (06/2021) History of non-ST elevation myocardial infarction (NSTEMI) (03/30/20) Hydronephrosis Immunosuppression Left renal artery stenosis Morbid obesity Obstructive sleep apnea Osteoarthritis Renal calculi Segmental and somatic dysfunction of lumbar region Superficial thrombophlebitis TIA (transient ischemic attack) Home Medications pantoprazole 40 mg tablet,delayed release (Protonix) 40 mg PO DAILY gerd 12/20/19 [History Last Taken 10/01/21] oxybutynin chloride 10 mg tablet,extended release 24 hr 10 mg PO DAILY bladder 03/29/20 [History Last Taken 10/01/21] aspirin 81 mg tablet,delayed release (Adult Low Dose Aspirin) 81 mg PO DAILY HEART HEALTH 04/15/20 [History Last Taken 10/01/21] tacrolimus 1 mg capsule,extended release 24 hr 1 mg PO BID liver transplant 04/15/20 [History Last Taken 10/01/21] zafirlukast 20 mg tablet (Accolate) 20 mg PO Q12H BREATHING 04/15/20 [History Last Taken 10/01/21] sulfamethoxazole 400 mg-trimethoprim 80 mg tablet 2 tab PO MOWEFR preventative atb 07/17/20 [History Last Taken 10/01/21] oxycodone 5 mg tablet 5 mg PO TID PRN pain 3 days #12 tabs 10/06/21 [Rx Last Taken Unknown] atorvastatin 40 mg tablet 40 mg PO QHS CHOLESTEROL #90 tabs 01/26/22 [Rx Last Taken 11/01/22] doxazosin 8 mg tablet 8 mg PO QAM bp #90 tabs 10/06/22 [Rx Last Taken Unknown] nifedipine 90 mg tablet,extended release 24 hr (Procardia XL) 90 mg PO DAILY HEART #90 tabs 10/10/22 [Rx Last Taken Unknown] allopurinol 300 mg tablet 300 mg PO DAILY GOUT 11/02/22 [History Last Taken Unknown] clopidogrel 75 mg tablet 75 mg PO DAILY BLOOD THINNER 11/02/22 [History Last Taken Unknown] mycophenolate mofetil 250 mg capsule 500 mg PO BID Antirejection 11/02/22 [History Last Taken 11/02/22] nystatin 100,000 unit/gram topical powder (Nystop) 1 applic topical BID Skin 11/02/22 [History Last Taken Unknown] carvedilol 25 mg tablet (Coreg) 50 mg PO BID BP 11/07/22 [History Last Taken Unknown] acetaminophen 500 mg tablet 1,000 mg PO Q6H PRN PRN Pain Score 1-5 #0 tabs 11/16/22 [Rx Last Taken Unknown] dexamethasone 4 mg tablet 6 mg PO DAILYCM #8 tabs 11/29/22 [Rx Last Taken Unknown] glyburide 5 mg tablet 5 mg PO DAILY #8 tabs 11/29/22 [Rx Last Taken Unknown] Allergy/AdvReac Type Severity Reaction Status Date / Time metformin Allergy Other Verified 12/03/22 06:10 pregabalin [From Lyrica] Allergy Other Verified 12/03/22 06:10 Family History (Updated 11/26/22 @ 22:[address] Patria Damon MD) Grandmother PGM diabetes Paternal GM. Father Heart disease CVA (cerebral vascular accident) Hypertension Mother Parkinson disease Surgical History History of knee replacement History of left heart catheterization (04/03/20) History of stent insertion of renal artery (2014) Kidney transplant recipient (07/13/12) Kidney transplant recipient Liver transplant recipient (07/13/12) Social History household members: spouse Smoking Status: Never smoker second hand exposure: No alcohol intake: never substance use type: does not use caffeine: Yes frequency: 3-4 times per week ROS ROS ED Constitutional Constitutional ED: Denies chills or fever(s) ENT ENT ED: Denies rhinorrhea or sore throat Cardiovascular Cardiovascular: Denies chest pain Respiratory/Chest Respiratory/Chest: Reports dyspnea; Denies cough Gastrointestinal Gastrointestinal: Denies abdominal pain, diarrhea, nausea or vomiting Genitourinary Genitourinary ED: Denies dysuria Musculoskeletal Musculoskeletal: Denies myalgias Integumentary Denies rash Neurologic Neurologic: Denies headache(s) Hematologic/Lymphatic Hematologic/Lymphatic: Reports easy bleeding and easy bruising EXAM Physical Exam Const Vital Signs: 12/03/22 05:57 12/03/22 06:09 12/03/22 06:46 Temperature 98.0 F Temperature Source Temporal Pulse Rate 65 Respiratory Rate 22 H Respiratory Effort Labored Blood Pressure 126/83 H Blood Pressure Mean 97 Pulse Ox 91 90 Oxygen Delivery Method Nasal Cannula Nasal Cannula Oxygen Flow Rate (L/min) 5 5 Fraction of Inspired Oxygen (FIO2) 12/03/22 06:46 12/03/22 06:46 12/03/22 07:04 Temperature Temperature Source Pulse Rate 81 76 Respiratory Rate 37 H 38 H 29 H Respiratory Effort Short of Breath Labored Accessory Muscle Use Blood Pressure Blood Pressure Mean Pulse Ox 90 95 Oxygen Delivery Method Nasal Cannula Oxygen Flow Rate (L/min) 5 Fraction of Inspired Oxygen (FIO2) 50 Positive well nourished, well developed and obese General Appearance ED: well developed Nutritional Appearance: obese HEENT HEENT Narrative: No tongue or lip swelling no oral lesions no airway edema or compromise Eyes PERRL and EOMs intact bilaterally General Eye ED: Negative for scleral icterus Neck supple and no JVD Neck Narrative: No nuchal rigidity or meningeal signs noted Chest Wall palpation of chest normal Chest Narrative: No bony deformity or crepitance Resp Resp Narrative: Patient is in mild respiratory distress with tachypnea and breath sounds are severely diminished throughout Cardio regular rate and regular rhythm Rate: other Other Details: Radial pulses are plus 2 out of 4 bilaterally are equal and symmetric GI normal to inspection, nondistended, normoactive bowel sounds, non-tender, non- distended and no masses GI Narrative: Patient has diffuse bruising across his abdomen consistent with history of heparin injections while in the hospital but there is no pain with palpation no voluntary guarding or rigidity no pulsatile mass or fluid wave Auscultation: normoactive bowel sounds Palpation: soft Extremity Extremity Narrative: Trace pitting edema to the bilateral lower extremities that is equal and symmetric with negative Homans' sign bilaterally Neuro oriented x3 and CN's II-XII intact bilaterally Sensorium / Orientation: alert Psych Psych Narrative: Patient has a flat affect Skin Skin Narrative: Patient has ecchymotic lesions across his abdomen and arms consistent with history of heparin use MDM MDM MDM Narrative Medical decision making narrative: Patient presented to the ER in mild respiratory distress and had a room air pulse ox in the mid 80s on room air. He was placed on 5 L nasal cannula and his pulse ox improved to approximately 90%. Breath sounds were severely diminished and hard to auscultate and there was questionable wheeze so he was given an DuoNeb treatment. Following this patient's work of breathing actually increased where he now developed accessory muscle use and slight retractions and his pulse ox now dropped into the upper 80s. With the decrease to his pulse ox and increased work of breathing he was transitioned to BiPAP. Repeat blood work was obtained to check for possible anemia or severe electrolyte derangement or cardiac damage as the cause of his worsening shortness of breath. The patient's white count is elevated at 16.3 but he was given Decadron while in the ER and this very well could be related to the steroid component. As he is afebrile I do not feel need for blood cultures at this time. Also as he recently tested positive for COVID I do not feel there is need to repeat a viral swab. Even though he was given heparin while in the ER with his increased work of breathing and hypoxia there is concern he developed a pulmonary embolus and therefore CTA will be obtained. The patient's troponin is 31 and chart review reveals that his previous value was 34 from the last hospitalization and as this is actually down trended I do not believe there is an acute cardiac event occurring. At this time the patient is requiring BiPAP to help control his work of breathing and keep his pulse ox greater than 90%. As he has now requires noninvasive ventilation with oxygen to keep his sats greater than 90% and does not normally need this he will need to be kept in the hospital for further care. At this time the CTA is still pending and therefore he will be signed out to the oncoming physician Dr. Patton. The plan will be for admission secondary to hypoxia. Need for antibiotics versus heparin will be based on results of the CTA. History & Record Review Discussion w/independent historian: Patient and Family Additional record(s) reviewed:: Prior inpatient record Lab Data Attestation: I reviewed the patient's lab results. Labs: Laboratory Results - last 24 hr 12/03/22 12/03/22 12/03/22 06:10 06:18 06:18 WBC 16.3 H RBC 4.51 L Hgb 13.1 Hct 38.5 L MCV 85.4 D MCH 29.0 MCHC 34.0 D RDW Std Deviation 39.6 RDW Coeff of Leonie 13.0 Plt Count 150 MPV 10.8 Immature Gran % (Auto) 1.300 H Neut % (Auto) 85.0 H Lymph % (Auto) 8.1 L [place] % (Auto) 5.5 Eos % (Auto) 0.0 Baso % (Auto) 0.1 Absolute Neuts (auto) 13.8 H Absolute Lymphs (auto) 1.32 Nucleated RBC % 0.3 PT 13.4 INR 1.0 APTT 25.8 Sodium 138 Potassium 3.9 Chloride 107 Carbon Dioxide 26.0 Anion Gap 5 BUN 37 H Creatinine 1.33 H Estim Creat Clear Calc 52.60 Est GFR (MDRD) Af Amer 68 Est GFR (MDRD) Non-Af 56 L BUN/Creatinine Ratio 27.8 H Glucose 172 H Calcium 8.2 L Magnesium 1.5 L Troponin I High Sens 31 B-Natriuretic Peptide 12/03/22 06:18 WBC RBC Hgb Hct MCV MCH MCHC RDW Std Deviation RDW Coeff of Leonie Plt Count MPV Immature Gran % (Auto) Neut % (Auto) Lymph % (Auto) [place] % (Auto) Eos % (Auto) Baso % (Auto) Absolute Neuts (auto) Absolute Lymphs (auto) Nucleated RBC % PT INR APTT Sodium Potassium Chloride Carbon Dioxide Anion Gap BUN Creatinine Estim Creat Clear Calc Est GFR (MDRD) Af Amer Est GFR (MDRD) Non-Af BUN/Creatinine Ratio Glucose Calcium Magnesium Troponin I High Sens B-Natriuretic Peptide 168.2 H Management Discussion w/another healthcare provider: Hospitalist Discharge Plan Dx/Rx/DC Orders Clinical Impression: Acute respiratory failure with hypoxia, COVID-19, Diabetes mellitus, type 2 Disposition Disposition: Acute Care Hospital [facility]
--- NOTE | 2022-12-03 11:22 | HP.PCM.HOS_ITS ---
HPI - General General Date of Admission: 12/03/22 Date of Service: 12/03/22 Chief Complaint: short of breath. HPI Narrative TOM GALLAGHER, is a 72 M who presents after slipping between his bed and the wall. Pt was reportedly hypoxic and placed on oxygen but still had work of breathing. Eventually placed on BiPAP where he has remained stable. Patient tells me that he came in because he slipped bw his bed and the wall and could not get up. He was discharged on the w COVID 19 and was doing well until today. [facility] Medical History Anemia Asthma Atherosclerotic heart disease of [place] coronary artery without angina pectoris Chronic kidney disease, stage 3a Chronic nonalcoholic liver disease Chronic pain syndrome Cirrhosis of liver Diabetes mellitus, type 2 End stage renal failure on dialysis Essential (primary) hypertension GERD (gastroesophageal reflux disease) History of CVA (cerebrovascular accident) (06/2021) History of non-ST elevation myocardial infarction (NSTEMI) (03/30/20) Hydronephrosis Immunosuppression Left renal artery stenosis Morbid obesity Obstructive sleep apnea Osteoarthritis Renal calculi Segmental and somatic dysfunction of lumbar region Superficial thrombophlebitis TIA (transient ischemic attack) Home Medications pantoprazole 40 mg tablet,delayed release (Protonix) 40 mg PO DAILY gerd 12/20/19 [History Last Taken 12/02/22] oxybutynin chloride 10 mg tablet,extended release 24 hr 10 mg PO DAILY bladder 03/29/20 [History Last Taken 12/02/22] aspirin 81 mg tablet,delayed release (Adult Low Dose Aspirin) 81 mg PO DAILY HEART HEALTH 04/15/20 [History Last Taken 12/02/22] tacrolimus 1 mg capsule,extended release 24 hr 1 mg PO BID liver transplant 04/15/20 [History Last Taken 12/02/22] zafirlukast 20 mg tablet (Accolate) 20 mg PO Q12H BREATHING 04/15/20 [History Last Taken 12/02/22] sulfamethoxazole 400 mg-trimethoprim 80 mg tablet 2 tab PO MOWEFR preventative atb 07/17/20 [History Last Taken 12/02/22] oxycodone 5 mg tablet 5 mg PO TID PRN pain 3 days #12 tabs 10/06/21 [Rx Last Taken 12/02/22] atorvastatin 40 mg tablet 40 mg PO QHS CHOLESTEROL #90 tabs 01/26/22 [Rx Last Taken 12/02/22] doxazosin 8 mg tablet 8 mg PO QAM bp #90 tabs 10/06/22 [Rx Last Taken 12/02/22] nifedipine 90 mg tablet,extended release 24 hr (Procardia XL) 90 mg PO DAILY HEART #90 tabs 10/10/22 [Rx Last Taken 12/02/22] allopurinol 300 mg tablet 300 mg PO DAILY GOUT 11/02/22 [History Last Taken 12/02/22] clopidogrel 75 mg tablet 75 mg PO DAILY BLOOD THINNER 11/02/22 [History Last Taken 12/02/22] mycophenolate mofetil 250 mg capsule 500 mg PO BID Antirejection 11/02/22 [History Last Taken 12/02/22] nystatin 100,000 unit/gram topical powder (Nystop) 1 applic topical BID Skin 11/02/22 [History Last Taken 12/02/22] carvedilol 25 mg tablet (Coreg) 50 mg PO BID BP 11/07/22 [History Last Taken 12/02/22] acetaminophen 500 mg tablet 1,000 mg PO Q6H PRN PRN Pain Score 1-5 #0 tabs 11/16/22 [Rx Last Taken Unknown] dexamethasone 4 mg tablet 6 mg PO DAILYCM #8 tabs 11/29/22 [Rx Last Taken 12/02/22] glyburide 5 mg tablet 5 mg PO DAILY #8 tabs 11/29/22 [Rx Last Taken 12/02/22] Allergy/AdvReac Type Severity Reaction Status Date / Time metformin Allergy Other Verified 12/03/22 06:10 pregabalin [From Lyrica] Allergy Other Verified 12/03/22 06:10 Family History Grandmother PGM diabetes Paternal GM. Father Heart disease CVA (cerebral vascular accident) Hypertension Mother Parkinson disease Surgical History History of knee replacement History of left heart catheterization (04/03/20) History of stent insertion of renal artery (2014) Kidney transplant recipient (07/13/12) Kidney transplant recipient Liver transplant recipient (07/13/12) Social History household members: spouse Smoking Status: Never smoker second hand exposure: No alcohol intake: never substance use type: does not use caffeine: Yes frequency: 3-4 times per week ROS ROS Narrative Cough w productive sputum. Otherwise the review of systems is negative for all pierre expect as mentioned in the history of present illness. Vital Signs Vital Signs Vital Signs: 12/03/22 05:57 12/03/22 06:09 12/03/22 06:46 Temperature 36.7 C Temperature Source Temporal Pulse Rate 65 Respiratory Rate 22 H Respiratory Effort Labored Respiratory Depth Respiratory Pattern Blood Pressure 126/83 H Blood Pressure Mean 97 Pulse Ox 91 90 Oxygen Delivery Method Nasal Cannula Nasal Cannula Oxygen Flow Rate (L/min) 5 5 Fraction of Inspired Oxygen (FIO2) 12/03/22 06:46 12/03/22 06:46 12/03/22 07:04 Temperature Temperature Source Pulse Rate 81 76 Respiratory Rate 37 H 38 H 29 H Respiratory Effort Short of Breath Labored Accessory Muscle Use Respiratory Depth Respiratory Pattern Blood Pressure Blood Pressure Mean Pulse Ox 90 95 Oxygen Delivery Method Nasal Cannula Oxygen Flow Rate (L/min) 5 Fraction of Inspired Oxygen (FIO2) 50 12/03/22 08:11 12/03/22 08:44 12/03/22 08:55 Temperature Temperature Source Pulse Rate 76 75 73 Respiratory Rate 25 H 26 H 25 H Respiratory Effort Respiratory Depth Respiratory Pattern Blood Pressure 144/80 H Blood Pressure Mean 101 Pulse Ox 95 95 93 Oxygen Delivery Method Bi-pap Oxygen Flow Rate (L/min) Fraction of Inspired Oxygen (FIO2) 50 50 12/03/22 09:18 12/03/22 09:24 12/03/22 09:40 Temperature 37.0 C 37.0 C Temperature Source Temporal Temporal Pulse Rate 77 77 72 Respiratory Rate 26 H 26 H 23 H Respiratory Effort Respiratory Depth Respiratory Pattern Blood Pressure 143/84 H 143/84 H Blood Pressure Mean 103 103 Pulse Ox 94 94 95 Oxygen Delivery Method Bi-pap Bi-pap Oxygen Flow Rate (L/min) Fraction of Inspired Oxygen (FIO2) 50 12/03/22 10:34 12/03/22 10:40 Temperature 36.9 C Temperature Source Axillary Pulse Rate 72 Respiratory Rate 23 H Respiratory Effort Normal Non-Labored Respiratory Depth Normal Respiratory Pattern Tachypnea Blood Pressure 148/83 H Blood Pressure Mean 104 Pulse Ox 96 Oxygen Delivery Method Bi-pap Bi-pap Oxygen Flow Rate (L/min) Fraction of Inspired Oxygen (FIO2) 50 50 Weight Weight: 136.35 kg Body Mass Index (BMI) 43.1 Results Lab / Micro Data Attestation: I reviewed the patient's lab results. Result Diagrams: 12/03/22 06:18 12/03/22 06:18 Labs: Laboratory Results - last 24 hr 12/03/22 06:10: PT 13.4, INR 1.0, APTT 25.8 12/03/22 06:18: WBC 16.3 H, RBC 4.51 L, Hgb 13.1, Hct 38.5 L, MCV 85.4 D, MCH 29.0, MCHC 34.0 D, RDW Std Deviation 39.6, RDW Coeff of Leonie 13.0, Plt Count 150, MPV 10.8, Immature Gran % (Auto) 1.300 H, Neut % (Auto) 85.0 H, Lymph % (Auto) 8.1 L, [place] % (Auto) 5.5, Eos % (Auto) 0.0, Baso % (Auto) 0.1, Absolute Neuts (auto) 13.8 H, Absolute Lymphs (auto) 1.32, Nucleated RBC % 0.3 12/03/22 06:18: Sodium 138, Potassium 3.9, Chloride 107, Carbon Dioxide 26.0, Anion Gap 5, BUN 37 H, Creatinine 1.33 H, Estim Creat Clear Calc 52.60, Est GFR (MDRD) Af Amer 68, Est GFR (MDRD) Non-Af 56 L, BUN/Creatinine Ratio 27.8 H, Glucose 172 H, Calcium 8.2 L, Magnesium 1.5 L, Troponin I High Sens 31 12/03/22 06:18: B-Natriuretic Peptide 168.2 H Radiology Impression Chest CTA 12/03/22 06:12 IMPRESSION: Limited study. No pulmonary embolus. No thoracic aortic aneurysm. The contrast bolus is insufficient to exclude thoracic aortic dissection. Patchy airspace opacities in the mid to lower lung pierre bilaterally, consistent with an infectious etiology. COVID Pneumonia should be excluded. Atherosclerosis and coronary artery disease. Fatty liver. Electronically Signed: Michael Machado MD at 8:53 EDT , Assessment & Plan Assessment/Plan (1) Acute respiratory failure with hypoxia: PLAN: +COVID, but cannot rule out pneumonia or CHF at this time. Currently on BiPAP, wean as tolerated Check ABG Pulmonary toilet Pip/tazo Furosemide challenge (2) COVID-19: PLAN: continue dexamethasone until completes 10 days. quarantine through the th per prior ID recs (3) History of liver transplant: PLAN: Continue w mycophenolate and tacrolimus. Resume prednisone after dexamethasone (4) History of renal transplant: PLAN: Continue w mycophenolate and tacrolimus. Resume prednisone after dexamethasone (5) Debility: PLAN: PT OT PLAN: Plan Chronic stable conditions: * Nonobstructive CAD: l continue home asa, plavix, statin, BB, not on ACEI/ARB likely secondary to underlying renal disease/transplant status. 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 * Liver chemistry and kidney function reviewed.? ALT AST total bilirubin normal limit.? Albumin 2.6, total protein 5.1 low.? BUN/creatinine 21/1.27.? Creatinine clearance 55 ml/min.? Continue patient's immunosuppressive medications including Tacrolimus, Bactrim DS but hold mycophenolate due to COVID-19 infection, thrombocytopenia.? If infection and platelet improved can resume mycophenolate Chronic Pain Syndrome: Patient prior on chronic pain regimen with ongoing evaluation with Dr. Beckman, on chronic oxycodone regimen. * AOCD/Chronic anemia: Admission Hgb 12.6, last noted Hgb 11/15/22 12.5, basleine prior 13, will continue to trend. * Hx CVA/TIA: Will continue home asa, plavix, statin, HTN regimen as noted. * Hx L renal artery stenosis: s/p renal artery stent placement, will continue home asa, plavix, statin, HTN regimen as noted. * Hypertension w/ recent HTN emergency, resolved: Continue home regimen including doxazosin, nifedipine, Coreg, PRN hydralazine.? Blood pressure normal. * Hyperlipidemia: We will continue patient on statin therapy. * Asthma: Not on chronic regimen, given acute presentation #1 we will maintain on scheduled budesonide, will have PRN albuterol, encourage HOB and IS, continue home zafirlukast regimen. * Gout:? continue patient home allopurinol regimen. * Morbid Obesity: Weight loss and lifestyle changes encouraged. * GERD: continue home PPI. * PAUL: currently on BiPAP DVT Prophylaxis: LMWH Code status: unsure. Told pt he will be full code until he tells us otherwise. . Charges/Coding Visit Charges Inpatient E&M: 61503 Init Hosp L3
[2022-12-03 11:44] LABS: Color, Urine Yellow (Yellow); Glucose, Dipstick Normal (Normal); Ketone-Dipstick Negative (Negative); Leukocyte Esterase-Dipstick 500 /ul (Negative); Mucous, Urine 0 SEEN /hpf (<or=2+); Nitrite-Dipstick Negative (Negative); Occult Blood-Urine 50 /ul (Negative); Protein-Dipstick 30 mg/dl (Negative); Red Blood Cells-Urine 0 SEEN /hpf (0-5); Squamous Epithelial Cells - UA 0 SEEN /hpf (0-5); Urine Bilirubin Dipstick Negative (Negative); Urine Clarity Clear (Clear); Urine Urobilinogen Normal (Normal)
[2022-12-03 12:00] LABS: Base Excess 1 mmol/L (-2 to +2); Bicarbonate 24.5 mmol/L (22-26); Blood Gas Specimen Type ART; FI02 50; Mode BiLevel; O2 Delivery Device BiPAP; PO2 84 mmHG (75-100); RR 12; SITE R Radial; SO2 97 % (95-99); Total Carbon Dioxide 26 mmol/L; Vt 450; pCO2 34.7 mmHg (35-45); pH 7.46 (7.35-7.45)
[2022-12-03 12:13] LABS: White Blood Cells 50-100 SEEN /hpf (0-5)
[2022-12-03 12:14] LABS: Bacteria 1+ /hpf (None Seen)
[2022-12-03] MEDS: Enoxaparin 40 MG/0.4 ML Syringe SC (13:04)
[2022-12-03] MEDS: Tacrolimus Anhydrous 1 MG Capsule PO ×2 (13:05→21:59)
[2022-12-03] MEDS: Menthol/Lanolin/Calamine/Znox 113 GM Tube 1 APPLIC TOPICAL ×2 (13:05→21:15)
[2022-12-03] MEDS: Mycophenolate Mofetil 250 MG Capsule 500 MG PO ×2 (13:05→21:59)
[2022-12-03] MEDS: Furosemide 40 MG/4 ML Vial IV ×2 (13:05→17:45)
[2022-12-03] MEDS: Carvedilol 25 MG Tablet 50 MG PO ×2 (13:06→21:14)
[2022-12-03] MEDS: Pantoprazole Sodium 40 MG Tablet PO (13:06)
[2022-12-03] MEDS: Aspirin E.C. 81 MG Tablet PO (13:06)
[2022-12-03] MEDS: Tolterodine Tartrate 2 MG CAP.SA PO (13:07)
[2022-12-03] MEDS: NIFEdipine 90 MG Tablet PO (13:07)
[2022-12-03] MEDS: Clopidogrel Bisulfate 75 MG Tablet PO (13:07)
[2022-12-03] MEDS: Allopurinol 300 MG Tablet PO (13:08)
[2022-12-03] MEDS: Smz/Tmp Ds Tablet 0.5 TABLET PO (13:08)
[2022-12-03 16:31] LABS: Bedside Glucose 107 mg/dL (74-106)
[2022-12-03] MEDS: Acetaminophen 500 MG Tablet 1000 MG PO (17:44)
[2022-12-03] MEDS: 0.9% Saline Lock 10 ML Syringe IV ×2 (17:45→21:18)
[2022-12-03] MEDS: Montelukast 10 MG Tablet PO (21:13)
[2022-12-03] MEDS: oxyCODONE 5 MG Tablet PO (21:13)
[2022-12-03] MEDS: Atorvastatin Calcium 40 MG Tablet PO (21:13)
[2022-12-03] MEDS: Nystatin Powder 15gm Bottle 1 APPLIC TOPICAL (21:59)
[2022-12-04] VITALS (11 sets, daily range): BP systolic 119–169; BP diastolic 72–99; PULSE 67–80; RESP 16–25; TEMP 36.9–38.7; O2SAT 93–97
[2022-12-04] MEDS: Acetaminophen 500 MG Tablet 1000 MG PO ×2 (01:49→17:47)
[2022-12-04] MEDS: 0.9% Saline Lock 10 ML Syringe IV ×2 (02:28→05:47)
[2022-12-04] MEDS: Ondansetron 4 MG/2 ML Vial IV ×2 (02:28→10:48)
--- NOTE | 2022-12-04 03:30 | RAD_ITS ---
EXAM: XR ABDOMEN, 1 VIEW CLINICAL INDICATION: vomiting TECHNIQUE: Frontal supine view of the abdomen/pelvis. This report was created using [employer] report generation technology. COMPARISON: None. FINDINGS: LIMITATIONS: The exam is limited due to large body habitus and difficulty with patient cooperation. Right lateral aspect of the abdomen is incompletely visualized. LOWER THORAX: No acute pathology. GASTROINTESTINAL TRACT: Stomach is moderately distended with gas. There are few mildly dilated small bowel loops in the midabdomen. ORGANS: Unremarkable as visualized. No organomegaly. No abnormal calcifications. BONES/JOINTS: No acute pathology. SOFT TISSUES: No acute pathology. RAD/Abdomen Single View (Portable) IMPRESSION: Limited exam. Mildly dilated small bowel loops in the midabdomen may be due to ileus or obstruction. Electronically Signed: Cody Morrow MD at 3:55 EDT ,
--- NOTE | 2022-12-04 03:30 | RAD_ITS ---
EXAM: XR CHEST, 1 VIEW CLINICAL INDICATION: sob TECHNIQUE: Frontal view of the chest. This report was created using [employer] report generation technology. COMPARISON: 11/27/2022. FINDINGS: LUNGS AND PLEURAL SPACES: Atelectasis and patchy areas of opacification bilaterally in the lung bases likely represents a combination of atelectasis and pneumonia. Low lung volumes limit the exam. No consolidations. Subsegmental atelectasis right upper lobe. No pneumothorax. No effusion. HEART: Stable mild cardiomegaly. MEDIASTINUM: Central airways and mediastinal contour are unremarkable. BONES/JOINTS: Unremarkable. SOFT TISSUES: Unremarkable. RAD/Chest 1 View (Portable) IMPRESSION: 1. Atelectasis and patchy areas of opacification bilaterally in the lung bases likely represents a combination of atelectasis and pneumonia. Findings are similar to the prior exam. 2. Low lung volumes limit the exam. No consolidations. 3. Stable mild cardiomegaly. Electronically Signed: Cody Morrow MD at 5:10 EDT ,
--- NOTE | 2022-12-04 03:40 | CPS ---
Patient placed on AIRVO.. Patient was vomitting on BIPAP
--- NOTE | 2022-12-04 03:43 | NURSING ---
PTS TEMP HAS CLIMBED TO 103 EVEN AFTER TYLENOL AN HOUR PRIOR. 2ND EMESIS MORE LIKE STOOL. TAKEN OFF BIPAP D/T EMESIS AND WAS PLACED ON 15L HIFLO TO MAINTAIN 88-90%. DR FONSECA MADE AWARE AND NEW ORDERS RECEIVED. PT CHANGED TO STEPDOWN MONITOR BY LESTER TO MORE CLOSELY MONITOR VS. ----KUB/CXR DONE, ICE PACKS APPLIED. RESP THERAPY IN PUTTING PT ON AIRVO.
--- NOTE | 2022-12-04 04:03 | NURSING ---
PT HAS REPEATEDLY REMOVED HIS BIPAP THROUGHOUT THE NIGHT AND THEN CALLS FOR NURSE TO PUT IT BACK ON. HE HAS ALREADY PULLED HIS AIRVO OFF AND WAS SATTING LOW 80'S HIGH 70S. PT TOLD, AGAIN, NOT TO REMOVE.
[2022-12-04] MEDS: oxyCODONE 5 MG Tablet PO ×2 (05:46→17:47)
[2022-12-04 06:15] LABS: Bedside Glucose 81 mg/dL (74-106)
--- NOTE | 2022-12-04 06:43 | PCM.PN.BLA ---
Progress Note KUB with ileus vs obstruction. Keep npo
[2022-12-04 07:38] LABS: Absolute Lymphocyte Count 1.53 X10^3/uL (0.83-4.51); Absolute Neutrophil Count 12.6 X10^3/uL (2.0-7.7); Basophil# 0.02 X10^3/uL; Basophil% 0.1 % (0-1); Eosinophil# 0.03 X10^3/uL; Eosinophils% 0.2 % (0-5); Hematocrit 37.1 % (40-54); Lymphocyte # 1.53 X10^3/ul (0.83-4.51); Lymphocyte % 10.2 % (19-41); Mean Corp Hgb Conc 32.3 g/dL (32-36); Mean Corpuscular Hgb 28.6 pg (27.0-32.0); Mean Corpuscular Volume 88.3 fL (80-94); Mean Platelet Vol. 10.7 fl (6.2-12.0); Monocyte# 0.64 X10^3/uL; Monocyte% 4.3 % (0-10); NRBC Flagged by Analyzer 0 % (0-5); Neutrophil # 12.64 X10^3/uL (2.7-7.7); Platelet Count 136 K/mm3 (150-450); RBC Distribution Width CV 13.5 % (11.6-14.6); RBC Distribution Width SD 43.1 fl (35.1-43.9)
[2022-12-04 07:53] LABS: Anion Gap 6 (5-15); BUN 34 mg/dL (7-18); BUN/Creat Ratio 23.3 RATIO (10-20); Calcium,Total 8.1 mg/dL (8.5-10.1); Chloride 104 mmol/L (98-107); Creatinine, Serum 1.46 mg/dL (0.70-1.30); EST Glomerular Filtration Rate 51 mL/min (>60); Est Glom Filt Rate - Afr Amer 61 mL/min (>60); Estimated Creatinine Clearance 47.92 ml/min; Glucose 82 mg/dL (74-106); Potassium 3.1 mmol/L (3.5-5.1); Sodium Level 138 mmol/L (136-145)
--- NOTE | 2022-12-04 08:27 | PN.HOSP_ITS ---
Reason for Visit Reason for Visit: Diagnoses Acute respiratory failure with hypoxia (12/03/22) Other malaise (12/03/22) COVID-19 (12/03/22) Kidney transplant status (12/03/22) Liver transplant status (12/03/22) Subjective Subjective Events reviewed. Last night he developed nausea and vomiting, then breath got worse again. Objective Data Objective Data Vital Signs: Vital Signs Temp Pulse Resp BP Pulse Ox O2 Del Method O2 Flow Rate 38.4 C H 74 25 H 169/99 H 94 Airvo 50 12/04/22 05:47 12/04/22 05:47 12/04/22 05:47 12/04/22 01:47 12/04/22 05:47 12/04/22 05:47 12/04/22 03:38 FiO2 60 12/04/22 03:38 Oxygen Flow Rate (L/min) 50 Oxygen Delivery Method Airvo Weight: 136.35 kg Body Mass Index (BMI) 43.1 Intake & Output: Intake and Output for Last 24 Hours 12/02/22 12/03/22 12/04/22 23:59 23:59 23:59 Intake Total 560 / 560 50 / 50 Output Total 500 / 500 Balance 60 / 60 50 / 50 Lab / Micro Data Result Diagrams: 12/04/22 06:28 12/04/22 06:28 Labs: Laboratory Results - last 24 hr 12/03/22 11:00: Urine Color Yellow, Urine Clarity Clear, Urine pH 5.0, Ur Specific [place] 1.010, Urine Protein 30 H, Urine Glucose (UA) Normal, Urine Ketones Negative, Urine Occult Blood 50 H, Urine Nitrite Negative, Urine Bilirubin Negative, Urine Urobilinogen Normal, Ur Leukocyte Esterase 500 H, Urine RBC 0 SEEN, Urine WBC 50-100 SEEN, Ur Squamous Epith Cells 0 SEEN, Urine Bacteria 1+, Urine Mucus 0 SEEN 12/03/22 16:00: POC Glucose 107 H 12/04/22 05:44: POC Glucose 81 12/04/22 06:28: WBC 15.0 H, RBC 4.20 L, Hgb 12.0 L, Hct 37.1 L, MCV 88.3, MCH 28.6, MCHC 32.3, RDW Std Deviation 43.1, RDW Coeff of Leonie 13.5, Plt Count 136 L, MPV 10.7, Immature Gran % (Auto) 1.200 H, Neut % (Auto) 84.0 H, Lymph % (Auto) 10.2 L, [place] % (Auto) 4.3, Eos % (Auto) 0.2, Baso % (Auto) 0.1, Absolute Neuts (auto) 12.6 H, Absolute Lymphs (auto) 1.53, Nucleated RBC % 0 12/04/22 06:28: Sodium 138, Potassium 3.1 L, Chloride 104, Carbon Dioxide 28.0, Anion Gap 6, BUN 34 H, Creatinine 1.46 H, Estim Creat Clear Calc 47.92, Est GFR (MDRD) Af Amer 61, Est GFR (MDRD) Non-Af 51 L, BUN/Creatinine Ratio 23.3 H, Glucose 82, Calcium 8.1 L Micro: Microbiology 12/03/22 10:45 Urine, Random Legionella Antigen - Final 12/03/22 10:45 Urine, Random Streptococcus pneumoniae Antigen (M - Final ABG Data ABG results: ABG 12/03/22 11:54 Specimen Type ART Sample Site R Radial pH 7.46 H Bicarbonate Actual 24.5 Total CO2 26 Base Excess 1 O2 Saturation 97 O2 % 50 ABG pCO2 34.7 L ABG pO2 84 Zeke Test N/A Respiration Rate 12 O2 Delivery Device BiPAP Vent Mode BiLevel Tidal Volume 450 Radiography Diagnostic Testing: Radiology Impression Chest CTA 12/03/22 06:12 IMPRESSION: Limited study. No pulmonary embolus. No thoracic aortic aneurysm. The contrast bolus is insufficient to exclude thoracic aortic dissection. Patchy airspace opacities in the mid to lower lung pierre bilaterally, consistent with an infectious etiology. COVID Pneumonia should be excluded. Atherosclerosis and coronary artery disease. Fatty liver. Electronically Signed: Michael Machado MD at 8:53 EDT , Chest X-Ray 12/04/22 03:30 IMPRESSION: 1. Atelectasis and patchy areas of opacification bilaterally in the lung bases likely represents a combination of atelectasis and pneumonia. Findings are similar to the prior exam. 2. Low lung volumes limit the exam. No consolidations. 3. Stable mild cardiomegaly. Electronically Signed: Cody Morrow MD at 5:10 EDT , KUB X-Ray 12/04/22 03:30 IMPRESSION: Limited exam. Mildly dilated small bowel loops in the midabdomen may be due to ileus or obstruction. Electronically Signed: Cody Morrow MD at 3:55 EDT , Physical Exam Const alert and no apparent distress HEENT head/scalp atraumatic and moist oral mucous membranes Resp normal respiratory effort, no retractions, no use of accessory muscles and clear to auscultation bilaterally Cardio regular rate, regular rhythm, S1 normal heart sound and S2 normal heart sound GI GI Narrative: obese, soft, NT. Extremity normal to inspection and full ROM Assessment & Plan Assessment/Plan (1) Acute respiratory failure with hypoxia: PLAN: +COVID, but cannot rule out pneumonia or CHF at this time. Currently on BiPAP, wean as tolerated Check ABG Pulmonary toilet Pip/tazo 4/: able to be taken off BiPAP and tolerated 2 liters, however, required being placed on BiPAP and subsequently on airvo. 4/2: CXR showing low volumes with ATX. Add PEP therapy. Likely a component of splinting from SBO/ileus. DC furosemide given rise in creatinine and current NPO status. Wean oxygen as able. (2) COVID-19: PLAN: continue dexamethasone until completes 10 days. quarantine through the per prior ID recs (3) History of liver transplant: PLAN: Continue w mycophenolate and tacrolimus. Resume prednisone after dexamethasone (4) History of renal transplant: PLAN: Continue w mycophenolate and tacrolimus. Resume prednisone after dexamethasone 4/2: creatinine up. Hold off on IVF for now given worsening respiratory status (5) Debility: PLAN: PT OT (6) Ileus: PLAN: Developed /2. Not present on arrival Cannot rule out SBO at this time NPO Cannot rule out need for NGT (7) Hypokalemia: PLAN: Replace Also replace magnesium as it was 1.5 yesterday PLAN: Plan Chronic stable conditions: * Nonobstructive CAD: l continue home asa, plavix, statin, BB, not on ACEI/ARB likely secondary to underlying renal disease/transplant status. 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 * Liver chemistry and kidney function reviewed.? ALT AST total bilirubin normal limit.? Albumin 2.6, total protein 5.1 low.? BUN/creatinine .? Creatinine clearance 55 ml/min.? Continue patient's immunosuppressive medications including Tacrolimus, Bactrim DS but hold mycophenolate due to COVID-19 infection, thrombocytopenia.? If infection and platelet improved can resume mycophenolate Chronic Pain Syndrome: Patient prior on chronic pain regimen with ongoing evaluation with Dr. Beckman, on chronic oxycodone regimen. * AOCD/Chronic anemia: Admission Hgb 12.6, last noted Hgb 11/15/22 12.5, basleine prior 13, will continue to trend. * Hx CVA/TIA: Will continue home asa, plavix, statin, HTN regimen as noted. * Hx L renal artery stenosis: s/p renal artery stent placement, will continue home asa, plavix, statin, HTN regimen as noted. * Hypertension w/ recent HTN emergency, resolved: Continue home regimen including doxazosin, nifedipine, Coreg, PRN hydralazine.? Blood pressure normal. * Hyperlipidemia: We will continue patient on statin therapy. * Asthma: Not on chronic regimen, given acute presentation #1 we will maintain on scheduled budesonide, will have PRN albuterol, encourage HOB and IS, continue home zafirlukast regimen. * Gout:? continue patient home allopurinol regimen. * Morbid Obesity: Weight loss and lifestyle changes encouraged. * GERD: continue home PPI. * PAUL: currently on BiPAP DVT Prophylaxis: LMWH Code status: unsure. Told pt he will be full code until he tells us otherwise. Disposition: TBD. DW pt's at bedside. Charges/Coding Visit Charges Inpatient E&M: 85184 Subs Hosp L2
[2022-12-04] MEDS: Magnesium Sulfate 4gm/100mL 4 GM/100 ML IV.SOLN. IV (10:32)
[2022-12-04] MEDS: Potassium Chloride 10mEq/100mL 10 MEQ/100 ML IV.SOLN. 100 MEQ IV BOLUS ×4 (10:32→15:14)
[2022-12-04] MEDS: dexAMETHasone 4 MG Tablet 6 MG PO (10:34)
[2022-12-04] MEDS: Mycophenolate Mofetil 250 MG Capsule 500 MG PO ×2 (10:34→20:38)
[2022-12-04] MEDS: Doxazosin 4 MG Tablet 8 MG PO (10:34)
[2022-12-04] MEDS: NIFEdipine 90 MG Tablet PO (10:34)
[2022-12-04] MEDS: Enoxaparin 40 MG/0.4 ML Syringe SC (10:34)
[2022-12-04] MEDS: Allopurinol 300 MG Tablet PO (10:37)
[2022-12-04] MEDS: Clopidogrel Bisulfate 75 MG Tablet PO (10:37)
[2022-12-04] MEDS: Tacrolimus Anhydrous 1 MG Capsule PO ×2 (10:37→20:38)
[2022-12-04] MEDS: Tolterodine Tartrate 2 MG CAP.SA PO (10:37)
[2022-12-04] MEDS: Aspirin E.C. 81 MG Tablet PO (10:37)
[2022-12-04] MEDS: Menthol/Lanolin/Calamine/Znox 113 GM Tube 1 APPLIC TOPICAL ×2 (10:38→20:35)
[2022-12-04] MEDS: Carvedilol 25 MG Tablet 50 MG PO ×2 (10:38→20:38)
[2022-12-04] MEDS: Pantoprazole Sodium 40 MG Tablet PO (10:38)
[2022-12-04] MEDS: Nystatin Powder 15gm Bottle 1 APPLIC TOPICAL ×2 (10:39→20:35)
[2022-12-04 11:06] LABS: Bedside Glucose 94 mg/dL (74-106)
--- NOTE | 2022-12-04 16:15 | CPS ---
pt sat was 99% on AIRVO. Weaned patient to HFNC 7L sat 96%. AIRVO/ BIPAP on standby in room.
[2022-12-04 16:21] LABS: Bedside Glucose 98 mg/dL (74-106)
[2022-12-04] MEDS: Atorvastatin Calcium 40 MG Tablet PO (20:38)
[2022-12-04] MEDS: Montelukast 10 MG Tablet PO (20:38)
[2022-12-04 21:05] LABS: Bedside Glucose 147 mg/dL (74-106)
[2022-12-05 03:05] VITALS: BP 119/71; PULSE 70; RESP 18; TEMP 36.6; O2SAT 98
[2022-12-05 04:25] VITALS: PULSE 72; RESP 18; O2SAT 93
[2022-12-05 06:12] LABS: Absolute Lymphocyte Count 0.64 X10^3/uL (0.83-4.51); Absolute Neutrophil Count 11.5 X10^3/uL (2.0-7.7); Basophil# 0.01 X10^3/uL; Basophil% 0.1 % (0-1); Hemoglobin 11.9 g/dL (13.0-16.5); Lymphocyte # 0.64 X10^3/ul (0.83-4.51); Lymphocyte % 5.1 % (19-41); Mean Corp Hgb Conc 33.1 g/dL (32-36); Mean Corpuscular Hgb 29.2 pg (27.0-32.0); Mean Corpuscular Volume 88.2 fL (80-94); Mean Platelet Vol. 11.5 fl (6.2-12.0); Monocyte# 0.23 X10^3/uL; Monocyte% 1.8 % (0-10); NRBC Flagged by Analyzer 0 % (0-5); Neutrophil # 11.51 X10^3/uL (2.7-7.7); Neutrophil % 91.8 % (47-70); Platelet Count 147 K/mm3 (150-450); RBC Distribution Width CV 12.9 % (11.6-14.6); RBC Distribution Width SD 41.1 fl (35.1-43.9); Red Blood Count 4.08 M/mm3 (4.6-6.2); White Blood Count 12.5 K/mm3 (4.4-11.0)
[2022-12-05] MEDS: Insulin Lispro 100 UNIT/ML INSULN.PEN SC ×4 (06:30→22:20)
[2022-12-05 06:40] LABS: Bedside Glucose 232 mg/dL (74-106)
[2022-12-05 06:41] LABS: Anion Gap 12 (5-15); BUN 53 mg/dL (7-18); Calcium,Total 8.2 mg/dL (8.5-10.1); Chloride 100 mmol/L (98-107); Creatinine, Serum 1.71 mg/dL (0.70-1.30); EST Glomerular Filtration Rate 42 mL/min (>60); Est Glom Filt Rate - Afr Amer 51 mL/min (>60); Estimated Creatinine Clearance 40.91 ml/min; Glucose 239 mg/dL (74-106); Potassium 4.6 mmol/L (3.5-5.1); Sodium Level 134 mmol/L (136-145)
[2022-12-05 08:48] VITALS: O2SAT 96
[2022-12-05 09:00] VITALS: BP 138/73; PULSE 75; RESP 18; TEMP 36.6; O2SAT 93
[2022-12-05] MEDS: dexAMETHasone 4 MG Tablet 6 MG PO (09:40)
[2022-12-05] MEDS: Carvedilol 25 MG Tablet 50 MG PO ×2 (09:41→22:17)
[2022-12-05] MEDS: Menthol/Lanolin/Calamine/Znox 113 GM Tube 1 APPLIC TOPICAL ×2 (09:41→22:19)
[2022-12-05] MEDS: Nystatin Powder 15gm Bottle 1 APPLIC TOPICAL ×2 (09:43→22:19)
[2022-12-05] MEDS: Tolterodine Tartrate 2 MG CAP.SA PO (10:08)
[2022-12-05] MEDS: Enoxaparin 40 MG/0.4 ML Syringe SC (10:08)
[2022-12-05] MEDS: oxyCODONE 5 MG Tablet PO ×2 (10:08→22:18)
[2022-12-05] MEDS: Pantoprazole Sodium 40 MG Tablet PO (10:09)
[2022-12-05] MEDS: Aspirin E.C. 81 MG Tablet PO (10:09)
[2022-12-05] MEDS: Clopidogrel Bisulfate 75 MG Tablet PO (10:09)
[2022-12-05] MEDS: Acetaminophen 500 MG Tablet 1000 MG PO ×2 (10:09→22:17)
--- NOTE | 2022-12-05 11:23 | PCM.PN.HOSP ---
Reason for Visit Reason for Visit: Diagnoses Hypokalemia (12/03/22) Acute respiratory failure with hypoxia (12/03/22) Ileus, unspecified (12/03/22) Other malaise (12/03/22) COVID-19 (12/03/22) Kidney transplant status (12/03/22) Liver transplant status (12/03/22) Subjective Subjective Patient is a 72-year-old gentleman with history of kidney and liver transplant admitted with progressive shortness of breath diagnosed with COVID-19 with hypoxic respiratory failure Objective Data Objective Data Vital Signs: Vital Signs Temp Pulse Resp BP Pulse Ox O2 Del Method O2 Flow Rate 97.9 F 75 18 138/73 H 93 Nasal Cannula 7 12/05/22 09:00 12/05/22 09:00 12/05/22 09:00 12/05/22 09:00 12/05/22 09:00 12/05/22 10:00 12/05/22 10:00 FiO2 40 12/05/22 04:25 Oxygen Flow Rate (L/min) 7 Oxygen Delivery Method Nasal Cannula Weight: 136.35 kg Body Mass Index (BMI) 43.1 Intake & Output: Intake and Output for Last 24 Hours 12/03/22 12/04/22 12/05/22 23:59 23:59 23:59 Intake Total 560 / 560 850 / 850 300 / 300 Output Total 500 / 500 550 / 550 300 / 300 Balance 60 / 60 300 / 300 0 / 0 Lab / Micro Data Result Diagrams: 12/05/22 05:08 12/05/22 05:09 Labs: Laboratory Results - last 24 hr 12/04/22 15:59: POC Glucose 98 12/04/22 20:34: POC Glucose 147 H 12/05/22 05:08: WBC 12.5 H, RBC 4.08 L, Hgb 11.9 L, Hct 36.0 L, MCV 88.2, MCH 29.2, MCHC 33.1, RDW Std Deviation 41.1, RDW Coeff of Leonie 12.9, Plt Count 147 L, MPV 11.5, Immature Gran % (Auto) 1.200 H, Neut % (Auto) 91.8 H, Lymph % (Auto) 5.1 L, [place] % (Auto) 1.8, Eos % (Auto) 0.0, Baso % (Auto) 0.1, Absolute Neuts (auto) 11.5 H, Absolute Lymphs (auto) 0.64 L, Nucleated RBC % 0 12/05/22 05:09: Sodium 134 L, Potassium 4.6, Chloride 100, Carbon Dioxide 22.0, Anion Gap 12, BUN 53 H, Creatinine 1.71 H, Estim Creat Clear Calc 40.91, Est GFR (MDRD) Af Amer 51 L, Est GFR (MDRD) Non-Af 42 L, BUN/Creatinine Ratio 31.0 H, Glucose 239 H, Calcium 8.2 L, Magnesium 3.0 H 12/05/22 06:20: POC Glucose 232 H Micro: Microbiology 12/03/22 10:45 Urine, Random Legionella Antigen - Final 12/03/22 10:45 Urine, Random Streptococcus pneumoniae Antigen (M - Final Physical Exam Narrative GENERAL: cooperative HEENT: Atraumatic; normocephalic EYES; Anicteric, Normal Conjunctiva NECK; supple, normal thyroid, RESPIRATORY: Diminished to auscultation CARDIOVASCULAR: Regular S1 S2, GI: soft, normoactive bowel sounds, : No Renal angle tenderness; EXTREMITIES: No edema, no clubbing, MUSCULOSKELETAL: no muscle wasting NEURO: Awake; no lateralizing signs. SKIN: No Rash PSYCH; Flat affect Const alert and no apparent distress HEENT head/scalp atraumatic and moist oral mucous membranes Resp normal respiratory effort, no retractions, no use of accessory muscles and clear to auscultation bilaterally Cardio regular rate, regular rhythm, S1 normal heart sound and S2 normal heart sound GI GI Narrative: obese, soft, NT. Extremity normal to inspection and full ROM Assessment & Plan Assessment/Plan (1) Acute respiratory failure with hypoxia: PLAN: Plan Patient is a 72-year-old gentleman with history of kidney and liver transplant admitted with progressive shortness of breath diagnosed with COVID-19 with hypoxic respiratory failure 1. Acute hypoxic respiratory failure ? Secondary to COVID-19 pneumonia. Patient management noninvasive ventilation BiPAP and subsequently transition to Airvo. Patient was placed on dexamethasone. Plan is for patient to remain in quarantine until 12/15/2022 2. History of liver and renal transplant ? Patient is on immunosuppressant agent with mycophenolate and tacrolimus 3. Class III obesity with BMI of 43.1 ? Weight loss advised 4. Chronic kidney disease stage IIIa ? Patient kidney function did improve following the renal transplant. 5. Nonalcoholic fatty liver disease with cirrhosis of the liver this was a reason for patient liver transplant 6. Anemia - Secondary to chronic disorder monitoring H&H and transfuse if patient becomes symptomatic or hemoglobin falls below 7 7. History of renal artery stenosis ? Status post renal artery stent placement patient is on dual antiplatelet therapy in addition to statin therapy 8. Dyslipidemia -Patient is on statin therapy, continued at home dose 9. Gout ? Patient is on allopurinol did continue 10. Sleep apnea ? Patient is on BiPAP at night 11. GERD ? Patient a PPI 12. Diabetes mellitus type II ? Patient presented with hyperglycemia due to concomitant use of steroid started on long-acting insulin in addition to Accu-Cheks before meals and at bedtime with sliding scale coverage 13. DVT prophylaxis ? Low molecular weight heparin Time spent in the patient's overall evaluation,decision-making process, review of diagnostic data, adjustment of management, discussion with other providers, nursing nursing and ancillary staff involved in patient's care documentation, 55 Minutes Charges/Coding Visit Charges Inpatient E&M: 33957 [facility] L3
[2022-12-05] MEDS: Smz/Tmp Ds Tablet 0.5 TABLET PO (11:31)
[2022-12-05] MEDS: Allopurinol 300 MG Tablet PO (11:32)
[2022-12-05] MEDS: Mycophenolate Mofetil 250 MG Capsule 500 MG PO ×2 (11:32→22:17)
[2022-12-05] MEDS: NIFEdipine 90 MG Tablet PO (11:32)
[2022-12-05] MEDS: Tacrolimus Anhydrous 1 MG Capsule PO ×2 (11:32→22:17)
[2022-12-05] MEDS: Doxazosin 4 MG Tablet 8 MG PO (11:32)
[2022-12-05 12:10] LABS: Bedside Glucose 295 mg/dL (74-106)
--- NOTE | 2022-12-05 12:45 | CASEMGMT ---
JESSICA BREWER Readmission Review: Index: 11/03/22-11/07/22-PCU Dx: HTN emergency to TCU 11/07/22-11/19/22- TCU to home w/[facility] 11/26/22 - 11/29/22 - COVID to home with [facility] Readmission: 12/03/22, Dx: Acute Hypoxic Respiratory Failure, COVID positive Pt with previous liver and kidney transplants, HTN, CAD, AOCD, previous CVA/TIA, asthma, gout, morbid obesity, GERD and PAUL was admitted on the above noted dates for the noted diagnoses. Pt was noted to have returned home with [facility] upon the last admission; however pt's states only one SN and one PT visit has been made. Pt's states pt develops respiratory distress and she does not feel equipped to care for patient and keep pt from returning to the ED. Pt expressed frustration with returning to the hospital for a third time. Pt's requested for pt to potentially go to a SNF for rehab where pt can receive more medical supervision prior to returning home. When pt asked his thoughts on this plan, pt's responded stating whatever I have to do. Explained would need to review pt's demonstrated ability with therapy for determination what level of care pt would qualify. Pt and agreeable to this plan. If SNF needed, explained pt's COVID diagnosis may limit some options. Pt and pt's expressed understanding. If pt were to return home and home O2 is needed, pt's preference is [facility]. Will continue to monitor and assist with DC needs as determined. Shahana David RN CM
[2022-12-05 15:00] VITALS: BP 122/69; PULSE 72; RESP 18; TEMP 36.6; O2SAT 93
[2022-12-05] MEDS: Insulin Lispro 100 UNIT/ML INSULN.PEN 10 UNIT SC (19:12)
[2022-12-05 19:51] LABS: Bedside Glucose 481 mg/dL (74-106)
[2022-12-05 22:00] VITALS: BP 126/85; PULSE 72; RESP 18; TEMP 37; O2SAT 93
[2022-12-05] MEDS: Atorvastatin Calcium 40 MG Tablet PO (22:17)
[2022-12-05] MEDS: Montelukast 10 MG Tablet PO (22:17)
[2022-12-05] MEDS: Insulin Glargine-YFGN 100 UNIT/ML Pen 15 UNIT SC (22:40)
[2022-12-06] VITALS (10 sets, daily range): BP systolic 131–153; BP diastolic 62–87; PULSE 64–80; RESP 18–28; TEMP 36.5–36.8; O2SAT 91–94
[2022-12-06 01:16] LABS: Bedside Glucose 411 mg/dL (74-106)
--- NOTE | 2022-12-06 05:31 | CPS ---
Turned airvo up to 75% for movement
[2022-12-06 06:04] LABS: Absolute Neutrophil Count 11.7 X10^3/uL (2.0-7.7); Basophil# 0.01 X10^3/uL; Basophil% 0.1 % (0-1); Hematocrit 32.1 % (40-54); Hemoglobin 11.4 g/dL (13.0-16.5); Lymphocyte % 3.9 % (19-41); Mean Corp Hgb Conc 35.5 g/dL (32-36); Mean Corpuscular Hgb 29.8 pg (27.0-32.0); Mean Corpuscular Volume 83.8 fL (80-94); Mean Platelet Vol. 11.4 fl (6.2-12.0); Monocyte# 0.46 X10^3/uL; Monocyte% 3.6 % (0-10); NRBC Flagged by Analyzer 0.2 % (0-5); Neutrophil # 11.69 X10^3/uL (2.7-7.7); Neutrophil % 91.6 % (47-70); POSITIVE DIFFERENTIAL YES; Platelet Count 134 K/mm3 (150-450); RBC Distribution Width CV 12.5 % (11.6-14.6); RBC Distribution Width SD 37.8 fl (35.1-43.9); Red Blood Count 3.83 M/mm3 (4.6-6.2); White Blood Count 12.8 K/mm3 (4.4-11.0)
[2022-12-06 06:06] LABS: Differential Indicated SCAN CRITERIA MET
[2022-12-06 06:41] LABS: AST(SGOT) 16 U/L (15-37); Alanine Aminotransfer ALT/SGPT 26 U/L (16-61); Albumin, Serum 2.6 g/dL (3.2-5.0); Alkaline Phosphatase 76 U/L (45-117); Anion Gap 7 (5-15); BUN 55 mg/dL (7-18); BUN/Creat Ratio 30.1 RATIO (10-20); Bilirubin, Direct 0.25 mg/dL (0.00-0.30); Calcium,Total 8.6 mg/dL (8.5-10.1); Chloride 97 mmol/L (98-107); Creatinine, Serum 1.83 mg/dL (0.70-1.30); EST Glomerular Filtration Rate 39 mL/min (>60); Est Glom Filt Rate - Afr Amer 47 mL/min (>60); Estimated Creatinine Clearance 38.23 ml/min; Globulin 3.5 g/dL (2.2-4.2); Glucose 274 mg/dL (74-106); Magnesium 3.1 mg/dL (1.6-2.6); Phosphorus 3.7 mg/dL (2.5-4.9); Potassium 3.9 mmol/L (3.5-5.1); Protein, Total 6.1 g/dL (6.4-8.2); Sodium Level 131 mmol/L (136-145)
[2022-12-06 06:55] LABS: Bedside Glucose 266 mg/dL (74-106)
--- NOTE | 2022-12-06 07:51 | PCM.PN.HOSP ---
Reason for Visit Reason for Visit: Diagnoses Hypokalemia (12/03/22) Acute respiratory failure with hypoxia (12/03/22) Ileus, unspecified (12/03/22) Other malaise (12/03/22) COVID-19 (12/03/22) Kidney transplant status (12/03/22) Liver transplant status (12/03/22) Subjective Subjective Added long-acting insulin to patient insulin regimen given his persistent hyperglycemia. Patient also desaturated during the night necessitating patient being placed back on Airvo Objective Data Objective Data Vital Signs: Vital Signs Temp Pulse Resp BP Pulse Ox O2 Del Method O2 Flow Rate 98.2 F 69 20 H 145/67 H 93 Airvo 50 12/06/22 04:46 12/06/22 04:46 12/06/22 05:00 12/06/22 04:46 12/06/22 05:00 12/06/22 04:46 12/06/22 04:46 FiO2 75 12/06/22 05:00 Oxygen Flow Rate (L/min) 50 Oxygen Delivery Method Airvo Weight: 136.35 kg Body Mass Index (BMI) 43.1 Intake & Output: Intake and Output for Last 24 Hours 12/04/22 12/05/22 12/06/22 23:59 23:59 23:59 Intake Total 850 / 850 350 / 350 50 / 50 Output Total 550 / 550 2400 / 2400 200 / 200 Balance 300 / 300 -2050 / -2050 -150 / -150 Lab / Micro Data Result Diagrams: 12/06/22 05:35 12/06/22 05:35 Labs: Laboratory Results - last 24 hr 12/05/22 11:28: POC Glucose 295 H 12/05/22 18:29: POC Glucose 481 H* 12/05/22 22:13: POC Glucose 411 H 12/06/22 05:00: POC Glucose 266 H 12/06/22 05:35: WBC 12.8 H, RBC 3.83 L, Hgb 11.4 L, Hct 32.1 L, MCV 83.8, MCH 29.8, MCHC 35.5 D, RDW Std Deviation 37.8, RDW Coeff of Leonie 12.5, Plt Count 134 L, MPV 11.4, Immature Gran % (Auto) 0.800, Neut % (Auto) 91.6 H, Lymph % (Auto) 3.9 L, [place] % (Auto) 3.6, Eos % (Auto) 0.0, Baso % (Auto) 0.1, Absolute Neuts (auto) 11.7 H, Absolute Lymphs (auto) 0.50 L, Nucleated RBC % 0.2 12/06/22 05:35: Sodium 131 L, Potassium 3.9, Chloride 97 L, Carbon Dioxide 27.0, Anion Gap 7, BUN 55 H, Creatinine 1.83 H, Estim Creat Clear Calc 38.23, Est GFR (MDRD) Af Amer 47 L, Est GFR (MDRD) Non-Af 39 L, BUN/Creatinine Ratio 30.1 H, Glucose 274 H, Calcium 8.6, Phosphorus 3.7, Magnesium 3.1 H, Total Bilirubin 0.60, Direct Bilirubin 0.25, AST 16, ALT 26, Alkaline Phosphatase 76, Total Protein 6.1 L, Albumin 2.6 L, Globulin 3.5 Micro: Microbiology 12/03/22 10:45 Urine, Random Legionella Antigen - Final 12/03/22 10:45 Urine, Random Streptococcus pneumoniae Antigen (M - Final Physical Exam Narrative GENERAL: cooperative HEENT: Atraumatic; normocephalic EYES; Anicteric, Normal Conjunctiva NECK; supple, normal thyroid, RESPIRATORY: Diminished to auscultation CARDIOVASCULAR: Regular S1 S2, GI: soft, normoactive bowel sounds, : No Renal angle tenderness; EXTREMITIES: No edema, no clubbing, MUSCULOSKELETAL: no muscle wasting NEURO: Awake; no lateralizing signs. SKIN: No Rash PSYCH; Flat affect Assessment & Plan Assessment/Plan (1) Acute respiratory failure with hypoxia: PLAN: Plan Patient is a 72-year-old gentleman with history of kidney and liver transplant admitted with progressive shortness of breath diagnosed with COVID-19 with hypoxic respiratory failure 1. Acute hypoxic respiratory failure ? Secondary to COVID-19 pneumonia. Patient management noninvasive ventilation BiPAP and subsequently transition to Airvo. Patient was placed on dexamethasone. Plan is for patient to remain in quarantine until 12/15/2022 ? 12/06/2022. Patient was weaned off Airvo the day prior was placed on nasal cannula 5 L flow per minute however had to be placed back on Airvo during the night after he desaturated. 2. History of liver and renal transplant ? Patient is on immunosuppressant agent with mycophenolate and tacrolimus 3. Class III obesity with BMI of 43.1 ? Weight loss advised 4. Chronic kidney disease stage IIIa ? Patient kidney function did improve following the renal transplant. 5. Nonalcoholic fatty liver disease with cirrhosis of the liver this was a reason for patient liver transplant 6. Anemia - Secondary to chronic disorder monitoring H&H and transfuse if patient becomes symptomatic or hemoglobin falls below 7 7. History of renal artery stenosis ? Status post renal artery stent placement patient is on dual antiplatelet therapy in addition to statin therapy 8. Dyslipidemia -Patient is on statin therapy, continued at home dose 9. Gout ? Patient is on allopurinol did continue 10. Sleep apnea ? Patient is on BiPAP at night 11. GERD ? Patient a PPI 12. Diabetes mellitus type II ? Patient presented with hyperglycemia due to concomitant use of steroid started on long-acting insulin in addition to Accu-Cheks before meals and at bedtime with sliding scale coverage ? 12/06/2022. Adjusted patient insulin regimen with addition of long-acting insulin and scheduled short acting insulin pre-meal 13. DVT prophylaxis ? Low molecular weight heparin Time spent in the patient's overall evaluation,decision-making process, review of diagnostic data, adjustment of management, discussion with other providers, nursing nursing and ancillary staff involved in patient's care documentation, 55 Minutes Charges/Coding Visit Charges Inpatient E&M: 83443 [facility] L3
[2022-12-06] MEDS: oxyCODONE 5 MG Tablet PO ×2 (10:17→16:06)
[2022-12-06] MEDS: Doxazosin 4 MG Tablet 8 MG PO (10:17)
[2022-12-06] MEDS: Aspirin E.C. 81 MG Tablet PO (10:17)
[2022-12-06] MEDS: Tolterodine Tartrate 2 MG CAP.SA PO (10:17)
[2022-12-06] MEDS: Carvedilol 25 MG Tablet 50 MG PO ×2 (10:17→23:56)
[2022-12-06] MEDS: dexAMETHasone 4 MG Tablet 6 MG PO (10:18)
[2022-12-06] MEDS: Clopidogrel Bisulfate 75 MG Tablet PO (10:18)
[2022-12-06] MEDS: NIFEdipine 90 MG Tablet PO (10:18)
[2022-12-06] MEDS: Acetaminophen 500 MG Tablet 1000 MG PO ×3 (10:18→23:55)
[2022-12-06] MEDS: Allopurinol 300 MG Tablet PO (10:18)
[2022-12-06] MEDS: Pantoprazole Sodium 40 MG Tablet PO (10:18)
[2022-12-06] MEDS: Tacrolimus Anhydrous 1 MG Capsule PO ×2 (10:19→23:56)
[2022-12-06] MEDS: Enoxaparin 40 MG/0.4 ML Syringe SC (10:19)
[2022-12-06] MEDS: Mycophenolate Mofetil 250 MG Capsule 500 MG PO ×2 (10:19→23:54)
[2022-12-06] MEDS: Insulin Lispro 100 UNIT/ML INSULN.PEN 10 UNIT SC ×3 (10:21→17:29)
[2022-12-06] MEDS: Insulin Lispro 100 UNIT/ML INSULN.PEN SC ×4 (10:21→23:58)
[2022-12-06] MEDS: Insulin Glargine-YFGN 100 UNIT/ML Pen 20 UNIT SC ×2 (10:24→17:28)
[2022-12-06] MEDS: Menthol/Lanolin/Calamine/Znox 113 GM Tube 1 APPLIC TOPICAL ×2 (10:25→23:56)
[2022-12-06] MEDS: Nystatin Powder 15gm Bottle 1 APPLIC TOPICAL ×2 (10:25→23:56)
[2022-12-06] MEDS: Senna/Docusate Sodium 1 Tablet 2 TABLET PO (13:40)
[2022-12-06 13:56] LABS: Bedside Glucose 313 mg/dL (74-106)
[2022-12-06 18:00] LABS: Bedside Glucose 245 mg/dL (74-106)
[2022-12-06] MEDS: Atorvastatin Calcium 40 MG Tablet PO (23:54)
[2022-12-06] MEDS: Montelukast 10 MG Tablet PO (23:54)
[2022-12-07] VITALS (11 sets, daily range): BP systolic 127–152; BP diastolic 78–90; PULSE 63–81; RESP 16–24; TEMP 36.6–36.9; O2SAT 91–95
[2022-12-07 00:45] LABS: Bedside Glucose 224 mg/dL (74-106)
[2022-12-07 06:46] LABS: Absolute Lymphocyte Count 0.65 X10^3/uL (0.83-4.51); Absolute Neutrophil Count 8.1 X10^3/uL (2.0-7.7); Basophil# 0.01 X10^3/uL; Basophil% 0.1 % (0-1); Hematocrit 30.9 % (40-54); Hemoglobin 10.5 g/dL (13.0-16.5); Lymphocyte # 0.65 X10^3/ul (0.83-4.51); Mean Corpuscular Hgb 28.9 pg (27.0-32.0); Mean Corpuscular Volume 85.1 fL (80-94); Mean Platelet Vol. 11.4 fl (6.2-12.0); Monocyte# 0.42 X10^3/uL; Monocyte% 4.5 % (0-10); NRBC Flagged by Analyzer 0 % (0-5); Neutrophil # 8.14 X10^3/uL (2.7-7.7); Neutrophil % 87.4 % (47-70); Platelet Count 142 K/mm3 (150-450); RBC Distribution Width CV 12.7 % (11.6-14.6); Red Blood Count 3.63 M/mm3 (4.6-6.2); White Blood Count 9.3 K/mm3 (4.4-11.0)
[2022-12-07 07:06] LABS: Anion Gap 7 (5-15); BUN 54 mg/dL (7-18); BUN/Creat Ratio 32.1 RATIO (10-20); Calcium,Total 8.2 mg/dL (8.5-10.1); Chloride 99 mmol/L (98-107); Creatinine, Serum 1.68 mg/dL (0.70-1.30); EST Glomerular Filtration Rate 43 mL/min (>60); Est Glom Filt Rate - Afr Amer 52 mL/min (>60); Estimated Creatinine Clearance 41.64 ml/min; Glucose 180 mg/dL (74-106); Sodium Level 133 mmol/L (136-145)
--- NOTE | 2022-12-07 07:36 | PCM.PN.HOSP ---
Reason for Visit Reason for Visit: Diagnoses Hypokalemia (12/03/22) Acute respiratory failure with hypoxia (12/03/22) Ileus, unspecified (12/03/22) Other malaise (12/03/22) COVID-19 (12/03/22) Kidney transplant status (12/03/22) Liver transplant status (12/03/22) Subjective Subjective Seen patient has been weaned down to 5 L flow per minute. Objective Data Objective Data Vital Signs: Vital Signs Temp Pulse Resp BP Pulse Ox O2 Del Method O2 Flow Rate 97.9 F 65 18 137/90 H 92 Nasal Cannula 5 12/07/22 04:05 12/07/22 04:05 12/07/22 04:05 12/07/22 04:05 12/07/22 04:05 12/07/22 04:05 12/07/22 04:05 FiO2 75 12/06/22 21:25 Oxygen Flow Rate (L/min) 5 Oxygen Delivery Method Nasal Cannula Weight: 136.35 kg Body Mass Index (BMI) 43.1 Intake & Output: Intake and Output for Last 24 Hours 12/05/22 12/06/22 12/07/22 23:59 23:59 23:59 Intake Total 350 / 350 150 / 150 50 / 50 Output Total 2400 / 2400 600 / 900 300 / 300 Balance -2050 / -2050 -450 / -750 -250 / -250 Lab / Micro Data Result Diagrams: 12/07/22 05:26 12/07/22 05:26 Labs: Laboratory Results - last 24 hr 12/06/22 13:26: POC Glucose 313 H 12/06/22 17:27: POC Glucose 245 H 12/06/22 23:50: POC Glucose 224 H 12/07/22 05:26: WBC 9.3, RBC 3.63 L, Hgb 10.5 L, Hct 30.9 L, MCV 85.1, MCH 28.9, MCHC 34.0, RDW Std Deviation 39.0, RDW Coeff of Leonie 12.7, Plt Count 142 L, MPV 11.4, Immature Gran % (Auto) 1.000 H, Neut % (Auto) 87.4 H, Lymph % (Auto) 7.0 L, [place] % (Auto) 4.5, Eos % (Auto) 0.0, Baso % (Auto) 0.1, Absolute Neuts (auto) 8.1 H, Absolute Lymphs (auto) 0.65 L, Nucleated RBC % 0 12/07/22 05:26: Sodium 133 L, Potassium 4.0, Chloride 99, Carbon Dioxide 27.0, Anion Gap 7, BUN 54 H, Creatinine 1.68 H, Estim Creat Clear Calc 41.64, Est GFR (MDRD) Af Amer 52 L, Est GFR (MDRD) Non-Af 43 L, BUN/Creatinine Ratio 32.1 H, Glucose 180 H, Calcium 8.2 L Micro: Microbiology 12/03/22 10:45 Urine, Random Legionella Antigen - Final 12/03/22 10:45 Urine, Random Streptococcus pneumoniae Antigen (M - Final Physical Exam Narrative GENERAL: cooperative HEENT: Atraumatic; normocephalic EYES; Anicteric, Normal Conjunctiva NECK; supple, normal thyroid, RESPIRATORY: Diminished to auscultation CARDIOVASCULAR: Regular S1 S2, GI: soft, normoactive bowel sounds, : No Renal angle tenderness; EXTREMITIES: No edema, no clubbing, MUSCULOSKELETAL: no muscle wasting NEURO: Awake; no lateralizing signs. SKIN: No Rash PSYCH; Flat affect Assessment & Plan Assessment/Plan (1) Acute respiratory failure with hypoxia: PLAN: Plan Patient is a 72-year-old gentleman with history of kidney and liver transplant admitted with progressive shortness of breath diagnosed with COVID-19 with hypoxic respiratory failure 1. Acute hypoxic respiratory failure ? Secondary to COVID-19 pneumonia. Patient management noninvasive ventilation BiPAP and subsequently transition to Airvo. Patient was placed on dexamethasone. Plan is for patient to remain in quarantine until 12/15/2022 ? 12/06/2022. Patient was weaned off Airvo the day prior was placed on nasal cannula 5 L flow per minute however had to be placed back on Airvo during the night after he desaturated. ? 12/07/2022; patient has been weaned down to 5 L flow per minute. 2. History of liver and renal transplant ? Patient is on immunosuppressant agent with mycophenolate and tacrolimus 3. Class III obesity with BMI of 43.1 ? Weight loss advised 4. Chronic kidney disease stage IIIa ? Patient kidney function did improve following the renal transplant. 5. Nonalcoholic fatty liver disease with cirrhosis of the liver this was a reason for patient liver transplant 6. Anemia - Secondary to chronic disorder monitoring H&H and transfuse if patient becomes symptomatic or hemoglobin falls below 7 7. History of renal artery stenosis ? Status post renal artery stent placement patient is on dual antiplatelet therapy in addition to statin therapy 8. Dyslipidemia -Patient is on statin therapy, continued at home dose 9. Gout ? Patient is on allopurinol did continue 10. Sleep apnea ? Patient is on BiPAP at night 11. GERD ? Patient a PPI 12. Diabetes mellitus type II ? Patient presented with hyperglycemia due to concomitant use of steroid started on long-acting insulin in addition to Accu-Cheks before meals and at bedtime with sliding scale coverage ? 12/06/2022. Adjusted patient insulin regimen with addition of long-acting insulin and scheduled short acting insulin pre-meal 13. DVT prophylaxis ? Low molecular weight heparin Time spent in the patient's overall evaluation,decision-making process, review of diagnostic data, adjustment of management, discussion with other providers, nursing nursing and ancillary staff involved in patient's care documentation, 40 Minutes Charges/Coding Visit Charges Inpatient E&M: 24976 [facility] L2
--- NOTE | 2022-12-07 09:03 | CPS ---
pt is refusing the vest
[2022-12-07] MEDS: Insulin Glargine-YFGN 100 UNIT/ML Pen 20 UNIT SC ×2 (09:58→17:28)
[2022-12-07] MEDS: Insulin Lispro 100 UNIT/ML INSULN.PEN 10 UNIT SC ×3 (09:59→17:28)
[2022-12-07] MEDS: Insulin Lispro 100 UNIT/ML INSULN.PEN SC ×4 (10:00→23:51)
[2022-12-07] MEDS: Enoxaparin 40 MG/0.4 ML Syringe SC (10:00)
[2022-12-07] MEDS: Carvedilol 25 MG Tablet 50 MG PO ×2 (10:02→23:21)
[2022-12-07] MEDS: Smz/Tmp Ds Tablet 0.5 TABLET PO (10:02)
[2022-12-07] MEDS: dexAMETHasone 4 MG Tablet 6 MG PO (10:02)
[2022-12-07] MEDS: Allopurinol 300 MG Tablet PO (10:03)
[2022-12-07] MEDS: Mycophenolate Mofetil 250 MG Capsule 500 MG PO ×2 (10:03→23:21)
[2022-12-07] MEDS: Doxazosin 4 MG Tablet 8 MG PO (10:04)
[2022-12-07] MEDS: Aspirin E.C. 81 MG Tablet PO (10:04)
[2022-12-07] MEDS: Tolterodine Tartrate 2 MG CAP.SA PO (10:04)
[2022-12-07] MEDS: Clopidogrel Bisulfate 75 MG Tablet PO (10:04)
[2022-12-07] MEDS: Pantoprazole Sodium 40 MG Tablet PO (10:04)
[2022-12-07] MEDS: Tacrolimus Anhydrous 1 MG Capsule PO ×2 (10:04→23:22)
[2022-12-07 10:46] LABS: Bedside Glucose 191 mg/dL (74-106)
[2022-12-07] MEDS: NIFEdipine 90 MG Tablet PO (11:56)
--- NOTE | 2022-12-07 11:57 | CASEMGMT ---
SW spoke with patient's . SW introduced self and role at [facility]. Patient's confirmed she would like patient to go to a halfway facility at discharge. Her choices were [facility], [facility], and [facility]. DENISA will work on referrals. Bozena Rader MSW ADRIAN
--- NOTE | 2022-12-07 11:59 | CASEMGMT ---
SW sent referrals to [facility], [facility], and [facility] to review. Denisse Whitney LIFE SKILLS SPECIALIST, TECHNICAL RESEARCH SCIENTIST
[2022-12-07 12:25] LABS: Bedside Glucose 186 mg/dL (74-106)
[2022-12-07] MEDS: Senna/Docusate Sodium 1 Tablet 2 TABLET PO (13:38)
[2022-12-07] MEDS: Acetaminophen 500 MG Tablet 1000 MG PO ×2 (13:55→23:21)
--- NOTE | 2022-12-07 13:56 | CASEMGMT ---
DENISA received responses from [facility], [facility], and [facility]. [facility] accepted. [facility] asked patient's weight and about airvo, [facility] would like to know when patient is medically more stable. Bozena CAMPBELL
--- NOTE | 2022-12-07 22:14 | CPS ---
Pt on 5 LPM nasal cannula
[2022-12-07] MEDS: Atorvastatin Calcium 40 MG Tablet PO (23:22)
[2022-12-07] MEDS: Montelukast 10 MG Tablet PO (23:22)
[2022-12-07] MEDS: Menthol/Lanolin/Calamine/Znox 113 GM Tube 1 APPLIC TOPICAL (23:22)
[2022-12-07] MEDS: Nystatin Powder 15gm Bottle 1 APPLIC TOPICAL (23:23)
[2022-12-07] MEDS: oxyCODONE 5 MG Tablet PO (23:41)
[2022-12-08] VITALS (8 sets, daily range): BP systolic 136–168; BP diastolic 78–94; PULSE 62–88; RESP 17–20; TEMP 36.6–36.7; O2SAT 93–97
[2022-12-08 00:16] LABS: Bedside Glucose 231 mg/dL (74-106)
[2022-12-08 00:16] LABS: Bedside Glucose 188 mg/dL (74-106)
[2022-12-08 07:31] LABS: Absolute Lymphocyte Count 0.88 X10^3/uL (0.83-4.51); Basophil# 0.01 X10^3/uL; Basophil% 0.1 % (0-1); Hematocrit 32.1 % (40-54); Hemoglobin 11.2 g/dL (13.0-16.5); Lymphocyte # 0.88 X10^3/ul (0.83-4.51); Lymphocyte % 10.3 % (19-41); Mean Corp Hgb Conc 34.9 g/dL (32-36); Mean Corpuscular Hgb 29.2 pg (27.0-32.0); Mean Corpuscular Volume 83.8 fL (80-94); Mean Platelet Vol. 11.3 fl (6.2-12.0); Monocyte# 0.59 X10^3/uL; Monocyte% 6.9 % (0-10); NRBC Flagged by Analyzer 0 % (0-5); Neutrophil # 6.99 X10^3/uL (2.7-7.7); Neutrophil % 81.5 % (47-70); Platelet Count 144 K/mm3 (150-450); RBC Distribution Width CV 12.8 % (11.6-14.6); RBC Distribution Width SD 38.5 fl (35.1-43.9); Red Blood Count 3.83 M/mm3 (4.6-6.2); White Blood Count 8.6 K/mm3 (4.4-11.0)
[2022-12-08 07:56] LABS: Anion Gap 7 (5-15); BUN 53 mg/dL (7-18); BUN/Creat Ratio 36.8 RATIO (10-20); Calcium,Total 8.6 mg/dL (8.5-10.1); Chloride 101 mmol/L (98-107); Creatinine, Serum 1.44 mg/dL (0.70-1.30); EST Glomerular Filtration Rate 51 mL/min (>60); Est Glom Filt Rate - Afr Amer 62 mL/min (>60); Estimated Creatinine Clearance 48.58 ml/min; Glucose 178 mg/dL (74-106); Potassium 4.1 mmol/L (3.5-5.1); Sodium Level 137 mmol/L (136-145)
[2022-12-08] MEDS: Insulin Lispro 100 UNIT/ML INSULN.PEN 10 UNIT SC ×3 (08:01→16:56)
[2022-12-08] MEDS: Insulin Lispro 100 UNIT/ML INSULN.PEN SC ×2 (08:01→12:04)
[2022-12-08] MEDS: Insulin Glargine-YFGN 100 UNIT/ML Pen 20 UNIT SC ×2 (08:06→16:55)
[2022-12-08 08:30] LABS: Bedside Glucose 154 mg/dL (74-106)
--- NOTE | 2022-12-08 10:21 | PCM.PN.HOSP ---
Reason for Visit Reason for Visit: Diagnoses Hypokalemia (12/03/22) Acute respiratory failure with hypoxia (12/03/22) Ileus, unspecified (12/03/22) Other malaise (12/03/22) COVID-19 (12/03/22) Kidney transplant status (12/03/22) Liver transplant status (12/03/22) Subjective Subjective Patient seen much more interactive compared to all previous days. He however still remains on high flow oxygen currently at 70 L flow per minute. Plan is to try and wean down his oxygen requirement. Also did encourage patient to try and sit in the chair as long as possible Objective Data Objective Data Vital Signs: Vital Signs Temp Pulse Resp BP Pulse Ox O2 Del Method O2 Flow Rate 97.8 F 79 18 136/94 H 94 Bi-pap 7 12/08/22 06:00 12/08/22 06:00 12/08/22 06:00 12/08/22 06:00 12/08/22 06:00 12/08/22 06:00 12/08/22 06:00 FiO2 75 12/07/22 17:07 Oxygen Flow Rate (L/min) 7 Oxygen Delivery Method Bi-pap Weight: 136.35 kg Body Mass Index (BMI) 43.1 Intake & Output: Intake and Output for Last 24 Hours 12/06/22 12/07/22 12/08/22 23:59 23:59 23:59 Intake Total 150 / 150 1150 / 1150 200 / 200 Output Total 600 / 900 2150 / 2650 1300 / 1300 Balance -450 / -750 -1000 / -1500 -1100 / -1100 Lab / Micro Data Result Diagrams: 12/08/22 05:37 12/08/22 05:37 Labs: Laboratory Results - last 24 hr 12/07/22 09:49: POC Glucose 191 H 12/07/22 11:58: POC Glucose 186 H 12/07/22 17:13: POC Glucose 188 H 12/07/22 23:48: POC Glucose 231 H 12/08/22 05:37: WBC 8.6, RBC 3.83 L, Hgb 11.2 L, Hct 32.1 L, MCV 83.8, MCH 29.2, MCHC 34.9, RDW Std Deviation 38.5, RDW Coeff of Leonie 12.8, Plt Count 144 L, MPV 11.3, Immature Gran % (Auto) 1.200 H, Neut % (Auto) 81.5 H, Lymph % (Auto) 10.3 L, [place] % (Auto) 6.9, Eos % (Auto) 0.0, Baso % (Auto) 0.1, Absolute Neuts (auto) 7.0, Absolute Lymphs (auto) 0.88, Nucleated RBC % 0 12/08/22 05:37: Sodium 137, Potassium 4.1, Chloride 101, Carbon Dioxide 29.0, Anion Gap 7, BUN 53 H, Creatinine 1.44 H, Estim Creat Clear Calc 48.58, Est GFR (MDRD) Af Amer 62, Est GFR (MDRD) Non-Af 51 L, BUN/Creatinine Ratio 36.8 H, Glucose 178 H, Calcium 8.6 12/08/22 07:57: POC Glucose 154 H Micro: Microbiology 12/03/22 10:45 Urine, Random Legionella Antigen - Final 12/03/22 10:45 Urine, Random Streptococcus pneumoniae Antigen (M - Final Physical Exam Narrative GENERAL: cooperative HEENT: Atraumatic; normocephalic EYES; Anicteric, Normal Conjunctiva NECK; supple, normal thyroid, RESPIRATORY: Diminished to auscultation CARDIOVASCULAR: Regular S1 S2, GI: soft, normoactive bowel sounds, : No Renal angle tenderness; EXTREMITIES: No edema, no clubbing, MUSCULOSKELETAL: no muscle wasting NEURO: Awake; no lateralizing signs. SKIN: No Rash PSYCH; Flat affect Assessment & Plan Assessment/Plan (1) Acute respiratory failure with hypoxia: PLAN: Plan Patient is a 72-year-old gentleman with history of kidney and liver transplant admitted with progressive shortness of breath diagnosed with COVID-19 with hypoxic respiratory failure 1. Acute hypoxic respiratory failure ? Secondary to COVID-19 pneumonia. Patient management noninvasive ventilation BiPAP and subsequently transition to Airvo. Patient was placed on dexamethasone. Plan is for patient to remain in quarantine until 12/15/2022 ? 12/06/2022. Patient was weaned off Airvo the day prior was placed on nasal cannula 5 L flow per minute however had to be placed back on Airvo during the night after he desaturated. ? 12/07/2022; patient has been weaned down to 5 L flow per minute. ? 12/08/2022 still requiring significant amount of oxygen to maintain adequate saturation 2. History of liver and renal transplant ? Patient is on immunosuppressant agent with mycophenolate and tacrolimus 3. Class III obesity with BMI of 43.1 ? Weight loss advised 4. Chronic kidney disease stage IIIa ? Patient kidney function did improve following the renal transplant. 5. Nonalcoholic fatty liver disease with cirrhosis of the liver this was a reason for patient liver transplant 6. Anemia - Secondary to chronic disorder monitoring H&H and transfuse if patient becomes symptomatic or hemoglobin falls below 7 7. History of renal artery stenosis ? Status post renal artery stent placement patient is on dual antiplatelet therapy in addition to statin therapy 8. Dyslipidemia -Patient is on statin therapy, continued at home dose 9. Gout ? Patient is on allopurinol did continue 10. Sleep apnea ? Patient is on BiPAP at night 11. GERD ? Patient a PPI 12. Diabetes mellitus type II ? Patient presented with hyperglycemia due to concomitant use of steroid started on long-acting insulin in addition to Accu-Cheks before meals and at bedtime with sliding scale coverage ? 12/06/2022. Adjusted patient insulin regimen with addition of long-acting insulin and scheduled short acting insulin pre-meal 13. DVT prophylaxis ? Low molecular weight heparin Time spent in the patient's overall evaluation,decision-making process, review of diagnostic data, adjustment of management, discussion with other providers, nursing nursing and ancillary staff involved in patient's care documentation, 35 Minutes Charges/Coding Visit Charges Inpatient E&M: 12629 [facility]s [facility]osp L2
[2022-12-08] MEDS: Doxazosin 4 MG Tablet 8 MG PO (11:01)
[2022-12-08] MEDS: Tolterodine Tartrate 2 MG CAP.SA PO (11:01)
[2022-12-08] MEDS: Carvedilol 25 MG Tablet 50 MG PO ×2 (11:01→21:54)
[2022-12-08] MEDS: Allopurinol 300 MG Tablet PO (11:02)
[2022-12-08] MEDS: Tacrolimus Anhydrous 1 MG Capsule PO ×2 (11:02→21:55)
[2022-12-08] MEDS: Aspirin E.C. 81 MG Tablet PO (11:02)
[2022-12-08] MEDS: Clopidogrel Bisulfate 75 MG Tablet PO (11:02)
[2022-12-08] MEDS: NIFEdipine 90 MG Tablet PO (11:02)
[2022-12-08] MEDS: Pantoprazole Sodium 40 MG Tablet PO (11:02)
[2022-12-08] MEDS: Menthol/Lanolin/Calamine/Znox 113 GM Tube 1 APPLIC TOPICAL ×2 (11:03→21:51)
[2022-12-08] MEDS: Enoxaparin 40 MG/0.4 ML Syringe SC (11:03)
[2022-12-08] MEDS: Nystatin Powder 15gm Bottle 1 APPLIC TOPICAL ×2 (11:04→21:56)
[2022-12-08] MEDS: Albuterol 2.5 MG/3 ML VIAL.NEB. INHALATION (11:18)
--- NOTE | 2022-12-08 11:31 | CASEMGMT ---
DENISA called patient's and let her know [facility] can take patient as well as [facility]. [facility] was willing to look at patient when he is closer to being medically ready. Patient's thanked DENISA for the update. Plan: [facility] Bozena CAMPBELL
[2022-12-08] MEDS: Mycophenolate Mofetil 250 MG Capsule 500 MG PO ×2 (12:04→21:55)
[2022-12-08 12:30] LABS: Bedside Glucose 176 mg/dL (74-106)
[2022-12-08] MEDS: Acetaminophen 500 MG Tablet 1000 MG PO ×2 (17:00→23:33)
[2022-12-08] MEDS: oxyCODONE 5 MG Tablet PO ×2 (17:00→21:51)
[2022-12-08 17:35] LABS: Bedside Glucose 135 mg/dL (74-106)
[2022-12-08] MEDS: Atorvastatin Calcium 40 MG Tablet PO (21:54)
[2022-12-08] MEDS: Montelukast 10 MG Tablet PO (21:54)
[2022-12-08 22:41] LABS: Bedside Glucose 139 mg/dL (74-106)
[2022-12-09] MEDS: oxyCODONE 5 MG Tablet PO ×2 (02:12→11:11)
[2022-12-09 02:13] VITALS: BP 144/76; PULSE 60; RESP 20; TEMP 36.6; O2SAT 94
--- NOTE | 2022-12-09 07:54 | PCM.PN.HOSP ---
Reason for Visit Reason for Visit: Diagnoses Hypokalemia (12/03/22) Acute respiratory failure with hypoxia (12/03/22) Ileus, unspecified (12/03/22) Other malaise (12/03/22) COVID-19 (12/03/22) Kidney transplant status (12/03/22) Liver transplant status (12/03/22) Subjective Subjective Patient seen oxygen requirement continues to improve. Plan is for patient to be assessed for possible discharge to a custodial facility Objective Data Objective Data Vital Signs: Vital Signs Temp Pulse Resp BP Pulse Ox O2 Del Method O2 Flow Rate 98 F 60 20 H 144/76 H 94 Nasal Cannula 2 12/09/22 02:13 12/09/22 02:13 12/09/22 02:13 12/09/22 02:13 12/09/22 02:13 12/09/22 02:13 12/09/22 02:13 FiO2 75 12/07/22 17:07 Oxygen Flow Rate (L/min) 2 Oxygen Delivery Method Nasal Cannula Weight: 136.35 kg Body Mass Index (BMI) 43.1 Intake & Output: Intake and Output for Last 24 Hours 12/07/22 12/08/22 12/09/22 23:59 23:59 23:59 Intake Total 1150 / 1150 750 / 1350 890 / 890 Output Total 2150 / 2650 2100 / 2100 1100 / 1100 Balance -1000 / -1500 -1350 / -750 -210 / -210 Lab / Micro Data Result Diagrams: 12/08/22 05:37 12/08/22 05:37 Labs: Laboratory Results - last 24 hr 12/08/22 05:37: Sodium 137, Potassium 4.1, Chloride 101, Carbon Dioxide 29.0, Anion Gap 7, BUN 53 H, Creatinine 1.44 H, Estim Creat Clear Calc 48.58, Est GFR (MDRD) Af Amer 62, Est GFR (MDRD) Non-Af 51 L, BUN/Creatinine Ratio 36.8 H, Glucose 178 H, Calcium 8.6 12/08/22 07:57: POC Glucose 154 H 12/08/22 12:02: POC Glucose 176 H 12/08/22 16:54: POC Glucose 135 H 12/08/22 21:49: POC Glucose 139 H Micro: Microbiology 12/03/22 10:45 Urine, Random Legionella Antigen - Final 12/03/22 10:45 Urine, Random Streptococcus pneumoniae Antigen (M - Final Physical Exam Narrative GENERAL: cooperative HEENT: Atraumatic; normocephalic EYES; Anicteric, Normal Conjunctiva NECK; supple, normal thyroid, RESPIRATORY: Diminished to auscultation CARDIOVASCULAR: Regular S1 S2, GI: soft, normoactive bowel sounds, : No Renal angle tenderness; EXTREMITIES: No edema, no clubbing, MUSCULOSKELETAL: no muscle wasting NEURO: Awake; no lateralizing signs. SKIN: No Rash PSYCH; Flat affect Assessment & Plan Assessment/Plan (1) Acute respiratory failure with hypoxia: PLAN: Plan Patient is a 72-year-old gentleman with history of kidney and liver transplant admitted with progressive shortness of breath diagnosed with COVID-19 with hypoxic respiratory failure 1. Acute hypoxic respiratory failure ? Secondary to COVID-19 pneumonia. Patient management noninvasive ventilation BiPAP and subsequently transition to Airvo. Patient was placed on dexamethasone. Plan is for patient to remain in quarantine until 12/15/2022 ? 12/06/2022. Patient was weaned off Airvo the day prior was placed on nasal cannula 5 L flow per minute however had to be placed back on Airvo during the night after he desaturated. ? 12/07/2022; patient has been weaned down to 5 L flow per minute. ? 12/08/2022 still requiring significant amount of oxygen to maintain adequate saturation 2. History of liver and renal transplant ? Patient is on immunosuppressant agent with mycophenolate and tacrolimus 3. Class III obesity with BMI of 43.1 ? Weight loss advised 4. Chronic kidney disease stage IIIa ? Patient kidney function did improve following the renal transplant. 5. Nonalcoholic fatty liver disease with cirrhosis of the liver this was a reason for patient liver transplant 6. Anemia - Secondary to chronic disorder monitoring H&H and transfuse if patient becomes symptomatic or hemoglobin falls below 7 7. History of renal artery stenosis ? Status post renal artery stent placement patient is on dual antiplatelet therapy in addition to statin therapy 8. Dyslipidemia -Patient is on statin therapy, continued at home dose 9. Gout ? Patient is on allopurinol did continue 10. Sleep apnea ? Patient is on BiPAP at night 11. GERD ? Patient a PPI 12. Diabetes mellitus type II ? Patient presented with hyperglycemia due to concomitant use of steroid started on long-acting insulin in addition to Accu-Cheks before meals and at bedtime with sliding scale coverage ? 12/06/2022. Adjusted patient insulin regimen with addition of long-acting insulin and scheduled short acting insulin pre-meal 13. DVT prophylaxis ? Low molecular weight heparin 14. Physical deconditioning - Requested for PT OT eval and social sciences professor to assist with discharge planning Time spent in the patient's overall evaluation,decision-making process, review of diagnostic data, adjustment of management, discussion with other providers, nursing nursing and ancillary staff involved in patient's care documentation, 35 Minutes Charges/Coding Visit Charges Inpatient E&M: 24989 Subs Hosp L2
--- NOTE | 2022-12-09 07:55 | CASEMGMT ---
DENISA sent updates to all 3 facilities. DENISA will check with patient's this am to see her first choice for SNF. Bozena CAMPBELL
[2022-12-09 08:00] VITALS: O2SAT 92
[2022-12-09 08:25] LABS: Bedside Glucose 90 mg/dL (74-106)
[2022-12-09 08:46] VITALS: BP 147/83; PULSE 57; RESP 18; TEMP 36.6; O2SAT 95
[2022-12-09] MEDS: Smz/Tmp Ds Tablet 0.5 TABLET PO (08:49)
[2022-12-09] MEDS: Insulin Glargine-YFGN 100 UNIT/ML Pen 20 UNIT SC (08:50)
[2022-12-09] MEDS: Insulin Lispro 100 UNIT/ML INSULN.PEN 10 UNIT SC ×2 (08:51→12:35)
[2022-12-09 09:16] VITALS: O2SAT 94
[2022-12-09 09:44] VITALS: PULSE 60; O2SAT 95
[2022-12-09] MEDS: Enoxaparin 40 MG/0.4 ML Syringe SC (09:47)
[2022-12-09] MEDS: Allopurinol 300 MG Tablet PO (09:47)
[2022-12-09] MEDS: Doxazosin 4 MG Tablet 8 MG PO (09:48)
[2022-12-09] MEDS: NIFEdipine 90 MG Tablet PO (09:48)
[2022-12-09] MEDS: Pantoprazole Sodium 40 MG Tablet PO (09:48)
[2022-12-09] MEDS: Clopidogrel Bisulfate 75 MG Tablet PO (09:48)
[2022-12-09] MEDS: Aspirin E.C. 81 MG Tablet PO (09:48)
[2022-12-09] MEDS: Carvedilol 25 MG Tablet 50 MG PO (09:48)
[2022-12-09] MEDS: Tolterodine Tartrate 2 MG CAP.SA PO (09:48)
[2022-12-09] MEDS: Mycophenolate Mofetil 250 MG Capsule 500 MG PO (09:49)
[2022-12-09] MEDS: Tacrolimus Anhydrous 1 MG Capsule PO (09:49)
[2022-12-09] MEDS: 0.9% Saline Lock 10 ML Syringe IV (09:50)
[2022-12-09] MEDS: Nystatin Powder 15gm Bottle 1 APPLIC TOPICAL (09:52)
[2022-12-09] MEDS: Menthol/Lanolin/Calamine/Znox 113 GM Tube 1 APPLIC TOPICAL (09:52)
--- NOTE | 2022-12-09 09:53 | CASEMGMT ---
DENISA called patient's Serina. DENISA let Serina know that patient is doing much better and may be ready today vs tomorrow. DENISA asked Serina if she would like [facility] or [facility] or wait on [facility]. Serina picked [facility]. DENISA told her SW will let her know if patient will be discharged today. SW notified [facility] that family has chosen them as their first choice. SW also notified [facility] and [facility] that family chose another facility. Plan: Josiah CAMPBELL
--- NOTE | 2022-12-09 10:06 | DS.PCM_ITS ---
Providers Date of Admission: 12/03/22 Date of Discharge: 12/09/22 Primary Care Physician: Dr. Shanelle Luz, DO Reason For Visit: RESP FAILURE Diagnosis Discharge Diagnosis (1) Acute respiratory failure with hypoxia: Status: Acute Code(s): J96.01 - Acute respiratory failure with hypoxia Plan Patient is a 72-year-old gentleman with history of kidney and liver transplant admitted with progressive shortness of breath diagnosed with COVID-19 with hypoxic respiratory failure 1. Acute hypoxic respiratory failure ? Secondary to COVID-19 pneumonia. Patient management noninvasive ventilation BiPAP and subsequently transition to Airvo. Patient was placed on dexamethasone. ? 12/06/2022. Patient was weaned off Airvo the day prior was placed on nasal cannula 5 L flow per minute however had to be placed back on Airvo during the night after he desaturated. ? 12/07/2022; patient has been weaned down to 5 L flow per minute. ? 12/08/2022 still requiring significant amount of oxygen to maintain adequate saturation 2. History of liver and renal transplant ? Patient is on immunosuppressant agent with mycophenolate and tacrolimus 3. Class III obesity with BMI of 43.1 ? Weight loss advised 4. Chronic kidney disease stage IIIa ? Patient kidney function did improve following the renal transplant. 5. Nonalcoholic fatty liver disease with cirrhosis of the liver this was a reason for patient liver transplant 6. Anemia - Secondary to chronic disorder monitoring H&H and transfuse if patient becomes symptomatic or hemoglobin falls below 7 7. History of renal artery stenosis ? Status post renal artery stent placement patient is on dual antiplatelet therapy in addition to statin therapy 8. Dyslipidemia -Patient is on statin therapy, continued at home dose 9. Gout ? Patient is on allopurinol did continue 10. Sleep apnea ? Patient is on BiPAP at night 11. GERD ? Patient a PPI 12. Diabetes mellitus type II ? Patient presented with hyperglycemia due to concomitant use of steroid started on long-acting insulin in addition to Accu-Cheks before meals and at bedtime with sliding scale coverage ? 12/06/2022. Adjusted patient insulin regimen with addition of long-acting insulin and scheduled short acting insulin pre-meal 13. DVT prophylaxis ? Low molecular weight heparin 14. Physical deconditioning - Requested for PT OT eval and social services manager to assist with discharge planning Time spent in the patient's overall evaluation,decision-making process, review of diagnostic data, adjustment of management, discussion with other providers, nursing nursing and ancillary staff involved in patient's care documentation, 35 Minutes Medications at Discharge Home Medications pantoprazole 40 mg tablet,delayed release (Protonix) 40 mg PO DAILY gerd 12/20/19 oxybutynin chloride 10 mg tablet,extended release 24 hr 10 mg PO DAILY bladder 03/29/20 aspirin 81 mg tablet,delayed release (Adult Low Dose Aspirin) 81 mg PO DAILY HEART HEALTH 04/15/20 tacrolimus 1 mg capsule,extended release 24 hr 1 mg PO BID liver transplant 04/15/20 zafirlukast 20 mg tablet (Accolate) 20 mg PO Q12H BREATHING 04/15/20 sulfamethoxazole 400 mg-trimethoprim 80 mg tablet 2 tab PO MOWEFR preventative atb 07/17/20 atorvastatin 40 mg tablet 40 mg PO QHS CHOLESTEROL #90 tabs 01/26/22 doxazosin 8 mg tablet 8 mg PO QAM bp #90 tabs 10/06/22 nifedipine 90 mg tablet,extended release 24 hr (Procardia XL) 90 mg PO DAILY HEART #90 tabs 10/10/22 allopurinol 300 mg tablet 300 mg PO DAILY GOUT 11/02/22 clopidogrel 75 mg tablet 75 mg PO DAILY BLOOD THINNER 11/02/22 mycophenolate mofetil 250 mg capsule 500 mg PO BID Antirejection 11/02/22 nystatin 100,000 unit/gram topical powder (Nystop) 1 applic topical BID Skin 11/02/22 carvedilol 25 mg tablet (Coreg) 50 mg PO BID BP 11/07/22 acetaminophen 500 mg tablet 1,000 mg PO Q6H PRN PRN Pain Score 1-5 #0 tabs 11/16/22 dexamethasone 4 mg tablet 6 mg PO DAILYCM #8 tabs 11/29/22 glyburide 5 mg tablet 5 mg PO DAILY #8 tabs 11/29/22 albuterol sulfate 2.5 mg/3 mL (0.083 %) solution for nebulization 2.5 mg (3 mL) inhalation Q2H PRN PRN SOB/Wheezing #0 mL 12/09/22 insulin glargine-yfgn 100 unit/mL (3 mL) subcutaneous pen 20 unit (0.2 mL) subcut BIDAC #0 mL 12/09/22 insulin lispro 100 unit/mL subcutaneous pen (Humalog KwikPen (U-100) Insulin) See Protocol subcut ACHS #0 mL 12/09/22 menthol 0.44 %-zinc oxide 20.6 % topical ointment (Calmoseptine) 1 applic topical BID #0 grams 12/09/22 oxycodone 5 mg tablet 5 mg PO TID PRN pain 3 days #12 tabs 12/09/22 sennosides 8.6 mg-docusate sodium 50 mg tablet (Stool Softener-Stimulant Laxative) 2 tab PO DAILY PRN PRN CONSTIPATION #0 tabs 12/09/22 Hospital Course Summary of Care Provided Minutes Spent on Discharge: 35 Physical Exam Narrative GENERAL: cooperative HEENT: Atraumatic; normocephalic EYES; Anicteric, Normal Conjunctiva NECK; supple, normal thyroid, RESPIRATORY: Diminished to auscultation CARDIOVASCULAR: Regular S1 S2, GI: soft, normoactive bowel sounds, : No Renal angle tenderness; EXTREMITIES: No edema, no clubbing, MUSCULOSKELETAL: no muscle wasting NEURO: Awake; no lateralizing signs. SKIN: No Rash PSYCH; Flat affect Weight / BMI Weight Weight: 136.35 kg Body Mass Index (BMI) 43.1 ABG / Lab / Microbiology Data Result Diagrams: 12/08/22 05:37 12/08/22 05:37 Laboratory: Laboratory Results - last 24 hr 12/08/22 12:02: POC Glucose 176 H 12/08/22 16:54: POC Glucose 135 H 12/08/22 21:49: POC Glucose 139 H 12/09/22 08:05: POC Glucose 90 Microbiology: Microbiology 12/03/22 10:45 Urine, Random Legionella Antigen - Final 12/03/22 10:45 Urine, Random Streptococcus pneumoniae Antigen (M - Final D/C Instructions Discharge Diet: 1800 Calorie Control Diet Discharge Activity: Return to Normal Activity Call your doctor if you observe: Fever of 101 or Higher, Shortness of breath, Fainting spells and Chest pain Meaningful Use Info Meaningful Use Diagnoses (Choose all that apply): None applicable Discharge Plan Admission Admit Date/Time: 12/03/22 11:10 Attending Provider: Dallin Erickson Primary Care Provider: Shanelle Luz Consulting Providers: Robert Ortega Discharge Orders/Prescriptions Prescriptions: New albuterol sulfate 2.5 mg /3 mL (0.083 %) Solution For Nebulization 2.5 mg inhalation Q2H PRN PRN (Reason: SOB/Wheezing) Qty: 0 0RF insulin glargine-yfgn 100 unit/mL (3 mL) Insulin Pen 20 unit subcut BIDAC Qty: 0 0RF insulin lispro [Humalog KwikPen Insulin] 100 unit/mL Insulin Pen See Protocol subcut ACHS Qty: 0 0RF Protocol: 4. Sliding Scale Insulin High-Med Dosing Condition: 150-199 mg/dl = 2 units Condition: 200-259 mg/dl = 4 units Condition: 260-324 mg/dl = 6 units Condition: 325-374 mg/dl = 8 units Condition: 375-409 mg/dl = 10 units Condition: 410-449 mg/dl = 11 units Condition: Greater than 449 call physician Protocol Text: - Use for Total Daily Dose of Insulin 56-80 units - Patient who are insulin resistant or septic HIGH MEDIUM DOSING ALGORITHM menthol-zinc oxide [Calmoseptine] 0.44-20.6 % Ointment 1 applic topical BID Qty: 0 0RF Protocol: *Topical Application Instructions APPLICATION INSTRUCTIONS: COCCYX sennosides-docusate sodium [Stool Softener-Stimulant Laxat] 8.6-50 mg Tablet 2 tab PO DAILY PRN PRN (Reason: CONSTIPATION) Qty: 0 0RF Continued pantoprazole [Protonix] 40 mg tablet,delayed release (DR/EC) 40 mg PO DAILY aspirin [Adult Low Dose Aspirin] 81 mg tablet,delayed release (DR/EC) 81 mg PO DAILY zafirlukast [Accolate] 20 mg tablet 20 mg PO Q12H Rx Instructions: administer 1 hour before or 2 hours after food or meals tacrolimus 1 mg capsule,extended release 24hr 1 mg PO BID Label Comments: REJECTION MED oxybutynin chloride 10 MG tablet extended release 24hr 10 mg PO DAILY sulfamethoxazole-trimethoprim 400-80 mg tablet 2 tab PO MOWE Rx Instructions: take one tablet po every monday, monday, monday mycophenolate mofetil 250 mg capsule 500 mg PO BID Label Comments: take 2 capsules by mouth twice a day clopidogrel 75 mg tablet 75 mg PO DAILY allopurinol 300 mg tablet 300 mg PO DAILY nystatin [Nystop] 100,000 unit/gram Powder 1 applic TOPICAL BID carvedilol [Coreg] 25 mg tablet 50 mg PO BID Rx Instructions: must administer with a meal/food acetaminophen 500 mg Tablet 1,000 mg PO Q6H PRN PRN (Reason: Pain Score 1-5) Qty: 0 0RF dexamethasone 4 mg Tablet 6 mg PO DAILYCM Qty: 8 0RF glyburide 5 mg tablet 5 mg PO DAILY Qty: 8 0RF Rx Instructions: while on dexamethasone oxycodone 5 mg Tablet 5 mg PO TID PRN (Reason: pain) 3 Days Qty: 12 0RF atorvastatin 40 mg tablet 40 mg PO QHS Qty: 90 3RF doxazosin 8 mg tablet 8 mg PO QAM Qty: 90 3RF nifedipine [Procardia XL] 90 mg tablet extended release 24hr 90 mg PO DAILY Qty: 90 3RF Referrals / Follow Up: Shanelle Luz DO [Primary Care Provider] - Disposition Disposition (needs filled in before D/C Order can be placed): Longterm Facility Charges/Coding Visit Charges Inpatient E&M: 68108 Disch Hosp >30min
--- NOTE | 2022-12-09 10:15 | CASEMGMT ---
[facility] Bozena Rader SUPERVISOR DOG LICENSE OFFICER TECHNICAL SUPPORT 1 SOFTWARE ENGINEER
[2022-12-09] MEDS: Acetaminophen 500 MG Tablet 1000 MG PO (11:11)
--- NOTE | 2022-12-09 11:27 | CASEMGMT ---
DENISA called [facility] and arranged for patient to get picked up at 1p via wheelchair van. DENISA notified RN, patient's , patient, [facility], and laboratory secretary. DENISA completed a 7000 [facility] Plan: d/c to [facility] at [facility] under skilled level of care. [facility] transported patient via wheelchair van. Bozena CAMPBELL
[2022-12-09 12:10] LABS: Bedside Glucose 124 mg/dL (74-106)
[2022-12-09 12:39] VITALS: BP 142/97; PULSE 58; RESP 17; TEMP 36.7; O2SAT 96
== END 2022-12-09 13:34 | disposition skilled nursing facility (03) | DRG 177 ==
LOC: ED 09:24 → PCU 11:39
PROVIDERS: Emergency Medicine; Emergency Provider Student in an Organized Health Care Education/Training Program; PCP Internal Medicine; Visit Provider Internal Medicine
DX: U07.1 COVID-19 (principal); J96.01 Acute respiratory failure with hypoxia; J12.82 Pneumonia due to coronavirus disease 2019; K56.7 Ileus, unspecified; Z94.4 Liver transplant status; Z68.41 Body mass index [BMI] 40.0-44.9, adult; Z94.0 Kidney transplant status; D63.8 Anemia in other chronic diseases classified elsewhere; I70.1 Atherosclerosis of renal artery; K74.60 Unspecified cirrhosis of liver; N18.32 Chronic kidney disease, stage 3b; E11.65 Type 2 diabetes mellitus with hyperglycemia; E66.01 Morbid (severe) obesity due to excess calories; E87.8 Other disorders of electrolyte and fluid balance, not elsewhere classified; I25.10 Atherosclerotic heart disease of native coronary artery without angina pectoris; E87.6 Hypokalemia; I12.9 Hypertensive chronic kidney disease with stage 1 through stage 4 chronic kidney disease, or unspecified chronic kidney disease; K21.9 Gastro-esophageal reflux disease without esophagitis; G47.30 Sleep apnea, unspecified; E78.5 Hyperlipidemia, unspecified; M10.9 Gout, unspecified; K76.0 Fatty (change of) liver, not elsewhere classified; G47.33 Obstructive sleep apnea (adult) (pediatric); G89.4 Chronic pain syndrome; N13.9 Obstructive and reflux uropathy, unspecified; Z79.82 Long term (current) use of aspirin; Z79.02 Long term (current) use of antithrombotics/antiplatelets; Z79.52 Long term (current) use of systemic steroids; Z79.84 Long term (current) use of oral hypoglycemic drugs; Z86.73 Personal history of transient ischemic attack (TIA), and cerebral infarction without residual deficits
CPT/HCPCS: 36415; 36600; 71045; 71275; 74018; 80048; 80076; 81001; 82803; 82962; 83735; 83880; 84100; 84484; 85025; 85610; 85730; 87449; 93005; 94002; 94003; 94640; 94660; 94762; 97116; 97162; 97166; 97530; 97535; 97802; 99252; 99285; J7040; Q9967; A4216; G0463; J1940; J2405

== ENCOUNTER → 2024-05-01 | Outpatient (CLI) | payer MEDICARE, MEDICAID, SELFPAY ==
[2020-07-29 07:35] VITALS: BMI 46.7
[2024-05-01 12:35] LABS: Absolute Neutrophil Count 4.2 X10^3/uL (2.0-7.7); Basophil# 0.01 X10^3/uL; Basophil% 0.1 % (0-1); Eosinophil# 0.23 X10^3/uL; Eosinophils% 3.2 % (0-5); Hematocrit 36.9 % (40-54); Hemoglobin 12.1 g/dL (13.0-16.5); Lymphocyte % 30.6 % (19-41); Mean Corp Hgb Conc 32.8 g/dL (32-36); Mean Corpuscular Hgb 28.1 pg (27.0-32.0); Mean Corpuscular Volume 85.6 fL (80-94); Mean Platelet Vol. 10.8 fl (6.2-12.0); Monocyte# 0.51 X10^3/uL; Monocyte% 7.1 % (0-10); NRBC Flagged by Analyzer 0 % (0-5); Neutrophil # 4.21 X10^3/uL (2.7-7.7); Neutrophil % 58.7 % (47-70); Platelet Count 170 K/mm3 (150-450); RBC Distribution Width CV 13.8 % (11.6-14.6); RBC Distribution Width SD 42.7 fl (35.1-43.9); Red Blood Count 4.31 M/mm3 (4.6-6.2); White Blood Count 7.2 K/mm3 (4.4-11.0)
[2024-05-01 13:22] LABS: ALB/GLOB Ratio 1.2 RATIO (0.9-2.4); AST(SGOT) 13 U/L (15-37); Alanine Aminotransfer ALT/SGPT 15 U/L (16-61); Albumin, Serum 3.4 g/dL (3.2-5.0); Alkaline Phosphatase 100 U/L (45-117); Anion Gap 9 (5-15); BUN 24 mg/dL (7-18); BUN/Creat Ratio 16.7 RATIO (10-20); Calcium,Total 8.8 mg/dL (8.5-10.1); Chloride 114 mmol/L (98-107); Cholesterol 101 mg/dL (200); Creatinine, Serum 1.44 mg/dL (0.70-1.30); EST Glomerular Filtration Rate 51 mL/min (>60); Est Glom Filt Rate - Afr Amer 62 mL/min (>60); Globulin 2.9 g/dL (2.2-4.2); Glucose 126 mg/dL (74-106); High Density Lipoprotein 36 mg/dL; Potassium 3.7 mmol/L (3.5-5.1); Protein, Total 6.3 g/dL (6.4-8.2); Sodium Level 142 mmol/L (136-145); Triglycerides 72 mg/dL; Very Low Density Lipoprotein 14 mg/dL (5-40)
[2024-05-01 13:36] LABS: Microalbumin:Creatinine Ratio 165.7 mg/g CRE (<30 mg/g CRE)
[2024-05-01 16:15] LABS: Hemoglobin A1c 5.5 % (3.8-5.6)
== END | disposition home or self-care (01) ==
LOC: MTLAB 10:33
PROVIDERS: PCP Internal Medicine; Referring Provider Internal Medicine; Visit Provider Internal Medicine
DX: E11.9 Type 2 diabetes mellitus without complications (principal)
CPT/HCPCS: 36415; 80053; 80061; 82043; 82570; 83036; 84443; 85025

== ENCOUNTER 2024-10-14 19:33 | Inpatient (IN) | payer MEDICARE, SELFPAY ==
[2020-07-29 07:35] VITALS: BMI 46.7
[2024-10-14] VITALS (8 sets, daily range): BP systolic 159–227; BP diastolic 101–114; PULSE 51–59; RESP 16–22; TEMP 35.9–36.8; O2SAT 94–98; BMI 40.3
--- NOTE | 2024-10-14 20:14 | CT_ITS ---
PROCEDURE: BRAIN/HEAD WITHOUT CONTRAST REASON FOR EXAM: Increased confusion. TECHNIQUE: Multiple, axial CT images of the brain are obtained without intravenous contrast. Coronal and sagittal 2D reformatted images were provided for better evaluation. COMPARISON: CT brain from 11/26/2022. FINDINGS: There is prominence of the ventricles and sulci indicative of atrophy. Periventricular and deep white matter hypoattenuation likely relates to chronic small vessel ischemic disease. There is suggestion of a small remote lacunar infarct in the left cerebellum. No midline shift or mass effect is identified. There is mild prominence of the bifrontal extra-axial spaces on a chronic basis. No acute intracranial hemorrhage, mass, or acute territorial infarction is present per CT criteria. Thompson-white junction is preserved. Cerebrovascular calcifications are identified. Calvarium is intact. Visualized paranasal sinuses demonstrates a mucous retention cyst or polyp in the left maxillary sinus measuring 16 mm. There is mild mucosal thickening of the right maxillary sinus. Nasal septum is deviated to the right. CT/Brain/Head without Contrast IMPRESSION: 1. No acute intracranial process. If clinical concern for acute ischemia, MRI i s a more sensitive exam. 2. Chronic small vessel ischemic disease. Suggestion of the small remote lacun ar infarct in the left cerebellum. 3. Atrophy. One or more dose reduction techniques were used (e.g., Automated exposure contr ol, adjustment of the mA and/or kV according to patient size, use of iterative reconstruction technique). Reading Location: [facility]
--- NOTE | 2024-10-14 20:15 | EKG12_ITS ---
Test Reason : DYSRHYTHMIA Blood Pressure : */* mmHG Vent. Rate : 51 BPM Atrial Rate : 51 BPM P-R Int : 218 ms QRS Dur : 176 ms QT Int : 524 ms P-R-T Axes : 88 -64 -17 degrees QTcB Int : 482 ms Sinus bradycardia with 1st degree A-V block Right bundle branch block Left anterior fascicular block Bifascicular block Abnormal ECG Confirmed by Cody Gimenez ([id number]), photographic editor RACHELE FRANZ ([id number]) on 10/15/2024 10:04:38 AM Referred By: Confirmed By: Cody Gimenez
--- NOTE | 2024-10-14 20:16 | EX.ED.DYSGE1 ---
HPI History of Present Illness Chief Complaint: Confusion Detail of Chief Complaint: Confusion Informant: patient Narrative Narrative: Patient presents to the emergency department with his with complaint of confusion. He woke up this morning and then want a get out of bed per . She then went in around 11:00 and convinced him to get up and he had breakfast and they were able to leave the house and then when he came back he had an episode of incontinence of stool that was formed stool and she had to clean up. He then took a long time getting ready. She noticed increased confusion and disorientation starting between 4 and 5 PM. Patient does have history of UTIs. He has history of liver transplant and renal transplant. He has been taking his tacrolimus and CellCept. No recent illness otherwise. He denies any headache or pain. [facility] Medical History Anemia Asthma Atherosclerotic heart disease of [place] coronary artery without angina pectoris Chronic kidney disease, stage 3a Chronic nonalcoholic liver disease Chronic pain syndrome Cirrhosis of liver Diabetes mellitus, type 2 End stage renal failure on dialysis Essential (primary) hypertension GERD (gastroesophageal reflux disease) History of CVA (cerebrovascular accident) (06/2021) History of non-ST elevation myocardial infarction (NSTEMI) (03/30/20) Hydronephrosis Immunosuppression Left renal artery stenosis Morbid obesity Obstructive sleep apnea Osteoarthritis Renal calculi Segmental and somatic dysfunction of lumbar region Superficial thrombophlebitis TIA (transient ischemic attack) Home Medications ?Medication ?Instructions ?Recorded ?Last Taken ?Type pantoprazole 40 mg tablet,delayed 40 mg PO DAILY gerd 12/20/19 12/02/22 History release (Protonix) oxybutynin chloride 10 mg 10 mg PO DAILY bladder 03/29/20 12/02/22 History tablet,extended release 24 hr aspirin 81 mg tablet,delayed 81 mg PO DAILY HEART HEALTH 04/15/20 12/02/22 History release (Adult Low Dose Aspirin) tacrolimus 1 mg capsule,extended 1 mg PO BID liver transplant 04/15/20 12/02/22 History release 24 hr zafirlukast 20 mg tablet (Accolate) 20 mg PO Q12H BREATHING 04/15/20 12/02/22 History sulfamethoxazole 400 2 tab PO MOWEFR preventative atb 07/17/20 12/02/22 History mg-trimethoprim 80 mg tablet atorvastatin 40 mg tablet 40 mg PO QHS CHOLESTEROL #90 tabs 01/26/22 12/02/22 Rx doxazosin 8 mg tablet 8 mg PO QAM bp #90 tabs 10/06/22 12/02/22 Rx nifedipine 90 mg tablet,extended 90 mg PO DAILY HEART #90 tabs 10/10/22 12/02/22 Rx release 24 hr (Procardia XL) mycophenolate mofetil 250 mg 500 mg PO BID Antirejection 11/02/22 12/02/22 History capsule carvedilol 25 mg tablet (Coreg) 50 mg PO BID BP 11/07/22 12/02/22 History acetaminophen 500 mg tablet 1,000 mg (2 x 500 mg) PO Q6H PRN 11/16/22 Unknown Rx PRN Pain Score 1-5 #0 tabs albuterol sulfate 2.5 mg/3 mL 2.5 mg (3 mL) inhalation Q2H PRN 12/09/22 Unknown Rx (0.083 %) solution for nebulization PRN SOB/Wheezing #0 mL insulin glargine-yfgn 100 unit/mL 20 unit (0.2 mL) subcut BIDAC #0 mL 12/09/22 Unknown Rx (3 mL) subcutaneous pen insulin lispro 100 unit/mL See Protocol subcut ACHS #0 mL 12/09/22 Unknown Rx subcutaneous pen (Humalog KwikPen (U-100) Insulin) menthol 0.44 %-zinc oxide 20.6 % 1 applic topical BID #0 grams 12/09/22 Unknown Rx topical ointment (Calmoseptine) sennosides 8.6 mg-docusate sodium 2 tab PO DAILY PRN PRN 12/09/22 Unknown Rx 50 mg tablet (Stool CONSTIPATION #0 tabs Softener-Stimulant Laxative) allopurinol 200 mg tablet 200 mg PO DAILY 01/26/23 Unknown History oxycodone 10 mg tablet 10 mg PO Q8H PRN 01/26/23 Unknown History clopidogrel 75 mg tablet 75 mg PO DAILY BLOOD THINNER #90 02/02/23 Unknown Rx tabs Allergy/AdvReac Type Severity Reaction Status Date / Time metformin Allergy Other Verified 10/14/24 19:35 pregabalin (From Lyrica) Allergy Other Verified 10/14/24 19:35 Family History Grandmother PGM diabetes Paternal GM. Father Heart disease CVA (cerebral vascular accident) Hypertension Mother Parkinson disease Surgical History History of knee replacement History of left heart catheterization (04/03/20) History of stent insertion of renal artery (2014) Kidney transplant recipient (07/13/12) Kidney transplant recipient Liver transplant recipient (07/13/12) Social History (Updated 10/14/24 @ 20:05 by Alanis Jara) household members: spouse housing: house Smoking Status: Never smoker second hand exposure: No alcohol intake: never substance use type: does not use caffeine: Yes frequency: 3-4 times per week ROS ROS ED Review of Systems ROS Unobtainable: other Constitutional Constitutional ED: Reports lethargy; Denies chills, fever(s), sweats or weight loss Eyes Eyes: Denies blurry vision, change in vision or diplopia ENT ENT ED: Denies rhinorrhea or sore throat Cardiovascular Cardiovascular: Denies chest pain, orthopnea or racing heartbeat Respiratory/Chest Respiratory/Chest: Denies cough, dyspnea, dyspnea on exertion, orthopnea or sputum Gastrointestinal Gastrointestinal: Denies abdominal pain, diarrhea, nausea or vomiting Genitourinary Genitourinary ED: Denies dysuria, hematuria or urinary frequency Musculoskeletal Musculoskeletal: Denies arthralgias, back pain, myalgias or neck pain Integumentary Denies abscess, Abrasions or rash Neurologic Neurologic: Reports other Details: Confusion ; Denies headache(s) or weakness Psychiatric Psychiatric: Denies anxiety, depression or suicidal thoughts Endocrine Endocrinology: Denies polydipsia, polyphagia or polyuria Hematologic/Lymphatic Hematologic/Lymphatic: Denies easy bleeding, easy bruising or lymphadenopathy Allergic/Immunologic Allergic/Immunologic ED: Denies mouth swelling, tongue swelling or urticaria EXAM Physical Exam Const Vital Signs: 10/14/24 19:35 10/14/24 20:34 10/14/24 20:47 Temperature 96.6 F L Temperature Source Temporal Pulse Rate 53 L 52 L 51 L Respiratory Rate 18 Blood Pressure 216/101 H 227/105 H 223/110 H Blood Pressure Mean 139 145 147 Pulse Ox 94 94 10/14/24 21:00 10/14/24 22:00 Temperature Temperature Source Pulse Rate 52 L 53 L Respiratory Rate 16 20 H Blood Pressure 221/108 H 202/114 H Blood Pressure Mean 145 143 Pulse Ox 98 Positive well nourished and well developed General Appearance ED: well developed and NAD HEENT Reports TM's clear and moist mucous membranes normocephalic and atraumatic; Negative for trauma or tenderness Tympanic Membrane ED: Yes TM's clear Eyes PERRL and EOMs intact bilaterally General Eye ED: Negative for pale conjunctiva or scleral icterus Neck no lymphadenopathy, supple and no JVD General: Negative for tenderness Chest Wall inspection of chest normal and palpation of chest normal Chest: Negative for tenderness Resp normal respiratory effort and clear to auscultation bilaterally Effort and Inspection: Negative for respiratory distress or pain with movement Auscultation: Negative for rhonchi, wheezes or diminished lung sounds Cardio regular rate, regular rhythm, S1 normal heart sound, S2 normal heart sound and no murmurs Peripheral Pulses: pulses 2+ throughout GI normal to inspection, nondistended, normoactive bowel sounds, soft to palpation, non-tender, non-distended and no masses Back/Spine no CVA tenderness and no thoracic nor lumbar tenderness Extremity normal to inspection General Extremety ED: Negative for edema General Extremity: Negative for edema Neuro oriented x3, CN's II-XII intact bilaterally, no sensory deficits noted and gait normal Neuro Narrative: Patient awake and alert to person and place but not time. No focal neurologic deficits noted on exam. Sensorium / Orientation: awake, alert, oriented to person, oriented to place and oriented to time Motor Exam: strength 5/5 throughout and strength abnormal Psych mental status grossly normal Skin no rashes or lesions noted and no wounds MDM MDM MDM Narrative Medical decision making narrative: Patient presents with increased confusion today. Patient with history of UTIs in the past. He has not had any falls or head injuries. In the differential would be metabolic disorder versus less likely stroke or TIA. He has no focal deficits. EKG obtained arrival showed a sinus bradycardia with rate of 51 bpm with right bundle branch block. CBC with show white count 7.3 with hemoglobin 13.9 and platelet count of 166. Chemistries unremarkable. BUN was 36 and creatinine 1.54. LFTs unremarkable. Urinalysis positive for UTI with 500 leukocyte esterase and 50-100 WBCs and +1 bacteria. Lactate normal 0.9 and ammonia was less than 10. CT scan of the brain without contrast was unremarkable. Patient had a urine culture sent. He was started on Rocephin 1 g IV. Patient also noted to be hypertensive on arrival and was given labetalol 20 mg IV. Most recent blood pressure 180s over low 100s Lab Data Attestation: I reviewed the patient's lab results. Labs: Laboratory Results - last 24 hr 10/14/24 10/14/24 10/14/24 19:30 20:10 20:15 WBC 7.3 RBC 4.82 Hgb 13.9 Hct 41.9 MCV 86.9 MCH 28.8 MCHC 33.2 RDW Std Deviation 42.5 RDW Coeff of Leonie 13.6 Plt Count 166 MPV 10.6 Immature Gran % (Auto) 0.400 Neut % (Auto) 55.2 Lymph % (Auto) 32.0 Labette % (Auto) 9.1 Eos % (Auto) 3.0 Baso % (Auto) 0.3 Absolute Neuts (auto) 4.1 Absolute Lymphs (auto) 2.35 Nucleated RBC % 0 Sodium 145 Potassium 4.3 Chloride 111 H Carbon Dioxide 27.0 Anion Gap 7 BUN 36 H Creatinine 1.54 H Estim Creat Clear Calc 58.14 Est GFR (MDRD) Af Amer 57 L Est GFR (MDRD) Non-Af 47 L BUN/Creatinine Ratio 23.4 H Glucose 118 H Lactic Acid Calcium 9.3 Total Bilirubin 0.60 AST 13 L ALT 28 Alkaline Phosphatase 103 Ammonia Troponin I High Sens 24 Total Protein 6.8 Albumin 3.9 Globulin 2.9 Albumin/Globulin Ratio 1.3 Urine Color Yellow Urine Clarity Sl Cldy Urine pH 5.0 Ur Specific Dodson 1.025 Urine Protein 500 H Urine Glucose (UA) Normal Urine Ketones Negative Urine Occult Blood 25 H Urine Nitrite Negative Urine Bilirubin 1 H Urine Urobilinogen Normal Ur Leukocyte Esterase 500 H Urine RBC 0-5 SEEN Urine WBC 50-100 SEEN Ur Squamous Epith Cells 0-5 SEEN Urine Bacteria 1+ Hyaline Casts 0-5 SEEN Urine Mucus 1+ POC Glucose 115 H 10/14/24 10/14/24 20:20 21:20 WBC RBC Hgb Hct MCV MCH MCHC RDW Std Deviation RDW Coeff of Leonie Plt Count MPV Immature Gran % (Auto) Neut % (Auto) Lymph % (Auto) [place] % (Auto) Eos % (Auto) Baso % (Auto) Absolute Neuts (auto) Absolute Lymphs (auto) Nucleated RBC % Sodium Potassium Chloride Carbon Dioxide Anion Gap BUN Creatinine Estim Creat Clear Calc Est GFR (MDRD) Af Amer Est GFR (MDRD) Non-Af BUN/Creatinine Ratio Glucose Lactic Acid 0.9 Calcium Total Bilirubin AST ALT Alkaline Phosphatase Ammonia < 10.0 L Troponin I High Sens Total Protein Albumin Globulin Albumin/Globulin Ratio Urine Color Urine Clarity Urine pH Ur Specific Dodson Urine Protein Urine Glucose (UA) Urine Ketones Urine Occult Blood Urine Nitrite Urine Bilirubin Urine Urobilinogen Ur Leukocyte Esterase Urine RBC Urine WBC Ur Squamous Epith Cells Urine Bacteria Hyaline Casts Urine Mucus POC Glucose Radiography Diagnostic Testing: Clinical Impression(s) from Imaging Studies Brain CT 10/14/24 20:14 IMPRESSION: 1. No acute intracranial process. If clinical concern for acute ischemia, MRI is a more sensitive exam. 2. Chronic small vessel ischemic disease. Suggestion of the small remote lacunar infarct in the left cerebellum. 3. Atrophy. One or more dose reduction techniques were used (e.g., Automated exposure control, adjustment of the mA and/or kV according to patient size, use of iterative reconstruction technique). Reading [facility] Chest X-Ray 10/14/24 20:30 IMPRESSION: 1. No consolidation, pleural effusion, or pneumothorax. 2. Linear streak atelectasis in the right perihilar region. 3. Cardiomegaly. Reading Location[facility] 1 view chest x-ray obtained interpreted by myself as no evidence of infiltrate or pneumothorax or acute disease process. Radiology in agreement EKG Initial EKG: Attestation: I personally reviewed and interpreted this EKG as follows: Comments: Sinus rhythm with rate of 51 bpm with right bundle branch block Discharge Plan Dx/Rx/DC Orders Clinical Impression: Acute UTI, Hypertensive urgency, Acute confusion Disposition Disposition: [facility]
[2024-10-14] MEDS: 0.9% Normal Saline (1000mL) 1,000 ML 1000 ML IV (20:19)
--- NOTE | 2024-10-14 20:30 | RAD_ITS ---
PROCEDURE: CHEST PA AND LATERAL REASON FOR EXAM: Confusion. Hypertension. TECHNIQUE: Frontal and lateral views of the chest. COMPARISON: Chest x-ray from 11/27/2022. FINDINGS: Cardiomegaly is present. Pulmonary vasculature is within normal limits. There is linear streak atelectasis in the right perihilar region. No consolidation, pleural effusion, or pneumothorax is present. RAD/Chest PA and Lateral IMPRESSION: 1. No consolidation, pleural effusion, or pneumothorax. 2. Linear streak atelectasis in the right perihilar region. 3. Cardiomegaly. Reading [facility]
[2024-10-14 20:31] LABS: Absolute Lymphocyte Count 2.35 X10^3/uL (0.83-4.51); Absolute Neutrophil Count 4.1 X10^3/uL (2.0-7.7); Basophil# 0.02 X10^3/uL; Basophil% 0.3 % (0-1); Eosinophil# 0.22 X10^3/uL; Hematocrit 41.9 % (40-54); Hemoglobin 13.9 g/dL (13.0-16.5); Lymphocyte # 2.35 X10^3/ul (0.83-4.51); Mean Corp Hgb Conc 33.2 g/dL (32-36); Mean Corpuscular Hgb 28.8 pg (27.0-32.0); Mean Corpuscular Volume 86.9 fL (80-94); Mean Platelet Vol. 10.6 fl (6.2-12.0); Monocyte# 0.67 X10^3/uL; Monocyte% 9.1 % (0-10); NRBC Flagged by Analyzer 0 % (0-5); Neutrophil # 4.05 X10^3/uL (2.7-7.7); Neutrophil % 55.2 % (47-70); Platelet Count 166 K/mm3 (150-450); RBC Distribution Width CV 13.6 % (11.6-14.6); RBC Distribution Width SD 42.5 fl (35.1-43.9); Red Blood Count 4.82 M/mm3 (4.6-6.2); White Blood Count 7.3 K/mm3 (4.4-11.0)
[2024-10-14 20:32] LABS: Color, Urine Yellow (Yellow); Glucose, Dipstick Normal (Normal); Ketone-Dipstick Negative (Negative); Leukocyte Esterase-Dipstick 500 /ul (Negative); Nitrite-Dipstick Negative (Negative); Occult Blood-Urine 25 /ul (Negative); Protein-Dipstick 500 mg/dl (Negative); Specific Gravity, Urine 1.025 (1.002-1.030); Urine Urobilinogen Normal (Normal)
[2024-10-14 20:33] LABS: Bedside Glucose 115 mg/dL (74-106)
[2024-10-14 20:42] LABS: Urine Bilirubin Dipstick 1 mg/dL (Negative); Urine Clarity Sl Cldy (Clear)
[2024-10-14 20:47] LABS: Bacteria 1+ /hpf (None Seen); Hyaline Cast 0-5 SEEN /lpf (0-5); Mucous, Urine 1+ /hpf (<or=2+); Red Blood Cells-Urine 0-5 SEEN /hpf (0-5); Squamous Epithelial Cells - UA 0-5 SEEN /hpf (0-5); White Blood Cells 50-100 SEEN /hpf (0-5)
[2024-10-14 20:51] LABS: ALB/GLOB Ratio 1.3 RATIO (0.9-2.4); AST(SGOT) 13 U/L (15-37); Alanine Aminotransfer ALT/SGPT 28 U/L (16-61); Albumin, Serum 3.9 g/dL (3.2-5.0); Alkaline Phosphatase 103 U/L (45-117); Anion Gap 7 (5-15); BUN 36 mg/dL (7-18); BUN/Creat Ratio 23.4 RATIO (10-20); Calcium,Total 9.3 mg/dL (8.5-10.1); Chloride 111 mmol/L (98-107); Creatinine, Serum 1.54 mg/dL (0.70-1.30); EST Glomerular Filtration Rate 47 mL/min (>60); Est Glom Filt Rate - Afr Amer 57 mL/min (>60); Estimated Creatinine Clearance 58.14 ml/min; Globulin 2.9 g/dL (2.2-4.2); Glucose 118 mg/dL (74-106); Potassium 4.3 mmol/L (3.5-5.1); Protein, Total 6.8 g/dL (6.4-8.2); Sodium Level 145 mmol/L (136-145); Troponin-I HS 24 pg/mL (3.0-78.0)
[2024-10-14 20:55] LABS: Lactic Acid 0.9 mmol/L (0.4-1.9)
[2024-10-14] MEDS: Ceftriaxone 1 GM/50 ML BAG IV (21:21)
[2024-10-14 21:51] LABS: Ammonia < 10.0 umol/L (11-32)
--- NOTE | 2024-10-14 22:38 | PCM.HP.STD ---
[facility] - General General Date of Admission: 10/14/24 Date of Service: 10/14/24 Chief Complaint: Confusion. [facility] Narrative TOM GALLAGHER, is a 73 M with a past medical history of essential hypertension; on nifedipine and carvedilol, dyslipidemia; on atorvastatin, history of Left renal and liver transplants (2011); on mycophenolate, tacrolimus and suppressive TMP/SMX (--), morbid obesity; with BMI of 40.3 this admission, PAUL; on BiPAP, nonalcoholic fatty liver disease; with cirrhosis as primary cause of liver transplant, DM-2; of unknown control on insulin glargine 20 units SQ twice daily and insulin lispro SSI AC/HS, CAD; s/p non-ST elevation NV with [facility] (2019), history of TIA/CVA (2017) plus (2020 treated with tPA), CKD; stage IIIa in the setting of previous ESRD on HD, history of Left renal artery stenosis; s/p stents x 2 (2014) on baby aspirin and Plavix daily, OAB; on oxybutynin, BPH; on doxazosin, history of UTIs, history of renal calculi, history of superficial thrombophlebitis, chronic anemia, history of asthma; previously on zafirlukast, history of COVID-19 pneumonia (2022), history of gout; on allopurinol, GERD; on pantoprazole and OA; with history of TKR and chronic pain syndrome on oxycodone 5 mg p.o. every 8 hours as needed and chronic physical deconditioning with segmental and somatic dysfunction of lumbar region who presents to [facility] ER complaining of confusion. Mr. Gallagher is not a fully-reliable story at this time to information gathered from chart, medical staff and computer. According to the records his noted the patient was not feeling well this morning and did not want to get out of bed with patient taking a long time to get ready. Then at around 11 AM she convinced him to get up and they had breakfast were able to leave the house and he came back with an episode of incontinence of stool, formed stool that she had to clean up. She then noticed increasing confusion and disorientation starting at between 4-5 p.m. she states he has been taking his tacrolimus and CellCept as prescribed. She denies other recent illness, headache or other significant pain or injury. He admits to lethargy and confusion but denies fever, chills or focal motor neurologic deficits. In the ER he was noted to have highly elevated blood pressure of 216/101 mmHg present on admission consistent with suspected Hypertensive Emergency complicated by laboratory evidence of Acute Cystitis; without hematuria with corresponding clinical evidence of Metabolic Encephalopathy and he was then admitted to the PCU for ongoing care for status expected to extend beyond 2 midnights. [facility] Medical History (Updated 10/14/24 @ 23:[address] Dallin Dan ) History of CVA (cerebrovascular accident) (06/2021) Diabetes mellitus, type 2 Coronary artery disease BPH (benign prostatic hyperplasia) Hyperlipidemia Gout Overactive bladder GERD (gastroesophageal reflux disease) Debility Immunosuppression Chronic kidney disease, stage 3a Morbid obesity Atherosclerotic heart disease of marsh[place] coronary artery without angina pectoris History of non-ST elevation myocardial infarction (NSTEMI) (03/30/20) Essential (primary) hypertension Renal calculi Asthma Left renal artery stenosis Segmental and somatic dysfunction of lumbar region TIA (transient ischemic attack) GERD (gastroesophageal reflux disease) Chronic pain syndrome Obstructive sleep apnea Superficial thrombophlebitis Osteoarthritis Hydronephrosis End stage renal failure on dialysis Cirrhosis of liver Chronic nonalcoholic liver disease Anemia Home Medications ?Medication ?Instructions ?Recorded ?Last Taken ?Type pantoprazole 40 mg tablet,delayed 40 mg PO DAILY gerd 12/20/19 12/02/22 History release (Protonix) oxybutynin chloride 10 mg 10 mg PO DAILY bladder 03/29/20 12/02/22 History tablet,extended release 24 hr aspirin 81 mg tablet,delayed 81 mg PO DAILY HEART HEALTH 04/15/20 12/02/22 History release (Adult Low Dose Aspirin) zafirlukast 20 mg tablet (Accolate) 20 mg PO Q12H BREATHING 04/15/20 12/02/22 History sulfamethoxazole 400 2 tab PO MOWEFR preventative atb 07/17/20 12/02/22 History mg-trimethoprim 80 mg tablet atorvastatin 40 mg tablet 40 mg PO QHS CHOLESTEROL #90 tabs 01/26/22 12/02/22 Rx doxazosin 8 mg tablet 8 mg PO QAM bp #90 tabs 10/06/22 12/02/22 Rx mycophenolate mofetil 250 mg 500 mg PO BID Antirejection 11/02/22 12/02/22 History capsule carvedilol 25 mg tablet (Coreg) 50 mg PO BID BP 11/07/22 12/02/22 History acetaminophen 500 mg tablet 1,000 mg (2 x 500 mg) PO Q6H PRN 11/16/22 Unknown Rx PRN Pain Score 1-5 #0 tabs albuterol sulfate 2.5 mg/3 mL 2.5 mg (3 mL) inhalation Q2H PRN 12/09/22 Unknown Rx (0.083 %) solution for nebulization PRN SOB/Wheezing #0 mL insulin glargine-yfgn 100 unit/mL 20 unit (0.2 mL) subcut BIDAC 12/09/22 Unknown Rx (3 mL) subcutaneous pen HYPERGLYCEMIA #0 mL menthol 0.44 %-zinc oxide 20.6 % 1 applic topical BID AFFECTED AREA 12/09/22 Unknown Rx topical ointment (Calmoseptine) #0 grams sennosides 8.6 mg-docusate sodium 2 tab PO DAILY PRN PRN 12/09/22 Unknown Rx 50 mg tablet (Stool CONSTIPATION #0 tabs Softener-Stimulant Laxative) allopurinol 200 mg tablet 200 mg PO DAILY gout 01/26/23 Unknown History oxycodone 10 mg tablet 10 mg PO Q12H PRN pain 01/26/23 Unknown History clopidogrel 75 mg tablet 75 mg PO DAILY BLOOD THINNER #90 02/02/23 Unknown Rx tabs insulin lispro 100 unit/mL See Protocol subcut ACHS 10/14/24 Unknown History subcutaneous pen (Humalog KwikPen HYPERGLYCEMIA (U-100) Insulin) montelukast 10 mg tablet 10 mg PO DAILY allergies 10/14/24 Unknown History nifedipine 90 mg tablet,extended 90 mg PO DAILY HTN 10/14/24 Unknown History release nystatin 100,000 unit/gram topical 1 applic topical BID AFFECTED AREA 10/14/24 Unknown History powder (Klayesta) nystatin 100,000 unit/gram topical 1 applic topical DAILY PRN skin 10/14/24 Unknown History powder (Klayesta) irritation prednisone 5 mg tablet 5 mg PO DAILY ANTIREJECTION 10/14/24 Unknown History tacrolimus 1 mg capsule, 1 mg PO BID TRANSPLANT 10/14/24 Unknown History immediate-release Allergy/AdvReac Type Severity Reaction Status Date / Time metformin Allergy Other Verified 10/14/24 19:35 pregabalin (From Lyrica) Allergy Other Verified 10/14/24 19:35 Family History Grandmother PGM diabetes Paternal GM. Father Heart disease CVA (cerebral vascular accident) Hypertension Mother Parkinson disease Surgical History History of renal transplant History of liver transplant History of kidney transplant History of liver transplant Kidney transplant recipient History of left heart catheterization (04/03/20) History of stent insertion of renal artery (2014) History of knee replacement Liver transplant recipient (07/13/12) Kidney transplant recipient (07/13/12) Social History household members: spouse housing: house Smoking Status: Never smoker second hand exposure: No alcohol intake: never substance use type: does not use caffeine: Yes frequency: 3-4 times per week ROS ROS Narrative Full review of systems was not possible due to patient's confusion as noted in HPI. Vital Signs Vital Signs Vital Signs: 10/14/24 19:35 10/14/24 20:34 10/14/24 20:47 Temperature 96.6 F L Temperature Source Temporal Pulse Rate 53 L 52 L 51 L Respiratory Rate 18 Blood Pressure 216/101 H 227/105 H 223/110 H Blood Pressure Mean 139 145 147 Pulse Ox 94 94 10/14/24 21:00 10/14/24 22:00 Temperature Temperature Source Pulse Rate 52 L 53 L Respiratory Rate 16 20 H Blood Pressure 221/108 H 202/114 H Blood Pressure Mean 145 143 Pulse Ox 98 Weight Weight: 281 lb 1.43 oz Body Mass Index (BMI) 40.3 Physical Exam Const alert, no apparent distress and average body habitus Constitutional Narrative: Patient appears chronically ill. General Appearance: cooperative Orientation / Consciousness: confused HEENT normocephalic, head/scalp atraumatic, hearing grossly normal bilaterally and moist oral mucous membranes Eyes PERRL, EOMs intact bilaterally and conjunctivae normal Neck no lymphadenopathy, supple and no JVD Resp normal respiratory effort, no retractions, no use of accessory muscles and clear to auscultation bilaterally Cardio regular rate and regular rhythm GI normal to inspection, nondistended, normoactive bowel sounds, soft to palpation, non-tender and non-distended GI Narrative: Morbidly obese. Extremity normal to inspection, full ROM and no clubbing, cyanosis or edema Skin Skin Narrative: Patient has no evidence of rash, abscess wounds or jaundice. Neuro CN's II-XII intact bilaterally, moves all extremities and no focal motor deficits Sensorium / Orientation: awake, alert, oriented to person and oriented to place Speech: speech normal Psych affect normal Results Medical Records Data Attestation: I reviewed the patient's medical records Lab / Micro Data Attestation: I reviewed the patient's lab results. 10/15/24 06:58 10/14/24 19:30 Labs: Laboratory Results - last 24 hr 10/14/24 19:30: WBC 7.3, RBC 4.82, Hgb 13.9, Hct 41.9, MCV 86.9, MCH 28.8, MCHC 33.2, RDW Std Deviation 42.5, RDW Coeff of Leonie 13.6, Plt Count 166, MPV 10.6, Immature Gran % (Auto) 0.400, Neut % (Auto) 55.2, Lymph % (Auto) 32.0, [place] % (Auto) 9.1, Eos % (Auto) 3.0, Baso % (Auto) 0.3, Absolute Neuts (auto) 4.1, Absolute Lymphs (auto) 2.35, Nucleated RBC % 0, Sodium 145, Potassium 4.3, Chloride 111 H, Carbon Dioxide 27.0, Anion Gap 7, BUN 36 H, Creatinine 1.54 H, Estim Creat Clear Calc 58.14, Est GFR (MDRD) Af Amer 57 L, Est GFR (MDRD) Non-Af 47 L, BUN/Creatinine Ratio 23.4 H, Glucose 118 H, Calcium 9.3, Total Bilirubin 0.60, AST 13 L, ALT 28, Alkaline Phosphatase 103, Troponin I High Sens 24, Total Protein 6.8, Albumin 3.9, Globulin 2.9, Albumin/Globulin Ratio 1.3 10/14/24 20:10: Urine Color Yellow, Urine Clarity Sl Cldy, Urine pH 5.0, Ur Specific [place] 1.025, Urine Protein 500 H, Urine Glucose (UA) Normal, Urine Ketones Negative, Urine Occult Blood 25 H, Urine Nitrite Negative, Urine Bilirubin 1 H, Urine Urobilinogen Normal, Ur Leukocyte Esterase 500 H, Urine RBC 0-5 SEEN, Urine WBC 50-100 SEEN, Ur Squamous Epith Cells 0-5 SEEN, Urine Bacteria 1+, Hyaline Casts 0-5 SEEN, Urine Mucus 1+ 10/14/24 20:15: POC Glucose 115 H 10/14/24 20:20: Lactic Acid 0.9 10/14/24 21:20: Ammonia < 10.0 L Micro: Microbiology 10/14/24 20:20 Mucosa - Nose SARS-CoV-2, Influenza & RSV (PCR) - Final Imaging Radiology Impression Brain CT 10/14/24 20:14 IMPRESSION: 1. No acute intracranial process. If clinical concern for acute ischemia, MRI is a more sensitive exam. 2. Chronic small vessel ischemic disease. Suggestion of the small remote lacunar infarct in the left cerebellum. 3. Atrophy. One or more dose reduction techniques were used (e.g., Automated exposure control, adjustment of the mA and/or kV according to patient size, use of iterative reconstruction technique). Reading Location: [facility] Chest X-Ray 10/14/24 20:30 IMPRESSION: 1. No consolidation, pleural effusion, or pneumothorax. 2. Linear streak atelectasis in the right perihilar region. 3. Cardiomegaly. Reading Location: [facility] Assessment & Plan Assessment/Plan (1) Hypertensive emergency: (2) Acute cystitis without hematuria: (3) Metabolic encephalopathy: (4) History of CVA (cerebrovascular accident): (5) History of renal transplant: (6) History of liver transplant: (7) Morbid obesity with BMI of 40.0-44.9, adult: PLAN: Plan 1. Hypertensive Emergency; evidenced by highly elevated blood pressure of 216/101 mmHg present on admission - Admit to PCU. Continue home regimen plus give prn IV hydralazine for systolic blood pressure > 170 mmHg. Serialize troponin. 2. Acute Cystitis; without hematuria in the setting of known previous UTI's complicating #1 - Resume empiric IV ceftriaxone begun in the ER and await culture and sensitivity data. 3. Metabolic Encephalopathy attributable to #1 & #2 - Check TSH, B12, Folic Acid, GERALDO and UDS to evaluate for potentially reversible causes of confusion. Otherwise, continue care plan as outlined above and monitor for improvement. 4. History of TIA/CVA (2017) plus (2020 treated with tPA) adding to the medical complexity of #1 - #3 - Noted. Check MRI of the brain without contrast in the AM. Doubt CVA. 5. History of Left renal and liver transplants (2011); on mycophenolate, tacrolimus and suppressive TMP/SMX (--) adding to the burden of disease outlined from #1 - #4 - Maintain current regimen. 6. Morbid Obesity; with BMI of 40.3 this admission plus PAUL; on BiPAP and nonalcoholic fatty liver disease; with cirrhosis as primary cause of liver transplant - Weight loss will be recommended. Check TSH. This complicates his case and may hamper recovery. 7. OA; with history of TKR and chronic pain syndrome on oxycodone 5 mg p.o. every 8 hours as needed and chronic physical deconditioning with segmental and somatic dysfunction of lumbar region - Stable. Minimize CARBON ACCOUNTANT-active medications to allow sensorium to clear. 8. Essential Hypertension; on nifedipine and carvedilol - Resume nifedipine and carvedilol as previous plus give as needed IV hydralazine for systolic blood pressure greater than 160 mmHg. 9. Dyslipidemia; on atorvastatin - Maintain statin and check Lipid Profile this admission. 10. DM-2; of unknown control on insulin glargine 20 units SQ twice daily and insulin lispro SSI AC/HS - ADA diet. FSBS q. AC/HS plus SSI. Check hemoglobin A1c to objectively assess quality of diabetic control. 11. CAD; s/p non-ST elevation NV with [facility] (2019) - Serialize troponin. 12. CKD; stage IIIa in the setting of previous ESRD on HD - Stable. Check renal indices daily to ensure continued stability. 13. History of Left renal artery stenosis; s/p stents x 2 (2014) on baby aspirin and Plavix daily - Noted. Continue current regimen. 14. OAB; on oxybutynin - Resume oxybutynin as previous 15. BPH; on doxazosin - Continue doxazosin as before. 16. History of renal calculi - Stable with no evidence of recurrence at this time. 17. History of superficial thrombophlebitis - Noted. 18. Chronic anemia - Stable with hemoglobin of 13.9 g/dL and MCV of 86.9 fL present on admission. 19. History of asthma; previously on zafirlukast - Stable with no evidence of acute flare at this time. Give nebulizers as needed. 20. History of COVID-19 pneumonia (2022) - Noted. 21. History of gout; on allopurinol - Noted. 22. GERD; on pantoprazole - Continue PPI. 23. DVT prophylaxis - Heparin 5,000U sq TID plus SCD's. Total time: Approximately (but not less than) 75 minutes. Charges/Coding Visit Charges Inpatient E&M: 80570 Init Hosp L3
[2024-10-14] MEDS: cloNIDine HCl 0.1 MG Tablet PO (22:40)
[2024-10-15] VITALS (17 sets, daily range): BP systolic 112–204; BP diastolic 72–96; PULSE 51–68; RESP 12–21; TEMP 36.1–36.7; O2SAT 94–99; BMI 39.4
--- NOTE | 2024-10-15 00:09 | MRI_ITS ---
PROCEDURE: BRAIN WITHOUT CONTRAST REASON FOR EXAM: Acute confusion. TECHNIQUE: Multiplanar, multisequence MRI of the brain without intravenous gadolinium-based contrast. COMPARISON: Head CT 10/14/2024. FINDINGS: Diffusion-weighted images demonstrate no area of restricted diffusion. Moderate generalized cerebral and cerebellar atrophy is noted, with symmetric ventricular enlargement consistent with the degree of atrophy. Prominent bilateral cerebral white matter changes are seen, predominantly periventricular, similar to the comparison CT examination, and consistent with chronic ischemic changes of small-vessel disease. No extra-axial fluid collection is noted. No intracranial mass is seen. No orbital pathology is evident. Mild mucosal thickening is seen of the bilateral ethmoid and maxillary sinuses. No air-fluid level is noted. The remaining paranasal sinuses appear clear, as do the mastoid air cells. MRI/Brain without Contrast IMPRESSION: 1. Moderate generalized cerebral and cerebellar atrophy. 2. Prominent bilateral cerebral white matter changes, most consistent with residential property manager nilay ischemic changes of small-vessel disease. 3. No acute process is evident. Reading Location: [id number]
[2024-10-15 00:35] LABS: Vitamin B12 395 pg/mL (211-911)
[2024-10-15] MEDS: 0.9% Normal Saline (1000mL) 1,000 ML 30 ML IV (01:02)
[2024-10-15] MEDS: 0.9% Saline Lock 10 ML Syringe IV ×2 (01:04→21:51)
[2024-10-15] MEDS: hydrALAZINE 20 MG/ML Vial 5 MG IV ×2 (01:10→09:46)
[2024-10-15 01:11] LABS: Cholesterol 139 mg/dL (200); High Density Lipoprotein 37 mg/dL; Triglycerides 168 mg/dL; Very Low Density Lipoprotein 34 mg/dL (5-40)
[2024-10-15 01:24] LABS: Troponin-I HS 20 pg/mL (3.0-78.0)
[2024-10-15 01:38] LABS: Bedside Glucose 134 mg/dL (74-106)
[2024-10-15 03:50] LABS: Troponin-I HS 19 pg/mL (3.0-78.0)
[2024-10-15] MEDS: Heparin Injection (Vial) 5,000 UNIT/ML VIAL 5000 UNIT SC ×3 (05:14→21:47)
[2024-10-15 07:04] LABS: Absolute Lymphocyte Count 2.11 X10^3/uL (0.83-4.51); Absolute Neutrophil Count 3.5 X10^3/uL (2.0-7.7); Basophil# 0.01 X10^3/uL; Basophil% 0.2 % (0-1); Eosinophil# 0.24 X10^3/uL; Eosinophils% 3.7 % (0-5); Hematocrit 37.3 % (40-54); Hemoglobin 12.1 g/dL (13.0-16.5); Lymphocyte # 2.11 X10^3/ul (0.83-4.51); Lymphocyte % 32.6 % (19-41); Mean Corp Hgb Conc 32.4 g/dL (32-36); Mean Corpuscular Hgb 28.2 pg (27.0-32.0); Mean Corpuscular Volume 86.9 fL (80-94); Monocyte# 0.56 X10^3/uL; Monocyte% 8.6 % (0-10); NRBC Flagged by Analyzer 0 % (0-5); Neutrophil # 3.54 X10^3/uL (2.7-7.7); Neutrophil % 54.6 % (47-70); Platelet Count 144 K/mm3 (150-450); RBC Distribution Width CV 13.7 % (11.6-14.6); RBC Distribution Width SD 42.9 fl (35.1-43.9); Red Blood Count 4.29 M/mm3 (4.6-6.2); White Blood Count 6.5 K/mm3 (4.4-11.0)
[2024-10-15 08:27] LABS: ALB/GLOB Ratio 1.3 RATIO (0.9-2.4); AST(SGOT) 12 U/L (15-37); Alanine Aminotransfer ALT/SGPT 27 U/L (16-61); Albumin, Serum 3.3 g/dL (3.2-5.0); Alkaline Phosphatase 91 U/L (45-117); Anion Gap 6 (5-15); BUN 34 mg/dL (7-18); BUN/Creat Ratio 21.2 RATIO (10-20); Calcium,Total 8.9 mg/dL (8.5-10.1); Chloride 113 mmol/L (98-107); EST Glomerular Filtration Rate 45 mL/min (>60); Est Glom Filt Rate - Afr Amer 55 mL/min (>60); Globulin 2.6 g/dL (2.2-4.2); Glucose 121 mg/dL (74-106); Magnesium 1.9 mg/dL (1.6-2.6); Phosphorus 3.8 mg/dL (2.5-4.9); Potassium 4.2 mmol/L (3.5-5.1); Protein, Total 5.9 g/dL (6.4-8.2); Sodium Level 143 mmol/L (136-145); Troponin-I HS 22 pg/mL (3.0-78.0)
[2024-10-15] MEDS: Clopidogrel Bisulfate 75 MG Tablet PO (09:11)
[2024-10-15] MEDS: Doxazosin 4 MG Tablet 8 MG PO (09:11)
[2024-10-15] MEDS: Tolterodine Tartrate 2 MG CAP.SA PO (09:11)
[2024-10-15] MEDS: Carvedilol 25 MG Tablet 50 MG PO ×2 (09:11→21:46)
[2024-10-15] MEDS: Allopurinol 100 MG Tablet 200 MG PO (09:11)
[2024-10-15] MEDS: NIFEdipine 90 MG Tablet PO (09:11)
[2024-10-15] MEDS: Aspirin E.C. 81 MG Tablet PO (09:11)
[2024-10-15] MEDS: Mycophenolate Mofetil 250 MG Capsule 500 MG PO ×2 (09:13→21:46)
[2024-10-15] MEDS: Menthol/Lanolin/Calamine/Znox 113 GM Tube 1 APPLIC TOPICAL ×2 (09:14→21:46)
[2024-10-15] MEDS: Lactobacillis Acidophilus 1 CAP PO ×4 (09:14→21:45)
[2024-10-15] MEDS: Pantoprazole Sodium 40 MG Tablet PO (09:22)
[2024-10-15] MEDS: Insulin Glargine-YFGN 100 UNIT/ML Pen 12 UNIT SC ×2 (09:23→17:17)
[2024-10-15 09:44] LABS: Hemoglobin A1c 5.5 % (3.8-5.6)
--- NOTE | 2024-10-15 09:44 | PCM.PN.HOSP ---
Reason for Visit Reason for Visit: Diagnoses Morbid (severe) obesity due to excess calories (10/14/24) Metabolic encephalopathy (10/14/24) Hypertensive emergency (10/14/24) Acute cystitis without hematuria (10/14/24) Body mass index [BMI] 40.0-44.9, adult (10/14/24) Personal history of transient ischemic attack (TIA), and cerebral infarction without residual deficits (10/14/24) Kidney transplant status (10/14/24) Liver transplant status (10/14/24) Subjective Subjective Feels well. Denies complaints. Objective Data Objective Data Vital Signs: Vital Signs Temp Pulse Resp BP Pulse Ox O2 Del Method FiO2 36.6 C 55 L 19 H 181/96 H 95 Room Air 28 10/15/24 05:21 10/15/24 07:20 10/15/24 07:20 10/15/24 05:21 10/15/24 07:50 10/15/24 07:50 10/15/24 07:20 Oxygen Delivery Method Room Air Weight: 124.7 kg Body Mass Index (BMI) 39.4 Intake & Output: Intake and Output for Last 24 Hours 10/13/24 10/14/24 10/15/24 23:59 23:59 23:59 Intake Total 1050 / 1050 240 / 240 Output Total 360 / 360 Balance 1050 / 1050 -120 / -120 Lab / Micro Data 10/15/24 06:58 10/15/24 06:58 Labs: Laboratory Results - last 24 hr 10/14/24 19:30: WBC 7.3, RBC 4.82, Hgb 13.9, Hct 41.9, MCV 86.9, MCH 28.8, MCHC 33.2, RDW Std Deviation 42.5, RDW Coeff of Leonie 13.6, Plt Count 166, MPV 10.6, Immature Gran % (Auto) 0.400, Neut % (Auto) 55.2, Lymph % (Auto) 32.0, [place] % (Auto) 9.1, Eos % (Auto) 3.0, Baso % (Auto) 0.3, Absolute Neuts (auto) 4.1, Absolute Lymphs (auto) 2.35, Nucleated RBC % 0, Sodium 145, Potassium 4.3, Chloride 111 H, Carbon Dioxide 27.0, Anion Gap 7, BUN 36 H, Creatinine 1.54 H, Estim Creat Clear Calc 58.14, Est GFR (MDRD) Af Amer 57 L, Est GFR (MDRD) Non-Af 47 L, BUN/Creatinine Ratio 23.4 H, Glucose 118 H, Hemoglobin A1c 5.5, Calcium 9.3, Total Bilirubin 0.60, AST 13 L, ALT 28, Alkaline Phosphatase 103, Troponin I High Sens 24, Total Protein 6.8, Albumin 3.9, Globulin 2.9, Albumin/Globulin Ratio 1.3, Triglycerides 168, Cholesterol 139, LDL Cholesterol 68, VLDL Cholesterol 34, HDL Cholesterol 37 L, Vitamin B12 395, Folate 32.60, TSH 4.190 H 10/14/24 20:10: Urine Color Yellow, Urine Clarity Sl Cldy, Urine pH 5.0, Ur Specific [place] 1.025, Urine Protein 500 H, Urine Glucose (UA) Normal, Urine Ketones Negative, Urine Occult Blood 25 H, Urine Nitrite Negative, Urine Bilirubin 1 H, Urine Urobilinogen Normal, Ur Leukocyte Esterase 500 H, Urine RBC 0-5 SEEN, Urine WBC 50-100 SEEN, Ur Squamous Epith Cells 0-5 SEEN, Urine Bacteria 1+, Hyaline Casts 0-5 SEEN, Urine Mucus 1+ 10/14/24 20:15: POC Glucose 115 H 10/14/24 20:20: Lactic Acid 0.9 10/14/24 21:20: Ammonia < 10.0 L 10/15/24 00:53: Troponin I High Sens 20 10/15/24 01:17: POC Glucose 134 H 10/15/24 03:08: Troponin I High Sens 19 10/15/24 06:58: WBC 6.5, RBC 4.29 L, Hgb 12.1 L, Hct 37.3 L, MCV 86.9, MCH 28.2, MCHC 32.4, RDW Std Deviation 42.9, RDW Coeff of Leonie 13.7, Plt Count 144 L, MPV 10.0, Immature Gran % (Auto) 0.300, Neut % (Auto) 54.6, Lymph % (Auto) 32.6, [place] % (Auto) 8.6, Eos % (Auto) 3.7, Baso % (Auto) 0.2, Absolute Neuts (auto) 3.5, Absolute Lymphs (auto) 2.11, Nucleated RBC % 0, Sodium 143, Potassium 4.2, Chloride 113 H, Carbon Dioxide 24.0, Anion Gap 6, BUN 34 H, Creatinine 1.60 H, Estim Creat Clear Calc 55.30, Est GFR (MDRD) Af Amer 55 L, Est GFR (MDRD) Non-Af 45 L, BUN/Creatinine Ratio 21.2 H, Glucose 121 H, Calcium 8.9, Phosphorus 3.8, Magnesium 1.9, Total Bilirubin 0.60, AST 12 L, ALT 27, Alkaline Phosphatase 91, Troponin I High Sens 22, Total Protein 5.9 L, Albumin 3.3, Globulin 2.6, Albumin/Globulin Ratio 1.3 Micro: Microbiology 10/14/24 20:10 Urine, Clean Catch Urine Culture - Preliminary Culture exhibits no growth. 10/14/24 20:20 Mucosa - Nose SARS-CoV-2, Influenza & RSV (PCR) - Final Radiography Diagnostic Testing: Radiology Impression Brain CT 10/14/24 20:14 IMPRESSION: 1. No acute intracranial process. If clinical concern for acute ischemia, MRI is a more sensitive exam. 2. Chronic small vessel ischemic disease. Suggestion of the small remote lacunar infarct in the left cerebellum. 3. Atrophy. One or more dose reduction techniques were used (e.g., Automated exposure control, adjustment of the mA and/or kV according to patient size, use of iterative reconstruction technique). Reading Location: [facility] Chest X-Ray 10/14/24 20:30 IMPRESSION: 1. No consolidation, pleural effusion, or pneumothorax. 2. Linear streak atelectasis in the right perihilar region. 3. Cardiomegaly. Reading Location: [facility] Physical Exam Const alert and no apparent distress Constitutional Narrative: A+O x2 (does not know date) HEENT head/scalp atraumatic and moist oral mucous membranes Resp normal respiratory effort, no retractions, no use of accessory muscles and clear to auscultation bilaterally Cardio regular rate, regular rhythm, S1 normal heart sound and S2 normal heart sound Neuro Sensorium / Orientation: awake and alert Psych affect normal Assessment & Plan Assessment/Plan (1) Hypertensive emergency: (2) Acute cystitis without hematuria: (3) Metabolic encephalopathy: (4) History of renal transplant: (5) History of liver transplant: (6) Morbid obesity with BMI of 40.0-44.9, adult: PLAN: Plan Hypertensive Emergency slightly improved. Continue home meds carvedilol 50 BID. Nifepipine 90/d, doxazosin 8/d. Add hydralazine 50 TID. PRN IV hydralazine NH3 less than 10 UTI: on CTX follow up UCx. Metabolic Encephalopathy 2/2 hypertensive emergency and UTI. B12 and folate WNL TSH slightly elevated. Check FT4. MRI brain ordered to rule out CVA. History of Left renal and liver transplants (2011); continue mycophenolate, tacrolimus and suppressive TMP/SMX () check tacrolimus level. Chronic conditions: Obesity class II: complicates care and recovery. DM-2;fair control on insulin glargine 20 units SQ twice daily and insulin lispro SSI AC/HS - ADA diet. FSBS q. AC/HS plus SSI. Check hemoglobin A1c to objectively assess quality of diabetic control. DVT prophylaxis - Heparin 5,000U sq TID Charges/Coding Visit Charges Inpatient E&M: 38876 Subs Hosp L2
[2024-10-15 09:54] LABS: Bedside Glucose 111 mg/dL (74-106)
--- NOTE | 2024-10-15 12:00 | CASEMGMT ---
JESSICA BREWER Assessment: RN CM noted confusion in Pt chart, called to do initial DC planning assessment. RN CM introduced self and role at [facility], pt voices understanding and consents to assessment. Care providers, pharmacy, and demographics verified/updated. Strata: 2 Admitting Dx: Hypertensive emergency, acute cystitis PCP: Natty Specialists: Renani, Pain Management; [facility] kidney and liver transplant team. Preferred Pharmacy: [facility] Insurance: [facility] Prescription Benefit: yes LNOK: , dillon; Son, Jono Living Arrangements: Pt lives with in a 1 level home with 6 steps to enter. ADLs: Pt I with ADLs, needs some assistance with IADLs Transportation: Pt provides transportation. DME: glucometer and supplies, cane, WC, BiPap, nebulizer, walker, walk-in in shower with built in seat. HHC/SNF: [facility] Previously had [facility] HHC. Pt states no concerns with going home at time of dc. Pt states no further concerns/needs. CM to follow. Advised pt to ask CM if any further question/concerns/needs arise, voices understanding. Pt Goal: TBD Plan: TBD, follow therapy for recommendations. Pt would like to take pt home, but unsure if she can manage pt at home. If therapy recommends SNF, [facility], [facility] is second preference. Daniel LOPEZ CM
[2024-10-15] MEDS: hydrALAZINE 50 MG Tablet PO ×2 (13:18→21:45)
[2024-10-15] MEDS: Tacrolimus Anhydrous 1 MG Capsule PO ×2 (13:18→21:47)
[2024-10-15 13:50] LABS: Bedside Glucose 148 mg/dL (74-106)
[2024-10-15 17:37] LABS: Bedside Glucose 144 mg/dL (74-106)
[2024-10-15] MEDS: Atorvastatin Calcium 40 MG Tablet PO (21:47)
[2024-10-15] MEDS: Montelukast 10 MG Tablet PO (21:47)
[2024-10-15] MEDS: Ceftriaxone 1 GM/50 ML BAG IV (21:52)
[2024-10-16] VITALS (9 sets, daily range): BP systolic 120–148; BP diastolic 65–84; PULSE 60–73; RESP 14–21; TEMP 36.7; O2SAT 94–99; BMI 39.4
[2024-10-16 01:17] LABS: Bedside Glucose 122 mg/dL (74-106)
[2024-10-16] MEDS: hydrALAZINE 50 MG Tablet PO ×2 (05:18→14:05)
[2024-10-16] MEDS: Heparin Injection (Vial) 5,000 UNIT/ML VIAL 5000 UNIT SC ×2 (05:18→14:05)
--- NOTE | 2024-10-16 07:17 | PN.HOSP_ITS ---
Reason for Visit Reason for Visit: Diagnoses Morbid (severe) obesity due to excess calories (10/14/24) Metabolic encephalopathy (10/14/24) Hypertensive emergency (10/14/24) Acute cystitis without hematuria (10/14/24) Body mass index [BMI] 40.0-44.9, adult (10/14/24) Personal history of transient ischemic attack (TIA), and cerebral infarction without residual deficits (10/14/24) Kidney transplant status (10/14/24) Liver transplant status (10/14/24) Subjective Subjective Still does not know the date. Objective Data Objective Data Vital Signs: Vital Signs Temp Pulse Resp BP Pulse Ox O2 Del Method FiO2 36.7 C 62 20 H 148/73 H 96 Bi-pap 28 10/16/24 03:32 10/16/24 05:18 10/16/24 04:14 10/16/24 05:18 10/16/24 04:14 10/16/24 03:34 10/16/24 04:14 Oxygen Delivery Method Bi-pap Weight: 124.7 kg Body Mass Index (BMI) 39.4 Intake & Output: Intake and Output for Last 24 Hours 10/14/24 10/15/24 10/16/24 23:59 23:59 23:59 Intake Total 1050 / 1050 1039 / 1159 360 / 360 Output Total 660 / 660 300 / 300 Balance 1050 / 1050 379 / 499 60 / 60 Lab / Micro Data 10/16/24 06:20 10/16/24 06:20 Labs: Laboratory Results - last 24 hr 10/14/24 19:30: Hemoglobin A1c 5.5 10/15/24 06:58: Sodium 143, Potassium 4.2, Chloride 113 H, Carbon Dioxide 24.0, Anion Gap 6, BUN 34 H, Creatinine 1.60 H, Estim Creat Clear Calc 55.30, Est GFR (MDRD) Af Amer 55 L, Est GFR (MDRD) Non-Af 45 L, BUN/Creatinine Ratio 21.2 H, G lucose 121 H, Calcium 8.9, Phosphorus 3.8, Magnesium 1.9, Total Bilirubin 0.60, AST 12 L, ALT 27, Alkaline Phosphatase 91, Troponin I High Sens 22, Total Protein 5.9 L, Albumin 3.3, Globulin 2.6, Albumin/Globulin Ratio 1.3 10/15/24 09:09: POC Glucose 111 H 10/15/24 13:17: POC Glucose 148 H 10/15/24 17:14: POC Glucose 144 H 10/15/24 21:32: POC Glucose 122 H Micro: Microbiology 10/14/24 20:10 Urine, Clean Catch Urine Culture - Preliminary Culture exhibits no growth. 10/14/24 20:20 Mucosa - Nose SARS-CoV-2, Influenza & RSV (PCR) - Final Radiography Diagnostic Testing: Radiology Impression Brain MRI 10/15/24 00:09 IMPRESSION: 1. Moderate generalized cerebral and cerebellar atrophy. 2. Prominent bilateral cerebral white matter changes, most consistent with chronic ischemic changes of small-vessel disease. 3. No acute process is evident. Reading Location: [address] Physical Exam Const alert and no apparent distress HEENT head/scalp atraumatic and moist oral mucous membranes Resp normal respiratory effort, no retractions, no use of accessory muscles and clear to auscultation bilaterally Cardio regular rate, regular rhythm, S1 normal heart sound and S2 normal heart sound GI normal to inspection, nondistended, normoactive bowel sounds, soft to palpation, non-tender, non-distended and hepatosplenomegaly Extremity normal to inspection Assessment & Plan Assessment/Plan (1) Hypertensive emergency: (2) Acute cystitis without hematuria: (3) Metabolic encephalopathy: (4) History of renal transplant: (5) History of liver transplant: PLAN: Plan Hypertensive Emergency * slightly improved. Continue home meds carvedilol 50 BID. Nifepipine 90/d, doxazosin 8/d. Add hydralazine 50 TID. * PRN IV hydralazine UTI: * on CTX * UCx showing mixed GPO. Metabolic Encephalopathy * 2/2 hypertensive emergency and UTI. * B12 and folate WNL * TSH slightly elevated. Check FT4. * MRI brain negative. Ammonia WNL History of Left renal and liver transplants (2011); * continue mycophenolate, tacrolimus and suppressive TMP/SMX (--) * check tacrolimus level. 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 * DM-2;fair control on insulin glargine 20 units SQ twice daily and insulin lispro SSI AC/HS - ADA diet. FSBS q. AC/HS plus SSI. Check hemoglobin A1c to objectively assess quality of diabetic control. DVT prophylaxis - Heparin 5,000U sq TID Disposition: plan on SNF. Charges/Coding Visit Charges Inpatient E&M: 07894 Subs Hosp L2
[2024-10-16 07:24] LABS: Absolute Lymphocyte Count 2.07 X10^3/uL (0.83-4.51); Absolute Neutrophil Count 3.5 X10^3/uL (2.0-7.7); Basophil# 0.01 X10^3/uL; Basophil% 0.2 % (0-1); Eosinophil# 0.24 X10^3/uL; Eosinophils% 3.8 % (0-5); Hematocrit 36.2 % (40-54); Hemoglobin 11.9 g/dL (13.0-16.5); Lymphocyte # 2.07 X10^3/ul (0.83-4.51); Lymphocyte % 32.6 % (19-41); Mean Corp Hgb Conc 32.9 g/dL (32-36); Mean Corpuscular Hgb 28.8 pg (27.0-32.0); Mean Corpuscular Volume 87.7 fL (80-94); Mean Platelet Vol. 10.4 fl (6.2-12.0); Monocyte# 0.48 X10^3/uL; Monocyte% 7.6 % (0-10); NRBC Flagged by Analyzer 0 % (0-5); Neutrophil # 3.51 X10^3/uL (2.7-7.7); Neutrophil % 55.3 % (47-70); Platelet Count 159 K/mm3 (150-450); RBC Distribution Width CV 13.8 % (11.6-14.6); RBC Distribution Width SD 43.8 fl (35.1-43.9); Red Blood Count 4.13 M/mm3 (4.6-6.2); White Blood Count 6.3 K/mm3 (4.4-11.0)
[2024-10-16 07:57] LABS: ALB/GLOB Ratio 1.3 RATIO (0.9-2.4); AST(SGOT) 10 U/L (15-37); Alanine Aminotransfer ALT/SGPT 23 U/L (16-61); Albumin, Serum 3.3 g/dL (3.2-5.0); Alkaline Phosphatase 90 U/L (45-117); Anion Gap 7 (5-15); BUN 43 mg/dL (7-18); BUN/Creat Ratio 22.2 RATIO (10-20); Calcium,Total 8.7 mg/dL (8.5-10.1); Chloride 112 mmol/L (98-107); Creatinine, Serum 1.94 mg/dL (0.70-1.30); EST Glomerular Filtration Rate 36 mL/min (>60); Est Glom Filt Rate - Afr Amer 44 mL/min (>60); Estimated Creatinine Clearance 45.61 ml/min; Globulin 2.6 g/dL (2.2-4.2); Glucose 112 mg/dL (74-106); Magnesium 2.1 mg/dL (1.6-2.6); Phosphorus 4.3 mg/dL (2.5-4.9); Protein, Total 5.9 g/dL (6.4-8.2); Sodium Level 143 mmol/L (136-145)
--- NOTE | 2024-10-16 09:37 | CASEMGMT ---
Discharge Planning A list of HH providers including quality and resource use data and consistent with the patient's preferred geographic region, medical needs, and insurance network was created in [facility] Guide.? This list was provided to the RN OSMAN. Izabella Alaniz, Discharge Planning Asst.
[2024-10-16] MEDS: Aspirin E.C. 81 MG Tablet PO (09:40)
[2024-10-16] MEDS: Smz/Tmp Ds Tablet 0.5 TABLET PO (09:41)
[2024-10-16] MEDS: Allopurinol 100 MG Tablet 200 MG PO (09:41)
[2024-10-16] MEDS: Mycophenolate Mofetil 250 MG Capsule 500 MG PO (09:41)
[2024-10-16] MEDS: Carvedilol 25 MG Tablet 50 MG PO (09:41)
[2024-10-16] MEDS: NIFEdipine 90 MG Tablet PO (09:41)
[2024-10-16] MEDS: Tolterodine Tartrate 2 MG CAP.SA PO (09:42)
[2024-10-16] MEDS: Doxazosin 4 MG Tablet 8 MG PO (09:42)
[2024-10-16] MEDS: Pantoprazole Sodium 40 MG Tablet PO (09:42)
[2024-10-16] MEDS: Clopidogrel Bisulfate 75 MG Tablet PO (09:42)
[2024-10-16] MEDS: Lactobacillis Acidophilus 1 CAP PO ×2 (09:42→14:05)
[2024-10-16] MEDS: Tacrolimus Anhydrous 1 MG Capsule PO (09:43)
[2024-10-16] MEDS: Menthol/Lanolin/Calamine/Znox 113 GM Tube 1 APPLIC TOPICAL (09:44)
[2024-10-16] MEDS: Insulin Glargine-YFGN 100 UNIT/ML Pen 12 UNIT SC (09:47)
[2024-10-16] MEDS: Insulin Lispro 100 UNIT/ML INSULN.PEN SC (09:48)
[2024-10-16 10:11] LABS: Bedside Glucose 167 mg/dL (74-106)
[2024-10-16 11:52] LABS: Bedside Glucose 139 mg/dL (74-106)
--- NOTE | 2024-10-16 13:00 | CASEMGMT ---
Addendum entered by Toya Escobar 10/16/24 14:49: RN CM received call back from [facility] and they are able to accept patient with start of care Monday. RN CM called and updated . had no further questions or concerns. RN CM updated discharge plan. Original Note: RN CM call to discuss needs at discharge. RN CM reviewed progress with therapy, 50ft standby. agreeable to have patient to return home. RN CM inquired about C. was agreeable to [facility] at discharge and prefers [facility], declined list. had no further questions or concerns. RN CM called [facility] and made referral, awaiting acceptance. CM will continue to follow this patient and plan for a safe discharge.
--- NOTE | 2024-10-16 13:47 | DS.PCM_ITS ---
Providers Date of Admission: 10/14/24 Primary Care Physician: Dr. Shanelle Luz DO Reason For Visit: HYPERTENSIVE EMERGENCY, ACUTE CYSTITIS; WITHOUT Diagnosis Discharge Diagnosis (1) Hypertensive emergency: Status: Acute Code(s): I16.1 - Hypertensive emergency (2) Acute cystitis without hematuria: Status: Acute Code(s): N30.00 - Acute cystitis without hematuria (3) Metabolic encephalopathy: Status: Acute Code(s): G93.41 - Metabolic encephalopathy (4) History of renal transplant: Status: Inactive Code(s): Z94.0 - Kidney transplant status (5) History of liver transplant: Status: Inactive Code(s): Z94.4 - Liver transplant status Plan Hypertensive Emergency * slightly improved. Continue home meds carvedilol 50 BID. Nifepipine 90/d, doxazosin 8/d. Add hydralazine 50 TID. UTI: * on CTX * UCx showing mixed GPO. * change abx to cephalexin upon discharge. Metabolic Encephalopathy * 2/2 hypertensive emergency and UTI. * B12 and folate WNL * TSH slightly elevated. Check FT4. * MRI brain negative. Ammonia WNL History of Left renal and liver transplants (2011); * continue mycophenolate, tacrolimus and suppressive TMP/SMX () * tacrolimus level still pending. 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 * DM-2;fair control on insulin glargine 20 units SQ twice daily and insulin lispro SSI AC/HS - ADA diet. FSBS q. AC/HS plus SSI. Check hemoglobin A1c to objectively assess quality of diabetic control. Disposition: to home with [facility]. Medications at Discharge Home Medications pantoprazole 40 mg tablet,delayed release (Protonix) 40 mg PO DAILY gerd 12/20/19 oxybutynin chloride 10 mg tablet,extended release 24 hr 10 mg PO DAILY bladder 03/29/20 aspirin 81 mg tablet,delayed release (Adult Low Dose Aspirin) 81 mg PO DAILY HEART HEALTH 04/15/20 zafirlukast 20 mg tablet (Accolate) 20 mg PO Q12H BREATHING 04/15/20 sulfamethoxazole 400 mg-trimethoprim 80 mg tablet 2 tab PO MOWEFR preventative atb 07/17/20 atorvastatin 40 mg tablet 40 mg PO QHS CHOLESTEROL #90 tabs 01/26/22 doxazosin 8 mg tablet 8 mg PO QAM bp #90 tabs 10/06/22 mycophenolate mofetil 250 mg capsule 500 mg PO BID Antirejection 11/02/22 carvedilol 25 mg tablet (Coreg) 50 mg PO BID BP 11/07/22 acetaminophen 500 mg tablet 1,000 mg (2 x 500 mg) PO Q6H PRN PRN Pain Score 1-5 #0 tabs 11/16/22 albuterol sulfate 2.5 mg/3 mL (0.083 %) solution for nebulization 2.5 mg (3 mL) inhalation Q2H PRN PRN SOB/Wheezing #0 mL 12/09/22 insulin glargine-yfgn 100 unit/mL (3 mL) subcutaneous pen 20 unit (0.2 mL) subcut BIDAC HYPERGLYCEMIA #0 mL 12/09/22 menthol 0.44 %-zinc oxide 20.6 % topical ointment (Calmoseptine) 1 applic topical BID AFFECTED AREA #0 grams 12/09/22 sennosides 8.6 mg-docusate sodium 50 mg tablet (Stool Softener-Stimulant Laxative) 2 tab PO DAILY PRN PRN CONSTIPATION #0 tabs 12/09/22 allopurinol 200 mg tablet 200 mg PO DAILY gout 01/26/23 oxycodone 10 mg tablet 10 mg PO Q12H PRN pain 01/26/23 clopidogrel 75 mg tablet 75 mg PO DAILY BLOOD THINNER #90 tabs 02/02/23 insulin lispro 100 unit/mL subcutaneous pen (Humalog KwikPen (U-100) Insulin) See Protocol subcut ACHS HYPERGLYCEMIA 10/14/24 montelukast 10 mg tablet 10 mg PO DAILY allergies 10/14/24 nifedipine 90 mg tablet,extended release 90 mg PO DAILY HTN 10/14/24 nystatin 100,000 unit/gram topical powder (Klayesta) 1 applic topical BID AFFECTED AREA 10/14/24 nystatin 100,000 unit/gram topical powder (Klayesta) 1 applic topical DAILY PRN skin irritation 10/14/24 prednisone 5 mg tablet 5 mg PO DAILY ANTIREJECTION 10/14/24 tacrolimus 1 mg capsule, immediate-release 1 mg PO BID TRANSPLANT 10/14/24 cephalexin 500 mg capsule 500 mg PO Q8H #15 caps 10/16/24 hydralazine 50 mg tablet 50 mg PO TID #90 tabs 10/16/24 Weight / BMI Weight Weight: 124.7 kg Body Mass Index (BMI) 39.4 ABG / Lab / Microbiology Data 10/16/24 06:20 10/16/24 06:20 Laboratory: Laboratory Results - last 24 hr 10/15/24 13:17: POC Glucose 148 H 10/15/24 17:14: POC Glucose 144 H 10/15/24 21:32: POC Glucose 122 H 10/16/24 06:20: WBC 6.3, RBC 4.13 L, Hgb 11.9 L, Hct 36.2 L, MCV 87.7, MCH 28.8, MCHC 32.9, RDW Std Deviation 43.8, RDW Coeff of Leonie 13.8, Plt Count 159, MPV 10.4, Immature Gran % (Auto) 0.500, Neut % (Auto) 55.3, Lymph % (Auto) 32.6, [place] % (Auto) 7.6, Eos % (Auto) 3.8, Baso % (Auto) 0.2, Absolute Neuts (auto) 3.5, Absolute Lymphs (auto) 2.07, Nucleated RBC % 0, Sodium 143, Potassium 4.0, Chloride 112 H, Carbon Dioxide 24.0, Anion Gap 7, BUN 43 H, Creatinine 1.94 H, Estim Creat Clear Calc 45.61, Est GFR (MDRD) Af Amer 44 L, Est GFR (MDRD) Non-Af 36 L, BUN/Creatinine Ratio 22.2 H, Glucose 112 H, Calcium 8.7, Phosphorus 4.3, Magnesium 2.1, Total Bilirubin 0.50, AST 10 L, ALT 23, Alkaline Phosphatase 90, Total Protein 5.9 L, Albumin 3.3, Globulin 2.6, Albumin/Globulin Ratio 1.3 10/16/24 09:27: POC Glucose 167 H 10/16/24 11:35: POC Glucose 139 H Microbiology: Microbiology 10/14/24 20:10 Urine, Clean Catch Urine Culture - Final Mixed Gram Positive Organisms 10/14/24 20:20 Mucosa - Nose SARS-CoV-2, Influenza & RSV (PCR) - Final Radiography Diagnostic Testing: Radiology Impression Brain MRI 10/15/24 00:09 IMPRESSION: 1. Moderate generalized cerebral and cerebellar atrophy. 2. Prominent bilateral cerebral white matter changes, most consistent with chronic ischemic changes of small-vessel disease. 3. No acute process is evident. Reading Location: [id number] Instructions Discharge Diet: Low fat / Low cholesterol DC O2, CPAP, BIPAP Needs PSN CPAP & BiPAP: BiPAP & CPAP Settings per PSN Mode BiPAP 10/16/24 04:14 Bipap Delivery Device Nasal Mask 10/16/24 04:14 BiPAP Inspiratory Pressure 13 10/16/24 04:14 BiPAP Expiratory Pressure 9 10/16/24 04:14 BiPAP Rate 14 10/16/24 04:14 Fraction of Inspired Oxygen ( 28 10/16/24 04:14 FIO2) Home O2 Discharge instructions: No Meaningful Use Info Meaningful Use Meaningful Use Diagnoses (Choose all that apply): None applicable Ischemic Stroke Statin Dosing Therapy Reference: STATIN DOSE THERAPY REFERENCE: * Patients > 75 years receive moderate or high dose statin therapy. * Patients 75 years or YOUNGER should receive HIGH intensity statin dose unless contraindicated. You will be required to document reason for non-treatment if statin daily dose does not meet guidelines. HIGH DOSE STATIN THERAPY DAILY Atorvastatin > than or = to 40 mg Rosuvastatin > than or = to 20 mg Amlodipine + Atorvastatin > than or = to 2.5/40 mg Ezetimibe + Simvastatin 10/80 mg Simvastatin 80mg Discharge Plan Admission Admit Date/Time: 10/14/24 23:21 Primary Reason for Your Visit: hypertensive urgency. Attending Provider: Robert Ortega Primary Care Provider: Shanelle Luz Consulting Providers: Dallin Dan Discharge Orders/Prescriptions Prescriptions: New hydralazine 50 mg Tablet 50 mg PO TID Qty: 90 0RF cephalexin 500 mg capsule 500 mg PO Q8H Qty: 15 0RF Continued pantoprazole [Protonix] 40 mg tablet,delayed release (DR/EC) 40 mg PO DAILY aspirin [Adult Low Dose Aspirin] 81 mg tablet,delayed release (DR/EC) 81 mg PO DAILY zafirlukast [Accolate] 20 mg tablet 20 mg PO Q12H Rx Instructions: administer 1 hour before or 2 hours after food or meals allopurinol 200 mg tablet 200 mg PO DAILY oxycodone 10 mg tablet 10 mg PO Q12H PRN (Reason: pain) oxybutynin chloride 10 MG tablet extended release 24hr 10 mg PO DAILY sulfamethoxazole-trimethoprim 400-80 mg tablet 2 tab PO Rx Instructions: take one tablet po every monday, monday, monday mycophenolate mofetil 250 mg capsule 500 mg PO BID Patient Comments: take 2 capsules by mouth twice a day carvedilol [Coreg] 25 mg tablet 50 mg PO BID Rx Instructions: must administer with a meal/food acetaminophen 500 mg Tablet 1,000 mg PO Q6H PRN PRN (Reason: Pain Score 1-5) Qty: 0 0RF albuterol sulfate 2.5 mg /3 mL (0.083 %) Solution For Nebulization 2.5 mg inhalation Q2H PRN PRN (Reason: SOB/Wheezing) Qty: 0 0RF insulin glargine-yfgn 100 unit/mL (3 mL) Insulin Pen 20 unit subcut BIDAC Qty: 0 0RF menthol-zinc oxide [Calmoseptine] 0.44-20.6 % Ointment 1 applic topical BID Qty: 0 0RF Protocol: *Topical Application Instructions APPLICATION INSTRUCTIONS: COCCYX sennosides-docusate sodium [Stool Softener-Stimulant Laxat] 8.6-50 mg Tablet 2 tab PO DAILY PRN PRN (Reason: CONSTIPATION) Qty: 0 0RF nystatin [Klayesta] 100,000 unit/gram powder 1 applic topical DAILY PRN (Reason: skin irritation) montelukast 10 mg tablet 10 mg PO DAILY nifedipine 90 mg tablet extended release 90 mg PO DAILY tacrolimus 1 mg capsule 1 mg PO BID prednisone 5 mg tablet 5 mg PO DAILY nystatin [Klayesta] 100,000 unit/gram powder 1 applic topical BID insulin lispro [Humalog KwikPen Insulin] 100 unit/mL Insulin Pen See Protocol subcut ACHS Protocol: 4. Sliding Scale Insulin High-Med Dosing Condition: 150-199 mg/dl = 2 units Condition: 200-259 mg/dl = 4 units Condition: 260-324 mg/dl = 6 units Condition: 325-374 mg/dl = 8 units Condition: 375-409 mg/dl = 10 units Condition: 410-449 mg/dl = 11 units Condition: Greater than 449 call physician Protocol Text: - Use for Total Daily Dose of Insulin 56-80 units - Patient who are insulin resistant or septic HIGH MEDIUM DOSING ALGORITHM Patient Comments: HAS NOT NEEDED NIGHT TIME DOSE OF INSULIN 10/14/2024 Rx Instructions: subcutaneously before meals and at bedtime; atorvastatin 40 mg tablet 40 mg PO QHS Qty: 90 3RF doxazosin 8 mg tablet 8 mg PO QAM Qty: 90 3RF clopidogrel 75 mg tablet 75 mg PO DAILY Qty: 90 3RF Referrals / Follow Up: Shanelle Luz DO [Primary Care Provider] - Within 2 Weeks Disposition Disposition (needs filled in before D/C Order can be placed): Home Health Service
--- NOTE | 2024-10-16 15:07 | NURSING ---
This nurse called pt Serina to go over dc instructions. will flower picker pt at main entrance in 30 minutes. All questions answered.
[2024-10-18 19:08] LABS: Tacrolimus (FK506) 8.4 ng/mL (5.0-20.0)
== END 2024-10-16 15:45 | disposition home health service (06) | DRG 304 ==
LOC: ED 22:09 → PCU 10-15 04:03
PROVIDERS: Admitting Provider Internal Medicine; Emergency Provider Emergency Medicine; PCP Internal Medicine
DX: I16.1 Hypertensive emergency (principal); G93.41 Metabolic encephalopathy; Z68.41 Body mass index [BMI] 40.0-44.9, adult; Z94.4 Liver transplant status; Z94.0 Kidney transplant status; N30.00 Acute cystitis without hematuria; E11.22 Type 2 diabetes mellitus with diabetic chronic kidney disease; I12.9 Hypertensive chronic kidney disease with stage 1 through stage 4 chronic kidney disease, or unspecified chronic kidney disease; N18.31 Chronic kidney disease, stage 3a; I16.0 Hypertensive urgency; E78.5 Hyperlipidemia, unspecified; K21.9 Gastro-esophageal reflux disease without esophagitis; I25.10 Atherosclerotic heart disease of native coronary artery without angina pectoris; E66.01 Morbid (severe) obesity due to excess calories; I45.10 Unspecified right bundle-branch block; I25.2 Old myocardial infarction; Z86.73 Personal history of transient ischemic attack (TIA), and cerebral infarction without residual deficits; G89.4 Chronic pain syndrome; Z82.0 Family history of epilepsy and other diseases of the nervous system; Z82.3 Family history of stroke; Z86.16 Personal history of COVID-19; E66.812 Obesity, class 2; N40.0 Benign prostatic hyperplasia without lower urinary tract symptoms
CPT/HCPCS: 36415; 70450; 70551; 71046; 80053; 80061; 80197; 81001; 82140; 82607; 82746; 82962; 83036; 83605; 83735; 84100; 84443; 84484; 85025; 87040; 87086; 87088; 87631; 93005; 94002; 94003; 94668; 94762; 97116; 97162; 97166; 97530; 97535; 97802; 99252; 99284; A4216; G0463

== ENCOUNTER 2024-11-18 11:06 | Emergency (ER) | payer MEDICARE, SELFPAY ==
[2020-07-29 07:35] VITALS: BMI 46.7
[2024-11-18 11:07] VITALS: BP 144/78; PULSE 55; RESP 16; TEMP 36.3; O2SAT 95
--- NOTE | 2024-11-18 11:09 | RAD_ITS ---
PROCEDURE: RIBS UNI MIN 3V W/PA CHEST REASON FOR EXAM: PAIN TECHNIQUE: 6 view left rib series to include the PA chest. COMPARISON: AP and lateral chest 10/14/2024. RAD/Ribs Uni Min 3V w/PA Chest IMPRESSION: Area of linear scarring of the right mid lung again seen. Mild areas of bibasilar atelectasis are noted, somewhat diminished on this some what better aerated examination, compared with the study of 10/14/2024. No evidence of pulmonary edema. No pleural effusion or pneumothorax is seen. The cardiomediastinal silhouette is unchanged, without evidence of cardiomegaly . Advanced arthritic changes are seen of the bilateral glenohumeral joints, left greater than right. Lumbar dextro rotoscoliosis is noted. Moderate degenerative changes of the visualized lower thoracic and lumbar spine is seen. No left rib fracture, dislocation, or other acute osseous change is noted. If clinical concern persists, short-term follow-up imaging may be obtained to r ule out a currently occult fracture. Reading Location: [id number]
--- NOTE | 2024-11-18 12:07 | ED.VIS.CHEST ---
HPI History of Present Illness Chief Complaint: Chest [facility] Medical History (Updated 10/24/24 @ 00:02 by Background Laura) Morbid obesity with BMI of 40.0-44.9, adult History of CVA (cerebrovascular accident) (06/2021) Diabetes mellitus, type 2 Coronary artery disease BPH (benign prostatic hyperplasia) Hyperlipidemia Gout Overactive bladder GERD (gastroesophageal reflux disease) Debility Immunosuppression Chronic kidney disease, stage 3a Morbid obesity Atherosclerotic heart disease of [place] coronary artery without angina pectoris History of non-ST elevation myocardial infarction (NSTEMI) (03/30/20) Essential (primary) hypertension Renal calculi Asthma Left renal artery stenosis Segmental and somatic dysfunction of lumbar region TIA (transient ischemic attack) GERD (gastroesophageal reflux disease) Chronic pain syndrome Obstructive sleep apnea Superficial thrombophlebitis Osteoarthritis Hydronephrosis End stage renal failure on dialysis Cirrhosis of liver Chronic nonalcoholic liver disease Anemia Home Medications ?Medication ?Instructions ?Recorded ?Last Taken ?Type pantoprazole 40 mg tablet,delayed 40 mg PO DAILY gerd 12/20/19 12/02/22 History release (Protonix) oxybutynin chloride 10 mg 10 mg PO DAILY bladder 03/29/20 12/02/22 History tablet,extended release 24 hr aspirin 81 mg tablet,delayed 81 mg PO DAILY HEART HEALTH 04/15/20 12/02/22 History release (Adult Low Dose Aspirin) zafirlukast 20 mg tablet (Accolate) 20 mg PO Q12H BREATHING 04/15/20 12/02/22 History sulfamethoxazole 400 2 tab PO MOWEFR preventative atb 07/17/20 12/02/22 History mg-trimethoprim 80 mg tablet atorvastatin 40 mg tablet 40 mg PO QHS CHOLESTEROL #90 tabs 01/26/22 12/02/22 Rx doxazosin 8 mg tablet 8 mg PO QAM bp #90 tabs 10/06/22 12/02/22 Rx mycophenolate mofetil 250 mg 500 mg PO BID Antirejection 11/02/22 12/02/22 History capsule carvedilol 25 mg tablet (Coreg) 50 mg PO BID BP 11/07/22 12/02/22 History acetaminophen 500 mg tablet 1,000 mg (2 x 500 mg) PO Q6H PRN 11/16/22 Unknown Rx PRN Pain Score 1-5 #0 tabs albuterol sulfate 2.5 mg/3 mL 2.5 mg (3 mL) inhalation Q2H PRN 12/09/22 Unknown Rx (0.083 %) solution for nebulization PRN SOB/Wheezing #0 mL insulin glargine-yfgn 100 unit/mL 20 unit (0.2 mL) subcut BIDAC 12/09/22 Unknown Rx (3 mL) subcutaneous pen HYPERGLYCEMIA #0 mL menthol 0.44 %-zinc oxide 20.6 % 1 applic topical BID AFFECTED AREA 12/09/22 Unknown Rx topical ointment (Calmoseptine) #0 grams sennosides 8.6 mg-docusate sodium 2 tab PO DAILY PRN PRN 12/09/22 Unknown Rx 50 mg tablet (Stool CONSTIPATION #0 tabs Softener-Stimulant Laxative) allopurinol 200 mg tablet 200 mg PO DAILY gout 01/26/23 Unknown History oxycodone 10 mg tablet 10 mg PO Q12H PRN pain 01/26/23 Unknown History clopidogrel 75 mg tablet 75 mg PO DAILY BLOOD THINNER #90 02/02/23 Unknown Rx tabs insulin lispro 100 unit/mL See Protocol subcut ACHS 10/14/24 Unknown History subcutaneous pen (Humalog KwikPen HYPERGLYCEMIA (U-100) Insulin) montelukast 10 mg tablet 10 mg PO DAILY allergies 10/14/24 Unknown History nifedipine 90 mg tablet,extended 90 mg PO DAILY HTN 10/14/24 Unknown History release nystatin 100,000 unit/gram topical 1 applic topical BID AFFECTED AREA 10/14/24 Unknown History powder (Klayesta) nystatin 100,000 unit/gram topical 1 applic topical DAILY PRN skin 10/14/24 Unknown History powder (Klayesta) irritation prednisone 5 mg tablet 5 mg PO DAILY ANTIREJECTION 10/14/24 Unknown History tacrolimus 1 mg capsule, 1 mg PO BID TRANSPLANT 10/14/24 Unknown History immediate-release cephalexin 500 mg capsule 500 mg PO Q8H #15 caps 10/16/24 Unknown Rx hydralazine 50 mg tablet 50 mg PO TID #90 tabs 10/16/24 Unknown Rx Allergy/AdvReac Type Severity Reaction Status Date / Time metformin Allergy Other Verified 11/18/24 11:09 pregabalin (From Lyrica) Allergy Other Verified 11/18/24 11:09 Family History Grandmother PGM diabetes Paternal GM. Father Heart disease CVA (cerebral vascular accident) Hypertension Mother Parkinson disease Surgical History (Updated 10/24/24 @ 00:02 by Background Daemon) History of renal transplant History of liver transplant History of kidney transplant History of liver transplant Kidney transplant recipient History of left heart catheterization (04/03/20) History of stent insertion of renal artery (2014) History of knee replacement Liver transplant recipient (07/13/12) Kidney transplant recipient (07/13/12) Social History household members: spouse housing: house Smoking Status: Never smoker second hand exposure: No alcohol intake: never substance use type: does not use caffeine: Yes frequency: 3-4 times per week EXAM Physical Exam Const Vital Signs: 11/18/24 11:07 11/18/24 12:29 Temperature 97.3 F L 98.2 F Temperature Source Temporal Pulse Rate 55 L 78 Respiratory Rate 16 18 Blood Pressure 144/78 H 125/67 H Blood Pressure Mean 100 86 Pulse Ox 95 97 Oxygen Delivery Method Room Air MDM MDM MDM Narrative Medical decision making narrative: HISTORY OF PRESENT ILLNESS: 73-year-old male presents with left-sided rib pain. He states there is been no inciting event. No fall or trauma. Notes 2 days ago he did stretch which may have incited the pain. Denies chest pain or shortness of breath. Notes intermittent left-sided rib pain. States he cannot massage make the pain any better. Notes he took Tylenol and I oxycodone at home without relief. REVIEW OF SYSTEMS: Pertinent positives: Rib pain Pertinent negatives: Hemoptysis PHYSICAL EXAM: Nursing triage notes reviewed, Vital signs reviewed Constitutional: please see mdm HENT: MMM Eyes: Pupils equal round and reactive to light, Extraocular muscles intact Neck: No stridor, no JVD, full neck ROM Lungs: Clear to auscultation, No wheezing or rales. No increased work of breathing, no conversational dyspnea, no accessory muscle use, no nasal flaring. No respiratory distress noted. TTP over left rib margin. No flail chest. Heart: Regular rate and rhythm, No murmurs, No rubs and No gallops, 2+ distal pulses (radial, femoral, posterior tibial) in all extremities Abdomen: Soft, there is no tenderness, rigidity, rebound or guarding, no obvious peritoneal signs, no palpable pulsatile abdominal masses, no auscultated abdominal bruit : No CVAT Extremities: No edema Neuro: No new focal neurological deficits, cranial nerves II through XII intact, 5/5 strength in all present extremities. Intact sensation to light touch in all present extremities, 2+ reflexes bilateral patella tendons. Skin: No rash or lesions noted MEDICAL DECISION MAKING: Chief Complaint: Left rib pain History obtained from others: Caregiver Consults: none MDM Narrative: Patient was initially hemodynamically stable, afebrile and nontoxic-appearing saturating on percent room air I considered the following differential diagnosis: Rib contusion, pneumothorax, rib strain ALL IMAGES (IF OBTAINED) HAVE BEEN PERSONALLY REVIEWED AND INTERPRETED BY MYSELF. X-ray was obtained in triage. X-ray was read reviewed personally so showed no evidence of obvious rib fracture pneumothorax. Patient likely suffering from a musculoskeletal injury. Will give incentive spirometer and strict return precautions. The patient and/or family, caregivers express understanding. The patient and/or family, caregivers agrees with the plan. Shared decision making: I will have a discussion with the patient and or visitors regarding risk/benefits of further testing or admission. They will be made aware of of the risk/benefits inherent in this decision they will be given the opportunity to voice understanding. Total critical care time today provided was at least 0 minutes. This excludes separately billable procedures. Critical care time (if documented) is secondary to the patient having high probability of clinically significant/life threatening deterioration in the patient's condition which required my urgent intervention. Impression: 1. Acute left rib pain Dispo: Discharge This note was generated with SCOUPY dictation software. It may contain incorrect words, spelling, and punctuation that were not noted in review of the chart prior to signing. Radiography Diagnostic Testing: Clinical Impression(s) from Imaging Studies Ribs w/Chest X-Ray 11/18/24 11:09 IMPRESSION: Area of linear scarring of the right mid lung again seen. Mild areas of bibasilar atelectasis are noted, somewhat diminished on this somewhat better aerated examination, compared with the study of 10/14/2024. No evidence of pulmonary edema. No pleural effusion or pneumothorax is seen. The cardiomediastinal silhouette is unchanged, without evidence of cardiomegaly. Advanced arthritic changes are seen of the bilateral glenohumeral joints, left greater than right. Lumbar dextro rotoscoliosis is noted. Moderate degenerative changes of the visualized lower thoracic and lumbar spine is seen. No left rib fracture, dislocation, or other acute osseous change is noted. If clinical concern persists, short-term follow-up imaging may be obtained to rule out a currently occult fracture. Reading Location: [address] Discharge Plan Triage Chief Complaint: Chest Other ED Provider: Clinton Scanlon Dx/Rx/DC Orders Instructions: ED Bruise, Rib Prescriptions: No Action pantoprazole [Protonix] 40 mg tablet,delayed release (DR/EC) 40 mg PO DAILY aspirin [Adult Low Dose Aspirin] 81 mg tablet,delayed release (DR/EC) 81 mg PO DAILY zafirlukast [Accolate] 20 mg tablet 20 mg PO Q12H Rx Instructions: administer 1 hour before or 2 hours after food or meals allopurinol 200 mg tablet 200 mg PO DAILY oxycodone 10 mg tablet 10 mg PO Q12H PRN (Reason: pain) oxybutynin chloride 10 MG tablet extended release 24hr 10 mg PO DAILY sulfamethoxazole-trimethoprim 400-80 mg tablet 2 tab PO MOWE Rx Instructions: take one tablet po every monday, monday, monday mycophenolate mofetil 250 mg capsule 500 mg PO BID Patient Comments: take 2 capsules by mouth twice a day carvedilol [Coreg] 25 mg tablet 50 mg PO BID Rx Instructions: must administer with a meal/food acetaminophen 500 mg Tablet 1,000 mg PO Q6H PRN PRN (Reason: Pain Score 1-5) Qty: 0 0RF albuterol sulfate 2.5 mg /3 mL (0.083 %) Solution For Nebulization 2.5 mg inhalation Q2H PRN PRN (Reason: SOB/Wheezing) Qty: 0 0RF insulin glargine-yfgn 100 unit/mL (3 mL) Insulin Pen 20 unit subcut BIDAC Qty: 0 0RF menthol-zinc oxide [Calmoseptine] 0.44-20.6 % Ointment 1 applic topical BID Qty: 0 0RF Protocol: *Topical Application Instructions APPLICATION INSTRUCTIONS: COCCYX sennosides-docusate sodium [Stool Softener-Stimulant Laxat] 8.6-50 mg Tablet 2 tab PO DAILY PRN PRN (Reason: CONSTIPATION) Qty: 0 0RF nystatin [Klayesta] 100,000 unit/gram powder 1 applic topical DAILY PRN (Reason: skin irritation) montelukast 10 mg tablet 10 mg PO DAILY nifedipine 90 mg tablet extended release 90 mg PO DAILY tacrolimus 1 mg capsule 1 mg PO BID prednisone 5 mg tablet 5 mg PO DAILY nystatin [Klayesta] 100,000 unit/gram powder 1 applic topical BID insulin lispro [Humalog KwikPen Insulin] 100 unit/mL Insulin Pen See Protocol subcut [facility] Protocol: 4. Sliding Scale Insulin High-Med Dosing Condition: 150-199 mg/dl = 2 units Condition: 200-259 mg/dl = 4 units Condition: 260-324 mg/dl = 6 units Condition: 325-374 mg/dl = 8 units Condition: 375-409 mg/dl = 10 units Condition: 410-449 mg/dl = 11 units Condition: Greater than 449 call physician Protocol Text: - Use for Total Daily Dose of Insulin 56-80 units - Patient who are insulin resistant or septic HIGH MEDIUM DOSING ALGORITHM Patient Comments: HAS NOT NEEDED NIGHT TIME DOSE OF INSULIN 10/14/2024 Rx Instructions: subcutaneously before meals and at bedtime; hydralazine 50 mg Tablet 50 mg PO TID Qty: 90 0RF cephalexin 500 mg capsule 500 mg PO Q8H Qty: 15 0RF atorvastatin 40 mg tablet 40 mg PO QHS Qty: 90 3RF doxazosin 8 mg tablet 8 mg PO QAM Qty: 90 3RF clopidogrel 75 mg tablet 75 mg PO DAILY Qty: 90 3RF Primary Care Provider: Shanelle Luz Referrals: Shanelle Luz DO [Primary Care Provider] - Activity Restrictions/Additional Instructions: Thank you for trusting us with your care today! Your x-ray was negative for deeper injury. Please take Tylenol (2 pills, 650 mg), ibuprofen (2 pills, 400 mg) every 6 hours as needed for pain and fever control. Please return to the emergency department if your symptoms change or worsen. Please follow with your primary care physician for further outpatient evaluation and management. Print Language: Faroese Disposition Disposition: Home, Self Care Discharge Date/Time: 11/18/24 12:38
[2024-11-18] MEDS: Ibuprofen 200 MG Tablet 400 MG PO (12:16)
[2024-11-18 12:29] VITALS: BP 125/67; PULSE 78; RESP 18; TEMP 36.8; O2SAT 97
== END 2024-11-18 12:38 | disposition home or self-care (01) ==
PROVIDERS: Emergency Provider Emergency Medicine; PCP Internal Medicine; Visit Provider Emergency Medicine
DX: R07.81 Pleurodynia (principal); N18.6 End stage renal disease; I12.0 Hypertensive chronic kidney disease with stage 5 chronic kidney disease or end stage renal disease; Z94.4 Liver transplant status; E11.22 Type 2 diabetes mellitus with diabetic chronic kidney disease; I25.10 Atherosclerotic heart disease of native coronary artery without angina pectoris; E78.5 Hyperlipidemia, unspecified; Z86.73 Personal history of transient ischemic attack (TIA), and cerebral infarction without residual deficits; I25.2 Old myocardial infarction; K21.9 Gastro-esophageal reflux disease without esophagitis; Z94.0 Kidney transplant status
CPT/HCPCS: 71101; 99282

== ENCOUNTER → 2025-01-07 | Outpatient (CLI) | payer MEDICARE, SELFPAY ==
[2020-07-29 07:35] VITALS: BMI 46.7
[2025-01-07 21:58] LABS: Amphetamine Urine NEGATIVE (<1000 ng/mL); Barbiturate Urine NEGATIVE (< 200 ng/mL); Benzodiazepine Urine NEGATIVE (< 200 ng/mL); Buprenorphine Urine NEGATIVE (< 200 ng/mL); Cocaine Urine NEGATIVE (< 300 ng/mL); Fentanyl, Urine NEGATIVE; Methadone Urine NEGATIVE (< 300 ng/mL); Opiates Urine NEGATIVE (< 300 ng/mL); Oxycodone, Urine PRESUMPTIVE POSITIVE (< 100 ng/mL); PCP Urine NEGATIVE (< 25 ng/mL); THC Urine PRESUMPTIVE POSITIVE (< 50 ng/mL)
== END | disposition home or self-care (01) ==
LOC: LAB 13:25
PROVIDERS: PCP Internal Medicine; Referring Provider Anesthesiology Pain Medicine; Visit Provider Anesthesiology Pain Medicine
DX: F11.20 Opioid dependence, uncomplicated (principal)
CPT/HCPCS: 80307

== ENCOUNTER 2025-04-03 12:18 | Emergency (ER) | payer MEDICARE, SELFPAY ==
[2020-07-29 07:35] VITALS: BMI 46.7
[2025-04-03 12:19] VITALS: BP 123/73; PULSE 52; RESP 14; TEMP 36.1; O2SAT 98
[2025-04-03 12:21] VITALS: BMI 47.7
--- NOTE | 2025-04-03 14:07 | US_ITS ---
PROCEDURE: TESTICULAR WITH ARTERIAL FLOW 04/03/2025 REASON FOR EXAM: SCROTAL SWELLING The patient is status post right orchiectomy. TECHNIQUE: TESTICULAR WITH ARTERIAL FLOW COMPARISON: None FINDINGS: LEFT testicle: 3.5 cm x 2.6 cm x 2.6 cm Left epididymis: 0.8 cm x 0.9 cm 0.9 cm Other findings: Moderate-sized left hydrocele. Diffuse subcutaneous edema of both scrotum. Adjacent to the left testicle, there is a 6.8 cm 5.3 cm 4.3 cm complex hypoechoic density. This may represent changes 2 chronic epididymitis. US/Testicular with Arterial Flow IMPRESSION: Status post right orchiectomy. Diffuse subcutaneous swelling of both scrotum spur. Complex hypoechoic density adjacent to the left testicle. This may represent e nlarged chronic epididymis. Reading Location: [id number]
--- NOTE | 2025-04-03 14:07 | EX.ED.GUMALE ---
HPI History of Present Illness Chief Complaint: Male Pain/Injury Narrative Narrative: 74-year-old male past medical history of remote kidney and liver transplantation presents with scrotal edema that has had for at least 4 days. He relates remote history of right orchiectomy as well. He states that his entire scrotum has been swollen twice its normal size. He denies any fevers or chills, no exacerbating or alleviating factors. He states that he wanted to follow-up with urologist, but when he called they were 30 days out. Essentially, he admittedly presents to try and get a referral to urology for his scrotal edema. [facility] Medical History Morbid obesity with BMI of 40.0-44.9, adult History of CVA (cerebrovascular accident) (06/2021) Diabetes mellitus, type 2 Coronary artery disease BPH (benign prostatic hyperplasia) Hyperlipidemia Gout Overactive bladder GERD (gastroesophageal reflux disease) Debility Immunosuppression Chronic kidney disease, stage 3a Morbid obesity Atherosclerotic heart disease of [place] coronary artery without angina pectoris History of non-ST elevation myocardial infarction (NSTEMI) (03/30/20) Essential (primary) hypertension Renal calculi Asthma Left renal artery stenosis Segmental and somatic dysfunction of lumbar region TIA (transient ischemic attack) GERD (gastroesophageal reflux disease) Chronic pain syndrome Obstructive sleep apnea Superficial thrombophlebitis Osteoarthritis Hydronephrosis End stage renal failure on dialysis Cirrhosis of liver Chronic nonalcoholic liver disease Anemia Home Medications ?Medication ?Instructions ?Recorded ?Last Taken ?Type pantoprazole 40 mg tablet,delayed 40 mg PO DAILY gerd 12/20/19 12/02/22 History release (Protonix) oxybutynin chloride 10 mg 10 mg PO DAILY bladder 03/29/20 12/02/22 History tablet,extended release 24 hr aspirin 81 mg tablet,delayed 81 mg PO DAILY HEART HEALTH 04/15/20 12/02/22 History release (Adult Low Dose Aspirin) zafirlukast 20 mg tablet (Accolate) 20 mg PO Q12H BREATHING 04/15/20 12/02/22 History sulfamethoxazole 400 2 tab PO MOWEFR preventative atb 07/17/20 12/02/22 History mg-trimethoprim 80 mg tablet atorvastatin 40 mg tablet 40 mg PO QHS CHOLESTEROL #90 tabs 01/26/22 12/02/22 Rx doxazosin 8 mg tablet 8 mg PO QAM bp #90 tabs 10/06/22 12/02/22 Rx mycophenolate mofetil 250 mg 500 mg PO BID Antirejection 11/02/22 12/02/22 History capsule carvedilol 25 mg tablet (Coreg) 50 mg PO BID BP 11/07/22 12/02/22 History acetaminophen 500 mg tablet 1,000 mg (2 x 500 mg) PO Q6H PRN 11/16/22 Unknown Rx PRN Pain Score 1-5 #0 tabs albuterol sulfate 2.5 mg/3 mL 2.5 mg (3 mL) inhalation Q2H PRN 12/09/22 Unknown Rx (0.083 %) solution for nebulization PRN SOB/Wheezing #0 mL insulin glargine-yfgn 100 unit/mL 20 unit (0.2 mL) subcut BIDAC 12/09/22 Unknown Rx (3 mL) subcutaneous pen HYPERGLYCEMIA #0 mL menthol 0.44 %-zinc oxide 20.6 % 1 applic topical BID AFFECTED AREA 12/09/22 Unknown Rx topical ointment (Calmoseptine) #0 grams sennosides 8.6 mg-docusate sodium 2 tab PO DAILY PRN PRN 12/09/22 Unknown Rx 50 mg tablet (Stool CONSTIPATION #0 tabs Softener-Stimulant Laxative) allopurinol 200 mg tablet 200 mg PO DAILY gout 01/26/23 Unknown History oxycodone 10 mg tablet 10 mg PO Q12H PRN pain 01/26/23 Unknown History clopidogrel 75 mg tablet 75 mg PO DAILY BLOOD THINNER #90 02/02/23 Unknown Rx tabs insulin lispro 100 unit/mL See Protocol subcut ACHS 10/14/24 Unknown History subcutaneous pen (Humalog KwikPen HYPERGLYCEMIA (U-100) Insulin) montelukast 10 mg tablet 10 mg PO DAILY allergies 10/14/24 Unknown History nifedipine 90 mg tablet,extended 90 mg PO DAILY HTN 10/14/24 Unknown History release nystatin 100,000 unit/gram topical 1 applic topical BID AFFECTED AREA 10/14/24 Unknown History powder (Klayesta) nystatin 100,000 unit/gram topical 1 applic topical DAILY PRN skin 10/14/24 Unknown History powder (Klayesta) irritation prednisone 5 mg tablet 5 mg PO DAILY ANTIREJECTION 10/14/24 Unknown History tacrolimus 1 mg capsule, 1 mg PO BID TRANSPLANT 10/14/24 Unknown History immediate-release cephalexin 500 mg capsule 500 mg PO Q8H #15 caps 10/16/24 Unknown Rx hydralazine 50 mg tablet 50 mg PO TID #90 tabs 10/16/24 Unknown Rx Allergy/AdvReac Type Severity Reaction Status Date / Time metformin Allergy Other Verified 04/03/25 12:19 pregabalin (From Lyrica) Allergy Other Verified 04/03/25 12:19 Family History Grandmother PGM diabetes Paternal GM. Father Heart disease CVA (cerebral vascular accident) Hypertension Mother Parkinson disease Surgical History History of renal transplant History of liver transplant History of kidney transplant History of liver transplant Kidney transplant recipient History of left heart catheterization (04/03/20) History of stent insertion of renal artery (2014) History of knee replacement Liver transplant recipient (07/13/12) Kidney transplant recipient (07/13/12) Social History household members: spouse housing: house Smoking Status: Never smoker second hand exposure: No alcohol intake: never substance use type: does not use caffeine: Yes frequency: 3-4 times per week ROS ROS ED ROS Narrative Review of systems positive for scrotal swelling. No fevers or chills, no other symptoms. EXAM Physical Exam Narrative Exam Narrative: Chaperoned examination reveals positive scrotal edema with no testicular tenderness. Abdomen soft and nontender without guarding or rebound. Awake, alert, nontoxic-appearing. Cardiovascular examination reveals mild bradycardia. Lungs clear to auscultation bilaterally. Const Vital Signs: 04/03/25 12:19 Temperature 96.9 F L Temperature Source Temporal Pulse Rate 52 L Respiratory Rate 14 Blood Pressure 123/73 H Blood Pressure Mean 89 Pulse Ox 98 Oxygen Delivery Method Room Air MDM MDM MDM Narrative Medical decision making narrative: The differential diagnosis includes but not limited to hydrocele versus varicocele versus scrotal edema that is dependent. I have low clinical suspicion for Arley's gangrene or cellulitis as on examination there is no crepitance, and there is no erythema to the scrotum. I do not feel antibiotics are indicated. Ultrasound of the scrotum was obtained and he is status post right orchiectomy. There is diffuse subcutaneous swelling of the bilateral scrotum. I do not feel that Lasix is indicated as he is a kidney transplant. At this point in time, feel he can be discharged to follow-up with urology and his primary care provider. He is to see a urologist at [facility] remotely. He was told to follow-up with them, and he was also referred to urology here. Return instructions to the emergency department were reviewed. Disposition is discharged home in stable condition. History & Record Review Discussion w/independent historian: Patient Radiography Diagnostic Testing: Clinical Impression(s) from Imaging Studies Testicular Ultrasound 04/03/25 14:07 IMPRESSION: Status post right orchiectomy. Diffuse subcutaneous swelling of both scrotum spur. Complex hypoechoic density adjacent to the left testicle. This may represent enlarged chronic epididymis. Reading Location: [id number] Discharge Plan Triage Chief Complaint: Male Pain/Injury ED Provider: Ramos Salmon Dx/Rx/DC Orders Clinical Impression: Scrotal edema, History of liver transplant, History of renal transplant Instructions: ED Symptoms Uncertain Cause Prescriptions: No Action pantoprazole [Protonix] 40 mg tablet,delayed release (DR/EC) 40 mg PO DAILY aspirin [Adult Low Dose Aspirin] 81 mg tablet,delayed release (DR/EC) 81 mg PO DAILY zafirlukast [Accolate] 20 mg tablet 20 mg PO Q12H Rx Instructions: administer 1 hour before or 2 hours after food or meals allopurinol 200 mg tablet 200 mg PO DAILY oxycodone 10 mg tablet 10 mg PO Q12H PRN (Reason: pain) oxybutynin chloride 10 MG tablet extended release 24hr 10 mg PO DAILY sulfamethoxazole-trimethoprim 400-80 mg tablet 2 tab PO MOWE Rx Instructions: take one tablet po every monday, monday, monday mycophenolate mofetil 250 mg capsule 500 mg PO BID Patient Comments: take 2 capsules by mouth twice a day carvedilol [Coreg] 25 mg tablet 50 mg PO BID Rx Instructions: must administer with a meal/food acetaminophen 500 mg Tablet 1,000 mg PO Q6H PRN PRN (Reason: Pain Score 1-5) Qty: 0 0RF albuterol sulfate 2.5 mg /3 mL (0.083 %) Solution For Nebulization 2.5 mg inhalation Q2H PRN PRN (Reason: SOB/Wheezing) Qty: 0 0RF insulin glargine-yfgn 100 unit/mL (3 mL) Insulin Pen 20 unit subcut BIDAC Qty: 0 0RF menthol-zinc oxide [Calmoseptine] 0.44-20.6 % Ointment 1 applic topical BID Qty: 0 0RF Protocol: *Topical Application Instructions APPLICATION INSTRUCTIONS: COCCYX sennosides-docusate sodium [Stool Softener-Stimulant Laxat] 8.6-50 mg Tablet 2 tab PO DAILY PRN PRN (Reason: CONSTIPATION) Qty: 0 0RF nystatin [Klayesta] 100,000 unit/gram powder 1 applic topical DAILY PRN (Reason: skin irritation) montelukast 10 mg tablet 10 mg PO DAILY nifedipine 90 mg tablet extended release 90 mg PO DAILY tacrolimus 1 mg capsule 1 mg PO BID prednisone 5 mg tablet 5 mg PO DAILY nystatin [Klayesta] 100,000 unit/gram powder 1 applic topical BID insulin lispro [Humalog KwikPen Insulin] 100 unit/mL Insulin Pen See Protocol subcut ACHS Protocol: 4. Sliding Scale Insulin High-Med Dosing Condition: 150-199 mg/dl = 2 units Condition: 200-259 mg/dl = 4 units Condition: 260-324 mg/dl = 6 units Condition: 325-374 mg/dl = 8 units Condition: 375-409 mg/dl = 10 units Condition: 410-449 mg/dl = 11 units Condition: Greater than 449 call physician Protocol Text: - Use for Total Daily Dose of Insulin 56-80 units - Patient who are insulin resistant or septic HIGH MEDIUM DOSING ALGORITHM Patient Comments: HAS NOT NEEDED NIGHT TIME DOSE OF INSULIN 10/14/2024 Rx Instructions: subcutaneously before meals and at bedtime; hydralazine 50 mg Tablet 50 mg PO TID Qty: 90 0RF cephalexin 500 mg capsule 500 mg PO Q8H Qty: 15 0RF atorvastatin 40 mg tablet 40 mg PO QHS Qty: 90 3RF doxazosin 8 mg tablet 8 mg PO QAM Qty: 90 3RF clopidogrel 75 mg tablet 75 mg PO DAILY Qty: 90 3RF Primary Care Provider: Shanelle Luz Referrals: Efraín Walker MD [Med Staff - Active Staff] - As soon as possible Shanelle Luz DO [Primary Care Provider] - 3-5 Days Activity Restrictions/Additional Instructions: Follow-up with your primary care provider. You may want to follow-up with urology as well. Print Language: Syriac Disposition Disposition: Home, Self Care
[2025-04-03 16:06] VITALS: BP 123/73; PULSE 52; RESP 14; TEMP 36.1; O2SAT 98
== END 2025-04-03 16:12 | disposition home or self-care (01) ==
PROVIDERS: Emergency Provider Emergency Medicine; PCP Internal Medicine; Visit Provider Emergency Medicine
DX: N50.89 Other specified disorders of the male genital organs (principal); N18.6 End stage renal disease; I12.0 Hypertensive chronic kidney disease with stage 5 chronic kidney disease or end stage renal disease; E11.22 Type 2 diabetes mellitus with diabetic chronic kidney disease; Z79.4 Long term (current) use of insulin; E78.5 Hyperlipidemia, unspecified; I25.10 Atherosclerotic heart disease of native coronary artery without angina pectoris; Z94.0 Kidney transplant status; Z86.73 Personal history of transient ischemic attack (TIA), and cerebral infarction without residual deficits; I25.2 Old myocardial infarction; Z99.2 Dependence on renal dialysis; K21.9 Gastro-esophageal reflux disease without esophagitis; Z79.899 Other long term (current) drug therapy; Z79.02 Long term (current) use of antithrombotics/antiplatelets; M10.9 Gout, unspecified; Z96.659 Presence of unspecified artificial knee joint
CPT/HCPCS: 76870; 93976; 99282

== ENCOUNTER → 2025-07-09 | Outpatient (CLI) | payer MEDICARE, SELFPAY ==
[2020-07-29 07:35] VITALS: BMI 46.7
--- NOTE | 2025-07-09 16:27 | US_ITS ---
PROCEDURE: TESTICULAR WITH ARTERIAL FLOW 07/09/2025 REASON FOR EXAM: SCROTAL PAIN TECHNIQUE: Procedure Code: USTES Modality: US Procedure: TESTICULAR WITH ARTERIAL FLOW COMPARISON: None FINDINGS: RIGHT testicle: Surgically absent LEFT testicle: 4.1 x 3.7 x 2.5 cm. Echotexture of the testis is normal. No mass. Epididymis is unremarkable. Color and spectral Doppler flow is present. Small echogenic scrotal john is seen along with small hydrocele. Echogenic mass is seen adjacent to the left testis possibly representing some herniated fat. Technologist measured this at 6.5 x 7.2 x 3.8 cm. Some flow is present but this is not excessive. Other findings: Scrotal edema, thickening. No gas seen. No collection identified. US/Testicular with Arterial Flow IMPRESSION: 1. Right orchiectomy 2. Normal left testis. Flow is present. Small hydrocele. 3. Echogenic extratesticular possibly fat from hernia. Correlate with the exa m. Consider CT scan of the pelvis. 4. Scrotal wall thickening, edema. Reading Location: [id number]
== END | disposition home or self-care (01) ==
LOC: US 16:25
PROVIDERS: PCP Internal Medicine; Referring Provider Urology; Visit Provider Urology
DX: N50.82 Scrotal pain (principal)
CPT/HCPCS: 76870; 93976

== ENCOUNTER → 2025-07-24 | Outpatient (CLI) | payer MEDICARE, SELFPAY ==
[2020-07-29 07:35] VITALS: BMI 46.7
--- NOTE | 2025-07-24 17:48 | CT_ITS ---
PROCEDURE: PELVIS WITHOUT IV CONTRAST 07/24/2025 REASON FOR EXAM: SCROTAL PAIN TECHNIQUE: Procedure Code: CTPEL Modality: CT Procedure: PELVIS WITHOUT IV CONTRAST CT of the pelvis is performed without the use of intravenous contrast. Axial sagittal and coronal reformatted images are submitted for interpretation. RADIATION DOSE SUMMARY: CTDlvol: 28.11 mGy DLP: 1524.28 mGycm COMPARISON: None FINDINGS: The patient is status post right orchiectomy. Surgical clips are seen in the right inguinal canal and the right hemiscrotum. Left testicle is slightly atrophic. Hydrocele is present. Fat containing right inguinal hernia is noted. There is no incarceration. The left inguinal canal is normal. Postsurgical changes are present in the anterior abdominal wall. Bladder: Normal Ureters: No distal urolithiasis. Normal caliber. Prostate: Small Bowel: No obstructive pattern. Few scattered diverticula are noted in the colon. There is no obstructive pattern. Appendix: Surgical clips overlie the base of the appendix. This may be consistent with prior appendectomy in the correct clinical setting. Lymph nodes: No lymphadenopathy. Vasculature: Atherosclerosis. No aneurysm. Peritoneum / Retroperitoneum: No free air. No fluid collection or free fluid Bones: No acute fracture or destructive process. Left pelvic kidney. No hydronephrosis. CT/Pelvis without IV Contrast IMPRESSION: Status post right orchiectomy. Bilateral hydroceles. Fat containing right inguinal hernia. Left pelvic kidney. No hydronephrosis. Reading Location: [id number]
== END | disposition home or self-care (01) ==
LOC: CT 17:44
PROVIDERS: PCP Internal Medicine; Referring Provider Urology; Visit Provider Urology
DX: N50.82 Scrotal pain (principal)
CPT/HCPCS: 72192